=== PATIENT | female | born 1955 | race Caucasian/White ===

== ENCOUNTER → 2018-03-29 08:34 | Outpatient (CLI) | payer OTHER, SELFPAY ==
--- NOTE | 2018-03-29 08:40 | BI_ITS ---
MAMMOGRAPHY - BILATERAL SCREENING REASON FOR EXAM: Female, 62 years old. Routine annual screening examination. PERTINENT HISTORY: Non-contributory. TECHNIQUE: Digital bilateral breast hannah (3D mammographic acquisition) in the CC and MLO projections. 2-D mediolateral oblique (MLO) and craniocaudad (CC) views of both breasts were obtained. CAD: Full Field Digital Mammography with Computer Added Detection was performed. COMPARISON: Comparison is made with prior study dated March 21, 2017 and June 06, 2013. FINDINGS: Breast Composition: There are scattered areas of fibroglandular density. There are no dominant masses or suspicious calcifications. Stable appearance of the small calcified nodules in the upper outer quadrant of the right breast. No other significant abnormalities are identified. There has been no significant change since the prior study. BI/SCREENING MAMM (CAD), BILAT IMPRESSION: Stable bilateral screening mammogram. Yearly follow-up mammogram recommended. (A) ASSESSMENT CATEGORY: BIRADS Category 2: Benign. A letter regarding these results will be sent to the patient by the facility within 30 days. Approximately 10% of breast cancers are not detected by mammography. A normal mammogram should not delay biopsy of a clinically suspicious abnormality. [id number] Electronically Signed: Francesco Rodriguez MD at 15:16 EDT Tel [phone], Service support ,
== END ==
PROVIDERS: Visit Provider Family Medicine
DX: Z12.31 Encounter for screening mammogram for malignant neoplasm of breast (principal)
CPT/HCPCS: 77063; 77067

== ENCOUNTER 2018-03-30 02:42 | Emergency (ER) | payer BC, OTHER, SELFPAY ==
[2018-03-30 02:43] VITALS: BP 127/79; PULSE 80; RESP 18; TEMP 36.4; O2SAT 97; BMI 39.9
--- NOTE | 2018-03-30 03:05 | ED.DCSUM_ITS ---
- ER Visit Summary Date of Service: 03/30/18 Chief Complaint: [] Left bicep injury History of Present Illness: The patient is a 62 F [] patient stated she was doing yard work and overdid it and hurt her left bicep 2 days ago. She is having pain in the lateral aspect of the bicep. She is using ibuprofen heat worse with movement. Came in for further evaluation Physical Examination: [] Vital signs reviewed General: Well-nourished well-developed Head: Normocephalic atraumatic Eyes: Pupils equal round and reactive to light extraocular movements intact ENT: TMs clear no hemotympanum no trauma Neck: Nontender full range of motion Cardiovascular: Regular rate rhythm no murmurs normal S1-S2 Respiratory: No distress clear to auscultation bilaterally chest nontender Abdomen: Soft nontender nondistended normal bowel sounds no masses Back: Nontender no CVA tenderness Extremities: Tender left lateral bicep. No swelling or deformity. Tendons are intact. No tenderness of the shoulder tricep Skin: Normal color no trauma Neuro alert oriented cranial nerves II through XII intact normal strength sensation reflexes Test Results: [] Emergency Department Course and Treatment: [] At this time I feel the patient strained her bicep. She will rest and ice and was given David wrap. Was given a shot of Toradol we will continue ibuprofen and anti-inflammatories. Will follow -up as an outpatient. Treatment Plan: [] Disposition: [] Impression: [] Left bicep strain This note was generated with [employer] dictation software. It may contain incorrect words, spelling, and punctuation that were not noted in review of the chart prior to signing ED Disposition - Plan for ED Patient: Chief Complaint: Upper Extremity Injury Referrals: [facility] Doctor,Out of [Primary Care Provider] -
--- NOTE | 2018-03-30 03:05 | ED.DEP ---
ED Disposition - Plan for ED Patient: Chief Complaint: Upper Extremity Injury Instructions: ED Strain Muscle Ext Referrals: [facility] Doctor,Out of [Primary Care Provider] -
[2018-03-30] MEDS: Ketorolac 60 MG/2 ML Vial IM (03:13)
[2018-03-30 03:15] VITALS: PULSE 75; RESP 18
[2018-03-30 03:35] VITALS: BP 128/83; PULSE 71; RESP 18; O2SAT 97
== END 2018-03-30 03:35 | disposition home or self-care (01) ==
LOC: ED 03:12
PROVIDERS: Emergency Provider Emergency Medicine
DX: S46.212A Strain of muscle, fascia and tendon of other parts of biceps, left arm, initial encounter (principal); E66.9 Obesity, unspecified; I10 Essential (primary) hypertension; E78.00 Pure hypercholesterolemia, unspecified; Z79.899 Other long term (current) drug therapy; Z79.82 Long term (current) use of aspirin; X50.0XXA Overexertion from strenuous movement or load, initial encounter; Y93.H2 Activity, gardening and landscaping; Y92.007 Garden or yard of unspecified non-institutional (private) residence as the place of occurrence of the external cause; Y99.8 Other external cause status
CPT/HCPCS: 96372; 99282

== ENCOUNTER 2018-05-15 19:41 | Emergency (ER) | payer BC, OTHER, SELFPAY ==
[2018-05-15 19:41] VITALS: BP 109/66; PULSE 87; RESP 16; TEMP 36.6; O2SAT 99; BMI 39.6
--- NOTE | 2018-05-15 20:10 | RAD_ITS ---
STUDY: X-RAY - LEFT KNEE REASON FOR EXAM: Female, 62 years old. Left knee pain. TECHNIQUE: 3 view(s) of the knee. COMPARISON: None. FINDINGS: Normal visualized distal femur. Normal visualized proximal tibia and fibula. Normal proximal tibiofibular articulation. There is no demonstrated fracture. There is moderate degenerative arthrosis of the medial femorotibial compartment with moderate joint space narrowing. Normal lateral femorotibial compartment. Normal patellofemoral articulation. There is a soft tissue prominence in the suprapatellar region suggesting a small volume joint effusion. The soft tissue structures are unremarkable. RAD/Knee 3 Views IMPRESSION: Small effusion. Degenerative changes of the medial tibiofemoral compartment. Electronically Signed: Gokul Gallagher MD at 20:29 EDT , Service support ,
[2018-05-15] MEDS: HYDROcodone Bitartrate/Apap 5/325 Tablet PO (20:56)
[2018-05-15] MEDS: Triamcinolone Acetonide 40 MG/ML Vial IU (20:57)
--- NOTE | 2018-05-15 22:37 | ED.VISSUMM ---
- ER Visit Summary Date of Service: 05/15/18 Chief Complaint: Left knee pain History of Present Illness: The patient is a [address] Resendez. She reports that she stood from a chair this afternoon had the abrupt onset of left knee pain. She reports the sharp pain is 10 out of 10 at worst and 8 out of 10 currently. Is worsened by bending or near walking. She taken Tylenol without relief. She denies any other trauma. No fall, MVA, or change in activity. She denies any paresthesias or weakness. Review of systems: General: No fever, chills, cold sweats. Cardiovascular: No chest pain, palpitations. Respiratory: No cough, shortness of breath, dyspnea on exertion. Gastrointestinal: No abdominal pain, nausea, vomiting, diarrhea, melena, or hematochezia. Genitourinary: No dysuria, frequency, hematuria. Skin: No rash. Neuro: No headache, numbness, weakness. Physical Examination: Vitals: Stable. Afebrile. General: Well-nourished and well-developed. Head: Normocephalic atraumatic. Neck: Supple, no lymphadenopathy. No JVD. Nontender. Cardiovascular: Regular rate and rhythm. No murmurs. Respiratory: No respiratory distress. Clear to auscultation bilaterally. Abdominal: Soft, nontender, nondistended, normal bowel sounds. No guarding, rebound, or peritoneal signs. Back: Nontender. Extremities: Left knee has a small joint effusion. There is no overlying erythema or warmth to suggest a septic joint. She has pain with anterior drawer, medial, and lateral stress. There is no ligamentous instability. She has a 2+ dorsalis pedis pulse.. Skin: Normal color, no rash. Neurologic: Alert and oriented ?3. Cranial nerves II through XII are intact. Normal strength and sensation. Psych: Normal affect. Test Results: X-ray shows a small effusion and degenerative changes. Emergency Department Course and Treatment: Patient was treated with [place]. I had a prolonged discussion about the possibility of arthrocentesis. She did opt for this. She does understand that this increases the risk of a joint infection. She had 20 cc of synovial fluid removed and 9 cc of bupivacaine and 40 mg of Kenalog were instilled in the joint. She had great relief of her pain. Treatment Plan: Patient be discharged instructions follow Dr. Soria within a week if not improving. Return to the emergency department for any worsening symptoms. Disposition: To home in improved and stable condition. Impression: 1. Left knee pain, acute. 2. Therapeutic arthrocentesis left knee. Procedure note: Patient had her left knee prepped with Betadine. It was then draped in a sterile fashion. The medial side of her joint just beneath her patella was accessed with an 18-gauge needle. 20 cc of synovial fluid were removed. Bupivacaine and Kenalog were instilled. She tolerated this well. This note was generated with [employer] dictation software. It may contain incorrect words, spelling, and punctuation that were not noted in review of the chart prior to signing ED Disposition - Plan for ED Patient: Disposition: Home or Assisted Living Chief Complaint: Lower Extremity Injury Instructions: ED Knee Pain [facility]O Prescriptions: Hydrocodone/Acetaminophen [[place] 5-325 Tablet] 1 - 2 each PO 4X/DAY PRN PRN 5 Days #20 tablet PRN Reason: Pain Referrals: Javi Soria DO [STAFF PHYSICIAN] - 1 Week if not improving
[2018-05-15] MEDS: Bupivacaine Mpf 0.5% 30 ML VIAL INFILT (22:49)
[2018-05-15 22:50] VITALS: PULSE 98; RESP 14; O2SAT 98
== END 2018-05-15 23:02 | disposition home or self-care (01) ==
LOC: ED 20:48
PROVIDERS: Emergency Provider Emergency Medicine; Family Provider Family Medicine; PCP Family Medicine
DX: M25.562 Pain in left knee (principal); M25.462 Effusion, left knee; I10 Essential (primary) hypertension; E78.00 Pure hypercholesterolemia, unspecified; Z79.82 Long term (current) use of aspirin; Z79.899 Other long term (current) drug therapy
CPT/HCPCS: 20610; 73562; 99284

== ENCOUNTER 2018-06-05 01:03 | Emergency (ER) | payer SELFPAY ==
[2018-06-05 01:05] VITALS: BP 134/67; PULSE 64; RESP 18; TEMP 36.4; O2SAT 95; BMI 39.1
--- NOTE | 2018-06-05 01:58 | ED.VIS.GEN ---
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 - Past Medical History (1) Diabetes mellitus type 2, noninsulin dependent Status: Chronic Past Medical History - Allergies and Home Meds Allergies/Adverse Reactions: Allergies diflunisal [From Dolob[place]] Allergy (Verified 06/05/18 01:10) Rash Primary Care Physician: Laurent Resendez MD [Primary Care Provider] - Smoking Status: Never smoker Review of Systems All systems negative except as indicated General: Denies: Chills, Fever Musculoskeletal: Reports: Arthralgias - other joints but not all, Extremity Pain. Denies: Back pain Skin: Denies: Rash Physical Exam Vital Signs/Narrative: Vital Signs Temp Pulse Resp BP Pulse Ox 06/05/18 01:05 97.5 F L 64 18 134/67 H 95 Inital Vital Signs reviewed: Yes General: Well nourished, Well developed Head: Normocephalic, Atraumatic Extremities: Tenderness - right wrist at median nerve tunnel; Tinels causes pain but not tingling/numbness. Positive Phalen test, reproducing numbness in median nerve distribution., - - good ROM right wrist. no erythema or excessive warmth. Neurological: Alert, Oriented x3, Cranial nerves II-XII grossly intact, Normal Strength, Normal Sensation Psychological: Normal affect Diagnostic/Tx/Re-eval - Medical Decision Making Likely carpal tunnel syndrome. She states she already bought a brace. We discussed bending it into the right position, continuing anti-inflammatories, gave her a prescription for a few Ultram, and advised to follow-up with her orthopedic doctor who she saw a week ago. ED Disposition - Plan for ED Patient: Disposition: Home or Assisted Living Chief Complaint: Upper Extremity Injury Diagnosis: Carpal tunnel syndrome of right wrist Instructions: ED Carpal Tunnel Prescriptions: traMADol [Ultram] 50 mg PO Q4H PRN PRN 2 Days #10 tab PRN Reason: Pain Referrals: Srikanth Adams DO [STAFF PHYSICIAN] - 1 Week if not improving Additional Instructions: continue using NSAIDs daily as tolerated.
[2018-06-05 02:11] VITALS: BP 130/60; PULSE 75; RESP 16; O2SAT 97
[2018-06-05] MEDS: traMADol 50 MG Tablet PO (02:11)
== END 2018-06-05 02:13 | disposition home or self-care (01) ==
PROVIDERS: Emergency Provider Emergency Medicine; Family Provider Family Medicine; PCP Family Medicine
DX: G56.01 Carpal tunnel syndrome, right upper limb (principal); E11.9 Type 2 diabetes mellitus without complications; Z79.82 Long term (current) use of aspirin; Z79.899 Other long term (current) drug therapy
CPT/HCPCS: 99283

== ENCOUNTER → 2018-09-21 10:07 | Outpatient (CLI) | payer SELFPAY ==
--- NOTE | 2018-09-21 10:11 | RAD_ITS ---
STUDY: X-RAY - RIGHT HAND REASON FOR EXAM: Female, 62 years old. Rheumatoid arthritis, fibromyalgia TECHNIQUE: 3 view(s) of the hand. COMPARISON: None. FINDINGS: Normal radiocarpal articulation. Normal distal radioulnar joint. Normal visualized carpal bones. 2 mild degenerative changes of the greater multangular navicular joint. There is degenerative arthrosis of the carpometacarpal (CMC) articulation of the thumb. Normal second through fifth carpometacarpal joints. Normal metacarpi. There is degenerative arthrosis of the metacarpophalangeal (MCP) joints. There is degenerative arthrosis of the interphalangeal joint of the thumb with articular joint space narrowing. Normal proximal and distal phalanges of the thumb. Normal metacarpophalangeal joints of the second through fifth fingers. There are mild arthritic changes of the second through fifth MP joints. Normal phalanges of the second through fifth fingers. The soft tissue structures are unremarkable. RAD/Hand Min 3 Views IMPRESSION: Diffuse osteoarthritic changes as detailed above. No joint erosions or abnormal soft tissue calcifications are seen. Electronically Signed: Juan Subramanian MD at 18:16 EST , Service support ,
--- NOTE | 2018-09-21 10:11 | RAD_ITS ---
STUDY: X-RAY - LEFT HAND REASON FOR EXAM: Female, 62 years old. Rheumatoid arthritis, fibromyalgia TECHNIQUE: 3 view(s) of the hand. COMPARISON: None. FINDINGS: Normal radiocarpal articulation. Normal distal radioulnar joint. Normal visualized carpal bones. There mild degenerative changes of the greater multangular navicular joint. There is degenerative arthrosis of the carpometacarpal (CMC) articulation of the thumb. Normal second through fifth carpometacarpal joints. Normal metacarpi. There is degenerative arthrosis of the metacarpophalangeal (MCP) joints. There is degenerative arthrosis of the interphalangeal joint of the thumb with articular joint space narrowing. Normal proximal and distal phalanges of the thumb. Normal metacarpophalangeal joints of the second through fifth fingers. There are osteoarthritic changes of the second, third, and fourth DIP joints. Normal phalanges of the second through fifth fingers. The soft tissue structures are unremarkable. RAD/Hand Min 3 Views IMPRESSION: Diffuse osteoarthritic changes as detailed above. No osseous erosions or abnormal soft tissue calcifications are seen. Electronically Signed: Juan Subramanian MD at 18:15 EST , Service support ,
[2018-09-21 12:24] LABS: Absolute Lymphocyte Count 1.36 X10^3/ul (0.83-4.51); Absolute Neutrophil Count 6.9 X10^3/uL (2.0-7.7); Basophil# 0.04 X10^3/uL; Basophil% 0.4 % (0-1); Eosinophil# 0.46 X10^3/uL; Eosinophils% 4.9 % (0-5); Hematocrit 39.1 % (37-47); Hemoglobin 12.4 g/dl (12.0-15.0); Lymphocyte # 1.36 X10^3/ul (4.0); Lymphocyte % 14.3 % (19-41); Mean Corp Hgb Conc 31.7 g/gl (32-36); Mean Corpuscular Hgb 27.8 pg (27.0-32.0); Mean Corpuscular Volume 87.7 fL (81-99); Mean Platelet Vol. 9.4 fl (6.2-12.0); Monocyte# 0.69 X10^3/uL; Monocyte% 7.3 % (0-10); Neutrophil % 72.8 % (47-70); Platelet Count 314 K/mm3 (150-450); RBC Distribution Width CV 13.2 % (11.6-14.6); Red Blood Count 4.46 M/mm3 (4.2-5.4); White Blood Count 9.5 K/mm3 (4.4-11.0)
[2018-09-21 12:27] LABS: POSITIVE COUNT NO; POSITIVE DIFFERENTIAL NO; POSITIVE MORPHOLOGY NO
[2018-09-21 12:38] LABS: ALB/GLOB Ratio 0.8 RATIO (0.9-2.4); AST(SGOT) 13 U/L (15-37); Alanine Aminotransfer ALT/SGPT 22 U/L (13-56); Albumin, Serum 3.3 g/dL (3.2-5.0); Alkaline Phosphatase 65 U/L (45-117); Anion Gap 9 (5-15); BUN 22 mg/dL (7-18); BUN/Creat Ratio 30.2 RATIO (10-20); Calcium,Total 9.6 mg/dL (8.5-10.1); Chloride 106 mmol/L (98-107); Creatinine, Serum 0.73 mg/dL (0.55-1.02); EST Glomerular Filtration Rate 86 mL/min (>60); Est Glom Filt Rate - Afr Amer 104 mL/min (>60); Globulin 4.2 g/dL (2.2-4.2); Glucose 110 mg/dL (74-106); Potassium 3.9 mmol/L (3.5-5.1); Protein, Total 7.5 g/dL (6.4-8.2); Sodium Level 140 mmol/L (136-145)
[2018-09-25 10:11] LABS: CCP IgG Antibodies > 250 units (0-19); HEPATITIS B SURFACE AG Negative (Negative); Hep B Surface Antibodies Non Reactive (.); Hep C Antibodies <0.1 s/co ratio (0.0-0.9)
== END ==
PROVIDERS: Family Provider Family Medicine; PCP Family Medicine; Referring Provider Internal Medicine Rheumatology; Visit Provider Internal Medicine Rheumatology
DX: M05.79 Rheumatoid arthritis with rheumatoid factor of multiple sites without organ or systems involvement (principal); M79.7 Fibromyalgia; M15.9 Polyosteoarthritis, unspecified
CPT/HCPCS: 36415; 73130; 80053; 85025; 86200; 86706; 86803; 87340

== ENCOUNTER 2018-09-24 04:32 | Emergency (ER) | payer SELFPAY ==
[2018-09-24 04:33] VITALS: BP 136/71; PULSE 82; RESP 18; TEMP 36.4; O2SAT 98; BMI 38.2
--- NOTE | 2018-09-24 05:12 | RAD_ITS ---
HISTORY: C/O RT KNEE PAINNKIHX OF ARTHRITIS COMPARISON: None FINDINGS: XR right Knee Complete 4 Views or More: No fracture or acute disease. Joint spaces appear preserved. No significant arthritis. A small developmental defect (dorsal patellar defect) may be present. No significant joint effusion. IMPRESSION: No acute disease or suspicious findings. No significant arthritis. at 0572 Reported and signed by: Toan Rivera MD Electronically Signed: Toan Rivera, at 5:49 EST Tel , Service support , RAD/Knee 4 or More Views
--- NOTE | 2018-09-24 05:28 | ED.VISSUMM ---
- ER Visit Summary Date of Service: 09/24/18 Chief Complaint: Right knee pain History of Present Illness: The patient is a 62 F presenting with right knee pain. Patient states this has been ongoing for the past week. She denies injury or trauma. She was seen by her systems coordinator on Monday. She was started on prednisone which she started on Monday. She has been taking Tylenol arthritis as well. She complains of continued pain. Denies fever or other complaints. Physical Examination: Vitals are stable. Patient is afebrile. Alert no acute distress. HEENT exam is unremarkable. Lungs are clear and equal bilaterally. Heart is regular rate and rhythm. Extremities right lateral knee tenderness to palpation. Active full range of motion. No erythema, no warmth. Normal distal pulses. No calf tenderness. Skin is warm and dry. No focal neurologic deficit. Remainder of exam is unremarkable. Emergency Department Course and Treatment: Right knee x-ray shows no acute process. Patient was given [place] and a prescription for short course of [place]. She is advised to follow-up with her primary care physician and systems coordinator. She is advised to return to ED if worsening complaints. Disposition: Discharge home Impression: Right knee pain This note was generated with [employer] dictation software. It may contain incorrect words, spelling, and punctuation that were not noted in review of the chart prior to signing ED Disposition - Plan for ED Patient: Chief Complaint: Lower Extremity Injury Instructions: ED Knee Pain [facility] Prescriptions: Hydrocodone Bitart/Apap 5-325 [[place] 5MG-325MG] 1 tablet PO Q6H PRN PRN 3 Days #10 tablet PRN Reason: Pain Referrals: Laurent Resendez MD [Primary Care Provider] -
--- NOTE | 2018-09-24 06:06 | DCINST.ED_ITS ---
ED Disposition - Plan for ED Patient: Chief Complaint: Lower Extremity Injury Instructions: ED Knee Pain [facility]O Prescriptions: Hydrocodone Bitart/Apap 5-325 [[place] 5MG-325MG] 1 tablet PO Q6H PRN PRN 3 Days #10 tablet PRN Reason: Pain Referrals: Laurent Resendez MD [Primary Care Provider] -
[2018-09-24] MEDS: HYDROcodone Bitartrate/Apap 5/325 Tablet PO (06:16)
[2018-09-24 06:19] VITALS: BP 154/89; PULSE 85; RESP 18; O2SAT 95
== END 2018-09-24 06:39 | disposition home or self-care (01) ==
PROVIDERS: Emergency Provider Emergency Medicine; Family Provider Family Medicine; PCP Family Medicine
DX: M25.561 Pain in right knee (principal); M06.9 Rheumatoid arthritis, unspecified; Z79.52 Long term (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 of systemic steroids
CPT/HCPCS: 73564; 99284

== ENCOUNTER → 2018-09-24 12:31 | Outpatient (CLI) | payer BC, SELFPAY ==
[2018-09-24 04:33] VITALS: BMI 38.2
== END ==
PROVIDERS: Family Provider Family Medicine; PCP Family Medicine; Referring Provider Internal Medicine Rheumatology; Visit Provider Internal Medicine Rheumatology
DX: M05.79 Rheumatoid arthritis with rheumatoid factor of multiple sites without organ or systems involvement (principal)

== ENCOUNTER → 2018-12-21 08:06 | Outpatient (CLI) | payer SELFPAY ==
[2018-12-21 10:05] LABS: Absolute Lymphocyte Count 1.01 X10^3/ul (0.83-4.51); Absolute Neutrophil Count 7.1 X10^3/uL (2.0-7.7); Basophil# 0.03 X10^3/uL; Basophil% 0.4 % (0-1); Eosinophil# 0.03 X10^3/uL; Eosinophils% 0.4 % (0-5); Hematocrit 46.4 % (37-47); Hemoglobin 14.3 g/dl (12.0-15.0); Lymphocyte # 1.01 X10^3/ul (4.0); Lymphocyte % 11.9 % (19-41); Mean Corp Hgb Conc 30.8 g/gl (32-36); Mean Corpuscular Hgb 28.8 pg (27.0-32.0); Mean Corpuscular Volume 93.4 fL (81-99); Mean Platelet Vol. 10.2 fl (6.2-12.0); Monocyte# 0.21 X10^3/uL; Monocyte% 2.5 % (0-10); Neutrophil # 7.07 X10^3/uL (2.7-7.7); Platelet Count 250 K/mm3 (150-450); RBC Distribution Width CV 15.9 % (11.6-14.6); Red Blood Count 4.97 M/mm3 (4.2-5.4); White Blood Count 8.5 K/mm3 (4.4-11.0)
[2018-12-21 10:13] LABS: POSITIVE COUNT NO; POSITIVE DIFFERENTIAL NO; POSITIVE MORPHOLOGY NO
[2018-12-21 10:18] LABS: AST(SGOT) 11 U/L (15-37); Alanine Aminotransfer ALT/SGPT 28 U/L (13-56); Albumin, Serum 3.5 g/dL (3.2-5.0); Alkaline Phosphatase 54 U/L (45-117); Anion Gap 9 (5-15); BUN 22 mg/dL (7-18); BUN/Creat Ratio 23.4 RATIO (10-20); Calcium,Total 8.2 mg/dL (8.5-10.1); Chloride 106 mmol/L (98-107); Creatinine, Serum 0.94 mg/dL (0.55-1.02); EST Glomerular Filtration Rate 64 mL/min (>60); Est Glom Filt Rate - Afr Amer 78 mL/min (>60); Globulin 3.4 g/dL (2.2-4.2); Glucose 189 mg/dL (74-106); Protein, Total 6.9 g/dL (6.4-8.2); Sodium Level 137 mmol/L (136-145)
== END ==
PROVIDERS: Family Provider Family Medicine; PCP Family Medicine; Referring Provider Internal Medicine Rheumatology; Visit Provider Internal Medicine Rheumatology
DX: M06.89 Other specified rheumatoid arthritis, multiple sites (principal); M79.7 Fibromyalgia; M15.9 Polyosteoarthritis, unspecified; M21.40 Flat foot [pes planus] (acquired), unspecified foot; I10 Essential (primary) hypertension; E11.9 Type 2 diabetes mellitus without complications; E78.5 Hyperlipidemia, unspecified; L68.0 Hirsutism; F32.89 Other specified depressive episodes
CPT/HCPCS: 36415; 80053; 85025

== ENCOUNTER → 2019-02-15 | Outpatient (CLI) | payer OTHER, SELFPAY ==
[2019-02-15 10:26] LABS: Absolute Neutrophil Count 6.3 X10^3/uL (2.0-7.7); Basophil# 0.02 X10^3/uL; Basophil% 0.3 % (0-1); Eosinophil# 0.03 X10^3/uL; Eosinophils% 0.4 % (0-5); Hematocrit 42.6 % (37-47); Hemoglobin 13.8 g/dl (12.0-15.0); Mean Corp Hgb Conc 32.4 g/gl (32-36); Mean Corpuscular Hgb 30.5 pg (27.0-32.0); Mean Corpuscular Volume 94.2 fL (81-99); Mean Platelet Vol. 9.8 fl (6.2-12.0); Monocyte# 0.19 X10^3/uL; Monocyte% 2.5 % (0-10); Neutrophil # 6.25 X10^3/uL (2.7-7.7); Neutrophil % 83.6 % (47-70); Platelet Count 240 K/mm3 (150-450); RBC Distribution Width SD 50.7 fl (35.1-43.9); Red Blood Count 4.52 M/mm3 (4.2-5.4); White Blood Count 7.5 K/mm3 (4.4-11.0)
[2019-02-15 10:35] LABS: POSITIVE COUNT NO; POSITIVE DIFFERENTIAL NO; POSITIVE MORPHOLOGY NO
[2019-02-15 10:40] LABS: ALB/GLOB Ratio 1.1 RATIO (0.9-2.4); AST(SGOT) 17 U/L (15-37); Alanine Aminotransfer ALT/SGPT 29 U/L (13-56); Albumin, Serum 3.5 g/dL (3.2-5.0); Alkaline Phosphatase 53 U/L (45-117); Anion Gap 7 (5-15); BUN 20 mg/dL (7-18); Chloride 106 mmol/L (98-107); EST Glomerular Filtration Rate 60 mL/min (>60); Est Glom Filt Rate - Afr Amer 72 mL/min (>60); Globulin 3.3 g/dL (2.2-4.2); Glucose 160 mg/dL (74-106); Potassium 4.3 mmol/L (3.5-5.1); Protein, Total 6.8 g/dL (6.4-8.2); Sodium Level 139 mmol/L (136-145)
== END | disposition home or self-care (01) ==
LOC: MTLAB 08:15
PROVIDERS: Family Provider Family Medicine; PCP Family Medicine; Referring Provider Internal Medicine Rheumatology; Visit Provider Internal Medicine Rheumatology
DX: M05.79 Rheumatoid arthritis with rheumatoid factor of multiple sites without organ or systems involvement (principal); M79.7 Fibromyalgia; M15.9 Polyosteoarthritis, unspecified; M21.40 Flat foot [pes planus] (acquired), unspecified foot; I10 Essential (primary) hypertension; E11.9 Type 2 diabetes mellitus without complications; E78.5 Hyperlipidemia, unspecified; L68.0 Hirsutism; F32.89 Other specified depressive episodes; Z79.899 Other long term (current) drug therapy
CPT/HCPCS: 36415; 80053; 85025

== ENCOUNTER → 2019-05-27 08:20 | Outpatient (CLI) | payer OTHER, SELFPAY ==
[2019-05-27 09:59] LABS: Absolute Lymphocyte Count 1.63 X10^3/uL (0.83-4.51); Absolute Neutrophil Count 6.6 X10^3/uL (2.0-7.7); Basophil# 0.06 X10^3/uL; Basophil% 0.7 % (0-1); Eosinophil# 0.13 X10^3/uL; Eosinophils% 1.5 % (0-5); Hematocrit 41.8 % (37-47); Hemoglobin 13.5 g/dL (12.0-15.0); Lymphocyte # 1.63 X10^3/ul (4.0); Lymphocyte % 18.3 % (19-41); Mean Corp Hgb Conc 32.3 g/dL (32-36); Mean Corpuscular Hgb 30.8 pg (27.0-32.0); Mean Corpuscular Volume 95.4 fL (81-99); Mean Platelet Vol. 10.2 fl (6.2-12.0); Monocyte# 0.36 X10^3/uL; NRBC Flagged by Analyzer 0 % (0-5); Neutrophil # 6.63 X10^3/uL (2.7-7.7); Neutrophil % 74.4 % (47-70); Platelet Count 269 K/mm3 (150-450); RBC Distribution Width CV 12.8 % (11.6-14.6); RBC Distribution Width SD 44.4 fl (35.1-43.9); Red Blood Count 4.38 M/mm3 (4.2-5.4); White Blood Count 8.9 K/mm3 (4.4-11.0)
[2019-05-27 10:29] LABS: ALB/GLOB Ratio 1.1 RATIO (0.9-2.4); AST(SGOT) 20 U/L (15-37); Alanine Aminotransfer ALT/SGPT 40 U/L (13-56); Albumin, Serum 3.7 g/dL (3.2-5.0); Alkaline Phosphatase 66 U/L (45-117); Anion Gap 7 (5-15); BUN 21 mg/dL (7-18); Calcium,Total 9.1 mg/dL (8.5-10.1); Chloride 107 mmol/L (98-107); Creatinine, Serum 0.95 mg/dL (0.55-1.02); EST Glomerular Filtration Rate 63 mL/min (>60); Est Glom Filt Rate - Afr Amer 76 mL/min (>60); Globulin 3.3 g/dL (2.2-4.2); Glucose 176 mg/dL (74-106); Potassium 4.1 mmol/L (3.5-5.1); Sodium Level 139 mmol/L (136-145)
== END ==
PROVIDERS: Family Provider Family Medicine; PCP Family Medicine; Referring Provider Internal Medicine Rheumatology; Visit Provider Internal Medicine Rheumatology
DX: M05.79 Rheumatoid arthritis with rheumatoid factor of multiple sites without organ or systems involvement (principal); M79.7 Fibromyalgia; M15.9 Polyosteoarthritis, unspecified; M21.40 Flat foot [pes planus] (acquired), unspecified foot; I10 Essential (primary) hypertension; E11.9 Type 2 diabetes mellitus without complications; E78.5 Hyperlipidemia, unspecified; L68.0 Hirsutism; F32.89 Other specified depressive episodes; Z79.899 Other long term (current) drug therapy
CPT/HCPCS: 36415; 80053; 85025

== ENCOUNTER → 2019-08-23 | Outpatient (CLI) | payer OTHER, SELFPAY ==
[2019-08-23 10:10] LABS: Absolute Neutrophil Count 8.6 X10^3/uL (2.0-7.7); Basophil# 0.03 X10^3/uL; Basophil% 0.3 % (0-1); Eosinophil# 0.05 X10^3/uL; Eosinophils% 0.5 % (0-5); Hematocrit 45.7 % (37-47); Hemoglobin 14.8 g/dL (12.0-15.0); Lymphocyte % 9.8 % (19-41); Mean Corp Hgb Conc 32.4 g/dL (32-36); Mean Corpuscular Hgb 31.2 pg (27.0-32.0); Mean Corpuscular Volume 96.4 fL (81-99); Mean Platelet Vol. 9.5 fl (6.2-12.0); Monocyte# 0.32 X10^3/uL; Monocyte% 3.1 % (0-10); NRBC Flagged by Analyzer 0 % (0-5); Neutrophil # 8.63 X10^3/uL (2.7-7.7); Neutrophil % 84.5 % (47-70); POSITIVE MORPHOLOGY YES; Platelet Count 283 K/mm3 (150-450); RBC Distribution Width CV 13.1 % (11.6-14.6); Red Blood Count 4.74 M/mm3 (4.2-5.4); White Blood Count 10.2 K/mm3 (4.4-11.0)
[2019-08-23 10:21] LABS: Differential Indicated SCAN CRITERIA MET
[2019-08-23 11:04] LABS: AST(SGOT) 22 U/L (15-37); Alanine Aminotransfer ALT/SGPT 41 U/L (13-56); Albumin, Serum 3.7 g/dL (3.2-5.0); Alkaline Phosphatase 59 U/L (45-117); Anion Gap 11 (5-15); BUN 16 mg/dL (7-18); BUN/Creat Ratio 14.3 RATIO (10-20); Calcium,Total 9.3 mg/dL (8.5-10.1); Chloride 104 mmol/L (98-107); Creatinine, Serum 1.12 mg/dL (0.55-1.02); EST Glomerular Filtration Rate 52 mL/min (>60); Est Glom Filt Rate - Afr Amer 63 mL/min (>60); Globulin 3.6 g/dL (2.2-4.2); Glucose 187 mg/dL (74-106); Potassium 4.2 mmol/L (3.5-5.1); Protein, Total 7.3 g/dL (6.4-8.2); Sodium Level 139 mmol/L (136-145)
== END | disposition home or self-care (01) ==
LOC: MTLAB 08:12
PROVIDERS: Family Provider Family Medicine; PCP Family Medicine; Referring Provider Internal Medicine Rheumatology; Visit Provider Internal Medicine Rheumatology
DX: M05.79 Rheumatoid arthritis with rheumatoid factor of multiple sites without organ or systems involvement (principal); M79.7 Fibromyalgia; M15.9 Polyosteoarthritis, unspecified; Z79.899 Other long term (current) drug therapy
CPT/HCPCS: 36415; 80053; 85025

== ENCOUNTER → 2019-11-19 | Outpatient (CLI) | payer OTHER, SELFPAY ==
[2019-11-19 10:37] LABS: Absolute Lymphocyte Count 1.22 X10^3/uL (0.83-4.51); Basophil# 0.09 X10^3/uL; Eosinophil# 0.12 X10^3/uL; Eosinophils% 1.3 % (0-5); Hemoglobin 14.5 g/dL (12.0-15.0); Lymphocyte # 1.22 X10^3/ul (4.0); Lymphocyte % 13.4 % (19-41); Mean Corp Hgb Conc 31.5 g/dL (32-36); Mean Corpuscular Hgb 30.5 pg (27.0-32.0); Mean Corpuscular Volume 96.8 fL (81-99); Mean Platelet Vol. 10.1 fl (6.2-12.0); Monocyte# 0.49 X10^3/uL; Monocyte% 5.4 % (0-10); NRBC Flagged by Analyzer 0 % (0-5); Neutrophil % 76.7 % (47-70); Platelet Count 303 K/mm3 (150-450); RBC Distribution Width CV 12.9 % (11.6-14.6); RBC Distribution Width SD 45.8 fl (35.1-43.9); Red Blood Count 4.75 M/mm3 (4.2-5.4); White Blood Count 9.1 K/mm3 (4.4-11.0)
[2019-11-19 11:17] LABS: ALB/GLOB Ratio 1.2 RATIO (0.9-2.4); AST(SGOT) 21 U/L (15-37); Alanine Aminotransfer ALT/SGPT 39 U/L (13-56); Albumin, Serum 3.9 g/dL (3.2-5.0); Alkaline Phosphatase 55 U/L (45-117); Anion Gap 8 (5-15); BUN 16 mg/dL (7-18); BUN/Creat Ratio 16.4 RATIO (10-20); Calcium,Total 9.6 mg/dL (8.5-10.1); Chloride 104 mmol/L (98-107); Creatinine, Serum 0.98 mg/dL (0.55-1.02); EST Glomerular Filtration Rate 61 mL/min (>60); Est Glom Filt Rate - Afr Amer 74 mL/min (>60); Globulin 3.2 g/dL (2.2-4.2); Glucose 147 mg/dL (74-106); Potassium 4.1 mmol/L (3.5-5.1); Protein, Total 7.1 g/dL (6.4-8.2); Sodium Level 138 mmol/L (136-145)
== END | disposition home or self-care (01) ==
LOC: MTLAB 07:38
PROVIDERS: PCP Family Medicine; Referring Provider Internal Medicine Rheumatology; Visit Provider Internal Medicine Rheumatology
DX: M05.79 Rheumatoid arthritis with rheumatoid factor of multiple sites without organ or systems involvement (principal); M79.7 Fibromyalgia; M15.9 Polyosteoarthritis, unspecified; M21.40 Flat foot [pes planus] (acquired), unspecified foot; I10 Essential (primary) hypertension; E78.5 Hyperlipidemia, unspecified; L68.0 Hirsutism; F32.89 Other specified depressive episodes; E11.9 Type 2 diabetes mellitus without complications; Z79.899 Other long term (current) drug therapy
CPT/HCPCS: 36415; 80053; 85025

== ENCOUNTER → 2020-02-01 | Outpatient (CLI) | payer OTHER, SELFPAY ==
[2020-02-01 11:33] LABS: Absolute Lymphocyte Count 1.65 X10^3/uL (0.83-4.51); Absolute Neutrophil Count 5.8 X10^3/uL (2.0-7.7); Basophil# 0.08 X10^3/uL; Basophil% 0.9 % (0-1); Eosinophil# 0.08 X10^3/uL; Eosinophils% 0.9 % (0-5); Hematocrit 45.9 % (37-47); Hemoglobin 14.8 g/dL (12.0-15.0); Lymphocyte # 1.65 X10^3/ul (4.0); Lymphocyte % 19.5 % (19-41); Mean Corp Hgb Conc 32.2 g/dL (32-36); Mean Corpuscular Hgb 30.7 pg (27.0-32.0); Mean Corpuscular Volume 95.2 fL (81-99); Mean Platelet Vol. 9.7 fl (6.2-12.0); Monocyte# 0.77 X10^3/uL; Monocyte% 9.1 % (0-10); NRBC Flagged by Analyzer 0 % (0-5); Neutrophil % 68.4 % (47-70); Platelet Count 298 K/mm3 (150-450); RBC Distribution Width CV 13.6 % (11.6-14.6); RBC Distribution Width SD 47.8 fl (35.1-43.9); Red Blood Count 4.82 M/mm3 (4.2-5.4); White Blood Count 8.5 K/mm3 (4.4-11.0)
[2020-02-01 11:46] LABS: ALB/GLOB Ratio 1.1 RATIO (0.9-2.4); AST(SGOT) 30 U/L (15-37); Alanine Aminotransfer ALT/SGPT 49 U/L (13-56); Albumin, Serum 4.1 g/dL (3.2-5.0); Alkaline Phosphatase 58 U/L (45-117); Anion Gap 7 (5-15); BUN 21 mg/dL (7-18); BUN/Creat Ratio 18.4 RATIO (10-20); Calcium,Total 9.1 mg/dL (8.5-10.1); Chloride 103 mmol/L (98-107); Creatinine, Serum 1.14 mg/dL (0.55-1.02); EST Glomerular Filtration Rate 51 mL/min (>60); Est Glom Filt Rate - Afr Amer 62 mL/min (>60); Globulin 3.6 g/dL (2.2-4.2); Glucose 102 mg/dL (74-106); Potassium 4.6 mmol/L (3.5-5.1); Protein, Total 7.7 g/dL (6.4-8.2); Sodium Level 139 mmol/L (136-145)
== END | disposition home or self-care (01) ==
LOC: LAB 11:07
PROVIDERS: PCP Family Medicine; Referring Provider Internal Medicine Rheumatology; Visit Provider Internal Medicine Rheumatology
DX: M05.79 Rheumatoid arthritis with rheumatoid factor of multiple sites without organ or systems involvement (principal); M79.7 Fibromyalgia; M15.9 Polyosteoarthritis, unspecified; M21.40 Flat foot [pes planus] (acquired), unspecified foot; I10 Essential (primary) hypertension; E11.9 Type 2 diabetes mellitus without complications; E78.5 Hyperlipidemia, unspecified; L68.0 Hirsutism; F32.89 Other specified depressive episodes; Z79.899 Other long term (current) drug therapy
CPT/HCPCS: 36415; 80053; 85025

== ENCOUNTER → 2020-04-21 | Outpatient (CLI) | payer OTHER, SELFPAY ==
[2020-04-21 15:20] LABS: Absolute Lymphocyte Count 1.28 X10^3/uL (0.83-4.51); Absolute Neutrophil Count 8.4 X10^3/uL (2.0-7.7); Basophil# 0.05 X10^3/uL; Basophil% 0.5 % (0-1); Eosinophil# 0.02 X10^3/uL; Eosinophils% 0.2 % (0-5); Hematocrit 44.4 % (37-47); Hemoglobin 13.8 g/dL (12.0-15.0); Lymphocyte # 1.28 X10^3/ul (4.0); Lymphocyte % 12.3 % (19-41); Mean Corp Hgb Conc 31.1 g/dL (32-36); Mean Corpuscular Hgb 30.8 pg (27.0-32.0); Mean Corpuscular Volume 99.1 fL (81-99); Mean Platelet Vol. 10.3 fl (6.2-12.0); Monocyte# 0.48 X10^3/uL; Monocyte% 4.6 % (0-10); NRBC Flagged by Analyzer 0 % (0-5); Neutrophil # 8.39 X10^3/uL (2.7-7.7); Neutrophil % 80.7 % (47-70); Platelet Count 285 K/mm3 (150-450); RBC Distribution Width CV 13.3 % (11.6-14.6); RBC Distribution Width SD 47.7 fl (35.1-43.9); Red Blood Count 4.48 M/mm3 (4.2-5.4); White Blood Count 10.4 K/mm3 (4.4-11.0)
[2020-04-21 15:45] LABS: AST(SGOT) 18 U/L (15-37); Alanine Aminotransfer ALT/SGPT 37 U/L (13-56); Albumin, Serum 3.6 g/dL (3.2-5.0); Alkaline Phosphatase 56 U/L (45-117); Anion Gap 8 (5-15); BUN 17 mg/dL (7-18); BUN/Creat Ratio 19.9 RATIO (10-20); Chloride 105 mmol/L (98-107); Creatinine, Serum 0.86 mg/dL (0.55-1.02); EST Glomerular Filtration Rate 71 mL/min (>60); Est Glom Filt Rate - Afr Amer 86 mL/min (>60); Globulin 3.7 g/dL (2.2-4.2); Glucose 128 mg/dL (74-106); Potassium 3.8 mmol/L (3.5-5.1); Protein, Total 7.3 g/dL (6.4-8.2); Sodium Level 140 mmol/L (136-145)
== END | disposition home or self-care (01) ==
LOC: LAB.FUTURE 12:07
PROVIDERS: PCP Family Medicine; Referring Provider Internal Medicine Rheumatology; Visit Provider Internal Medicine Rheumatology
DX: M05.712 Rheumatoid arthritis with rheumatoid factor of left shoulder without organ or systems involvement (principal); M79.7 Fibromyalgia; M15.9 Polyosteoarthritis, unspecified; M21.40 Flat foot [pes planus] (acquired), unspecified foot; I10 Essential (primary) hypertension; Z79.899 Other long term (current) drug therapy
CPT/HCPCS: 36415; 80053; 85025

== ENCOUNTER → 2020-05-04 | Outpatient (CLI) | payer OTHER, SELFPAY ==
--- NOTE | 2020-05-04 12:24 | RAD_ITS ---
STUDY: X-RAY CHEST REASON FOR EXAM: Female, 64 years old. 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 COMPARISON: None. FINDINGS: The lungs are clear and expanded. There is no demonstrated pleural abnormality. Normal size heart. Normal mediastinum and luis. Normal visualized pulmonary arteries. Normal visualized aortic arch and descending thoracic aorta. Normal visualized thoracic spine. Normal visualized ribs, clavicles, and shoulders. There is no demonstrated abnormality of the visualized soft tissue structures of the upper abdomen. RAD/Chest PA and Lateral IMPRESSION: Normal x-ray examination of the chest. Electronically Signed: Antony Dumont MD at 12:51 EDT , Service support ,
[2020-05-06 16:09] LABS: QNTFERON TB Mitogen Value > 10.00 IU/mL (.); QNTFERON TB Nil Value 0.02 IU/mL (.); QNTFERON TB1+ Ag Value 0.02 IU/mL (.); QNTFERON TB2+ Ag Value 0.02 IU/mL (.)
[2020-05-06 19:58] LABS: QNTIFERON TB Positive Criteria Negative (Negative)
== END | disposition home or self-care (01) ==
PROVIDERS: PCP Family Medicine; Referring Provider Internal Medicine Rheumatology; Visit Provider Internal Medicine Rheumatology
DX: M05.712 Rheumatoid arthritis with rheumatoid factor of left shoulder without organ or systems involvement (principal); M79.7 Fibromyalgia; M15.9 Polyosteoarthritis, unspecified; M21.40 Flat foot [pes planus] (acquired), unspecified foot; I10 Essential (primary) hypertension; E11.9 Type 2 diabetes mellitus without complications; E78.5 Hyperlipidemia, unspecified; L68.0 Hirsutism; F32.89 Other specified depressive episodes; Z79.899 Other long term (current) drug therapy
CPT/HCPCS: 36415; 71046; 86480

== ENCOUNTER → 2020-08-05 | Outpatient (CLI) | payer OTHER, SELFPAY ==
[2020-08-05 18:44] LABS: Absolute Lymphocyte Count 2.62 X10^3/uL (0.83-4.51); Absolute Neutrophil Count 5.8 X10^3/uL (2.0-7.7); Basophil# 0.09 X10^3/uL; Basophil% 0.9 % (0-1); Eosinophil# 0.27 X10^3/uL; Eosinophils% 2.8 % (0-5); Hematocrit 44.1 % (37-47); Hemoglobin 13.7 g/dL (12.0-15.0); Lymphocyte # 2.62 X10^3/ul (4.0); Lymphocyte % 26.8 % (19-41); Mean Corp Hgb Conc 31.1 g/dL (32-36); Mean Corpuscular Hgb 30.8 pg (27.0-32.0); Mean Corpuscular Volume 99.1 fL (81-99); Mean Platelet Vol. 10.2 fl (6.2-12.0); Monocyte% 8.2 % (0-10); NRBC Flagged by Analyzer 0 % (0-5); Neutrophil # 5.82 X10^3/uL (2.7-7.7); Neutrophil % 59.7 % (47-70); Platelet Count 305 K/mm3 (150-450); RBC Distribution Width CV 13.6 % (11.6-14.6); Red Blood Count 4.45 M/mm3 (4.2-5.4); White Blood Count 9.8 K/mm3 (4.4-11.0)
[2020-08-05 18:56] LABS: ALB/GLOB Ratio 1.1 RATIO (0.9-2.4); AST(SGOT) 21 U/L (15-37); Alanine Aminotransfer ALT/SGPT 45 U/L (13-56); Albumin, Serum 3.8 g/dL (3.2-5.0); Alkaline Phosphatase 64 U/L (45-117); Anion Gap 9 (5-15); BUN 15 mg/dL (7-18); BUN/Creat Ratio 16.8 RATIO (10-20); Chloride 103 mmol/L (98-107); Creatinine, Serum 0.89 mg/dL (0.55-1.02); EST Glomerular Filtration Rate 68 mL/min (>60); Est Glom Filt Rate - Afr Amer 82 mL/min (>60); Globulin 3.5 g/dL (2.2-4.2); Glucose 86 mg/dL (74-106); Potassium 3.8 mmol/L (3.5-5.1); Protein, Total 7.3 g/dL (6.4-8.2); Sodium Level 140 mmol/L (136-145)
== END | disposition home or self-care (01) ==
LOC: MTLAB 15:25
PROVIDERS: PCP Family Medicine; Referring Provider Internal Medicine Rheumatology; Visit Provider Internal Medicine Rheumatology
DX: M05.79 Rheumatoid arthritis with rheumatoid factor of multiple sites without organ or systems involvement (principal); M79.7 Fibromyalgia; M15.9 Polyosteoarthritis, unspecified; M21.40 Flat foot [pes planus] (acquired), unspecified foot; I10 Essential (primary) hypertension; E11.9 Type 2 diabetes mellitus without complications; E78.5 Hyperlipidemia, unspecified; L68.0 Hirsutism; F32.89 Other specified depressive episodes; Z79.899 Other long term (current) drug therapy
CPT/HCPCS: 36415; 80053; 85025

== ENCOUNTER → 2020-10-26 15:29 | Outpatient (CLI) | payer OTHER, SELFPAY ==
[2020-10-26 16:47] LABS: Absolute Lymphocyte Count 2.56 X10^3/uL (0.83-4.51); Absolute Neutrophil Count 6.1 X10^3/uL (2.0-7.7); Basophil# 0.08 X10^3/uL; Basophil% 0.8 % (0-1); Eosinophil# 0.28 X10^3/uL; Eosinophils% 2.8 % (0-5); Hematocrit 44.1 % (37-47); Hemoglobin 14.1 g/dL (12.0-15.0); Lymphocyte # 2.56 X10^3/ul (4.0); Lymphocyte % 25.8 % (19-41); Mean Corpuscular Hgb 31.1 pg (27.0-32.0); Mean Corpuscular Volume 97.4 fL (81-99); Mean Platelet Vol. 10.5 fl (6.2-12.0); Monocyte# 0.84 X10^3/uL; Monocyte% 8.5 % (0-10); NRBC Flagged by Analyzer 0 % (0-5); Neutrophil # 6.06 X10^3/uL (2.7-7.7); Platelet Count 262 K/mm3 (150-450); RBC Distribution Width CV 13.3 % (11.6-14.6); RBC Distribution Width SD 47.3 fl (35.1-43.9); Red Blood Count 4.53 M/mm3 (4.2-5.4); White Blood Count 9.9 K/mm3 (4.4-11.0)
[2020-10-26 16:58] LABS: ALB/GLOB Ratio 1.1 RATIO (0.9-2.4); AST(SGOT) 24 U/L (15-37); Alanine Aminotransfer ALT/SGPT 47 U/L (13-56); Albumin, Serum 3.7 g/dL (3.2-5.0); Alkaline Phosphatase 68 U/L (45-117); Anion Gap 7 (5-15); BUN 19 mg/dL (7-18); BUN/Creat Ratio 21.3 RATIO (10-20); Calcium,Total 8.9 mg/dL (8.5-10.1); Chloride 105 mmol/L (98-107); Creatinine, Serum 0.89 mg/dL (0.55-1.02); EST Glomerular Filtration Rate 68 mL/min (>60); Est Glom Filt Rate - Afr Amer 82 mL/min (>60); Globulin 3.5 g/dL (2.2-4.2); Glucose 96 mg/dL (74-106); Protein, Total 7.2 g/dL (6.4-8.2); Sodium Level 140 mmol/L (136-145)
== END ==
PROVIDERS: PCP Family Medicine; Referring Provider Internal Medicine Rheumatology; Visit Provider Internal Medicine Rheumatology
DX: M05.79 Rheumatoid arthritis with rheumatoid factor of multiple sites without organ or systems involvement (principal); M79.7 Fibromyalgia; M15.9 Polyosteoarthritis, unspecified; M21.40 Flat foot [pes planus] (acquired), unspecified foot; I10 Essential (primary) hypertension; E11.9 Type 2 diabetes mellitus without complications; E78.5 Hyperlipidemia, unspecified; L68.0 Hirsutism; F32.89 Other specified depressive episodes; Z79.899 Other long term (current) drug therapy
CPT/HCPCS: 36415; 80053; 85025

== ENCOUNTER → 2021-01-04 16:06 | Outpatient (CLI) | payer OTHER, SELFPAY ==
[2021-01-04 17:02] LABS: Absolute Lymphocyte Count 2.71 X10^3/uL (0.83-4.51); Basophil# 0.08 X10^3/uL; Basophil% 0.9 % (0-1); Eosinophil# 0.18 X10^3/uL; Hematocrit 42.8 % (37-47); Hemoglobin 13.8 g/dL (12.0-15.0); Lymphocyte # 2.71 X10^3/ul (4.0); Lymphocyte % 30.4 % (19-41); Mean Corp Hgb Conc 32.2 g/dL (32-36); Mean Corpuscular Hgb 31.3 pg (27.0-32.0); Mean Corpuscular Volume 97.1 fL (81-99); Mean Platelet Vol. 9.9 fl (6.2-12.0); Monocyte# 0.86 X10^3/uL; Monocyte% 9.7 % (0-10); NRBC Flagged by Analyzer 0 % (0-5); Neutrophil # 5.02 X10^3/uL (2.7-7.7); Neutrophil % 56.4 % (47-70); Platelet Count 259 K/mm3 (150-450); RBC Distribution Width CV 13.3 % (11.6-14.6); RBC Distribution Width SD 47.3 fl (35.1-43.9); Red Blood Count 4.41 M/mm3 (4.2-5.4); White Blood Count 8.9 K/mm3 (4.4-11.0)
[2021-01-04 17:37] LABS: ALB/GLOB Ratio 1.1 RATIO (0.9-2.4); AST(SGOT) 37 U/L (15-37); Alanine Aminotransfer ALT/SGPT 67 U/L (13-56); Albumin, Serum 3.6 g/dL (3.2-5.0); Alkaline Phosphatase 68 U/L (45-117); Anion Gap 9 (5-15); BUN 18 mg/dL (7-18); BUN/Creat Ratio 17.6 RATIO (10-20); Calcium,Total 9.1 mg/dL (8.5-10.1); Chloride 106 mmol/L (98-107); Creatinine, Serum 1.02 mg/dL (0.55-1.02); EST Glomerular Filtration Rate 58 mL/min (>60); Est Glom Filt Rate - Afr Amer 70 mL/min (>60); Globulin 3.4 g/dL (2.2-4.2); Glucose 111 mg/dL (74-106); Sodium Level 141 mmol/L (136-145)
== END ==
PROVIDERS: PCP Family Medicine; Referring Provider Internal Medicine Rheumatology; Visit Provider Internal Medicine Rheumatology
DX: M05.79 Rheumatoid arthritis with rheumatoid factor of multiple sites without organ or systems involvement (principal); M79.7 Fibromyalgia; M15.9 Polyosteoarthritis, unspecified; M21.40 Flat foot [pes planus] (acquired), unspecified foot; I10 Essential (primary) hypertension; E11.9 Type 2 diabetes mellitus without complications; E78.5 Hyperlipidemia, unspecified; L68.0 Hirsutism; F32.89 Other specified depressive episodes; Z79.899 Other long term (current) drug therapy
CPT/HCPCS: 36415; 80053; 85025

== ENCOUNTER → 2021-01-11 08:56 | Outpatient (CLI) | payer OTHER, SELFPAY ==
--- NOTE | 2021-01-11 09:10 | US_ITS ---
STUDY: ABDOMINAL ULTRASOUND - RIGHT UPPER QUADRANT REASON FOR VISIT: Female, 65 years old ELEVATED ENZYMES TECHNIQUE: Ultrasound evaluation of the right upper quadrant was performed with real-time and static soto-scale imaging. TECHNICAL QUALITY: Adequate. COMPARISON: None. FINDINGS: Liver: The liver is slightly enlarged and measures 18.8 cm. There is increased echogenicity consistent with fatty infiltration. The bile ducts are within normal limits. There is hepatic color flow. The direction of portal flow is hepatopetal. There is no demonstrated mass lesion. Gallbladder: Normal distended gallbladder. The gallbladder wall measures 3 mm. There is a negative sonographic Grover''s sign. There is no pericholecystic fluid. There are no gallstones. Common Bile Duct (C.B.D.): The common bile duct measures 4 mm. Pancreas: There is nonvisualization of the pancreas due to overlying bowel gas. Right Kidney: Normal size of the right kidney. The right kidney measures 11 cm x 5.1 cm x 4.8 cm. Normal renal cortex. The right cortex measures 1.5 cm. There is no demonstrated renal mass or cyst. There is no right hydronephrosis. US/Liver IMPRESSION: Mild hepatomegaly and fatty infiltration of the liver. Electronically Signed: Francesco Rodriguez MD at 9:52 EDT , Service support ,
== END ==
PROVIDERS: PCP Family Medicine; Referring Provider Internal Medicine Rheumatology; Visit Provider Internal Medicine Rheumatology
DX: M05.79 Rheumatoid arthritis with rheumatoid factor of multiple sites without organ or systems involvement (principal); M79.7 Fibromyalgia; M15.9 Polyosteoarthritis, unspecified; M21.40 Flat foot [pes planus] (acquired), unspecified foot; I10 Essential (primary) hypertension; E11.9 Type 2 diabetes mellitus without complications; E78.5 Hyperlipidemia, unspecified; L68.0 Hirsutism; F32.89 Other specified depressive episodes; Z79.899 Other long term (current) drug therapy
CPT/HCPCS: 76705

== ENCOUNTER → 2021-02-08 13:01 | Outpatient (CLI) | payer OTHER, SELFPAY ==
[2021-02-08 15:42] LABS: AST(SGOT) 26 U/L (15-37); Alanine Aminotransfer ALT/SGPT 56 U/L (13-56); Albumin, Serum 3.7 g/dL (3.2-5.0); Alkaline Phosphatase 67 U/L (45-117); Anion Gap 6 (5-15); BUN 17 mg/dL (7-18); BUN/Creat Ratio 17.2 RATIO (10-20); Calcium,Total 9.3 mg/dL (8.5-10.1); Chloride 104 mmol/L (98-107); Creatinine, Serum 0.99 mg/dL (0.55-1.02); EST Glomerular Filtration Rate 60 mL/min (>60); Est Glom Filt Rate - Afr Amer 73 mL/min (>60); Globulin 3.6 g/dL (2.2-4.2); Glucose 100 mg/dL (74-106); Protein, Total 7.3 g/dL (6.4-8.2); Sodium Level 140 mmol/L (136-145)
== END ==
PROVIDERS: PCP Family Medicine; Visit Provider Internal Medicine Rheumatology
DX: M05.79 Rheumatoid arthritis with rheumatoid factor of multiple sites without organ or systems involvement (principal); M79.7 Fibromyalgia; M15.9 Polyosteoarthritis, unspecified; M21.40 Flat foot [pes planus] (acquired), unspecified foot; I10 Essential (primary) hypertension; E11.9 Type 2 diabetes mellitus without complications; E78.5 Hyperlipidemia, unspecified; L68.0 Hirsutism; F32.89 Other specified depressive episodes; Z79.899 Other long term (current) drug therapy
CPT/HCPCS: 36415; 80053

== ENCOUNTER → 2021-03-17 14:10 | Outpatient (CLI) | payer OTHER, SELFPAY ==
[2021-03-17 14:58] LABS: Absolute Lymphocyte Count 2.01 X10^3/uL (0.83-4.51); Absolute Neutrophil Count 4.8 X10^3/uL (2.0-7.7); Basophil# 0.06 X10^3/uL; Basophil% 0.8 % (0-1); Eosinophil# 0.24 X10^3/uL; Eosinophils% 3.1 % (0-5); Hematocrit 42.5 % (37-47); Hemoglobin 13.7 g/dL (12.0-15.0); Lymphocyte # 2.01 X10^3/ul (0.83-4.51); Lymphocyte % 26.1 % (19-41); Mean Corp Hgb Conc 32.2 g/dL (32-36); Mean Corpuscular Hgb 30.3 pg (27.0-32.0); Mean Platelet Vol. 9.8 fl (6.2-12.0); Monocyte% 6.5 % (0-10); NRBC Flagged by Analyzer 0 % (0-5); Neutrophil # 4.81 X10^3/uL (2.7-7.7); Neutrophil % 62.3 % (47-70); Platelet Count 281 K/mm3 (150-450); RBC Distribution Width CV 12.8 % (11.6-14.6); RBC Distribution Width SD 43.1 fl (35.1-43.9); Red Blood Count 4.52 M/mm3 (4.2-5.4); White Blood Count 7.7 K/mm3 (4.4-11.0)
[2021-03-17 15:31] LABS: AST(SGOT) 26 U/L (15-37); Alanine Aminotransfer ALT/SGPT 54 U/L (13-56); Albumin, Serum 3.4 g/dL (3.2-5.0); Alkaline Phosphatase 66 U/L (45-117); Anion Gap 7 (5-15); BUN 16 mg/dL (7-18); BUN/Creat Ratio 18.5 RATIO (10-20); Calcium,Total 8.7 mg/dL (8.5-10.1); Chloride 106 mmol/L (98-107); Creatinine, Serum 0.87 mg/dL (0.55-1.02); EST Glomerular Filtration Rate 70 mL/min (>60); Est Glom Filt Rate - Afr Amer 85 mL/min (>60); Globulin 3.4 g/dL (2.2-4.2); Glucose 114 mg/dL (74-106); Potassium 3.9 mmol/L (3.5-5.1); Protein, Total 6.8 g/dL (6.4-8.2); Sodium Level 141 mmol/L (136-145)
== END ==
PROVIDERS: PCP Family Medicine; Visit Provider Internal Medicine Rheumatology
DX: M05.79 Rheumatoid arthritis with rheumatoid factor of multiple sites without organ or systems involvement (principal); M79.7 Fibromyalgia; M15.9 Polyosteoarthritis, unspecified; K76.0 Fatty (change of) liver, not elsewhere classified; Z79.899 Other long term (current) drug therapy
CPT/HCPCS: 36415; 80053; 85025

== ENCOUNTER 2021-05-14 19:20 | Emergency (ER) | payer OTHER, SELFPAY ==
[2021-05-14 19:21] VITALS: BP 110/64; PULSE 75; RESP 15; TEMP 35.9; O2SAT 97; BMI 22.8
--- NOTE | 2021-05-14 22:00 | RAD_ITS ---
STUDY: X-RAY - FACIAL BONES REASON FOR STUDY: Female, 65 years old. injury TECHNIQUE: 3 view(s) of the facial bones. COMPARISON: None. FINDINGS: Normal bilateral frontozygomatic and zygomatic-temporal arches. Normal bilateral medial and inferior orbital marie. Normal bilateral orbits. Normal visualized nasal bones. Normal anterior nasal spine. The remaining visualized osseous structures are normal. There is no demonstrated fracture. Normal visualized paranasal sinuses. RAD/Facial Bones min 3 Views IMPRESSION: Normal x-ray examination of the facial bones. Electronically Signed: Bin Ramirez MD at 22:46 EDT , Service support ,
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
[2021-05-14 23:24] VITALS: RESP 18
== END 2021-05-14 23:25 | disposition home or self-care (01) ==
PROVIDERS: Emergency Provider Emergency Medicine; PCP Family Medicine
DX: S00.83XA Contusion of other part of head, initial encounter (principal); E11.9 Type 2 diabetes mellitus without complications; M79.7 Fibromyalgia; I10 Essential (primary) hypertension; M06.9 Rheumatoid arthritis, unspecified; Z79.899 Other long term (current) drug therapy; Y04.2XXA Assault by strike against or bumped into by another person, initial encounter; Y93.89 Activity, other specified; Y92.199 Unspecified place in other specified residential institution as the place of occurrence of the external cause; Y99.0 Civilian activity done for income or pay
CPT/HCPCS: 70150; 99282

== ENCOUNTER 2021-05-28 11:49 | Outpatient (RCR) | payer OTHER, SELFPAY ==
[2021-05-28 15:17] LABS: Absolute Lymphocyte Count 2.53 X10^3/uL (0.83-4.51); Absolute Neutrophil Count 5.1 X10^3/uL (2.0-7.7); Basophil# 0.08 X10^3/uL; Basophil% 0.9 % (0-1); Eosinophils% 2.3 % (0-5); Hematocrit 44.1 % (37-47); Hemoglobin 14.2 g/dL (12.0-15.0); Lymphocyte # 2.53 X10^3/ul (0.83-4.51); Lymphocyte % 28.5 % (19-41); Mean Corp Hgb Conc 32.2 g/dL (32-36); Mean Corpuscular Hgb 30.9 pg (27.0-32.0); Mean Corpuscular Volume 96.1 fL (81-99); Mean Platelet Vol. 10.3 fl (6.2-12.0); Monocyte# 0.86 X10^3/uL; Monocyte% 9.7 % (0-10); NRBC Flagged by Analyzer 0 % (0-5); Neutrophil # 5.13 X10^3/uL (2.7-7.7); Neutrophil % 57.8 % (47-70); Platelet Count 273 K/mm3 (150-450); RBC Distribution Width CV 13.2 % (11.6-14.6); RBC Distribution Width SD 46.4 fl (35.1-43.9); Red Blood Count 4.59 M/mm3 (4.2-5.4); White Blood Count 8.9 K/mm3 (4.4-11.0)
[2021-05-28 15:50] LABS: ALB/GLOB Ratio 1.1 RATIO (0.9-2.4); AST(SGOT) 25 U/L (15-37); Alanine Aminotransfer ALT/SGPT 52 U/L (13-56); Albumin, Serum 3.8 g/dL (3.2-5.0); Alkaline Phosphatase 66 U/L (45-117); Anion Gap 8 (5-15); BUN 20 mg/dL (7-18); BUN/Creat Ratio 23.1 RATIO (10-20); Calcium,Total 9.5 mg/dL (8.5-10.1); Chloride 105 mmol/L (98-107); Creatinine, Serum 0.87 mg/dL (0.55-1.02); EST Glomerular Filtration Rate 70 mL/min (>60); Est Glom Filt Rate - Afr Amer 85 mL/min (>60); Globulin 3.6 g/dL (2.2-4.2); Glucose 83 mg/dL (74-106); Potassium 4.1 mmol/L (3.5-5.1); Protein, Total 7.4 g/dL (6.4-8.2); Sodium Level 138 mmol/L (136-145)
== END 2021-06-15 23:59 ==
LOC: BIMLAB 11:49
PROVIDERS: PCP Family Medicine; Referring Provider Internal Medicine Rheumatology; Visit Provider Internal Medicine Rheumatology
DX: M05.79 Rheumatoid arthritis with rheumatoid factor of multiple sites without organ or systems involvement (principal); M79.7 Fibromyalgia; M15.9 Polyosteoarthritis, unspecified; K76.0 Fatty (change of) liver, not elsewhere classified; M21.40 Flat foot [pes planus] (acquired), unspecified foot; I10 Essential (primary) hypertension; E11.9 Type 2 diabetes mellitus without complications; E78.5 Hyperlipidemia, unspecified; L68.0 Hirsutism; F32.89 Other specified depressive episodes; Z79.899 Other long term (current) drug therapy
CPT/HCPCS: 36415; 80053; 85025

== ENCOUNTER 2021-08-24 08:40 | Outpatient (RCR) | payer OTHER, SELFPAY ==
[2021-06-16 00:16] VITALS: BMI 22.8
[2021-08-24 12:10] LABS: Absolute Lymphocyte Count 1.36 X10^3/uL (0.83-4.51); Absolute Neutrophil Count 3.4 X10^3/uL (2.0-7.7); Basophil# 0.05 X10^3/uL; Basophil% 0.9 % (0-1); Eosinophil# 0.15 X10^3/uL; Eosinophils% 2.7 % (0-5); Hematocrit 42.6 % (37-47); Hemoglobin 13.7 g/dL (12.0-15.0); Lymphocyte # 1.36 X10^3/ul (0.83-4.51); Lymphocyte % 24.7 % (19-41); Mean Corp Hgb Conc 32.2 g/dL (32-36); Mean Corpuscular Hgb 31.1 pg (27.0-32.0); Mean Corpuscular Volume 96.6 fL (81-99); Monocyte# 0.49 X10^3/uL; Monocyte% 8.9 % (0-10); NRBC Flagged by Analyzer 0 % (0-5); Neutrophil # 3.41 X10^3/uL (2.7-7.7); Neutrophil % 62.1 % (47-70); Platelet Count 271 K/mm3 (150-450); RBC Distribution Width CV 12.7 % (11.6-14.6); RBC Distribution Width SD 45.1 fl (35.1-43.9); Red Blood Count 4.41 M/mm3 (4.2-5.4); White Blood Count 5.5 K/mm3 (4.4-11.0)
[2021-08-24 12:36] LABS: ALB/GLOB Ratio 0.9 RATIO (0.9-2.4); AST(SGOT) 27 U/L (15-37); Alanine Aminotransfer ALT/SGPT 49 U/L (13-56); Albumin, Serum 3.3 g/dL (3.2-5.0); Alkaline Phosphatase 74 U/L (45-117); Anion Gap 7 (5-15); BUN 18 mg/dL (7-18); BUN/Creat Ratio 20.6 RATIO (10-20); Calcium,Total 8.9 mg/dL (8.5-10.1); Chloride 106 mmol/L (98-107); Creatinine, Serum 0.87 mg/dL (0.55-1.02); EST Glomerular Filtration Rate 69 mL/min (>60); Est Glom Filt Rate - Afr Amer 84 mL/min (>60); Globulin 3.8 g/dL (2.2-4.2); Glucose 95 mg/dL (74-106); Potassium 4.3 mmol/L (3.5-5.1); Protein, Total 7.1 g/dL (6.4-8.2); Sodium Level 139 mmol/L (136-145)
== END 2021-09-14 23:59 ==
LOC: BIMLAB 08:40
PROVIDERS: PCP Family Medicine; Referring Provider Internal Medicine Rheumatology; Visit Provider Internal Medicine Rheumatology
DX: M05.79 Rheumatoid arthritis with rheumatoid factor of multiple sites without organ or systems involvement (principal); Z79.899 Other long term (current) drug therapy; M79.7 Fibromyalgia; M15.9 Polyosteoarthritis, unspecified; K76.0 Fatty (change of) liver, not elsewhere classified; M21.40 Flat foot [pes planus] (acquired), unspecified foot; I10 Essential (primary) hypertension; E11.9 Type 2 diabetes mellitus without complications; E78.5 Hyperlipidemia, unspecified; L68.0 Hirsutism; F32.89 Other specified depressive episodes
CPT/HCPCS: 36415; 80053; 85025

== ENCOUNTER 2021-11-16 13:20 | Outpatient (RCR) | payer OTHER, SELFPAY ==
[2021-09-15 00:04] VITALS: BMI 22.8
[2021-11-16 15:30] LABS: Absolute Lymphocyte Count 2.51 X10^3/uL (0.83-4.51); Absolute Neutrophil Count 3.6 X10^3/uL (2.0-7.7); Basophil# 0.09 X10^3/uL; Basophil% 1.2 % (0-1); Eosinophil# 0.21 X10^3/uL; Eosinophils% 2.9 % (0-5); Hematocrit 43.4 % (37-47); Hemoglobin 14.2 g/dL (12.0-15.0); Lymphocyte # 2.51 X10^3/ul (0.83-4.51); Lymphocyte % 34.5 % (19-41); Mean Corp Hgb Conc 32.7 g/dL (32-36); Mean Corpuscular Hgb 31.5 pg (27.0-32.0); Mean Corpuscular Volume 96.2 fL (81-99); Mean Platelet Vol. 10.3 fl (6.2-12.0); Monocyte# 0.76 X10^3/uL; Monocyte% 10.5 % (0-10); NRBC Flagged by Analyzer 0 % (0-5); Neutrophil # 3.63 X10^3/uL (2.7-7.7); Neutrophil % 49.9 % (47-70); Platelet Count 261 K/mm3 (150-450); RBC Distribution Width SD 45.1 fl (35.1-43.9); Red Blood Count 4.51 M/mm3 (4.2-5.4); White Blood Count 7.3 K/mm3 (4.4-11.0)
[2021-11-16 15:49] LABS: AST(SGOT) 30 U/L (15-37); Alanine Aminotransfer ALT/SGPT 57 U/L (13-56); Albumin, Serum 3.7 g/dL (3.2-5.0); Alkaline Phosphatase 69 U/L (45-117); Anion Gap 4 (5-15); BUN 17 mg/dL (7-18); BUN/Creat Ratio 21.4 RATIO (10-20); Calcium,Total 9.2 mg/dL (8.5-10.1); Chloride 104 mmol/L (98-107); Creatinine, Serum 0.79 mg/dL (0.55-1.02); EST Glomerular Filtration Rate 77 mL/min (>60); Est Glom Filt Rate - Afr Amer 93 mL/min (>60); Globulin 3.7 g/dL (2.2-4.2); Glucose 91 mg/dL (74-106); Potassium 4.2 mmol/L (3.5-5.1); Protein, Total 7.4 g/dL (6.4-8.2); Sodium Level 137 mmol/L (136-145)
== END 2021-12-13 23:59 ==
LOC: BIMLAB 13:20
PROVIDERS: PCP Family Medicine; Referring Provider Internal Medicine Rheumatology; Visit Provider Internal Medicine Rheumatology
DX: M05.79 Rheumatoid arthritis with rheumatoid factor of multiple sites without organ or systems involvement (principal); E11.9 Type 2 diabetes mellitus without complications; M79.7 Fibromyalgia; M17.0 Bilateral primary osteoarthritis of knee; K76.0 Fatty (change of) liver, not elsewhere classified; M21.40 Flat foot [pes planus] (acquired), unspecified foot; I10 Essential (primary) hypertension; E78.5 Hyperlipidemia, unspecified; L68.0 Hirsutism; F32.89 Other specified depressive episodes; Z79.899 Other long term (current) drug therapy
CPT/HCPCS: 36415; 80053; 85025

== ENCOUNTER 2022-02-15 13:51 | Outpatient (RCR) | payer OTHER, SELFPAY ==
[2021-12-14 00:08] VITALS: BMI 22.8
[2022-02-15 15:06] LABS: Absolute Lymphocyte Count 2.15 X10^3/uL (0.83-4.51); Absolute Neutrophil Count 3.5 X10^3/uL (2.0-7.7); Basophil# 0.07 X10^3/uL; Eosinophil# 0.23 X10^3/uL; Eosinophils% 3.4 % (0-5); Hematocrit 43.8 % (37-47); Hemoglobin 14.2 g/dL (12.0-15.0); Lymphocyte # 2.15 X10^3/ul (0.83-4.51); Lymphocyte % 31.5 % (19-41); Mean Corp Hgb Conc 32.4 g/dL (32-36); Mean Corpuscular Hgb 31.3 pg (27.0-32.0); Mean Corpuscular Volume 96.7 fL (81-99); Monocyte% 11.7 % (0-10); NRBC Flagged by Analyzer 0 % (0-5); Neutrophil # 3.52 X10^3/uL (2.7-7.7); Neutrophil % 51.5 % (47-70); Platelet Count 247 K/mm3 (150-450); RBC Distribution Width CV 13.1 % (11.6-14.6); RBC Distribution Width SD 46.2 fl (35.1-43.9); Red Blood Count 4.53 M/mm3 (4.2-5.4); White Blood Count 6.8 K/mm3 (4.4-11.0)
[2022-02-15 15:19] LABS: ALB/GLOB Ratio 1.1 RATIO (0.9-2.4); AST(SGOT) 31 U/L (15-37); Alanine Aminotransfer ALT/SGPT 65 U/L (13-56); Albumin, Serum 3.7 g/dL (3.2-5.0); Alkaline Phosphatase 59 U/L (45-117); Anion Gap 8 (5-15); BUN 15 mg/dL (7-18); BUN/Creat Ratio 17.2 RATIO (10-20); Calcium,Total 9.1 mg/dL (8.5-10.1); Chloride 101 mmol/L (98-107); Creatinine, Serum 0.87 mg/dL (0.55-1.02); EST Glomerular Filtration Rate 69 mL/min (>60); Est Glom Filt Rate - Afr Amer 84 mL/min (>60); Globulin 3.4 g/dL (2.2-4.2); Glucose 104 mg/dL (74-106); Potassium 4.1 mmol/L (3.5-5.1); Protein, Total 7.1 g/dL (6.4-8.2); Sodium Level 137 mmol/L (136-145)
== END 2022-03-15 23:59 ==
LOC: BIMLAB 13:51
PROVIDERS: PCP Family Medicine; Referring Provider Internal Medicine Rheumatology; Visit Provider Internal Medicine Rheumatology
DX: M05.79 Rheumatoid arthritis with rheumatoid factor of multiple sites without organ or systems involvement (principal); M79.7 Fibromyalgia; K76.0 Fatty (change of) liver, not elsewhere classified; M21.40 Flat foot [pes planus] (acquired), unspecified foot; I10 Essential (primary) hypertension; E11.9 Type 2 diabetes mellitus without complications; E78.5 Hyperlipidemia, unspecified; L68.0 Hirsutism; F32.89 Other specified depressive episodes; Z79.899 Other long term (current) drug therapy; M17.0 Bilateral primary osteoarthritis of knee
CPT/HCPCS: 36415; 80053; 85025

== ENCOUNTER → 2022-03-17 | Outpatient (CLI) | payer OTHER, SELFPAY ==
[2022-03-17 12:52] LABS: AST(SGOT) 33 U/L (15-37); Alanine Aminotransfer ALT/SGPT 55 U/L (13-56); Albumin, Serum 3.6 g/dL (3.2-5.0); Alkaline Phosphatase 57 U/L (45-117); Anion Gap 3 (5-15); BUN 19 mg/dL (7-18); BUN/Creat Ratio 21.6 RATIO (10-20); Calcium,Total 9.3 mg/dL (8.5-10.1); Chloride 107 mmol/L (98-107); Creatinine, Serum 0.88 mg/dL (0.55-1.02); EST Glomerular Filtration Rate 69 mL/min (>60); Est Glom Filt Rate - Afr Amer 83 mL/min (>60); Globulin 3.5 g/dL (2.2-4.2); Glucose 109 mg/dL (74-106); Potassium 4.2 mmol/L (3.5-5.1); Protein, Total 7.1 g/dL (6.4-8.2); Sodium Level 139 mmol/L (136-145)
== END | disposition home or self-care (01) ==
LOC: BIMLAB 10:32
PROVIDERS: PCP Family Medicine; Referring Provider Internal Medicine Rheumatology; Visit Provider Internal Medicine Rheumatology
DX: M05.79 Rheumatoid arthritis with rheumatoid factor of multiple sites without organ or systems involvement (principal); E11.9 Type 2 diabetes mellitus without complications; M17.0 Bilateral primary osteoarthritis of knee; K76.0 Fatty (change of) liver, not elsewhere classified; E78.5 Hyperlipidemia, unspecified; Z79.899 Other long term (current) drug therapy
CPT/HCPCS: 36415; 80053

== ENCOUNTER → 2022-05-25 | Outpatient (CLI) | payer OTHER, SELFPAY ==
[2022-05-25 17:41] LABS: Absolute Lymphocyte Count 3.58 X10^3/uL (0.83-4.51); Absolute Neutrophil Count 6.6 X10^3/uL (2.0-7.7); Basophil% 0.8 % (0-1); Eosinophil# 0.19 X10^3/uL; Eosinophils% 1.6 % (0-5); Hematocrit 45.1 % (37-47); Hemoglobin 14.8 g/dL (12.0-15.0); Lymphocyte # 3.58 X10^3/ul (0.83-4.51); Lymphocyte % 30.4 % (19-41); Mean Corp Hgb Conc 32.8 g/dL (32-36); Mean Corpuscular Hgb 31.4 pg (27.0-32.0); Mean Corpuscular Volume 95.8 fL (81-99); Mean Platelet Vol. 10.2 fl (6.2-12.0); Monocyte# 1.14 X10^3/uL; Monocyte% 9.7 % (0-10); NRBC Flagged by Analyzer 0 % (0-5); Neutrophil # 6.63 X10^3/uL (2.7-7.7); Neutrophil % 56.4 % (47-70); Platelet Count 305 K/mm3 (150-450); RBC Distribution Width CV 13.1 % (11.6-14.6); RBC Distribution Width SD 45.5 fl (35.1-43.9); Red Blood Count 4.71 M/mm3 (4.2-5.4); White Blood Count 11.8 K/mm3 (4.4-11.0)
[2022-05-25 17:59] LABS: AST(SGOT) 26 U/L (15-37); Alanine Aminotransfer ALT/SGPT 58 U/L (13-56); Albumin, Serum 3.6 g/dL (3.2-5.0); Alkaline Phosphatase 61 U/L (45-117); Anion Gap 6 (5-15); BUN 26 mg/dL (7-18); BUN/Creat Ratio 26.9 RATIO (10-20); Calcium,Total 8.9 mg/dL (8.5-10.1); Chloride 103 mmol/L (98-107); Creatinine, Serum 0.97 mg/dL (0.55-1.02); EST Glomerular Filtration Rate 61 mL/min (>60); Est Glom Filt Rate - Afr Amer 74 mL/min (>60); Globulin 3.7 g/dL (2.2-4.2); Glucose 96 mg/dL (74-106); Protein, Total 7.3 g/dL (6.4-8.2); Sodium Level 138 mmol/L (136-145)
== END | disposition home or self-care (01) ==
LOC: MTLAB 16:24
PROVIDERS: PCP Family Medicine; Referring Provider Internal Medicine Rheumatology; Visit Provider Internal Medicine Rheumatology
DX: M05.70 Rheumatoid arthritis with rheumatoid factor of unspecified site without organ or systems involvement (principal); E11.9 Type 2 diabetes mellitus without complications; M79.7 Fibromyalgia; M15.9 Polyosteoarthritis, unspecified; K76.0 Fatty (change of) liver, not elsewhere classified; I10 Essential (primary) hypertension; E78.5 Hyperlipidemia, unspecified; Z79.899 Other long term (current) drug therapy
CPT/HCPCS: 36415; 80053; 85025

== ENCOUNTER → 2022-09-23 | Outpatient (CLI) | payer OTHER, SELFPAY ==
[2022-09-23 15:13] LABS: Basophil# 0.09 X10^3/uL; Basophil% 0.8 % (0-1); Eosinophil# 0.17 X10^3/uL; Eosinophils% 1.6 % (0-5); Hemoglobin 14.2 g/dL (12.0-15.0); Lymphocyte % 27.4 % (19-41); Mean Corp Hgb Conc 31.6 g/dL (32-36); Mean Corpuscular Hgb 30.9 pg (27.0-32.0); Mean Corpuscular Volume 97.8 fL (81-99); Mean Platelet Vol. 10.1 fl (6.2-12.0); Monocyte# 0.65 X10^3/uL; Monocyte% 5.9 % (0-10); NRBC Flagged by Analyzer 0 % (0-5); Neutrophil # 6.96 X10^3/uL (2.7-7.7); Neutrophil % 63.6 % (47-70); Platelet Count 280 K/mm3 (150-450); RBC Distribution Width CV 13.1 % (11.6-14.6); RBC Distribution Width SD 46.4 fl (35.1-43.9)
[2022-09-23 15:55] LABS: ALB/GLOB Ratio 1.2 RATIO (0.9-2.4); AST(SGOT) 19 U/L (15-37); Alanine Aminotransfer ALT/SGPT 45 U/L (13-56); Albumin, Serum 3.6 g/dL (3.2-5.0); Alkaline Phosphatase 64 U/L (45-117); Anion Gap 9 (5-15); BUN 21 mg/dL (7-18); BUN/Creat Ratio 22.4 RATIO (10-20); Calcium,Total 9.2 mg/dL (8.5-10.1); Chloride 104 mmol/L (98-107); Creatinine, Serum 0.94 mg/dL (0.55-1.02); EST Glomerular Filtration Rate 64 mL/min (>60); Est Glom Filt Rate - Afr Amer 77 mL/min (>60); Globulin 3.1 g/dL (2.2-4.2); Glucose 158 mg/dL (74-106); Potassium 3.9 mmol/L (3.5-5.1); Protein, Total 6.7 g/dL (6.4-8.2); Sodium Level 141 mmol/L (136-145)
== END | disposition home or self-care (01) ==
LOC: BIMLAB 13:40
PROVIDERS: PCP Family Medicine; Visit Provider Internal Medicine Rheumatology
DX: M05.70 Rheumatoid arthritis with rheumatoid factor of unspecified site without organ or systems involvement (principal); Z79.899 Other long term (current) drug therapy
CPT/HCPCS: 36415; 80053; 85025

== ENCOUNTER → 2022-11-07 | Outpatient (CLI) | payer OTHER, SELFPAY ==
[2022-11-07 12:17] LABS: Absolute Lymphocyte Count 1.96 X10^3/uL (0.83-4.51); Basophil# 0.06 X10^3/uL; Basophil% 0.6 % (0-1); Eosinophil# 0.07 X10^3/uL; Eosinophils% 0.7 % (0-5); Hematocrit 44.1 % (37-47); Hemoglobin 14.2 g/dL (12.0-15.0); Lymphocyte # 1.96 X10^3/ul (0.83-4.51); Lymphocyte % 19.8 % (19-41); Mean Corp Hgb Conc 32.2 g/dL (32-36); Mean Corpuscular Hgb 30.9 pg (27.0-32.0); Mean Corpuscular Volume 96.1 fL (81-99); Mean Platelet Vol. 10.4 fl (6.2-12.0); Monocyte# 0.67 X10^3/uL; Monocyte% 6.8 % (0-10); NRBC Flagged by Analyzer 0 % (0-5); Neutrophil # 7.04 X10^3/uL (2.7-7.7); Platelet Count 271 K/mm3 (150-450); RBC Distribution Width CV 13.1 % (11.6-14.6); RBC Distribution Width SD 45.3 fl (35.1-43.9); Red Blood Count 4.59 M/mm3 (4.2-5.4); White Blood Count 9.9 K/mm3 (4.4-11.0)
[2022-11-07 12:37] LABS: AST(SGOT) 22 U/L (15-37); Alanine Aminotransfer ALT/SGPT 44 U/L (13-56); Albumin, Serum 3.6 g/dL (3.2-5.0); Alkaline Phosphatase 58 U/L (45-117); Anion Gap 7 (5-15); BUN 19 mg/dL (7-18); BUN/Creat Ratio 21.2 RATIO (10-20); Calcium,Total 8.8 mg/dL (8.5-10.1); Chloride 110 mmol/L (98-107); EST Glomerular Filtration Rate 67 mL/min (>60); Est Glom Filt Rate - Afr Amer 81 mL/min (>60); Globulin 3.5 g/dL (2.2-4.2); Glucose 91 mg/dL (74-106); Potassium 4.1 mmol/L (3.5-5.1); Protein, Total 7.1 g/dL (6.4-8.2); Sodium Level 141 mmol/L (136-145)
== END | disposition home or self-care (01) ==
LOC: BIMLAB 09:19
PROVIDERS: PCP Family Medicine; Referring Provider Internal Medicine Rheumatology; Visit Provider Internal Medicine Rheumatology
DX: M05.70 Rheumatoid arthritis with rheumatoid factor of unspecified site without organ or systems involvement (principal); E11.9 Type 2 diabetes mellitus without complications; M79.7 Fibromyalgia; M17.0 Bilateral primary osteoarthritis of knee; K76.0 Fatty (change of) liver, not elsewhere classified; M21.40 Flat foot [pes planus] (acquired), unspecified foot; I10 Essential (primary) hypertension; E78.5 Hyperlipidemia, unspecified; L68.0 Hirsutism; F32.89 Other specified depressive episodes; Z79.899 Other long term (current) drug therapy
CPT/HCPCS: 36415; 80053; 85025

== ENCOUNTER → 2023-01-30 | Outpatient (CLI) | payer OTHER, SELFPAY ==
[2023-01-30 12:16] LABS: Absolute Lymphocyte Count 2.68 X10^3/uL (0.83-4.51); Absolute Neutrophil Count 8.3 X10^3/uL (2.0-7.7); Basophil# 0.07 X10^3/uL; Basophil% 0.6 % (0-1); Eosinophils% 0.8 % (0-5); Hematocrit 44.6 % (37-47); Hemoglobin 14.3 g/dL (12.0-15.0); Lymphocyte # 2.68 X10^3/ul (0.83-4.51); Lymphocyte % 21.8 % (19-41); Mean Corp Hgb Conc 32.1 g/dL (32-36); Mean Corpuscular Hgb 31.2 pg (27.0-32.0); Mean Corpuscular Volume 97.4 fL (81-99); Mean Platelet Vol. 10.1 fl (6.2-12.0); Monocyte% 8.1 % (0-10); NRBC Flagged by Analyzer 0 % (0-5); Neutrophil # 8.34 X10^3/uL (2.7-7.7); Platelet Count 246 K/mm3 (150-450); RBC Distribution Width SD 45.6 fl (35.1-43.9); Red Blood Count 4.58 M/mm3 (4.2-5.4); White Blood Count 12.3 K/mm3 (4.4-11.0)
[2023-01-30 12:53] LABS: AST(SGOT) 24 U/L (15-37); Alanine Aminotransfer ALT/SGPT 42 U/L (13-56); Albumin, Serum 3.5 g/dL (3.2-5.0); Alkaline Phosphatase 62 U/L (45-117); Anion Gap 5 (5-15); BUN 16 mg/dL (7-18); Calcium,Total 8.8 mg/dL (8.5-10.1); Chloride 106 mmol/L (98-107); Creatinine, Serum 0.84 mg/dL (0.55-1.02); EST Glomerular Filtration Rate 72 mL/min (>60); Est Glom Filt Rate - Afr Amer 87 mL/min (>60); Globulin 3.5 g/dL (2.2-4.2); Glucose 104 mg/dL (74-106); Potassium 3.8 mmol/L (3.5-5.1); Sodium Level 137 mmol/L (136-145)
== END | disposition home or self-care (01) ==
LOC: BIMLAB 09:15
PROVIDERS: PCP Family Medicine; Visit Provider Internal Medicine Rheumatology
DX: M05.70 Rheumatoid arthritis with rheumatoid factor of unspecified site without organ or systems involvement (principal); E11.9 Type 2 diabetes mellitus without complications; M79.7 Fibromyalgia; M17.0 Bilateral primary osteoarthritis of knee; K76.0 Fatty (change of) liver, not elsewhere classified; M21.40 Flat foot [pes planus] (acquired), unspecified foot; I10 Essential (primary) hypertension; E78.5 Hyperlipidemia, unspecified; L68.0 Hirsutism; F32.89 Other specified depressive episodes; Z79.899 Other long term (current) drug therapy
CPT/HCPCS: 36415; 80053; 85025

== ENCOUNTER → 2023-04-17 | Outpatient (CLI) | payer OTHER, SELFPAY ==
[2023-04-17 15:13] LABS: Absolute Lymphocyte Count 1.95 X10^3/uL (0.83-4.51); Absolute Neutrophil Count 5.7 X10^3/uL (2.0-7.7); Basophil# 0.08 X10^3/uL; Basophil% 0.9 % (0-1); Eosinophils% 5.4 % (0-5); Hematocrit 45.7 % (37-47); Hemoglobin 14.5 g/dL (12.0-15.0); Lymphocyte # 1.95 X10^3/ul (0.83-4.51); Lymphocyte % 21.2 % (19-41); Mean Corp Hgb Conc 31.7 g/dL (32-36); Mean Corpuscular Hgb 31.4 pg (27.0-32.0); Mean Corpuscular Volume 98.9 fL (81-99); Mean Platelet Vol. 10.3 fl (6.2-12.0); Monocyte# 0.91 X10^3/uL; Monocyte% 9.9 % (0-10); NRBC Flagged by Analyzer 0 % (0-5); Neutrophil % 61.8 % (47-70); Platelet Count 231 K/mm3 (150-450); RBC Distribution Width CV 13.2 % (11.6-14.6); RBC Distribution Width SD 47.1 fl (35.1-43.9); Red Blood Count 4.62 M/mm3 (4.2-5.4); White Blood Count 9.2 K/mm3 (4.4-11.0)
[2023-04-17 16:19] LABS: AST(SGOT) 26 U/L (15-37); Alanine Aminotransfer ALT/SGPT 49 U/L (13-56); Albumin, Serum 3.7 g/dL (3.2-5.0); Alkaline Phosphatase 64 U/L (45-117); Anion Gap 6 (5-15); BUN 19 mg/dL (7-18); BUN/Creat Ratio 19.5 RATIO (10-20); Calcium,Total 9.5 mg/dL (8.5-10.1); Chloride 106 mmol/L (98-107); Creatinine, Serum 0.98 mg/dL (0.55-1.02); EST Glomerular Filtration Rate 61 mL/min (>60); Est Glom Filt Rate - Afr Amer 73 mL/min (>60); Globulin 3.7 g/dL (2.2-4.2); Glucose 104 mg/dL (74-106); Potassium 4.3 mmol/L (3.5-5.1); Protein, Total 7.4 g/dL (6.4-8.2); Sodium Level 137 mmol/L (136-145)
== END | disposition home or self-care (01) ==
LOC: BIMLAB 13:13
PROVIDERS: PCP Family Medicine; Referring Provider Internal Medicine Rheumatology; Visit Provider Internal Medicine Rheumatology
DX: M05.70 Rheumatoid arthritis with rheumatoid factor of unspecified site without organ or systems involvement (principal); Z79.899 Other long term (current) drug therapy
CPT/HCPCS: 36415; 80053; 85025

== ENCOUNTER → 2023-07-17 | Outpatient (CLI) | payer OTHER, SELFPAY ==
[2023-07-17 17:39] LABS: Absolute Lymphocyte Count 2.42 X10^3/uL (0.83-4.51); Absolute Neutrophil Count 4.5 X10^3/uL (2.0-7.7); Basophil# 0.08 X10^3/uL; Eosinophil# 0.34 X10^3/uL; Eosinophils% 4.2 % (0-5); Hematocrit 41.9 % (37-47); Hemoglobin 13.5 g/dL (12.0-15.0); Lymphocyte # 2.42 X10^3/ul (0.83-4.51); Lymphocyte % 29.7 % (19-41); Mean Corp Hgb Conc 32.2 g/dL (32-36); Mean Corpuscular Hgb 31.2 pg (27.0-32.0); Mean Corpuscular Volume 96.8 fL (81-99); Mean Platelet Vol. 10.1 fl (6.2-12.0); Monocyte# 0.74 X10^3/uL; Monocyte% 9.1 % (0-10); NRBC Flagged by Analyzer 0 % (0-5); Neutrophil % 55.1 % (47-70); Platelet Count 230 K/mm3 (150-450); RBC Distribution Width CV 12.7 % (11.6-14.6); RBC Distribution Width SD 44.7 fl (35.1-43.9); Red Blood Count 4.33 M/mm3 (4.2-5.4); White Blood Count 8.2 K/mm3 (4.4-11.0)
[2023-07-17 18:25] LABS: ALB/GLOB Ratio 1.1 RATIO (0.9-2.4); AST(SGOT) 31 U/L (15-37); Alanine Aminotransfer ALT/SGPT 49 U/L (13-56); Albumin, Serum 3.6 g/dL (3.2-5.0); Alkaline Phosphatase 62 U/L (45-117); Anion Gap 8 (5-15); BUN 15 mg/dL (7-18); BUN/Creat Ratio 17.6 RATIO (10-20); Calcium,Total 8.7 mg/dL (8.5-10.1); Chloride 107 mmol/L (98-107); Creatinine, Serum 0.85 mg/dL (0.55-1.02); EST Glomerular Filtration Rate 71 mL/min (>60); Est Glom Filt Rate - Afr Amer 86 mL/min (>60); Globulin 3.2 g/dL (2.2-4.2); Glucose 100 mg/dL (74-106); Potassium 3.9 mmol/L (3.5-5.1); Protein, Total 6.8 g/dL (6.4-8.2); Sodium Level 139 mmol/L (136-145)
== END | disposition home or self-care (01) ==
LOC: MTLAB 16:14
PROVIDERS: PCP Family Medicine; Referring Provider Internal Medicine Rheumatology; Visit Provider Internal Medicine Rheumatology
DX: M05.70 Rheumatoid arthritis with rheumatoid factor of unspecified site without organ or systems involvement (principal); E11.9 Type 2 diabetes mellitus without complications; M79.7 Fibromyalgia; M17.0 Bilateral primary osteoarthritis of knee; M21.40 Flat foot [pes planus] (acquired), unspecified foot; K76.0 Fatty (change of) liver, not elsewhere classified; I10 Essential (primary) hypertension; E78.5 Hyperlipidemia, unspecified; Z79.899 Other long term (current) drug therapy
CPT/HCPCS: 36415; 80053; 85025

== ENCOUNTER 2023-07-31 16:48 | Emergency (ER) | payer OTHER, SELFPAY ==
[2023-07-31 16:49] VITALS: BP 141/94; PULSE 104; RESP 16; TEMP 36.2; O2SAT 98; BMI 41.7
--- NOTE | 2023-07-31 17:32 | CT_ITS ---
STUDY: CT ABDOMEN AND PELVIS WITH CONTRAST REASON FOR EXAM: Female, 67 years old. llq abdominal pain RADIATION DOSAGE (If Supplied By Facility): CTDIvol = ( 17.04 ) mGy, DLP = ( 1330.41 ) mGycm TECHNIQUE: Transaxial images were obtained from the dome of the diaphragm to the symphysis pubis without oral contrast. IV 100mL Isovue-300 was administered. Sagittal and coronal images were reconstructed. Individualized dose optimization techniques were used for this CT. COMPARISON: None. FINDINGS: The visualized lung bases are unremarkable. The visualized portions of the heart are within normal limits. 2 cm lesion with peripheral globular enhancement in the posterior segment right lobe of liver likely consistent with a hemangioma. Correlation with liver mass protocol CT or MRI is recommended. Normal gallbladder and extrahepatic biliary system. Normal spleen. Normal pancreas. Normal bilateral adrenal glands. Normal right kidney. 3 mm nonobstructing stone in the anterior cortex of the midsection left kidney. There is a small hiatal hernia. Normal small intestine. There is diverticulosis, with thickening of the colon wall, and pericolonic inflammation changes consistent with acute diverticulitis. No loculated fluid collection to suggest abscess. No pneumoperitoneum to suggest perforation. The appendix is visualized and appears normal. Normal abdominal aorta. Normal inferior vena cava. Normal retroperitoneum. Normal urinary bladder. Normal abdominal wall. There are diffuse degenerative changes of the visualized lumbar spine. CT/Abdomen/Pelvis W IV Cont ONLY IMPRESSION: Diverticulitis of the descending colon without abscess or perforation. Suspect hemangiomas the posterior segment right lobe of the liver and correlation with liver mass protocol CT or MRI is recommended. Small hiatal hernia. Electronically Signed: Henry Villagran MD at 19:23 EDT ,
[2023-07-31 17:45] LABS: Absolute Lymphocyte Count 2.38 X10^3/uL (0.83-4.51); Absolute Neutrophil Count 11.1 X10^3/uL (2.0-7.7); Basophil% 0.6 % (0-1); Eosinophil# 0.27 X10^3/uL; Eosinophils% 1.7 % (0-5); Hematocrit 43.4 % (37-47); Lymphocyte # 2.38 X10^3/ul (0.83-4.51); Lymphocyte % 15.3 % (19-41); Mean Corp Hgb Conc 32.3 g/dL (32-36); Mean Corpuscular Hgb 30.8 pg (27.0-32.0); Mean Corpuscular Volume 95.4 fL (81-99); Mean Platelet Vol. 10.1 fl (6.2-12.0); Monocyte# 1.49 X10^3/uL; Monocyte% 9.6 % (0-10); NRBC Flagged by Analyzer 0 % (0-5); Neutrophil # 11.09 X10^3/uL (2.7-7.7); Neutrophil % 71.6 % (47-70); Platelet Count 272 K/mm3 (150-450); RBC Distribution Width CV 13.2 % (11.6-14.6); RBC Distribution Width SD 45.7 fl (35.1-43.9); Red Blood Count 4.55 M/mm3 (4.2-5.4); White Blood Count 15.5 K/mm3 (4.4-11.0)
[2023-07-31 18:12] LABS: ALB/GLOB Ratio 0.9 RATIO (0.9-2.4); AST(SGOT) 25 U/L (15-37); Alanine Aminotransfer ALT/SGPT 35 U/L (13-56); Albumin, Serum 3.5 g/dL (3.2-5.0); Alkaline Phosphatase 64 U/L (45-117); Anion Gap 8 (5-15); BUN 14 mg/dL (7-18); BUN/Creat Ratio 15.2 RATIO (10-20); Calcium,Total 9.3 mg/dL (8.5-10.1); Chloride 101 mmol/L (98-107); Creatinine, Serum 0.92 mg/dL (0.55-1.02); EST Glomerular Filtration Rate 65 mL/min (>60); Est Glom Filt Rate - Afr Amer 78 mL/min (>60); Estimated Creatinine Clearance 47.57 ml/min; Globulin 3.8 g/dL (2.2-4.2); Glucose 102 mg/dL (74-106); Lipase 28 U/L (13-75); Potassium 4.5 mmol/L (3.5-5.1); Protein, Total 7.3 g/dL (6.4-8.2); Sodium Level 135 mmol/L (136-145)
[2023-07-31 19:02] LABS: Bacteria 0 SEEN /hpf (None Seen); Mucous, Urine 0 SEEN /hpf (<or=2+); Squamous Epithelial Cells - UA 0 SEEN /hpf (5-10)
[2023-07-31 19:09] LABS: Color, Urine Yellow (Yellow); Glucose, Dipstick Normal (Normal); Ketone-Dipstick Negative (Negative); Leukocyte Esterase-Dipstick 100 /ul (Negative); Nitrite-Dipstick Negative (Negative); Occult Blood-Urine 10 /ul (Negative); Protein-Dipstick 15 mg/dl (Negative); Specific Gravity, Urine 1.005 (1.002-1.030); Urine Bilirubin Dipstick Negative (Negative); Urine Clarity Clear (Clear); Urine Urobilinogen Normal (Normal)
[2023-07-31 19:17] LABS: Red Blood Cells-Urine 0-5 SEEN /hpf (0-5); White Blood Cells 0-5 SEEN /hpf (0-5)
--- NOTE | 2023-07-31 19:53 | ED.VIS.GI ---
HPI HPI - GI History of Present Illness Chief Complaint: Abd Pain Narrative Narrative: 67-year-old female presenting with abdominal pain. She states she initially thought it was suprapubic however when she went to the urgent care today they noted she had some tenderness in the left lower quadrant. Patient does state that she is a history of diverticulosis and diverticulitis. She had a previous colonoscopy which showed this. She denies fevers or chills. She states the pain is not severe and does not want anything for pain. She does not have any urinary or vaginal complaints. No constipation or diarrhea. PFSH PFS Medical History Diabetes mellitus, type II Fibromyalgia Hypertension Rheumatoid arthritis Home Medications aspirin 81 mg tablet,delayed release (Adult Low Dose Aspirin) 81 mg PO DAILY 03/30/18 [History Last Taken Unknown] atorvastatin 20 mg tablet 20 mg PO QHS 03/30/18 [History Last Taken Unknown] lisinopril 10 mg tablet 10 mg PO DAILY 03/30/18 [History Last Taken Unknown] spironolactone 25 mg tablet 25 mg PO DAILY 03/30/18 [History Last Taken Unknown] ascorbic acid (vitamin C) 1,000 mg tablet (Vitamin C) 1,000 mg PO DAILY 06/05/18 [History Last Taken Unknown] multivitamin with folic acid 400 mcg tablet (Thera) 1 tab PO DAILY 06/05/18 [History Last Taken Unknown] tramadol 50 mg tablet 50 mg PO Q4H PRN PRN Pain 2 days #10 tabs 06/05/18 [Rx Last Taken Unknown] Vitamin D3 05/14/21 [History Last Taken Unknown] hydroxychloroquine 200 mg tablet 200 mg PO DAILY 05/14/21 [History Last Taken Unknown] prednisone 2.5 mg tablet 2.5 mg PO DAILY 05/14/21 [History Last Taken Unknown] Allergy/AdvReac Type Severity Reaction Status Date / Time diflunisal [From [place]] Allergy Rash Verified 07/31/23 16:49 Social History household members: family Smoking Status: Never smoker ROS ROS ED Constitutional Constitutional ED: Denies chills, fever(s) or sweats Eyes Eyes: Denies blurry vision or change in vision ENT ENT ED: Denies ear pain or sore throat Cardiovascular Cardiovascular: Denies chest pain, palpitations or racing heartbeat Respiratory/Chest Respiratory/Chest: Denies cough, dyspnea or sputum Gastrointestinal Gastrointestinal: Reports abdominal pain; Denies constipation, diarrhea, nausea or vomiting Genitourinary Genitourinary ED: Denies dysuria, hematuria or urinary frequency Musculoskeletal Musculoskeletal: Denies arthralgias, myalgias or neck pain Integumentary Denies abscess, Abrasions or rash Neurologic Neurologic: Denies headache(s), paresthesias or weakness Psychiatric Psychiatric: Denies anxiety, depression, suicidal ideation or suicidal thoughts Endocrine Endocrinology: Denies polydipsia or polyuria EXAM Physical Exam Const Vital Signs: 07/31/23 16:49 Temperature 97.2 F L Temperature Source Temporal Pulse Rate 104 H Respiratory Rate 16 Blood Pressure 141/94 H Blood Pressure Mean 109 Pulse Ox 98 Oxygen Delivery Method Room Air Positive well nourished General Appearance ED: NAD HEENT Reports moist mucous membranes normocephalic and atraumatic Eyes PERRL Resp normal respiratory effort Cardio regular rate and regular rhythm GI Palpation: tender LLQ Back/Spine no CVA tenderness Neuro CN's II-XII intact bilaterally and moves all extremities Sensorium / Orientation: alert Motor Exam: strength 5/5 throughout Psych mental status grossly normal and thought process normal Skin no wounds General Skin Exam: Negative for jaundice MDM MDM MDM Narrative Medical decision making narrative: Patient presenting with left lower quadrant abdominal pain. Differential includes UTI, pyelonephritis, diverticulitis, colitis, constipation, kidney stone, pancreatitis. CBC was obtained to assess white blood cell count, hemoglobin, platelets. MP to assess liver function, renal function, electrolytes, glucose. Lipase to assess for pancreatitis. Urinalysis to assess for UTI. Analgesia. White blood cell count back at 15.5. Platelets normal at 272. Hemoglobin normal at 14. LFTs and renal function are all within normal limits. Urinalysis negative for infection. CT of the abdomen pelvis IV contrast shows acute sigmoid diverticulitis without abscess or perforation to suggest that it is complex. Patient be started on the first dose of Augmentin here. She is given Augmentin for home. She is given return precautions. Impression: 1. Leukocytosis 2. Acute uncomplicated sigmoid diverticulitis Lab Data Attestation: I reviewed the patient's lab results. Labs: Laboratory Results - last 24 hr 07/31/23 07/31/23 17:39 18:55 WBC 15.5 H RBC 4.55 Hgb 14.0 Hct 43.4 MCV 95.4 MCH 30.8 MCHC 32.3 RDW Std Deviation 45.7 H RDW Coeff of Ramo 13.2 Plt Count 272 MPV 10.1 Immature Gran % (Auto) 1.200 H Neut % (Auto) 71.6 H Lymph % (Auto) 15.3 L [place] % (Auto) 9.6 Eos % (Auto) 1.7 Baso % (Auto) 0.6 Absolute Neuts (auto) 11.1 H Absolute Lymphs (auto) 2.38 Nucleated RBC % 0 Sodium 135 L Potassium 4.5 Chloride 101 Carbon Dioxide 26.0 Anion Gap 8 BUN 14 Creatinine 0.92 Estim Creat Clear Calc 47.57 Est GFR (MDRD) Af Amer 78 Est GFR (MDRD) Non-Af 65 BUN/Creatinine Ratio 15.2 Glucose 102 Calcium 9.3 Total Bilirubin 1.00 AST 25 ALT 35 Alkaline Phosphatase 64 Total Protein 7.3 Albumin 3.5 Globulin 3.8 Albumin/Globulin Ratio 0.9 Lipase 28 Urine Color Yellow Urine Clarity Clear Urine pH 7.0 Ur Specific [place] 1.005 Urine Protein 15 H Urine Glucose (UA) Normal Urine Ketones Negative Urine Occult Blood 10 H Urine Nitrite Negative Urine Bilirubin Negative Urine Urobilinogen Normal Ur Leukocyte Esterase 100 H Urine RBC 0-5 SEEN Urine WBC 0-5 SEEN Ur Squamous Epith Cells 0 SEEN Urine Bacteria 0 SEEN Urine Mucus 0 SEEN Radiography Diagnostic Testing: Clinical Impression(s) from Imaging Studies Abdomen/Pelvis CT 07/31/23 17:32 IMPRESSION: Diverticulitis of the descending colon without abscess or perforation. Suspect hemangiomas the posterior segment right lobe of the liver and correlation with liver mass protocol CT or MRI is recommended. Small hiatal hernia. Electronically Signed: Henry Villagran MD at 19:23 EDT , Discharge Plan Triage Chief Complaint: Abd Pain ED Provider: John Jack Dx/Rx/DC Orders Instructions: ED Diverticulitis Prescriptions: No Action atorvastatin 20 MG tablet 20 mg PO QHS Patient Comments: TAKE 0.05 TABLET(S) EVERY DAY BY ORAL ROUTE. aspirin [Adult Low Dose Aspirin] 81 MG tablet,delayed release (DR/EC) 81 mg PO DAILY spironolactone 25 MG tablet 25 mg PO DAILY Patient Comments: TAKE 1/2 TABLET BY MOUTH ONCE DAILY lisinopril 10 MG tablet 10 mg PO DAILY Patient Comments: TAKE 1 TABLET BY MOUTH EVERY DAY ascorbic acid (vitamin C) [Vitamin C] 1,000 MG tablet 1,000 mg PO DAILY multivitamin with folic acid [Thera] 1 TABLET tablet 1 tab PO DAILY tramadol 50 MG tablet 50 mg PO Q4H PRN PRN (Reason: Pain) 2 Days Qty: 10 0RF prednisone 2.5 mg tablet 2.5 mg PO DAILY Patient Comments: TAKE 1 TABLET BY MOUTH EVERY DAY hydroxychloroquine 200 mg tablet 200 mg PO DAILY Patient Comments: Take one tablet two times a day. Vitamin D3 Primary Care Provider: Laurent Resendez Referrals: Laurent Resendez MD [Primary Care Provider] - Disposition Disposition: Home, Self Care
[2023-07-31] MEDS: Amox/Clavulanate 875 MG Tablet PO (20:05)
[2023-07-31 20:12] VITALS: RESP 16
== END 2023-07-31 20:13 | disposition home or self-care (01) ==
PROVIDERS: Emergency Provider Student in an Organized Health Care Education/Training Program; PCP Family Medicine; Visit Provider Student in an Organized Health Care Education/Training Program
DX: K57.32 Diverticulitis of large intestine without perforation or abscess without bleeding (principal); E11.9 Type 2 diabetes mellitus without complications; D72.829 Elevated white blood cell count, unspecified; I10 Essential (primary) hypertension
CPT/HCPCS: 74177; 80053; 81001; 83690; 85025; 99282; Q9967; A4216

== ENCOUNTER → 2023-10-17 | Outpatient (CLI) | payer OTHER, SELFPAY ==
[2023-10-17 12:22] LABS: Absolute Lymphocyte Count 2.03 X10^3/uL (0.83-4.51); Absolute Neutrophil Count 3.6 X10^3/uL (2.0-7.7); Basophil# 0.09 X10^3/uL; Basophil% 1.3 % (0-1); Eosinophil# 0.22 X10^3/uL; Eosinophils% 3.3 % (0-5); Hematocrit 45.6 % (37-47); Hemoglobin 14.4 g/dL (12.0-15.0); Lymphocyte # 2.03 X10^3/ul (0.83-4.51); Lymphocyte % 30.4 % (19-41); Mean Corp Hgb Conc 31.6 g/dL (32-36); Mean Corpuscular Hgb 30.6 pg (27.0-32.0); Mean Corpuscular Volume 96.8 fL (81-99); Mean Platelet Vol. 10.4 fl (6.2-12.0); Monocyte# 0.69 X10^3/uL; Monocyte% 10.3 % (0-10); NRBC Flagged by Analyzer 0 % (0-5); Neutrophil # 3.59 X10^3/uL (2.7-7.7); Platelet Count 242 K/mm3 (150-450); RBC Distribution Width CV 13.4 % (11.6-14.6); Red Blood Count 4.71 M/mm3 (4.2-5.4); White Blood Count 6.7 K/mm3 (4.4-11.0)
[2023-10-17 12:40] LABS: ALB/GLOB Ratio 1.1 RATIO (0.9-2.4); AST(SGOT) 28 U/L (15-37); Alanine Aminotransfer ALT/SGPT 52 U/L (13-56); Albumin, Serum 3.6 g/dL (3.2-5.0); Alkaline Phosphatase 63 U/L (45-117); Anion Gap 7 (5-15); BUN 19 mg/dL (7-18); BUN/Creat Ratio 20.8 RATIO (10-20); Calcium,Total 8.7 mg/dL (8.5-10.1); Chloride 106 mmol/L (98-107); Creatinine, Serum 0.91 mg/dL (0.55-1.02); EST Glomerular Filtration Rate 65 mL/min (>60); Est Glom Filt Rate - Afr Amer 79 mL/min (>60); Globulin 3.2 g/dL (2.2-4.2); Glucose 109 mg/dL (74-106); Potassium 4.3 mmol/L (3.5-5.1); Protein, Total 6.8 g/dL (6.4-8.2); Sodium Level 140 mmol/L (136-145)
== END | disposition home or self-care (01) ==
LOC: BIMLAB 09:19
PROVIDERS: PCP Family Medicine; Visit Provider Internal Medicine Rheumatology
DX: M05.70 Rheumatoid arthritis with rheumatoid factor of unspecified site without organ or systems involvement (principal); E11.9 Type 2 diabetes mellitus without complications; M79.7 Fibromyalgia; M17.0 Bilateral primary osteoarthritis of knee; M21.40 Flat foot [pes planus] (acquired), unspecified foot; K76.0 Fatty (change of) liver, not elsewhere classified; I10 Essential (primary) hypertension; E78.5 Hyperlipidemia, unspecified; Z79.899 Other long term (current) drug therapy
CPT/HCPCS: 36415; 80053; 85025

== ENCOUNTER → 2024-01-12 | Outpatient (CLI) | payer OTHER, SELFPAY ==
[2024-01-12 15:20] LABS: Absolute Lymphocyte Count 3.08 X10^3/uL (0.83-4.51); Basophil# 0.08 X10^3/uL; Basophil% 0.7 % (0-1); Eosinophil# 0.11 X10^3/uL; Hematocrit 44.5 % (37-47); Hemoglobin 14.3 g/dL (12.0-15.0); Lymphocyte # 3.08 X10^3/ul (0.83-4.51); Lymphocyte % 26.8 % (19-41); Mean Corp Hgb Conc 32.1 g/dL (32-36); Mean Corpuscular Hgb 30.8 pg (27.0-32.0); Mean Corpuscular Volume 95.9 fL (81-99); Mean Platelet Vol. 9.7 fl (6.2-12.0); Monocyte# 1.04 X10^3/uL; NRBC Flagged by Analyzer 0 % (0-5); Neutrophil # 7.01 X10^3/uL (2.7-7.7); Neutrophil % 60.8 % (47-70); Platelet Count 266 K/mm3 (150-450); RBC Distribution Width SD 45.3 fl (35.1-43.9); Red Blood Count 4.64 M/mm3 (4.2-5.4); White Blood Count 11.5 K/mm3 (4.4-11.0)
[2024-01-12 16:10] LABS: AST(SGOT) 25 U/L (15-37); Alanine Aminotransfer ALT/SGPT 46 U/L (13-56); Albumin, Serum 3.5 g/dL (3.2-5.0); Alkaline Phosphatase 61 U/L (45-117); Anion Gap 5 (5-15); BUN 26 mg/dL (7-18); BUN/Creat Ratio 29.5 RATIO (10-20); Chloride 108 mmol/L (98-107); Creatinine, Serum 0.88 mg/dL (0.55-1.02); EST Glomerular Filtration Rate 68 mL/min (>60); Est Glom Filt Rate - Afr Amer 82 mL/min (>60); Globulin 3.4 g/dL (2.2-4.2); Glucose 82 mg/dL (74-106); Potassium 3.9 mmol/L (3.5-5.1); Protein, Total 6.9 g/dL (6.4-8.2); Sodium Level 141 mmol/L (136-145)
== END | disposition home or self-care (01) ==
LOC: BIMLAB 14:00
PROVIDERS: PCP Family Medicine; Referring Provider Internal Medicine Rheumatology; Visit Provider Internal Medicine Rheumatology
DX: M05.70 Rheumatoid arthritis with rheumatoid factor of unspecified site without organ or systems involvement (principal); E11.9 Type 2 diabetes mellitus without complications; M79.7 Fibromyalgia; M17.0 Bilateral primary osteoarthritis of knee; K76.0 Fatty (change of) liver, not elsewhere classified; M21.40 Flat foot [pes planus] (acquired), unspecified foot; I10 Essential (primary) hypertension; E78.5 Hyperlipidemia, unspecified; L68.0 Hirsutism; F32.89 Other specified depressive episodes; Z79.899 Other long term (current) drug therapy
CPT/HCPCS: 36415; 80053; 85025

== ENCOUNTER → 2024-02-22 | Outpatient (CLI) | payer OTHER, SELFPAY ==
[2024-02-22 12:10] LABS: Absolute Lymphocyte Count 1.93 X10^3/uL (0.83-4.51); Absolute Neutrophil Count 3.6 X10^3/uL (2.0-7.7); Basophil# 0.07 X10^3/uL; Basophil% 1.1 % (0-1); Eosinophil# 0.24 X10^3/uL; Eosinophils% 3.6 % (0-5); Hematocrit 44.5 % (37-47); Hemoglobin 14.5 g/dL (12.0-15.0); Lymphocyte # 1.93 X10^3/ul (0.83-4.51); Lymphocyte % 29.3 % (19-41); Mean Corp Hgb Conc 32.6 g/dL (32-36); Mean Corpuscular Hgb 31.4 pg (27.0-32.0); Mean Corpuscular Volume 96.3 fL (81-99); Monocyte# 0.67 X10^3/uL; Monocyte% 10.2 % (0-10); NRBC Flagged by Analyzer 0 % (0-5); Neutrophil % 54.6 % (47-70); Platelet Count 239 K/mm3 (150-450); RBC Distribution Width SD 45.1 fl (35.1-43.9); Red Blood Count 4.62 M/mm3 (4.2-5.4); White Blood Count 6.6 K/mm3 (4.4-11.0)
[2024-02-22 12:19] LABS: ALB/GLOB Ratio 1.1 RATIO (0.9-2.4); AST(SGOT) 30 U/L (15-37); Alanine Aminotransfer ALT/SGPT 43 U/L (13-56); Albumin, Serum 3.6 g/dL (3.2-5.0); Alkaline Phosphatase 61 U/L (45-117); Anion Gap 6 (5-15); BUN 18 mg/dL (7-18); BUN/Creat Ratio 19.6 RATIO (10-20); Calcium,Total 9.1 mg/dL (8.5-10.1); Chloride 104 mmol/L (98-107); Creatinine, Serum 0.92 mg/dL (0.55-1.02); EST Glomerular Filtration Rate 65 mL/min (>60); Est Glom Filt Rate - Afr Amer 78 mL/min (>60); Globulin 3.4 g/dL (2.2-4.2); Glucose 117 mg/dL (74-106); Potassium 4.3 mmol/L (3.5-5.1); Sodium Level 138 mmol/L (136-145)
== END | disposition home or self-care (01) ==
LOC: BIMLAB 10:15
PROVIDERS: PCP Family Medicine; Visit Provider Internal Medicine Rheumatology
DX: M05.70 Rheumatoid arthritis with rheumatoid factor of unspecified site without organ or systems involvement (principal); M79.7 Fibromyalgia; Z79.899 Other long term (current) drug therapy
CPT/HCPCS: 36415; 80053; 85025

== ENCOUNTER → 2024-05-18 | Outpatient (CLI) | payer OTHER, SELFPAY ==
--- NOTE | 2024-05-18 09:51 | RAD_ITS ---
STUDY: X-RAY - RIGHT KNEE REASON FOR EXAM: Female, 68 years old. PAIN TECHNIQUE: 4 view(s) of the knee. COMPARISON: 09/24/2018 FINDINGS: Normal visualized distal femur. Normal visualized proximal tibia and fibula. Normal proximal tibiofibular articulation. There is no demonstrated fracture. Normal medial femorotibial compartment. Normal lateral femorotibial compartment. Normal patellofemoral articulation. There is no demonstrated joint effusion. The soft tissue structures are unremarkable. RAD/Knee 4 or More Views IMPRESSION: No significant change. No acute abnormality. Electronically Signed: Gokul Gallagher MD at 11:54 EDT ,
--- NOTE | 2024-05-18 09:52 | RAD_ITS ---
STUDY: X-RAY - LEFT KNEE REASON FOR EXAM: Female, 68 years old. PAIN TECHNIQUE: 5 view(s) of the knee. COMPARISON: None. FINDINGS: Normal visualized distal femur. Normal visualized proximal tibia and fibula. Normal proximal tibiofibular articulation. There is no demonstrated fracture. There is moderate degenerative arthrosis of the medial femorotibial compartment with moderate joint space narrowing. Normal lateral femorotibial compartment. There is mild degenerative arthrosis of the patellofemoral articulation. The soft tissue structures are unremarkable. RAD/Knee 4 or More Views IMPRESSION: No acute abnormality. No fracture or dislocation. Degenerative changes of the medial compartment. Electronically Signed: Gokul Gallagher MD at 11:52 EDT ,
== END | disposition home or self-care (01) ==
LOC: RAD 09:48
PROVIDERS: PCP Family Medicine; Referring Provider Internal Medicine Rheumatology; Visit Provider Internal Medicine Rheumatology
DX: M05.70 Rheumatoid arthritis with rheumatoid factor of unspecified site without organ or systems involvement (principal); Z79.899 Other long term (current) drug therapy; M79.7 Fibromyalgia; M17.0 Bilateral primary osteoarthritis of knee
CPT/HCPCS: 73564

== ENCOUNTER → 2024-05-21 | Outpatient (CLI) | payer OTHER, SELFPAY ==
[2024-05-21 17:42] LABS: Absolute Lymphocyte Count 2.78 X10^3/uL (0.83-4.51); Absolute Neutrophil Count 6.9 X10^3/uL (2.0-7.7); Basophil% 0.9 % (0-1); Eosinophil# 0.26 X10^3/uL; Eosinophils% 2.3 % (0-5); Hematocrit 42.5 % (37-47); Hemoglobin 13.6 g/dL (12.0-15.0); Lymphocyte # 2.78 X10^3/ul (0.83-4.51); Lymphocyte % 24.2 % (19-41); Mean Corpuscular Hgb 30.6 pg (27.0-32.0); Mean Corpuscular Volume 95.7 fL (81-99); Mean Platelet Vol. 9.5 fl (6.2-12.0); Monocyte# 1.24 X10^3/uL; Monocyte% 10.8 % (0-10); NRBC Flagged by Analyzer 0 % (0-5); Neutrophil # 6.93 X10^3/uL (2.7-7.7); Neutrophil % 60.1 % (47-70); Platelet Count 279 K/mm3 (150-450); RBC Distribution Width SD 44.4 fl (35.1-43.9); Red Blood Count 4.44 M/mm3 (4.2-5.4); White Blood Count 11.5 K/mm3 (4.4-11.0)
[2024-05-21 17:59] LABS: ALB/GLOB Ratio 0.7 RATIO (0.9-2.4); AST(SGOT) 22 U/L (15-37); Alanine Aminotransfer ALT/SGPT 38 U/L (13-56); Albumin, Serum 3.1 g/dL (3.2-5.0); Alkaline Phosphatase 69 U/L (45-117); Anion Gap 6 (5-15); BUN 17 mg/dL (7-18); BUN/Creat Ratio 17.5 RATIO (10-20); Calcium,Total 9.4 mg/dL (8.5-10.1); Chloride 109 mmol/L (98-107); Creatinine, Serum 0.97 mg/dL (0.55-1.02); EST Glomerular Filtration Rate 61 mL/min (>60); Est Glom Filt Rate - Afr Amer 74 mL/min (>60); Globulin 4.2 g/dL (2.2-4.2); Glucose 109 mg/dL (74-106); Potassium 3.7 mmol/L (3.5-5.1); Protein, Total 7.3 g/dL (6.4-8.2); Sodium Level 143 mmol/L (136-145)
== END | disposition home or self-care (01) ==
LOC: LAB.FUTURE 16:47 → MTLAB 16:48
PROVIDERS: PCP Family Medicine; Referring Provider Internal Medicine Rheumatology; Visit Provider Internal Medicine Rheumatology
DX: M05.70 Rheumatoid arthritis with rheumatoid factor of unspecified site without organ or systems involvement (principal); M79.7 Fibromyalgia; M15.9 Polyosteoarthritis, unspecified; Z79.899 Other long term (current) drug therapy
CPT/HCPCS: 36415; 80053; 85025

== ENCOUNTER → 2024-08-07 | Outpatient (CLI) | payer OTHER, SELFPAY ==
[2024-08-07 18:09] LABS: Absolute Lymphocyte Count 2.01 X10^3/uL (0.83-4.51); Absolute Neutrophil Count 4.8 X10^3/uL (2.0-7.7); Basophil# 0.06 X10^3/uL; Basophil% 0.7 % (0-1); Eosinophil# 0.22 X10^3/uL; Eosinophils% 2.7 % (0-5); Hematocrit 43.5 % (37-47); Lymphocyte # 2.01 X10^3/ul (0.83-4.51); Lymphocyte % 24.9 % (19-41); Mean Corp Hgb Conc 32.2 g/dL (32-36); Mean Corpuscular Hgb 30.8 pg (27.0-32.0); Mean Corpuscular Volume 95.6 fL (81-99); Mean Platelet Vol. 10.1 fl (6.2-12.0); Monocyte# 0.94 X10^3/uL; Monocyte% 11.6 % (0-10); NRBC Flagged by Analyzer 0 % (0-5); Neutrophil # 4.76 X10^3/uL (2.7-7.7); Neutrophil % 59.1 % (47-70); Platelet Count 249 K/mm3 (150-450); RBC Distribution Width CV 13.4 % (11.6-14.6); RBC Distribution Width SD 47.2 fl (35.1-43.9); Red Blood Count 4.55 M/mm3 (4.2-5.4); White Blood Count 8.1 K/mm3 (4.4-11.0)
[2024-08-07 18:23] LABS: ALB/GLOB Ratio 1.2 RATIO (0.9-2.4); AST(SGOT) 27 U/L (15-37); Alanine Aminotransfer ALT/SGPT 41 U/L (13-56); Albumin, Serum 3.9 g/dL (3.2-5.0); Alkaline Phosphatase 66 U/L (45-117); Anion Gap 6 (5-15); BUN 16 mg/dL (7-18); BUN/Creat Ratio 18.9 RATIO (10-20); Calcium,Total 9.4 mg/dL (8.5-10.1); Chloride 108 mmol/L (98-107); Creatinine, Serum 0.85 mg/dL (0.55-1.02); EST Glomerular Filtration Rate 71 mL/min (>60); Est Glom Filt Rate - Afr Amer 86 mL/min (>60); Globulin 3.2 g/dL (2.2-4.2); Glucose 71 mg/dL (74-106); Potassium 3.9 mmol/L (3.5-5.1); Protein, Total 7.1 g/dL (6.4-8.2); Sodium Level 140 mmol/L (136-145)
== END | disposition home or self-care (01) ==
LOC: MTLAB 15:12
PROVIDERS: PCP Family Medicine; Referring Provider Internal Medicine Rheumatology; Visit Provider Internal Medicine Rheumatology
DX: M17.0 Bilateral primary osteoarthritis of knee (principal); M05.70 Rheumatoid arthritis with rheumatoid factor of unspecified site without organ or systems involvement; M79.7 Fibromyalgia; Z79.899 Other long term (current) drug therapy
CPT/HCPCS: 36415; 80053; 85025

== ENCOUNTER → 2024-08-21 | Outpatient (CLI) | payer OTHER, SELFPAY ==
[2024-08-21 17:55] LABS: Pathologist Comment May follow
[2024-08-21 19:16] LABS: Synovial Fld Mononuclear WBC # 0.046 10^3/ul; Synovial Fld Mononuclear WBC % 83.6 %; Synovial Fld Polynuclear WBC # 0.009 10^3/uL; Synovial Fld Polynuclear WBC % 16.4 %
[2024-08-21 21:38] LABS: Lymph 15 %; Monocyte /Synovial Fluid 3 %; Other Cell /Synovial Fluid 82 %
[2024-08-21 21:39] LABS: AUTO B FLUID DILUENT BKGD CT WBC <0.1 RBC <0.01 (W<.1,R<.01); Appearance /Synovial Fluid Sl hazy (CLEAR); CRYSTALS, BODY FLUID NO CRYSTALS SEEN; Color / Synovial Fluid Yellow (Pale Yellow); Source / Synovial Fluid LEFT KNEE; Source- Body Fluid SYNOVIAL
[2024-08-21 21:40] LABS: Body Fluid QC Type(s) BF1Q,BF2Q; RBC /Synovial Fluid 105 /mm3 (0)
[2024-08-23 08:07] LABS: Pathologist Review Reviewed
== END | disposition home or self-care (01) ==
PROVIDERS: PCP Family Medicine; Referring Provider Internal Medicine Rheumatology; Visit Provider Internal Medicine Rheumatology
DX: M05.70 Rheumatoid arthritis with rheumatoid factor of unspecified site without organ or systems involvement (principal)
CPT/HCPCS: 87070; 87075; 87205; 89050; 89051; 89060

== ENCOUNTER → 2024-11-04 | Outpatient (CLI) | payer OTHER, SELFPAY ==
[2024-11-04 16:57] LABS: Absolute Lymphocyte Count 2.11 X10^3/uL (0.83-4.51); Absolute Neutrophil Count 4.4 X10^3/uL (2.0-7.7); Basophil# 0.08 X10^3/uL; Eosinophil# 0.26 X10^3/uL; Eosinophils% 3.3 % (0-5); Hematocrit 43.9 % (37-47); Hemoglobin 14.3 g/dL (12.0-15.0); Lymphocyte # 2.11 X10^3/ul (0.83-4.51); Lymphocyte % 27.1 % (19-41); Mean Corp Hgb Conc 32.6 g/dL (32-36); Mean Corpuscular Hgb 31.4 pg (27.0-32.0); Mean Corpuscular Volume 96.3 fL (81-99); Monocyte# 0.85 X10^3/uL; Monocyte% 10.9 % (0-10); NRBC Flagged by Analyzer 0 % (0-5); Neutrophil # 4.39 X10^3/uL (2.7-7.7); Neutrophil % 56.5 % (47-70); Platelet Count 218 K/mm3 (150-450); RBC Distribution Width SD 45.1 fl (35.1-43.9); Red Blood Count 4.56 M/mm3 (4.2-5.4); White Blood Count 7.8 K/mm3 (4.4-11.0)
[2024-11-04 17:16] LABS: ALB/GLOB Ratio 1.2 RATIO (0.9-2.4); AST(SGOT) 35 U/L (15-37); Alanine Aminotransfer ALT/SGPT 58 U/L (13-56); Albumin, Serum 3.8 g/dL (3.2-5.0); Alkaline Phosphatase 67 U/L (45-117); Anion Gap 7 (5-15); BUN 13 mg/dL (7-18); BUN/Creat Ratio 14.3 RATIO (10-20); Calcium,Total 9.9 mg/dL (8.5-10.1); Chloride 106 mmol/L (98-107); Creatinine, Serum 0.91 mg/dL (0.55-1.02); EST Glomerular Filtration Rate 66 mL/min (>60); Est Glom Filt Rate - Afr Amer 79 mL/min (>60); Globulin 3.1 g/dL (2.2-4.2); Glucose 97 mg/dL (74-106); Protein, Total 6.9 g/dL (6.4-8.2); Sodium Level 140 mmol/L (136-145)
== END | disposition home or self-care (01) ==
LOC: BIMLAB 15:57
PROVIDERS: PCP Family Medicine; Referring Provider Internal Medicine Rheumatology; Visit Provider Internal Medicine Rheumatology
DX: M05.70 Rheumatoid arthritis with rheumatoid factor of unspecified site without organ or systems involvement (principal); M79.7 Fibromyalgia; Z79.899 Other long term (current) drug therapy
CPT/HCPCS: 36415; 80053; 85025

== ENCOUNTER → 2024-12-24 | Outpatient (CLI) | payer MEDICARE, SELFPAY ==
[2024-12-24 16:00] LABS: Absolute Lymphocyte Count 3.18 X10^3/uL (0.83-4.51); Absolute Neutrophil Count 8.7 X10^3/uL (2.0-7.7); Basophil# 0.07 X10^3/uL; Basophil% 0.5 % (0-1); Eosinophil# 0.17 X10^3/uL; Eosinophils% 1.3 % (0-5); Hematocrit 45.4 % (37-47); Hemoglobin 14.7 g/dL (12.0-15.0); Lymphocyte # 3.18 X10^3/ul (0.83-4.51); Lymphocyte % 24.2 % (19-41); Mean Corp Hgb Conc 32.4 g/dL (32-36); Mean Corpuscular Hgb 30.9 pg (27.0-32.0); Mean Corpuscular Volume 95.6 fL (81-99); Mean Platelet Vol. 9.9 fl (6.2-12.0); Monocyte# 0.82 X10^3/uL; Monocyte% 6.2 % (0-10); NRBC Flagged by Analyzer 0 % (0-5); Neutrophil # 8.71 X10^3/uL (2.7-7.7); Neutrophil % 66.2 % (47-70); Platelet Count 291 K/mm3 (150-450); RBC Distribution Width CV 12.9 % (11.6-14.6); RBC Distribution Width SD 44.9 fl (35.1-43.9); Red Blood Count 4.75 M/mm3 (4.2-5.4); White Blood Count 13.2 K/mm3 (4.4-11.0)
[2024-12-24 18:54] LABS: ALB/GLOB Ratio 1.4 RATIO (0.9-2.4); AST(SGOT) 24 U/L (<=31); Alanine Aminotransfer ALT/SGPT 29 U/L (<=34); Albumin, Serum 4.2 g/dL (3.4-4.8); Alkaline Phosphatase 67 U/L (35-104); Anion Gap 13 (5-15); BUN 16 mg/dL (4-19); BUN/Creat Ratio 17.9 RATIO (10-20); Calcium,Total 9.4 mg/dL (7.6-11.0); Carbon Dioxide 24.3 mmol/L (21.0-32.0); Chloride 101 mmol/L (98-108); Creatinine, Serum 0.89 mg/dL (0.70-1.20); EST Glomerular Filtration Rate 71 (>60); Globulin 2.9 g/dL (2.2-4.2); Glucose 86 mg/dL (70-99); Potassium 4.2 mmol/L (3.3-5.1); Protein, Total 7.1 g/dL (5.9-8.4); Sodium Level 138 mmol/L (133-145); Total Bilirubin 0.42 mg/dL (0.00-1.30)
== END | disposition home or self-care (01) ==
PROVIDERS: PCP Family Medicine; Visit Provider Internal Medicine Rheumatology
DX: M05.70 Rheumatoid arthritis with rheumatoid factor of unspecified site without organ or systems involvement (principal); M79.7 Fibromyalgia; M15.9 Polyosteoarthritis, unspecified; Z79.899 Other long term (current) drug therapy
CPT/HCPCS: 36415; 80053; 85025

== ENCOUNTER → 2025-03-26 | Outpatient (CLI) | payer MEDICARE, SELFPAY ==
[2025-03-26 17:36] LABS: Absolute Lymphocyte Count 2.14 X10^3/uL (0.83-4.51); Absolute Neutrophil Count 6.1 X10^3/uL (2.0-7.7); Eosinophil# 0.25 X10^3/uL; Eosinophils% 2.6 % (0-5); Hematocrit 41.8 % (37-47); Lymphocyte # 2.14 X10^3/ul (0.83-4.51); Lymphocyte % 22.3 % (19-41); Mean Corp Hgb Conc 33.5 g/dL (32-36); Mean Corpuscular Hgb 30.6 pg (27.0-32.0); Mean Corpuscular Volume 91.5 fL (81-99); Monocyte% 9.4 % (0-10); NRBC Flagged by Analyzer 0 % (0-5); Neutrophil % 63.6 % (47-70); Platelet Count 256 K/mm3 (150-450); RBC Distribution Width CV 13.6 % (11.6-14.6); RBC Distribution Width SD 44.8 fl (35.1-43.9); Red Blood Count 4.57 M/mm3 (4.2-5.4); White Blood Count 9.6 K/mm3 (4.4-11.0)
[2025-03-26 18:33] LABS: ALB/GLOB Ratio 1.5 RATIO (0.9-2.4); AST(SGOT) 29 U/L (<=31); Alanine Aminotransfer ALT/SGPT 33 U/L (<=34); Albumin, Serum 4.2 g/dL (3.4-4.8); Alkaline Phosphatase 67 U/L (35-104); Anion Gap 14 (5-15); BUN 21 mg/dL (4-19); BUN/Creat Ratio 23.3 RATIO (10-20); Calcium,Total 9.5 mg/dL (7.6-11.0); Carbon Dioxide 21.5 mmol/L (21.0-32.0); Chloride 104 mmol/L (98-108); Creatinine, Serum 0.88 mg/dL (0.70-1.20); EST Glomerular Filtration Rate 72 (>60); Globulin 2.7 g/dL (2.2-4.2); Glucose 111 mg/dL (70-99); Potassium 3.9 mmol/L (3.3-5.1); Protein, Total 6.9 g/dL (5.9-8.4); Sodium Level 139 mmol/L (133-145); Total Bilirubin 0.37 mg/dL (0.00-1.30)
== END | disposition home or self-care (01) ==
PROVIDERS: PCP Family Medicine; Referring Provider Internal Medicine Rheumatology; Visit Provider Internal Medicine Rheumatology
DX: M05.70 Rheumatoid arthritis with rheumatoid factor of unspecified site without organ or systems involvement (principal); M79.7 Fibromyalgia; Z79.899 Other long term (current) drug therapy
CPT/HCPCS: 36415; 80053; 85025

== ENCOUNTER → 2025-06-23 | Outpatient (CLI) | payer OTHER, MEDICARE, SELFPAY ==
[2025-06-23 14:28] LABS: Hematocrit 42.3 % (37-47); Hemoglobin 13.9 g/dL (12.0-15.0); Immature Granulocytes Count 0.060 X10^3/uL (0.0-0.0); Mean Corp Hgb Conc 32.9 g/dL (32-36); Mean Corpuscular Volume 93.6 fL (81-99); Mean Platelet Vol. 9.5 fl (6.2-12.0); NRBC Flagged by Analyzer 0 % (0-5); Platelet Count 206 K/mm3 (150-450); RBC Distribution Width CV 13.2 % (11.6-14.6); RBC Distribution Width SD 44.8 fl (35.1-43.9); Red Blood Count 4.52 M/mm3 (4.2-5.4); White Blood Count 7.2 K/mm3 (4.4-11.0)
[2025-06-23 14:53] LABS: AST(SGOT) 37 U/L (<=31); Alanine Aminotransfer ALT/SGPT 48 U/L (<=34); Albumin, Serum 3.9 g/dL (3.4-4.8); Alkaline Phosphatase 62 U/L (35-104); Anion Gap 13 (5-15); BUN 11 mg/dL (4-19); BUN/Creat Ratio 13.7 RATIO (10-20); Calcium,Total 9.0 mg/dL (7.6-11.0); Carbon Dioxide 24.8 mmol/L (21.0-32.0); Chloride 103 mmol/L (98-108); Globulin 2.7 g/dL (2.2-4.2); Glucose 162 mg/dL (70-99); Potassium 3.8 mmol/L (3.3-5.1)
== END | disposition home or self-care (01) ==
PROVIDERS: PCP Family Medicine; Referring Provider Internal Medicine Rheumatology; Visit Provider Internal Medicine Rheumatology
DX: M05.70 Rheumatoid arthritis with rheumatoid factor of unspecified site without organ or systems involvement (principal); M79.7 Fibromyalgia; M17.0 Bilateral primary osteoarthritis of knee; Z79.899 Other long term (current) drug therapy
CPT/HCPCS: 36415; 80053; 85025

== ENCOUNTER → 2025-07-15 | Outpatient (CLI) | payer MEDICARE, OTHER, SELFPAY ==
[2025-07-15 10:10] LABS: AST(SGOT) 25 U/L (<=31); Alanine Aminotransfer ALT/SGPT 30 U/L (<=34); Albumin, Serum 4.0 g/dL (3.4-4.8); Alkaline Phosphatase 67 U/L (35-104); Anion Gap 14 (5-15); BUN 18 mg/dL (4-19); BUN/Creat Ratio 21.2 RATIO (10-20); Calcium,Total 9.6 mg/dL (7.6-11.0); Carbon Dioxide 22.0 mmol/L (21.0-32.0); Chloride 102 mmol/L (98-108); Globulin 2.8 g/dL (2.2-4.2); Glucose 126 mg/dL (70-99); Potassium 4.4 mmol/L (3.3-5.1)
== END | disposition home or self-care (01) ==
LOC: LAB 09:07
PROVIDERS: PCP Family Medicine; Referring Provider Internal Medicine Rheumatology; Visit Provider Internal Medicine Rheumatology
DX: M05.70 Rheumatoid arthritis with rheumatoid factor of unspecified site without organ or systems involvement (principal); Z79.899 Other long term (current) drug therapy
CPT/HCPCS: 36415; 80053

== ENCOUNTER 2025-08-19 17:30 | Outpatient (RCR) | payer OTHER, MEDICARE, SELFPAY ==
--- NOTE | 2025-06-12 18:53 | HP.PTEVAL ---
Patient's Visit Information Visit Information Visit Information: JOEL MULLINS is a 69 year old F referred to Physical Therapy by CHRISTEL Vargas with a diagnosis of OA L kne. Date of Evaluation: 06/12/25 Physical Therapist: Michael Breen, RAGHAVT, OCS, CSCS Visit Plan Frequency: 2x /Week Duration: 4-6 Weeks Plan: 2x/week for 4-6 weeks for aquatic therapy for B knee adn hip ROM, stretch quad, core adn hip adn knee strength to I pool /home program. IE LAQ if sitting long time and activity modification as ablee Subjective Subjective: OA L knee and painful. Has OA in both knees. L knee given voltarin and it helped. Will do that for21 days. it helped 75%. L knee pain this week to 7/10 at times if on it alot. yardwork is worse. Feels better sitting. Ice helps. Massage chair helps. Sleep is not a problem anymore. No regular exercises. 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 Not calling off work more than once. Basic ADLs: dresses and bathes and bathroom all I, pain may make her cautious. Hobbies: read, cats Pain L knee: Pain Intensity (Out of 10): 1 Pain Intensity Range: 0 and 7 Objective Objective: Walks I without AD with L knee varus obvious. Slight antalgia. transfer chair and bed I. L knee AROM -3 to 115, R knee 0-130, tightness present in quad L >R and HS B at -30 90/90 test. Hips are painful to move also and limited to 0 ext with + FABERE and FADDIR B slightly. ankles moving OK with some gastroc tightness B. + bounce home L and + scour L knee especially medially. tender to palpation L meedial knee joint line, patella moving well B. Balance/Special Test Scores Lower Extremity Functional Score: 46 Goals Goal 1:: I appropriate water/HEP to limit future problems with OA and pain Goal Time Frame: 4-6 Weeks Goal 2:: Pain in L knee 1/10 at worst adn 90% improved. Goal Time Frame: 4-6 Weeks Goal 3:: sleep without waking at night due to pain. Goal Time Frame: 4-6 Weeks Goal 4:: work consistently without increased pain Goal Time Frame: 4-6 Weeks Goal 5:: LEFS score 53 Goal Time Frame: 4-6 Weeks Rehabilitation Potential Physical Therapy Diagnosis: widspread degeneration notably in L knee with varus deformity effecting comfortable funciton. Rehabilitation Potential: Fair Anticipated Interventions Patient/Client Instruction: Educate patient on: Condition and Plan of Care For the Purpose of:: To decrease pain, To increase ROM, To improve nutrient delivery to tissue, To improve muscle performance and motor function and To increase tolerance to activity/condition/position Therapeutic Exercise to Include: Strength training, Flexibilty training, Gait and locomotor training, "In an aquatic setting", Passive ROM and Active ROM For the Purpose of:: To decrease pain, To increase ROM, To improve nutrient delivery to tissue, To improve muscle performance and motor function, To increase tolerance to activity/condition/position, To improve ability of physical actions for home/community/work/leisure and To improve gait and locomotor functions Text: Thank you for the opportunity to evaluate your patient. For Medicare and Medicare HMO plans, please review the plan of care and approve it. It will need to be FAXED BACK to us at [phone] for Medicare purposes. For Medicare only, by signing this I certify the plan of care. Please let me know if there are questions or concerns regarding this plan of care. Physician Signature: Date:
--- NOTE | 2025-07-17 10:22 | HP.PTREVAL ---
Re-Evaluation Intro: CHRISTEL Vargas, It has been my pleasure to treat JOEL MULLINS over the last 8 visits for OA L knee. Please see the progress note below for an update on the physical therapy plan of care! Subjective Subjective: Doing betteer. I can stand up without as much pain, easier to stand. More eenergy. Working is going OK. Gets up every hour or so to walk. Dr gonzalez this am and wants her to lose weight. Does not f/u with [facility] yet. Injections gel and surgery may be an option. Wants another round of pool therapy. Not sure she knows how to do this herself and does not really want more meds or surgery if she can avoid it. Signed [facility] Objective Objective/Function: LEFS slowly improving. Transfer out of chair without evidence of pain today. Walks without antalgia but feels 3/10 pain L knee. ROM WFL. heel and toe raises without a problem, marches with increase stiffness in knee. Current goals still appropriate for another 4 week POC with fair prognosis to gain I with management in pool. Plan Plan Plan: 2x/week for 4 more weeks until end Otober to progress LE strength, and general pool ex toward I for [facility] membership, work on knee ROM and funcitonal strength. Balance/Gait/Functional tests Balance/Special Test Scores Lower Extremity Functional Score: 47 Goals Goals Goal 1:: I appropriate water/HEP to limit future problems with OA and pain Goal Time Frame: 4-6 Weeks Goal Progress: Progressing Goal 2:: Pain in L knee 1/10 at worst adn 90% improved. Goal Time Frame: 4-6 Weeks Goal Progress: Progressing Goal 3:: sleep without waking at night due to pain. Goal Time Frame: 4-6 Weeks Goal Progress: not up with knees Goal 4:: work consistently without increased pain Goal Time Frame: 4-6 Weeks Goal Progress: Progressing Goal 5:: LEFS score 53 Goal Time Frame: 4-6 Weeks Goal Progress: Progressing Anticipated Interventions Anticipated Interventions Patient/Client Instruction: Educate patient on: Condition and Plan of Care For the Purpose of:: To decrease pain, To increase ROM, To improve nutrient delivery to tissue, To improve muscle performance and motor function and To increase tolerance to activity/condition/position Therapeutic Exercise to Include: Strength training, Flexibilty training, Gait and locomotor training, "In an aquatic setting", Passive ROM and Active ROM For the Purpose of:: To decrease pain, To increase ROM, To improve nutrient delivery to tissue, To improve muscle performance and motor function, To increase tolerance to activity/condition/position, To improve ability of physical actions for home/community/work/leisure and To improve gait and locomotor functions Re-Evaluation Ending Re-evaluation ending: Please do not hesitate to contact me at [phone] by phone or if you have questions or concerns regarding this new plan of care! Sincerely, Michael Breen, DPT, OCS, CSCS
--- NOTE | 2025-08-19 18:10 | HP.PTDCSUM ---
Discharge Summary D/C summary: It has been my pleasure to treat JOEL MULLINS referred by CHRISTEL Vargas, with the diagnosis of OA L knee for a total of 16 visit(s). Discharge Date: 08/19/25 Please see the following information for a summary of their discharge status. Subjective Subjective: L knee is a struggle. Some days are great. Monday after noon it started hurting. pain monday was 4.10 and hurt all after noon. no idea what is making jeff better or worse. Doing exercisees at home. Water is treating her well. It helps, rest of body feels really good. Back to [facility] and may need knee replacement or gel shots or injection. Takes prednisone as needed for knee, not much lately. Pain L knee: Pain Intensity (Out of 10): 7 Overall Improvement % Improvement: 50 Objective Objective/Function: -2 to 1010 AROM L knee adn 0-122 R knee. Walks without antalgia today but tightness with butt kicks. Goals Goal 1:: I appropriate water/HEP to limit future problems with OA and pain Goal Progress: Goal Met Goal 2:: Pain in L knee 1/10 at worst adn 90% improved. Goal Progress: 50% to 7/10 Goal 3:: sleep without waking at night due to pain. Goal Progress: Goal Met Goal 4:: work consistently without increased pain Goal Progress: Progressing, kne worse Goal 5:: LEFS score 53 Goal Progress: Goal Met Plan Plan: d/c to I pool program 3x/week, HEP on in between days. D/C Information d/c sentence: If there are questions or concerns regarding this patient's physical therapy, please feel free to call me at [phone]. Thank you for the referral of this patient. Sincerely, Michael Breen, DPT, OCS, CSCS Balance/Gait/Functional tests Balance/Special Test Scores Lower Extremity Functional Score: 55 Improvement % Improvement: 50
== END 2025-08-19 19:00 | disposition home or self-care (01) ==
LOC: PT 17:30
PROVIDERS: PCP Family Medicine; Referring Provider Physician Assistant; Visit Provider Physician Assistant
DX: M17.32 Unilateral post-traumatic osteoarthritis, left knee (principal); M21.162 Varus deformity, not elsewhere classified, left knee
CPT/HCPCS: 97113; 97161; 97164

== ENCOUNTER 2025-09-06 08:17 | Emergency (ER) | payer OTHER, MEDICARE, SELFPAY ==
[2025-09-06 08:18] VITALS: BP 149/72; PULSE 77; RESP 14; TEMP 36.1; O2SAT 98; BMI 42.7
--- NOTE | 2025-09-06 08:30 | CT_ITS ---
PROCEDURE: ABDOMEN/PELVIS W IV CONT ONLY 09/06/2025 REASON FOR EXAM: ABDOMINAL PAIN, DIARRHEA TECHNIQUE: Procedure Code: [id number] Modality: CT Procedure: ABDOMEN/PELVIS W IV CONT ONLY Coronal and Sagittal reconstruction series were provided. CONTRAST: Isovue 370 VOLUME: 95 mL One or more dose reduction techniques were used (e.g., Automated exposure control, adjustment of the mA and/or kV according to patient size, use of iterative reconstruction technique. RADIATION DOSE SUMMARY: CTDlvol: 24.06 mGy DLP: 1285.74 mGycm COMPARISON: None. FINDINGS: Lung bases: Clear. Liver: Liver steatosis. Gallbladder: Unremarkable. Spleen: Unremarkable. Pancreas: Unremarkable. Adrenals: Unremarkable. Kidneys: A 4 mm stone at the midpole of the left kidney. No hydronephrosis. Bladder: Unremarkable. Reproductive Organs: Unremarkable. Bowel: Colonic diverticulosis. Diffuse mural thickening of the transverse and descending colon with perinephric fat stranding concerning for acute colitis which can be infectious, inflammatory or ischemic. Appendix: Normal. Lymph nodes: No lymphadenopathy. Vasculature: No aneurysm of the aorta. Atherosclerotic calcifications. Peritoneum / Retroperitoneum: No free air or free fluid. Bones: Multilevel degenerate changes. No acute bony abnormalities. CT/Abdomen/Pelvis W IV Cont ONLY IMPRESSION: A 4 mm stone at the midpole of the left kidney. No hydronephrosis. Colonic diverticulosis. Diffuse mural thickening of the transverse and descendi ng colon with perinephric fat stranding concerning for acute colitis which can be infectious, inflammatory or ischemic. Reading Location: [id number]
--- NOTE | 2025-09-06 08:31 | ED.VIS.GI ---
HPI HPI - GI History of Present Illness Chief Complaint: Abd Pain Narrative Narrative: 69-year-old female past medical history of type 2 diabetes, previous diverticulitis about a year ago presents with nausea, vomiting, and lower abdominal pain that began at 1:00 this morning. This was approximately 7 hours ago. She states she got up in the middle the night and had to use the bathroom. She then started having multiple episodes of nausea and vomiting. It developed into diarrhea. She noticed bright red blood per rectum with some of her stool. No diandra hematemesis. She does not take blood thinners. She states this feels similar to when she had diverticulitis that improved with antibiotics, but states she has never had rectal bleeding associated with it. She is concerned because she states her father had to have emergency surgery because of diverticulitis. Her nausea and vomiting has improved, but she was able to drive herself to the emergency department because of the lower abdominal pain. [facility] Medical History Hypertension Diabetes mellitus, type II Fibromyalgia Rheumatoid arthritis Home Medications ?Medication ?Instructions ?Recorded ?Last Taken ?Type aspirin 81 mg tablet,delayed 81 mg PO DAILY 03/30/18 Unknown History release (Adult Low Dose Aspirin) atorvastatin 20 mg tablet 20 mg PO QHS 03/30/18 Unknown History lisinopril 10 mg tablet 10 mg PO DAILY 03/30/18 Unknown History spironolactone 25 mg tablet 25 mg PO DAILY 03/30/18 Unknown History ascorbic acid (vitamin C) 1,000 mg 1,000 mg PO DAILY 06/05/18 Unknown History tablet (Vitamin C) multivitamin with folic acid 400 1 tab PO DAILY 06/05/18 Unknown History mcg tablet (Thera) tramadol 50 mg tablet 50 mg PO Q4H PRN PRN Pain 2 days 06/05/18 Unknown Rx #10 tabs Vitamin D3 05/14/21 Unknown History hydroxychloroquine 200 mg tablet 200 mg PO DAILY 05/14/21 Unknown History prednisone 2.5 mg tablet 2.5 mg PO DAILY 05/14/21 Unknown History amoxicillin 875 mg-potassium 1 tab PO BID #20 tabs 07/31/23 Unknown Rx clavulanate 125 mg tablet ciprofloxacin HCl 500 mg tablet 500 mg PO BID #14 TABLETS 09/06/25 Unknown Rx metronidazole 500 mg tablet 500 mg PO TID 7 days #21 tabs 09/06/25 Unknown Rx Allergy/AdvReac Type Severity Reaction Status Date / Time diflunisal (From Dolobid) Allergy Rash Verified 09/06/25 08:17 Social History household members: family Smoking Status: Never smoker ROS ROS ED ROS Narrative Review of systems positive for nausea, vomiting, diarrhea. No fevers or chills. No prior abdominal surgeries. Positive lower abdominal pain. EXAM Physical Exam Narrative Exam Narrative: Afebrile. Vital signs noted. Nontoxic-appearing. Cardiovascular examination reveals regular rate and rhythm. Lungs are clear to auscultation bilaterally. Abdomen is soft with minimal tenderness to palpation of the bilateral lower quadrants left greater than right. No guarding or rebound. Positive bowel sounds. Neurological examination nonfocal, nonlateralizing. Const Vital Signs: 09/06/25 08:18 Temperature 97 F L Temperature Source Temporal Pulse Rate 77 Respiratory Rate 14 Blood Pressure 149/72 H Blood Pressure Mean 97 Pulse Ox 98 Oxygen Delivery Method Room Air MDM MDM MDM Narrative Medical decision making narrative: The differential diagnosis includes but not limited to diverticulitis with or without microperforation versus ureterolithiasis versus gastroenteritis versus pancreatitis. Comprehensive workup was pursued. I do feel that she needs CT imaging of her abdomen. I have low suspicion clinically for obstruction. I reviewed her laboratory work and she does have slight leukocytosis of 15,000 with hemoglobin of 14.6, hematocrit 44.3, platelet count 255. CMP is remarkable for glucose of 152 with a BUN of 17 and creatinine 0.90. ALT is slightly elevated at 43 which I think is nonspecific, lipase normal at 25 so I doubt pancreatitis. Urinalysis is negative for infection with 0-5 WBCs and 0-5 RBCs. I do not feel that antibiotics are indicated for a urinary tract infection. She also has negative nitrites. CT of the abdomen pelvis with IV contrast does show colonic diverticulosis. She has mural thickening of the transverse and descending colon as well. While this could be an infectious colitis versus inflammatory versus ischemic, I have low suspicion for ischemic colitis because her abdomen remains soft on reexamination, and she is not having pain out of proportion. I discussed the patient with Dr. Dunlap. It does not seem that this would be an inflammatory colitis as she is already on methotrexate. Patient did not have a bowel movement here in the emergency department. I do feel that she probably has more of an infectious colitis. She was given her first doses of ciprofloxacin and metronidazole here in the emergency department and prescriptions written for the next week. She should follow-up with her primary care provider and/or gastroenterology. I do feel that she merits outpatient trial and that she does not require observation or admission at this time as she is not febrile. She can take [id number] medications as needed for pain. She was told not to drink alcohol while taking metronidazole as well. Return instructions to the emergency department were reviewed. Patient is agreeable to the plan. Disposition is discharged home in stable condition. History & Record Review Discussion w/independent historian: Patient Additional record(s) reviewed:: Prior labs (Intermittent leukocytosis) Lab Data Attestation: I reviewed the patient's lab results. Labs: Laboratory Results - last 24 hr 09/06/25 09/06/25 08:28 08:40 WBC 15.0 H RBC 4.83 Hgb 14.6 Hct 44.3 MCV 91.7 MCH 30.2 MCHC 33.0 RDW Std Deviation 44.4 H RDW Coeff of Ramo 13.2 Plt Count 255 MPV 9.7 Immature Gran % (Auto) 0.700 Neut % (Auto) 87.9 H Lymph % (Auto) 6.0 L [place] % (Auto) 5.0 Eos % (Auto) 0.1 Baso % (Auto) 0.3 Absolute Neuts (auto) 13.2 H Absolute Lymphs (auto) 0.90 Nucleated RBC % 0 Sodium 140 Potassium 4.2 Chloride 102 Carbon Dioxide 23.8 Anion Gap 15 BUN 17 Creatinine 0.90 Estim Creat Clear Calc 65.88 Est GFR (MDRD) Non-Af 70 BUN/Creatinine Ratio 18.5 Glucose 152 H Calcium 9.9 Total Bilirubin 0.59 AST 32 ALT 43 H Alkaline Phosphatase 61 Total Protein 7.1 Albumin 4.3 Globulin 2.8 Albumin/Globulin Ratio 1.5 Lipase 25 Urine Color Yellow Urine Clarity Clear Urine pH 6.0 Ur Specific [place] 1.030 Urine Protein 30 H Urine Glucose (UA) Normal Urine Ketones 5 H Urine Occult Blood 150 H Urine Nitrite Negative Urine Bilirubin Negative Urine Urobilinogen Normal Ur Leukocyte Esterase 25 H Urine RBC 0-5 SEEN Urine WBC 0-5 SEEN Ur Squamous Epith Cells 0-5 SEEN Urine Bacteria 2+ Urine Mucus 0 SEEN Radiography Diagnostic Testing: Clinical Impression(s) from Imaging Studies Abdomen/Pelvis CT 09/06/25 08:30 IMPRESSION: A 4 mm stone at the midpole of the left kidney. No hydronephrosis. Colonic diverticulosis. Diffuse mural thickening of the transverse and descending colon with perinephric fat stranding concerning for acute colitis which can be infectious, inflammatory or ischemic. Reading Location: [facility] Management Discussion w/another healthcare provider: Hide Inspector (Dr. Dunlap, gastroenterology) Discharge Plan Triage Chief Complaint: Abd Pain ED Provider: Choco Rees Dx/Rx/DC Orders Clinical Impression: Colitis, Acute lower gastrointestinal bleeding Instructions: GI Bleeding Causes and Tests, ED Understanding Colitis, ED Lower GI Bleeding (Stable) Prescriptions: New ciprofloxacin HCl 500 mg tablet 500 mg PO BID Qty: 14 0RF metronidazole 500 mg tablet 500 mg PO TID 7 Days Qty: 21 0RF No Action atorvastatin 20 MG tablet 20 mg PO QHS Patient Comments: TAKE 0.05 TABLET(S) EVERY DAY BY ORAL ROUTE. aspirin [Adult Low Dose Aspirin] 81 MG tablet,delayed release (DR/EC) 81 mg PO DAILY spironolactone 25 MG tablet 25 mg PO DAILY Patient Comments: TAKE 1/2 TABLET BY MOUTH ONCE DAILY lisinopril 10 MG tablet 10 mg PO DAILY Patient Comments: TAKE 1 TABLET BY MOUTH EVERY DAY ascorbic acid (vitamin C) [Vitamin C] 1,000 MG tablet 1,000 mg PO DAILY multivitamin with folic acid [Thera] 1 TABLET tablet 1 tab PO DAILY tramadol 50 MG tablet 50 mg PO Q4H PRN PRN (Reason: Pain) 2 Days Qty: 10 0RF prednisone 2.5 mg tablet 2.5 mg PO DAILY Patient Comments: TAKE 1 TABLET BY MOUTH EVERY DAY hydroxychloroquine 200 mg tablet 200 mg PO DAILY Patient Comments: Take one tablet two times a day. Vitamin D3 amoxicillin-pot clavulanate 875-125 mg tablet 1 tab PO BID Qty: 20 0RF Primary Care Provider: Laurent Resendez Referrals: Laurent Resendez MD [Primary Care Provider, Family Practice] - 3-5 Days Doug Dunlap DO [Med Staff - Active Staff, Gastroenterology] - 3-5 Days Activity Restrictions/Additional Instructions: Antibiotics as directed. Do not drink alcohol while taking metronidazole. Return to the emergency department with increased rectal bleeding, fever, increased abdominal pain, new or worsening symptoms. Print Language: Malay Disposition Disposition: Home, Self Care
[2025-09-06] MEDS: 0.9% Normal Saline (1000mL) 1,000 ML 999 ML IV (08:38)
[2025-09-06 08:41] LABS: Hematocrit 44.3 % (37-47); Hemoglobin 14.6 g/dL (12.0-15.0); Immature Granulocytes Count 0.110 X10^3/uL (0.0-0.0); Mean Corp Hgb Conc 33.0 g/dL (32-36); Mean Corpuscular Volume 91.7 fL (81-99); Mean Platelet Vol. 9.7 fl (6.2-12.0); NRBC Flagged by Analyzer 0 % (0-5); Platelet Count 255 K/mm3 (150-450); RBC Distribution Width CV 13.2 % (11.6-14.6); RBC Distribution Width SD 44.4 fl (35.1-43.9); Red Blood Count 4.83 M/mm3 (4.2-5.4); White Blood Count 15.0 K/mm3 (4.4-11.0)
[2025-09-06 08:46] LABS: Mucous, Urine 0 SEEN /hpf (<or=2+)
[2025-09-06 08:50] LABS: Color, Urine Yellow (Yellow); Glucose, Dipstick Normal (Normal); Ketone-Dipstick 5 mg/dl (Negative); Leukocyte Esterase-Dipstick 25 /ul (Negative); Nitrite-Dipstick Negative (Negative); Occult Blood-Urine 150 /ul (Negative); Protein-Dipstick 30 mg/dl (Negative); Specific Gravity, Urine 1.030 (1.002-1.030); Urine Bilirubin Dipstick Negative (Negative)
[2025-09-06 09:01] LABS: Red Blood Cells-Urine 0-5 SEEN /hpf (0-5); Squamous Epithelial Cells - UA 0-5 SEEN /hpf (5-10)
--- OUTSIDE RECORDS SUMMARY | 2025-09-06 09:05 | XMS RPT_ITS | CCD ---
Author Organization [facility] CliniSyms Care Team Providers Care Air Conditioning Unit Assembler Name Role Phone Lobo Becerra Unavailable Unavailable Laurent Pagan Unavailable Unavailable Laurent Pagan Unavailable Unavailable Lobo Becerra Unavailable Unavailable Laurent Pagan Unavailable Unavailable Laurent Pagan Unavailable Unavailable Laurent Pagan MD Primary Care Provider Laurent Pagan MD Primary Care Provider Laurent Pagan MD Primary Care Provider Laurent Pagan MD Primary Care Provider Laurent Pagan MD Primary Care Provider Laurent Pagan MD Primary Care Provider Tara EDWARDS, Rossy Unavailable Vanessa Berg PA-C Unavailable Dr. Laurent Pagan MD Primary Care Provider Dr. Sabrina Moran MD Attending Provider Dr. Sabrina Moran MD Referring Provider Laurent Pagan MD Primary Care Provider Laurent Pagan MD Primary Care Provider Rossy Pacheco APRN.CNP Unavailable Vanessa Berg PA-C Unavailable Dr. Laurent Pagan MD Primary Care Provider Dr. Sabrina Moran MD Attending Provider Sabrina Moran MD Referring Provider Dr. Laurent Pagan MD Primary Care Provider Dean MADDEN, Dr. Bennett Attending Provider Desmond KEARNEY, Kary Attending Provider [phone] Desmond KEARNEY, Kary Referring Provider Dean MADDEN, Dr. Bennett Referring Provider Latasha MADDEN, Dr. Mancilla Primary Care Physician Dean MADDEN, Dr. Bennett Attending Physician Desmond KEARNEY, Kary Attending Physician Desmond KEARNEY, Kary Referring Provider Latasha Laurent Primary Care Unavailable Kary Logan Attending Unavailable Kary Logan Referring Unavailable [facility] Primary Care Unavailable Vellanki, Sabrina Attending Unavailable [facility] Primary Care Unavailable Vellanki, Sabrina Attending Unavailable Vellanki, Sabrina Referring Unavailable [facility] Primary Care Unavailable Vellanki, Sabrina Referring Unavailable Vellanki, Sabrina Attending Unavailable [facility] Primary Care Unavailable Vellanki, Sabrina Referring Unavailable Vellanki, Sabrina Attending Unavailable Vellanki, Sabrina Referring Unavailable Vellanki, Sabrina Attending Unavailable [facility] Primary Care Unavailable [facility] Primary Care Unavailable Vellanki, Sabrina Attending Unavailable Vellanki, Sabrina Referring Unavailable PETR BERGE Attending Unavailable LATASHA, LAURENT A Primary Care Unavailable BERG, VANESSA Referring Unavailable LATASHA, LAURENT A Primary Care Unavailable LATASHA, LAURENT A Primary Care Unavailable GREGORY NINO Attending Unavailable BERG, VANESSA Referring Unavailable LATASHA, LAURENT A Primary Care Unavailable BERG, VANESSA Referring Unavailable LATASHA, LAURENT A Primary Care Unavailable BERG, VANESSA Referring Unavailable LATASHA, LAURENT A Primary Care Unavailable BERG, VANESSA Attending Unavailable LATASHA, LAURENT A Primary Care Unavailable BERG, VANESSA Referring Unavailable LATASHA, LAURENT A Primary Care Unavailable LATASHA, LAURENT A Primary Care Unavailable GREGORY NINO Attending Unavailable LATASHA, LAURENT A Primary Care Unavailable MADHAV IGLESIAS Attending Unavailable LATASHA, LAURENT A Primary Care Unavailable GREGORY RINCON Attending Unavailable GREGORY NINO Referring Unavailable LAURENT PAGAN Primary Care Unavailable LAURENT PAGAN Referring Unavailable LAURENT PAGAN Primary Care Unavailable LAURENT PAGAN Referring Unavailable LAURENT PAGAN Primary Care Unavailable VANESSA BERG Attending Unavailable LAURENT PAGAN Primary Care Unavailable GREGORY RINCON Referring Unavailable LAURENT PAGAN Primary Care Unavailable VANESSA BERG Referring Unavailable LAURENT PAGAN Primary Care Unavailable LAURENT ROSE Attending Unavailable LAURENT ROSE Referring Unavailable LAURENT PAGAN Primary Care Unavailable Allergies Allergy Classification Reported Allergen(s) Allergy Type Date of Onset Reaction(s) Facility (20 sources) Diflunisal; Translations: [DIFLUNISAL] Drug Allergy 08-25-2005 [facility] Work Phone: (1 source) Diflunisal Drug Allergy 07-31-2023 [facility] Repository Medications Current Medications Medication Drug Class(es) Dates Sig (Normalized) Sig (Original) acetaminophen 500 mg oral tablet (20 sources) take 1 tablet by mouth once daily at bedtime acetaminophen (TYLENOL) 500 mg tablet Take 500 mg by mouth daily at bedtime. Active Comment on above: Take 500 mg by mouth daily at bedtime. [id number] 200 actuat albuterol 0.09 mg/actuat metered dose inhaler (20 sources) beta2-Adrenergic Agonist Start: 06-23-2025 take 2 puff(s) by inhalation every six hours as needed for wheezing albuterol HFA (PROVENTIL HFA, VENTOLIN HFA) 90 mcg/actuation inhaler Inhale 2 puffs as instructed every 6 hours as needed for wheezing/shortness of breath. 8 g 06/23/2025 Active Start: 05-07-2024 End: 06-26-2024 take 2 puff(s) by inhalation every six hours as needed for wheezing albuterol HFA (PROVENTIL HFA, VENTOLIN HFA) 90 mcg/actuation inhaler Indications: Acute cough Inhale 2 Puffs as instructed every 6 hours as needed for wheezing/shortness of breath. 1 Each 05/07/2024 06/26/2024 Discontinued (Course of therapy completed) Start: 04-21-2023 End: 09-11-2024 take 2 puff(s) by inhalation every six hours as needed for wheezing albuterol HFA (PROVENTIL HFA, VENTOLIN HFA) 90 mcg/actuation inhaler Inhale 2 Puffs as instructed every 6 hours as needed for wheezing/shortness of breath. 8.5 g 04/21/2023 06/26/2024 Discontinued (Course of therapy completed) Comment on above: Inhale 2 Puffs as in structed every 6 hours as needed for wheezing/shortness of breath. amoxicillin 875 mg / clavulanate 125 mg oral tablet (7 sources) Penicillin-class Antibacterial Start: 07-31-2023 Start: 07-31-2023 take 1 tablet by ajay th twice daily Amoxicillin-Pot Clavulanate Active 1 TABLET PO TWICE A DAY July 31, 2023 12:00am ascorbic acid 1000 mg oral tablet (20 sources) Vitamin C Start: 06-05-2018 take 1 tablet by ajay th once daily take 1 tablet by mouth once shayy y ascorbic acid, vitamin C, (VITAMIN C) 500 mg tablet Take 500 mg by mouth once daily. Active Comment on above: Take 500 mg by mouth once daily. aspirin 81 mg delayed release oral tablet (20 sources) Platelet Aggregation Inhibitor, Nonsteroidal Anti-inflammatory Drug Start: 03-30-20 Comment on above: Take 81 mg by mouth once daily. atorvastatin 10 mg oral tablet (20 sources) HMG-CoA Reductase Inhibitor Start: 06-26-20 End: 06-27-20 take 1 tablet by mouth once daily atorvastatin (LIPITOR) 10 mg tablet Indications: Mixed hyperlipidemia Take 1 tablet by mouth once daily. 90 tablet 1 06/27/2025 Active Start: 12-19-2023 End: 06-26-2024 take 0.5 tablet by mouth once daily atorvastatin (LIPITOR) 20 mg tablet Indications: Mixed hyperlipidemia Take 0.5 tablets by mouth once daily. 45 tablet 1 12/19/2023 06/26/2024 Discontinued Start: 05-16-2022 End: 06-26-2023 take 0.5 tablet by mouth once daily atorvastatin (LIPITOR) 20 mg tablet Indications: Mixed hyperlipidemia Take 0.5 tablets by mouth once daily. 45 tablet 1 06/26/2023 Active Start: 11-17-2021 take 0.5 tablet by m out once daily atorvastatin (LIPITOR) 20 mg tablet Indications: Mixed hyperlipidemia Take 0.5 tablets by mouth once daily. 45 tablet 1 11/17/2021 Active Start: 03-30-2018 take 1 tablet by ajay th at bedtime Comment on above: Take 0.5 tablets by mouth once daily. Biotin (20 sources) BIOTIN ORAL Take by mouth. Active BIOTIN ORAL Take by mouth. 0 Active Comment on above: Take by mouth. calcium citrate 1500 mg / cholecalciferol 200 unt oral tablet (20 sources) Vitamin D Start: 019 take 1 tablet by mouth twice daily at mealtime calcium citrate-vitamin D3 (CALCIUM CITRATE + D) 315-200 mg-unit tab Take 1 tablet by mouth twice daily with meals. 02/27/2019 Active Comment on above: Take 1 tablet by ajay th twice daily with meals. cefadroxil 500 mg oral capsule (3 sources) Cephalosporin Antibacterial Start: End: take 1 capsule by mouth twice daily cefADROxil (DURICEF) 500 mg capsule Take 1 capsule by mouth two times a day for 10 days. 20 capsule 0 05/15/2024 05/25/2024 Active DULoxetine 30 mg delayed release oral capsule (20 sources) Serotonin and Norepinephrine Reuptake Inhibitor take 1 capsule by mouth once daily DULoxetine (CYMBALTA) 30 mg capsule Take 30 mg by mouth once daily. Active Comment on above: Take 30 mg by mouth once daily. folic acid 1 mg oral tablet (20 sources) take 1 tablet by mouth once daily folic acid 1 mg tablet Take 1 mg by mouth once daily. Take 2 tablets daily Active Comment on above: Take 1 mg by mouth o nce daily. Take 1 mg by mouth o nce daily. Take 2 tablets daily hydroxychloroquine sulfate 200 mg oral tablet (20 sources) Antimalarial, Antirheumatic Agent Start: 021 take 1 tablet by mouth once daily Inhalational Spacing Device (3 sources) Start: 025 End: Inhalational Spacing Device 1 device one time only for 1 dose. 1 each 06/23/2025 06/23/2025 Active Start: 05-07-2024 End: 05-07-2024 Inhalational Spacing Device 1 Device one time only for 1 dose. 1 Each 0 05/07/2024 05/07/2024 Active iv contrast (will be provide d with radiology test) (4 sources) Start: 06-27-2025 End: 06-28-2025 iv contrast (will be provide d with radiology test) MRI PANC/OTONIEL Inject, intravenously, once for 1 dose. No IV access, insert saline lock prior to the beginning of sedation, infusion, injection of imaging exam. Discontinue saline lock post exam. If Pt. has a central line or IVAD, may access for administration according to line specific nursing protocol. Once exam is complete flush line and de-access according to line specific nursing protocol in the MR contrast administration guidelines link. 1 each 06/27/2025 06/28/2025 Active Start: 06-26-2024 End: 06-27-2024 iv contrast (will be provide d with radiology test) Indications: Pancreatic cyst MRI PANC/OTONIEL Inject, intravenously, once for 1 dose. No IV access, insert saline lock prior to the beginning of sedation, infusion, injection of imaging exam. Discontinue saline lock post exam. If Pt. has a central line or IVAD, may access for administration according to line specific nursing protocol. Once exam is complete flush line and de-access according to line specific nursing protocol in the MR contrast administration guidelines link. 1 Each 06/26/2024 06/27/2024 Active Start: 08-15-2023 End: 08-16-2023 iv contrast (will be provide d with radiology test) MRI Liver Inject, intravenously, once for 1 dose. No IV access, insert saline lock prior to the beginning of sedation, infusion, injection of imaging exam. Discontinue saline lock post exam. If Pt. has a central line or IVAD, may access for administration according to line specific nursing protocol. Once exam is complete flush line and de-access according to line specific nursing protocol in the MR contrast administration guidelines link. 1 Each 0 08/15/2023 08/16/2023 Comment on above: MRI Liver Inject, in travenously, once for 1 dose. No IV access, insert saline lock prior to the beginning of sedation, infusion, injection of imaging exam. Discontinue saline lock post exam. If Pt. has a central line or IVAD, may access for administration according to line specific nursing protocol. Once exam is complete flush line and de-access according to line specific nursing protocol in the MR contrast administration guidelines link. lisinopril 10 mg oral tablet (20 sources) Angiotensin Converting Enzyme Inhibitor Start: 8 End: take 1 tablet by mouth once daily Comment on above: Take 1 tablet by ajay th once daily. Magnesium (20 sources) MAGNESIUM ORAL Take by mouth as directed. Active MAGNESIUM ORAL T izabella by mouth as directed. 0 Active Comment on above: Take by mouth as dir ected. Methotrexate (20 sources) Folate Analog Metabolic Inhibitor take 1 tablet by mouth every week METHOTREXATE ORAL Take 5 mg by mouth. Take 1 tablet weekly Active take 1 tablet by mouth every wee k METHOTREXATE ORAL Take 5 mg by mouth. Take 1 tablet weekly 0 Active METHOTREXATE ORA L Take 2.5 mg by mouth. 0 Active Comment on above: Take 2.5 mg by mouth . Take 5 mg by mouth. Take 1 tablet weekly methylPREDNISolone (2 sources) Corticosteroid Start: 2023 End: 2023 methylPREDNISolone (MEDROL, MARCO,) 4 mg Dose-Pack Indications: Acute cough , URI, acute Follow dosing instructions, take with food. 21 tablet 0 05/07/2024 05/13/2024 Active mometasone furoate 0.05 mg/actuat metered dose nasal spray (20 sources) Corticosteroid Start: 2022 take 2 spray(s) by mouth once daily mometasone (NASONEX) 50 mcg/actuation nasal spray Indications: Seasonal allergic rhinitis, unspecified trigger Use 2 Sprays in the nose once daily. Rinse mouth after use. 17 g 04/21/2023 Active Start: 02-27-2014 take 2 spray(s) by m out once daily mometasone 50 mcg/actuation nasal spray Use 2 Sprays in the nose once daily. Rinse mouth after use. 1 Bottle 11 02/27/2014 Active Comment on above: Use 2 Sprays in the nose once daily. Rinse mouth after use. multivitamin tablet (20 sources) Start: 02-27-2014 take 1 tablet by mouth once daily multivitamin tablet Take 1 tablet by mouth once daily. 0 02/27/2014 Active Comment on above: Take 1 tablet by ajay th once daily. Multivitamin With Folic Acid (Thera) 1 TABLET tablet (13 sources) Start: 06-05-2018 take 1 tablet by mouth once daily Multivitamin With Folic Acid (Thera) 1 TABLET tablet Active 1 TABLET PO DAILY June 05, 2018 1:08am Start: 06-05-2018 take 1 tablet by ajay th once daily Start: 06-05-2018 take 1 tablet by ajay th once daily Multivitamin With Folic Acid (Thera) 1 TABLET tablet Active 1 {tbl} PO DAILY June 05, 2018 12:00am Start: 06-05-2018 take 1 tablet by ajay th once daily Multivitamin With Folic Acid (Thera) 1 TABLET tablet Active 1 TABLET PO DAILY June 04, 2018 11:00pm Start: 06-05-2018 take 1 tablet by ajay th once daily Multivitamin With Folic Acid (Thera) 1 TABLET tablet Active 1 TABLET PO DAILY June 05, 2018 12:00am predniSONE 10 mg oral tablet (20 sources) Start: 06-28-2025 take 1 tablet by mouth every six hours as needed for arthritis predniSONE (DELTASONE) 10 mg tablet Indications: Rheumatoid arthritis involving multiple sites, unspecified whether rheumatoid factor present (HCC) Take 1 tablet by mouth every 6 hours as needed (arthritis flare). 30 tablet 06/28/2025 Active Start: 05-28-2025 End: 06-02-2025 take 1 tablet by mouth once daily predniSONE (DELTASONE) 50 mg Take 1 tablet by mouth once daily for 5 days. 5 tablet 05/28/2025 06/02/2025 Active Start: 12-02-2020 End: 06-28-2025 take 1 tablet by mouth once daily Comment on above: Take 1 tablet by ajay th once daily. Take ten tabs by mouth on day one and reduce by one a day till done. spironolactone 25 mg oral tablet (20 sources) Aldosterone Antagonist Start: 05-16-20 End: 06-27-20 take 0.5 tablet by mouth once daily spironolactone (ALDACTONE) 25 mg tablet Indications: Essential hypertension Take 0.5 tablets by mouth once daily. 45 tablet 1 06/27/2025 06/27/2025 Discontinued (Adjust Sig - Block E-Cancel) Start: 11-17-2021 take 0.5 tablet by m outh once daily spironolactone (ALDACTONE) 25 mg tablet Indications: Essential hypertension Take 0.5 tablets by mouth once daily. 45 tablet 1 11/17/2021 Active Start: 03-30-2018 take 1 tablet by ajay th once daily Comment on above: Take 0.5 tablets by mouth once daily. traMADol hydrochloride 50 mg oral tablet (13 sources) Opioid Agonist Start: 06-05-2018 take 1 tablet by mouth every four hours as needed for pain Turmeric extract (6 sources) TURMERIC PO Take by mouth. Active Vitamin D3 (13 sources) Start: 05-14-2021 Vitamin D3 Active May 14, 2021 10:19pm Start: 05-14-2021 Start: 05-14-2021 Vitamin D3 Act kp May 13, 2021 11:00pm Start: 05-14-2021 Vitamin D3 Act kp May 14, 2021 12:00am Completed/Discontinued Medications Medication Drug Class(es) Dates Sig (Normalized) Sig (Original) acetaminophen 325 mg / HYDROcodone bitartrate 5 mg oral tablet (13 sources) Opioid Agonist Start: 09-24-2018 End: 09-27-2018 Hydrocodone-Acetami nophen 1 TABLET tablet Discontinued 1 {tbl} PO EVERY 6 HOURS NEEDED as needed for Pain 10 3 0 September 24, 2018 1:00am September 26, 2018 1:00am September 27, 2018 1:12am Right knee pain Pain in right knee Start: 09-24-2018 End: 09-27-2018 take 1 tablet by mouth every six hours as needed Hydrocodone-Acetaminophen Discontinued 1 TABLET PO EVERY 6 HOURS NEEDED 10 September 24, 2018 1:00am September 27, 2018 1:12am benzonatate 100 mg oral capsule (7 sources) Non-narcotic Antitussive Start: 06-23-2025 End: 06-30-2025 take 1 capsule by mouth every eight hours as needed benzonatate (TESSALON PERLE) 100 mg capsule Take 1 capsule by mouth three times a day as needed for cough for up to 7 days. 21 capsule 06/23/2025 06/30/2025 Start: 05-07-2024 End: 05-14-2024 take 1 capsule by mouth every eight hours as needed for cough and cough benzonatate (TESSALON PERLES) 100 mg capsule Indications: Acute cough Take 1 capsule by mouth three times a day as needed for up to 7 days. 21 capsule 0 05/07/2024 05/14/2024 Active etanercept 25 mg/ml injectable solution (20 sources) Tumor Necrosis Factor Nanci End: 12-25-2024 inject 0.4 mg by subcutaneous injection every week etanercept (ENBREL) 25 mg (1 mL) injection Inject 0.4 mg/kg/dose subcutaneously one time only. weekly 12/25/2024 Discontinued Comment on above: Inject 0.4 mg/kg/dose subcutaneously one time only. weekly Problems Active Problems Problem Classification Problem Date Documented Da te Episodic/Chronic Abdominal pain (1 source) Left lower quadrant pain; Translations: [Left lower quadrant pain] 07-31-2023 Episodic Administrative/social admission (20 sources) Advance directive discussed with patient; Translations: [Other specified counseling] Onset: 07-06-2022 Episodic Allergic reactions (2 sources) Allergy status to other drugs, medicaments and biological substances status; Translations: [Allergy status to oth drug/meds/biol subst status] Onset: 10-12-2018 Episodic Chronic obstructive pulmonary disease and bronchiectasis (1 source) Bronchitis; Translations: [Bronchitis, not specified as acute or chronic] 05-15-2024 Episodic Diabetes mellitus with complications (3 sources) Neuropathy due to type 2 diabetes mellitus; Translations: [Type 2 diabetes mellitus with diabetic neuropathy, unspecified] Onset: 06-27-2025 06-27-2025 Chronic Diabetes mellitus without complication (20 sources) Type 2 diabetes mellitus without complications; Translations: [Type 2 diabetes mellitus] Onset: 12-12-2017 12-12-2017 Chronic Disorders of lipid metabolism (20 sources) Mixed hyperlipidemia; Translations: [Mixed hyperlipidemia] Onset: 10-12-2018 10-11-2021 Chronic Diverticulosis and diverticulitis (1 source) Diverticulitis; Translations: [Diverticulitis of intestine, part unspecified, without perforation or abscess without bleeding] 08-14-2023 Chronic Essential hypertension (20 sources) Essential (primary) hypertension; Translations: [Essential hypertension] Onset: 12-12-2017 12-12-2017 Chronic Genitourinary symptoms and ill-defined conditions (4 sources) Proteinuria; Translations: [Proteinuria, unspecified] Onset: 06-27-2025 06-29-2023 Episodic Immunizations and screening for infectious disease (5 sources) Vaccination needed; Translations: [Encounter for immunization] Episodic Inflammation; infection of eye (except that caused by tuberculosis or sexually transmitteddisease) (1 source) Internal hordeolum of left upper eyelid; Translations: [Hordeolum internum left upper eyelid] Episodic Other aftercare (2 sources) 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; Translations: [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] Onset: 10-12-2018 Episodic Other aftercare (2 sources) 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 of systemic steroids; Translations: [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 of systemic steroids] Onset: 09-28-2018 Episodic Other aftercare (2 sources) 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; Translations: [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] Onset: 09-28-2018 Episodic Other connective tissue disease (20 sources) Plantar fasciitis; Translations: [Plantar fascial fibromatosis] 10-11-2021 Episodic Other connective tissue disease (1 source) Bursitis of right shoulder; Translations: [Bursitis of right shoulder] 02-03-2025 Episodic Other ear and sense organ disorders (1 source) Impacted cerumen in right ear; Translations: [Impacted cerumen, right ear] 02-16-2025 Episodic Other liver diseases (2 sources) Lesion of liver; Translations: [Liver disease, unspecified] 08-15-2023 Chronic Other lower respiratory disease (2 sources) Cough; Translations: [Acute cough] 05-07-2024 Episodic Other lower respiratory disease (2 sources) Cough; Translations: [Acute cough] 06-23-2025 Episodic Other nervous system disorders (2 sources) Carpal tunnel syndrome, left upper limb; Translations: [Carpal tunnel syndrome, left upper limb] Onset: 10-12-2018 Chronic Other nervous system disorders (2 sources) Carpal tunnel syndrome, right upper limb; Translations: [Carpal tunnel syndrome, right upper limb] Onset: 09-28-2018 Chronic Other nervous system disorders (8 sources) Carpal tunnel syndrome; Translations: [Carpal tunnel syndrome, right upper limb] 06-06-2018 Chronic Other nervous system disorders (5 sources) Carpal tunnel syndrome of right wrist; Translations: [Carpal tunnel syndrome, right upper limb] 06-06-2018 Chronic Other nervous system disorders (1 source) Other chronic pain; Translations: [Chronic pain of left knee] Onset: 05-28-2025 Chronic Other non-traumatic joint disorders (15 sources) Pain in right knee; Translations: [Pain in joint, lower leg] Onset: 09-26-2018 09-26-2018 Episodic Other non-traumatic joint disorders (2 sources) Pain in left shoulder; Translations: [Pain in joint, shoulder region] Onset: 06-28-2025 06-28-2025 Episodic Other non-traumatic joint disorders (1 source) Pain in left knee; Translations: [Chronic pain of left knee] Onset: 05-28-2025 Episodic Other nutritional; endocrine; and metabolic disorders (2 sources) Metabolic syndrome; Translations: [Metabolic syndrome] Onset: 10-12-2018 Chronic Other nutritional; endocrine; and metabolic disorders (2 sources) Obesity, unspecified; Translations: [Obesity, unspecified] Onset: 09-28-2018 Chronic Other nutritional; endocrine; and metabolic disorders (2 sources) Other obesity due to excess calories; Translations: [Other obesity due to excess calories] Onset: 10-12-2018 Chronic Other nutritional; endocrine; and metabolic disorders (2 sources) Body mass index (BMI) 38.0-38.9, adult; Translations: [Body mass index (BMI) 38.0-38.9, adult] Onset: 10-12-2018 Chronic Other nutritional; endocrine; and metabolic disorders (20 sources) Metabolic syndrome X; Translations: [Metabolic syndrome] 10-11-2021 Chronic Other nutritional; endocrine; and metabolic disorders (14 sources) Obesity; Translations: [Other obesity due to excess calories] Onset: 12-12-2017 12-12-2017 Chronic Other nutritional; endocrine; and metabolic disorders (2 sources) Obesity caused by energy imbalance; Translations: [Other obesity due to excess calories] Onset: 12-12-2017 12-12-2017 Chronic Other nutritional; endocrine; and metabolic disorders (20 sources) Body mass index 40+ - severely obese; Translations: [Morbid (severe) obesity due to excess calories] Onset: 12-12-2017 06-26-2023 Chronic Other skin disorders (2 sources) Hirsutism; Translations: [Hirsutism] Onset: 10-12-2018 Episodic Other skin disorders (20 sources) Hirsutism; Translations: [Hirsutism] 10-11-2021 Episodic Other upper respiratory infections (2 sources) Sore throat symptom; Translations: [Acute pharyngitis, unspecified] Episodic Rheumatoid arthritis and related disease (20 sources) Rheumatoid arthritis of multiple joints; Translations: [Rheumatoid arthritis, unspecified] Onset: 06-01-2021 06-01-2021 Chronic Superficial injury; contusion (13 sources) Contusion of face; Translations: [Contusion of other part of head, initial encounter] 05-14-2021 Episodic Unclassified (2 sources) Patient encounter status 12-25-2024 Unclassified (3 sources) Chronic pain of left knee 05-28-2025 Unclassified (1 source) Obesity, Class III, BMI 40-49.9 (morbid obesity) (HCC); Translations: [Obesity, Class III, BMI 40-49.9 (morbid obesity) (HCC)] Onset: 06-26-2023 Unclassified (1 source) Acute cough; Translations: [Acute cough] Onset: 06-23-2025 Viral infection (2 sources) Viral disease; Translations: [Viral infection, unspecified] Onset: 06-23-2025 06-23-2025 Episodic Past or Other Problems Problem Classification Problem Date Documented Da te Episodic/Chronic Acquired foot deformities (20 sources) Bunion; Translations: [Bunion of right foot] Onset: 06-26-2023 06-26-2023 Episodic Nonmalignant breast conditions (20 sources) Breast lump; Translations: [Unspecified lump in unspecified breast] Onset: 04-01-2014 10-11-2021 Episodic Other and unspecified benign neoplasm (20 sources) Hemangioma of liver; Translations: [Hemangioma of intra-abdominal structures] Onset: 09-18-2023 09-18-2023 Episodic Other and unspecified benign neoplasm (1 source) Hemangioma of intra-abdominal structures; Translations: [Hemangioma of liver] Onset: 09-18-2023 Episodic Other connective tissue disease (20 sources) Fibromyalgia; Translations: [Fibromyalgia] Onset: 06-01-2021 06-01-2021 Episodic Other connective tissue disease (1 source) Fibromyalgia; Translations: [Fibromyalgia] Onset: 06-26-2023 Episodic Other connective tissue disease (1 source) Bursitis of right shoulder; Translations: [Bursitis of right shoulder] Onset: 02-03-2025 Episodic Other ear and sense organ disorders (1 source) Impacted cerumen, right ear; Translations: [Impacted cerumen of right ear] Onset: 02-16-2025 Episodic Other non-traumatic joint disorders (20 sources) Multiple joint pain; Translations: [Pain in unspecified joint] Onset: 09-26-2018 09-26-2018 Episodic Other non-traumatic joint disorders (3 sources) Pain in right shoulder; Translations: [Pain in joint, shoulder region] Onset: 02-03-2025 02-03-2025 Episodic Other screening for suspected conditions (not mental disorders or infectious disease) (20 sources) Patient encounter status; Translations: [Encounter for screening mammogram for malignant neoplasm of breast] Onset: 03-17-2016 Resolved: 03-31-2016 Episodic Other skin disorders (20 sources) Apocrine gland cyst; Translations: [Other eccrine sweat disorders] Onset: 03-31-2016 12-12-2017 Episodic Pancreatic disorders (not diabetes) (20 sources) Cyst of pancreas; Translations: [Cyst of pancreas] Onset: 09-18-2023 09-18-2023 Episodic Unclassified (2 sources) Acute pain of right shoulder 02-03-2025 Results Test Name Value Interpretation Reference Range Facility PT D/C Summary (1)on 025 PT D/C Summary (1) [facility] Physical Therapy [address] [place] [address] / REHABILITATION SERVICES DISCHARGE SUMMARY MR#: [id number] Acct: [id number] Name: KATE TATUM Rep #: [id number] : 1955 69 From: Michael Breen DPT, OCS, CSCS Referring Dr.: CHRISTEL Vargas Status: REG R CR Insurance: [facility] Discharge Summary D/C summary: It has been my pleasure to treat KATE COFFEY referred by CHRISTEL Vargas, with the diagnosis of OA L knee for a total of 16 visit(s). Discharge Date: 08/19/25 Please see the following information for a summary of their discharge status. Subjective Subjective: L knee is a struggle. Some days are great. Monday after noon it started hurting. pain monday was 4.10 and hurt all after noon. no idea what is making jeff better or worse. Doing exercisees at home. Water is treating her well. It helps, rest of body feels really good. Back to [facility] and may need knee replacement or gel shots or injection. Takes prednisone as needed for knee, not much lately. Pain L knee: Pain Intensity (Out of 10): 7 Overall Improvement % Improvement: 50 Objective Objective/Function: -2 to 1010 AROM L knee adn 0-122 R knee. Walks without antalgia today but tightness with butt kicks. Goals Goal 1:: I appropriate water/HEP to limit future problems with OA and pain Goal Progress: Goal Met Goal 2:: Pain in L knee 1/10 at worst adn 90% improved. Goal Progress: 50% to 04/24 Goal 3:: sleep without waking at night due to pain. Goal Progress: Goal Met Goal 4:: work consistently without increased pain Goal Progress: Progressing, kne worse Goal 5:: LEFS score 53 Goal Progress: Goal Met Plan Plan: d/c to I pool program 3x/week, HEP on in between days. D/C Information d/c sentence: If there are questions or concerns regarding this patient's physical therapy, please feel free to call me at [phone]. Thank you for the referral of this patient. Sincerely, Michael Breen, DPT, OCS, CSCS Balance/Gait/Functional tests Balance/Special Test Scores Lower Extremity Functional Score: 55 Improvement % Improvement: 50 08/19/25 1810 CC: CHRISTEL Vargas; Dr. Laurent Pagan MD EBG Signed Normal [facility] Re-Evaluation - PT (1)on Re-Evaluation - PT (1) [facility] [address] [place] [address]. [address] [place] [address] / REEVALUATION / MEDICARE RECERTIFICATION PHYSICAL THERAPY MR#: [id number] Acct: [id number] Name: KATE TATUM Rep #: [id number] : 1955 69 From: Michael Breen DPT, OCS, CSCS Referring Dr.: CHRISTEL Vargas Status:REG RCR Insurance: [facility] Re-Evaluation Intro: CHRISTEL Vargas, It has been my pleasure to treat KATE COFFEY over the last 8 visits for OA L knee. Please see the progress note below for an update on the physical therapy plan of care! Subjective Subjective: Doing betteer. I can stand up without as much pain, easier to stand. More eenergy. Working is going OK. Gets up every hour or so to walk. Dr moran this am and wants her to lose weight. Does not f/u with [facility] yet. Injections gel and surgery may be an option. Wants another round of pool therapy. Not sure she knows how to do this herself and does not really want more meds or surgery if she can avoid it. Signed [facility] Objective Objective/Function: LEFS slowly improving. Transfer out of chair without evidence of pain today. Walks without antalgia but feels 3/10 pain L knee. ROM WFL. heel and toe raises without a problem, marches with increase stiffness in knee. Current goals still appropriate for another 4 week POC with fair prognosis to gain I with management in pool. Plan Plan Plan: 2x/week for 4 more weeks until end Otober to progress LE strength, and general pool ex toward I for [employer] membership, work on knee ROM and funcitonal strength. Balance/Gait/Functional tests Balance/Special Test Scores Lower Extremity Functional Score: 47 Goals Goals Goal 1:: I appropriate water/HEP to limit future problems with OA and pain Goal Time Frame: 4-6 Weeks Goal Progress: Progressing Goal 2:: Pain in L knee 1/10 at worst adn 90% improved. Goal Time Frame: 4-6 Weeks Goal Progress: Progressing Goal 3:: sleep without waking at night due to pain. Goal Time Frame: 4-6 Weeks Goal Progress: not up with knees Goal 4:: work consistently without increased pain Goal Time Frame: 4-6 Weeks Goal Progress: Progressing Goal 5:: LEFS score 53 Goal Time Frame: 4-6 Weeks Goal Progress: Progressing Anticipated Interventions Anticipated Interventions Patient/Client Instruction: Educate patient on: Condition and Plan of Care For the Purpose of:: To decrease pain, To increase ROM, To improve nutrient delivery to tissue, To improve muscle performance and motor function and To increase tolerance to activity/condition/positio n Therapeutic Exercise to Include: Strength training, Flexibilty training, Gait and locomotor training, In an aquatic setting, Passive ROM and Active ROM For the Purpose of:: To decrease pain, To increase ROM, To improve nutrient delivery to tissue, To improve muscle performance and motor function, To increase tolerance to activity/condition/positio n, To improve ability of physical actions for home/community/work/leisur e and To improve gait and locomotor functions Re-Evaluation Ending Re-evaluation ending: Please do not hesitate to contact me at [phone] by phone or if you have questions or concerns regarding this new plan of care! Sincerely, RAGHAV RemyT, OCS, CSCS 07/17/25 1022 CC: CHRISTEL Vargas; Dr. Laurent Pagan MD EBG Signed For Medicare only, by signing this I certify the plan of care. __ Physicians Signature Date Normal [facility] Anion gap in Serum or Plasma Ordered By: Sabrina Moran on 07-15-2025 Anion gap [Moles/Vol] 14 mmol/L 5-15 [facility] BUN/creatinine ratioOrdered By: Sabrina Moran on 07-15-2025 Urea nitrogen/Creatinine [Mass ratio] 21.2 mg/mg High 10-20 [facility] Bilirubin, totalOrdered By: Sabrina Moran on 07-15-2025 Bilirubin [Mass/Vol] 0.48 mg/dL 0.00-1.30 [facility] Carbon dioxide, total [Moles /volume] in Central venous bloodOrdered By: Sabrina Moran on 07-15-2025 CO2 [Moles/Vol] 22.0 mmol/L 21.0-32.0 [facility] Chloride assayOrdered By: Christel Moran on 07-15-2025 Chloride [Moles/Vol] 102 mmol/L 98-108 [facility] Comprehensive Metabolic Prof ilon 07-15-2025 Albumin [Mass/Vol] 4.0 g/dL Normal 3.4-4.8 [facility] Comment on above: Performed By: #### L [id number] #### [facility] [address] [place], [address] Albumin/Globulin [Mass ratio] 1.4 {ratio} Normal 0.9-2.4 [facility] Comment on above: Performed By: #### L [id number] #### [facility] [address] [place], [address] ALK PHOS 67 U/L Normal 35-104 [facility] Comment on above: Performed By: #### L [id number] #### [facility] [address] [place], [address] ALT [Catalytic activity/Vol] 30 U/L Normal <=34 [facility] Comment on above: Performed By: #### L [id number] #### [facility] [address] [place], [address] AST [Catalytic activity/Vol] 25 U/L Normal <=31 [facility] Comment on above: Performed By: #### L [id number] #### [facility] [address] [place], [address] Bilirubin [Mass/Vol] 0.48 mg/dL Normal 0.00-1.30 [facility] Comment on above: Performed By: #### L [id number] #### [facility] [address] [place], [address] BUN/CRE 21.2 RATIO High 10-20 [facility] Comment on above: Performed By: #### L [id number] #### [facility] [address] [place], [address] Calcium [Mass/Vol] 9.6 mg/dL Normal 7.6-11.0 [facility] Comment on above: Performed By: #### L [id number] #### [facility] [address] [place], [address] Chloride [Moles/Vol] 102 mmol/L Normal 98-108 [facility] Comment on above: Performed By: #### L [id number] #### [facility] [address] [place], [address] CO2 [Moles/Vol] 22.0 mmol/L Normal 21.0-32.0 [facility] Comment on above: Performed By: #### L [id number] #### [facility] [address] [place], [address] Creatinine [Mass/Vol] 0.86 mg/dL Normal 0.70-1.20 [facility] Comment on above: Performed By: #### L [id number] #### [facility] [address] [place], [address] GAP 14 Normal 5-15 [facility] Comment on above: Performed By: #### L [id number] #### [facility] [address] [place], [address] GFR/1.73 sq M.predicted among non-blacks MDRD (S/P/Bld) [Vol rate/Area] 74 mL/min/{1.73_m2} Normal >60 [facility] Comment on above: Result Comment: mL/m in/1.73m2 CKD-EPI Creatinine Equation (2020) Performed By: #### L [id number] #### [facility] [address] [place], [address] Globulin (S) [Mass/Vol] 2.8 g/dL Normal 2.2-4.2 [facility] Comment on above: Performed By: #### L [id number] #### [facility] [address] [place], [address] Glucose [Mass/Vol] 126 mg/dL High 70-99 [facility] Comment on above: Performed By: #### L [id number] #### [facility] [address] [place], [address] Potassium [Moles/Vol] 4.4 mmol/L Normal 3.3-5.1 [facility] Comment on above: Performed By: #### L [id number] #### [facility] [address] [place], [address] Sodium [Moles/Vol] 138 mmol/L Normal 133-145 [facility] Comment on above: Performed By: #### L [id number] #### [facility] [address] [place], [address] T PROT 6.8 g/dL Normal 5.9-8.4 [facility] Comment on above: Performed By: #### L [id number] #### [facility] [address] [place], [address] Urea nitrogen [Mass/Vol] 18 mg/dL Normal 4-19 [facility] Comment on above: Performed By: #### L [id number] #### [facility] [address] [place], [address] Glomerular filtration rate ( GFR) estimation/1.73 sq m using serum, plasma, or whole bOrdered By: Sabrina Moran on 07-15-2025 GFR/1.73 sq M.predicted among non-blacks MDRD (S/P/Bld) [Vol rate/Area] 74 mL/min/{1.73_m2} >60 [facility] Comment on above: mL/min/1.73m2 CKD-EP I Creatinine Equation (2020) Laboratory - Chemistry and C hemistry - challengeOrdered By: Sabrina Moran on 07-15-2025 AST [Catalytic activity/Vol] 25 U/L <32 [facility] Potassium measurement (mass/ volume)Ordered By: Sabrina Moran on 07-15-2025 Potassium (Unsp spec) [Mass/Vol] 4.4 mmol/L 3.3-5.1 [facility] Serum creatinine measurement (mass/volume)Ordered By: Sabrina Moran on 07-15-2025 Creatinine [Mass/Vol] 0.86 mg/dL 0.70-1.20 [facility] Serum globulin measurementOr dered By: Sabrina Moran on 07-15-2025 Globulin (S) [Mass/Vol] 2.8 g/dL 2.2-4.2 [facility] Serum glucose measurement (m ass/volume)Ordered By: Sabrina Moran on 07-15-2025 Glucose [Mass/Vol] 126 mg/dL High 70-99 [facility] Serum or plasma alanine callahan otransferase (ALT) measurementOrdered By: Sabrina Moran on 07-15-2025 ALT [Catalytic activity/Vol] 30 U/L <35 [facility] Serum or plasma albumin shadia urement (mass/volume)Ordered By: Sabrina Moran on 07-15-2025 Albumin [Mass/Vol] 4.0 g/dL 3.4-4.8 [facility] Serum or plasma albumin/glob ulin mass ratioOrdered By: Sabrina Moran on 07-15-2025 Albumin/Globulin [Mass ratio] 1.4 {ratio} 0.9-2.4 [facility] Serum or plasma alkaline corie sphatase measurementOrdered By: Sabrina Moran on 07-15-2025 ALP [Catalytic activity/Vol] 67 U/L 35-104 [facility] Serum or plasma calcium shadia urement (mass/volume)Ordered By: Sabrina Morna on 07-15-2025 Calcium [Mass/Vol] 9.6 mg/dL 7.6-11.0 [facility] Serum or plasma urea nitroge n measurement (mass/volume)Ordered By: Sabrina Moran on 07-15-2025 Urea nitrogen [Mass/Vol] 18 mg/dL 4-19 [facility] Sodium levelOrdered By: Katharine Moran on 07-15-2025 Sodium [Moles/Vol] 138 mmol/L 133-145 [facility] Total proteinOrdered By: Delisa Moran on 07-15-2025 Protein [Mass/Vol] 6.8 g/dL 5.9-8.4 [facility] CNOVon 07-11-2025 CNOV Office Visit (FAMWS ) -- KATE TATUM ([id number]) 1955 F Date Time Provider Department 07/11/25 12:20 PM VANESSA [facility]BR[facility] During your visit today, we recorded the following information about you: Temperature Pulse Respiration Blood pressure 98 degrees 84/minute 18/minute 110/70 Weight 103.4 kg Vanessa Berg PA-C 07/11/2025 1:53 PM Signed Chief Complaint Patient presents with: Follow Up: Left leg edema and neuropathy HPI Kate Coffey is a 69 year old female who presents here today for recheck. Edema: - Notable improvement in edema; able to visualize patellae bilaterally. - Recent increase in spironolactone dosage. - Kate is engaging in pool therapy. - Recent blood work reportedly normal. - Increased urinary frequency; Kate is maintaining hydration. - Kate is consuming bananas and potatoes to maintain potassium levels; prefers dietary intake over supplements. Neuropathy: - Previously unable to perceive vibrations; now Kate reports improved sensation. - Able to feel sharp objects when ambulating. - Kate has an upcoming podiatry appointment in July. Diabetes: - Recent elevated glucose level attributed to consuming a slushie at a class reunion; Kate typically does not consume alcohol. Past medical history, appointments, medications, allergies reviewed. 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 Essential hypertension Fibromyalgia 06/01/2021 Hemangioma of liver 09/18/2023 Right lob: MRI 09/2023 Hirsutism Migraine Mixed hyperlipidemia Obesity, Class III, BMI 40-49.9 (morbid obesity) ([facility]) 12/12/2017 Pancreatic cyst ([facility]) 09/18/2023 MRI: 09/2023 needs repeat imaging in 09/2024 Plantar fasciitis Polyarthralgia 09/26/[address] Montenegro Rheumatoid arthritis involving multiple sites ([facility]) 06/01/2021 Dr. Quigley Well adult exam 12/02/2020 Last done: 02/27/2019 Previous Surgical History PAST SURGICAL HISTORY Procedure Laterality Date CARPAL TUNNEL Right 09/28/2018 COLONOSCOPY 02/2016 repeat 5 years COLONOSCOPY FLX DX W/COLLJ SPEC WHEN PFRMD 05/09/2013 Colonoscopy COLONOSCOPY FLX DX W/COLLJ SPEC WHEN PFRMD 06/30/2021 PAST SURGICAL HISTORY OF heel spur PAST SURGICAL HISTORY OF wisdom teeth Family History FAMILY HISTORY Problem Relation Age of Onset other (meningitis) Mother encephalitis other (bladder cancer) Father Diabetes Sister Heart Sister AICD Detached Retina Brother Diabetes Brother Colon Polyps Brother COPD Brother Diabetes Maternal Grandmother Heart Maternal Grandmother Diabetes Paternal Grandmother Diabetes Paternal Grandfather Patient Allergies ALLERGIES Allergen Reactions Dolobid [Diflunisal] Rash Current Medications Current Outpatient Medications on File Prior to Visit Medication Sig lisinopril (PRINIVIL) 10 mg tablet Take 1 tablet by mouth once daily. predniSONE (DELTASONE) 10 mg tablet Take 1 tablet by mouth every 6 hours as needed (arthritis flare). atorvastatin (LIPITOR) 10 mg tablet Take 1 tablet by mouth once daily. spironolactone (ALDACTONE) 25 mg tablet Take 1 tablet by mouth once daily. albuterol HFA (PROVENTIL HFA, VENTOLIN HFA) 90 mcg/actuation inhaler Inhale 2 puffs as instructed every 6 hours as needed for wheezing/shortness of breath. hydrOXYchloroQUINE (PLAQUENIL) 200 mg tablet Take by mouth once daily. mometasone (NASONEX) 50 mcg/actuation nasal spray Use 2 Sprays in the nose once daily. Rinse mouth after use. MAGNESIUM ORAL Take by mouth as directed. BIOTIN ORAL Take by mouth. DULoxetine (CYMBALTA) 30 mg capsule Take 30 mg by mouth once daily. METHOTREXATE ORAL Take 5 mg by mouth. Take 1 tablet weekly calcium citrate-vitamin D3 (CALCIUM CITRATE + D) 315-200 mg-unit tab Take 1 tablet by mouth twice daily with meals. ascorbic acid, vitamin C, (VITAMIN C) 500 mg tablet Take 500 mg by mouth once daily. aspirin, enteric coated (ASPIRIN, ENTERIC COATED) 81 mg EC tablet Take 81 mg by mouth once daily. multivitamin tablet Take 1 tablet by mouth once daily. acetaminophen (TYLENOL) 500 mg tablet Take 500 mg by mouth daily at bedtime. TURMERIC PO Take by mouth. (Patient not taking: Reported on 06/27/2025) folic acid 1 mg tablet Take 1 mg by mouth once daily. Take 2 tablets daily (Patient not taking: Reported on 12/25/2024) No current (more content not included)... Normal [facility] Basic metabolic 2000 panelon 07-09-2025 Anion gap [Moles/Vol] 12 mmol/L Normal 8-15 [facility] Comment on above: Order Comment: Speci men Type: BLOOD SPECIMENOrdering Facility: [facility] Address: [address] [place] [address] Performed By: #### 2 4321-2 ####[facility] LABIA [id number] [address] [address] [place] Calcium [Mass/Vol] 9.2 mg/dL Normal 8.5-10.2 [facility] Comment on above: Order Comment: Speci men Type: BLOOD SPECIMENOrdering Facility: [facility] Address: [address] [place] [address] Performed By: #### 2 4321-2 ####[facility] LABCLIA [id number] [place] [id number] [place] Chloride [Moles/Vol] 100 mmol/L Normal 98-107 [facility] Comment on above: Order Comment: Speci men Type: BLOOD SPECIMENOrdering Facility: [facility] Address: [address] [place] [address] Performed By: #### 2 4321-2 ####[facility] LABCLIA [id number] [place] [id number] [place] CO2 [Moles/Vol] 26 mmol/L Normal 22-30 [facility] Comment on above: Order Comment: Speci men Type: BLOOD SPECIMENOrdering Facility: [facility] Address: [address] [place] [address] Performed By: #### 2 4321-2 ####[facility] LABIA [id number] [place] [address] [place] Creatinine [Mass/Vol] 0.74 mg/dL Normal 0.58-0.96 [facility] Comment on above: Order Comment: Speci men Type: BLOOD SPECIMENOrdering Facility: [facility] Address: [address] [place] [address] Performed By: #### 2 4321-2 ####[facility] LABCLIA [id number] [place] [id number] [place] eGFRcr SerPlBld CKD-EPI 2020 88 mL/min/1.73m??? Normal >=60 [facility] Comment on above: Order Comment: Speci men Type: BLOOD SPECIMENOrdering Facility: [facility] Address: [address] [place] [address] Result Comment: Marni mated Glomerular Filtration Rate (eGFR) is calculated using the 2020 CKD-EPI creatinine equation. This equation utilizes serum creatinine, sex, and age as parameters. The creatinine assay has traceable calibration to isotope dilution-mass spectrometry. Refer to KDIGO guidelines for clinical interpretation. In patients with unstable renal function, e.g. those with acute kidney injury, the eGFR may not accurately reflect actual GFR. Performed By: #### 2 4321-2 ####[facility] LABCLIA [id number] [place] [address] [place] Glucose [Mass/Vol] 121 mg/dL High 74-99 [facility] Comment on above: Order Comment: Speci men Type: BLOOD SPECIMENOrdering Facility: [facility] Address: [address] [place] [address] Result Comment: The [place] [employer] (ADA) provides guidance for cutoff values for fasting glucose and random glucose. The ADA defines fasting as no caloric intake for at least 8 hours. Fasting plasma glucose results between 100 to 125 mg/dL indicate increased risk for diabetes (prediabetes). Fasting plasma glucose results greater than or equal to 126 mg/dL meet the criteria for diagnosis of diabetes. In the absence of unequivocal hyperglycemia, results should be confirmed by repeat testing. In a patient with classic symptoms of hyperglycemia or hyperglycemic crisis, random plasma glucose results greater than or equal to 200 mg/dL meet the criteria for diagnosis of diabetes. Reference: Standards of Medical Care in Diabetes 2016, [place] [employer]. Diabetes Care. 2016.39(Suppl 1). Performed By: #### 2 4321-2 ####[facility] LABCLIA [id number] [place] [address] [place] Potassium [Moles/Vol] 4.1 mmol/L Normal 3.7-5.1 [facility] Comment on above: Order Comment: Speci men Type: BLOOD SPECIMENOrdering Facility: [facility] Address: [address] [place] [address] Performed By: #### 2 4321-2 ####[facility] LABIA [id number] [place] [address] [place] Sodium [Moles/Vol] 138 mmol/L Normal 136-144 [facility] Comment on above: Order Comment: Speci men Type: BLOOD SPECIMENOrdering Facility: [facility] Address: [address] [place] [address] Performed By: #### 2 4321-2 ####[facility] LABCLIA [id number] [address] [place] [address] [place] Urea nitrogen [Mass/Vol] 17 mg/dL Normal 7-21 [facility] Comment on above: Order Comment: Speci men Type: BLOOD SPECIMENOrdering Facility: [facility] Address: [address] [place] [address] Performed By: #### 2 4321-2 ####[facility] LABCLIA [id number] [address] [place] [address] [place] Basic metabolic 2000 panelon 07-05-2025 Anion gap [Moles/Vol] 15 mmol/L Normal 8-15 [facility] Comment on above: Order Comment: Speci men Type: BLOOD SPECIMENOrdering Facility: [facility] Address: [address] [place] [address] Performed By: #### 2 4321-2 ####[facility] LABCLIA [id number] [place] [id number] [place] Calcium [Mass/Vol] 9.6 mg/dL Normal 8.5-10.2 [facility] Comment on above: Order Comment: Speci men Type: BLOOD SPECIMENOrdering Facility: [facility] Address: [address] [place] [address] Performed By: #### 2 4321-2 ####[facility] LABCLIA [id number] [place] [id number] [place] Chloride [Moles/Vol] 101 mmol/L Normal 98-107 [facility] Comment on above: Order Comment: Speci men Type: BLOOD SPECIMENOrdering Facility: [facility] Address: [address] [place], [place] [address] Performed By: #### 2 4321-2 ####[facility] LABCLIA [id number] [address] [address] [place] CO2 [Moles/Vol] 22 mmol/L Normal 22-30 [facility] Comment on above: Order Comment: Speci men Type: BLOOD SPECIMENOrdering Facility: [facility] Address: [address] [place] [address] Performed By: #### 2 4321-2 ####[facility] LABIA [id number] [place] [id number] [place] Creatinine [Mass/Vol] 0.73 mg/dL Normal 0.58-0.96 [facility] Comment on above: Order Comment: Speci men Type: BLOOD SPECIMENOrdering Facility: [facility] Address: [address] [place] [address] Performed By: #### 2 4321-2 ####[facility] LABIA [id number] [place] [address] [place] eGFRcr SerPlBld CKD-EPI 2020 90 mL/min/1.73m??? Normal >=60 [facility] Comment on above: Order Comment: Speci men Type: BLOOD SPECIMENOrdering Facility: [facility] Address: [address] [place] [address] Result Comment: Marni mated Glomerular Filtration Rate (eGFR) is calculated using the 2020 CKD-EPI creatinine equation. This equation utilizes serum creatinine, sex, and age as parameters. The creatinine assay has traceable calibration to isotope dilution-mass spectrometry. Refer to KDIGO guidelines for clinical interpretation. In patients with unstable renal function, e.g. those with acute kidney injury, the eGFR may not accurately reflect actual GFR. Performed By: #### 2 4321-2 ####[facility] LABIA [id number] [place] [id number] [place] Glucose [Mass/Vol] 161 mg/dL High 74-99 [facility] Comment on above: Order Comment: Speci men Type: BLOOD SPECIMENOrdering Facility: [facility] Address: [address] [place] [address] Result Comment: The [place] [employer] (ADA) provides guidance for cutoff values for fasting glucose and random glucose. The ADA defines fasting as no caloric intake for at least 8 hours. Fasting plasma glucose results between 100 to 125 mg/dL indicate increased risk for diabetes (prediabetes). Fasting plasma glucose results greater than or equal to 126 mg/dL meet the criteria for diagnosis of diabetes. In the absence of unequivocal hyperglycemia, results should be confirmed by repeat testing. In a patient with classic symptoms of hyperglycemia or hyperglycemic crisis, random plasma glucose results greater than or equal to 200 mg/dL meet the criteria for diagnosis of diabetes. Reference: Standards of Medical Care in Diabetes 2016, [place] [employer]. Diabetes Care. 2016.39(Suppl 1). Performed By: #### 2 4321-2 ####[facility] LABIA [id number] [place] [address] [place] Potassium [Moles/Vol] 4.6 mmol/L Normal 3.7-5.1 [facility] Comment on above: Order Comment: Speci men Type: BLOOD SPECIMENOrdering Facility: [facility] Address: [address] [place] [address] Performed By: #### 2 4321-2 ####[facility] LABIA [id number] [place] [id number] [place] Sodium [Moles/Vol] 138 mmol/L Normal 136-144 [facility] Comment on above: Order Comment: Radhai men Type: BLOOD SPECIMENOrdering Facility: [facility] Address: [address] [place] [address] Performed By: #### 2 4321-2 ####[facility] LABIA [id number] [place] [id number] [place] Urea nitrogen [Mass/Vol] 19 mg/dL Normal 7-21 [facility] Comment on above: Order Comment: Speci men Type: BLOOD SPECIMENOrdering Facility: [facility] Address: [address] [place] [address] Performed By: #### 2 4321-2 ####[facility] LABIA [id number] [place] [id number] [place] CNOVon 06-28-2025 CNOV Office Visit ([facility]) -- KATE TATUM ([id number]) 1955 F Date Time Provider Department 06/28/25 3:00 PM GREGORY NINO WOCHANCE During your visit today, we recorded the following information about you: Temperature Pulse Respiration Blood pressure 98.3 degrees 94/minute 18/minute 136/82 Weight 103.7 kg Gregory Nino MD 06/28/2025 3:25 PM Signed [facility] Subjective Kate Coffey is a 69 year old female. Patient presents with: left shoulder pain: X 1 day Shoulder pain: Duration: started last night Location: Lateral left shoulder Character: sharp, tight Radiation: No. Aggravating: limited ability to move, not bothered by neck movement. May have been triggered having her shoulder squeezed in a chair during a pedicure Relieving: Pain relievers: Prednisone. Currently off Plaquenil for URI and elevated liver enzymes Associated: History of RA, had similar pain in the right shoulder in January Pertinent negatives: Denies numbness, weakness, known injury, fever Review of Systems Objective BP 136/82 Pulse 94 Temp 36.8 ?C (98.3 ?F) (Tympanic) Resp 18 Wt 103.7 kg (228 lb 9.9 oz) SpO2 99% BMI 43.73 kg/m? Physical Exam Constitutional: General: She is not in acute distress. Cardiovascular: Rate and Rhythm: Normal rate and regular rhythm. Pulmonary: Effort: Pulmonary effort is normal. Breath sounds: Normal breath sounds. Musculoskeletal: Left elbow: No swelling. Normal range of motion. No tenderness. Cervical back: Neck supple. No tenderness. Comments: SHOULDER: left compared to right. No deformity or swelling. Palpation of clavicle non-tender, AC joint tender, glenohumeral joint tender anterior joint. ROM: limited abduction or flexion due to pain. Lymphadenopathy: Cervical: No cervical adenopathy. Neurological: Mental Status: She is alert. {ASSESSMENT/PLAN: 1. Acute pain of left shoulder - ICD9: 719.41, ICD10: M25.512 (primary diagnosis) 2. Rheumatoid arthritis involving multiple sites, unspecified whether rheumatoid factor present (HCC) - ICD9: 714.0, ICD10: M06.9 She is here requesting refill of prednisone which she has on hand for as needed use but only has a few left for the weekend. She saw her cooler servicer earlier this week. - PREDNISONE 10 MG TABLET Follow-up with worsening symptoms or failure to improve. Gregory Nino MD Differential Diagnoses - Left shoulder bursitis/rheumatoid arthritis is more likely for the following reason(s): suggested by HANDP - Fracture or dislocation is less likely for the following reason(s): HANDP not suggestive Additional Tests or Interventions The following testing was considered but ultimately not selected after discussion with patient/family: X-ray deferred without injury but can be performed if symptoms or not improving. Procedures Allergies As of Date: 06/28/2025 Noted Allergy Reaction DOLOBID (DIFLUNISAL) 08/25/2005 2 - Rash Date Reviewed: 06/28/2025 Reviewed by: Catie Banda LPN - Fully Assessed Reason for Visit: left shoulder pain [Other] Cmt: X 1 day Primary Visit Diagnosis:Acute pain of left shoulder [M25.512] Other Visit Diagnosis:Rheumatoid arthritis involving multiple sites, unspecified whether rheumatoid factor present (HCC) [M06.9] Order(s):predniSONE (DELTASONE) 10 mg tabletTake 1 tablet by mouth every 6 hours as needed (arthritis flare).Disp: 30 tabletRfl: 0 Prescriptions as of 06/28/2025 - predniSONE (DELTASONE) 10 mg tablet Take 1 tablet by mouth every 6 hours as needed (arthritis flare). - atorvastatin (LIPITOR) 10 mg tablet Take 1 tablet by mouth once daily. - iv contrast (will be provided with radiology test) MRI PANC/OTONIEL Inject, intravenously, once for 1 dose. No IV access, insert saline lock prior to the beginning of sedation, infusion, injection of imaging exam. Discontinue saline lock post exam. If Pt. has a central line or IVAD, may access for administration according to line specific nursing protocol. Once exam is complete flush line and de-access according to line specific nursing protocol in the MR contrast administration guidelines link. - spironolactone (ALDACTONE) 25 mg tablet Take 1 tablet by mouth once daily. - TURMERIC PO Take by mouth. - albuterol HFA (PROVENTIL HFA, VENTOLIN HFA) 90 mcg/actuation inhaler Inhale 2 puffs as instructed every 6 hours as needed for wheezing/shortness of breath. - benzonatate (TESSALON PERLE) 100 mg capsule Take 1 capsule by mouth three times a day as needed for cough for up to 7 days. - hydrOXYchloroQUINE (PLAQUENIL) 200 mg tablet Take by mouth once daily. - lisinopril (PRINIVIL) 10 mg tablet Take 1 tablet by mouth once daily. - mometasone (NASONEX) 50 mcg/actuation nasal spray Use 2 Sprays in the nose once daily. Rinse mouth after use. - MAGNESIUM ORAL Take by mouth as directed. (more content not included)... Normal [facility] Bacteria Ur Culton Bacteria identified Cx Nom (U) ORGANISM ID: 1 10,000 -<50,000 CFU/ml Normal urogenital fanta Normal [facility] Comment on above: Performed By: #### 6 30-4 ####[facility] LABCLIA [id number] [place] [address] [place] Basic metabolic 2000 panelon 06-27-2025 Anion gap [Moles/Vol] 13 mmol/L Normal 8-15 [facility] Comment on above: Order Comment: Speci men Type: BLOOD SPECIMENOrdering Facility: [facility] Address: [address] [place] [address] Performed By: #### 2 4321-2 ####[facility] LABIA [id number] [place] [address] [place] Calcium [Mass/Vol] 9.6 mg/dL Normal 8.5-10.2 [facility] Comment on above: Order Comment: Speci men Type: BLOOD SPECIMENOrdering Facility: [facility] Address: [address] [place] [address] Performed By: #### 2 4321-2 ####[facility] LABCLIA [id number] [place] [id number] [place] Chloride [Moles/Vol] 103 mmol/L Normal 98-107 [facility] Comment on above: Order Comment: Speci men Type: BLOOD SPECIMENOrdering Facility: [facility] Address: [address] [place] [address] Performed By: #### 2 4321-2 ####[facility] LABCLIA [id number] [place] [id number] [place] CO2 [Moles/Vol] 25 mmol/L Normal 22-30 [facility] Comment on above: Order Comment: Speci men Type: BLOOD SPECIMENOrdering Facility: [facility] Address: [address] [place] [address] Performed By: #### 2 4321-2 ####[facility] LABCLIA [id number] [place] [address] [place] Creatinine [Mass/Vol] 0.75 mg/dL Normal 0.58-0.96 [facility] Comment on above: Order Comment: Speci men Type: BLOOD SPECIMENOrdering Facility: [facility] Address: [address] [place] [address] Performed By: #### 2 4321-2 ####[facility] LABIA [id number] [place] [address] [place] eGFRcr SerPlBld CKD-EPI 2020 87 mL/min/1.73m??? Normal >=60 [facility] Comment on above: Order Comment: Speci men Type: BLOOD SPECIMENOrdering Facility: [facility] Address: [address] [place] [address] Result Comment: Marni mated Glomerular Filtration Rate (eGFR) is calculated using the 2020 CKD-EPI creatinine equation. This equation utilizes serum creatinine, sex, and age as parameters. The creatinine assay has traceable calibration to isotope dilution-mass spectrometry. Refer to KDIGO guidelines for clinical interpretation. In patients with unstable renal function, e.g. those with acute kidney injury, the eGFR may not accurately reflect actual GFR. Performed By: #### 2 4321-2 ####[facility] [id number] [place] [address] [place] Glucose [Mass/Vol] 91 mg/dL Normal 74-99 [facility] Comment on above: Order Comment: Radhai men Type: BLOOD SPECIMENOrdering Facility: [facility] Address: [address] [place] [address] Result Comment: The [place] Diabetes [employer] (ADA) provides guidance for cutoff values for fasting glucose and random glucose. The ADA defines fasting as no caloric intake for at least 8 hours. Fasting plasma glucose results between 100 to 125 mg/dL indicate increased risk for diabetes (prediabetes). Fasting plasma glucose results greater than or equal to 126 mg/dL meet the criteria for diagnosis of diabetes. In the absence of unequivocal hyperglycemia, results should be confirmed by repeat testing. In a patient with classic symptoms of hyperglycemia or hyperglycemic crisis, random plasma glucose results greater than or equal to 200 mg/dL meet the criteria for diagnosis of diabetes. Reference: Standards of Medical Care in Diabetes 2016, [place] [employer]. Diabetes Care. 2016.39(Suppl 1). Performed By: #### 2 4321-2 ####[facility] LABIA [id number] [place] [address] [place] Potassium [Moles/Vol] 4.2 mmol/L Normal 3.7-5.1 [facility] Comment on above: Order Comment: Rolando men Type: BLOOD SPECIMENOrdering Facility: [facility] Address: [address] [place] [address] Performed By: #### 2 4321-2 ####[facility] [id number] [place] [address] [place] Sodium [Moles/Vol] 141 mmol/L Normal 136-144 [facility] Comment on above: Order Comment: Rolando men Type: BLOOD SPECIMENOrdering Facility: [facility] Address: [address] [place] [address] Performed By: #### 2 4321-2 ####[facility] LABCLIA [id number] [place] [id number] [place] Urea nitrogen [Mass/Vol] 14 mg/dL Normal 7-21 [facility] Comment on above: Order Comment: Speci men Type: BLOOD SPECIMENOrdering Facility: [facility] Address: [address] [place] [id number] Performed By: #### 2 4321-2 ####[facility] LABCLIA [id number] [place] [id number] [facility] CNOVon 06-27-2025 CNOV Office Visit (FAMPWS ) -- KATE TATUM ([id number]) 1955 F Date Time Provider Department 06/27/25 12:00 PM VANESSA BERG During your visit today, we recorded the following information about you: Temperature Pulse Respiration Blood pressure 97.3 degrees 75/minute 18/minute 110/76 Weight Height 103.9 kg 1.54 m Vanessa Berg PA-C 06/27/2025 1:42 PM Signed Kate Coffey is a 69 year old female here for a Medicare wellness visit. Medicare Health Risk Assessment General Health Good Exercise: Minutes/Day 10 min Exercise: Days/Week 6 days Alcohol: Daily Use Monthly or less Alcohol: Drinks/Day 1 or 2 Alcohol: 6 or more drinks Never Feel off balance sometimes Concerns: Teeth/Dentures no Concerns: Sexual function Low desire Troubled by feelings sometimes Frequency: Eating healthy diet yes ADLs requiring help no Safety precautions in home/vehicle no Smoke, vape, chews tobacco no Difficulty hearing no Difficulty seeing no Current Providers Specialists: I have reviewed specialist-related care of the patient in the medical record. Medical/Family history review Reviewed and updated problem list, medical/surgical/family/so cial history, medications, and allergies. Opioid use review Opioid Medications (last 90 days) No data to display Anxiety/Depression screening PHQ-9 Score: 5 (Mild Depression) GABRIELA-7 Score: 4 (Minimal Anxiety) Recommendation: continuing current treatment plan Cognitive screening Mini Cog Score: 5 Cognitive screening reviewed and No further action needed (score 3-5). Functional Observation Was the patient's Timed Up AND Go test unsteady or >= 12 seconds? No Advance Care Planning Patient did not wish or was not able to name a surrogate decision maker or provide an advance care plan Measurements BP 110/76 (BP Site: Left Arm, BP Position: Sitting, BP Cuff Size: Large Adult) Pulse 75 Temp 36.3 ?C (97.3 ?F) Resp 18 Ht 154 cm (5' 0.63) Wt 103.9 kg (229 lb) SpO2 95% BMI 43.80 kg/m? Vision Screening: Follows with optometry/ophthalmology Assessment/Plan Medicare annual wellness visit, subsequent (Z00.00) - Counseled on healthy diet and regular exercise - Fall avoidance information provided - Personalized prevention plan provided Chief Complaint Patient presents with: Yearly Exam HPI Kate Coffey is a 69 year old female who presents here today for extensive exam. Patient with history of DM2, HTN, HLP, RA and those as below. Lower Extremity Edema: - Kate noticed edema in the feet this week; describes feet as swollen. - Sensation of tightness in legs, similar to wearing compression socks, x2 months. - Kate has no previous episodes of edema. - Kate has no increase in dietary sodium intake. Earwax Impaction: - Recent earwax impaction in February, treated at urgent care with ear canal cleaning. - Kate reports hearing is currently okay. Pancreatic Cyst: - Kate is due for another MRI of the pancreatic cyst in September. Fibromyalgia: - Chronic condition; Kate experiences occasional cough attributed to fibromyalgia. Rheumatoid Arthritis: - Chronic condition; Kate was previously on methotrexate but discontinued due to elevated liver enzymes. Past medical history, appointments, medications, allergies reviewed. 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 Essential hypertension Fibromyalgia 06/01/2021 Hemangioma of liver 09/18/2023 Right lob: MRI 09/2023 Hirsutism Migraine Mixed hyperlipidemia Obesity, Class III, BMI 40-49.9 (morbid obesity) ([facility]) 12/12/2017 Pancreatic cyst ([facility]) 09/18/2023 MRI: 09/2023 needs repeat imaging in 09/2024 Plantar fasciitis Polyarthralgia 09/26/[address] Montenegro Rheumatoid arthritis involving multiple sites ([facility]) 06/01/2021 Dr. Quigley Well adult exam 12/02/2020 Last done: 02/27/2019 Previous Surgical History PAST SURGICAL HISTORY Procedure Laterality Date CARPAL TUNNEL Right 09/28/2018 COLONOSCOPY 02/2016 repeat 5 years COLONOSCOPY FLX DX W/COLLJ SPEC WHEN PFRMD 05/09/2013 Colonoscopy COLONOSCOPY FLX DX W/COLLJ SPEC WHEN PFRMD 06/30/2021 PAST SURGICAL HISTORY OF heel spur PAST SURGICAL HISTORY OF wisdom teeth Family History FAMILY HISTORY Problem Relation Age of Onset other (meningitis) Mother encep (more content not included)... Normal [facility] Urinalysis complete panel (U )on 06-27-2025 Bacteria LM.HPF (Urine sed) [#/Area] Negative Normal Negative [facility] Comment on above: Order Comment: Speci men Type: URINE SPECIMENOrdering Facility: [facility] Address: [address] [place] [address] Performed By: #### 2 4356-8 ####[facility] LABCLIA [id number] [place] [address] [place] Bilirubin Ql (U) Negative Normal Negative [facility] Comment on above: Order Comment: Speci men Type: URINE SPECIMENOrdering Facility: [facility] Address: [address] [place] [address] Performed By: #### 2 4356-8 ####[facility] LABCLIA [id number] [place] [address] [place] CALCIUM OXALATE CRYSTALS (UA) Many Abnormal None Seen [facility] Comment on above: Order Comment: Speci men Type: URINE SPECIMENOrdering Facility: [facility] Address: [address] [place] [address] Performed By: #### 2 4356-8 ####[facility] LABCLIA [id number] [address], [place] [address] [place] Clarity (Unsp spec) Clear Normal Clear [facility] Comment on above: Order Comment: Speci men Type: URINE SPECIMENOrdering Facility: [facility] Address: [address] [place] [address] Performed By: #### 2 4356-8 ####[facility] LABCLIA [id number] [place] [address] [place] Color (U) Yellow Normal Yellow [facility] Comment on above: Order Comment: Speci men Type: URINE SPECIMENOrdering Facility: [facility] Address: [address] [place] [address] Performed By: #### 2 4356-8 ####[facility] LABIA [id number] [place] [id number] [place] Epithelial cells LM.HPF (Urine sed) [#/Area] None Seen Normal [facility] Comment on above: Order Comment: Speci men Type: URINE SPECIMENOrdering Facility: [facility] Address: [address] [place], [place] [address] Performed By: #### 2 4356-8 ####[facility] LABCLIA [id number] [place] [id number] [place] Glucose Test strip (U) [Mass/Vol] Negative Normal Negative [facility] Comment on above: Order Comment: Speci men Type: URINE SPECIMENOrdering Facility: [facility] Address: [address] [place] [address] Performed By: #### 2 4356-8 ####[facility] LABCLIA [id number] [place] [address] [place] Hemoglobin Ql (U) Negative Normal Negative [facility] Comment on above: Order Comment: Speci men Type: URINE SPECIMENOrdering Facility: [facility] Address: [address] [place] [address] Performed By: #### 2 4356-8 ####[facility] LABCLIA [id number] [place] [address] [place] Hyaline casts (Urine sed) [#/Area] 0 /[LPF] Normal 0 /LPF [facility] Comment on above: Order Comment: Speci men Type: URINE SPECIMENOrdering Facility: [facility] Address: [address] [place] [address] Performed By: #### 2 4356-8 ####[facility] [facility] LABCLIA [id number] [place] [address] [place] Ketones Ql (U) Trace Abnormal Negative [facility] Comment on above: Order Comment: Speci men Type: URINE SPECIMENOrdering Facility: [facility] Address: [address] [place] [address] Performed By: #### 2 4356-8 ####[facility] LABCLIA [id number] [place] [address] [place] Leukocyte esterase Test strip Ql (U) Trace Abnormal Negative [facility] Comment on above: Order Comment: Speci men Type: URINE SPECIMENOrdering Facility: [facility] Address: [address] [place] [address] Performed By: #### 2 4356-8 ####[facility] LABCLIA [id number] [place] [address] [place] Nitrite Ql (U) Negative Normal Negative [facility] Comment on above: Order Comment: Speci men Type: URINE SPECIMENOrdering Facility: [facility] Address: [address] [place] [address] Performed By: #### 2 4356-8 ####[facility] LABCLIA [id number] [place] [address] [place] pH (U) 6.0 [pH] Normal 5.0-8.0 [facility] Comment on above: Order Comment: Speci men Type: URINE SPECIMENOrdering Facility: [facility] Address: [address] [place] [address] Performed By: #### 2 4356-8 ####[facility] LABIA [id number] [place] [address] [place] Protein (U) [Mass/Vol] Trace Abnormal Negative [facility] Comment on above: Order Comment: Speci men Type: URINE SPECIMENOrdering Facility: [facility] Address: [address] [place] [address] Performed By: #### 2 4356-8 ####[facility] LABIA [id number] [place] [address] [place] RBC LM.HPF (Urine sed) [#/Area] 0-2 /HPF Normal 0-2 /HPF [facility] Comment on above: Order Comment: Speci men Type: URINE SPECIMENOrdering Facility: [facility] Address: [address] [place] [address] Performed By: #### 2 4356-8 ####[facility] LABIA [id number] [place] [id number] [place] Specific gravity (U) [Rel density] 1.027 Normal 1.005-1.030 [facility] Comment on above: Order Comment: Speci men Type: URINE SPECIMENOrdering Facility: [facility] Address: [address] [place] [address] Performed By: #### 2 4356-8 ####[facility] LABCLIA [id number] [place] [address] [place] Urobilinogen Ql (U) 1.0 EU/dL Normal 0.2-1.0 EU/dL [facility] Comment on above: Order Comment: Speci men Type: URINE SPECIMENOrdering Facility: [facility] Address: [address] [place] [address] Performed By: #### 2 4356-8 ####[facility] LABCLIA [id number] [place] [address] [place] WBC LM.HPF (Urine sed) [#/Area] 0-5 /HPF Normal 0-5 /HPF [facility] Comment on above: Order Comment: Speci men Type: URINE SPECIMENOrdering Facility: [facility] Address: [address] [place] [address] Performed By: #### 2 4356-8 ####[facility] LABIA [id number] [place] [address] [place] ALBUMIN/CREATININE RATIO, UR INEon 06-23-2025 Albumin DL <= 20 mg/L (U) [Mass/Vol] 29.9 mg/L Normal [facility] Comment on above: Order Comment: Speci men Type: URINE SPECIMENOrdering Facility: [facility] Address: [address] [place] [address] Performed By: #### U ACR ####[facility] LABIA [id number] [place] [address] [place] Albumin/Creatinine (U) [Mass ratio] 15 mg/g Normal <30 [facility] Comment on above: Order Comment: Speci men Type: URINE SPECIMENOrdering Facility: [facility] Address: [address] [place] [address] Result Comment: Adul t Male and Female Nephrotic Criteria: <30 mg/g is considered normal to mildly increased 30-300 mg/g is considered moderately increased >300 mg/g is considered severely increased KDIGO. (2013). KDIGO 2012 Clinical Practice Guideline for the Evaluation and Management of Chronic Kidney Disease. Official Journal of the International Society of Nephrology, 3(1), 1-150. Performed By: #### U ACR ####[facility] LABCLIA [id number] [address] [place] Creatinine (U) [Mass/Vol] 204.7 mg/dL Normal 20.0-300.0 [facility] Comment on above: Order Comment: Speci men Type: URINE SPECIMENOrdering Facility: [facility] Address: [address] [place] [address] Performed By: #### U ACR ####[facility] LABCLIA [id number] [address] OF [facility] Absolute lymphocyte countOrd ered By: Sabrina Moran on 06-23-2025 Lymphocytes Auto (Unsp spec) [#/Vol] 0.98 10*3/uL 0.83-4.51 [facility] Absolute neutrophil countOrd ered By: Sabrina Moran on 06-23-2025 Neutrophils (Bld) [#/Vol] 4.6 10*3/uL 2.0-7.7 [facility] Anion gap in Serum or Plasma Ordered By: Sabrina Moran on 06-23-2025 Anion gap [Moles/Vol] 13 mmol/L 5-15 [facility] Automated lymphocyte count a s percentage of total leukocytesOrdered By: Sabrina Moran on 06-23-2025 Lymphocytes/100 WBC Auto (Unsp spec) 13.6 % Low 19-41 [facility] BUN/creatinine ratioOrdered By: Sabrinacruz Moran on 06-23-2025 Urea nitrogen/Creatinine [Mass ratio] 13.7 mg/mg 10-20 [facility] Basophil percentageOrdered B y: Sabrina Moran on 06-23-2025 Basophils/100 WBC (Bld) 0.7 % 0-1 [facility] Bilirubin, totalOrdered By: Sabrina Moran on 06-23-2025 Bilirubin [Mass/Vol] 0.49 mg/dL 0.00-1.30 [facility] CBC W/Diff, Automatedon 09-0 8-2024 Absolute Lymph 0.98 X10 3/uL Normal 0.83-4.51 [facility] Comment on above: Performed By: #### L 500.4050, L100.0100 #### [facility] [address] [place], [address] Absolute Neut 4.6 X10 3/uL Normal 2.0-7.7 [facility] Comment on above: Performed By: #### L 500.4050, L100.0100 #### [facility] [address] [place], [address] Basophils/100 WBC (Bld) 0.7 % Normal 0-1 [facility] Comment on above: Performed By: #### L 500.4050, L100.0100 #### [facility] [address] [place], [address] Eosinophils/100 WBC (Bld) 7.9 % High 0-5 [facility] Comment on above: Performed By: #### L 500.4050, L100.0100 #### [facility] [address] [place], [address] Erythrocyte distribution width (RBC) [Ratio] 13.2 % Normal 11.6-14.6 [facility] Comment on above: Performed By: #### L 500.4050, L100.0100 #### [facility] [address] [place], [address] Hematocrit (Bld) [Volume fraction] 42.3 % Normal 37-47 [facility] Comment on above: Performed By: #### L 500.4050, L100.0100 #### [facility] [address] [place], [address] Hemoglobin (Bld) [Mass/Vol] 13.9 g/dL Normal 12.0-15.0 [facility] Comment on above: Performed By: #### L 500.4050, L100.0100 #### [facility] [address] [place], [address] IG% 0.800 Normal 0.0-0.9 [facility] Comment on above: Result Comment: IG% - Immature Granulocytes (promyelocytes, myelocytes and metamyelocytes) > 1% indicates that a LEFT SHIFT is Present. Performed By: #### L 500.4050, L100.0100 #### [facility] [address] [place], [address] Lymphocytes/100 WBC (Bld) 13.6 % Low 19-41 [facility] Comment on above: Performed By: #### L 500.4050, L100.0100 #### [facility] [address] [place], [address] MCH (RBC) [Entitic mass] 30.8 pg Normal 27.0-32.0 [facility] Comment on above: Performed By: #### L 500.4050, L100.0100 #### [facility] [address] [place], [address] MCHC (RBC) [Mass/Vol] 32.9 g/dL Normal 32-36 [facility] Comment on above: Performed By: #### L 500.4050, L100.0100 #### [facility] [address] [place], [address] MCV (RBC) [Entitic vol] 93.6 fL Normal 81-99 [facility] Comment on above: Performed By: #### L 500.4050, L100.0100 #### [facility] [address] [place], [address] Monocytes/100 WBC (Bld) 12.4 % High 0-10 [facility] Comment on above: Performed By: #### L 500.4050, L100.0100 #### [facility] [address] [place], [address] Neutrophils/100 WBC (Bld) 64.6 % Normal 47-70 [facility] Comment on above: Performed By: #### L 500.4050, L100.0100 #### [facility] [address] [place], [address] Nucleated RBC (Bld) [#/Vol] 0 10*3/uL Normal 0-5 [facility] Comment on above: Performed By: #### L 500.4050, L100.0100 #### [facility] [address] [place], [address] Platelet mean volume (Bld) [Entitic vol] 9.5 fL Normal 6.2-12.0 [facility] Comment on above: Performed By: #### L 500.4050, L100.0100 #### [facility] [address] [place], [address] Platelets (Bld) [#/Vol] 206 10*3/uL Normal 150-450 [facility] Comment on above: Performed By: #### L 500.4050, L100.0100 #### [facility] [address] [place], [address] RBC (Bld) [#/Vol] 4.52 10*6/uL Normal 4.2-5.4 [facility] Comment on above: Performed By: #### L 500.4050, L100.0100 #### [facility] [address] [place], [address] RDW SD 44.8 fl High 35.1-43.9 [facility] Comment on above: Performed By: #### L 500.4050, L100.0100 #### [facility] [address] [place], [address] WBC (Bld) [#/Vol] 7.2 10*3/uL Normal 4.4-11.0 [facility] Comment on above: Performed By: #### L 500.4050, L100.0100 #### [facility] [address] 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 Patient presents with: Chest Congestion: cough, green phlegm x 4 days HPI Nontoxic-appearing 69-year-old female presents urgent care chief complaint cough and chest congestion fatigue. Initially did have body aches chills low-grade fever sore throat headache that has improved. Most bothersome symptom today is cough. History of bronchitis. This feels similar. No chest pain shortness of breath pleuritic pain hemoptysis. Past medical history prescription medications allergies reviewed Review of Systems Constitutional: Negative for chills, diaphoresis, fatigue and fever. HENT: Negative for congestion, drooling, ear discharge, ear pain, rhinorrhea, sinus pressure, sinus pain, sneezing, sore throat and trouble swallowing. Eyes: Negative for pain, discharge, redness, itching and visual disturbance. Respiratory: Positive for cough. Negative for chest tightness, shortness of breath and wheezing. Cardiovascular: Negative for chest pain. Gastrointestinal: Negative for abdominal distention, abdominal pain, blood in stool, constipation, diarrhea, nausea and vomiting. Genitourinary: Negative for difficulty urinating and dysuria. Musculoskeletal: Negative for arthralgias, joint swelling, neck pain and neck stiffness. Skin: Negative for rash. Neurological: Negative for dizziness, weakness, numbness and headaches. Objective BP 124/66 Pulse 86 Temp 37.1 ?C (98.7 ?F) Resp 18 Wt 103.9 kg (229 lb 0.9 oz) SpO2 94% BMI 42.58 kg/m? Physical Exam Constitutional: Appearance: Normal appearance. HENT: Head: Normocephalic. Jaw: No trismus, tenderness, swelling or pain on movement. Nose: Congestion present. Mouth/Throat: Mouth: Mucous membranes are moist. Pharynx: Oropharynx is clear. Uvula midline. No oropharyngeal exudate or posterior oropharyngeal erythema. Eyes: Conjunctiva/sclera: Conjunctivae normal. Cardiovascular: Rate and Rhythm: Normal rate. Pulmonary: Effort: Pulmonary effort is normal. Breath sounds: Wheezing present. No rhonchi or rales. Abdominal: Palpations: Abdomen is soft. Tenderness: There is no abdominal tenderness. There is no guarding or rebound. Musculoskeletal: General: Normal range of motion. Cervical back: Normal range of motion and neck supple. No edema, erythema or rigidity. No pain with movement. Normal range of motion. Lymphadenopathy: Cervical: No cervical adenopathy. Skin: General: Skin is warm. Findings: No rash. Neurological: General: No focal deficit present. Mental Status: She is alert and oriented to person, place, and time. Mental status is at baseline. {ASSESSMENT/PLAN: 1. Acute cough - ICD9: 786.2, ICD10: R05.1 (primary diagnosis) - XR CHEST 2V FRONTAL/LAT 2. Viral illness - ICD9: 079.99, ICD10: B34.9 - Discussed viral etiology and rationale for treatment. - Symptomatic treatment with prn analgesia - Supportive care with fluids and rest IMPRESSION: No acute radiographic abnormality. No acute findings noted on chest x-ray. Treat as viral etiology. Patient was educated on supportive therapies. Patient will follow up with primary care provider as needed. Patient was instructed to immediately proceed to emergency room for any new, worsening, or symptoms lasting longer than anticipated. The patient's clinical presentation is otherwise unremarkable at this time. Based on exam and clinical finding, the patient is stable for discharge. Plan of care was discussed with patient. Patient verbalizes understanding and agrees to plan of care. This note was generated using Book[employer] software. It may contain errors in wording, punctuation, or spelling. Laurent Rose APRN.CIRCULAR KNIFE CUTTER MACHINE History and Record Review Clinical information obtained from an independent historian. History obtained from or confirmed by: parent. External record(s) reviewed: prior outpatient record. Disposition The patient was discharged. OTC Medications were advised: Procedures Referring Provider: VANESSA BERG [[id number]] Allergies As of Date: 06/23/2025 Noted Allergy Reaction DOLOBID (DIFLUNISAL) 08/25/2005 2 - Rash Date Reviewed: 06/23/2025 Reviewed by: Laurent Rose APRN.CIRCULAR KNIFE CUTTER MACHINE - Fully Assessed Reason for Visit: Chest Congestion [236] Cmt: cough, green phlegm x 4 days Primary Visit Diagnosis:Acute cough [R05.1] Other Visit Diagnosis:Viral illness [B34.9] Order(s):XR CHEST 2V FRONTAL/LAT [[id number]] Order (more content not included)... Normal [facility] Carbon dioxide, total [Moles /volume] in Central venous bloodOrdered By: Sabrina Moran on 06-23-2025 CO2 [Moles/Vol] 24.8 mmol/L 21.0-32.0 [facility] Chloride assayOrdered By: Christel Moran on 06-23-2025 Chloride [Moles/Vol] 103 mmol/L 98-108 [facility] Comprehensive Metabolic Prof ilon 06-23-2025 Albumin [Mass/Vol] 3.9 g/dL Normal 3.4-4.8 [facility] Comment on above: Performed By: #### L 500.4050, L100.0100 #### [facility] [address] [place], [address] Albumin/Globulin [Mass ratio] 1.4 {ratio} Normal 0.9-2.4 [facility] Comment on above: Performed By: #### L 500.4050, L100.0100 #### [facility] [address] [place], [address] ALK PHOS 62 U/L Normal 35-104 [facility] Comment on above: Performed By: #### L 500.4050, L100.0100 #### [facility] [address] [place], [address] ALT [Catalytic activity/Vol] 48 U/L High <=34 [facility] Comment on above: Performed By: #### L 500.4050, L100.0100 #### [facility] [address] [place], [address] AST [Catalytic activity/Vol] 37 U/L High <=31 [facility] Comment on above: Performed By: #### L 500.4050, L100.0100 #### [facility] [address] [place], [address] Bilirubin [Mass/Vol] 0.49 mg/dL Normal 0.00-1.30 [facility] Comment on above: Performed By: #### L 500.4050, L100.0100 #### [facility] [address] [place], [address] BUN/CRE 13.7 RATIO Normal 10-20 [facility] Comment on above: Performed By: #### L 500.4050, L100.0100 #### [facility] [address] [place], [address] Calcium [Mass/Vol] 9.0 mg/dL Normal 7.6-11.0 [facility] Comment on above: Performed By: #### L 500.4050, L100.0100 #### [facility] [address] [place], [address] Chloride [Moles/Vol] 103 mmol/L Normal 98-108 [facility] Comment on above: Performed By: #### L 500.4050, L100.0100 #### [facility] [address] [place], [address] CO2 [Moles/Vol] 24.8 mmol/L Normal 21.0-32.0 [facility] Comment on above: Performed By: #### L 500.4050, L100.0100 #### [facility] [address] [place], [address] Creatinine [Mass/Vol] 0.83 mg/dL Normal 0.70-1.20 [facility] Comment on above: Performed By: #### L 500.4050, L100.0100 #### [facility] [address] [place], [address] GAP 13 Normal 5-15 [facility] Comment on above: Performed By: #### L 500.4050, L100.0100 #### [facility] [address] [place], [address] GFR/1.73 sq M.predicted among non-blacks MDRD (S/P/Bld) [Vol rate/Area] 77 mL/min/{1.73_m2} Normal >60 [facility] Comment on above: Result Comment: mL/m in/1.73m2 CKD-EPI Creatinine Equation (2020) Performed By: #### L 500.4050, L100.0100 #### [facility] [address] [place], [address] Globulin (S) [Mass/Vol] 2.7 g/dL Normal 2.2-4.2 [facility] Comment on above: Performed By: #### L 500.4050, L100.0100 #### [facility] [address] [place], [address] Glucose [Mass/Vol] 162 mg/dL High 70-99 [facility] Comment on above: Performed By: #### L 500.4050, L100.0100 #### [facility] [address] [place], [address] Potassium [Moles/Vol] 3.8 mmol/L Normal 3.3-5.1 [facility] Comment on above: Performed By: #### L 500.4050, L100.0100 #### [facility] [address] [place], [address] Sodium [Moles/Vol] 140 mmol/L Normal 133-145 [facility] Comment on above: Performed By: #### L 500.4050, L100.0100 #### [facility] [address] [place], [address] T PROT 6.7 g/dL Normal 5.9-8.4 [facility] Comment on above: Performed By: #### L 500.4050, L100.0100 #### [facility] [address] [place], [address] Urea nitrogen [Mass/Vol] 11 mg/dL Normal 4-19 [facility] Comment on above: Performed By: #### L 500.4050, L100.0100 #### [facility] [address] [place], [address] Comprehensive metabolic 2000 panelon 06-23-2025 Albumin [Mass/Vol] 4.0 g/dL Normal 3.9-4.9 [facility] Comment on above: Order Comment: Speci men Type: BLOOD SPECIMENOrdering Facility: [facility] Address: [address] [place] [address] Performed By: #### L CAM, 22167-8 ####[facility] LABCLIA [id number] [address] [address] [place] ALP [Catalytic activity/Vol] 63 U/L Normal 34-123 [facility] Comment on above: Order Comment: Speci men Type: BLOOD SPECIMENOrdering Facility: [facility] Address: [address] [place] [address] Performed By: #### L IPNF, 04795-8 ####[facility] LABCLIA [id number] [facility] [address] [address] [place] ALT [Catalytic activity/Vol] 47 U/L High 7-38 [facility] Comment on above: Order Comment: Speci men Type: BLOOD SPECIMENOrdering Facility: [facility] Address: [address] [place] [address] Performed By: #### L IPNF, ####[facility] LABCLIA [id number] [place] [id number] [place] Anion gap [Moles/Vol] 15 mmol/L Normal 8-15 [facility] Comment on above: Order Comment: Speci men Type: BLOOD SPECIMENOrdering Facility: [facility] Address: [address] [place] [address] Performed By: #### L IPNF, 99308-1 ####[facility] LABCLIA [id number] [place] [address] [place] AST [Catalytic activity/Vol] 32 U/L Normal 13-35 [facility] Comment on above: Order Comment: Speci men Type: BLOOD SPECIMENOrdering Facility: [facility] Address: [address] [place] [address] Performed By: #### L IPNF, 16642-9 ####[facility] LABCLIA [id number] [place] [address] [place] Bilirubin [Mass/Vol] 0.6 mg/dL Normal 0.2-1.3 [facility] Comment on above: Order Comment: Speci men Type: BLOOD SPECIMENOrdering Facility: [facility] Address: [address] [place] [address] Performed By: #### L IPNF, 32151-8 ####[facility] LABCLIA [id number] [place] [id number] [place] Calcium [Mass/Vol] 9.1 mg/dL Normal 8.5-10.2 [facility] Comment on above: Order Comment: Speci men Type: BLOOD SPECIMENOrdering Facility: [facility] Address: [address] [place] [address] Performed By: #### L IPNF, 04886-7 ####[facility] LABCLIA [id number] [facility] [place] [id number] [place] Chloride [Moles/Vol] 104 mmol/L Normal 98-107 [facility] Comment on above: Order Comment: Speci men Type: BLOOD SPECIMENOrdering Facility: [facility] Address: [address] [place] [address] Performed By: #### L IPNF, ####[facility] LABCLIA [id number] [place] [id number] [place] CO2 [Moles/Vol] 23 mmol/L Normal 22-30 [facility] Comment on above: Order Comment: Speci men Type: BLOOD SPECIMENOrdering Facility: [facility] Address: [address] [place], [place] [address] Performed By: #### L IPNF, 62112-6 ####[facility] LABCLIA [id number] [place] [id number] [place] Creatinine [Mass/Vol] 0.83 mg/dL Normal 0.58-0.96 [facility] Comment on above: Order Comment: Speci men Type: BLOOD SPECIMENOrdering Facility: [facility] Address: [address] [place], [place] [address] Performed By: #### L IPNF, 71796-5 ####[facility] LABCLIA [id number] [place] [id number] [place] eGFRcr SerPlBld CKD-EPI 2020 77 mL/min/1.73m??? Normal >=60 [facility] Comment on above: Order Comment: Speci men Type: BLOOD SPECIMENOrdering Facility: [facility] Address: [address] [place] [address] Result Comment: Marni mated Glomerular Filtration Rate (eGFR) is calculated using the 2020 CKD-EPI creatinine equation. This equation utilizes serum creatinine, sex, and age as parameters. The creatinine assay has traceable calibration to isotope dilution-mass spectrometry. Refer to KDIGO guidelines for clinical interpretation. In patients with unstable renal function, e.g. those with acute kidney injury, the eGFR may not accurately reflect actual GFR. Performed By: #### L CAM, 11732-6 ####[facility] [id number] [place] [address] [place] Glucose [Mass/Vol] 141 mg/dL High 74-99 [facility] Comment on above: Order Comment: Rolando bautista Type: BLOOD SPECIMENOrdering Facility: [facility] Address: [address] [place] [address] Result Comment: The [place] Diabetes Association (ADA) provides guidance for cutoff values for fasting glucose and random glucose. The ADA defines fasting as no caloric intake for at least 8 hours. Fasting plasma glucose results between 100 to 125 mg/dL indicate increased risk for diabetes (prediabetes). Fasting plasma glucose results greater than or equal to 126 mg/dL meet the criteria for diagnosis of diabetes. In the absence of unequivocal hyperglycemia, results should be confirmed by repeat testing. In a patient with classic symptoms of hyperglycemia or hyperglycemic crisis, random plasma glucose results greater than or equal to 200 mg/dL meet the criteria for diagnosis of diabetes. Reference: Standards of Medical Care in Diabetes 2016, [place] Diabetes Association. Diabetes Care. 2016.39(Suppl 1). Performed By: #### L CAM, 19075-9 ####[facility] [id number] [place] [id number] [place] Potassium [Moles/Vol] 4.0 mmol/L Normal 3.7-5.1 [facility] Comment on above: Order Comment: Rolando bautista Type: BLOOD SPECIMENOrdering Facility: [facility] Address: [address] [place] [address] Performed By: #### L CAM, 30963-9 ####[facility] LABCLIA [id number] [address] [address] [place] Protein [Mass/Vol] 6.9 g/dL Normal 6.3-8.0 [facility] Comment on above: Order Comment: Speci men Type: BLOOD SPECIMENOrdering Facility: [facility] Address: [address] [place] [address] Performed By: #### L IPNF, 58500-7 ####[facility] LABCLIA [id number] [place] [address] [place] Sodium [Moles/Vol] 142 mmol/L Normal 136-144 [facility] Comment on above: Order Comment: Speci men Type: BLOOD SPECIMENOrdering Facility: [facility] Address: [address] [place] [address] Performed By: #### L IPNF, 42412-9 ####[facility] LABCLIA [id number] [place] [address] [place] Urea nitrogen [Mass/Vol] 12 mg/dL Normal 7-21 [facility] Comment on above: Order Comment: Speci men Type: BLOOD SPECIMENOrdering Facility: [facility] Address: [address] [place] [address] Performed By: #### L IPNF, 24181-8 ####[facility] LABCLIA [id number] [place] [id number] [place] Eosinophil percentageOrdered By: Sabrina Moran on 06-23-2025 Eosinophils/100 WBC (Bld) 7.9 % High 0-5 [facility] Erythrocyte distribution wid th ratioOrdered By: Sabrina Moran on 06-23-2025 Erythrocyte distribution width (RBC) [Ratio] 13.2 % 11.6-14.6 [facility] Erythrocyte distribution wid th standard deviationOrdered By: Sabrina Moran on 06-23-2025 Erythrocyte distribution width (RBC) [Ratio] 44.8 fl High 35.1-43.9 [facility] Glomerular filtration rate ( GFR) estimation/1.73 sq m using serum, plasma, or whole bOrdered By: Sabrina Moran on 06-23-2025 GFR/1.73 sq M.predicted among non-blacks MDRD (S/P/Bld) [Vol rate/Area] 77 mL/min/{1.73_m2} >60 [facility] Comment on above: mL/min/1.73m2 CKD-EP I Creatinine Equation (2020) HbA1c (Bld)on 06-23-2025 Average glucose Estimated from glycated hemoglobin (Bld) [Mass/Vol] 117 mg/dL Normal [facility] Comment on above: Order Comment: Rolando bautista Type: BLOOD SPECIMENOrdering Facility: [facility] Address: [address] [place] [address] Result Comment: eAG: (Estimated average glucose) is a calculated value from HgbA1c and is employee's representative of the average blood glucose level in the last 2-3 month period. Performed By: #### 5 5454-3 ####[facility] LABIA [id number] [place] [address] [place] HbA1c (Bld) [Mass fraction] 5.7 % High 4.3-5.6 [facility] Comment on above: Order Comment: Rolando bautista Type: BLOOD SPECIMENOrdering Facility: [facility] Address: [address] [place] [address] Result Comment: [place] Diabetes Association guidelines indicate that patients with HgbA1c in the range 5.7-6.4% are at increased risk for development of diabetes, and intervention by lifestyle modification may be beneficial. HgbA1c greater or equal to 6.5% is considered diagnostic of diabetes. Performed By: #### 5 5454-3 ####[facility] LABIA [id number] [place] [id number] [place] Hematocrit Auto (Bld) [Volum e fraction]Ordered By: Sabrina Moran on 06-23-2025 Hematocrit (Bld) [Volume fraction] 42.3 % 37-47 [facility] Hemoglobin measurementOrdere d By: Sabrina Moran on 06-23-2025 Hemoglobin (Bld) [Mass/Vol] 13.9 g/dL 12.0-15.0 [facility] Immature granulocytes/100 WB C Auto (Bld)Ordered By: Sabrina Moran on 06-23-2025 Immature granulocytes/100 WBC (Bld) 0.800 % 0.0-0.9 [facility] Comment on above: IG% - Immature Granu locytes (promyelocytes, myelocytes and metamyelocytes) > 1% indicates that a LEFT SHIFT is Present. LIPID PANEL, NONFASTINGon Cholesterol [Mass/Vol] 108 mg/dL Normal <200 [facility] Comment on above: Order Comment: Rolando bautista Type: BLOOD SPECIMENOrdering Facility: [facility] Address: [address] [place] [address] Result Comment: <200 mg/dL, Desirable 200-239 mg/dL, Borderline high >239 mg/dL, High Performed By: #### L CAM, 00404-6 ####[facility] LABIA [id number] [place] [address] [place] HDL CHOLESTEROL, NF 44 mg/dL Normal >39 [facility] Comment on above: Order Comment: Rolando bautista Type: BLOOD SPECIMENOrdering Facility: [facility] Address: [address] [place] [address] Result Comment: 40-5 9 mg/dL, Acceptable >59 mg/dL, High: Negative risk factor for coronary heart disease <40 mg/dL, Low: Positive risk factor for coronary heart disease Performed By: #### L CAM, 32410-8 ####[facility] LABCLIA [id number] [place] [address] [place] LDL CHOLESTEROL CALCULATED, NF 47 mg/dL Normal <100 [facility] Comment on above: Order Comment: Rolando bautista Type: BLOOD SPECIMENOrdering Facility: [facility] Address: [address] [place] [address] Result Comment: <100 mg/dL, Optimal 100-129 mg/dL, Near optimal/above optimal 130-159 mg/dL, Borderline high 160-189 mg/dL, High >189 mg/dL, Very high Secondary prevention optimal LDL Cholesterol levels are recommended to be <70 mg/dL LDL cholesterol is calculated using the Ocampo-NIH equation. Performed By: #### L CAM, 10808-7 ####[facility] LABCLIA [id number] [address] [place] LDL/HDL RATIO, NF 1.07 mg/dL Normal <2.54 [facility] Comment on above: Order Comment: Speci men Type: BLOOD SPECIMENOrdering Facility: [facility] Address: [address] [place] [address] Result Comment: Murali terry: 1. National Cholesterol Education Program ATP III Guideline At-A-Glance Quick Desk Reference: National Heart, Lung, and Blood Lamar. National Institutes of Health. 2001: NIH Publication No. 01-3305. 2. An International Atherosclerosis Society position paper: global recommendations for the management of dyslipidemia: executive summary, Atherosclerosis. 2014: 232(2):410-413. Performed By: #### L CAM, ####[facility] LABIA [id number] [address] OF [facility] NON HDL CHOL, NF 64 mg/dL Normal <130 [facility] Comment on above: Order Comment: Radhai men Type: BLOOD SPECIMENOrdering Facility: [facility] Address: [address] [place] [address] Result Comment: <130 mg/dL, Optimal 130-159 mg/dL, Near optimal/above optimal 160-189 mg/dL, Borderline high 190-219 mg/dL, High >219 mg/dL, Very high Secondary prevention optimal non HDL Cholesterol levels are recommended to be <100 mg/dL Performed By: #### L CAM, 58439-5 ####[facility] LABIA [id number] [address] [address] [facility] T CHOL/HDL RATIO NF 2.45 mg/dL Normal <5.10 [facility] Comment on above: Order Comment: Speci men Type: BLOOD SPECIMENOrdering Facility: [facility] Address: [address] [place] [address] Performed By: #### L CAM, 82484-1 ####[facility] LABCLIA [id number] [place] [id number] [place] TRIGLYCERIDES, NF 85 mg/dL Normal <150 [facility] Comment on above: Order Comment: Speci men Type: BLOOD SPECIMENOrdering Facility: [facility] Address: [address] [place] [address] Result Comment: <150 mg/dL, Normal 150-199 mg/dL, Borderline high 200-499 mg/dL, High >499 mg/dL, Very high Performed By: #### L CAM, 38828-5 ####[facility] LABCLIA [id number] [place] [address] [place] VLDL CHOLESTEROL, NF 12 mg/dL Normal <30 [facility] Comment on above: Order Comment: Speci men Type: BLOOD SPECIMENOrdering Facility: [facility] Address: [address] [place] [address] Performed By: #### L CAM, 57296-8 ####[facility] LABCLIA [id number] [place] [address] [place] Laboratory - Chemistry and C hemistry - challengeOrdered By: Sabrina Moran on 06-23-2025 AST [Catalytic activity/Vol] 37 U/L High <32 [facility] MCV (mean corpuscular volume ) determinationOrdered By: Sabrina Moran on 06-23-2025 MCV (RBC) [Entitic vol] 93.6 fL 81-99 [facility] Mean corpuscular hemoglobin (MCH) determinationOrdered By: Sabrina Moran on 06-23-2025 MCH (RBC) [Entitic mass] 30.8 pg 27.0-32.0 [facility] Mean corpuscular hemoglobin concentration (MCHC) determinationOrdered By: Sabrina Moran on 06-23-2025 MCHC (RBC) [Mass/Vol] 32.9 g/dL 32-36 [facility] Mean platelet volume determi nationOrdered By: Sabrina Moran on 06-23-2025 Platelet mean volume (Bld) [Entitic vol] 9.5 fL 6.2-12.0 [facility] Monocyte percentageOrdered B y: Sabrina Moran on 06-23-2025 Monocytes/100 WBC (Bld) 12.4 % High 0-10 [facility] Neutrophil percentageOrdered By: Sabrina Moran on 06-23-2025 Neutrophils/100 WBC (Bld) 64.6 % 47-70 [facility] Nucleated red blood cell per centageOrdered By: Sabrina Moran on 06-23-2025 Nucleated RBC/100 WBC (Bld) [Ratio] 0 % 0-5 [facility] Platelet countOrdered By: Christel Moran on 06-23-2025 Platelets (Bld) [#/Vol] 206 10*3/uL 150-450 [facility] Potassium measurement (mass/ volume)Ordered By: Sabrina Moran on 06-23-2025 Potassium (Unsp spec) [Mass/Vol] 3.8 mmol/L 3.3-5.1 [facility] RBC Auto (Bld) [#/Vol]Ordere d By: Sabrina Moran on 06-23-2025 RBC (Bld) [#/Vol] 4.52 10*6/uL 4.2-5.4 [facility] Serum creatinine measurement (mass/volume)Ordered By: Sabrina Moran on 06-23-2025 Creatinine [Mass/Vol] 0.83 mg/dL 0.70-1.20 [facility] Serum globulin measurementOr dered By: Sabrina Moran on 06-23-2025 Globulin (S) [Mass/Vol] 2.7 g/dL 2.2-4.2 [facility] Serum glucose measurement (m ass/volume)Ordered By: Sabrina Moran on 06-23-2025 Glucose [Mass/Vol] 162 mg/dL High 70-99 [facility] Serum or plasma alanine callahan otransferase (ALT) measurementOrdered By: Sabrina Moran on 06-23-2025 ALT [Catalytic activity/Vol] 48 U/L High <35 [facility] Serum or plasma albumin shadia urement (mass/volume)Ordered By: Sabrina Moran on 06-23-2025 Albumin [Mass/Vol] 3.9 g/dL 3.4-4.8 [facility] Serum or plasma albumin/glob ulin mass ratioOrdered By: Sabrina Moran on 06-23-2025 Albumin/Globulin [Mass ratio] 1.4 {ratio} 0.9-2.4 [facility] Serum or plasma alkaline corie sphatase measurementOrdered By: Sabrina Moran on 06-23-2025 ALP [Catalytic activity/Vol] 62 U/L 35-104 [facility] Serum or plasma calcium shadia urement (mass/volume)Ordered By: Sabrina Moran on 06-23-2025 Calcium [Mass/Vol] 9.0 mg/dL 7.6-11.0 [facility] Serum or plasma urea nitroge n measurement (mass/volume)Ordered By: Sabrina Moran on 06-23-2025 Urea nitrogen [Mass/Vol] 11 mg/dL 4-19 [facility] Sodium levelOrdered By: Katharine Moran on 06-23-2025 Sodium [Moles/Vol] 140 mmol/L 133-145 [facility] Total proteinOrdered By: Delisa Moran on 06-23-2025 Protein [Mass/Vol] 6.7 g/dL 5.9-8.4 [facility] Urinalysis complete panel (U )on 06-23-2025 Bacteria LM.HPF (Urine sed) [#/Area] Negative Normal Negative [facility] Comment on above: Order Comment: Speci men Type: URINE SPECIMENOrdering Facility: [facility] Address: [address] [place] [address] Performed By: #### 2 4356-8 ####[facility] LABCLIA [id number] [place] [address] [place] Bilirubin Ql (U) Negative Normal Negative [facility] Comment on above: Order Comment: Speci men Type: URINE SPECIMENOrdering Facility: [facility] Address: [address] [place] [address] Performed By: #### 2 4356-8 ####[facility] LABCLIA [id number] [place] [address] [place] Clarity (Unsp spec) Clear Normal Clear [facility] Comment on above: Order Comment: Speci men Type: URINE SPECIMENOrdering Facility: [facility] Address: [address] [place] [address] Performed By: #### 2 4356-8 ####[facility] LABCLIA [id number] [place] [address] [place] Color (U) Dark Yellow Abnormal Yellow [facility] Comment on above: Order Comment: Speci men Type: URINE SPECIMENOrdering Facility: [facility] Address: [address] [place] [address] Performed By: #### 2 4356-8 ####[facility] LABCLIA [id number] [place] [address] [place] Epithelial cells LM.HPF (Urine sed) [#/Area] None Seen Normal [facility] Comment on above: Order Comment: Speci men Type: URINE SPECIMENOrdering Facility: [facility] Address: [address] [place] [address] Performed By: #### 2 4356-8 ####[facility] LABCLIA [id number] [place] [address] [place] Glucose Test strip (U) [Mass/Vol] Negative Normal Negative [facility] Comment on above: Order Comment: Speci men Type: URINE SPECIMENOrdering Facility: [facility] Address: [address] [place] [address] Performed By: #### 2 4356-8 ####[facility] LABCLIA [id number] [place] [address] [place] Hemoglobin Ql (U) Negative Normal Negative [facility] Comment on above: Order Comment: Speci men Type: URINE SPECIMENOrdering Facility: [facility] Address: [address] [place] [address] Performed By: #### 2 4356-8 ####[facility] LABCLIA [id number] [facility] [address] [place] [address] [place] Hyaline casts (Urine sed) [#/Area] 1-3 /LPF Abnormal 0 /LPF [facility] Comment on above: Order Comment: Speci men Type: URINE SPECIMENOrdering Facility: [facility] Address: [address] [place] [address] Performed By: #### 2 4356-8 ####[facility] LABCLIA [id number] [address], [facility] [place] Ketones Ql (U) Negative Normal Negative [facility] Comment on above: Order Comment: Speci men Type: URINE SPECIMENOrdering Facility: [facility] Address: [address] [place] [address] Performed By: #### 2 4356-8 ####[facility] LABCLIA [id number] [address], [id number] [place] Leukocyte esterase Test strip Ql (U) Negative Normal Negative [facility] Comment on above: Order Comment: Speci men Type: URINE SPECIMENOrdering Facility: [facility] Address: [address] [place] [address] Performed By: #### 2 4356-8 ####[facility] LABCLIA [id number] [address] [place] [address] [place] Nitrite Ql (U) Negative Normal Negative [facility] Comment on above: Order Comment: Speci men Type: URINE SPECIMENOrdering Facility: [facility] Address: [address] [place], [place] [address] Performed By: #### 2 4356-8 ####[facility] LABCLIA [id number] [address], [facility] [place] pH (U) 5.5 [pH] Normal 5.0-8.0 [facility] Comment on above: Order Comment: Speci men Type: URINE SPECIMENOrdering Facility: [facility] Address: [address] [place] [address] Performed By: #### 2 4356-8 ####[facility] LABIA [id number] [place] [address] [place] Protein (U) [Mass/Vol] 1+ Abnormal Negative Cl [facility] Comment on above: Order Comment: Speci men Type: URINE SPECIMENOrdering Facility: [facility] Address: [address] [place] [address] Performed By: #### 2 4356-8 ####[facility] LABIA [id number] [place] [address] [place] RBC LM.HPF (Urine sed) [#/Area] 6-10 /HPF Abnormal 0-2 /HPF [facility] Comment on above: Order Comment: Speci men Type: URINE SPECIMENOrdering Facility: [facility] Address: [address] [place] [address] Performed By: #### 2 4356-8 ####[facility] [id number] [place] [address] [place] Specific gravity (U) [Rel density] 1.033 High 1.005-1.030 [facility] Comment on above: Order Comment: Speci men Type: URINE SPECIMENOrdering Facility: [facility] Address: [address] [place] [address] Performed By: #### 2 4356-8 ####[facility] LABIA [id number] [place] [address] [place] Urobilinogen Ql (U) 0.2 EU/dL Normal 0.2-1.0 EU/dL [facility] Comment on above: Order Comment: Speci men Type: URINE SPECIMENOrdering Facility: [facility] Address: [address] [place] [address] Performed By: #### 2 4356-8 ####[facility] LABIA [id number] [place] [address] [place] WBC LM.HPF (Urine sed) [#/Area] 0-5 /HPF Normal 0-5 /HPF [facility] Comment on above: Order Comment: Speci men Type: URINE SPECIMENOrdering Facility: [facility] Address: [address] [place] [address] Performed By: #### 2 4356-8 ####[facility] LABIA [id number] [place] [id number] [place] White blood cell (WBC) count Ordered By: Sabrina Mroan on 06-23-2025 WBC (Bld) [#/Vol] 7.2 10*3/uL 4.4-11.0 [facility] XR CHEST 2V FRONTAL/LATon XR CHEST 2V FRONTAL/LAT * * *Final Report* * * DATE OF EXAM: Jun 23 2025 1:01PM WOX [id number] - XR CHEST 2V FRONTAL/LAT / PROCEDURE REASON: Acute cough * * * * Physician Interpretation * * * * EXAMINATION: CHEST RADIOGRAPH (2 VIEW FRONTAL and LATERAL) CLINICAL HISTORY: Acute cough MQ: XC2_6 EXAM DATE/TIME: 06/23/2025 1:01 PM COMPARISON: Chest x-ray dated 05/07/2024 RESULT: Lines, tubes, and devices: None. Lungs and pleura: No consolidation. No lung mass. No pleural effusion. No pneumothorax. Cardiomediastinal silhouette: Normal cardiomediastinal silhouette. Bones and soft tissues: Mild degenerative changes. IMPRESSION: No acute radiographic abnormality. [place]: PSCLaura Transcribe Date/Time: Jun 23 2025 1:07P Dictated by : MORGAN ASIF MD This examination was interpreted and the report reviewed and electronically signed by: MORGAN ASIF MD on Jun 23 2025 1:08PM EST [id number] Normal [facility] XR Chest PA and Lateralon IMPRESSION: No acute radiographic abnormality. [place]: DIMA Transcribe Date/Time: Jun 23 2025 1:07P Dictated by : MORGAN ASIF MD This examination was interpreted and the report reviewed and electronically signed by: MORGAN ASIF MD on Jun 23 2025 1:08PM [facility] DIVISION OF RADIOLOGY * * *Final Report* * * DATE OF EXAM: Jun 23 2025 1:01PM WOX 5291 - XR CHEST 2V FRONTAL/LAT / PROCEDURE REASON: Acute cough * * * * Physician Interpretation * * * * EXAMINATION: CHEST RADIOGRAPH (2 VIEW FRONTAL & LATERAL) CLINICAL HISTORY: Acute cough MQ: XC2_6 EXAM DATE/TIME: 06/23/2025 1:01 PM COMPARISON: Chest x-ray dated 05/07/2024 RESULT: Lines, tubes, and devices: None. Lungs and pleura: No consolidation. No lung mass. No pleural effusion. No pneumothorax. Cardiomediastinal silhouette: Normal cardiomediastinal silhouette. Bones and soft tissues: Mild degenerative changes. DIVISION OF RADIOLOGY Provider, [facility] - 06/23/2025 * * *Final Report* * * DATE OF EXAM: Jun 23 2025 1:01PM WOX 5291 - XR CHEST 2V FRONTAL/LAT / PROCEDURE REASON: Acute cough * * * * Physician Interpretation * * * * EXAMINATION: CHEST RADIOGRAPH (2 VIEW FRONTAL & LATERAL) CLINICAL HISTORY: Acute cough MQ: XC2_6 EXAM DATE/TIME: 06/23/2025 1:01 PM COMPARISON: Chest x-ray dated 05/07/2024 RESULT: Lines, tubes, and devices: None. Lungs and pleura: No consolidation. No lung mass. No pleural effusion. No pneumothorax. Cardiomediastinal silhouette: Normal cardiomediastinal silhouette. Bones and soft tissues: Mild degenerative changes. IMPRESSION IMPRESSION: No acute radiographic abnormality. [place]: DIMA Transcribe Date/Time: Jun 23 2025 1:07P Dictated by : MORGAN ASIF MD This examination was interpreted and the report reviewed and electronically signed by: MORGAN ASIF MD on Jun 23 2025 1:08PM EST [facility] Radiology Study observation (narrative) [facility] XR Chest PA and LateralOrder ed By: [facility] Provider on 06-23-2025 [facility] Inital Evaluation (1) - PTon 06-12-2025 Inital Evaluation (1) - PT [facility] Physical Therapy [facility] [address] [place] [address] / REHABILITATION SERVICES INITIAL EVALUATION MR#: [id number] Acct: [id number] Name: KATE TATUM Rep #: [id number] : [id number] 69 From: Michael Breen DPT, OCS, CSCS Referring Dr.: CHRISTEL Vargas Status: REG R CR Insurance: [employer] [facility] Patient's Visit Information Visit Information Visit Information: KATE COFFEY is a 69 year old F referred to Physical Therapy by CHRISTEL Vargas with a diagnosis of OA L kne. Date of Evaluation: 06/12/25 Physical Therapist: Michael Breen DPT, ADOLPH, CSCS Visit Plan Frequency: 2x /Week Duration: 4-6 Weeks Plan: 2x/week for 4-6 weeks for aquatic therapy for B knee adn hip ROM, stretch quad, core adn hip adn knee strength to I pool /home program. IE LAQ if sitting long time and activity modification as ablee Subjective Subjective: OA L knee and painful. Has OA in both knees. L knee given voltarin and it helped. Will do that for21 days. it helped 75%. L knee pain this week to 7/10 at times if on it alot. yardwork is worse. Feels better sitting. Ice helps. Massage chair helps. Sleep is not a problem anymore. No regular exercises. 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 Not calling off work more than once. Basic ADLs: dresses and bathes and bathroom all I, pain may make her cautious. Hobbies: read, cats Pain L knee: Pain Intensity (Out of 10): 1 Pain Intensity Range: 0 and 7 Objective Objective: Walks I without AD with L knee varus obvious. Slight antalgia. transfer chair and bed I. L knee AROM -3 to 115, R knee 0-130, tightness present in quad L >R and HS B at -30 90/90 test. Hips are painful to move also and limited to 0 ext with + FABERE and FADDIR B slightly. ankles moving OK with some gastroc tightness B. + bounce home L and + scour L knee especially medially. tender to palpation L meedial knee joint line, patella moving well B. Balance/Special Test Scores Lower Extremity Functional Score: 46 Goals Goal 1:: I appropriate water/HEP to limit future problems with OA and pain Goal Time Frame: 4-6 Weeks Goal 2:: Pain in L knee 1/10 at worst adn 90% improved. Goal Time Frame: 4-6 Weeks Goal 3:: sleep without waking at night due to pain. Goal Time Frame: 4-6 Weeks Goal 4:: work consistently without increased pain Goal Time Frame: 4-6 Weeks Goal 5:: LEFS score 53 Goal Time Frame: 4-6 Weeks Rehabilitation Potential Physical Therapy Diagnosis: widspread degeneration notably in L knee with varus deformity effecting comfortable funciton. Rehabilitation Potential: Fair Anticipated Interventions Patient/Client Instruction: Educate patient on: Condition and Plan of Care For the Purpose of:: To decrease pain, To increase ROM, To improve nutrient delivery to tissue, To improve muscle performance and motor function and To increase tolerance to activity/condition/positio n Therapeutic Exercise to Include: Strength training, Flexibilty training, Gait and locomotor training, In an aquatic setting, Passive ROM and Active ROM For the Purpose of:: To decrease pain, To increase ROM, To improve nutrient delivery to tissue, To improve muscle performance and motor function, To increase tolerance to activity/condition/positio n, To improve ability of physical actions for home/community/work/leisur e and To improve gait and locomotor functions Text: Thank you for the opportunity to evaluate your patient. For Medicare and Medicare HMO plans, please review the plan of care and approve it. It will need to be FAXED BACK to us at [phone] for Medicare purposes. For Medicare only, by signing this I certify the plan of care. Please let me know if there are questions or concerns regarding this plan of care. Physician Signature: Date: 06/12/251852 CC: CHRISTEL Vargas; Dr. Laurent Pagan MD HENRIQUE [facility] Office Visit ([facility]) -- KATE TATUM ([id number]) 1955 F Date Time Provider Department 05/28/25 5:00 PM GREGORY RINCON During your visit today, we recorded the following information about you: Temperature Pulse Respiration Blood pressure 98.5 degrees 110/minute 20/minute 168/88 Weight 105.6 kg Gregory Rincon PA-C 05/28/2025 6:14 PM Signed [facility] Subjective Kate Coffey is a 69 year old female. Patient presents with: Knee Pain: Left knee pain started this morning HPI Left Knee Pain: - Acute onset of severe left knee pain, localized to the inferior patella, began this morning. - Aggravated by bending, particularly when getting out of the car. - No known trauma or falls. - History of recurrent left knee issues, including a previous ED visit for inability to bear weight, during which fluid was aspirated. - Last cortisone injection was 6 years ago. - Orthopedic consultation 6 years ago advised against knee surgery. - Uses a knee sleeve and applies lidocaine for pain management. - Denies hip pain. - Family history of bilateral knee replacements in father. 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 - Denies cough or emesis. Fibromyalgia: - Diagnosed in multiple joints, except the left knee. Diabetes: - Denies current medication use. Review of Systems Respiratory: (-) cough Gastrointestinal: (-) vomiting Musculoskeletal: (+) left knee pain, (-) hip pain Objective BP 168/88 Pulse 110 Temp 36.9 ?C (98.5 ?F) Resp 20 Wt 105.6 kg (232 lb 12.9 oz) SpO2 95% BMI 43.28 kg/m? Physical Exam General: No acute distress. CV: Regular rate and rhythm. Resp: Lungs clear to auscultation bilaterally. Abd: Active bowel sounds. MSK/Ext: Pain with lateral Bernardo test on left knee. 1. Chronic pain of left knee (M25.562) - Acute exacerbation of chronic left knee pain; X-ray demonstrates severe cartilage loss at the medial aspect of the left knee joint with moderate osteoarthritis, no fracture. - Pain localized to the inferior patella, worsened by bending; positive pain response with lateral Bernardo testing. - Start prednisone 50 mg PO daily. - Discussed X-ray findings and rationale for treatment options, including corticosteroid injection and Synvisc injection; explained that these may provide temporary relief but are not curative. - Discussed potential need for knee replacement if conservative measures fail; encouraged patient to consider this option if pain persists. - Referral to orthopedics for further evaluation and management. - Your left knee X-ray showed severe cartilage loss at the medial joint space and moderate osteoarthritis; no fracture was seen. - Prednisone 50 mg once daily has been prescribed and sent to your [facility]. - A referral has been submitted for you to see an orthopedic/hiv prevention specialist in the [facility] system (you may choose another provider if preferred) to review your X-ray and discuss further treatment options, including cortisone injections, Synvisc (hyaluronic acid) injections, or knee replacement. - Please review the printed paperwork for your prescription and referral details. MDM Procedures Allergies As of Date: 05/28/2025 Noted Allergy Reaction DOLOBID (DIFLUNISAL) 08/25/2005 2 - Rash Date Reviewed: 05/28/2025 Reviewed by: Ursula Medina MA - Fully Assessed Reason for Visit: Knee Pain [132] Cmt: Left knee pain started this morning Primary Visit Diagnosis:Chronic pain of left knee [M25.562, G89.29] Order(s):XR KNEE GENERAL 4V AP BOTH/PA BOTH/LAT/MERC LEFT [3659628] Order #: [id number] FUTURE CONSULT PANEL TO ORTHOPAEDICS [790357] Order #: [id number]: 1 FUTURE predniSONE (DELTASONE) 50 mgTake 1 tablet by mouth once daily for 5 days.Disp: 5 tabletRfl: 0 Prescriptions as of 05/28/2025 - predniSONE (DELTASONE) 50 mg Take 1 tablet by mouth once daily for 5 days. - hydrOXYchloroQUINE (PLAQUENIL) 200 mg tablet Take by mouth once daily. - lisinopril (PRINIVIL) 10 mg tablet Take 1 tablet by mouth once daily. - atorvastatin (LIPITOR) 10 mg tablet Take 1 tablet by mouth once daily. - spironolactone (ALDACTONE) 25 mg tablet Take 0.5 tablets by mouth once daily. - mometasone (NASONEX) 50 mcg/actuation nasal spray Use 2 Sprays in the nose once daily. Rinse mouth after use. - MAGNESIUM ORAL Take by mouth as directed. - BIOTIN ORAL Take by mouth. - predniSONE (DELTASONE) 2.5 mg tablet Take 1 tablet by mouth once daily. Take ten tabs by mouth on day one and reduce by one a day till done. - folic acid 1 mg tablet Take 1 mg by mouth once daily. Take 2 tablets daily - DULoxetine (CYMBALTA) 30 mg capsule Take 30 mg by mouth once daily. - METHOTREXATE ORAL Take 5 mg by mouth. Take 1 tablet (more content not included)... Normal [facility] XR KNEE 4V AP/PA BOTH+LAT/ME R LTon 05-28-2025 XR KNEE 4V AP/PA BOTH+LAT/AWAIS LT * * *Final Report* * * DATE OF EXAM: May 28 2025 5:56PM WOX 5202 - XR KNEE 4V AP/PA BOTH+LAT/AWAIS LT / PROCEDURE REASON: multiple diagnoses * * * * Physician Interpretation * * * * EXAMINATION: XR KNEE 4V AP/PA BOTH+LAT/AWAIS LT CLINICAL HISTORY: Chronic left knee pain Comparison: None RESULT: Bones: No acute fracture, lytic or blastic lesion. No malalignment. Degenerative changes including tricompartmental osteophytosis and predominantly medial compartment joint space narrowing. Medial subluxation distal femur in relation to the tibia secondary to degenerative changes. Soft tissues: No acute finding. No radiopaque foreign body. IMPRESSION: Advanced degenerative changes of the left knee. [place]: [facility] Transcribe Date/Time: May 28 2025 6:47P Dictated by : DAVID CRAWFORD MD This examination was interpreted and the report reviewed and electronically signed by: DAVID CRAWFORD MD on May 28 2025 6:49PM EST [id number] Normal [facility] XR Knee - left 4 Viewson IMPRESSION: Advanced degenerative changes of the left knee. [place]: [facility] Transcribe Date/Time: May 28 2025 6:47P Dictated by : DAVID CRAWFORD MD This examination was interpreted and the report reviewed and electronically signed by: DAVID CRAWFORD MD on May 28 2025 6:49PM EST DIVISION OF RADIOLOGY * * *Final Report* * * DATE OF EXAM: May 28 2025 5:56PM WOX 5202 - XR KNEE 4V AP/PA BOTH+LAT/AWAIS LT / PROCEDURE REASON: multiple diagnoses * * * * Physician Interpretation * * * * EXAMINATION: XR KNEE 4V AP/PA BOTH+LAT/AWAIS LT CLINICAL HISTORY: Chronic left knee pain Comparison: None RESULT: Bones: No acute fracture, lytic or blastic lesion. No malalignment. Degenerative changes including tricompartmental osteophytosis and predominantly medial compartment joint space narrowing. Medial subluxation distal femur in relation to the tibia secondary to degenerative changes. Soft tissues: No acute finding. No radiopaque foreign body. DIVISION OF RADIOLOGY Provider, [facility] - 05/28/2025 * * *Final Report* * * DATE OF EXAM: May 28 2025 5:56PM WOX 5202 - XR KNEE 4V AP/PA BOTH+LAT/AWAIS LT / PROCEDURE REASON: multiple diagnoses * * * * Physician Interpretation * * * * EXAMINATION: XR KNEE 4V AP/PA BOTH+LAT/AWAIS LT CLINICAL HISTORY: Chronic left knee pain Comparison: None RESULT: Bones: No acute fracture, lytic or blastic lesion. No malalignment. Degenerative changes including tricompartmental osteophytosis and predominantly medial compartment joint space narrowing. Medial subluxation distal femur in relation to the tibia secondary to degenerative changes. Soft tissues: No acute finding. No radiopaque foreign body. IMPRESSION IMPRESSION: Advanced degenerative changes of the left knee. [place]: [facility] Transcribe Date/Time: May 28 2025 6:47P Dictated by : DAVID CRAWFORD MD This examination was interpreted and the report reviewed and electronically signed by: DAVID CRAWFORD MD on May 28 2025 6:49PM EST [facility] Radiology Study observation (narrative) [facility] XR Knee - left 4 ViewsOrdere d By: [facility] Provider on 05-28-2025 [facility] Absolute lymphocyte countOrd ered By: Sabrina Moran on 03-26-2025 Lymphocytes Auto (Unsp spec) [#/Vol] 2.14 10*3/uL 0.83-4.51 [facility] Absolute neutrophil countOrd ered By: Sabrina Moran on 03-26-2025 Neutrophils (Bld) [#/Vol] 6.1 10*3/uL 2.0-7.7 [facility] Anion gap in Serum or Plasma Ordered By: Sabrina Moran on 03-26-2025 Anion gap [Moles/Vol] 14 mmol/L 5-15 [facility] Automated lymphocyte count a s percentage of total leukocytesOrdered By: Sabrina Moran on 03-26-2025 Lymphocytes/100 WBC Auto (Unsp spec) 22.3 % 19-41 [facility] BUN/creatinine ratioOrdered By: [facility] Dean on 03-26-2025 Urea nitrogen/Creatinine [Mass ratio] 23.3 mg/mg High 10-20 [facility] Basophil percentageOrdered B y: Sabrina Moran on 03-26-2025 Basophils/100 WBC (Bld) 1.0 % 0-1 [facility] Bilirubin, totalOrdered By: Sabrinacruz Moran on 03-26-2025 Bilirubin [Mass/Vol] 0.37 mg/dL 0.00-1.30 [facility] CBC W/Diff, Automatedon 03-16 Absolute Lymph 2.14 X10 3/uL Normal 0.83-4.51 [facility] Comment on above: Performed By: #### L 500.4050, L100.0100 #### [facility] [address] [place], [address] Absolute Neut 6.1 X10 3/uL Normal 2.0-7.7 [facility] Comment on above: Performed By: #### L 500.4050, L100.0100 #### [facility] [address] [place], [address] Basophils/100 WBC (Bld) 1.0 % Normal 0-1 [facility] Comment on above: Performed By: #### L 500.4050, L100.0100 #### [facility] [address] [place], [address] Eosinophils/100 WBC (Bld) 2.6 % Normal 0-5 [facility] Comment on above: Performed By: #### L 500.4050, L100.0100 #### [facility] [address] [place], [address] Erythrocyte distribution width (RBC) [Ratio] 13.6 % Normal 11.6-14.6 [facility] Comment on above: Performed By: #### L 500.4050, L100.0100 #### [facility] [address] [place], [address] Hematocrit (Bld) [Volume fraction] 41.8 % Normal 37-47 [facility] Comment on above: Performed By: #### L 500.4050, L100.0100 #### [facility] [address] [place], [address] Hemoglobin (Bld) [Mass/Vol] 14.0 g/dL Normal 12.0-15.0 [facility] Comment on above: Performed By: #### L 500.4050, L100.0100 #### [facility] [address] [place], [address] IG% 1.100 High 0.0-0.9 [facility] Comment on above: Result Comment: IG% - Immature Granulocytes (promyelocytes, myelocytes and metamyelocytes) > 1% indicates that a LEFT SHIFT is Present. Performed By: #### L 500.4050, L100.0100 #### [facility] [address] [place], [address] Lymphocytes/100 WBC (Bld) 22.3 % Normal 19-41 [facility] Comment on above: Performed By: #### L 500.4050, L100.0100 #### [facility] [address] [place], [address] MCH (RBC) [Entitic mass] 30.6 pg Normal 27.0-32.0 [facility] Comment on above: Performed By: #### L 500.4050, L100.0100 #### [facility] [address] [place], [address] MCHC (RBC) [Mass/Vol] 33.5 g/dL Normal 32-36 [facility] Comment on above: Performed By: #### L 500.4050, L100.0100 #### [facility] [address] [place], [address] MCV (RBC) [Entitic vol] 91.5 fL Normal 81-99 [facility] Comment on above: Performed By: #### L 500.4050, L100.0100 #### [facility] [address] [place], [address] Monocytes/100 WBC (Bld) 9.4 % Normal 0-10 [facility] Comment on above: Performed By: #### L 500.4050, L100.0100 #### [facility] [address] [place], [address] Neutrophils/100 WBC (Bld) 63.6 % Normal 47-70 [facility] Comment on above: Performed By: #### L 500.4050, L100.0100 #### [facility] [address] [place], [address] Nucleated RBC (Bld) [#/Vol] 0 10*3/uL Normal 0-5 [facility] Comment on above: Performed By: #### L 500.4050, L100.0100 #### [facility] [address] [place], [address] Platelet mean volume (Bld) [Entitic vol] 10.0 fL Normal 6.2-12.0 [facility] Comment on above: Performed By: #### L 500.4050, L100.0100 #### [facility] [address] [place], [address] Platelets (Bld) [#/Vol] 256 10*3/uL Normal 150-450 [facility] Comment on above: Performed By: #### L 500.4050, L100.0100 #### [facility] [address] [place], [address] RBC (Bld) [#/Vol] 4.57 10*6/uL Normal 4.2-5.4 [facility] Comment on above: Performed By: #### L 500.4050, L100.0100 #### [facility] [address] [place], [address] RDW SD 44.8 fl High 35.1-43.9 [facility] Comment on above: Performed By: #### L 500.4050, L100.0100 #### [facility] [address] [place], [address] WBC (Bld) [#/Vol] 9.6 10*3/uL Normal 4.4-11.0 [facility] Comment on above: Performed By: #### L 500.4050, L100.0100 #### [facility] [address] [place], [address] Carbon dioxide, total [Moles /volume] in Central venous bloodOrdered By: Sabrina Moran on 03-26-2025 CO2 [Moles/Vol] 21.5 mmol/L 21.0-32.0 [facility] Chloride assayOrdered By: Christel Moran on 03-26-2025 Chloride [Moles/Vol] 104 mmol/L 98-108 [facility] Comprehensive Metabolic Prof ilon 03-26-2025 Albumin [Mass/Vol] 4.2 g/dL Normal 3.4-4.8 [facility] Comment on above: Performed By: #### L 500.4050, L100.0100 #### [facility] [address] [place], [address] Albumin/Globulin [Mass ratio] 1.5 {ratio} Normal 0.9-2.4 [facility] Comment on above: Performed By: #### L 500.4050, L100.0100 #### [facility] [address] [place], [address] ALK PHOS 67 U/L Normal 35-104 [facility] Comment on above: Performed By: #### L 500.4050, L100.0100 #### [facility] [address] [place], [address] ALT [Catalytic activity/Vol] 33 U/L Normal <=34 [facility] Comment on above: Performed By: #### L 500.4050, L100.0100 #### [facility] [address] [place], [address] AST [Catalytic activity/Vol] 29 U/L Normal <=31 [facility] Comment on above: Performed By: #### L 500.4050, L100.0100 #### [facility] [address] [place], [address] Bilirubin [Mass/Vol] 0.37 mg/dL Normal 0.00-1.30 [facility] Comment on above: Performed By: #### L 500.4050, L100.0100 #### [facility] [address] [place], [address] BUN/CRE 23.3 RATIO High 10-20 [facility] Comment on above: Performed By: #### L 500.4050, L100.0100 #### [facility] [address] [place], [address] Calcium [Mass/Vol] 9.5 mg/dL Normal 7.6-11.0 [facility] Comment on above: Performed By: #### L 500.4050, L100.0100 #### [facility] [address] [place], [address] Chloride [Moles/Vol] 104 mmol/L Normal 98-108 [facility] Comment on above: Performed By: #### L 500.4050, L100.0100 #### [facility] [address] [place], [address] CO2 [Moles/Vol] 21.5 mmol/L Normal 21.0-32.0 [facility] Comment on above: Performed By: #### L 500.4050, L100.0100 #### [facility] [address] [place], [address] Creatinine [Mass/Vol] 0.88 mg/dL Normal 0.70-1.20 [facility] Comment on above: Performed By: #### L 500.4050, L100.0100 #### [facility] [address] [place], [address] GAP 14 Normal 5-15 [facility] Comment on above: Performed By: #### L 500.4050, L100.0100 #### [facility] [address] [place], [address] GFR/1.73 sq M.predicted among non-blacks MDRD (S/P/Bld) [Vol rate/Area] 72 mL/min/{1.73_m2} Normal >60 [facility] Comment on above: Result Comment: mL/m in/1.73m2 CKD-EPI Creatinine Equation (2020) Performed By: #### L 500.4050, L100.0100 #### [facility] [address] [place], [address] Globulin (S) [Mass/Vol] 2.7 g/dL Normal 2.2-4.2 [facility] Comment on above: Performed By: #### L 500.4050, L100.0100 #### [facility] [address] [place], [address] Glucose [Mass/Vol] 111 mg/dL High 70-99 [facility] Comment on above: Performed By: #### L 500.4050, L100.0100 #### [facility] [address] [place], [address] Potassium [Moles/Vol] 3.9 mmol/L Normal 3.3-5.1 [facility] Comment on above: Performed By: #### L 500.4050, L100.0100 #### [facility] [address] [place], [address] Sodium [Moles/Vol] 139 mmol/L Normal 133-145 [facility] Comment on above: Performed By: #### L 500.4050, L100.0100 #### [facility] [address] [place], [address] T PROT 6.9 g/dL Normal 5.9-8.4 [facility] Comment on above: Performed By: #### L 500.4050, L100.0100 #### [facility] [address] [place], [address] Urea nitrogen [Mass/Vol] 21 mg/dL High 4-19 [facility] Comment on above: Performed By: #### L 500.4050, L100.0100 #### [facility] [address] [place], [address] Eosinophil percentageOrdered By: Sabrina Moran on 03-26-2025 Eosinophils/100 WBC (Bld) 2.6 % 0-5 [facility] Erythrocyte distribution wid th ratioOrdered By: Sabrina Moran on 03-26-2025 Erythrocyte distribution width (RBC) [Ratio] 13.6 % 11.6-14.6 [facility] Erythrocyte distribution wid th standard deviationOrdered By: Sabrina Moran on 03-26-2025 Erythrocyte distribution width (RBC) [Ratio] 44.8 fl High 35.1-43.9 [facility] Glomerular filtration rate ( GFR) estimation/1.73 sq m using serum, plasma, or whole bOrdered By: Sabrina Moran on 03-26-2025 GFR/1.73 sq M.predicted among non-blacks MDRD (S/P/Bld) [Vol rate/Area] 72 mL/min/{1.73_m2} >60 [facility] Comment on above: mL/min/1.73m2 CKD-EP I Creatinine Equation (2020) Hematocrit Auto (Bld) [Volum e fraction]Ordered By: Sabrina Moran on 03-26-2025 Hematocrit (Bld) [Volume fraction] 41.8 % 37-47 [facility] Hemoglobin measurementOrdere d By: Sabrina Moran on 03-26-2025 Hemoglobin (Bld) [Mass/Vol] 14.0 g/dL 12.0-15.0 [facility] Immature granulocytes/100 WB C Auto (Bld)Ordered By: Sabrina Moran on 03-26-2025 Immature granulocytes/100 WBC (Bld) 1.100 % High 0.0-0.9 [facility] Comment on above: IG% - Immature Granu locytes (promyelocytes, myelocytes and metamyelocytes) > 1% indicates that a LEFT SHIFT is Present. Laboratory - Chemistry and C hemistry - challengeOrdered By: Sabrina Moran on 03-26-2025 AST [Catalytic activity/Vol] 29 U/L <32 [facility] MCV (mean corpuscular volume ) determinationOrdered By: Sabrina Moran on 03-26-2025 MCV (RBC) [Entitic vol] 91.5 fL 81-99 [facility] Mean corpuscular hemoglobin (MCH) determinationOrdered By: Sabrina Moran on 03-26-2025 MCH (RBC) [Entitic mass] 30.6 pg 27.0-32.0 [facility] Mean corpuscular hemoglobin concentration (MCHC) determinationOrdered By: Sabrina Moran on 03-26-2025 MCHC (RBC) [Mass/Vol] 33.5 g/dL 32-36 [facility] Mean platelet volume determi nationOrdered By: Sabrina Moran on 03-26-2025 Platelet mean volume (Bld) [Entitic vol] 10.0 fL 6.2-12.0 [facility] Monocyte percentageOrdered B y: Sabrina Moran on 03-26-2025 Monocytes/100 WBC (Bld) 9.4 % 0-10 [facility] Neutrophil percentageOrdered By: Sabrina Moran on 03-26-2025 Neutrophils/100 WBC (Bld) 63.6 % 47-70 [facility] Nucleated red blood cell per centageOrdered By: Sabrina Moran on 03-26-2025 Nucleated RBC/100 WBC (Bld) [Ratio] 0 % 0-5 [facility] Platelet countOrdered By: Christel Moran on 03-26-2025 Platelets (Bld) [#/Vol] 256 10*3/uL 150-450 [facility] Potassium measurement (mass/ volume)Ordered By: Sabrina Moran on 03-26-2025 Potassium (Unsp spec) [Mass/Vol] 3.9 mmol/L 3.3-5.1 [facility] RBC Auto (Bld) [#/Vol]Ordere d By: Sabrina Moran on 03-26-2025 RBC (Bld) [#/Vol] 4.57 10*6/uL 4.2-5.4 [facility] Serum creatinine measurement (mass/volume)Ordered By: Sabrina Moran on 03-26-2025 Creatinine [Mass/Vol] 0.88 mg/dL 0.70-1.20 [facility] Serum globulin measurementOr dered By: Sabrina Moran on 03-26-2025 Globulin (S) [Mass/Vol] 2.7 g/dL 2.2-4.2 [facility] Serum glucose measurement (m ass/volume)Ordered By: Sabrina Moran on 03-26-2025 Glucose [Mass/Vol] 111 mg/dL High 70-99 [facility] Serum or plasma alanine callahan otransferase (ALT) measurementOrdered By: Sabrina Moran on 03-26-2025 ALT [Catalytic activity/Vol] 33 U/L <35 [facility] Serum or plasma albumin shadia urement (mass/volume)Ordered By: Sabrina Moran on 03-26-2025 Albumin [Mass/Vol] 4.2 g/dL 3.4-4.8 [facility] Serum or plasma albumin/glob ulin mass ratioOrdered By: Sabrina Moran on 03-26-2025 Albumin/Globulin [Mass ratio] 1.5 {ratio} 0.9-2.4 [facility] Serum or plasma alkaline corie sphatase measurementOrdered By: Sabrina Moran on 03-26-2025 ALP [Catalytic activity/Vol] 67 U/L 35-104 [facility] Serum or plasma calcium shadia urement (mass/volume)Ordered By: Sabrina Moran on 03-26-2025 Calcium [Mass/Vol] 9.5 mg/dL 7.6-11.0 [facility] Serum or plasma urea nitroge n measurement (mass/volume)Ordered By: Sabrina Moran on 03-26-2025 Urea nitrogen [Mass/Vol] 21 mg/dL High 4-19 [facility] Sodium levelOrdered By: Katharine Moran on 03-26-2025 Sodium [Moles/Vol] 139 mmol/L 133-145 [facility] Total proteinOrdered By: Delisa Moran on 03-26-2025 Protein [Mass/Vol] 6.9 g/dL 5.9-8.4 [facility] White blood cell (WBC) count Ordered By: Sabrina Moran on 03-26-2025 WBC (Bld) [#/Vol] 9.6 10*3/uL 4.4-11.0 [facility] 02-16-2025 CN Office Visit (UCWSTR ) -- KATE TATUM ([id number]) 1955 F Date Time Provider Department 02/16/25 9:45 AM MADHAV IGLESIAS [facility] During your visit today, we recorded the following information about you: Temperature Pulse Respiration Blood pressure 97 degrees 78/minute 18/minute 118/75 Weight 103 kg Madhav Iglesias APRN.CIRCULAR KNIFE CUTTER MACHINE 02/16/2025 10:00 AM Signed This note was created using [employer]. Subjective Kate Coffey is a 69 year old female. HPI Patient presents today complaining of 2 days of sensation of the right ear being clogged. She also notes some sinus congestion. She otherwise denies any fever cough or sore throat. Review of Systems As above Objective BP 118/75 Pulse 78 Temp 36.1 ?C (97 ?F) Resp 18 Wt 103 kg (227 lb 1.2 oz) SpO2 98% BMI 42.21 kg/m? Physical Exam Vitals and nursing note reviewed. Constitutional: General: She is not in acute distress. Appearance: Normal appearance. She is not ill-appearing. HENT: Head: Normocephalic. Left Ear: Tympanic membrane normal. Ears: Comments: Right TM is partially occluded by cerumen Pulmonary: Effort: Pulmonary effort is normal. Musculoskeletal: General: Normal range of motion. Cervical back: Normal range of motion. Skin: General: Skin is warm and dry. Neurological: General: No focal deficit present. Mental Status: She is alert. Psychiatric: Mood and Affect: Mood normal. Behavior: Behavior normal. Assessment and Plan ASSESSMENT/PLAN: 1. Impacted cerumen of right ear - ICD9: 380.4, ICD10: H61.21 Right ear was flushed by nursing staff with good results. Patient notes 100% improvement in her symptoms. She will follow-up with PCP as needed. Madhav Iglesias APRN.CIRCULAR KNIFE CUTTER MACHINE Marianela Walden LPN 02/16/2025 3:40 PM Signed R ear flushed with warm water/h2o2. Large amount of cerumen removed. Patient tolerated procedure well. Marianela Walden LPN Allergies As of Date: 02/16/2025 Noted Allergy Reaction DOLOBID (DIFLUNISAL) 08/25/2005 2 - Rash Date Reviewed: 02/16/2025 Reviewed by: Madhav Iglesias APRN.CIRCULAR KNIFE CUTTER MACHINE - Fully Assessed Reason for Visit: Ear Problem [38] Cmt: Clogged and ringing x 2 days Some sinus congestion on and off Primary Visit Diagnosis:Impacted cerumen of right ear [H61.21] Prescriptions as of 02/16/2025 - hydrOXYchloroQUINE (PLAQUENIL) 200 mg tablet Take by mouth once daily. - lisinopril (PRINIVIL) 10 mg tablet Take 1 tablet by mouth once daily. - atorvastatin (LIPITOR) 10 mg tablet Take 1 tablet by mouth once daily. - spironolactone (ALDACTONE) 25 mg tablet Take 0.5 tablets by mouth once daily. - mometasone (NASONEX) 50 mcg/actuation nasal spray Use 2 Sprays in the nose once daily. Rinse mouth after use. - MAGNESIUM ORAL Take by mouth as directed. - BIOTIN ORAL Take by mouth. - predniSONE (DELTASONE) 2.5 mg tablet Take 1 tablet by mouth once daily. Take ten tabs by mouth on day one and reduce by one a day till done. - folic acid 1 mg tablet Take 1 mg by mouth once daily. Take 2 tablets daily - DULoxetine (CYMBALTA) 30 mg capsule Take 30 mg by mouth once daily. - METHOTREXATE ORAL Take 5 mg by mouth. Take 1 tablet weekly - calcium citrate-vitamin D3 (CALCIUM CITRATE + D) 315-200 mg-unit tab Take 1 tablet by mouth twice daily with meals. - ascorbic acid, vitamin C, (VITAMIN C) 500 mg tablet Take 500 mg by mouth once daily. - aspirin, enteric coated (ASPIRIN, ENTERIC COATED) 81 mg EC tablet Take 81 mg by mouth once daily. - multivitamin tablet Take 1 tablet by mouth once daily. - acetaminophen (TYLENOL) 500 mg tablet Take 500 mg by mouth daily at bedtime. Problem List As Of Date 02/16/2025 Noted Resolved Hirsutism [L68.0] Dysmetabolic syndrome X [E88.810] Mixed hyperlipidemia [E78.2] Plantar fasciitis [M72.2] Breast mass in female [N63.0] 04/01/2014 Abnormal mammogram [R92.8] 03/17/2016 03/31/2016 Apocrine cyst [L74.8] 03/31/2016 Essential hypertension [I10] Controlled type 2 diabetes mellitus without com*12/12/2017 Obesity, Class III, BMI 40-49.9 (morbid obesity*12/12/2017 Diabetic eye exam (HCC) [Z01.00, E11.9] 06/08/2018 Polyarthralgia [M25.50] 09/26/2018 Well adult exam [Z00.00] 12/02/2020 Rheumatoid arthritis involving multiple sites (*06/01/2021 Fibromyalgia [M79.7] 06/01/2021 Advance directive discussed with patient [Z71.8*07/06/2022 Bunion, right [M21.611] 06/26/2023 Hemangioma of liver [D18.03] 09/18/2023 Pancreatic cyst [K86.2] 09/18/2023 Encounter Status:Closed by MADHAV IGLESIAS on 02/16/25 [facility] CNOVon 02-03-2025 CNOV Office Visit (UCTR ) -- KATE TATUM ([id number]) 1955 F Date Time Provider Department 02/03/25 12:00 PM GREGORY NINO [facility] During your visit today, we recorded the following information about you: Temperature Pulse Respiration Blood pressure 98.8 degrees 92/minute 18/minute 134/80 Weight 103.6 kg Gregory Nino MD 02/03/2025 1:00 PM Signed [facility] Subjective Kate Coffey is a 69 year old female. Patient presents with: Pain (Shoulder Pain): right x 1 day Shoulder pain: Duration: started last night Location: anterior right shoulder Character: sharp, tight Radiation: No. Aggravating: limited ability to move, not bothered by neck movement Relieving: standing Pain relievers: Prednisone, Plaquenil, acetaminophen, topical lidocaine Associated: History of RA, had similar pain in the left shoulder last week Pertinent negatives: Denies numbness, weakness, known injury, fever Pain (Shoulder Pain) Pertinent negatives include no chest pain or fever. Review of Systems Constitutional: Negative for fever. Respiratory: Negative for shortness of breath. Cardiovascular: Negative for chest pain and palpitations. Neurological: Negative for dizziness. Objective BP 134/80 Pulse 92 Temp 37.1 ?C (98.8 ?F) Resp 18 Wt 103.6 kg (228 lb 6.3 oz) SpO2 97% BMI 42.46 kg/m? Physical Exam Constitutional: General: She is not in acute distress. Eyes: Extraocular Movements: Extraocular movements intact. Pupils: Pupils are equal, round, and reactive to light. Neck: Comments: No shoulder pain induced with range of motion Cardiovascular: Rate and Rhythm: Normal rate and regular rhythm. Pulmonary: Effort: Pulmonary effort is normal. Breath sounds: Normal breath sounds. Musculoskeletal: Right wrist: Normal pulse. Left wrist: Normal pulse. Cervical back: Normal range of motion and neck supple. Comments: SHOULDER: right compared to left. No deformity or swelling. Palpation of clavicle non-tender, AC joint non-tender, glenohumeral joint tender anterior joint. ROM: limited abduction or flexion due to pain. Neurological: Mental Status: She is alert. Latest Ref Rng 06/19/2024 12/24/2024 Hemoglobin A1C 4.3 - 5.6 % 5.7 (H) 5.5 Latest Ref Rng 06/19/2024 eGFR >=60 mL/min/1.73m? 76 {ASSESSMENT/PLAN: 1. Acute pain of right shoulder - ICD9: 719.41, ICD10: M25.511 (primary diagnosis) 2. Bursitis of right shoulder - ICD9: 726.10, ICD10: M75.51 - XR SHOULDER [id number] AP/TRUE AP RIGHT -Mild acromioclavicular joint degenerative changes. Suspect bursitis/tendinitis due to limited range of motion without injury or abnormal findings on x-ray exam. Treat with anti-inflammatory, ice, heat. Anti-inflammatory options are limited to steroid (she cannot take NSAID with methotrexate). 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 Shoulder steroid injection can be considered through rheumatology or PCP. She is able to list short and long-term side effects of steroid from prior discussions. Gregory Nino MD History and Record Review External record(s) reviewed: prior outpatient record. Findings from review of outpatient records: Hemoglobin A1c 5.5 in December shows controlled diabetes mellitus. Differential Diagnoses - Left shoulder bursitis is more likely for the following reason(s): suggested by HANDP - Dislocation or fracture is less likely for the following reason(s): HANDP not suggestive - Joint infection is less likely for the following reason(s): No fever, swelling, or erythema - Atypical angina is less likely for the following reason(s): HANDP not suggestive Procedures Allergies As of Date: 02/03/2025 Noted Allergy Reaction DOLOBID (DIFLUNISAL) 08/25/2005 2 - Rash Date Reviewed: 02/03/2025 Reviewed by: Tonja Rincon MA - Fully Assessed Reason for Visit: Pain (Shoulder Pain) [1343] Cmt: right x 1 day Primary Visit Diagnosis:Acute pain of right shoulder [M25.511] Other Visit Diagnosis:Bursitis of right shoulder [M75.51] Order(s):XR SHOULDER [id number] AP/TRUE AP RIGHT [[id number]] Order #: [id number] FUTURE Prescriptions as of 02/03/2025 - hydrOXYchloroQUINE (PLAQUENIL) 200 mg tablet Take by mouth once daily. - lisinopril (PRINIVIL) 10 mg tablet Take 1 tablet by mouth once daily. - atorvastatin (LIPITOR) 10 mg tablet Take 1 tablet by mouth once daily. - spironolactone (ALDACTONE) 25 mg tablet Take 0.5 tablets by mouth once daily. - mometasone (NASONEX) 50 mcg/actuation nasal spray Use 2 Sprays in the nose once daily. Rinse mouth after use. - MAGNESIUM ORAL Take by mouth as directed. - BIOTIN ORAL Take by mouth. - predniSONE (DELTASONE) 2.5 mg tablet Take 1 tablet by mouth once daily. Take ten tabs by mouth on day one and reduce by one a day till done. - folic acid 1 mg table (more content not included)... Normal [facility] XR SHOULDER 2V AP/TRUE AP RT on 02-03-2025 XR SHOULDER 2V AP/TRUE AP RT * * *Final Report* * * DATE OF EXAM: Feb 03 2025 12:02PM WOX [id number] - XR SHOULDER 2V AP/TRUE AP RT / PROCEDURE REASON: Acute pain of right shoulder * * * * Physician Interpretation * * * * TITLE: XR SHOULDER 2V AP/TRUE AP RT CLINICAL INDICATION: Shoulder pain TECHNIQUE: 2 view radiographic study of the right shoulder COMPARISON: Radiograph dated 05/07/2028 FINDINGS: No acute fracture or dislocation identified. Mild acromioclavicular joint degenerative changes with mild hypertrophic spur formation. IMPRESSION: Mild acromioclavicular joint degenerative changes. [place] Transcribe Date/Time: Feb 03 2025 12:04P Dictated by : MORGAN ASIF MD This examination was interpreted and the report reviewed and electronically signed by: MORGAN ASIF MD on Feb 03 2025 12:10PM EST [id number] Normal [facility] XR Shoulder - right 2 Viewso n 02-03-2025 Radiology Study observation (narrative) [facility] IMPRESSION: Mild acromioclavicular joint degenerative changes. [place]: [employer] Transcribe Date/Time: Feb 03 2025 12:04P Dictated by : MORGAN ASIF MD This examination was interpreted and the report reviewed and electronically signed by: MORGAN ASIF MD on Feb 03 2025 12:10PM EST DIVISION OF RADIOLOGY * * *Final Report* * * DATE OF EXAM: Feb 03 2025 12:02PM [id number] - XR SHOULDER 2V AP/TRUE AP RT / PROCEDURE REASON: Acute pain of right shoulder * * * * Physician Interpretation * * * * TITLE: XR SHOULDER 2V AP/TRUE AP RT CLINICAL INDICATION: Shoulder pain TECHNIQUE: 2 view radiographic study of the right shoulder COMPARISON: Radiograph dated 05/07/2028 FINDINGS: No acute fracture or dislocation identified. Mild acromioclavicular joint degenerative changes with mild hypertrophic spur formation. DIVISION OF RADIOLOGY Provider, Quang ryan Lamar - 02/03/2025 * * *Final Report* * * DATE OF EXAM: Feb 03 2025 12:02PM [id number] - XR SHOULDER 2V AP/TRUE AP RT / PROCEDURE REASON: Acute pain of right shoulder * * * * Physician Interpretation * * * * TITLE: XR SHOULDER 2V AP/TRUE AP RT CLINICAL INDICATION: Shoulder pain TECHNIQUE: 2 view radiographic study of the right shoulder COMPARISON: Radiograph dated 05/07/2028 FINDINGS: No acute fracture or dislocation identified. Mild acromioclavicular joint degenerative changes with mild hypertrophic spur formation. IMPRESSION IMPRESSION: Mild acromioclavicular joint degenerative changes. [place]: [facility] Transcribe Date/Time: Feb 03 2025 12:04P Dictated by : MORGAN ASIF MD This examination was interpreted and the report reviewed and electronically signed by: MORGAN ASIF MD on Feb 03 2025 12:10PM EST [facility] XR Shoulder - right 2 ViewsO rdered By: Quang Provider on 02-03-2025 [facility] KATE [facility] ([id number]) 1955 F Date Time Provider Department 01/17/25 LOKESH ESPITIA During your visit today, we recorded the following information about you: Lokesh Espitia MA 01/17/2025 4:19 PM Signed Received in provider mail box. Physical form to provider to complete. Given to provider. LokeshCRUZ Rose Jeffrey A, MD 01/21/2025 8:30 PM Signed Form completed. Lokesh Espitia MA 01/22/2025 8:15 AM Signed Faxed. CRUZ Thomas Beth, LPN 01/23/2025 3:40 PM Signed Patient calling asking about form. Went over notes below and faxed 01/22 with understanding. Allergies As of Date: 01/17/2025 Noted Allergy Reaction DOLOBID (DIFLUNISAL) 08/25/2005 2 - Rash Date Reviewed: 12/25/2024 Reviewed by: Sue Urena MA - Fully Assessed Reason for Visit: Forms [913] Cmt: Employment physical form Prescriptions as of 01/23/2025 - lisinopril (PRINIVIL) 10 mg tablet Take 1 tablet by mouth once daily. - atorvastatin (LIPITOR) 10 mg tablet Take 1 tablet by mouth once daily. - spironolactone (ALDACTONE) 25 mg tablet Take 0.5 tablets by mouth once daily. - mometasone (NASONEX) 50 mcg/actuation nasal spray Use 2 Sprays in the nose once daily. Rinse mouth after use. - MAGNESIUM ORAL Take by mouth as directed. - BIOTIN ORAL Take by mouth. - predniSONE (DELTASONE) 2.5 mg tablet Take 1 tablet by mouth once daily. Take ten tabs by mouth on day one and reduce by one a day till done. - folic acid 1 mg tablet Take 1 mg by mouth once daily. Take 2 tablets daily - DULoxetine (CYMBALTA) 30 mg capsule Take 30 mg by mouth once daily. - METHOTREXATE ORAL Take 5 mg by mouth. Take 1 tablet weekly - calcium citrate-vitamin D3 (CALCIUM CITRATE + D) 315-200 mg-unit tab Take 1 tablet by mouth twice daily with meals. - ascorbic acid, vitamin C, (VITAMIN C) 500 mg tablet Take 500 mg by mouth once daily. - aspirin, enteric coated (ASPIRIN, ENTERIC COATED) 81 mg EC tablet Take 81 mg by mouth once daily. - multivitamin tablet Take 1 tablet by mouth once daily. - acetaminophen (TYLENOL) 500 mg tablet Take 500 mg by mouth daily at bedtime. Problem List As Of Date 01/17/2025 Noted Resolved Hirsutism [L68.0] Dysmetabolic syndrome X [E88.810] Mixed hyperlipidemia [E78.2] Plantar fasciitis [M72.2] Breast mass in female [N63.0] 04/01/2014 Abnormal mammogram [R92.8] 03/17/2016 03/31/2016 Apocrine cyst [L74.8] 03/31/2016 Essential hypertension [I10] Controlled type 2 diabetes mellitus without com*12/12/2017 Obesity, Class III, BMI 40-49.9 (morbid obesity*12/12/2017 Diabetic eye exam (HCC) [Z01.00, E11.9] 06/08/2018 Polyarthralgia [M25.50] 09/26/2018 Well adult exam [Z00.00] 12/02/2020 Rheumatoid arthritis involving multiple sites (*06/01/2021 Fibromyalgia [M79.7] 06/01/2021 Advance directive discussed with patient [Z71.8*07/06/2022 Bunion, right [M21.611] 06/26/2023 Hemangioma of liver [D18.03] 09/18/2023 Pancreatic cyst [K86.2] 09/18/2023 Encounter Status:Closed by LOKESH ESPITIA on 01/22/25 Normal [facility] BUDDY SCREENING W TOMOon 12-27 BUDDY SCREENING W CHASE * * *Final Report* * * DATE OF EXAM: Dec 27 2024 11:26AM WR [id number] - BUDDY SCREENING W CHASE / PROCEDURE REASON: Encounter for screening mammogram for breast cancer * * * * Physician Interpretation * * * * RESULT: [facility] [address] [place] [address] #[id number] - BUDDY SCREENING W CHASE HISTORY: 69 year-old patient seen for screening. Patient is asymptomatic in both breasts. Patient states no personal history of breast cancer. COMPARISON STUDIES: The present examination has been compared to prior imaging studies dated 04/15/2019 (mammogram), 10/21/2020 (mammogram), 10/22/2021 (mammogram), 01/23/2024 (mammogram) and 02/07/2024 (mammogram). MAMMOGRAM TECHNIQUE: The study was acquired using full field digital technology and interpreted from soft copy. Digital Breast Tomosynthesis (DBT) images were obtained and used to assist in the interpretation of this examination. MAMMOGRAM FINDINGS: The breasts are almost entirely fatty. No suspicious masses, calcifications or other abnormalities are seen in either breast. There are no significant interval changes. IMPRESSION: There is no mammographic evidence of malignancy in either breast. Routine screening mammogram is recommended. Annual mammogram will be due in 1 year. BI-RADS Category 1: Negative RISK: Based on the Tyrer-Cuzick (TC) risk assessment model, this patient has a 2.2% lifetime risk of developing breast cancer, meaning they are at average risk for developing breast cancer. However, this is only an estimate based on available history provided on the patient's questionnaire. We encourage all patients to talk with their providers about these results, further recommendations for managing breast health, and appropriate supplemental screening options if the patient has dense breast tissue. Interpreting Radiologist: Tiffanie Shen M.D. Electronically signed on: 12/28/2024 [place]: PHYLICIA Transcribe Date/Time: Dec 27 2024 11:14A Dictated by: TIFFANIE SHEN MD This examination was interpreted and the report reviewed and electronically signed by: TIFFANIE SHEN MD on Dec 28 2024 7:37PM EST [id number] Normal [facility] CNOVon 12-25-2024 CNOV Office Visit (FAMPWS ) -- KATE TATUM ([id number]) 1955 F Date Time Provider Department 12/25/24 12:40 PM [facility] During your visit today, we recorded the following information about you: Temperature Pulse Blood pressure Weight 98.6 degrees 93/minute 122/74 101.5 kg Vanessa Berg PA-C 12/25/2024 1:17 PM Signed Chief Complaint Patient presents with: F/U 6 Month HPI Kate Coffey is a 69 year old female who presents here today for Chronic Medical Conditions.. Patient with hx of HTN, hyperlipidemia, DM2, RA, fibro and those as below. Overall doing well. Denies specific concerns. Fibromyalgia: - Kate reports intermittent neuropathy, described as neurothrombia, associated with fibromyalgia. - Discontinued Enbrel in October due to insurance issues; reports no significant increase in pain since stopping the medication. Hyperlipidemia: - Taking atorvastatin 10 mg daily. - Recent dietary changes include increased intake of fruits and vegetables. - Consumed Girl Clinical Coordinator cookies recently, which is unusual for her diet. Hypertension: - Taking lisinopril. - No recent changes in medication. Weight Loss: - Lost approximately 8-10 lbs. - Attributes weight loss to increased consumption of fruits and vegetables. Depression: - Kate reports feeling down several days in the past two weeks due to job loss. - Denies feeling hopeless or depressed most days. Lifestyle: - Denies tobacco use. - Scheduled for an eye exam on Monday. - Last Pap smear in 2017; does not recall any abnormal results. Past medical history, appointments, medications, allergies reviewed. 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 Essential hypertension Fibromyalgia 06/01/2021 Hemangioma of liver 09/18/2023 Right lob: MRI 09/2023 Hirsutism Migraine Mixed hyperlipidemia Obesity, Class III, BMI 40-49.9 (morbid obesity) ([facility]) 12/12/2017 Pancreatic cyst 09/18/2023 MRI: 09/2023 needs repeat imaging in 09/2024 Plantar fasciitis Polyarthralgia 09/26/[address] Montenegro Rheumatoid arthritis involving multiple sites ([facility]) 06/01/2021 Dr. Quigley Well adult exam 12/02/2020 Last done: 02/27/2019 Previous Surgical History PAST SURGICAL HISTORY Procedure Laterality Date CARPAL TUNNEL Right 09/28/2018 COLONOSCOPY 02/2016 repeat 5 years COLONOSCOPY FLX DX W/COLLJ SPEC WHEN PFRMD 05/09/2013 Colonoscopy COLONOSCOPY FLX DX W/COLLJ SPEC WHEN PFRMD 06/30/2021 PAST SURGICAL HISTORY OF heel spur PAST SURGICAL HISTORY OF wisdom teeth Family History FAMILY HISTORY Problem Relation Age of Onset other (meningitis) Mother encephalitis other (bladder cancer) Father Diabetes Sister Heart Sister AICD Detached Retina Brother Diabetes Brother Colon Polyps Brother COPD Brother Diabetes Maternal Grandmother Heart Maternal Grandmother Diabetes Paternal Grandmother Diabetes Paternal Grandfather Patient Allergies ALLERGIES Allergen Reactions Dolobid [Diflunisal] Rash Current Medications Current Outpatient Medications on File Prior to Visit Medication Sig spironolactone (ALDACTONE) 25 mg tablet Take 0.5 tablets by mouth once daily. lisinopril (PRINIVIL) 10 mg tablet Take 1 tablet by mouth once daily. atorvastatin (LIPITOR) 10 mg tablet Take 1 tablet by mouth once daily. mometasone (NASONEX) 50 mcg/actuation nasal spray Use 2 Sprays in the nose once daily. Rinse mouth after use. MAGNESIUM ORAL Take by mouth as directed. BIOTIN ORAL Take by mouth. etanercept (ENBREL) 25 mg (1 mL) injection Inject 0.4 mg/kg/dose subcutaneously one time only. weekly predniSONE (DELTASONE) 2.5 mg tablet Take 1 tablet by mouth once daily. Take ten tabs by mouth on day one and reduce by one a day till done. DULoxetine (CYMBALTA) 30 mg capsule Take 30 mg by mouth once daily. METHOTREXATE ORAL Take 5 mg by mouth. Take 1 tablet weekly calcium citrate-vitamin D3 (CALCIUM CITRATE + D) 315-200 mg-unit tab Take 1 tablet by mouth twice daily with meals. ascorbic acid, vitamin C, (VITAMIN C) 500 mg tablet Take 500 mg by mouth once daily. aspirin, enteric coated (ASPIRIN, ENTERIC COATED) 81 mg EC tablet Take 81 mg by mouth once daily. multivitamin tablet Take 1 tablet by mouth once daily. acetaminophen (TYLENOL) 500 mg tablet Take 500 mg by mouth da (more content not included)... Normal [facility] Komal 12-25-2024 CNPN Telephone (FAMWS) -- LOLA COFFEYKATE ([id number]) 1955 F Date Time Provider Department 12/25/24 V[facility]ESSA BERG [facility] During your visit today, we recorded the following information about you: Vanessa Berg PA-C 12/25/2024 1:15 PM Signed Let patient know that her A1c became available at 1:11. Just minutes after she left. But it's 5.5 which is great!. Thanks. LINDSEY Ambrose Jazzmin, MA 12/25/2024 2:48 PM Signed Pt informed Sue Urena MA Allergies As of Date: 12/25/2024 Noted Allergy Reaction DOLOBID (DIFLUNISAL) 08/25/2005 2 - Rash Date Reviewed: 12/25/2024 Reviewed by: Sue Urena MA - Fully Assessed Reason for Visit: Results [95] Prescriptions as of 12/25/2024 - lisinopril (PRINIVIL) 10 mg tablet Take 1 tablet by mouth once daily. - atorvastatin (LIPITOR) 10 mg tablet Take 1 tablet by mouth once daily. - spironolactone (ALDACTONE) 25 mg tablet Take 0.5 tablets by mouth once daily. - mometasone (NASONEX) 50 mcg/actuation nasal spray Use 2 Sprays in the nose once daily. Rinse mouth after use. - MAGNESIUM ORAL Take by mouth as directed. - BIOTIN ORAL Take by mouth. - predniSONE (DELTASONE) 2.5 mg tablet Take 1 tablet by mouth once daily. Take ten tabs by mouth on day one and reduce by one a day till done. - folic acid 1 mg tablet Take 1 mg by mouth once daily. Take 2 tablets daily - DULoxetine (CYMBALTA) 30 mg capsule Take 30 mg by mouth once daily. - METHOTREXATE ORAL Take 5 mg by mouth. Take 1 tablet weekly - calcium citrate-vitamin D3 (CALCIUM CITRATE + D) 315-200 mg-unit tab Take 1 tablet by mouth twice daily with meals. - ascorbic acid, vitamin C, (VITAMIN C) 500 mg tablet Take 500 mg by mouth once daily. - aspirin, enteric coated (ASPIRIN, ENTERIC COATED) 81 mg EC tablet Take 81 mg by mouth once daily. - multivitamin tablet Take 1 tablet by mouth once daily. - acetaminophen (TYLENOL) 500 mg tablet Take 500 mg by mouth daily at bedtime. Problem List As Of Date 12/25/2024 Noted Resolved Hirsutism [L68.0] Dysmetabolic syndrome X [E88.810] Mixed hyperlipidemia [E78.2] Plantar fasciitis [M72.2] Breast mass in female [N63.0] 04/01/2014 Abnormal mammogram [R92.8] 03/17/2016 03/31/2016 Apocrine cyst [L74.8] 03/31/2016 Essential hypertension [I10] Controlled type 2 diabetes mellitus without com*12/12/2017 Obesity, Class III, BMI 40-49.9 (morbid obesity*12/12/2017 Diabetic eye exam (HCC) [Z01.00, E11.9] 06/08/2018 Polyarthralgia [M25.50] 09/26/2018 Well adult exam [Z00.00] 12/02/2020 Rheumatoid arthritis involving multiple sites (*06/01/2021 Fibromyalgia [M79.7] 06/01/2021 Advance directive discussed with patient [Z71.8*07/06/2022 Bunion, right [M21.611] 06/26/2023 Hemangioma of liver [D18.03] 09/18/2023 Pancreatic cyst [K86.2] 09/18/2023 Encounter Status:Closed by SUE URENA on 12/25/24 Normal [facility] Absolute lymphocyte countOrd ered By: Sabrina Moran on 12-24-2024 Lymphocytes Auto (Unsp spec) [#/Vol] 3.18 10*3/uL 0.83-4.51 [facility] Absolute neutrophil countOrd ered By: Sabrina Moran on 12-24-2024 Neutrophils (Bld) [#/Vol] 8.7 10*3/uL High 2.0-7.7 [facility] Anion gap in Serum or Plasma Ordered By: Sabrina Moran on 12-24-2024 Anion gap [Moles/Vol] 13 mmol/L 5-15 [facility] Automated blood erythrocyte countOrdered By: Sabrina Moran on 12-24-2024 RBC (Bld) [#/Vol] 4.75 10*6/uL Normal 4.2-5.4 [facility] Comment on above: Performed By: #### L 100.0100, L500.4050 #### [facility] [address] [place], [address] Automated blood hematocrit ( percentage)Ordered By: Sabrina Moran on 12-24-2024 Hematocrit (Bld) [Volume fraction] 45.4 % Normal 37-47 [facility] Comment on above: Performed By: #### L 100.0100, L500.4050 #### [facility] [address] [place], [address] Automated lymphocyte count a s percentage of total leukocytesOrdered By: Sabrina Moran on 12-24-2024 Lymphocytes/100 WBC (Bld) 24.2 % Normal - [facility] Comment on above: Performed By: #### L 100.0100, L500.4050 #### [facility] [address] [place], [address] Lymphocytes/100 WBC Auto (Unsp spec) 24.2 % - [facility] BUN/creatinine ratioOrdered By: Sabrina Moran on 12-24-2024 Urea nitrogen/Creatinine [Mass ratio] 17.9 mg/mg 10-20 [facility] Basophil percentageOrdered B y: Sabrina Moran on 12-24-2024 Basophils/100 WBC (Bld) 0.5 % Normal 0-1 [facility] Comment on above: Performed By: #### L 100.0100, L500.4050 #### [facility] [address] [place], [address] Bilirubin, totalOrdered By: Sabrina Moran on 12-24-2024 Bilirubin [Mass/Vol] 0.42 mg/dL 0.00-1.30 [facility] CBC W/Diff, Automatedon 12-14 Absolute Lymph 3.18 X10 3/uL Normal 0.83-4.51 [facility] Comment on above: Performed By: #### L 100.0100, L500.4050 #### [facility] [address] [place], [address] Absolute Neut 8.7 X10 3/uL High 2.0-7.7 [facility] Comment on above: Performed By: #### L 100.0100, L500.4050 #### [facility] [address] [place], [address] IG% 1.600 High 0.0-0.9 [facility] Comment on above: Result Comment: IG% - Immature Granulocytes (promyelocytes, myelocytes and metamyelocytes) > 1% indicates that a LEFT SHIFT is Present. Performed By: #### L 100.0100, L500.4050 #### [facility] [address] [place], [address] Nucleated RBC (Bld) [#/Vol] 0 10*3/uL Normal 0-5 [facility] Comment on above: Performed By: #### L 100.0100, L500.4050 #### [facility] [address] [place], [address] RDW SD 44.9 fl High 35.1-43.9 [facility] Comment on above: Performed By: #### L 100.0100, L500.4050 #### [facility] [address] [place], [address] Carbon dioxide, total [Moles /volume] in Central venous bloodOrdered By: Sabrina Moran on 12-24-2024 CO2 [Moles/Vol] 24.3 mmol/L 21.0-32.0 [facility] Chloride assayOrdered By: Christel Moran on 12-24-2024 Chloride [Moles/Vol] 101 mmol/L 98-108 [facility] Comprehensive Metabolic Prof ilon 12-24-2024 Albumin [Mass/Vol] 4.2 g/dL Normal 3.4-4.8 [facility] Comment on above: Performed By: #### L 100.0100, L500.4050 #### [facility] [address] [place], [address] Albumin/Globulin [Mass ratio] 1.4 {ratio} Normal 0.9-2.4 [facility] Comment on above: Performed By: #### L 100.0100, L500.4050 #### [facility] [address] [place], [address] ALK PHOS 67 U/L Normal 35-104 [facility] Comment on above: Performed By: #### L 100.0100, L500.4050 #### [facility] [address] [place], [address] ALT [Catalytic activity/Vol] 29 U/L Normal <=34 [facility] Comment on above: Performed By: #### L 100.0100, L500.4050 #### [facility] [address] [place], [address] AST [Catalytic activity/Vol] 24 U/L Normal <=31 [facility] Comment on above: Performed By: #### L 100.0100, L500.4050 #### [facility] [address] [place], [address] Bilirubin [Mass/Vol] 0.42 mg/dL Normal 0.00-1.30 [facility] Comment on above: Performed By: #### L 100.0100, L500.4050 #### [facility] [address] [place], [address] BUN/CRE 17.9 RATIO Normal 10-20 [facility] Comment on above: Performed By: #### L 100.0100, L500.4050 #### [facility] [address] [place], [address] Calcium [Mass/Vol] 9.4 mg/dL Normal 7.6-11.0 [facility] Comment on above: Performed By: #### L 100.0100, L500.4050 #### [facility] [address] [place], [address] Chloride [Moles/Vol] 101 mmol/L Normal 98-108 [facility] Comment on above: Performed By: #### L 100.0100, L500.4050 #### [facility] [address] [place], [address] CO2 [Moles/Vol] 24.3 mmol/L Normal 21.0-32.0 [facility] Comment on above: Performed By: #### L 100.0100, L500.4050 #### [facility] [address] [place], [address] Creatinine [Mass/Vol] 0.89 mg/dL Normal 0.70-1.20 [facility] Comment on above: Performed By: #### L 100.0100, L500.4050 #### [facility] [address] [place], [address] GAP 13 Normal 5-15 [facility] Comment on above: Performed By: #### L 100.0100, L500.4050 #### [facility] [address] [place], [address] GFR/1.73 sq M.predicted among non-blacks MDRD (S/P/Bld) [Vol rate/Area] 71 mL/min/{1.73_m2} Normal >60 [facility] Comment on above: Result Comment: mL/m in/1.73m2 CKD-EPI Creatinine Equation (2020) Performed By: #### L 100.0100, L500.4050 #### [facility] [address] [place], [address] Globulin (S) [Mass/Vol] 2.9 g/dL Normal 2.2-4.2 [facility] Comment on above: Performed By: #### L 100.0100, L500.4050 #### [facility] [address] [place], [address] Glucose [Mass/Vol] 86 mg/dL Normal 70-99 [facility] Comment on above: Performed By: #### L 100.0100, L500.4050 #### [facility] [address] [place], [address] Potassium [Moles/Vol] 4.2 mmol/L Normal 3.3-5.1 [facility] Comment on above: Performed By: #### L 100.0100, L500.4050 #### [facility] [address] [place], [address] Sodium [Moles/Vol] 138 mmol/L Normal 133-145 [facility] Comment on above: Performed By: #### L 100.0100, L500.4050 #### [facility] [address] [place], [address] T PROT 7.1 g/dL Normal 5.9-8.4 [facility] Comment on above: Performed By: #### L 100.0100, L500.4050 #### [facility] [address] [place], [address] Urea nitrogen [Mass/Vol] 16 mg/dL Normal 4-19 [facility] Comment on above: Performed By: #### L 100.0100, L500.4050 #### [facility] [address] [place], [address] Eosinophil percentageOrdered By: Sabrina Moran on 12-24-2024 Eosinophils/100 WBC (Bld) 1.3 % Normal 0-5 [facility] Comment on above: Performed By: #### L 100.0100, L500.4050 #### [facility] [address] [place], [address] Erythrocyte distribution wid th ratioOrdered By: Sabrina Moran on 12-24-2024 Erythrocyte distribution width (RBC) [Ratio] 12.9 % Normal 11.6-14.6 [facility] Comment on above: Performed By: #### L 100.0100, L500.4050 #### [facility] [address] [place], [address] Erythrocyte distribution wid th standard deviationOrdered By: Sabrina Moran on 12-24-2024 Erythrocyte distribution width (RBC) [Entitic vol] 44.9 fL High 35.1-43.9 [facility] Erythrocyte distribution width (RBC) [Ratio] 44.9 fl High 35.1-43.9 [facility] GFR/1.73 sq M.predicted ino g non-blacks MDRD (S/P/Bld) [Vol rate/Area]Ordered By: Sabrina Moran on 12-24-2024 Estimated GFR (MDRD) Non-Af Amer 71 >60 [facility] Comment on above: mL/min/1.73m2 CKD-EP I Creatinine Equation (2020) Glomerular filtration rate ( GFR) estimation/1.73 sq m using serum, plasma, or whole bOrdered By: Sabrina Moran on 12-24-2024 GFR/1.73 sq M.predicted among non-blacks MDRD (S/P/Bld) [Vol rate/Area] 71 mL/min/{1.73_m2} >60 [facility] Comment on above: mL/min/1.73m2 CKD-EP I Creatinine Equation (2020) HbA1c (Bld)on 12-24-2024 Average glucose Estimated from glycated hemoglobin (Bld) [Mass/Vol] 111 mg/dL Normal [facility] Comment on above: Order Comment: Rolando bautista Type: BLOOD SPECIMENOrdering Facility: [facility] Address: [address] [place] [address] Result Comment: eAG: (Estimated average glucose) is a calculated value from HgbA1c and is employee's representative of the average blood glucose level in the last 2-3 month period. Performed By: #### 5 5454-3 ####[facility] LABCLIA [id number] [place] [address] [place] HbA1c (Bld) [Mass fraction] 5.5 % Normal 4.3-5.6 [facility] Comment on above: Order Comment: Rolando bautista Type: BLOOD SPECIMENOrdering Facility: [facility] Address: [address] [place] [address] Result Comment: Amer ican Diabetes Association guidelines indicate that patients with HgbA1c in the range 5.7-6.4% are at increased risk for development of diabetes, and intervention by lifestyle modification may be beneficial. HgbA1c greater or equal to 6.5% is considered diagnostic of diabetes. Performed By: #### 5 5454-3 ####[facility] LABCLIA [id number] [address] [place] Hemoglobin measurementOrdere d By: Sabrina Moran on 12-24-2024 Hemoglobin (Bld) [Mass/Vol] 14.7 g/dL Normal 12.0-15.0 [facility] Comment on above: Performed By: #### L 100.0100, L500.4050 #### [facility] [address] [place], [place], [address] Immature granulocytes/100 WB C Auto (Bld)Ordered By: Sabrina Moran on 12-24-2024 Immature granulocytes/100 WBC (Bld) 1.600 % High 0.0-0.9 [facility] Comment on above: IG% - Immature Granu locytes (promyelocytes, myelocytes and metamyelocytes) > 1% indicates that a LEFT SHIFT is Present. LIPID PANEL, NONFASTINGon Cholesterol [Mass/Vol] 127 mg/dL Normal <200 [facility] Comment on above: Order Comment: Speci men Type: BLOOD SPECIMENOrdering Facility: [facility] Address: [address] [place] [address] Result Comment: <200 mg/dL, Desirable 200-239 mg/dL, Borderline high >239 mg/dL, High Performed By: #### L IPNF ####[facility] LABCLIA [id number] [place] [address] [place] HDL CHOLESTEROL, NF 56 mg/dL Normal >39 [facility] Comment on above: Order Comment: Radhai men Type: BLOOD SPECIMENOrdering Facility: [facility] Address: [address] [place] [address] Result Comment: 40-5 9 mg/dL, Acceptable >59 mg/dL, High: Negative risk factor for coronary heart disease <40 mg/dL, Low: Positive risk factor for coronary heart disease Performed By: #### L IPNF ####[facility] LABCLIA [id number] [address] [place] LDL CHOLESTEROL, NF 39 mg/dL Normal <100 [facility] Comment on above: Order Comment: Radhai men Type: BLOOD SPECIMENOrdering Facility: [facility] Address: [address] [place] [address] Result Comment: <100 mg/dL, Optimal 100-129 mg/dL, Near optimal/above optimal 130-159 mg/dL, Borderline high 160-189 mg/dL, High >189 mg/dL, Very high Secondary prevention optimal LDL Cholesterol levels are recommended to be < 70 mg/dL Performed By: #### L IPNF ####[facility] LABIA [id number] [address] [place] LDL/HDL RATIO, NF 0.70 mg/dL Normal <2.54 [facility] Comment on above: Order Comment: Speci men Type: BLOOD SPECIMENOrdering Facility: [facility] Address: [address] [place] [address] Result Comment: Murali terry: 1. National Cholesterol Education Program ATP III Guideline At-A-Glance Quick Desk Reference: National Heart, Lung, and Blood Lamar. National Institutes of Health. 2001: NIH Publication No. 01-3305. 2. An International Atherosclerosis Society position paper: global recommendations for the management of dyslipidemia: executive summary, Atherosclerosis. 2014: 232(2):410-413. Performed By: #### L IPNF ####[facility] LABIA [id number] [place] [address] [place] NON HDL CHOL, NF 71 mg/dL Normal <130 [facility] Comment on above: Order Comment: Rolando bautista Type: BLOOD SPECIMENOrdering Facility: [facility] Address: [address] [place] [address] Result Comment: <130 mg/dL, Optimal 130-159 mg/dL, Near optimal/above optimal 160-189 mg/dL, Borderline high 190-219 mg/dL, High >219 mg/dL, Very high Secondary prevention optimal non HDL Cholesterol levels are recommended to be <100 mg/dL Performed By: #### L IPNF ####[facility] LABIA [id number] [address] [place] [facility] T CHOL/HDL RATIO NF 2.27 mg/dL Normal <5.10 [facility] Comment on above: Order Comment: Rolando bautista Type: BLOOD SPECIMENOrdering Facility: [facility] Address: [address] [place] [address] Performed By: #### L IPNF ####[facility] LABIA [id number] [place] [address] [place] TRIGLYCERIDES, NF 158 mg/dL High <150 [facility] Comment on above: Order Comment: Rolando bautista Type: BLOOD SPECIMENOrdering Facility: [facility] Address: [address] [place] [address] Result Comment: <150 mg/dL, Normal 150-199 mg/dL, Borderline high 200-499 mg/dL, High >499 mg/dL, Very high Performed By: #### L IPNF ####[facility] LABCLIA [id number] [place] [address] [place] VLDL CHOLESTEROL, NF 32 mg/dL High <30 [facility] Comment on above: Order Comment: Speci men Type: BLOOD SPECIMENOrdering Facility: [facility] Address: [address] [place] [address] Performed By: #### L IPNF ####[facility] LABCLIA [id number] [address] [place] Laboratory - Chemistry and C hemistry - challengeOrdered By: Sabrina Moran on 12-24-2024 AST [Catalytic activity/Vol] 24 U/L <32 [facility] Lymphocytes Auto (Unsp spec) [#/Vol]Ordered By: Sabrina Moran on 12-24-2024 Lymphocytes (Bld) [#/Vol] 3.18 10*3/uL 0.83-4.51 [facility] MCV (mean corpuscular volume ) determinationOrdered By: Sabrina Moran on 12-24-2024 MCV (RBC) [Entitic vol] 95.6 fL Normal 81-99 [facility] Comment on above: Performed By: #### L 100.0100, L500.4050 #### [facility] [address] [place], [address] Mean corpuscular hemoglobin (MCH) determinationOrdered By: Sabrina Moran on 12-24-2024 MCH (RBC) [Entitic mass] 30.9 pg Normal 27.0-32.0 [facility] Comment on above: Performed By: #### L 100.0100, L500.4050 #### [facility] [address] [place], [address] Mean corpuscular hemoglobin concentration (MCHC) determinationOrdered By: Sabrina Moran on 12-24-2024 MCHC (RBC) [Mass/Vol] 32.4 g/dL Normal 32-36 [facility] Comment on above: Performed By: #### L 100.0100, L500.4050 #### [facility] [address] [place], [address] Mean platelet volume determi nationOrdered By: Sabrina Moran on 12-24-2024 Platelet mean volume (Bld) [Entitic vol] 9.9 fL Normal 6.2-12.0 [facility] Comment on above: Performed By: #### L 100.0100, L500.4050 #### [facility] [address] [place], [address] Monocyte percentageOrdered B y: Sabrina Moran on 12-24-2024 Monocytes/100 WBC (Bld) 6.2 % Normal 0-10 [facility] Comment on above: Performed By: #### L 100.0100, L500.4050 #### [facility] [address] [place], [address] Neutrophil percentageOrdered By: Sabrina Moran on 12-24-2024 Neutrophils/100 WBC (Bld) 66.2 % Normal 47-70 [facility] Comment on above: Performed By: #### L 100.0100, L500.4050 #### [facility] [address] [place], [address] Nucleated red blood cell per centageOrdered By: Sabrina Moran on 12-24-2024 Nucleated RBC/100 WBC (Bld) [Ratio] 0 % 0-5 [facility] Platelet countOrdered By: Christel Moran on 12-24-2024 Platelets (Bld) [#/Vol] 291 10*3/uL Normal 150-450 [facility] Comment on above: Performed By: #### L 100.0100, L500.4050 #### [facility] [address] [place], [address] Potassium (Unsp spec) [Mass/ Vol]Ordered By: Sabrina Moran on 12-24-2024 Potassium [Moles/Vol] 4.2 mmol/L 3.3-5.1 [facility] Potassium measurement (mass/ volume)Ordered By: Sabrina Moran on 12-24-2024 Potassium (Unsp spec) [Mass/Vol] 4.2 mmol/L 3.3-5.1 [facility] Serum creatinine measurement (mass/volume)Ordered By: Sabrina Moran on 12-24-2024 Creatinine [Mass/Vol] 0.89 mg/dL 0.70-1.20 [facility] Serum globulin measurementOr dered By: Sabrina Moran on 12-24-2024 Globulin (S) [Mass/Vol] 2.9 g/dL 2.2-4.2 [facility] Serum glucose measurement (m ass/volume)Ordered By: Sabrina Moran on 12-24-2024 Glucose [Mass/Vol] 86 mg/dL 70-99 [facility] Serum or plasma alanine callahan otransferase (ALT) measurementOrdered By: Sabrina Moran on 12-24-2024 ALT [Catalytic activity/Vol] 29 U/L <35 [facility] Serum or plasma albumin shadia urement (mass/volume)Ordered By: Sabrina Moran on 12-24-2024 Albumin [Mass/Vol] 4.2 g/dL 3.4-4.8 [facility] Serum or plasma albumin/glob ulin mass ratioOrdered By: Sabrina Moran on 12-24-2024 Albumin/Globulin [Mass ratio] 1.4 {ratio} 0.9-2.4 [facility] Serum or plasma alkaline corie sphatase measurementOrdered By: Sabrina Moran on 12-24-2024 ALP [Catalytic activity/Vol] 67 U/L 35-104 [facility] Serum or plasma calcium shadia urement (mass/volume)Ordered By: Sabrina Moran on 12-24-2024 Calcium [Mass/Vol] 9.4 mg/dL 7.6-11.0 [facility] Serum or plasma urea nitroge n measurement (mass/volume)Ordered By: Sabrina Moran on 12-24-2024 Urea nitrogen [Mass/Vol] 16 mg/dL 4-19 [facility] Sodium levelOrdered By: Katharine Moran on 12-24-2024 Sodium [Moles/Vol] 138 mmol/L 133-145 [facility] Total proteinOrdered By: Delisa Moran on 12-24-2024 Protein [Mass/Vol] 7.1 g/dL 5.9-8.4 [facility] White blood cell (WBC) count Ordered By: Sabrina Moran on 12-24-2024 WBC (Bld) [#/Vol] 13.2 10*3/uL High 4.4-11.0 [facility] Comment on above: Performed By: #### L 100.0100, L500.4050 #### [facility] [address] [place], [address] Absolute neutrophil countOrd ered By: Sabrina Moran on 11-04-2024 Neutrophils (Bld) [#/Vol] 4.4 10*3/uL 2.0-7.7 [facility] Albumin to globulin ratioOrd ered By: Sabrina Moran on 11-04-2024 Albumin/Globulin [Mass ratio] 1.2 {ratio} Normal 0.9-2.4 [facility] Comment on above: Performed By: #### L 100.0100, L500.4050 ####[facility] [address] [place], [address] Automated blood erythrocyte countOrdered By: Sabrina Moran on 11-04-2024 RBC (Bld) [#/Vol] 4.56 10*6/uL Normal 4.2-5.4 [facility] Comment on above: Performed By: #### L 100.0100, L500.4050 ####[facility] [address] [place], [address] Automated blood hematocrit ( percentage)Ordered By: Sabrina Moran on 11-04-2024 Hematocrit (Bld) [Volume fraction] 43.9 % Normal 37-47 [facility] Comment on above: Performed By: #### L 100.0100, L500.4050 ####[facility] [address] [place], [address] Automated lymphocyte count a s percentage of total leukocytesOrdered By: Sabrian Moran on 11-04-2024 Lymphocytes/100 WBC (Bld) 27.1 % Normal 19-41 [facility] Comment on above: Performed By: #### L 100.0100, L500.4050 ####[facility] [address] [place], [address] Basophil percentageOrdered B y: Sabrina Moran on 11-04-2024 Basophils/100 WBC (Bld) 1.0 % Normal 0-1 [facility] Comment on above: Performed By: #### L 100.0100, L500.4050 ####[facility] [address] [place], [address] Bilirubin, totalOrdered By: Sabrina Moran on 11-04-2024 Bilirubin [Mass/Vol] 0.60 mg/dL Normal 0.20-1.00 [facility] Comment on above: For patients on eltr ombopag therapy, use of Dimension [place] TBIL is not recommended. Result Comment: For patients on eltrombopag therapy, use of Dimension [place] TBIL is not recommended. Performed By: #### L 100.0100, L500.4050 ####[facility] [address] [place], [address] Blood urea nitrogen (BUN)/cr eatinine ratioOrdered By: Sabrina Moran on 11-04-2024 Urea nitrogen/Creatinine [Mass ratio] 14.3 mg/mg 08-04 [facility] CBC W/Diff, Automatedon 10-17 Absolute Lymph 2.11 X10 3/uL Normal 0.83-4.51 [facility] Comment on above: Performed By: #### L 100.0100, L500.4050 ####[facility] [address] [place], [address] Absolute Neut 4.4 X10 3/uL Normal 2.0-7.7 [facility] Comment on above: Performed By: #### L 100.0100, L500.4050 ####[facility] [address] [place], [address] IG% 1.200 High 0.0-0.9 [facility] Comment on above: Result Comment: IG% - Immature Granulocytes (promyelocytes, myelocytes and metamyelocytes) > 1% indicates that a LEFT SHIFT is Present. Performed By: #### L 100.0100, L500.4050 ####[facility] [address] [place], [address] Nucleated RBC (Bld) [#/Vol] 0 10*3/uL Normal 0-5 [facility] Comment on above: Performed By: #### L 100.0100, L500.4050 ####[facility] [address] [place], [address] RDW SD 45.1 fl High 35.1-43.9 [facility] Comment on above: Performed By: #### L 100.0100, L500.4050 ####[facility] [address] [place], [address] Carbon dioxide measurementOr dered By: Sabrina Moran on 11-04-2024 CO2 [Moles/Vol] 28.0 mmol/L Normal 21.0-32.0 [facility] Comment on above: Performed By: #### L 100.0100, L500.4050 ####[facility] [address] [place], [address] Chloride measurementOrdered By: Sabrina Moran on 11-04-2024 Chloride [Moles/Vol] 106 mmol/L Normal 98-107 [facility] Comment on above: Performed By: #### L 100.0100, L500.4050 ####[facility] [address] [place], [address] Comprehensive Metabolic Prof acacia 11-04-2024 ALK P 67 U/L Normal 45-117 [facility] Comment on above: Performed By: #### L 100.0100, L500.4050 ####[facility] [address] [place], [address] BUN/CRE 14.3 RATIO Normal 10-20 [facility] Comment on above: Performed By: #### L 100.0100, L500.4050 ####[facility] [address] [place], [address] CA,Total 9.9 mg/dL Normal 8.5-10.1 [facility] Comment on above: Performed By: #### L 100.0100, L500.4050 ####[facility] [address] [place], [address] EST GFR - AA 79 mL/min Normal >60 [facility] Comment on above: Result Comment: Afri can Guatemalan GFR Calc Performed By: #### L 100.0100, L500.4050 ####[facility] [address] [place], [address] GAP 7 Normal 5-15 [facility] Comment on above: Performed By: #### L 100.0100, L500.4050 ####[facility] [address] [place], [address] GFR/1.73 sq M.predicted among non-blacks MDRD (S/P/Bld) [Vol rate/Area] 66 mL/min/{1.73_m2} Normal >60 [facility] Comment on above: Result Comment: Non- GFR Calc Performed By: #### L 100.0100, L500.4050 ####[facility] [address] [place], [address] T PROT 6.9 g/dL Normal 6.4-8.2 [facility] Comment on above: Performed By: #### L 100.0100, L500.4050 ####[facility] [address] [place], [address] Comprehensive Metabolic Prof ilOrdered By: Sabrina Moran on 11-04-2024 AST [Catalytic activity/Vol] 35 U/L Normal 15-37 [facility] Comment on above: Performed By: #### L 100.0100, L500.4050 ####[facility] [address] [place], [address] Eosinophil percentageOrdered By: Sabrina Moran on 11-04-2024 Eosinophils/100 WBC (Bld) 3.3 % Normal 0-5 [facility] Comment on above: Performed By: #### L 100.0100, L500.4050 ####[facility] [address] [place], [address] Erythrocyte distribution wid th ratioOrdered By: Sabrina Moran on 11-04-2024 Erythrocyte distribution width (RBC) [Ratio] 13.0 % Normal 11.6-14.6 [facility] Comment on above: Performed By: #### L 100.0100, L500.4050 ####[facility] [address] [place], [address] Erythrocyte distribution wid th standard deviationOrdered By: Sabrina Moran on 11-04-2024 Erythrocyte distribution width (RBC) [Entitic vol] 45.1 fL High 35.1-43.9 [facility] Estimated glomerular filtrat ion rate (GFR) AmericanOrdered By: Sabrina Moran on 11-04-2024 Estimated GFR (MDRD) Amer 79 mL/min >60 [facility] Comment on above: GFR Calc Glomerular filtration rate ( GFR) estimationOrdered By: Sabrina Moran on 11-04-2024 Estimated GFR (MDRD) Non-Af Amer 66 mL/min >60 [facility] Comment on above: Non- GFR Calc Glucose measurementOrdered B y: Sabrina Moran on 11-04-2024 Glucose [Mass/Vol] 97 mg/dL Normal 74-106 [facility] Comment on above: Performed By: #### L 100.0100, L500.4050 ####[facility] [address] [place], [address] Hemoglobin measurementOrdere d By: Sabrina Moran on 11-04-2024 Hemoglobin (Bld) [Mass/Vol] 14.3 g/dL Normal 12.0-15.0 [facility] Comment on above: Performed By: #### L 100.0100, L500.4050 ####[facility] [address] [place], [address] Immature granulocytes/100 WB C Auto (Bld)Ordered By: Sabrina Moran on 11-04-2024 Immature granulocytes/100 WBC (Bld) 1.200 % High 0.0-0.9 [facility] Comment on above: IG% - Immature Granu locytes (promyelocytes, myelocytes and metamyelocytes) > 1% indicates that a LEFT SHIFT is Present. Lymphocytes Auto (Unsp spec) [#/Vol]Ordered By: Sabrina Moran on 11-04-2024 Lymphocytes (Bld) [#/Vol] 2.11 10*3/uL 0.83-4.51 [facility] MCV (mean corpuscular volume ) determinationOrdered By: Sabrina Moran on 11-04-2024 MCV (RBC) [Entitic vol] 96.3 fL Normal 81-99 [facility] Comment on above: Performed By: #### L 100.0100, L500.4050 ####[facility] [address] [place], [address] Mean corpuscular hemoglobin (MCH) determinationOrdered By: Sabrina Moran on 11-04-2024 MCH (RBC) [Entitic mass] 31.4 pg Normal 27.0-32.0 [facility] Comment on above: Performed By: #### L 100.0100, L500.4050 ####[facility] [address] [place], [address] Mean corpuscular hemoglobin concentration (MCHC) determinationOrdered By: Sabrina Moran on 11-04-2024 MCHC (RBC) [Mass/Vol] 32.6 g/dL Normal 32-36 [facility] Comment on above: Performed By: #### L 100.0100, L500.4050 ####[facility] [address] [place], [address] Mean platelet volume determi nationOrdered By: Sabrina Moran on 11-04-2024 Platelet mean volume (Bld) [Entitic vol] 10.0 fL Normal 6.2-12.0 [facility] Comment on above: Performed By: #### L 100.0100, L500.4050 ####[facility] [address] [place], [address] Monocyte percentageOrdered B y: Sabrina Moran on 11-04-2024 Monocytes/100 WBC (Bld) 10.9 % High 0-10 [facility] Comment on above: Performed By: #### L 100.0100, L500.4050 ####[facility] [address] [place], [address] Neutrophil percentageOrdered By: Sabrina Moran on 11-04-2024 Neutrophils/100 WBC (Bld) 56.5 % Normal 47-70 [facility] Comment on above: Performed By: #### L 100.0100, L500.4050 ####[facility] [address] [place], [address] Nucleated red blood cell per centageOrdered By: Sabrina Moran on 11-04-2024 Nucleated RBC/100 WBC (Bld) [Ratio] 0 % 0-5 [facility] Platelet countOrdered By: Christel Moran on 11-04-2024 Platelets (Bld) [#/Vol] 218 10*3/uL Normal 150-450 [facility] Comment on above: Performed By: #### L 100.0100, L500.4050 ####[facility] [address] [place], [address] Potassium measurementOrdered By: Sabrina Moran on 11-04-2024 Potassium [Moles/Vol] 4.0 mmol/L Normal 3.5-5.1 [facility] Comment on above: Performed By: #### L 100.0100, L500.4050 ####[facility] [address] [place], [address] Serum anion gap measurementO rdered By: Sabrina Moran on 11-04-2024 Anion gap [Moles/Vol] 7 mmol/L 5-15 [facility] Serum globulin measurementOr dered By: Sabrina Moran on 11-04-2024 Globulin (S) [Mass/Vol] 3.1 g/dL Normal 2.2-4.2 [facility] Comment on above: Performed By: #### L 100.0100, L500.4050 ####[facility] [address] [place], [address] Serum or plasma alanine callahan otransferase (ALT) measurementOrdered By: Sabrina Moran on 11-04-2024 ALT [Catalytic activity/Vol] 58 U/L High 13-56 [facility] Comment on above: Performed By: #### L 100.0100, L500.4050 ####[facility] [address] [place], [address] Serum or plasma albumin shadia urement (mass/volume)Ordered By: Sabrina Moran on 11-04-2024 Albumin [Mass/Vol] 3.8 g/dL Normal 3.2-5.0 [facility] Comment on above: Performed By: #### L 100.0100, L500.4050 ####[facility] [address] [place], [address] Serum or plasma alkaline corie sphatase measurementOrdered By: Sabrina Moran on 11-04-2024 ALP [Catalytic activity/Vol] 67 U/L 45-117 [facility] Serum or plasma calcium shadia urement (mass/volume)Ordered By: Sabrina Moran on 11-04-2024 Calcium [Mass/Vol] 9.9 mg/dL 8.5-10.1 [facility] Serum or plasma creatinine m easurement (mass/volume)Ordered By: Sabrina Moran on 11-04-2024 Creatinine [Mass/Vol] 0.91 mg/dL Normal 0.55-1.02 [facility] Comment on above: The validity of the calculated GFR & GFRAA in patients over 70 years has not been determined. Clinical correlation is essential. Result Comment: The validity of the calculated GFR GFRAA in patients over 70 years has not been determined. Clinical correlation is essential. Performed By: #### L 100.0100, L500.4050 ####[facility] [address] [place], [address] Serum or plasma urea nitroge n measurement (mass/volume)Ordered By: Sabrina Moran on 11-04-2024 Urea nitrogen [Mass/Vol] 13 mg/dL Normal 7-18 [facility] Comment on above: Performed By: #### L 100.0100, L500.4050 ####[facility] [address] [place], [address] Sodium levelOrdered By: Katharine Moran on 11-04-2024 Sodium [Moles/Vol] 140 mmol/L Normal 136-145 [facility] Comment on above: Performed By: #### L 100.0100, L500.4050 ####[facility] [address] [place], [address] Total proteinOrdered By: Delisa Moran on 11-04-2024 Protein [Mass/Vol] 6.9 g/dL 6.4-8.2 [facility] White blood cell (WBC) count Ordered By: Sabrina Moran on 11-04-2024 WBC (Bld) [#/Vol] 7.8 10*3/uL Normal 4.4-11.0 [facility] Comment on above: Performed By: #### L 100.0100, L500.4050 ####[facility] [address] [place], [address] [facility] 10-02-2024 [facility] Telephone ([facility]) -- KATE TATUM ([id number]) 1955 F Date Time Provider Department 10/02/24 LAURENT PAGAN [facility] During your visit today, we recorded the following information about you: Laurent Pagan MD 10/02/2024 2:40 PM Signed Let patient know the cyst in the pancrease is stable. Will repeat MRI again in a year. Lokesh Espitia MA 10/02/2024 3:03 PM Signed Left message for patient to contact office. CRUZ Thomas Laurie Lynn, LPN 10/02/2024 3:54 PM Signed Spoke with pt and information listed below given. Pt verbalizes understanding. Naveen Hope LPN Allergies As of Date: 10/02/2024 Noted Allergy Reaction DOLOBID (DIFLUNISAL) 08/25/2005 2 - Rash Date Reviewed: 06/26/2024 Reviewed by: Laurent Pagan MD - Fully Assessed Reason for Visit: Results [95] Primary Visit Diagnosis:Pancreatic cyst [K86.2] Prescriptions as of 10/02/2024 - spironolactone (ALDACTONE) 25 mg tablet Take 0.5 tablets by mouth once daily. - lisinopril (PRINIVIL) 10 mg tablet Take 1 tablet by mouth once daily. - atorvastatin (LIPITOR) 10 mg tablet Take 1 tablet by mouth once daily. - mometasone (NASONEX) 50 mcg/actuation nasal spray Use 2 Sprays in the nose once daily. Rinse mouth after use. - MAGNESIUM ORAL Take by mouth as directed. - BIOTIN ORAL Take by mouth. - etanercept (ENBREL) 25 mg (1 mL) injection Inject 0.4 mg/kg/dose subcutaneously one time only. weekly - predniSONE (DELTASONE) 2.5 mg tablet Take 1 tablet by mouth once daily. Take ten tabs by mouth on day one and reduce by one a day till done. - folic acid 1 mg tablet Take 1 mg by mouth once daily. Take 2 tablets daily - DULoxetine (CYMBALTA) 30 mg capsule Take 30 mg by mouth once daily. - METHOTREXATE ORAL Take 5 mg by mouth. Take 1 tablet weekly - calcium citrate-vitamin D3 (CALCIUM CITRATE + D) 315-200 mg-unit tab Take 1 tablet by mouth twice daily with meals. - ascorbic acid, vitamin C, (VITAMIN C) 500 mg tablet Take 500 mg by mouth once daily. - aspirin, enteric coated (ASPIRIN, ENTERIC COATED) 81 mg EC tablet Take 81 mg by mouth once daily. - multivitamin tablet Take 1 tablet by mouth once daily. - acetaminophen (TYLENOL) 500 mg tablet Take 500 mg by mouth daily at bedtime. Problem List As Of Date 10/02/2024 Noted Resolved Hirsutism [L68.0] Dysmetabolic syndrome X [E88.810] Mixed hyperlipidemia [E78.2] Plantar fasciitis [M72.2] Breast mass in female [N63.0] 04/01/2014 Abnormal mammogram [R92.8] 03/17/2016 03/31/2016 Apocrine cyst [L74.8] 03/31/2016 Essential hypertension [I10] Controlled type 2 diabetes mellitus without com*12/12/2017 Obesity, Class III, BMI 40-49.9 (morbid obesity*12/12/2017 Diabetic eye exam (HCC) [Z01.00, E11.9] 06/08/2018 Polyarthralgia [M25.50] 09/26/2018 Well adult exam [Z00.00] 12/02/2020 Rheumatoid arthritis involving multiple sites (*06/01/2021 Fibromyalgia [M79.7] 06/01/2021 Advance directive discussed with patient [Z71.8*07/06/2022 Bunion, right [M21.611] 06/26/2023 Hemangioma of liver [D18.03] 09/18/2023 Pancreatic cyst [K86.2] 09/18/2023 Encounter Status:Closed by NAVEEN HOPE on 10/02/24 Normal [facility] MRI 3D POST PROCESSINGon MRI 3D POST PROCESSING * * *Final Report * * * DATE OF EXAM: Sep 27 2024 1:50PM [facility] 0280 - MRI 3D POST PROCESSING / PROCEDURE REASON: Pancreatic cyst * * * * Physician Interpretation * * * * MRI ABDOMEN WITHOUT AND WITH IV CONTRAST , 3D REFORMATTED IMAGES CLINICAL HISTORY: Pancreatic cystic lesion TECHNIQUE: Magnet: 1.5T scanner. Multiplanar MRI of the abdomen with multiple sequences, including both pre- and post-contrast imaging. Additional MR cholangiopancreatography sequences were performed. Image post-processing {Maximum intensity Projection (MIP)} images were created at an off-line workstation by the interpreting physician or with concurrent physician supervision, with images created, reviewed and archived. Contrast: Intravenous: 10 ml of Elucirem COMPARISON: MRI 09/18/2023 RESULT: Liver: Normal morphology. Diffuse hepatic steatosis. A few scattered T2 hyperintense lesions with early peripheral and progressive enhancement, compatible with hemangiomas. They are unchanged from prior. The largest one in segment 7 measures 2.7 cm (4:19). No suspicious hepatic lesions. Biliary: No intrahepatic or extrahepatic bile duct dilation. No biliary filling defect. Gallbladder is normal. Spleen: No mass. No splenomegaly. Pancreas: No duct dilation. Again seen are few scattered subcentimeter cystic lesions in the pancreatic body and tail, the largest one in the body measuring 0.9 cm (9:7). They are unchanged from prior. No suspicious features. Adrenals: No mass. Kidneys: Benign cysts. No solid mass. No hydronephrosis. GI: No dilated bowel or wall thickening along imaged segments. Small hiatal hernia. Lymph nodes: No abdominal lymphadenopathy. Mesentery / Peritoneum / Retroperitoneum: No ascites or mass. Vasculature: The celiac axis and SMA are patent. The portal vein and branches, splenic vein, SMV, and hepatic veins are patent. No aortic or iliac artery aneurysm. Bones/Soft Tissues: No suspicious lesion. Lower chest: Unremarkable. IMPRESSION: 1. 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 No pancreatic ductal dilation. 2. Stable hepatic hemangiomas. No suspicious hepatic lesions. [place]: [facility] Transcribe Date/Time: Oct 02 2024 10:02A Dictated by : DUSTIN RASMUSSEN MD This examination was interpreted and the report reviewed and electronically signed by: DUSTIN RASMUSSEN MD on Oct 02 2024 10:15AM EST [id number] Normal [facility] MRI PANC/OTONIEL WO/W IVCONon MRI PANC/OTONIEL WO/W IVCON * * *Final Report* * * DATE OF EXAM: Sep 27 2024 1:50PM [facility] 0730 - MRI PANC/OTONIEL WO/W IVCON / PROCEDURE REASON: Pancreatic cyst * * * * Physician Interpretation * * * * MRI ABDOMEN WITHOUT AND WITH IV CONTRAST , 3D REFORMATTED IMAGES CLINICAL HISTORY: Pancreatic cystic lesion TECHNIQUE: Magnet: 1.5T scanner. Multiplanar MRI of the abdomen with multiple sequences, including both pre- and post-contrast imaging. Additional MR cholangiopancreatography sequences were performed. Image post-processing {Maximum intensity Projection (MIP)} images were created at an off-line workstation by the interpreting physician or with concurrent physician supervision, with images created, reviewed and archived. Contrast: Intravenous: 10 ml of Elucirem COMPARISON: MRI 09/18/2023 RESULT: Liver: Normal morphology. Diffuse hepatic steatosis. A few scattered T2 hyperintense lesions with early peripheral and progressive enhancement, compatible with hemangiomas. They are unchanged from prior. The largest one in segment 7 measures 2.7 cm (4:19). No suspicious hepatic lesions. Biliary: No intrahepatic or extrahepatic bile duct dilation. No biliary filling defect. Gallbladder is normal. Spleen: No mass. No splenomegaly. Pancreas: No duct dilation. Again seen are few scattered subcentimeter cystic lesions in the pancreatic body and tail, the largest one in the body measuring 0.9 cm (9:7). They are unchanged from prior. No suspicious features. Adrenals: No mass. Kidneys: Benign cysts. No solid mass. No hydronephrosis. GI: No dilated bowel or wall thickening along imaged segments. Small hiatal hernia. Lymph nodes: No abdominal lymphadenopathy. Mesentery / Peritoneum / Retroperitoneum: No ascites or mass. Vasculature: The celiac axis and SMA are patent. The portal vein and branches, splenic vein, SMV, and hepatic veins are patent. No aortic or iliac artery aneurysm. Bones/Soft Tissues: No suspicious lesion. Lower chest: Unremarkable. IMPRESSION: 1. 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 No pancreatic ductal dilation. 2. Stable hepatic hemangiomas. No suspicious hepatic lesions. [place]: [facility] Transcribe Date/Time: Oct 02 2024 10:02A Dictated by : DUSTIN RASMUSSEN MD This examination was interpreted and the report reviewed and electronically signed by: DUSTIN RASMUSSEN MD on Oct 02 2024 10:15AM EST [id number] Normal [facility] XR Chest PA and Lateralon IMPRESSION: No acute radiographic abnormality. [place]: [facility] Transcribe Date/Time: May 07 2024 10:21A Dictated by : MICHELL GHOTRA MD This examination was interpreted and the report reviewed and electronically signed by: MICHELL GHOTRA MD on May 07 2024 10:22AM EST DIVISION OF RADIOLOGY * * *Final Report* * * DATE OF EXAM: May 07 2024 10:13AM [facility]OX 5291 - XR CHEST 2V FRONTAL/LAT / PROCEDURE REASON: Acute cough * * * * Physician Interpretation * * * * EXAMINATION: CHEST RADIOGRAPH (2 VIEW FRONTAL & LATERAL) CLINICAL HISTORY: Acute cough MQ: XC2_6 EXAM DATE/TIME: 05/07/2024 10:13 AM COMPARISON: No relevant prior studies available. RESULT: Lines, tubes, and devices: None. Lungs and pleura: No consolidation. No lung mass. No pleural effusion. No pneumothorax. Cardiomediastinal silhouette: Normal cardiomediastinal silhouette. Bones and soft tissues: Unremarkable. DIVISION OF RADIOLOGY Provider, [facility] - 05/07/2024 * * *Final Report* * * DATE OF EXAM: May 07 2024 10:13AM WOX [id number] - XR CHEST 2V FRONTAL/LAT / PROCEDURE REASON: Acute cough * * * * Physician Interpretation * * * * EXAMINATION: CHEST RADIOGRAPH (2 VIEW FRONTAL & LATERAL) CLINICAL HISTORY: Acute cough MQ: XC2_6 EXAM DATE/TIME: 05/07/2024 10:13 AM COMPARISON: No relevant prior studies available. RESULT: Lines, tubes, and devices: None. Lungs and pleura: No consolidation. No lung mass. No pleural effusion. No pneumothorax. Cardiomediastinal silhouette: Normal cardiomediastinal silhouette. Bones and soft tissues: Unremarkable. IMPRESSION IMPRESSION: No acute radiographic abnormality. [place]: [facility] Transcribe Date/Time: May 07 2024 10:21A Dictated by : MICHELL GHOTRA MD This examination was interpreted and the report reviewed and electronically signed by: MICHELL GHOTRA MD on May 07 2024 10:22AM EST [facility] Radiology Study observation (narrative) [facility] XR Chest PA and LateralOrder ed By: [facility] Provider on 05-07-2024 [facility] DBT Breast - right diagnosti c for implanton 02-07-2024 IMPRESSION: BENIGN F INDING There is no mammographic evidence of malignancy. Return to annual mammogram screening schedule is recommended. Tobi quinn/ben:02/07/2024 13:41:25 Coating Operator(s): RT Landen(R)(M), [facility] Mammogram BI-RADS: 2 Benign finding Multiple national specialty organizations have released breast cancer screening guidelines for women at average risk for developing breast cancer - guidelines that are based on both evidence and opinion, yet differ on when to start and how often to screen for breast cancer. With representation from Breast Imaging, Internal Medicine, Women's Health, Family Medicine, and Medical/Surgical Oncology, the [facility] has carefully reviewed the data and reached the following consensus: 1) All women should engage in shared decision-making with their providers to decide when to start and how often to screen; 2) All women should have the opportunity to start screening mammography at age 40; 3) For women ages 45-55, we recommend annual screening mammograms; 4) For women ages 55 and over, we support both the transition from an annual to a biennial interval if this aligns more with patient's values and preferences, or continuation with annual screening; 5) All women should discuss with their providers when to stop screening mammograms. [place]: [facility] Transcribe Date/Time: Feb 07 2024 1:17P Dictated by: TOBI CARD MD This examination was interpreted and the report reviewed and electronically signed by: TOBI CARD MD on Feb 07 2024 1:41PM [facility] DIVISION OF RADIOLOGY * * *Final Report* * * DATE OF EXAM: Feb 07 2024 1:17PM [facility] 0629 - BUDDY DIAG W CHASE RT / PROCEDURE REASON: Abnormal mammogram * * * * Physician Interpretation * * * * RESULT: #[id number] - BUDDY DIAG W CHASE RT UNILATERAL RIGHT DIGITAL DIAGNOSTIC MAMMOGRAM TOMOSYNTHESIS WITH CAD: 02/07/2024 HISTORY: Abnormal Mammogram / Call back/abnormal mamm: Right /priors available for comparison. RESULT: TECHNIQUE: The study was acquired using full field digital technology and interpreted from soft copy. Digital Breast Tomosynthesis (DBT) images were obtained and used to assist in the interpretation of this examination. Current study was also evaluated with a Computer Aided Detection (CAD). Comparison is made to exams dated: 01/23/2024 mammogram, 10/22/2021 mammogram, and 10/21/2020 mammogram - [facility]. The right breast is almost entirely fatty. Prior asymmetry is no longer seen in the right breast. There is a stable benign oil cyst in the right breast. There also is a biopsy clip in the right breast. No significant masses, calcifications, or other findings are seen in the breast. DIVISION OF RADIOLOGY Provider, [facility] - 02/07/2024 * * *Final Report* * * DATE OF EXAM: Feb 07 2024 1:17PM [facility] 0629 - BUDDY DIAG W CHASE RT / PROCEDURE REASON: Abnormal mammogram * * * * Physician Interpretation * * * * RESULT: #[id number] - BUDDY DIAG W CHASE RT UNILATERAL RIGHT DIGITAL DIAGNOSTIC MAMMOGRAM TOMOSYNTHESIS WITH CAD: 02/07/2024 HISTORY: Abnormal Mammogram / Call back/abnormal mamm: Right /priors available for comparison. RESULT: TECHNIQUE: The study was acquired using full field digital technology and interpreted from soft copy. Digital Breast Tomosynthesis (DBT) images were obtained and used to assist in the interpretation of this examination. Current study was also evaluated with a Computer Aided Detection (CAD). Comparison is made to exams dated: 01/23/2024 mammogram, 10/22/2021 mammogram, and 10/21/2020 mammogram - [facility]. The right breast is almost entirely fatty. Prior asymmetry is no longer seen in the right breast. There is a stable benign oil cyst in the right breast. There also is a biopsy clip in the right breast. No significant masses, calcifications, or other findings are seen in the breast. IMPRESSION IMPRESSION: BENIGN FINDING There is no mammographic evidence of malignancy. Return to annual mammogram screening schedule is recommended. Tobi quinn/ben:02/07/2024 13:41:25 Coating Operator(s): RT Landen(R)(M), [facility] Mammogram BI-RADS: 2 Benign finding Multiple national specialty organizations have released breast cancer screening guidelines for women at average risk for developing breast cancer - guidelines that are based on both evidence and opinion, yet differ on when to start and how often to screen for breast cancer. With representation from Breast Imaging, Internal Medicine, Women's Health, Family Medicine, and Medical/Surgical Oncology, the [facility] has carefully reviewed the data and reached the following consensus: 1) All women should engage in shared decision-making with their providers to decide when to start and how often to screen; 2) All women should have the opportunity to start screening mammography at age 40; 3) For women ages 45-55, we recommend annual screening mammograms; 4) For women ages 55 and over, we support both the transition from an annual to a biennial interval if this aligns more with patient's values and preferences, or continuation with annual screening; 5) All women should discuss with their providers when to stop screening mammograms. [place]: Ben Transcribe Date/Time: Feb 07 2024 1:17P Dictated by: TOBI CARD MD This examination was interpreted and the report reviewed and electronically signed by: TOBI CARD MD on Feb 07 2024 1:41PM [facility] Radiology Study observation (narrative) [facility] DBT Breast - right diagnosti c for implantOrdered By: [facility] Provider on 02-07-2024 [facility] MG Breast Screeningon 2023 [facility] Absolute lymphocyte countOrd ered By: Sabrina Moran on 01-12-2024 Lymphocytes Auto (Unsp spec) [#/Vol] 3.08 10*3/uL 0.83-4.51 [facility] Automated lymphocyte count a s percentage of total leukocytesOrdered By: Sabrina Moran on 01-12-2024 Lymphocytes/100 WBC Auto (Unsp spec) 26.8 % 19-41 [facility] Basophil percentageOrdered B y: Sabrina Moran on 01-12-2024 Basophils/100 WBC (Bld) 0.7 % 0-1 [facility] Bilirubin [Mass/Vol] 0.40 mg/dL 0.20-1.00 [facility] Comment on above: For patients on eltr ombopag therapy, use of Dimension [place] TBIL is not recommended. Chloride [Moles/Vol] 108 mmol/L 98-107 [facility] Eosinophils/100 WBC (Bld) 1.0 % 0-5 [facility] Glucose [Mass/Vol] 82 mg/dL 74-106 [facility] Hemoglobin (Bld) [Mass/Vol] 14.3 g/dL 12.0-15.0 [facility] Monocytes/100 WBC (Bld) 9.0 % 0-10 [facility] Neutrophils (Bld) [#/Vol] 7.0 10*3/uL 2.0-7.7 [facility] Neutrophils/100 WBC (Bld) 60.8 % 47-70 [facility] Potassium [Moles/Vol] 3.9 mmol/L 3.5-5.1 [facility] Protein [Mass/Vol] 6.9 g/dL 6.4-8.2 [facility] Sodium [Moles/Vol] 141 mmol/L 136-145 [facility] WBC (Bld) [#/Vol] 11.5 10*3/uL 4.4-11.0 [facility] Determination of erythrocyte mean corpuscular volume (MCV)Ordered By: Sabrina Moran on 01-12-2024 MCV (RBC) [Entitic vol] 95.9 fL 81-99 [facility] Erythrocyte distribution wid th ratioOrdered By: [facility] on 01-12-2024 Erythrocyte distribution width (RBC) [Ratio] 13.0 % 11.6-14.6 [facility] Erythrocyte distribution wid th standard deviationOrdered By: [facility]24 Erythrocyte distribution width (RBC) [Entitic vol] 45.3 fL 35.1-43.9 [facility] Hematocrit Auto (Bld) [Volum e fraction]Ordered By: [facility] Dean on 01-12-2024 Hematocrit (Bld) [Volume fraction] 44.5 % 37-47 [facility] Immature granulocytes/100 WB C Auto (Bld)Or[facility] By: [facility] 01-12-2024 Immature granulocytes/100 WBC (Bld) 1.700 % 0.0-0.9 [facility] Comment on above: IG% - Immature Granu locytes (promyelocytes, myelocytes and metamyelocytes) > 1% indicates that a LEFT SHIFT is Present. Laboratory - Chemistry and C hemistry - challengeOrdered By: [facility] Dean on 01-12-2024 Albumin/Globulin [Mass ratio] 1.0 {ratio} 0.9-2.4 [facility] ALP [Catalytic activity/Vol] 61 U/L 45-117 [facility] ALT [Catalytic activity/Vol] 46 U/L 13-56 [facility] CO2 [Moles/Vol] 28.0 mmol/L 21.0-32.0 [facility] Globulin (S) [Mass/Vol] 3.4 g/dL 2.2-4.2 [facility] Urea nitrogen/Creatinine [Mass ratio] 29.5 mg/mg 10-20 [facility] Laboratory - Hematology and Cell countsOrdered By: Sabrinacruz Moran on 01-12-2024 MCH (RBC) [Entitic mass] 30.8 pg 27.0-32.0 [facility] MCHC (RBC) [Mass/Vol] 32.1 g/dL 32-36 [facility] Nucleated RBC/100 WBC (Bld) [Ratio] 0 % 0-5 [facility] Platelet mean volume (Bld) [Entitic vol] 9.7 fL 6.2-12.0 [facility] Platelets (Bld) [#/Vol] 266 10*3/uL 150-450 [facility] No Panel InformationOrdered By: Sabrina Moran on 01-12-2024 Estimated GFR (MDRD) Amer 82 mL/min >60 [facility] Comment on above: GFR Calc Estimated GFR (MDRD) Non-Af Amer 68 mL/min >60 [facility] Comment on above: Non- GFR Calc RBC Auto (Bld) [#/Vol]Ordere d By: Sabrina Moran on 01-12-2024 RBC (Bld) [#/Vol] 4.64 10*6/uL 4.2-5.4 [facility] Serum or plasma calcium shadia urement (mass/volume)Ordered By: Sabrina Moran on 01-12-2024 Calcium [Mass/Vol] 9.0 mg/dL 8.5-10.1 [facility] Serum or plasma creatinine m easurement (mass/volume)Ordered By: Sabrina Moran on 01-12-2024 Creatinine [Mass/Vol] 0.88 mg/dL 0.55-1.02 [facility] Comment on above: The validity of the calculated GFR & GFRAA in patients over 70 years has not been determined. Clinical correlation is essential. Serum or plasma urea nitroge n measurement (mass/volume)Ordered By: Sabrina Moran on 01-12-2024 Urea nitrogen [Mass/Vol] 26 mg/dL 7-18 [facility] Thin prep Papanicolaou smear with manual screeningOrdered By: Sabrina Moran on 01-12-2024 Thin prep Papanicolaou smear with manual screening 3.5 g/dL 3.2-5.0 [facility] Thin prep Papanicolaou smear with manual screening 25 U/L 15-37 [facility] Thin prep Papanicolaou smear with manual screening 5 5-15 [facility] HbA1c (Bld)on 12-27-2023 Average glucose Estimated from glycated hemoglobin (Bld) [Mass/Vol] 114 mg/dL [facility] HbA1c (Bld) [Mass fraction] 5.6 % 4.3 - 5.6 % [facility] Absolute lymphocyte countOrd ered By: Sabrina Moran on 10-17-2023 Lymphocytes Auto (Unsp spec) [#/Vol] 2.03 10*3/uL 0.83-4.51 [facility] Basophil percentageOrdered B y: Sabrina Moran on 10-17-2023 Basophils/100 WBC (Bld) 1.3 % 0-1 [facility] Bilirubin [Mass/Vol] 0.50 mg/dL 0.20-1.00 [facility] Comment on above: For patients on eltr ombopag therapy, use of Dimension [place] TBIL is not recommended. Chloride [Moles/Vol] 106 mmol/L 98-107 [facility] Eosinophils/100 WBC (Bld) 3.3 % 0-5 [facility] Glucose [Mass/Vol] 109 mg/dL 74-106 [facility] Comment on above: Fasting Glucose resu lt from 100 to 125 mg/dL suggests IMPAIRED HOMEOSTASIS per A.D.A. criteria. Neutrophils (Bld) [#/Vol] 3.6 10*3/uL 2.0-7.7 [facility] Neutrophils/100 WBC (Bld) 54.0 % 47-70 [facility] Potassium [Moles/Vol] 4.3 mmol/L 3.5-5.1 [facility] Protein [Mass/Vol] 6.8 g/dL 6.4-8.2 [facility] Sodium [Moles/Vol] 140 mmol/L 136-145 [facility] WBC (Bld) [#/Vol] 6.7 10*3/uL 4.4-11.0 [facility] Blood erythrocytes count (nu mber/volume)Ordered By: Sabrina Moran on 10-17-2023 RBC (Bld) [#/Vol] 4.71 10*6/uL 4.2-5.4 [facility] Blood hemoglobin measurement (mass/volume)Ordered By: Sabrina Moran on 10-17-2023 Hemoglobin (Bld) [Mass/Vol] 14.4 g/dL 12.0-15.0 [facility] Blood lymphocytes/100 leukoc ytesOrdered By: Sabrina Moran on 10-17-2023 Lymphocytes/100 WBC (Bld) 30.4 % 19-41 [facility] Blood monocytes/100 leukocyt esOrdered By: Sabrina Moran on 10-17-2023 Monocytes/100 WBC (Bld) 10.3 % 0-10 [facility] Blood platelet mean volumeOr dered By: Sabrina Moran on 10-17-2023 Platelet mean volume (Bld) [Entitic vol] 10.4 fL 6.2-12.0 [facility] Determination of erythrocyte mean corpuscular volume (MCV)Ordered By: Sabrinacruz Moran on 10-17-2023 MCV (RBC) [Entitic vol] 96.8 fL 81-99 [facility] Hematocrit Auto (Bld) [Volum e fraction]Ordered By: Sabrinacruz Moran on 10-17-2023 Hematocrit (Bld) [Volume fraction] 45.6 % 37-47 [facility] Laboratory - Chemistry and C hemistry - challengeOrdered By: Sabrina Moran on 10-17-2023 ALP [Catalytic activity/Vol] 63 U/L 45-117 [facility] ALT [Catalytic activity/Vol] 52 U/L 13-56 [facility] CO2 [Moles/Vol] 27.0 mmol/L 21.0-32.0 [facility] Globulin (S) [Mass/Vol] 3.2 g/dL 2.2-4.2 [facility] Urea nitrogen/Creatinine [Mass ratio] 20.8 mg/mg 10-20 [facility] Laboratory - Hematology and Cell countsOrdered By: Sabrinacruz Moran on 10-17-2023 Erythrocyte distribution width (RBC) [Entitic vol] 47.0 fL 35.1-43.9 [facility] Erythrocyte distribution width (RBC) [Ratio] 13.4 % 11.6-14.6 [facility] Immature granulocytes/100 WBC (Bld) 0.700 % 0.0-0.9 [facility] Comment on above: IG% - Immature Granu locytes (promyelocytes, myelocytes and metamyelocytes) > 1% indicates that a LEFT SHIFT is Present. MCH (RBC) [Entitic mass] 30.6 pg 27.0-32.0 [facility] Nucleated RBC/100 WBC (Bld) [Ratio] 0 % 0-5 [facility] MCHC Auto (RBC) [Mass/Vol]Or dered By: Sabrina Moran on 10-17-2023 MCHC (RBC) [Mass/Vol] 31.6 g/dL 32-36 [facility] No Panel InformationOrdered By: Sabrina Moran on 10-17-2023 Estimated GFR (MDRD) Amer 79 mL/min >60 [facility] Comment on above: GFR Calc Estimated GFR (MDRD) Non-Af Amer 65 mL/min >60 [facility] Comment on above: Non- GFR Calc Platelets bldOrdered By: Delisa Moran on 10-17-2023 Platelets (Bld) [#/Vol] 242 10*3/uL 150-450 [facility] Serum or plasma albumin shadia urement (mass/volume)Ordered By: Sabrina Moran on 10-17-2023 Albumin [Mass/Vol] 3.6 g/dL 3.2-5.0 [facility] Serum or plasma albumin/glob ulin mass ratioOrdered By: Sabrina Moran on 10-17-2023 Albumin/Globulin [Mass ratio] 1.1 {ratio} 0.9-2.4 [facility] Serum or plasma calcium shadia urement (mass/volume)Ordered By: Sabrina Moran on 10-17-2023 Calcium [Mass/Vol] 8.7 mg/dL 8.5-10.1 [facility] Serum or plasma creatinine m easurement (mass/volume)Ordered By: Sabrina Moran on 10-17-2023 Creatinine [Mass/Vol] 0.91 mg/dL 0.55-1.02 [facility] Comment on above: The validity of the calculated GFR & GFRAA in patients over 70 years has not been determined. Clinical correlation is essential. Serum or plasma urea nitroge n measurement (mass/volume)Ordered By: Sabrina Moran on 10-17-2023 Urea nitrogen [Mass/Vol] 19 mg/dL 7-18 [facility] Thin prep Papanicolaou smear with manual screeningOrdered By: Sabrina Moran on 10-17-2023 Thin prep Papanicolaou smear with manual screening 28 U/L 15-37 [facility] Thin prep Papanicolaou smear with manual screening 7 5-15 [facility] MRI LIVER WO/W IVCONon 09-18 [facility] Absolute lymphocyte countOrd ered By: John Jack on 07-31-2023 Lymphocytes Auto (Unsp spec) [#/Vol] 2.38 10*3/uL 0.83-4.51 [facility] Basophil percentageOrdered B y: John Jack on 07-31-2023 Basophil percentage 0-5 SEEN /hpf 0-5 [facility] Basophils/100 WBC (Bld) 0.6 % 0-1 [facility] Bilirubin [Mass/Vol] 1.00 mg/dL 0.20-1.00 [facility] Comment on above: For patients on eltr ombopag therapy, use of Dimension [place] TBIL is not recommended. Chloride [Moles/Vol] 101 mmol/L 98-107 [facility] Eosinophils/100 WBC (Bld) 1.7 % 0-5 [facility] Glucose [Mass/Vol] 102 mg/dL 74-106 [facility] Comment on above: Fasting Glucose resu lt from 100 to 125 mg/dL suggests IMPAIRED HOMEOSTASIS per A.D.A. criteria. Neutrophils (Bld) [#/Vol] 11.1 10*3/uL 2.0-7.7 [facility] Neutrophils/100 WBC (Bld) 71.6 % 47-70 [facility] Potassium [Moles/Vol] 4.5 mmol/L 3.5-5.1 [facility] Comment on above: Moderate Hemolysis, Result may be falsely increased. Protein [Mass/Vol] 7.3 g/dL 6.4-8.2 [facility] Sodium [Moles/Vol] 135 mmol/L 136-145 [facility] WBC (Bld) [#/Vol] 15.5 10*3/uL 4.4-11.0 [facility] Bilirubin Test strip Ql (U)O rdered By: John Jack on 07-31-2023 Bilirubin Ql (U) Negative Negative [facility] Blood erythrocytes count (nu mber/volume)Ordered By: John Jack on 07-31-2023 RBC (Bld) [#/Vol] 4.55 10*6/uL 4.2-5.4 [facility] Blood hemoglobin measurement (mass/volume)Ordered By: John Jack on 07-31-2023 Hemoglobin (Bld) [Mass/Vol] 14.0 g/dL 12.0-15.0 [facility] Blood lymphocytes/100 leukoc ytesOrdered By: John Jack on 07-31-2023 Lymphocytes/100 WBC (Bld) 15.3 % 19-41 [facility] Blood monocytes/100 leukocyt esOrdered By: John Jack on 07-31-2023 Monocytes/100 WBC (Bld) 9.6 % 0-10 [facility] Blood platelet mean volumeOr dered By: John Jack on 07-31-2023 Platelet mean volume (Bld) [Entitic vol] 10.1 fL 6.2-12.0 [facility] Determination of erythrocyte mean corpuscular volume (MCV)Ordered By: John Jack on 07-31-2023 MCV (RBC) [Entitic vol] 95.4 fL 81-99 [facility] Hematocrit Auto (Bld) [Volum e fraction]Ordered By: John Jack on 07-31-2023 Hematocrit (Bld) [Volume fraction] 43.4 % 37-47 [facility] Ketones Test strip Ql (U)Ord ered By: John Jack on 07-31-2023 Ketones Ql (U) Negative Negative [facility] Laboratory - Chemistry and C hemistry - challengeOrdered By: John Jack on 07-31-2023 ALP [Catalytic activity/Vol] 64 U/L 45-117 [facility] ALT [Catalytic activity/Vol] 35 U/L 13-56 [facility] CO2 [Moles/Vol] 26.0 mmol/L 21.0-32.0 [facility] Globulin (S) [Mass/Vol] 3.8 g/dL 2.2-4.2 [facility] Lipase [Catalytic activity/Vol] 28 U/L 13-75 [facility] Comment on above: Please note:LIPASE r evised reference range effective 23. New Lipase methodology. Expected to produce lower values than the previous assay method. NEW Reference Range: 13 - 75 U/L Urea nitrogen/Creatinine [Mass ratio] 15.2 mg/mg 10-20 [facility] Laboratory - Hematology and Cell countsOrdered By: John Jack on 07-31-2023 Erythrocyte distribution width (RBC) [Entitic vol] 45.7 fL 35.1-43.9 [facility] Erythrocyte distribution width (RBC) [Ratio] 13.2 % 11.6-14.6 [facility] Immature granulocytes/100 WBC (Bld) 1.200 % 0.0-0.9 [facility] Comment on above: IG% - Immature Granu locytes (promyelocytes, myelocytes and metamyelocytes) > 1% indicates that a LEFT SHIFT is Present. MCH (RBC) [Entitic mass] 30.8 pg 27.0-32.0 [facility] Nucleated RBC/100 WBC (Bld) [Ratio] 0 % 0-5 [facility] MCHC Auto (RBC) [Mass/Vol]Or dered By: John Jack on 07-31-2023 MCHC (RBC) [Mass/Vol] 32.3 g/dL 32-36 [facility] Mucus LM Ql (Urine sed)Order ed By: John Jack on 07-31-2023 Mucus Ql (Urine sed) 0 SEEN /hpf [facility] Nitrite Test strip Ql (U)Ord ered By: John Jack on 07-31-2023 Nitrite Ql (U) Negative Negative [facility] No Panel InformationOrdered By: John Jack on 07-31-2023 Estimated Creatinine Clearance Calc 47.57 ml/min [facility] Estimated GFR (MDRD) Amer 78 mL/min >60 [facility] Comment on above: GFR Calc Estimated GFR (MDRD) Non-Af Amer 65 mL/min >60 [facility] Comment on above: Non- GFR Calc Platelets bldOrdered By: Sidney Jack on 07-31-2023 Platelets (Bld) [#/Vol] 272 10*3/uL 150-450 [facility] Protein Test strip Ql (U)Ord ered By: John Jack on 07-31-2023 Protein Ql (U) 15 mg/dl Negative [facility] Serum or plasma albumin shadia urement (mass/volume)Ordered By: John Jack on 07-31-2023 Albumin [Mass/Vol] 3.5 g/dL 3.2-5.0 [facility] Serum or plasma albumin/glob ulin mass ratioOrdered By: John Jack on 07-31-2023 Albumin/Globulin [Mass ratio] 0.9 {ratio} 0.9-2.4 [facility] Serum or plasma calcium shadia urement (mass/volume)Ordered By: John Jack on 07-31-2023 Calcium [Mass/Vol] 9.3 mg/dL 8.5-10.1 [facility] Serum or plasma creatinine m easurement (mass/volume)Ordered By: John Jack on 07-31-2023 Creatinine [Mass/Vol] 0.92 mg/dL 0.55-1.02 [facility] Comment on above: The validity of the calculated GFR & GFRAA in patients over 70 years has not been determined. Clinical correlation is essential. Serum or plasma urea nitroge n measurement (mass/volume)Ordered By: John Jack on 07-31-2023 Urea nitrogen [Mass/Vol] 14 mg/dL -18 [facility] Squamous epithelial cells de tection in urine sediment by light microscopyOrdered By: John Jack on 07-31-2023 Epithelial cells.squamous LM Ql (Urine sed) 0 SEEN /hpf 5-10 [facility] Thin prep Papanicolaou smear with manual screeningOrdered By: John Jack on 07-31-2023 Thin prep Papanicolaou smear with manual screening 25 U/L 15-37 [facility] Comment on above: Moderate Hemolysis, Result may be falsely increased. Thin prep Papanicolaou smear with manual screening 8 5-15 [facility] UA DIP, URINE (POC)on 2022 BILIRUBIN UA (POCT) Negative Negative [facility] CLARITY UA (POCT) Slightly Cloudy Cl [facility] COLOR UA (POCT) Yellow [facility] GLUCOSE UA (POCT) Negative Negative mg/dL [facility] Hemoglobin Ql (U) Negative [facility] KETONE [facility]A (POCT) Negative Negative mg/dL [facility] LEUKOCYTES UA (POCT) Negative [facility] NITRITE UA (POCT) Negative [facility] PH UA (POCT) 7.0 4.5 - 8.0 [facility] Protein Ql (U) Trace Abnormal Negative mg/dL [facility] SPECIFIC GRAVITY UA (POCT) 1.025 1.005 - 1.030 [facility] UROBILINOGEN UA (POCT) 0.2 E.U./dL Cassy l E.U./dL [facility] Urine blood detectionOrdered By: John Jack on 07-31-2023 RBC Ql (U) 10 /ul Negative [facility] RBC Ql (U) 0-5 SEEN /hpf 0-5 [facility] Urine clarityOrdered By: Sidney Jack on 07-31-2023 Clarity (U) Clear Clear [facility] Urine color determinationOrd ered By: John Jack on 07-31-2023 Color (U) Yellow Yellow [facility] Urine glucose detectionOrder ed By: John Jack on 07-31-2023 Glucose Ql (U) Normal mg/dl Normal [facility] Urine leukocyte esterase det ection by dipstickOrdered By: John Jack on 07-31-2023 Leukocyte esterase Test strip Ql (U) 100 /ul Negative [facility] Urine pHOrdered By: John soto on 07-31-2023 pH (U) 7.0 [pH] 5.0 - 8.0 [facility] Urine sediment bacteria coun t by microscopy (number/high power field)Ordered By: John Jack on 07-31-2023 Bacteria LM.HPF (Urine sed) [#/Area] 0 /[HPF] None Seen [facility] Urine specific gravity measu rementOrdered By: John Jack on 07-31-2023 Specific gravity (U) [Rel density] 1.005 1.002-1.030 [facility] Urobilinogen Auto test strip Ql (U)Ordered By: John Jack on 07-31-2023 Urobilinogen Ql (U) Normal mg/dl Normal [facility] Absolute lymphocyte countOrd ered By: Sabrina Moran on 07-17-2023 Lymphocytes Auto (Unsp spec) [#/Vol] 2.42 10*3/uL 0.83-4.51 [facility] Basophil percentageOrdered B y: Sabrina Moran on 07-17-2023 Basophils/100 WBC (Bld) 1.0 % 0-1 [facility] Bilirubin [Mass/Vol] 0.50 mg/dL 0.20-1.00 [facility] Comment on above: For patients on eltr ombopag therapy, use of Dimension [place] TBIL is not recommended. Chloride [Moles/Vol] 107 mmol/L 98-107 [facility] Eosinophils/100 WBC (Bld) 4.2 % 0-5 [facility] Glucose [Mass/Vol] 100 mg/dL 74-106 [facility] Comment on above: Fasting Glucose resu lt from 100 to 125 mg/dL suggests IMPAIRED HOMEOSTASIS per A.D.A. criteria. Neutrophils (Bld) [#/Vol] 4.5 10*3/uL 2.0-7.7 [facility] Neutrophils/100 WBC (Bld) 55.1 % 47-70 [facility] Potassium [Moles/Vol] 3.9 mmol/L 3.5-5.1 [facility] Protein [Mass/Vol] 6.8 g/dL 6.4-8.2 [facility] Sodium [Moles/Vol] 139 mmol/L 136-145 [facility] WBC (Bld) [#/Vol] 8.2 10*3/uL 4.4-11.0 [facility] Blood erythrocytes count (nu mber/volume)Ordered By: Sabrina Moran on 07-17-2023 RBC (Bld) [#/Vol] 4.33 10*6/uL 4.2-5.4 [facility] Blood hemoglobin measurement (mass/volume)Ordered By: Sabrina Moran on 07-17-2023 Hemoglobin (Bld) [Mass/Vol] 13.5 g/dL 12.0-15.0 [facility] Blood lymphocytes/100 leukoc ytesOrdered By: Sabrina Moran on 07-17-2023 Lymphocytes/100 WBC (Bld) 29.7 % 19-41 [facility] Blood monocytes/100 leukocyt esOrdered By: Sabrina Moran on 07-17-2023 Monocytes/100 WBC (Bld) 9.1 % 0-10 [facility] Blood platelet mean volumeOr dered By: Sabrina Moran on 07-17-2023 Platelet mean volume (Bld) [Entitic vol] 10.1 fL 6.2-12.0 [facility] Determination of erythrocyte mean corpuscular volume (MCV)Ordered By: Sabrina Moran on 07-17-2023 MCV (RBC) [Entitic vol] 96.8 fL 81-99 [facility] Hematocrit Auto (Bld) [Volum e fraction]Ordered By: Sabrina Moran on 07-17-2023 Hematocrit (Bld) [Volume fraction] 41.9 % 37-47 [facility] Laboratory - Chemistry and C hemistry - challengeOrdered By: Sabrinacruz Moran on 07-17-2023 ALP [Catalytic activity/Vol] 62 U/L 45-117 [facility] ALT [Catalytic activity/Vol] 49 U/L 13-56 [facility] CO2 [Moles/Vol] 24.0 mmol/L 21.0-32.0 [facility] Globulin (S) [Mass/Vol] 3.2 g/dL 2.2-4.2 [facility] Urea nitrogen/Creatinine [Mass ratio] 17.6 mg/mg 10-20 [facility] Laboratory - Hematology and Cell countsOrdered By: Sabrina Moran on 07-17-2023 Erythrocyte distribution width (RBC) [Entitic vol] 44.7 fL 35.1-43.9 [facility] Erythrocyte distribution width (RBC) [Ratio] 12.7 % 11.6-14.6 [facility] Immature granulocytes/100 WBC (Bld) 0.900 % 0.0-0.9 [facility] Comment on above: IG% - Immature Granu locytes (promyelocytes, myelocytes and metamyelocytes) > 1% indicates that a LEFT SHIFT is Present. MCH (RBC) [Entitic mass] 31.2 pg 27.0-32.0 [facility] Nucleated RBC/100 WBC (Bld) [Ratio] 0 % 0-5 [facility] MCHC Auto (RBC) [Mass/Vol]Or dered By: Sabrina Moran on 07-17-2023 MCHC (RBC) [Mass/Vol] 32.2 g/dL 32-36 [facility] No Panel InformationOrdered By: Sabrina Moran on 07-17-2023 Estimated GFR (MDRD) Amer 86 mL/min >60 [facility] Comment on above: GFR Calc Estimated GFR (MDRD) Non-Af Amer 71 mL/min >60 [facility] Comment on above: Non- GFR Calc Platelets bldOrdered By: Delisa Moran on 07-17-2023 Platelets (Bld) [#/Vol] 230 10*3/uL 150-450 [facility] Serum or plasma albumin shadia urement (mass/volume)Ordered By: Sabrina Moran on 07-17-2023 Albumin [Mass/Vol] 3.6 g/dL 3.2-5.0 [facility] Serum or plasma albumin/glob ulin mass ratioOrdered By: Sarbina Moran on 07-17-2023 Albumin/Globulin [Mass ratio] 1.1 {ratio} 0.9-2.4 [facility] Serum or plasma calcium shadia urement (mass/volume)Ordered By: Sabrina Moran on 07-17-2023 Calcium [Mass/Vol] 8.7 mg/dL 8.5-10.1 [facility] Serum or plasma creatinine m easurement (mass/volume)Ordered By: Sabrina Moran on 07-17-2023 Creatinine [Mass/Vol] 0.85 mg/dL 0.55-1.02 [facility] Comment on above: The validity of the calculated GFR & GFRAA in patients over 70 years has not been determined. Clinical correlation is essential. Serum or plasma urea nitroge n measurement (mass/volume)Ordered By: Sabrina Moran on 07-17-2023 Urea nitrogen [Mass/Vol] 15 mg/dL 7-18 [facility] Thin prep Papanicolaou smear with manual screeningOrdered By: Sabrina Moran on 07-17-2023 Thin prep Papanicolaou smear with manual screening 31 U/L 15-37 [facility] Thin prep Papanicolaou smear with manual screening 8 5-15 [facility] CBC W Auto Differential pane l (Bld)on 06-27-2023 Basophils (Bld) [#/Vol] 0.07 10*3/uL <0.11 k/uL [facility] Basophils/100 WBC (Bld) 0.7 % [facility] Differential cell count method Nom (Bld) Auto [facility] Eosinophils (Bld) [#/Vol] 0.27 10*3/uL <0.46 k/uL [facility] Eosinophils/100 WBC (Bld) 2.7 % [facility] Erythrocyte distribution width (RBC) [Ratio] 12.8 % 11.5 - 15.0 % [facility] Hematocrit (Bld) [Volume fraction] 45.6 % 36.0 - 46.0 % [facility] Hemoglobin (Bld) [Mass/Vol] 14.7 g/dL 11.5 - 15.5 g/dL [facility] Immature granulocytes (Bld) [#/Vol] 0.08 10*3/uL <0.10 k/uL [facility] Immature granulocytes/100 WBC (Bld) 0.8 % [facility] Lymphocytes (Bld) [#/Vol] 2.69 10*3/uL 1.00 - 4.00 k/uL [facility] Lymphocytes/100 WBC (Bld) 26.8 % [facility] MCH (RBC) [Entitic mass] 31.1 pg 26.0 - 34.0 pg [facility] MCHC (RBC) [Mass/Vol] 32.2 g/dL 30.5 - 36.0 g/dL [facility] MCV (RBC) [Entitic vol] 96.4 fL 80.0 - 100.0 fL [facility] Monocytes (Bld) [#/Vol] 0.91 10*3/uL High <0.87 k/uL [facility] Monocytes/100 WBC (Bld) 9.1 % [facility] Neutrophils (Bld) [#/Vol] 6.02 10*3/uL 1.45 - 7.50 k/uL [facility] Neutrophils/100 WBC (Bld) 59.9 % [facility] Nucleated RBC (Bld) [#/Vol] <0.01 k/uL [facility] Nucleated RBC/100 WBC (Bld) [Ratio] 0.0 /100 WBC [facility] Platelet mean volume (Bld) [Entitic vol] 10.1 fL 9.0 - 12.7 fL [facility] Platelets (Bld) [#/Vol] 311 10*3/uL 150 - 400 k/uL [facility] RBC (Bld) [#/Vol] 4.73 10*6/uL 3.90 - 5.2 0 m/uL [facility] WBC (Bld) [#/Vol] 10.04 10*3/uL 3.70 - 11.00 k/uL [facility] HbA1c (Bld)on 06-27-2023 Average glucose Estimated from glycated hemoglobin (Bld) [Mass/Vol] 114 mg/dL [facility] HbA1c (Bld) [Mass fraction] 5.6 % 4.3 - 5.6 % [facility] Urinalysis complete panel (U )on 06-27-2023 Bilirubin Ql (U) Negative Negative [facility] Clarity (Unsp spec) Clear Clear [facility] Color (U) Yellow Yellow [facility] Epithelial cells LM.HPF (Urine sed) [#/Area] Few [facility] Glucose Test strip (U) [Mass/Vol] Negative Trace, Negative [facility] Hemoglobin Ql (U) Negative Negative, Trace [facility] Ketones Ql (U) Negative Trace, Negative [facility] Leukocyte esterase Test strip Ql (U) Negative Negative, 25 Flaquito/uL [facility] Nitrite Ql (U) Negative Negative [facility] pH (U) 7.0 [pH] 5.0 - 8.0 [facility] Protein (U) [Mass/Vol] 2+ Abnormal Trace , Negative [facility] RBC LM.HPF (Urine sed) [#/Area] 0-3 /HPF 0-3 /HPF [facility] Specific gravity (U) [Rel density] 1.027 1.005 - 1.030 [facility] Urobilinogen Ql (U) Negative Negative [facility] WBC LM.HPF (Urine sed) [#/Area] 0-5 /HPF 0-5 /HPF [facility] ALBUMIN/CREAT RATIO RND URon 06-26-2023 Albumin DL <= 20 mg/L (U) [Mass/Vol] 27.4 mg/L [facility] Albumin/Creatinine (U) [Mass ratio] 16 mg/g <30 mg/g [facility] Creatinine (U) [Mass/Vol] 174.5 mg/dL 20.0 - 300.0 mg/dL [facility] Absolute lymphocyte countOrd ered By: Sabrina Moran on 04-17-2023 Lymphocytes Auto (Unsp spec) [#/Vol] 1.95 10*3/uL 0.83-4.51 [facility] Basophil percentageOrdered B y: Sabrina Moran on 04-17-2023 Basophils/100 WBC (Bld) 0.9 % 0-1 [facility] Bilirubin [Mass/Vol] 0.60 mg/dL 0.20-1.00 [facility] Comment on above: For patients on eltr ombopag therapy, use of Dimension [place] TBIL is not recommended. Chloride [Moles/Vol] 106 mmol/L 98-107 [facility] Eosinophils/100 WBC (Bld) 5.4 % 0-5 [facility] Glucose [Mass/Vol] 104 mg/dL 74-106 [facility] Comment on above: Fasting Glucose resu lt from 100 to 125 mg/dL suggests IMPAIRED HOMEOSTASIS per A.D.A. criteria. Neutrophils (Bld) [#/Vol] 5.7 10*3/uL 2.0-7.7 [facility] Neutrophils/100 WBC (Bld) 61.8 % 47-70 [facility] Potassium [Moles/Vol] 4.3 mmol/L 3.5-5.1 [facility] Protein [Mass/Vol] 7.4 g/dL 6.4-8.2 [facility] Sodium [Moles/Vol] 137 mmol/L 136-145 [facility] WBC (Bld) [#/Vol] 9.2 10*3/uL 4.4-11.0 [facility] Blood erythrocytes count (nu mber/volume)Ordered By: Sabrina Moran on 04-17-2023 RBC (Bld) [#/Vol] 4.62 10*6/uL 4.2-5.4 [facility] Blood hemoglobin measurement (mass/volume)Ordered By: Sabrina Moran on 04-17-2023 Hemoglobin (Bld) [Mass/Vol] 14.5 g/dL 12.0-15.0 [facility] Blood lymphocytes/100 leukoc ytesOrdered By: Sabrina Moran on 04-17-2023 Lymphocytes/100 WBC (Bld) 21.2 % 19-41 [facility] Blood monocytes/100 leukocyt esOrdered By: Sabrina Moran on 04-17-2023 Monocytes/100 WBC (Bld) 9.9 % 0-10 [facility] Blood platelet mean volumeOr dered By: Sabrina Moran on 04-17-2023 Platelet mean volume (Bld) [Entitic vol] 10.3 fL 6.2-12.0 [facility] Determination of erythrocyte mean corpuscular volume (MCV)Ordered By: Sabrina Moran on 04-17-2023 MCV (RBC) [Entitic vol] 98.9 fL 81-99 [facility] Hematocrit Auto (Bld) [Volum e fraction]Ordered By: Sabrina Moran on 04-17-2023 Hematocrit (Bld) [Volume fraction] 45.7 % 37-47 [facility] Laboratory - Chemistry and C hemistry - challengeOrdered By: Sabrina Moran on 04-17-2023 ALP [Catalytic activity/Vol] 64 U/L 45-117 [facility] ALT [Catalytic activity/Vol] 49 U/L 13-56 [facility] CO2 [Moles/Vol] 25.0 mmol/L 21.0-32.0 [facility] Globulin (S) [Mass/Vol] 3.7 g/dL 2.2-4.2 [facility] Urea nitrogen/Creatinine [Mass ratio] 19.5 mg/mg 10-20 [facility] Laboratory - Hematology and Cell countsOrdered By: Sabrina Moran on 04-17-2023 Erythrocyte distribution width (RBC) [Entitic vol] 47.1 fL 35.1-43.9 [facility] Erythrocyte distribution width (RBC) [Ratio] 13.2 % 11.6-14.6 [facility] Immature granulocytes/100 WBC (Bld) 0.800 % 0.0-0.9 [facility] Comment on above: IG% - Immature Granu locytes (promyelocytes, myelocytes and metamyelocytes) > 1% indicates that a LEFT SHIFT is Present. MCH (RBC) [Entitic mass] 31.4 pg 27.0-32.0 [facility] Nucleated RBC/100 WBC (Bld) [Ratio] 0 % 0-5 [facility] MCHC Auto (RBC) [Mass/Vol]Or dered By: Sabrina Moran on 04-17-2023 MCHC (RBC) [Mass/Vol] 31.7 g/dL 32-36 [facility] No Panel InformationOrdered By: Sabrina Moran on 04-17-2023 Estimated GFR (MDRD) Amer 73 mL/min >60 [facility] Comment on above: GFR Calc Estimated GFR (MDRD) Non-Af Amer 61 mL/min >60 [facility] Comment on above: Non- GFR Calc Platelets bldOrdered By: Delisa Moran on 04-17-2023 Platelets (Bld) [#/Vol] 231 10*3/uL 150-450 [facility] Serum or plasma albumin shadia urement (mass/volume)Ordered By: Sabrina Moran on 04-17-2023 Albumin [Mass/Vol] 3.7 g/dL 3.2-5.0 [facility] Serum or plasma albumin/glob ulin mass ratioOrdered By: Sabrina Moran on 04-17-2023 Albumin/Globulin [Mass ratio] 1.0 {ratio} 0.9-2.4 [facility] Serum or plasma calcium shadia urement (mass/volume)Ordered By: Sabrina Moran on 04-17-2023 Calcium [Mass/Vol] 9.5 mg/dL 8.5-10.1 [facility] Serum or plasma creatinine m easurement (mass/volume)Ordered By: Sabrina Moran on 04-17-2023 Creatinine [Mass/Vol] 0.98 mg/dL 0.55-1.02 [facility] Comment on above: The validity of the calculated GFR & GFRAA in patients over 70 years has not been determined. Clinical correlation is essential. Serum or plasma urea nitroge n measurement (mass/volume)Ordered By: Sabrina Moran on 04-17-2023 Urea nitrogen [Mass/Vol] 19 mg/dL 7-18 [facility] Thin prep Papanicolaou smear with manual screeningOrdered By: Sabrina Moran on 04-17-2023 Thin prep Papanicolaou smear with manual screening 26 U/L 15-37 [facility] Thin prep Papanicolaou smear with manual screening 6 5-15 [facility] Absolute lymphocyte countOrd ered By: Sabirna Moran on 01-30-2023 Lymphocytes Auto (Unsp spec) [#/Vol] 2.68 10*3/uL 0.83-4.51 [facility] Basophil percentageOrdered B y: Sabrina Moran on 01-30-2023 Basophils/100 WBC (Bld) 0.6 % 0-1 [facility] Bilirubin [Mass/Vol] 0.70 mg/dL 0.20-1.00 [facility] Comment on above: For patients on eltr ombopag therapy, use of Dim[employer] [place] TBIL is not recommended. Chloride [Moles/Vol] 106 mmol/L 98-107 [facility] Eosinophils/100 WBC (Bld) 0.8 % 0-5 [facility] Glucose [Mass/Vol] 104 mg/dL 74-106 [facility] Comment on above: Fasting Glucose resu lt from 100 to 125 mg/dL suggests IMPAIRED HOMEOSTASIS per A.D.A. criteria. Neutrophils (Bld) [#/Vol] 8.3 10*3/uL 2.0-7.7 [facility] Neutrophils/100 WBC (Bld) 68.0 % 47-70 [facility] Potassium [Moles/Vol] 3.8 mmol/L 3.5-5.1 [facility] Protein [Mass/Vol] 7.0 g/dL 6.4-8.2 [facility] Sodium [Moles/Vol] 137 mmol/L 136-145 [facility] WBC (Bld) [#/Vol] 12.3 10*3/uL 4.4-11.0 [facility] Blood erythrocytes count (nu mber/volume)Ordered By: Sabrina Moran on 01-30-2023 RBC (Bld) [#/Vol] 4.58 10*6/uL 4.2-5.4 [facility] Blood hemoglobin measurement (mass/volume)Ordered By: Sabrina Moran on 01-30-2023 Hemoglobin (Bld) [Mass/Vol] 14.3 g/dL 12.0-15.0 [facility] Blood lymphocytes/100 leukoc ytesOrdered By: Sabrina Moran on 01-30-2023 Lymphocytes/100 WBC (Bld) 21.8 % 19-41 [facility] Blood monocytes/100 leukocyt esOrdered By: Sabrina Moran on 01-30-2023 Monocytes/100 WBC (Bld) 8.1 % 0-10 [facility] Blood platelet mean volumeOr dered By: Sabrina Moran on 01-30-2023 Platelet mean volume (Bld) [Entitic vol] 10.1 fL 6.2-12.0 [facility] Determination of erythrocyte mean corpuscular volume (MCV)Ordered By: Sabrina Moran on 01-30-2023 MCV (RBC) [Entitic vol] 97.4 fL 81-99 [facility] Hematocrit Auto (Bld) [Volum e fraction]Ordered By: [facility] Dean on 01-30-2023 Hematocrit (Bld) [Volume fraction] 44.6 % 37-47 [facility] Laboratory - Chemistry and C hemistry - challengeOrdered By: [facility] Dean on 01-30-2023 ALP [Catalytic activity/Vol] 62 U/L 45-117 [facility] ALT [Catalytic activity/Vol] 42 U/L 13-56 [facility] CO2 [Moles/Vol] 26.0 mmol/L 21.0-32.0 [facility] Globulin (S) [Mass/Vol] 3.5 g/dL 2.2-4.2 [facility] Urea nitrogen/Creatinine [Mass ratio] 19.0 mg/mg 10-20 [facility] Laboratory - Hematology and Cell countsOrdered By: [facility] on 01-30-2023 Erythrocyte distribution width (RBC) [Entitic vol] 45.6 fL 35.1-43.9 [facility] Erythrocyte distribution width (RBC) [Ratio] 13.0 % 11.6-14.6 [facility] Immature granulocytes/100 WBC (Bld) 0.700 % 0.0-0.9 [facility] Comment on above: IG% - Immature Granu locytes (promyelocytes, myelocytes and metamyelocytes) > 1% indicates that a LEFT SHIFT is Present. MCH (RBC) [Entitic mass] 31.2 pg 27.0-32.0 [facility] Nucleated RBC/100 WBC (Bld) [Ratio] 0 % 0-5 [facility] MCHC Auto (RBC) [Mass/Vol]Or dered By: Sabrina Moran on 01-30-2023 MCHC (RBC) [Mass/Vol] 32.1 g/dL 32-36 [facility] No Panel InformationOrdered By: Sabrina Moran on 01-30-2023 Estimated GFR (MDRD) Amer 87 mL/min >60 [facility] Comment on above: GFR Calc Estimated GFR (MDRD) Non-Af Amer 72 mL/min >60 [facility] Comment on above: Non- GFR Calc Platelets bldOrdered By: Delisa Moran on 01-30-2023 Platelets (Bld) [#/Vol] 246 10*3/uL 150-450 [facility] Serum or plasma albumin shadia urement (mass/volume)Ordered By: Sabrina Moran on 01-30-2023 Albumin [Mass/Vol] 3.5 g/dL 3.2-5.0 [facility] Serum or plasma albumin/glob ulin mass ratioOrdered By: Sabrina Moran on 01-30-2023 Albumin/Globulin [Mass ratio] 1.0 {ratio} 0.9-2.4 [facility] Serum or plasma calcium shadia urement (mass/volume)Ordered By: Sabrina Moran on 01-30-2023 Calcium [Mass/Vol] 8.8 mg/dL 8.5-10.1 [facility] Serum or plasma creatinine m easurement (mass/volume)Ordered By: Sabrina Moran on 01-30-2023 Creatinine [Mass/Vol] 0.84 mg/dL 0.55-1.02 [facility] Comment on above: The validity of the calculated GFR & GFRAA in patients over 70 years has not been determined. Clinical correlation is essential. Serum or plasma urea nitroge n measurement (mass/volume)Ordered By: Sabrina Moran on 01-30-2023 Urea nitrogen [Mass/Vol] 16 mg/dL 7-18 [facility] Thin prep Papanicolaou smear with manual screeningOrdered By: Sabrina Moran on 01-30-2023 Thin prep Papanicolaou smear with manual screening 24 U/L 15-37 [facility] Thin prep Papanicolaou smear with manual screening 5 5-15 [facility] STREP A MOLECULAR (POC)on Procedural Control Valid [facility] Strep A (POCT) Negative Negative [facility] Absolute lymphocyte countOrd ered By: Dr. Moran on 11-07-2022 Lymphocytes Auto (Unsp spec) [#/Vol] 1.96 10*3/uL 0.83-4.51 [facility] Basophil percentageOrdered B y: Dr. Moran on 11-07-2022 Basophils/100 WBC (Bld) 0.6 % 0-1 [facility] Bilirubin [Mass/Vol] 0.50 mg/dL 0.20-1.00 [facility] Comment on above: For patients on eltr ombopag therapy, use of [employer] [place] TBIL is not recommended. Chloride [Moles/Vol] 110 mmol/L 98-107 [facility] Eosinophils/100 WBC (Bld) 0.7 % 0-5 [facility] Glucose [Mass/Vol] 91 mg/dL 74-106 [facility] Neutrophils (Bld) [#/Vol] 7.0 10*3/uL 2.0-7.7 [facility] Neutrophils/100 WBC (Bld) 71.0 % 47-70 [facility] Potassium [Moles/Vol] 4.1 mmol/L 3.5-5.1 [facility] Protein [Mass/Vol] 7.1 g/dL 6.4-8.2 [facility] Sodium [Moles/Vol] 141 mmol/L 136-145 [facility] WBC (Bld) [#/Vol] 9.9 10*3/uL 4.4-11.0 [facility] Blood erythrocytes count (nu mber/volume)Ordered By: Dr. Moran on 11-07-2022 RBC (Bld) [#/Vol] 4.59 10*6/uL 4.2-5.4 [facility] Blood hemoglobin measurement (mass/volume)Ordered By: Dr. Moran on 11-07-2022 Hemoglobin (Bld) [Mass/Vol] 14.2 g/dL 12.0-15.0 [facility] Blood lymphocytes/100 leukoc ytesOrdered By: Dr. Moran on 11-07-2022 Lymphocytes/100 WBC (Bld) 19.8 % 19-41 [facility] Blood monocytes/100 leukocyt esOrdered By: Dr. Moran on 11-07-2022 Monocytes/100 WBC (Bld) 6.8 % 0-10 [facility] Blood platelet mean volumeOr dered By: Dr. Moran on 11-07-2022 Platelet mean volume (Bld) [Entitic vol] 10.4 fL 6.2-12.0 [facility] Determination of erythrocyte mean corpuscular volume (MCV)Ordered By: Dr. Moran on 11-07-2022 MCV (RBC) [Entitic vol] 96.1 fL 81-99 [facility] Hematocrit Auto (Bld) [Volum e fraction]Ordered By: Dr. Moran on 11-07-2022 Hematocrit (Bld) [Volume fraction] 44.1 % 37-47 [facility] Laboratory - Chemistry and C hemistry - challengeOrdered By: Dr. Moran on 11-07-2022 ALP [Catalytic activity/Vol] 58 U/L 45-117 [facility] ALT [Catalytic activity/Vol] 44 U/L 13-56 [facility] CO2 [Moles/Vol] 24.0 mmol/L 21.0-32.0 [facility] Globulin (S) [Mass/Vol] 3.5 g/dL 2.2-4.2 [facility] Urea nitrogen/Creatinine [Mass ratio] 21.2 mg/mg 10-20 [facility] Laboratory - Hematology and Cell countsOrdered By: Dr. Moran on 11-07-2022 Erythrocyte distribution width (RBC) [Entitic vol] 45.3 fL 35.1-43.9 [facility] Erythrocyte distribution width (RBC) [Ratio] 13.1 % 11.6-14.6 [facility] Immature granulocytes/100 WBC (Bld) 1.100 % 0.0-0.9 [facility] Comment on above: IG% - Immature Granu locytes (promyelocytes, myelocytes and metamyelocytes) > 1% indicates that a LEFT SHIFT is Present. MCH (RBC) [Entitic mass] 30.9 pg 27.0-32.0 [facility] Nucleated RBC/100 [facility] (Bld) [[facility]] 0 [facility] [[facility]/Vol]Or dered By: Dr. Moran on 11-07-2022 MCHC (RBC) [Mass/Vol] 32.2 g/dL 32-36 [facility] No Panel InformationOrdered By: Dr. Moran on 11-07-2022 Estimated GFR (MDRD) Amer 81 mL/min >60 [facility] Comment on above: GFR Calc Estimated GFR (MDRD) Non-Af Amer 67 mL/min >60 [facility] Comment on above: Non- GFR Calc Platelets bldOrdered By: Dr. Moran on 11-07-2022 Platelets (Bld) [#/Vol] 271 10*3/uL 150-450 [facility] Serum or plasma albumin shadia urement (mass/volume)Ordered By: Dr. Moran on 11-07-2022 Albumin [Mass/Vol] 3.6 g/dL 3.2-5.0 [facility] Serum or plasma albumin/glob ulin mass ratioOrdered By: Dr. Moran on 11-07-2022 Albumin/Globulin [Mass ratio] 1.0 {ratio} 0.9-2.4 [facility] Serum or plasma calcium shadia urement (mass/volume)Ordered By: Dr. Moran on 11-07-2022 Calcium [Mass/Vol] 8.8 mg/dL 8.5-10.1 [facility] Serum or plasma creatinine m easurement (mass/volume)Ordered By: Dr. Moran on 11-07-2022 Creatinine [Mass/Vol] 0.90 mg/dL 0.55-1.02 [facility] Comment on above: The validity of the calculated GFR & GFRAA in patients over 70 years has not been determined. Clinical correlation is essential. Serum or plasma urea nitroge n measurement (mass/volume)Ordered By: Dr. Moran on 11-07-2022 Urea nitrogen [Mass/Vol] 19 mg/dL 7-18 [facility] Thin prep Papanicolaou smear with manual screeningOrdered By: Dr. Moran on 11-07-2022 Thin prep Papanicolaou smear with manual screening 22 U/L 15-37 [facility] Thin prep Papanicolaou smear with manual screening 7 5-15 [facility] Absolute lymphocyte countOrd ered By: Dr. Moran on 09-23-2022 Lymphocytes Auto (Unsp spec) [#/Vol] 3.00 10*3/uL 0.83-4.51 [facility] Basophil percentageOrdered B y: Dr. Moran on 09-23-2022 Basophils/100 WBC (Bld) 0.8 % 0-1 [facility] Bilirubin [Mass/Vol] 0.50 mg/dL 0.20-1.00 [facility] Comment on above: For patients on eltr ombopag therapy, use of [employer] [place] TBIL is not recommended. Chloride [Moles/Vol] 104 mmol/L 98-107 [facility] Eosinophils/100 WBC (Bld) 1.6 % 0-5 [facility] Glucose [Mass/Vol] 158 mg/dL 74-106 [facility] Comment on above: Fasting Glucose resu lt greater than or equal to 126 mg/dL suggests DIABETES MELLITUS per A.D.A. criteria. Neutrophils (Bld) [#/Vol] 7.0 10*3/uL 2.0-7.7 [facility] Neutrophils/100 WBC (Bld) 63.6 % 47-70 [facility] Potassium [Moles/Vol] 3.9 mmol/L 3.5-5.1 [facility] Protein [Mass/Vol] 6.7 g/dL 6.4-8.2 [facility] Sodium [Moles/Vol] 141 mmol/L 136-145 [facility] WBC (Bld) [#/Vol] 11.0 10*3/uL 4.4-11.0 [facility] Blood erythrocytes count (nu mber/volume)Ordered By: Dr. Moran on 09-23-2022 RBC (Bld) [#/Vol] 4.60 10*6/uL 4.2-5.4 [facility] Blood hemoglobin measurement (mass/volume)Ordered By: Dr. Moran on 09-23-2022 Hemoglobin (Bld) [Mass/Vol] 14.2 g/dL 12.0-15.0 [facility] Blood lymphocytes/100 leukoc ytesOrdered By: Dr. Moran on 09-23-2022 Lymphocytes/100 WBC (Bld) 27.4 % 19-41 [facility] Blood monocytes/100 leukocyt esOrdered By: Dr. Moran on 09-23-2022 Monocytes/100 WBC (Bld) 5.9 % 0-10 [facility] Blood platelet mean volumeOr dered By: Dr. Moran on 09-23-2022 Platelet mean volume (Bld) [Entitic vol] 10.1 fL 6.2-12.0 [facility] Determination of erythrocyte mean corpuscular volume (MCV)Ordered By: Dr. Moran on 09-23-2022 MCV (RBC) [Entitic vol] 97.8 fL 81-99 [facility] Hematocrit Auto (Bld) [Volum e fraction]Ordered By: Dr. Moran on 09-23-2022 Hematocrit (Bld) [Volume fraction] 45.0 % 37-47 [facility] Laboratory - Chemistry and C hemistry - challengeOrdered By: Dr. Moran on 09-23-2022 ALP [Catalytic activity/Vol] 64 U/L 45-117 [facility] ALT [Catalytic activity/Vol] 45 U/L 13-56 [facility] CO2 [Moles/Vol] 28.0 mmol/L 21.0-32.0 [facility] Globulin (S) [Mass/Vol] 3.1 g/dL 2.2-4.2 [facility] Urea nitrogen/Creatinine [Mass ratio] 22.4 mg/mg 10-20 [facility] Laboratory - Hematology and Cell countsOrdered By: Dr. Moran on 09-23-2022 Erythrocyte distribution width (RBC) [Entitic vol] 46.4 fL 35.1-43.9 [facility] Erythrocyte distribution width (RBC) [Ratio] 13.1 % 11.6-14.6 [facility] Immature granulocytes/100 WBC (Bld) 0.700 % 0.0-0.9 [facility] Comment on above: IG% - Immature Granu locytes (promyelocytes, myelocytes and metamyelocytes) > 1% indicates that a LEFT SHIFT is Present. MCH (RBC) [Entitic mass] 30.9 pg 27.0-32.0 [facility] Nucleated RBC/100 WBC (Bld) [Ratio] 0 % 0-5 [facility] MCHC Auto (RBC) [Mass/Vol]Or dered By: Dr. Moran on 09-23-2022 MCHC (RBC) [Mass/Vol] 31.6 g/dL 32-36 [facility] No Panel InformationOrdered By: Dr. Moran on 09-23-2022 Estimated GFR (MDRD) Amer 77 mL/min >60 [facility] Comment on above: GFR Calc Estimated GFR (MDRD) Non-Af Amer 64 mL/min >60 [facility] Comment on above: Non- GFR Calc Platelets bldOrdered By: Dr. Moran on 09-23-2022 Platelets (Bld) [#/Vol] 280 10*3/uL 150-450 [facility] Serum or plasma albumin shadia urement (mass/volume)Ordered By: Dr. Moran on 09-23-2022 Albumin [Mass/Vol] 3.6 g/dL 3.2-5.0 [facility] Serum or plasma albumin/glob ulin mass ratioOrdered By: Dr. Moran on 09-23-2022 Albumin/Globulin [Mass ratio] 1.2 {ratio} 0.9-2.4 [facility] Serum or plasma calcium shadia urement (mass/volume)Ordered By: Dr. Moran on 09-23-2022 Calcium [Mass/Vol] 9.2 mg/dL 8.5-10.1 [facility] Serum or plasma creatinine m easurement (mass/volume)Ordered By: Dr. Moran on 09-23-2022 Creatinine [Mass/Vol] 0.94 mg/dL 0.55-1.02 [facility] Comment on above: The validity of the calculated GFR & GFRAA in patients over 70 years has not been determined. Clinical correlation is essential. Serum or plasma urea nitroge n measurement (mass/volume)Ordered By: Dr. Moran on 09-23-2022 Urea nitrogen [Mass/Vol] 21 mg/dL 7-18 [facility] Thin prep Papanicolaou smear with manual screeningOrdered By: Dr. Moran on 09-23-2022 Thin prep Papanicolaou smear with manual screening 19 U/L 15-37 [facility] Thin prep Papanicolaou smear with manual screening 9 5-15 [facility] Absolute lymphocyte counton 05-25-2022 Lymphocytes Auto (Unsp spec) [#/Vol] 3.58 10*3/uL 0.83-4.51 [facility] Work Phone: Basophil percentageon 2021 Basophils/100 WBC (Bld) 0.8 % 0-1 [facility] Work Phone: Bilirubin [Mass/Vol] 0.40 mg/dL 0.20-1.00 [facility] Work Phone: Comment on above: For patients on eltr ombopag therapy, use of Dimension [place] TBIL is not recommended. Chloride [Moles/Vol] 103 mmol/L 98-107 [facility] Work Phone: Eosinophils/100 WBC (Bld) 1.6 % 0-5 [facility] Work Phone: Glucose [Mass/Vol] 96 mg/dL 74-106 [facility] Work Phone: Neutrophils (Bld) [#/Vol] 6.6 10*3/uL 2.0-7.7 [facility] Work Phone: Neutrophils/100 WBC (Bld) 56.4 % 47-70 [facility] Work Phone: Potassium [Moles/Vol] 4.0 mmol/L 3.5-5.1 [facility] Work Phone: Protein [Mass/Vol] 7.3 g/dL 6.4-8.2 [facility] Work Phone: Sodium [Moles/Vol] 138 mmol/L 136-145 [facility] Work Phone: WBC (Bld) [#/Vol] 11.8 10*3/uL 4.4-11.0 [facility] Work Phone: Blood erythrocytes count (nu mber/volume)on 05-25-2022 RBC (Bld) [#/Vol] 4.71 10*6/uL 4.2-5.4 [facility] Work Phone: Blood hemoglobin measurement (mass/volume)on 05-25-2022 Hemoglobin (Bld) [Mass/Vol] 14.8 g/dL 12.0-15.0 [facility] Work Phone: [phone] Blood lymphocytes/100 leukoc yteson 05-25-2022 Lymphocytes/100 WBC (Bld) 30.4 % 19-41 [facility] Work Phone: [phone] Blood monocytes/100 leukocyt eson 05-25-2022 Monocytes/100 WBC (Bld) 9.7 % 0-10 [facility] Work Phone: Blood platelet mean volumeon 05-25-2022 Platelet mean volume (Bld) [Entitic vol] 10.2 fL 6.2-12.0 [facility] Work Phone: Determination of erythrocyte mean corpuscular volume (MCV)on 05-25-2022 MCV (RBC) [Entitic vol] 95.8 fL 81-99 [facility] Work Phone: Hematocrit Auto (Bld) [Volum e fraction]on 05-25-2022 Hematocrit (Bld) [Volume fraction] 45.1 % 37-47 [facility] Work Phone: Laboratory - Chemistry and C hemistry - challengeon 05-25-2022 ALP [Catalytic activity/Vol] 61 U/L 45-117 [facility] Work Phone: ALT [Catalytic activity/Vol] 58 U/L 13-56 [facility] Work Phone: CO2 [Moles/Vol] 29.0 mmol/L 21.0-32.0 [facility] Work Phone: Globulin (S) [Mass/Vol] 3.7 g/dL 2.2-4.2 [facility] Work Phone: Urea nitrogen/Creatinine [Mass ratio] 26.9 mg/mg 10-20 [facility] Work Phone: Laboratory - Hematology and Cell countson 05-25-2022 Erythrocyte distribution width (RBC) [Entitic vol] 45.5 fL 35.1-43.9 [facility] Work Phone: Erythrocyte distribution width (RBC) [Ratio] 13.1 % 11.6-14.6 [facility] Work Phone: Immature granulocytes/100 WBC (Bld) 1.100 % 0.0-0.9 [facility] Work Phone: Comment on above: IG% - Immature Granu locytes (promyelocytes, myelocytes and metamyelocytes) > 1% indicates that a LEFT SHIFT is Present. MCH (RBC) [Entitic mass] 31.4 pg 27.0-32.0 [facility] Work Phone: Nucleated RBC/100 WBC (Bld) [Ratio] 0 % 0-5 [facility] Work Phone: MCHC Auto (RBC) [Mass/Vol]on 05-25-2022 MCHC (RBC) [Mass/Vol] 32.8 g/dL 32-36 [facility] Work Phone: No Panel Informationon 05-25 Estimated GFR (MDRD) Amer 74 mL/min >60 [facility] Work Phone: Comment on above: GFR Calc Estimated GFR (MDRD) Non-Af Amer 61 mL/min >60 [facility] Work Phone: Comment on above: Non- GFR Calc Platelets bldon 05-25-2022 Platelets (Bld) [#/Vol] 305 10*3/uL 150-450 [facility] Work Phone: Serum or plasma albumin shadia urement (mass/volume)on 05-25-2022 Albumin [Mass/Vol] 3.6 g/dL 3.2-5.0 [facility] Work Phone: Serum or plasma albumin/glob ulin mass ratioon 05-25-2022 Albumin/Globulin [Mass ratio] 1.0 {ratio} 0.9-2.4 [facility] Work Phone: Serum or plasma calcium shadia urement (mass/volume)on 05-25-2022 Calcium [Mass/Vol] 8.9 mg/dL 8.5-10.1 [facility] Work Phone: Serum or plasma creatinine m easurement (mass/volume)on 05-25-2022 Creatinine [Mass/Vol] 0.97 mg/dL 0.55-1.02 [facility] Work Phone: Comment on above: The validity of the calculated GFR & GFRAA in patients over 70 years has not been determined. Clinical correlation is essential. Serum or plasma urea nitroge n measurement (mass/volume)on 05-25-2022 Urea nitrogen [Mass/Vol] 26 mg/dL 7-18 [facility] Work Phone: Thin prep Papanicolaou smear with manual screeningon 05-25-2022 Thin prep Papanicolaou smear with manual screening 26 U/L 15-37 [facility] Work Phone: Thin prep Papanicolaou smear with manual screening 6 5-15 [facility] Work Phone: Basophil percentageon 2021 Bilirubin [Mass/Vol] 0.50 mg/dL 0.20-1.00 [facility] Work Phone: Comment on above: For patients on eltr ombopag therapy, use of Dimension [place] TBIL is not recommended. Chloride [Moles/Vol] 107 mmol/L 98-107 [facility] Work Phone: Glucose [Mass/Vol] 109 mg/dL 74-106 [facility] Work Phone: Comment on above: Fasting Glucose resu lt from 100 to 125 mg/dL suggests IMPAIRED HOMEOSTASIS per A.D.A. criteria. Potassium [Moles/Vol] 4.2 mmol/L 3.5-5.1 [facility] Work Phone: Protein [Mass/Vol] 7.1 g/dL 6.4-8.2 [facility] Work Phone: Sodium [Moles/Vol] 139 mmol/L 136-145 [facility] Work Phone: Laboratory - Chemistry and C hemistry - challengeon 03-17-2022 ALP [Catalytic activity/Vol] 57 U/L 45-117 [facility] Work Phone: ALT [Catalytic activity/Vol] 55 U/L 13-56 [facility] Work Phone: CO2 [Moles/Vol] 29.0 mmol/L 21.0-32.0 [facility] Work Phone: Globulin (S) [Mass/Vol] 3.5 g/dL 2.2-4.2 [facility] Work Phone: Urea nitrogen/Creatinine [Mass ratio] 21.6 mg/mg 10-20 [facility] Work Phone: No Panel Informationon 03-17 Estimated GFR (MDRD) Amer 83 mL/min >60 [facility] Work Phone: Comment on above: GFR Calc Estimated GFR (MDRD) Non-Af Amer 69 mL/min >60 [facility] Work Phone: Comment on above: Non- GFR Calc Serum or plasma albumin shadia urement (mass/volume)on 03-17-2022 Albumin [Mass/Vol] 3.6 g/dL 3.2-5.0 [facility] Work Phone: Serum or plasma albumin/glob ulin mass ratioon 03-17-2022 Albumin/Globulin [Mass ratio] 1.0 {ratio} 0.9-2.4 [facility] Work Phone: Serum or plasma calcium shadia urement (mass/volume)on 03-17-2022 Calcium [Mass/Vol] 9.3 mg/dL 8.5-10.1 [facility] Work Phone: Serum or plasma creatinine m easurement (mass/volume)on 03-17-2022 Creatinine [Mass/Vol] 0.88 mg/dL 0.55-1.02 [facility] Work Phone: Comment on above: The validity of the calculated GFR & GFRAA in patients over 70 years has not been determined. Clinical correlation is essential. Serum or plasma urea nitroge n measurement (mass/volume)on 03-17-2022 Urea nitrogen [Mass/Vol] 19 mg/dL 7-18 [facility] Work Phone: Thin prep Papanicolaou smear with manual screeningon 03-17-2022 Thin prep Papanicolaou smear with manual screening 33 U/L 15-37 [facility] Work Phone: Thin prep Papanicolaou smear with manual screening 3 5-15 [facility] Work Phone: Absolute lymphocyte counton 02-15-2022 Lymphocytes Auto (Unsp spec) [#/Vol] 2.15 10*3/uL 0.83-4.51 [facility] Work Phone: Basophil percentageon 2021 Basophils/100 WBC (Bld) 1.0 % 0-1 [facility] Work Phone: Bilirubin [Mass/Vol] 0.50 mg/dL 0.20-1.00 [facility] Work Phone: Comment on above: For patients on eltr ombopag therapy, use of Dimension [place] TBIL is not recommended. Chloride [Moles/Vol] 101 mmol/L 98-107 [facility] Work Phone: Eosinophils/100 WBC (Bld) 3.4 % 0-5 [facility] Work Phone: Glucose [Mass/Vol] 104 mg/dL 74-106 [facility] Work Phone: Comment on above: Fasting Glucose resu lt from 100 to 125 mg/dL suggests IMPAIRED HOMEOSTASIS per A.D.A. criteria. Neutrophils (Bld) [#/Vol] 3.5 10*3/uL 2.0-7.7 [facility] Work Phone: Neutrophils/100 WBC (Bld) 51.5 % 47-70 [facility] Work Phone: Potassium [Moles/Vol] 4.1 mmol/L 3.5-5.1 [facility] Work Phone: Protein [Mass/Vol] 7.1 g/dL 6.4-8.2 [facility] Work Phone: [phone] Sodium [Moles/Vol] 137 mmol/L 136-145 [facility] Work Phone: WBC (Bld) [#/Vol] 6.8 10*3/uL 4.4-11.0 [facility] Work Phone: Blood erythrocytes count (nu mber/volume)on 02-15-2022 RBC (Bld) [#/Vol] 4.53 10*6/uL 4.2-5.4 [facility] Work Phone: Blood hemoglobin measurement (mass/volume)on 02-15-2022 Hemoglobin (Bld) [Mass/Vol] 14.2 g/dL 12.0-15.0 [facility] Work Phone: Blood lymphocytes/100 leukoc yteson 02-15-2022 Lymphocytes/100 WBC (Bld) 31.5 % 19-41 [facility] Work Phone: [phone] Blood monocytes/100 leukocyt eson 02-15-2022 Monocytes/100 WBC (Bld) 11.7 % 0-10 [facility] Work Phone: Blood platelet mean volumeon 02-15-2022 Platelet mean volume (Bld) [Entitic vol] 10.0 fL 6.2-12.0 [facility] Work Phone: Determination of erythrocyte mean corpuscular volume (MCV)on 02-15-2022 MCV (RBC) [Entitic vol] 96.7 fL 81-99 [facility] Work Phone: Hematocrit Auto (Bld) [Volum e fraction]on 02-15-2022 Hematocrit (Bld) [Volume fraction] 43.8 % 37-47 [facility] Work Phone: Laboratory - Chemistry and C hemistry - challengeon 02-15-2022 ALP [Catalytic activity/Vol] 59 U/L 45-117 [facility] Work Phone: ALT [Catalytic activity/Vol] 65 U/L 13-56 [facility] Work Phone: CO2 [Moles/Vol] 28.0 mmol/L 21.0-32.0 [facility] Work Phone: Globulin (S) [Mass/Vol] 3.4 g/dL 2.2-4.2 [facility] Work Phone: Urea nitrogen/Creatinine [Mass ratio] 17.2 mg/mg 10-20 [facility] Work Phone: Laboratory - Hematology and Cell countson 02-15-2022 Erythrocyte distribution width (RBC) [Entitic vol] 46.2 fL 35.1-43.9 [facility] Work Phone: Erythrocyte distribution width (RBC) [Ratio] 13.1 % 11.6-14.6 [facility] Work Phone: Immature granulocytes/100 WBC (Bld) 0.900 % 0.0-0.9 [facility] Work Phone: Comment on above: IG% - Immature Granu locytes (promyelocytes, myelocytes and metamyelocytes) > 1% indicates that a LEFT SHIFT is Present. MCH (RBC) [Entitic mass] 31.3 pg 27.0-32.0 [facility] Work Phone: Nucleated RBC/100 WBC (Bld) [Ratio] 0 % 0-5 [facility] Work Phone: MCHC Auto (RBC) [Mass/Vol]on 02-15-2022 MCHC (RBC) [Mass/Vol] 32.4 g/dL 32-36 [facility] Work Phone: No Panel Informationon 02-15 Estimated GFR (MDRD) Amer 84 mL/min >60 [facility] Work Phone: Comment on above: GFR Calc Estimated GFR (MDRD) Non-Af Amer 69 mL/min >60 [facility] Work Phone: Comment on above: Non- GFR Calc Platelets bldon 02-15-2022 Platelets (Bld) [#/Vol] 247 10*3/uL 150-450 [facility] Work Phone: Serum or plasma albumin shadia urement (mass/volume)on 02-15-2022 Albumin [Mass/Vol] 3.7 g/dL 3.2-5.0 [facility] Work Phone: Serum or plasma albumin/glob ulin mass ratioon 02-15-2022 Albumin/Globulin [Mass ratio] 1.1 {ratio} 0.9-2.4 [facility] Work Phone: Serum or plasma calcium shadia urement (mass/volume)on 02-15-2022 Calcium [Mass/Vol] 9.1 mg/dL 8.5-10.1 [facility] Work Phone: Serum or plasma creatinine m easurement (mass/volume)on 02-15-2022 Creatinine [Mass/Vol] 0.87 mg/dL 0.55-1.02 [facility] Work Phone: Comment on above: The validity of the calculated GFR & GFRAA in patients over 70 years has not been determined. Clinical correlation is essential. Serum or plasma urea nitroge n measurement (mass/volume)on 02-15-2022 Urea nitrogen [Mass/Vol] 15 mg/dL 7-18 [facility] Work Phone: Thin prep Papanicolaou smear with manual screeningon 02-15-2022 Thin prep Papanicolaou smear with manual screening 31 U/L 15-37 [facility] Work Phone: Thin prep Papanicolaou smear with manual screening 8 5-15 [facility] Work Phone: Absolute lymphocyte counton 11-16-2021 Lymphocytes Auto (Unsp spec) [#/Vol] 2.51 10*3/uL 0.83-4.51 [facility] Work Phone: Basophil percentageon 2021 Basophils/100 WBC (Bld) 1.2 % 0-1 [facility] Work Phone: Bilirubin [Mass/Vol] 0.30 mg/dL 0.20-1.00 [facility] Work Phone: Comment on above: For patients on eltr ombopag therapy, use of Dimension [place] TBIL is not recommended. Chloride [Moles/Vol] 104 mmol/L 98-107 [facility] Work Phone: Eosinophils/100 WBC (Bld) 2.9 % 0-5 [facility] Work Phone: Glucose [Mass/Vol] 91 mg/dL 74-106 [facility] Work Phone: Neutrophils (Bld) [#/Vol] 3.6 10*3/uL 2.0-7.7 [facility] Work Phone: Neutrophils/100 WBC (Bld) 49.9 % 47-70 [facility] Work Phone: Potassium [Moles/Vol] 4.2 mmol/L 3.5-5.1 [facility] Work Phone: Protein [Mass/Vol] 7.4 g/dL 6.4-8.2 [facility] Work Phone: Sodium [Moles/Vol] 137 mmol/L 136-145 [facility] Work Phone: WBC (Bld) [#/Vol] 7.3 10*3/uL 4.4-11.0 [facility] Work Phone: Blood erythrocytes count (nu mber/volume)on 11-16-2021 RBC (Bld) [#/Vol] 4.51 10*6/uL 4.2-5.4 [facility] Work Phone: Blood hemoglobin measurement (mass/volume)on 11-16-2021 Hemoglobin (Bld) [Mass/Vol] 14.2 g/dL 12.0-15.0 [facility] Work Phone: Blood lymphocytes/100 leukoc yteson 11-16-2021 Lymphocytes/100 WBC (Bld) 34.5 % 19-41 [facility] Work Phone: Blood monocytes/100 leukocyt eson 11-16-2021 Monocytes/100 WBC (Bld) 10.5 % 0-10 [facility] Work Phone: Blood platelet mean volumeon 11-16-2021 Platelet mean volume (Bld) [Entitic vol] 10.3 fL 6.2-12.0 [facility] Work Phone: Determination of erythrocyte mean corpuscular volume (MCV)on 11-16-2021 MCV (RBC) [Entitic vol] 96.2 fL 81-99 [facility] Work Phone: Hematocrit Auto (Bld) [Volum e fraction]on 11-16-2021 Hematocrit (Bld) [Volume fraction] 43.4 % 37-47 [facility] Work Phone: Laboratory - Chemistry and C hemistry - challengeon 11-16-2021 ALP [Catalytic activity/Vol] 69 U/L 45-117 [facility] Work Phone: ALT [Catalytic activity/Vol] 57 U/L 13-56 [facility] Work Phone: CO2 [Moles/Vol] 29.0 mmol/L 21.0-32.0 [facility] Work Phone: Globulin (S) [Mass/Vol] 3.7 g/dL 2.2-4.2 [facility] Work Phone: Urea nitrogen/Creatinine [Mass ratio] 21.4 mg/mg 10-20 [facility] Work Phone: Laboratory - Hematology and Cell countson 11-16-2021 Erythrocyte distribution width (RBC) [Entitic vol] 45.1 fL 35.1-43.9 [facility] Work Phone: Erythrocyte distribution width (RBC) [Ratio] 13.0 % 11.6-14.6 [facility] Work Phone: Immature granulocytes/100 WBC (Bld) 1.000 % 0.0-0.9 [facility] Work Phone: Comment on above: IG% - Immature Granu locytes (promyelocytes, myelocytes and metamyelocytes) > 1% indicates that a LEFT SHIFT is Present. MCH (RBC) [Entitic mass] 31.5 pg 27.0-32.0 [facility] Work Phone: Nucleated RBC/100 WBC (Bld) [Ratio] 0 % 0-5 [facility] Work Phone: MCHC Auto (RBC) [Mass/Vol]on 11-16-2021 MCHC (RBC) [Mass/Vol] 32.7 g/dL 32-36 [facility] Work Phone: No Panel Informationon 11-16 Estimated GFR (MDRD) Amer 93 mL/min >60 [facility] Work Phone: Comment on above: GFR Calc Estimated GFR (MDRD) Non-Af Amer 77 mL/min >60 [facility] Work Phone: Comment on above: Non- GFR Calc Platelets bldon 11-16-2021 Platelets (Bld) [#/Vol] 261 10*3/uL 150-450 [facility] Work Phone: Serum or plasma albumin shadia urement (mass/volume)on 11-16-2021 Albumin [Mass/Vol] 3.7 g/dL 3.2-5.0 [facility] Work Phone: Serum or plasma albumin/glob ulin mass ratioon 11-16-2021 Albumin/Globulin [Mass ratio] 1.0 {ratio} 0.9-2.4 [facility] Work Phone: Serum or plasma calcium shadia urement (mass/volume)on 11-16-2021 Calcium [Mass/Vol] 9.2 mg/dL 8.5-10.1 [facility] Work Phone: Serum or plasma creatinine m easurement (mass/volume)on 11-16-2021 Creatinine [Mass/Vol] 0.79 mg/dL 0.55-1.02 [facility] Work Phone: Comment on above: The validity of the calculated GFR & GFRAA in patients over 70 years has not been determined. Clinical correlation is essential. Serum or plasma urea nitroge n measurement (mass/volume)on 11-16-2021 Urea nitrogen [Mass/Vol] 17 mg/dL 7-18 [facility] Work Phone: Thin prep Papanicolaou smear with manual screeningon 11-16-2021 Thin prep Papanicolaou smear with manual screening 30 U/L 15-37 [facility] Work Phone: Thin prep Papanicolaou smear with manual screening 4 5-15 [facility] Work Phone: Glucose,Bedsideon 10-12-2018 Glucose mass conc 130 mg/dL High 70-100 [facility] Comment on above: Result Comment: Test performed by glucose meter. Results may be 10%-15% lowerthan serum/plasma values. (CLIA ID [id number]) Performed By: #### B GLU ####[id number] [place] [address] Glucose,Bedsideon 09-28-2018 Glucose mass conc 125 mg/dL High 70-100 [facility] Comment on above: Result Comment: Test performed by glucose meter. Results may be 10%-15% lowerthan serum/plasma values. (CLIA ID [id number]) Performed By: #### B GLU ####[email or web address] [place] [address] Vital Signs Date Time Vital Sign Value Performing Clinician Facility 06-28-2025 15:07-0400 Body mass index (BMI) [Ratio] 43.73 kg/m2 Gregory Nino MD Work Phone: [facility] 06-28-2025 15:07-0400 Body temperature 98.29 [degF] Gregory Nino MD Work Phone: [facility] 06-28-2025 15:07-0400 Body weight 103.7 kg Gregory Nino MD Work Phone: [facility] 06-28-2025 15:07-0400 Diastolic blood pressure 82 mm[Hg] Gregory Nino MD Work Phone: [facility] 06-28-2025 15:07-0400 Heart rate 94 /min Gregory Nino MD Work Phone: [facility] 06-28-2025 15:07-0400 Respiratory rate 18 /min Gregory Nino MD Work Phone: [facility] 06-28-2025 15:07-0400 SaO2% (BldA) [Mass fraction] 99 % Gregory Nino MD Work Phone: [facility] 06-28-2025 15:07-0400 Systolic blood pressure 136 mm[Hg] Gregory Nino MD Work Phone: [facility] 06-27-2025 12:10-0400 Body height 154 cm Vanessa KEARNEY-C Work Phone: [facility] 06-27-2025 12:10-0400 Body mass index (BMI) [Ratio] 43.8 kg/m2 Vanessa Berg PA-C Work Phone: [facility] 06-27-2025 12:10-0400 Body temperature 97.3 [degF] Vanessa Berg PA-C Work Phone: [facility] 06-27-2025 12:10-0400 Body weight 103.87 kg Vanessa Berg PA-C Work Phone: [facility] 06-27-2025 12:10-0400 Diastolic blood pressure 76 mm[Hg] Vanessa Berg PA-C Work Phone: [facility] 06-27-2025 12:10-0400 Heart rate 75 /min Vanessa Berg PA-C Work Phone: [facility] 06-27-2025 12:10-0400 Respiratory rate 18 /min Vanessa Berg PA-C Work Phone: [facility] 06-27-2025 12:10-0400 SaO2% (BldA) [Mass fraction] 95 % Vanessa Berg PA-C Work Phone: [facility] 06-27-2025 12:10-0400 Systolic blood pressure 110 mm[Hg] Vanessa Berg PA-C Work Phone: [facility] 06-23-2025 12:22-0400 Body mass index (BMI) [Ratio] 42.58 kg/m2 Laurent Rose MOTORCYCLE ENGINE ASSEMBLER.CIRCULAR KNIFE CUTTER MACHINE Work Phone: [facility] 06-23-2025 12:22-0400 Body temperature 98.71 [degF] Laurent Pierrelegeal MOTORCYCLE ENGINE ASSEMBLER.CIRCULAR KNIFE CUTTER MACHINE Work Phone: [facility] 06-23-2025 12:22-0400 Body weight 103.9 kg Laurent Rose MOTORCYCLE ENGINE ASSEMBLER.CIRCULAR KNIFE CUTTER MACHINE Work Phone: [facility] 06-23-2025 12:22-0400 Diastolic blood pressure 66 mm[Hg] Laurent Rose MOTORCYCLE ENGINE ASSEMBLER.CIRCULAR KNIFE CUTTER MACHINE Work Phone: [facility] 06-23-2025 12:22-0400 Heart rate 86 /min Laurent Pendlegael MOTORCYCLE ENGINE ASSEMBLER.CIRCULAR KNIFE CUTTER MACHINE Work Phone: [facility] 06-23-2025 12:22-0400 Respiratory rate 18 /min Laurent Rose MOTORCYCLE ENGINE ASSEMBLER.CIRCULAR KNIFE CUTTER MACHINE Work Phone: [facility] 06-23-2025 12:22-0400 SaO2% (BldA) [Mass fraction] 94 % Laurent Rose MOTORCYCLE ENGINE ASSEMBLER.CIRCULAR KNIFE CUTTER MACHINE Work Phone: [facility] 06-23-2025 12:22-0400 Systolic blood pressure 124 mm[Hg] Laurent Pendlegael MOTORCYCLE ENGINE ASSEMBLER.CIRCULAR KNIFE CUTTER MACHINE Work Phone: [facility] 05-28-2025 17:10-0400 Body mass index (BMI) [Ratio] 43.28 kg/m2 Gregory Rincon PA-C Work Phone: [facility] 05-28-2025 17:10-0400 Body temperature 98.49 [degF] Gregory Dcley PA-C Work Phone: [facility] 05-28-2025 17:10-0400 Body weight 105.6 kg Gregory Rincon PA-C Work Phone: [facility] 05-28-2025 17:10-0400 Diastolic blood pressure 88 mm[Hg] Gregory Dcley PA-C Work Phone: [facility] 05-28-2025 17:10-0400 Heart rate 110 /min Gregory Dcley PA-C Work Phone: [facility] 05-28-2025 17:10-0400 Respiratory rate 20 /min Gregory Dcley PA-C Work Phone: [facility] 05-28-2025 17:10-0400 SaO2% (BldA) [Mass fraction] 95 % Gregory Dcley PA-C Work Phone: [facility] 05-28-2025 17:10-0400 Systolic blood pressure 168 mm[Hg] Gregory Rincon PA-C Work Phone: [facility] 02-16-2025 09:39-0400 Body mass index (BMI) [Ratio] 42.21 kg/m2 Madhav Moomaw MOTORCYCLE ENGINE ASSEMBLER.CIRCULAR KNIFE CUTTER MACHINE Work Phone: [facility] 02-16-2025 09:39-0400 Body temperature 97 [degF] Madhav Moomaw MOTORCYCLE ENGINE ASSEMBLER.CIRCULAR KNIFE CUTTER MACHINE Work Phone: [facility] 02-16-2025 09:39-0400 Body weight 103 kg Madhav Moomaw MOTORCYCLE ENGINE ASSEMBLER.CIRCULAR KNIFE CUTTER MACHINE Work Phone: [facility] 02-16-2025 09:39-0400 Diastolic blood pressure 75 mm[Hg] Madhav Moomaw MOTORCYCLE ENGINE ASSEMBLER.CIRCULAR KNIFE CUTTER MACHINE Work Phone: [facility] 02-16-2025 09:39-0400 Heart rate 78 /min Madhav Moomaw MOTORCYCLE ENGINE ASSEMBLER.CIRCULAR KNIFE CUTTER MACHINE Work Phone: [facility] 02-16-2025 09:39-0400 Respiratory rate 18 /min Madhav Moomaw MOTORCYCLE ENGINE ASSEMBLER.CIRCULAR KNIFE CUTTER MACHINE Work Phone: [facility] 02-16-2025 09:39-0400 SaO2% (BldA) [Mass fraction] 98 % Madhav Moomaw MOTORCYCLE ENGINE ASSEMBLER.CIRCULAR KNIFE CUTTER MACHINE Work Phone: [facility] 02-16-2025 09:39-0400 Systolic blood pressure 118 mm[Hg] Madhav Moomaw MOTORCYCLE ENGINE ASSEMBLER.CIRCULAR KNIFE CUTTER MACHINE Work Phone: [facility] 02-03-2025 11:22-0400 Body mass index (BMI) [Ratio] 42.46 kg/m2 Gregory Nino MD Work Phone: [facility] 02-03-2025 11:22-0400 Body temperature 98.8 [degF] Gregory Nino MD Work Phone: [facility] 02-03-2025 11:22-0400 Body weight 103.6 kg Gregory Nino MD Work Phone: [facility] 02-03-2025 11:22-0400 Diastolic blood pressure 80 mm[Hg] Gregory Nino MD Work Phone: [facility] 02-03-2025 11:22-0400 Heart rate 92 /min Gregory Nino MD Work Phone: [facility] 02-03-2025 11:22-0400 Respiratory rate 18 /min Gregory Nino MD Work Phone: [facility] 02-03-2025 11:22-0400 SaO2% (BldA) [Mass fraction] 97 % Gregory Nino MD Work Phone: [facility] 02-03-2025 11:22-0400 Systolic blood pressure 134 mm[Hg] Gregory Nino MD Work Phone: [facility] 12-25-2024 12:30-0400 Body mass index (BMI) [Ratio] 41.6 kg/m2 Vanessa KEARNEY-C Work Phone: [facility] 12-25-2024 12:30-0400 Body temperature 98.6 [degF] Vanessa KEARNEY-C Work Phone: [facility] 12-25-2024 12:30-0400 Body weight 101.52 kg Vanessa KEARNEY-C Work Phone: [facility] 12-25-2024 12:30-0400 Diastolic blood pressure 74 mm[Hg] Vanessa KEARNEY-C Work Phone: [facility] 12-25-2024 12:30-0400 Heart rate 93 /min Vanessa KEARNEY-C Work Phone: [facility] 12-25-2024 12:30-0400 SaO2% (BldA) [Mass fraction] 96 % Vanessa KEARNEY-C Work Phone: [facility] 12-25-2024 12:30-0400 Systolic blood pressure 122 mm[Hg] Vanessa KEARNEY-C Work Phone: [facility] 06-26-2024 12:56-0400 Body height 156.2 cm Laurent Pagan MD Work Phone: [facility] 06-26-2024 12:56-0400 Body mass index (BMI) [Ratio] 42.75 kg/m2 Laurent Pagan MD Work Phone: [facility] 06-26-2024 12:56-0400 Body weight 104.33 kg Laurent Pagan MD Work Phone: [facility] 06-26-2024 12:56-0400 Diastolic blood pressure 70 mm[Hg] Laurent Pagan MD Work Phone: [facility] 06-26-2024 12:56-0400 Heart rate 84 /min Laurent Pagan MD Work Phone: [facility] 06-26-2024 12:56-0400 Systolic blood pressure 116 mm[Hg] Laurent Pagan MD Work Phone: [facility] 05-15-2024 13:31-0400 Body mass index (BMI) [Ratio] 44.37 kg/m2 Vanessa Berg PA-C Work Phone: [facility] 05-15-2024 13:31-0400 Body temperature 98.49 [degF] Vanessa Berg PA-C Work Phone: [facility] 05-15-2024 13:31-0400 Body weight 104.78 kg Vanessa Berg PA-C Work Phone: [facility] 05-15-2024 13:31-0400 Diastolic blood pressure 70 mm[Hg] Vanessa Berg PA-C Work Phone: [facility] 05-15-2024 13:31-0400 Heart rate 90 /min Vanessa Berg PA-C Work Phone: [facility] 05-15-2024 13:31-0400 Respiratory rate 18 /min Vanessa Berg PA-C Work Phone: [facility] 05-15-2024 13:31-0400 SaO2% (BldA) [Mass fraction] 95 % Vanessa Berg PA-C Work Phone: [facility] 05-15-2024 13:31-0400 Systolic blood pressure 110 mm[Hg] Vanessa Berg PA-C Work Phone: [facility] 05-07-2024 09:44-0400 Body mass index (BMI) [Ratio] 45.31 kg/m2 Cass Espitia APRN.CIRCULAR KNIFE CUTTER MACHINE Work Phone: [facility] 05-07-2024 09:44-0400 Body temperature 98.1 [degF] Cass Espitia APRN.CIRCULAR KNIFE CUTTER MACHINE Work Phone: [facility] 05-07-2024 09:44-0400 Body weight 107 kg Cass Espitia APRN.CIRCULAR KNIFE CUTTER MACHINE Work Phone: [facility] 05-07-2024 09:44-0400 Diastolic blood pressure 79 mm[Hg] Cass Espitia APRN.CIRCULAR KNIFE CUTTER MACHINE Work Phone: [facility] 05-07-2024 09:44-0400 Heart rate 91 /min Cass Espitia APRN.CIRCULAR KNIFE CUTTER MACHINE Work Phone: [facility] 05-07-2024 09:44-0400 Respiratory rate 20 /min Cass Espitia APRN.CIRCULAR KNIFE CUTTER MACHINE Work Phone: [facility] 05-07-2024 09:44-0400 SaO2% (BldA) [Mass fraction] 96 % Cass Espitia APRN.CIRCULAR KNIFE CUTTER MACHINE Work Phone: [facility] 05-07-2024 09:44-0400 Systolic blood pressure 119 mm[Hg] Cass Espitia APRN.CIRCULAR KNIFE CUTTER MACHINE Work Phone: [facility] 12-27-2023 10:43-0400 Body temperature 98.1 [degF] Vanessa Berg PA-C Work Phone: [facility] 12-27-2023 10:43-0400 Body weight 105.87 kg Vanessa Berg PA-C Work Phone: [facility] 12-27-2023 10:43-0400 Diastolic blood pressure 66 mm[Hg] Vanessa Berg PA-C Work Phone: [facility] 12-27-2023 10:43-0400 Heart rate 80 /min Vanessa Berg PA-C Work Phone: [facility] 12-27-2023 10:43-0400 Respiratory rate 18 /min Vanessa Berg PA-C Work Phone: [facility] 12-27-2023 10:43-0400 Systolic blood pressure 124 mm[Hg] Vanessa Berg PA-C Work Phone: [facility] 08-14-2023 15:22-0400 Body weight 103.42 kg Rossy Pacheco APRN.CIRCULAR KNIFE CUTTER MACHINE Work Phone: [facility] 08-14-2023 15:22-0400 Diastolic blood pressure 70 mm[Hg] Rossy Pacheco APRN.CIRCULAR KNIFE CUTTER MACHINE Work Phone: [facility] 08-14-2023 15:22-0400 Heart rate 80 /min Rossy Pacheco MOTORCYCLE ENGINE ASSEMBLER.CIRCULAR KNIFE CUTTER MACHINE Work Phone: [facility] 08-14-2023 15:22-0400 Respiratory rate 16 /min Rossy Pacheco MOTORCYCLE ENGINE ASSEMBLER.CIRCULAR KNIFE CUTTER MACHINE Work Phone: [facility] 08-14-2023 15:22-0400 Systolic blood pressure 112 mm[Hg] Rossy Pacheco MOTORCYCLE ENGINE ASSEMBLER.CIRCULAR KNIFE CUTTER MACHINE Work Phone: [facility] 07-31-2023 20:12-0400 Respiratory rate 16 /min [facility] 07-31-2023 16:49-0400 Body height 157.48 cm [facility] 07-31-2023 16:49-0400 Body mass index (BMI) [Ratio] 41.7 kg/m2 [facility] 07-31-2023 16:49-0400 Body temperature 97.2 [degF] [facility] 07-31-2023 16:49-0400 Body weight 103.41 kg [facility] 07-31-2023 16:49-0400 Diastolic blood pressure 94 mm[Hg] [facility] 07-31-2023 16:49-0400 Heart rate 104 /min [facility] 07-31-2023 16:49-0400 SaO2% (BldA) [Mass fraction] 98 % [facility] 07-31-2023 16:49-0400 Systolic blood pressure 141 mm[Hg] [facility] 07-31-2023 11:50-0400 Body temperature 97.59 [degF] Laurent Rose APRN.CIRCULAR KNIFE CUTTER MACHINE Work Phone: [facility] 07-31-2023 11:50-0400 Body weight 103.51 kg Laurent Rose APRN.CIRCULAR KNIFE CUTTER MACHINE Work Phone: [facility] 07-31-2023 11:50-0400 Diastolic blood pressure 74 mm[Hg] Laurent Rose APRN.CIRCULAR KNIFE CUTTER MACHINE Work Phone: [facility] 07-31-2023 11:50-0400 Heart rate 89 /min Laurent Rose MOTORCYCLE ENGINE ASSEMBLER.CIRCULAR KNIFE CUTTER MACHINE Work Phone: [facility] 07-31-2023 11:50-0400 Respiratory rate 18 /min Laurent Rose MOTORCYCLE ENGINE ASSEMBLER.CIRCULAR KNIFE CUTTER MACHINE Work Phone: [facility] 07-31-2023 11:50-0400 SaO2% (BldA) [Mass fraction] 96 % Laurent Rose MOTORCYCLE ENGINE ASSEMBLER.CIRCULAR KNIFE CUTTER MACHINE Work Phone: [facility] 07-31-2023 11:50-0400 Systolic blood pressure 113 mm[Hg] Laurent Rose MOTORCYCLE ENGINE ASSEMBLER.CIRCULAR KNIFE CUTTER MACHINE Work Phone: [facility] 06-26-2023 14:17-0400 Body height 153.7 cm Laurent Pagan MD Work Phone: [facility] 06-26-2023 14:17-0400 Body weight 102.97 kg Laurent Pagan MD Work Phone: [facility] 06-26-2023 14:17-0400 Diastolic blood pressure 74 mm[Hg] Laurent Pagan MD Work Phone: [facility] 06-26-2023 14:17-0400 Heart rate 82 /min Laurent Pagan MD Work Phone: [facility] 06-26-2023 14:17-0400 Respiratory rate 16 /min Laurent Pagan MD Work Phone: [facility] 06-26-2023 14:17-0400 Systolic blood pressure 124 mm[Hg] Laurent Pagan MD Work Phone: [facility] 01-04-2023 08:58-0400 Body temperature 97.7 [degF] Adelita Fox MOTORCYCLE ENGINE ASSEMBLER.CIRCULAR KNIFE CUTTER MACHINE Work Phone: [facility] 01-04-2023 08:58-0400 Body weight 103.69 kg Adelita Fox MOTORCYCLE ENGINE ASSEMBLER.CIRCULAR KNIFE CUTTER MACHINE Work Phone: [facility] 01-04-2023 08:58-0400 Diastolic blood pressure 80 mm[Hg] Adelita Fox MOTORCYCLE ENGINE ASSEMBLER.CIRCULAR KNIFE CUTTER MACHINE Work Phone: [facility] 01-04-2023 08:58-0400 Heart rate 80 /min Adelita Callow MOTORCYCLE ENGINE ASSEMBLER.CIRCULAR KNIFE CUTTER MACHINE Work Phone: [facility] 01-04-2023 08:58-0400 Respiratory rate 18 /min Adelita Callow MOTORCYCLE ENGINE ASSEMBLER.CIRCULAR KNIFE CUTTER MACHINE Work Phone: [facility] 01-04-2023 08:58-0400 SaO2% (BldA) [Mass fraction] 97 % Adelita Callow MOTORCYCLE ENGINE ASSEMBLER.CIRCULAR KNIFE CUTTER MACHINE Work Phone: [facility] 01-04-2023 08:58-0400 Systolic blood pressure 122 mm[Hg] Adelita Callow MOTORCYCLE ENGINE ASSEMBLER.CIRCULAR KNIFE CUTTER MACHINE Work Phone: [facility] 01-03-2023 08:12-0400 Body weight 103.87 kg Vanessa Berg PA-C Work Phone: [facility] 01-03-2023 08:12-0400 Diastolic blood pressure 78 mm[Hg] Vanessa Berg PA-C Work Phone: [facility] 01-03-2023 08:12-0400 Heart rate 85 /min Vanessa Berg PA-C Work Phone: [facility] 01-03-2023 08:12-0400 Respiratory rate 18 /min Vanessa Berg PA-C Work Phone: [facility] 01-03-2023 08:12-0400 SaO2% (BldA) [Mass fraction] 95 % Vanessa Berg PA-C Work Phone: [facility] 01-03-2023 08:12-0400 Systolic blood pressure 124 mm[Hg] Vanessa Berg PA-C Work Phone: [facility] 07-06-2022 08:24-0400 Body height 156.2 cm Laurent Pagan MD Work Phone: [facility] 07-06-2022 08:24-0400 Body weight 101.61 kg Laurent Pagan MD Work Phone: [facility] 07-06-2022 08:24-0400 Diastolic blood pressure 80 mm[Hg] Laurent Pagan MD Work Phone: [facility] 07-06-2022 08:24-0400 Heart rate 72 /min Laurent Pagan MD Work Phone: [facility] 07-06-2022 08:24-0400 Respiratory rate 16 /min Laurent Pagan MD Work Phone: [facility] 07-06-2022 08:24-0400 Systolic blood pressure 120 mm[Hg] Laurent Pagan MD Work Phone: [facility] 05-04-2022 17:56-0400 Body temperature 97.2 [degF] Gregory Nino MD Work Phone: [facility] 05-04-2022 17:56-0400 Body weight 104.15 kg Gregory Nino MD Work Phone: [facility] 05-04-2022 17:56-0400 Diastolic blood pressure 78 mm[Hg] Gregory Nino MD Work Phone: [facility] 05-04-2022 17:56-0400 Heart rate 82 /min Gregory Nino MD Work Phone: [facility] 05-04-2022 17:56-0400 Respiratory rate 21 /min Gregory Nino MD Work Phone: [facility] 05-04-2022 17:56-0400 SaO2% (BldA) [Mass fraction] 98 % Gregory Nino MD Work Phone: [facility] 05-04-2022 17:56-0400 Systolic blood pressure 120 mm[Hg] Gregory Nino MD Work Phone: [facility] 12-14-2021 00:08-0500 Body mass index (BMI) [Ratio] 22.8 kg/m2 [facility] Work Phone: 12-13-2021 23:08-0500 Body mass index (BMI) [Ratio] 22.8 kg/m2 [facility] Work Phone: 09-14-2021 23:04-0500 Body mass index (BMI) [Ratio] 22.8 kg/m2 [facility] Work Phone: Encounters Encounter Date Encounter Type Care Provider Facility Start: 08-19-2025 ambulatory Laurent Pagan Facility :[facility] Start: 07-15-2025 End: 07-15-[address] Laurent Pagan MD Work Phone: -Laboratory Start: 07-15-2025 End: 07-15-[address] Sabrina Moran MD -Laboratory Work Phone: Start: 07-15-2025 End: 07-15-2025 ambulatory Sabrina Moran Facility:[facility] Start: 07-11-2025 End: 07-11-2025 ambulatory VANESSA BERG Facility:[facility] Start: 07-09-2025 End: 07-09-2025 ambulatory VANESSA BERG Facility:[facility] Start: 07-05-2025 End: 07-05-2025 ambulatory VANESSA BERG Facility:[facility] Start: 06-30-2025 End: 06-30-2025 Follow-up encounter Vanessa Berg PA-C Work Phone: [facility] Start: 06-28-2025 End: 06-28-2025 Office outpatient visit 25 minutes Gregory Nino MD Work Phone: [facility] [place] Comment on above: Acute pain of left s houlder (Primary Dx); Rheumatoid arthritis involving multiple sites, unspecified whether rheumatoid factor present (HCC) Start: 06-28-2025 End: 06-28-2025 ambulatory LAURENT PAGAN Facility:[facility] Start: 06-27-2025 End: 06-27-2025 ambulatory VANESSA BERG Facility:[facility] Start: 06-27-2025 End: 06-27-2025 ambulatory VANESSA BERG Facility:[facility] Start: 06-27-2025 End: 06-27-2025 Patient encounter procedure Vanessa Berg PA-C Work Phone: [facility] [place] Comment on above: Medicare annual well ness visit, initial (Primary Dx); Advance directive discussed with patient; Essential hypertension; Mixed hyperlipidemia; Controlled type 2 diabetes mellitus without complication, without long-term current use of insulin (HCC); Fibromyalgia; Pancreatic cyst (HCC); Rheumatoid arthritis involving multiple sites, unspecified whether rheumatoid factor present (HCC); Encounter for Medicare annual wellness exam; Obesity, Class III, BMI 40-49.9 (morbid obesity) (HCC); Hemangioma of liver; Well woman exam; Microscopic hematuria; Type 2 diabetes mellitus with diabetic neuropathy, without long-term current use of insulin (HCC) Start: 06-23-2025 End: 06-23-[address] Laurent Pagan MD Work Phone: -Laboratory Start: 06-23-2025 End: 06-23-[address] Sabrina Moran MD -Laboratory Work Phone: Start: 06-23-2025 End: 06-23-2025 Chart abstracting Sara Arriaga MA [facility] [place] Comment on above: ext document (labs) Start: 06-23-2025 End: 06-23-2025 Subsequent hospital visit by physician Xr [facility] [place] Work Phone: Radiology Comment on above: Acute cough [R05.1] Start: 06-23-2025 End: 06-23-2025 Office outpatient visit 25 minutes Laurent Rose APRN.CNP Work Phone: [facility] [place] Comment on above: Acute cough (Primary Dx); Viral illness Start: 06-23-2025 End: 06-23-2025 ambulatory VANESSA BERG Facility:[facility] Start: 06-23-2025 End: 06-23-2025 ambulatory VANESSA BERG Facility:[facility] Start: 06-23-2025 End: 06-23-2025 ambulatory Laurent Pagan Facility:[facility] Start: 06-12-2025 Registered Recurring Kary KEARNEY -Physical Therapy Work Phone: Start: 06-10-2025 End: 06-10-2025 ambulatory Laurent Pagan MD Work Phone: [facility] Start: 06-10-2025 End: 06-10-2025 Patient encounter procedure Laurent Pagan MD Work Phone: [facility] Comment on above: Population Health Na vigation Outreach ([employer] [place]/) Start: 05-28-2025 End: 05-28-2025 Subsequent hospital visit by physician Xr [facility] Work Phone: Radiology Comment on above: Chronic pain of left knee [M25.562, G89.29] Start: 05-28-2025 End: 05-28-2025 Office outpatient visit 25 minutes Gregory Rincon PA-C Work Phone: [facility] [place] Comment on above: Chronic pain of left knee (Primary Dx) Start: 05-28-2025 End: 05-28-2025 ambulatory LAURENT PAGAN Facility:[facility] Start: 03-27-2025 End: 03-27-2025 Chart abstracting Laurent Pagan MD Work Phone: [facility] Comment on above: Outside Upwl-Lmu-JWB Ordered Start: 03-26-2025 End: 03-26-[address] Laurent Pagan MD Work Phone: [facility] Work Phone: Start: 03-26-2025 End: 03-26-[address] Sabrina Moran MD -Laboratory Work Phone: Start: 03-26-2025 End: 03-26-2025 ambulatory Laurent Pagan Facility:[facility] Start: 02-16-2025 End: 02-16-2025 Patient encounter procedure Madhav Iglesias APRN.CIRCULAR KNIFE CUTTER MACHINE Work Phone: [facility] Comment on above: Impacted cerumen of right ear (Primary Dx) Start: 02-16-2025 End: 02-16-2025 ambulatory LAURENT PAGAN Facility:[facility] Start: 02-03-2025 End: 02-03-2025 Office outpatient visit 25 minutes Gregory Nino MD Work Phone: [facility] Comment on above: Acute pain of right shoulder (Primary Dx); Bursitis of right shoulder Start: 02-03-2025 End: 02-03-2025 Subsequent hospital visit by physician Xr [facility] [place] Work Phone: Radiology Comment on above: Acute pain of right shoulder [M25.511] Start: 02-03-2025 End: 02-03-2025 ambulatory LAURENT PAGAN Facility:[facility] Start: 01-17-2025 End: 01-22-2025 Telephone encounter Lokesh Espitia MA [facility] [place] Comment on above: Forms (Employment ph ysical form ) Start: 01-10-2025 End: 01-10-2025 ambulatory Laurent Pagan MD Work Phone: [facility] [place] Comment on above: Physical Start: 01-01-2025 End: 01-01-2025 Chart abstracting Lokesh Espitia MA [facility] [place] Comment on above: Consult (Outside Oph thalmology /) Start: 12-30-2024 End: 12-30-2024 Follow-up encounter Vanessa Berg PA-C Work Phone: [facility] [place] Comment on above: Results Start: 12-27-2024 End: 12-27-2024 ambulatory VANESSA BERG Facility:[facility] Start: 12-27-2024 End: 12-27-2024 Subsequent hospital visit by physician Screen Mammo [facility] Comment on above: Encounter for screen ing mammogram for breast cancer [Z12.31] Start: 12-25-2024 End: 12-25-2024 Telephone encounter Vanessa Berg PA-C Work Phone: [facility] [place] Comment on above: Results Start: 12-25-2024 End: 12-25-2024 ambulatory VANESSA BERG Facility:[facility] Start: 12-25-2024 End: 12-25-2024 Office outpatient visit 25 minutes Vanessa Berg PA-C Work Phone: [facility] [place] Comment on above: Controlled type 2 di abetes mellitus without complication, without long-term current use of insulin (HCC) (Primary Dx); Essential hypertension; Mixed hyperlipidemia; Encounter for screening mammogram for breast cancer; Screening for depression; Fibromyalgia; Obesity, Class III, BMI 40-49.9 (morbid obesity) (HCC); Diabetic eye exam (HCC); Rheumatoid arthritis involving multiple sites, unspecified whether rheumatoid factor present (HCC) Start: 12-25-2024 End: 12-25-2024 Ophthalmic examination and evaluation Vanessa Berg PA-C Work Phone: [facility] Start: 12-24-2024 End: 12-24-[address] Laurent Pagan MD Work Phone: [facility] Work Phone: Start: 12-24-2024 End: 12-24-[address] Sabrina Moran MD -Laboratory, [place] Start: 12-24-2024 End: 12-24-2024 ambulatory Laurent Pagan Facility:[facility] Start: 12-21-2024 End: 12-23-2024 ambulatory Vanessa Berg PA-C Work Phone: [facility] Comment on above: Lab work Start: 11-05-2024 End: 11-05-2024 Chart abstracting Laurent Pagan MD Work Phone: [facility] Comment on above: Outside Qkdi-Zgr-DZQ Ordered Start: 11-04-2024 End: 11-04-[address] Sabrina Moran MD -Laboratory, [place] Start: 11-04-2024 End: 11-04-2024 ambulatory Laurent Pagan Facility:[facility] Start: 10-02-2024 End: 10-02-2024 Telephone encounter Laurent Pagan MD Work Phone: [facility] Comment on above: Results Start: 09-27-2024 End: 09-27-2024 ambulatory LAURENT PAGAN Facility:[facility] Start: 09-27-2024 End: 09-27-2024 Subsequent hospital visit by physician Mri Radio [facility] (I-Stat/1.5t) Work Phone: Radiology Comment on above: Pancreatic cyst [K86 .2] Start: 09-18-2024 End: 09-18-2024 Refill Laurent Pagan MD Work Phone: [facility] Comment on above: Refill Request Start: 08-27-2024 End: 08-27-2024 Chart abstracting Laurent Pagan MD Work Phone: [facility] Comment on above: Outside Vhne-Qbx-BOQ Ordered Start: 08-26-2024 End: 08-26-2024 Chart abstracting Laurent Pagan MD Work Phone: [facility] Comment on above: Outside Cvos-Ujt-SAH Ordered Start: 08-23-2024 End: 08-23-2024 Chart abstracting Laurent Pagan MD Work Phone: [facility] Comment on above: Outside Xxvo-Ehf-ITO Ordered Start: 08-22-2024 End: 08-22-2024 Chart abstracting Laurent Pagan MD Work Phone: [facility] Start: 08-21-2024 End: 08-21-2024 ambulatory Laurent Pagan Facility:[facility] Start: 08-08-2024 End: 08-08-2024 Chart abstracting Laurent Pagan MD Work Phone: [facility] Comment on above: Outside Owhi-Llu-FIJ Ordered Start: 06-26-2024 End: 06-26-2024 Ophthalmic examination and evaluation Laurent Pagan MD Work Phone: [facility] Start: 06-26-2024 End: 06-26-2024 Patient encounter procedure Laurent Pagan MD Work Phone: [facility] Comment on above: Well adult exam (Padmini cameron Dx); Controlled type 2 diabetes mellitus without complication, without long-term current use of insulin (HCC); Diabetic eye exam (HCC); Essential hypertension; Mixed hyperlipidemia; Polyarthralgia; Rheumatoid arthritis involving multiple sites, unspecified whether rheumatoid factor present (HCC); Fibromyalgia; Hirsutism; Obesity, Class III, BMI 40-49.9 (morbid obesity) (HCC); Pancreatic cyst; Advance directive discussed with patient Start: 06-26-2024 End: 06-26-2024 Patient encounter status Laurent Pagan MD Work Phone: [facility] Work Phone: Start: 05-22-2024 Chart abstracting Lokesh Espitia MA [facility] [place] Comment on above: Results (Labs /) Start: 05-20-2024 Chart abstracting Laurent malone MD Work Phone: [facility] [place] Comment on above: Outside Imaging Start: 05-15-2024 Telephone encounter Laurent Pagan MD Work Phone: [facility] [place] Comment on above: Appointment Start: 05-15-2024 End: 05-15-2024 Patient encounter procedure Vanessa Berg PA-C Work Phone: [facility] [place] Comment on above: Bronchitis (Primary Dx) Start: 05-07-2024 Telephone encounter Viktoriya KEARNEY Work Phone: [facility] Comment on above: Results Start: 05-07-2024 End: 05-07-2024 Subsequent hospital visit by physician Xr [facility] [place] Work Phone: Radiology Comment on above: Acute cough [R05.1] Start: 05-07-2024 End: 05-07-2024 Patient encounter procedure Cass Espitia APRN.CIRCULAR KNIFE CUTTER MACHINE Work Phone: [facility] Comment on above: Acute cough (Primary Dx); URI, acute Start: 02-29-2024 ambulatory Laurent martinez MD Work Phone: [facility] [place] Comment on above: Current Medication L Ist Refill Request Start: 02-29-2024 E-mail encounter fro m caregiver Laurent Pagan MD Work Phone: [facility] [place] Start: 02-23-2024 Chart abstracting Laurent malone MD Work Phone: [facility] [place] Comment on above: Ext / Labs Start: 02-07-2024 Telephone encounter Vanessa hill PA-C Work Phone: [facility] Comment on above: Results Start: 02-07-2024 End: 02-07-2024 Subsequent hospital visit by physician Diagnostic Mammo [facility] Start: 01-23-2024 Documentation procedure Mammog abelino Coordinator [facility] Start: 01-23-2024 Letter encounter Mammography Coordinator [facility] Department Start: 01-23-2024 Telephone encounter Vanessa hill PA-C Work Phone: [facility] Comment on above: Results Start: 01-23-2024 End: 01-23-2024 Subsequent hospital visit by physician Screen Mammo [facility] Comment on above: Encounter for screen ing mammogram for breast cancer [Z12.31] Start: 01-15-2024 Chart abstracting Lokesh [facility] [place] Start: 01-12-2024 End: 01-12-2024 ambulatory [facility] Work Phone: Start: 01-12-2024 End: 01-12-2024 Patient encounter procedure [facility], [place] Start: 12-28-2023 Telephone encounter Vanessa hill PA-C Work Phone: [facility] Comment on above: Results Start: 12-27-2023 End: 12-27-2023 Patient encounter procedure Vanessa Berg PA-C Work Phone: [facility] Comment on above: Essential hypertensi on (Primary Dx); Mixed hyperlipidemia; Controlled type 2 diabetes mellitus without complication, without long-term current use of insulin (HCC); Obesity, Class III, BMI 40-49.9 (morbid obesity) (HCC); Class 2 obesity due to excess calories without serious comorbidity with body mass index (BMI) of 39.0 to 39.9 in adult; Rheumatoid arthritis involving multiple sites, unspecified whether rheumatoid factor present ([facility]) Start: 12-26-2023 Chart abstracting Laurent malone MD Work Phone: [facility] Start: 11-22-2023 ambulatory Laurent martinez MD Work Phone: Internal Medicine [facility] Start: 10-17-2023 End: 10-17-2023 ambulatory [facility] Work Phone: Start: 10-17-2023 End: 10-17-2023 Patient encounter procedure [facility]-Laboratory, [place] Start: 09-18-2023 Telephone encounter Laurent Pagan MD Work Phone: [facility] Comment on above: Results Start: 09-18-2023 End: 09-18-2023 Subsequent hospital visit by physician Mri Radio [facility] (I-Stat/1.5t) Work Phone: Radiology Comment on above: Liver lesion, right lobe [K76.9] Start: 08-15-2023 Telephone encounter Lokesh Espitia MA [facility] Comment on above: Patient Update Start: 08-14-2023 End: 08-14-2023 Patient encounter procedure Rossy Pacheco APRN.CIRCULAR KNIFE CUTTER MACHINE Work Phone: [facility] Comment on above: Diverticulitis (Prim marie Dx) Start: 07-31-2023 End: 07-31-2023 Emergency department patient visit [facility]Emergency Department Work Phone: Start: 07-31-2023 End: 07-31-2023 Patient encounter procedure Laurent Rose APRN.CIRCULAR KNIFE CUTTER MACHINE Work Phone: [facility] Comment on above: Urinary frequency (P rimary Dx); Left lower quadrant abdominal pain Start: 07-28-2023 End: 07-28-2023 ambulatory [facility] Nurse [place] Work Phone: [facility] Start: 07-17-2023 End: 07-17-2023 Patient encounter procedure [facility] [place] Work Phone: Start: 06-29-2023 Telephone encounter Laurent Pagan MD Work Phone: [facility] Comment on above: Results Start: 06-26-2023 End: 06-26-2023 Ophthalmic examination and evaluation Laurent Pagan MD Work Phone: [facility] Work Phone: Start: 06-26-2023 End: 06-26-2023 Patient encounter procedure [facility] Comment on above: Well adult exam ([facility] cameron Dx); Essential hypertension; Mixed hyperlipidemia; Controlled type 2 diabetes mellitus without complication, without long-term current use of insulin (HCC); Diabetic eye exam (HCC); Polyarthralgia; Rheumatoid arthritis involving multiple sites, unspecified whether rheumatoid factor present (HCC); Obesity, Class III, BMI 40-49.9 (morbid obesity) ([facility]); Hirsutism; Fibromyalgia; Advance directive discussed with patient; right Jess Start: 06-26-2023 End: 06-26-2023 Patient encounter status Laurent Pagan MD Work Phone: [facility] Work Phone: Start: 05-02-2023 Refill Rossy cuevas APRN.CIRCULAR KNIFE CUTTER MACHINE Work Phone: [facility] Comment on above: Refill Request Start: 04-17-2023 End: 04-17-2023 ambulatory [facility] Work Phone: Start: 04-17-2023 End: 04-17-2023 Patient encounter procedure [facility], [place] Start: 01-30-2023 End: 01-30-2023 Patient encounter procedure [facility] [place] Start: 01-05-2023 Telephone encounter Viktoriya KEARNEY Work Phone: [facility] Comment on above: Results Start: 01-04-2023 Telephone encounter Vanessa hill PA-C Work Phone: [facility] Comment on above: Results Start: 01-04-2023 End: 01-04-2023 Patient encounter procedure Adelita Fox APRN.CIRCULAR KNIFE CUTTER MACHINE Work Phone: [facility] Comment on above: Sore throat (Primary Dx) Start: 01-03-2023 End: 01-03-2023 Patient encounter procedure Vanessa Berg PA-C [facility] Phone[facility] Comment on above: Controlled type 2 di abetes mellitus without complication, without long-term current use of insulin (HCC) (Primary Dx); Mixed hyperlipidemia; Essential hypertension; Rheumatoid arthritis involving multiple sites, unspecified whether rheumatoid factor present (HCC); Class 2 obesity due to excess calories without serious comorbidity with body mass index (BMI) of 39.0 to 39.9 in adult; Encounter for immunization Start: 12-22-2022 Chart abstracting Laurent malone MD Work Phone: [facility] Comment on above: Diabetic Eye Exam Start: 12-07-2022 ambulatory Laurent martinez MD Work Phone: [facility] Start: 11-14-2022 Refill Laurent martinez MD Work Phone: [facility] Comment on above: Refill Request Start: 11-07-2022 End: 11-07-2022 ambulatory [facility] Work Phone: Start: 11-07-2022 End: 11-07-2022 Patient encounter procedure [facility] [place] Start: 10-06-2022 End: 10-06-2022 Nursing evaluation of patient and report Mi Nurse Work Phone: [facility] Comment on above: Need for influenza v accination (Primary Dx); Need for vaccination Start: 09-23-2022 End: 09-23-2022 ambulatory [facility] Work Phone: Start: 09-23-2022 End: 09-23-2022 Patient encounter procedure [facility] [place] Start: 09-19-2022 Telephone encounter Laurent Pagan MD Work Phone: [facility] Comment on above: Orders Start: 07-06-2022 End: 07-06-2022 Ophthalmic examination and evaluation Laurent Pagan MD Work Phone: [facility] Start: 07-06-2022 End: 07-06-2022 Patient encounter procedure Laurent Pagan MD Work Phone: [facility] Comment on above: Well adult exam ([facility] cameron Dx); Controlled type 2 diabetes mellitus without complication, without long-term current use of insulin (HCC); Diabetic eye exam (HCC); Mixed hyperlipidemia; Essential hypertension; Polyarthralgia; Class 2 obesity due to excess calories without serious comorbidity with body mass index (BMI) of 39.0 to 39.9 in adult; Rheumatoid arthritis involving multiple sites, unspecified whether rheumatoid factor present (HCC); Advance directive discussed with patient; Need for vaccination Start: 07-06-2022 End: 07-06-2022 Patient encounter status Laurent Pagan MD Work Phone: [facility] Start: 06-29-2022 Telephone encounter Laurent Pagan MD Work Phone: [facility] Comment on above: Orders (Labs) Start: 05-25-2022 End: 05-25-2022 Patient encounter procedure [facility] Start: 05-04-2022 End: 05-04-2022 Patient encounter procedure Gregory Nino MD Work Phone: [facility] Comment on above: Hordeolum internum l eft upper eyelid (Primary Dx) Start: 03-17-2022 End: 03-17-2022 Patient encounter procedure [facility] [place] Start: 02-15-2022 End: 03-15-2022 Discharged Recurring [facility] [place] Start: 01-03-2022 Ophthalmic examinati on and evaluation Gregory Nino MD Work Phone: [facility] Start: 11-16-2021 End: 12-13-2021 Discharged Recurring [facility] [place] Start: 06-01-2021 Patient encounter status Gregory Nino MD Work Phone: [facility] Work Phone: Start: 10-12-2018 Patient encounter procedure [facility] Start: 09-28-2018 [facility] Procedures Date Procedure Procedure Detail Performing Clinician Start: 07-11-2025 Follow-up visit Follow Up VANESSA BERG Start: 06-23-2025 Radiologic exam ches t 2 views Laurent Rose APRN.ELVA Work Phone: Start: 05-28-2025 Radiologic exam knee complete 4/more views Gregory Rincon PA-C Work Phone: Start: 02-03-2025 Radex shoulder compl ete minimum 2 views Gregory Nino MD Work Phone: Start: 12-25-2024 Adult depression scr eening assessment Vanessa Berg PA-C Work Phone: Start: 05-07-2024 Radiologic exam ches t 2 views Cass Espitia APRN.CIRCULAR KNIFE CUTTER MACHINE Work Phone: Start: 02-07-2024 Digital breast tomosynthesis unilateral Vanessa Berg PA-C Work Phone: Start: 01-23-2024 Screening mammograph y bi 2-view breast inc cad Bulk Order Provider Start: 09-18-2023 Mri abdomen w/o & w/contrast material Laurent Pagan MD Work Phone: Start: 07-31-2023 Computed tomography of abdomen and pelvis with intravenous contrast Start: 07-31-2023 Urnls dip stick/tabl et rgnt auto w/o microscopy Pippa Beck PA-C Work Phone: Start: 07-28-2023 INFLUENZA VACCINE, P RSV FREE, AGE 65+ YR, HIGH DOSE, QUADRIVALENT (FLUZONE HIGH-DOSE) Laurent Pagan MD Work Phone: Start: 07-28-2023 PFIZER-BIONTECH COVI D-19 VACCINE ( SEASON) AGE 12+ YR Laurent Pagan MD Work Phone: Start: 01-04-2023 STREP A MOLECULAR (POC) Brody Mcgarry MOTORCYCLE ENGINE ASSEMBLER.CIRCULAR KNIFE CUTTER MACHINE Work Phone: Start: 10-06-2022 INFLUENZA SEASONAL QUADRIVALENT HIGH DOSE AGE 65+ Cheo Kahn MD Work Phone: Start: 07-06-2022 PFIZER-BIONTECH COVI D-19 BIVALENT BOOSTER VACCINE, AGE 12+ YR Laurent Pagan MD Work Phone: Start: 09-21-2022 Adult depression scr eening assessment Laurent Pagan MD Work Phone: Start: 10-22-2021 Mammography Gregory justice MD Work Phone: Start: 06-30-2021 Colonoscopy Gregory justice MD Work Phone: Start: 11-29-2020 Adult depression scr eening assessment Gregory Nino MD Work Phone: Plan of Treatment Date Care Activity Detail Author Start: 06-01-2031 Urine microalbumin profile [facility] Start: 06-30-2026 Colonoscopy COLONOSCOPY [facility] Start: 06-30-2026 COLORECTAL CANCER SCREENING COLORECTAL CANCER SCREENING [facility] Start: 06-30-2026 Screening for malign ant neoplasm of colon [facility] Start: 06-27-2026 Annual PCP Team Field Operations Coordinator sincere Disease Visit Annual PCP Team Chronic Disease Visit [facility] Start: 06-27-2026 Diabetic foot examination Diabetic Foot Exam [facility] Start: 06-23-2026 Hepatitis B screening Urine Al bumin:Creatinine Ratio [facility] Start: 06-23-2026 Hepatitis B surface antibody level LDL Cholesterol [facility] Start: 02-16-2026 BP Controlled (<130/80) BP Controlle d (<130/80) [facility] Start: 12-30-2025 Glaucoma screening Dilated Retinal E xam [facility] Start: 12-27-2025 Screening for malign ant neoplasm of breast Mammogram Screening [facility] Start: 12-25-2025 Annual PCP Team Field Operations Coordinator sincere Disease Visit Annual PCP Team Chronic Disease Visit [facility] Start: 12-25-2025 Anxiety Screening Anxiety Screening [facility] Start: 12-25-2025 BP Controlled (<130/80) BP Controlle d (<130/80) [facility] Start: 12-25-2025 Depression Screening Depression Scre ening [facility] Start: 12-24-2025 Hepatitis B surface antibody level LDL Cholesterol [facility] Start: 12-21-2025 Hemoglobin A1c measurement HbA1C [facility] Start: 09-12-2025 End: 09-12-2025 Patient encounter procedure 09/12/2025 9:00 AM EST Appointment Radiology [address] [place] [address] Dx: Pancreatic cyst (HCC) [K86.2]; Hemangioma of liver [D18.03] Radiology Comment on above: Dx: Pancreatic cyst (HCC) [K86.2]; Hemangioma of liver [D18.03] Start: 08-26-2025 End: 08-26-2025 Patient encounter procedure 08/26/2025 3:10 PM EST Office Visit OB/Gynecology [address] [place] [address] Joslyn Espitia MD [address] [place] [address] Dx: Well woman exam [Z01.419] OB/Gynecology Comment on above: Dx: Well woman exam [Z01.419] Start: 08-11-2025 Registered Recurring Registered Recu rring -Physical Therapy Work Phone: Start: 07-11-2025 End: 07-11-2025 Patient encounter procedure 07/11/2025 12:20 PM EDT Office Visit [facility] [place] [address] [facility] [place] [address] Vanessa Berg PA-C [address] [facility] [place] [id number] 2 week f/u leg edema and neuropathy [facility] Comment on above: 2 week f/u leg edema and neuropathy Start: 07-04-2025 End: 10-03-2025 Basic metabolic 2000 panel - Serum or Plasma [facility] Comment on above: Expected: 07/04/2025 , Expires: 10/03/2025 Start: 06-30-2025 End: 06-30-2025 Patient encounter procedure 06/30/2025 12:20 PM EDT [facility] [place] [address] [facility] [place] [address] Vanessa Berg PA-C [address] [place] [address] 6 month follow up - Wellness [facility] Comment on above: 6 month follow up - Wellness Start: 06-27-2025 End: 09-26-2025 Bacteria identified in Urine by Culture [facility] Comment on above: Expected: 06/27/2025 , Expires: 09/26/2025 Start: 06-27-2025 End: 09-26-2025 Comprehensive metabolic 2000 panel - Serum or Plasma COMPREHENSIVE METABOLIC PANEL Lab Routine Essential hypertension Controlled type 2 diabetes mellitus without complication, without long-term current use of insulin (HCC) Expected: 06/27/2025, Expires: 09/26/2025 [facility] Comment on above: Expected: 06/27/2025 , Expires: 09/26/2025 Start: 06-27-2025 End: 09-26-2025 Hemoglobin A1c in Blood HEMOGLOBIN A1C Lab Routine Controlled type 2 diabetes mellitus without complication, without long-term current use of insulin (HCC) Expected: 06/27/2025, Expires: 09/26/2025 [facility] Comment on above: Expected: 06/27/2025 , Expires: 09/26/2025 Start: 06-27-2025 End: 09-26-2025 LIPID PANEL, NONFASTING LIPID PANEL, NONFASTING Lab Routine Mixed hyperlipidemia Expected: 06/27/2025, Expires: 09/26/2025 [facility] Comment on above: Expected: 06/27/2025 , Expires: 09/26/2025 Start: 06-27-2025 End: 09-26-2025 Microalbumin/Creatinine [Mass Ratio] in Urine ALBUMIN/CREATININE RATIO, URINE Lab Routine Controlled type 2 diabetes mellitus without complication, without long-term current use of insulin (HCC) Expected: 06/27/2025, Expires: 09/26/2025 [facility] Comment on above: Expected: 06/27/2025 , Expires: 09/26/2025 Start: 06-27-2025 End: 09-26-2025 Urinalysis complete panel - Urine [facility] Comment on above: Expected: 06/27/2025 , Expires: 09/26/2025 Start: 06-27-2025 End: 06-27-2025 Patient encounter procedure [facility] [place] Comment on above: 6 month follow up - Wellness 6 month follow up - Wellness Care Gap Closure Start: 06-26-2025 Annual PCP Team Field Operations Coordinator sincere Disease Visit Annual PCP Team Chronic Disease Visit [facility] Start: 06-26-2025 Anxiety Screening Anxiety Screening [facility] Comment on above: Postponed from 10/18 (Declined at this time) Start: 06-26-2025 BP Controlled (<130/80) BP Controlle d (<130/80) [facility] Start: 06-26-2025 Covid-19 Vaccine () Covid-19 Vaccine () [facility] Comment on above: Postponed from 06/16 (Not Currently Available) Start: 06-26-2025 Covid-19 Vaccine () Covid-19 Vaccine () [facility] Comment on above: Postponed from 06/16 (Not Currently Available) Start: 06-26-2025 Diabetic foot examination Diabetic Foot Exam [facility] Start: 06-26-2025 Hemoglobin A1c measurement HbA1C [facility] Start: 06-26-2025 RSV Vaccine (1 - 1-d ose 60+ series) RSV Vaccine (1 - 1-dose 60+ series) [facility] Comment on above: Postponed from 10/18 (Insurance Coverage) Start: 06-26-2025 RSV Vaccine (1 - Ris k 60-74 years 1-dose series) RSV Vaccine (1 - Risk 60-74 years 1-dose series) [facility] Comment on above: Postponed from 10/18 (Insurance Coverage) Start: 06-19-2025 Hepatitis B screening Urine Al bumin:Creatinine Ratio [facility] Start: 06-19-2025 Hepatitis B surface antibody level LDL Cholesterol [facility] Start: 06-16-2025 Influenza vaccination Influenza Vacc ine (#1) [facility] Start: 05-15-2025 Annual PCP Team Field Operations Coordinator sincere Disease Visit Annual PCP Team Chronic Disease Visit [facility] Start: 05-15-2025 BP Controlled (<130/80) BP Controlle d (<130/80) [facility] Start: 05-07-2025 BP Controlled (<130/80) BP Controlle d (<130/80) [facility] Start: 04-14-2025 Influenza vaccination Influenza Vacc ine (#1) [facility] Comment on above: Postponed from 09/01 /2024 (Currently Scheduled) Start: 04-02-2025 Covid-19 Vaccine (7 - Moderna risk season) Covid-19 Vaccine (7 - Moderna risk ) [facility] Start: 01-22-2025 Screening for malign ant neoplasm of breast Mammogram Screening [facility] Start: 12-27-2024 End: 12-27-2024 Patient encounter procedure 12/27/2024 11:10 AM EDT Appointment Mammogram [address] [place] [address] Encounter for screening mammogram for breast cancer [Z12.31] Mammogram Comment on above: Encounter for screen ing mammogram for breast cancer [Z12.31] Start: 12-26-2024 Annual PCP Team Field Operations Coordinator sincere Disease Visit Annual PCP Team Chronic Disease Visit [facility] Start: 12-26-2024 BP Controlled (<130/80) BP Controlle d (<130/80) [facility] Start: 12-26-2024 Hepatitis B surface antibody level LDL Cholesterol [facility] Start: 12-25-2024 Glaucoma screening Dilated Retinal E xam [facility] Start: 12-25-2024 End: 12-25-2024 Patient encounter procedure [facility] Comment on above: 6 month follow up Start: 12-17-2024 Hemoglobin A1c measurement HbA1C [facility] Start: 12-13-2024 End: 03-14-2025 Hemoglobin A1c in Blood HEMOGLOBIN A1C Lab Routine Controlled type 2 diabetes mellitus without complication, without long-term current use of insulin (HCC) Expected: 12/13/2024, Expires: 03/14/2025 [facility] Comment on above: Expected: 12/13/2024 , Expires: 03/14/2025 Start: 12-13-2024 End: 03-14-2025 LIPID PANEL, NONFASTING LIPID PANEL, NONFASTING Lab Routine Controlled type 2 diabetes mellitus without complication, without long-term current use of insulin (HCC) Essential hypertension Mixed hyperlipidemia Expected: 12/13/2024, Expires: 03/14/2025 [facility] Comment on above: Expected: 12/13/2024 , Expires: 03/14/2025 Start: 11-27-2024 Covid-19 Vaccine () Covid-19 Vaccine ( season) [facility] Start: 10-16-2024 Advance Directive Discussion Advance Directive Discussion [facility] Start: 10-16-2024 Medicare Advantage Annual Wellness Visit Medicare Advantage Annual Wellness Visit [facility] Start: 10-10-2024 End: 10-10-2024 Patient encounter procedure 10/10/2024 3:00 PM EST Appointment Radiology [address] [place] [address] MRI PANC/OTONIEL WWO IVCON for Pancreatic cyst [K86.2] Radiology Comment on above: MRI PANC/OTONIEL WWO IVC ON for Pancreatic cyst [K86.2] Start: 09-23-2024 End: 07-26-2025 MR Biliary ducts and Pancreatic duct WO and W contrast IV MRI PANC/OTONIEL WO/W IVCON Radiology Routine Pancreatic cyst Expected: 09/23/2024, Expires: 07/26/2025 [place] Work Phone: Comment on above: Expected: 09/23/2024 , Expires: 07/26/2025 Start: 09-23-2024 End: 07-26-2025 MR Unspecified body region 3D post processing MRI 3D POST PROCESSING Radiology Routine Pancreatic cyst Expected: 09/23/2024, Expires: 07/26/2025 [facility] Comment on above: Expected: 09/23/2024 , Expires: 07/26/2025 Start: 08-14-2024 Annual PCP Team Field Operations Coordinator sincere Disease Visit Annual PCP Team Chronic Disease Visit [facility] Start: 08-14-2024 BP Controlled (<130/80) BP Controlle d (<130/80) [facility] Start: 06-28-2024 Hemoglobin A1c measurement HbA1C [facility] Start: 06-26-2024 3 comp foot exam completed DIABETIC FOOT EXAM [facility] Start: 06-26-2024 ANNUAL PCP TEAM HIGH VALUE ASSOCIATE SINCERE DISEASE VISIT ANNUAL PCP TEAM CHRONIC DISEASE VISIT [facility] Start: 06-26-2024 BP CONTROLLED (<130/80) BP CONTROLLE D (<130/80) [facility] Start: 06-26-2024 COVID-19 VACCINE (5 - Moderna risk series) COVID-19 VACCINE (5 - Moderna risk series) [facility] Comment on above: Postponed from 08/31 (Not Currently Available) Start: 06-26-2024 Depression Screening Depression Scre ening [facility] Comment on above: Postponed from 10/18 (Declined at this time) Start: 06-26-2024 Diabetic foot examination Diabetic Foot Exam [facility] Start: 06-26-2024 Hepatitis B screening URINE AL BUMIN:CREATININE RATIO [facility] Start: 06-26-2024 Hepatitis B surface antibody level LDL Cholesterol [facility] Start: 06-26-2024 End: 06-26-2024 Patient encounter procedure 06/26/2024 1:00 PM EDT Office Visit [facility] [place] [address] [place] [address] Laurent Pagan MD [address] [place] [address] physical [facility] [place] Comment on above: physical Start: 06-17-2024 End: 09-16-2024 ALBUMIN/CREAT RATIO RND UR ALBUMIN/CREAT RATIO RND UR Lab Routine Controlled type 2 diabetes mellitus without complication, without long-term current use of insulin (HCC) Expected: 06/17/2024, Expires: 09/16/2024 [place] Work Phone: Comment on above: Expected: 06/17/2024 , Expires: 09/16/2024 Start: 06-17-2024 End: 09-16-2024 CBC W Auto Differential panel - Blood CBC + DIFF Lab Routine Essential hypertension Controlled type 2 diabetes mellitus without complication, without long-term current use of insulin (HCC) Expected: 06/17/2024, Expires: 09/16/2024 [place] Work Phone: Comment on above: Expected: 06/17/2024 , Expires: 09/16/2024 Start: 06-17-2024 End: 09-16-2024 Comprehensive metabolic 2000 panel - Serum or Plasma COMP METABOLIC PANEL Lab Routine Controlled type 2 diabetes mellitus without complication, without long-term current use of insulin (HCC) Expected: 06/17/2024, Expires: 09/16/2024 [place] Work Phone: Comment on above: Expected: 06/17/2024 , Expires: 09/16/2024 Start: 06-17-2024 End: 09-16-2024 Hemoglobin A1c in Blood HGB A1C Lab Routine Controlled type 2 diabetes mellitus without complication, without long-term current use of insulin (HCC) Expected: 06/17/2024, Expires: 09/16/2024 [place] Work Phone: Comment on above: Expected: 06/17/2024 , Expires: 09/16/2024 Start: 06-17-2024 End: 09-16-2024 LIPID PANEL, NONFASTING LIPID PANEL, NONFASTING Lab Routine Mixed hyperlipidemia Controlled type 2 diabetes mellitus without complication, without long-term current use of insulin (HCC) Expected: 06/17/2024, Expires: 09/16/2024 [place] Work Phone: Comment on above: Expected: 06/17/2024 , Expires: 09/16/2024 Start: 06-17-2024 End: 09-16-2024 Urinalysis complete panel - Urine URINALYSIS, WITH MICROSCOPIC Lab Routine Controlled type 2 diabetes mellitus without complication, without long-term current use of insulin (HCC) Expected: 06/17/2024, Expires: 09/16/2024 [place] Work Phone: Comment on above: Expected: 06/17/2024 , Expires: 09/16/2024 Start: 06-16-2024 Covid-19 Vaccine ( season) Covid-19 Vaccine ( season) [facility] Start: 06-16-2024 Influenza vaccination Influenza Vacc ine (#1) [facility] Start: 05-07-2024 End: 05-21-2024 COVID & INFLUENZA A/B & RSV NAAT, ROUTINE [place] Work Phone: Comment on above: Expected: 05/07/2024 , Expires: 05/21/2024 Start: 04-14-2024 Influenza vaccination [facility] Comment on above: Postponed from 06/16 (Declined at this time) Start: 01-04-2024 ANNUAL PCP TEAM HIGH VALUE ASSOCIATE SINCERE DISEASE VISIT ANNUAL PCP TEAM CHRONIC DISEASE VISIT [facility] Start: 01-04-2024 BP CONTROLLED (<130/80) BP CONTROLLE D (<130/80) [facility] Start: 01-04-2024 Hepatitis B surface antibody level LDL CHOLESTEROL [facility] Start: 12-27-2023 End: 03-27-2024 Hepatic function 2000 panel - Serum or Plasma [place] Work Phone: Comment on above: Expected: 12/27/2023 , Expires: 03/27/2024 Start: 12-27-2023 End: 03-27-2024 LIPID PANEL, NONFASTING [place] Work Phone: Comment on above: Expected: 12/27/2023 , Expires: 03/27/2024 Start: 12-25-2023 Hemoglobin A1c measurement HbA1C [facility] Start: 12-25-2023 Hemoglobin A1c/Hemoglobin.total in Blood HBA1C [facility] Start: 12-21-2023 Glaucoma screening Dilated Retinal E xam [facility] Start: 12-21-2023 Hepatitis C antibody , confirmatory test DILATED RETINAL EXAM [facility] Start: 10-16-2023 Advance Directive Discussion Advance Directive Discussion [facility] Start: 10-16-2023 Behavioral Health Screening Behavioral Health Screening [facility] Start: 10-16-2023 Depression Assessment Depression Ass essment [facility] Start: 09-22-2023 Covid-19 Vaccine () Covid-19 Vaccine () [facility] Start: 07-31-2023 [facility] Start: 07-29-2023 End: 09-28-2023 Urinalysis complete panel - Urine URINALYSIS, WITH MICROSCOPIC Lab Routine Proteinuria, unspecified type Expected: 07/29/2023, Expires: 09/28/2023 [place] Work Phone: Comment on above: Expected: 07/29/2023 , Expires: 09/28/2023 Start: 07-06-2023 3 comp foot exam completed DIABETIC FOOT EXAM [facility] Start: 07-06-2023 Adult depression screening assessment DEPRESSION SCREENING [facility] Start: 07-06-2023 ANNUAL PCP TEAM HIGH VALUE ASSOCIATE SINCERE DISEASE VISIT ANNUAL PCP TEAM CHRONIC DISEASE VISIT [facility] Start: 07-06-2023 Hemoglobin A1c/Hemoglobin.total in Blood HBA1C [facility] Start: 07-04-2023 Hepatitis B screening URINE AL BUMIN:CREATININE RATIO [facility] Start: 07-04-2023 Hepatitis B surface antibody level LDL CHOLESTEROL [facility] Start: 06-26-2023 End: 08-26-2023 Comprehensive metabolic 2000 panel - Serum or Plasma [place] Work Phone: Comment on above: Expected: 06/26/2023 , Expires: 08/26/2023 Start: 06-26-2023 End: 08-26-2023 LIPID PANEL, NONFASTING [place] Work Phone: Comment on above: Expected: 06/26/2023 , Expires: 08/26/2023 Start: 06-16-2023 Influenza vaccination INFLUENZA (#1) [facility] Start: 05-04-2023 BP CONTROLLED (<130/80) BP CONTROLLE D (<130/80) [facility] Start: 01-03-2023 Hepatitis C antibody , confirmatory test DILATED RETINAL EXAM [facility] Start: 01-01-2023 Hemoglobin A1c/Hemoglobin.total in Blood HBA1C [facility] Start: 12-23-2022 End: 02-22-2023 Hemoglobin A1c in Blood HGB A1C Lab Routine Controlled type 2 diabetes mellitus without complication, without long-term current use of insulin (HCC) Expected: 12/23/2022, Expires: 02/22/2023 [place] Work Phone: Comment on above: Expected: 12/23/2022 , Expires: 02/22/2023 Start: 12-23-2022 End: 02-22-2023 Hepatic function 2000 panel - Serum or Plasma HEPATIC FUNCTION PNL Lab Routine Controlled type 2 diabetes mellitus without complication, without long-term current use of insulin (HCC) Mixed hyperlipidemia Essential hypertension Expected: 12/23/2022, Expires: 02/22/2023 [place] Work Phone: Comment on above: Expected: 12/23/2022 , Expires: 02/22/2023 Start: 12-23-2022 End: 02-22-2023 LIPID PANEL, NONFASTING LIPID PANEL, NONFASTING Lab Routine Mixed hyperlipidemia Essential hypertension Expected: 12/23/2022, Expires: 02/22/2023 [place] Work Phone: Comment on above: Expected: 12/23/2022 , Expires: 02/22/2023 Start: 12-22-2022 3 comp foot exam completed DIABETIC FOOT EXAM [facility] Start: 12-22-2022 ANNUAL PCP TEAM HIGH VALUE ASSOCIATE SINCERE DISEASE VISIT ANNUAL PCP TEAM CHRONIC DISEASE VISIT [facility] Start: 12-22-2022 Hepatitis B surface antibody level LDL CHOLESTEROL [facility] Start: 12-22-2022 PNEUMOCOCCAL: 65+ (3 - PPSV23 if available, else PCV20) PNEUMOCOCCAL: 65+ (3 - PPSV23 if available, else PCV20) [facility] Start: 12-22-2022 PNEUMOCOCCAL: 65+ (3 - PPSV23 or PCV20) PNEUMOCOCCAL: 65+ (3 - PPSV23 or PCV20) [facility] Start: 10-22-2022 Mammography [facility] Start: 10-22-2022 Screening for malign ant neoplasm of breast Mammogram Screening [facility] Start: 10-16-2022 ADVANCE DIRECTIVE DISCUSSION ADVANCE DIRECTIVE DISCUSSION [facility] Start: 10-16-2022 DEPRESSION ASSESSMENT DEPRESSION ASS ESSMENT [facility] Start: 09-28-2022 COVID-19 VACCINE (4 - Booster for Moderna series) COVID-19 VACCINE (4 - Booster for Moderna series) [facility] Start: 08-31-2022 SHINGRIX VACCINE (2 of 2) SHINGRIX VACCINE (2 of 2) [facility] Start: 06-29-2022 End: 08-29-2022 ALBUMIN/CREAT RATIO RND UR ALBUMIN/CREAT RATIO RND UR Lab Routine Controlled type 2 diabetes mellitus without complication, without long-term current use of insulin (HCC) Expected: 06/29/2022, Expires: 08/29/2022 [place] Work Phone: Comment on above: Expected: 06/29/2022 , Expires: 08/29/2022 Start: 06-29-2022 End: 08-29-2022 CBC W Auto Differential panel - Blood CBC + DIFF Lab Routine Controlled type 2 diabetes mellitus without complication, without long-term current use of insulin (HCC) Expected: 06/29/2022, Expires: 08/29/2022 [place] Work Phone: Comment on above: Expected: 06/29/2022 , Expires: 08/29/2022 Start: 06-29-2022 End: 08-29-2022 Comprehensive metabolic 2000 panel - Serum or Plasma COMP METABOLIC PANEL Lab Routine Controlled type 2 diabetes mellitus without complication, without long-term current use of insulin (HCC) Essential hypertension Mixed hyperlipidemia Expected: 06/29/2022, Expires: 08/29/2022 [place] Work Phone: Comment on above: Expected: 06/29/2022 , Expires: 08/29/2022 Start: 06-29-2022 End: 08-29-2022 Hemoglobin A1c in Blood HGB A1C Lab Routine Controlled type 2 diabetes mellitus without complication, without long-term current use of insulin ([facility]) Expected: 06/29/2022, Expires: 08/29/2022 [place] Work Phone: Comment on above: Expected: 06/29/2022 , Expires: 08/29/2022 Start: 06-29-2022 End: 08-29-2022 LIPID PANEL, NONFASTING LIPID PANEL, NONFASTING Lab Routine Controlled type 2 diabetes mellitus without complication, without long-term current use of insulin (HCC) Essential hypertension Mixed hyperlipidemia Expected: 06/29/2022, Expires: 08/29/2022 [place] Work Phone: Comment on above: Expected: 06/29/2022 , Expires: 08/29/2022 Start: 06-29-2022 End: 08-29-2022 Urinalysis complete panel - Urine URINALYSIS, WITH MICROSCOPIC Lab Routine Controlled type 2 diabetes mellitus without complication, without long-term current use of insulin ([facility]) Essential hypertension Mixed hyperlipidemia Expected: 06/29/2022, Expires: 08/29/2022 [place] Work Phone: Comment on above: Expected: 06/29/2022 , Expires: 08/29/2022 Start: 06-24-2022 Hemoglobin A1c/Hemoglobin.total in Blood HBA1C [facility] Start: 06-16-2022 Influenza vaccination INFLUENZA (#1) [facility] Start: 06-01-2022 Hepatitis B screening URINE AL BUMIN:CREATININE RATIO [facility] Start: 11-29-2021 Adult depression screening assessment DEPRESSION SCREENING [facility] Start: 2021 ADVANCE DIRECTIVE DISCUSSION ADVANCE DIRECTIVE DISCUSSION [facility] Start: 10-16-2021 DEPRESSION ASSESSMENT DEPRESSION ASS ESSMENT [facility] Start: 09-30-2021 COVID-19 VACCINE (4 - Booster for Moderna series) COVID-19 VACCINE (4 - Booster for Moderna series) [facility] Start: 09-23-2021 COVID-19 VACCINE (4 - Booster for Moderna series) COVID-19 VACCINE (4 - Booster for Moderna series) [facility] Start: 03-16-2019 Screening for malign ant neoplasm of cervix Cervical Cancer Screening [facility] Start: 2016 Hepatitis B Vaccine (1 of 3 - Risk 3-dose series) Hepatitis B Vaccine (1 of 3 - Risk 3-dose series) [facility] Start: 2016 RSV Vaccine (1 - 1-d ose 60+ series) RSV Vaccine (1 - 1-dose 60+ series) [facility] Start: 2016 RSV Vaccine (1 - Ris k 60-74 years 1-dose series) RSV Vaccine (1 - Risk 60-74 years 1-dose series) [facility] Start: 2001 COLOGUARD (FIT-DNA) COLOGUARD (FIT-D NA) [facility] Start: [address] COLONOGRAPHY [facility] Start: 2001 FECAL OCCULT BLOOD FECAL OCCULT BLOO D [facility] Start: 2001 Screening for malign ant neoplasm of colon [facility] Start: 2001 SIGMOIDOSCOPY SIGMOIDOSCOPY [facility] Start: 1975 SHINGRIX VACCINE (1 of 2) SHINGRIX VACCINE (1 of 2) [facility] Start: 1974 Anxiety Screening Anxiety Screening [facility] Start: 1974 BP CONTROLLED (<130/80) BP CONTROLLE D (<130/80) [facility] Start: 1974 Depression Screening Depression Scre ening [facility] Basic metabolic 2000 panel - Serum or Plasma BASIC METABOLIC PANEL Lab Routine Controlled type 2 diabetes mellitus without complication, without long-term current use of insulin (HCC) 06/27/2025 1:24 PM EDT [facility] End: 01-24-2026 DBT Breast - bilateral screening BUDDY SCREENING [facility] Routine Encounter for screening mammogram for breast cancer 1 Occurrences starting 12/25/2024 until 01/24/2026 [place] Work Phone: Comment on above: 1 Occurrences starti ng 12/25/2024 until 01/24/2026 DBT Breast - bilater al screening BUDDY SCREENING [facility] Routine Encounter for screening mammogram for breast cancer 12/27/2024 11:26 AM EDT [place] Work Phone: Hzv zoster vacc recombinant adjuvanted im njx ZOSTER VACC RECOMBINANT,IM Immunization/Injection Routine Encounter for immunization Ordered: 09/19/2022 [place] Work Phone: Comment on above: Ordered: 09/19/2022 Influenza virus A an d B RNA and SARS-CoV-2 (COVID-19) N gene panel - Respiratory specimen by JOELLE with probe detection COVID WITH FLUA+B, ROUTINE Microbiology Routine Sore throat Ordered: 01/04/2023 [place] Work Phone: Comment on above: Ordered: 01/04/2023 End: 01-06-2024 BUDDY SCREENING B[facility]DY SCREENING Radiology Routine Encounter for screening mammogram for breast cancer 1 Occurrences starting 12/07/2022 until 01/06/2024 [place] Work Phone: Comment on above: 1 Occurrences starti ng 12/07/2022 until 01/06/2024 End: 02-21-2025 MG Breast - right Diagnostic for implant BUDDY DIAGNOSTIC RIGHT Radiology Routine Abnormal mammogram 1 Occurrences starting 01/23/2024 until 02/21/2025 [place] Work Phone: Comment on above: 1 Occurrences starti ng 01/23/2024 until 02/21/2025 End: 12-21-2024 MG Breast Screening BUDDY SCREENING Radiology Routine Encounter for screening mammogram for breast cancer 1 Occurrences starting 11/22/2023 until 12/21/2024 [place] Work Phone: Comment on above: 1 Occurrences starti ng 11/22/2023 until 12/21/2024 MR Biliary ducts and Pancreatic duct WO and W contrast IV MRI PANC/OTONIEL WO/W IVCON Radiology Routine Pancreatic cyst 09/27/2024 1:50 PM [facility] Work Phone: End: 07-27-2026 MR Biliary ducts and Pancreatic duct WO and W contrast IV MRI PANC/OTONIEL WO/W IVCON Radiology Routine Pancreatic cyst (HCC) Hemangioma of liver 1 Occurrences starting 06/27/2025 until 07/27/2026 [place] Work Phone: Comment on above: 1 Occurrences starti ng 06/27/2025 until 07/27/2026 MR Unspecified body region 3D post processing MRI 3D POST PROCESSING Radiology Routine Pancreatic cyst 09/27/2024 1:50 PM [facility] End: 07-27-2026 MR Unspecified body region 3D post processing MRI 3D POST PROCESSING Radiology Routine Pancreatic cyst (HCC) Hemangioma of liver 1 Occurrences starting 06/27/2025 until 07/27/2026 [facility] Comment on above: 1 Occurrences starti ng 06/27/2025 until 07/27/2026 End: 09-13-2024 Mri abdomen w/o & w/contrast material MRI LIVER WO/W IVCON Radiology Routine Liver lesion, right lobe 1 Occurrences starting 08/15/2023 until 09/13/2024 [place] Work Phone: Comment on above: 1 Occurrences starti ng 08/15/2023 until 09/13/2024 Patient Education ED Diverticulitis [facility] Work Phone: [facility]: End: 02-21-2025 US Breast - right limited US BREAST LTD RIGHT Radiology Routine Abnormal mammogram 1 Occurrences starting 01/23/2024 until 02/21/2025 [place] Work Phone: Comment on above: 1 Occurrences starti ng 01/23/2024 until 02/21/2025 [facility] Immunizations Immunization Date Immunization Notes Care Provider Fa sharron 10-02-2024 influenza, high dose seasonal, preservative-free Laurent Pagan MD Work Phone: [facility] 10-02-2024 influenza virus vaccine, unspecified formulation Gregory Rincon PA-C Work Phone: [facility] 07-28-2023 COVID-19 vaccine, ag e 12+ yr, season (PFIZER-BIONTECH) Immunization Rafael Work Phone: [facility] Work Phone: 07-28-2023 influenza (HD-IIV4) vaccine, age 65+ yr, high dose, quadrivalent, PF (FLUZONE HIGH-DOSE) Immunization Rafael Work Phone: [facility] Work Phone: 07-28-2023 influenza virus vaccine, unspecified formulation Cass Espitia APRN.CIRCULAR KNIFE CUTTER MACHINE Work Phone: [facility] 01-03-2023 pneumococcal polysaccharide vaccine, 23 valent Vanessa Berg PA-C Work Phone: [facility] 10-06-2022 influenza, high-dose , quadrivalent vaccine (FLUZONE HIGH DOSE QUADRIVALENT) Sd Nurse Work Phone: [facility] Work Phone: 10-06-2022 zoster vaccine recombinant Mi Nurse Work Phone: [facility] Work Phone: 10-06-2022 influenza virus vaccine, unspecified formulation Laurent Pagan MD Work Phone: [facility] 07-06-2022 COVID-19 booster vaccine, age 12+ yr, bivalent (PFIZER-BIONTECH) Laurent Pagan MD Work Phone: [facility] 07-06-2022 zoster vaccine recombinant Laurent Pagan MD Work Phone: [facility] 12-22-2021 pneumococcal conjuga te vaccine, 13 valent Gregory Nino MD Work Phone: [facility] 06-01-2021 tetanus toxoid, redu jey diphtheria toxoid, and acellular pertussis vaccine, adsorbed Gregory Nino MD Work Phone: [facility] 11-25-2020 COVID-19 vaccine, fu ll dose (MODERNA) Gregory Nino MD Work Phone: [facility] 10-29-2020 COVID-19 vaccine, fu ll dose (MODERNA) Gregory Nino MD Work Phone: [facility] 07-16-2020 influenza, seasonal, injectable Gregory Nino MD Work Phone: [facility] 08-22-2018 influenza, injectabl e, quadrivalent, contains preservative Gregory Nino MD Work Phone: [facility] 12-12-2017 pneumococcal conjuga te vaccine, 13 valent Gregory Nino MD Work Phone: [facility] 10-11-2017 influenza, seasonal, injectable Gregory Nino MD Work Phone: [facility] 07-10-2014 pneumococcal polysaccharide vaccine, 23 valent Gregory Nino MD Work Phone: [facility] Work Phone: 01-14-2011 tetanus toxoid, redu jey diphtheria toxoid, and acellular pertussis vaccine, adsorbed Gregory Nino MD Work Phone: [facility] Payers Date Payer Category Payer Medicare (Managed Care) AETKAVEH CRANDALL [id number] 2024 Private Health Insurance [id number] 2024 Private Health Insurance [id number] 2024 Self-pay [id number] 2019 Private Health Insurance [id number] 2019 Unknown 2019 Unknown MMO MMO [employer] [id number] 2019-Present [phone] [address] [place] [address] PPO [id number] 2019 Unknown [id number] 1955 Unknown [id number] 1955 Unknown [id number] Self-pay [id number] Unknown [id number] Unknown [id number] Unknown [id number] Unknown [id number] Unknown [id number] Unknown [id number] Unknown [id number] Unknown [id number] Unknown [id number] Social History Date Type Detail Facility Start: 05-14-2021 End: 07-31-2023 Tobacco smoking status OKIS Unknown if ever smoked [facility] Start: 1955 Sex Assigned At Female [facility] Start: 12-12-2017 End: 07-31-2023 Tobacco smoking status OKIS Never smoked tobacco [facility] Start: 05-04-2022 End: 07-06-2022 Alcohol intake Current drinker of alcohol (finding) [facility] Start: 12-21-2021 History SDOH Alcohol Frequency 1 [facility] Start: 12-21-2021 History SDOH Alcohol Std Drinks 98 [facility] Start: 06-01-2021 History SDOH Alcohol Comment rarely [facility] Start: 12-21-2021 History SDOH Social Connections Phone 4 [facility] Start: 12-21-2021 History SDOH Social Connections Yazidism 2 [facility] Start: 12-21-2021 History SDOH Social Connections Living 8 [facility] Start: 12-21-2021 History SDOH Physical Activity DPW 0 [facility] Start: 12-21-2021 History SDOH Stress 3 [facility] Start: 11-29-2020 Education 18 [facility] Start: 04-24-2022 End: 07-06-2022 Exposure to SARS-CoV-2 (event) Not sure [facility] Start: 12-12-2017 End: 07-06-2022 Tobacco use and exposure Smokeless tobacco non-user [facility] Start: 01-03-2023 End: 06-28-2025 Alcohol intake Ex-drinker (finding) [facility] Start: 04-21-2023 End: 06-26-2023 History of Social function [facility] Work Phone: Start: 04-21-2023 End: 06-26-2023 Tobacco use panel [facility] Work Phone: Start: 09-16-2012 Adult Depression Screening Assessment 0 [facility] Work Phone: Start: 05-25-2021 Sexual orientation Heterosexual (finding) [facility] Do you belong to any clubs or organizations such as taoist groups, unions, fraternal or athletic groups, or school groups? Yes [facility] Are you now , , , , never or living with a partner? Living with partner [facility] How often to you hav e a drink containing alcohol? Never [facility] How hard is it for y ou to pay for the very basics like food, housing, medical care, and heating Somewhat hard [facility] Do you feel stress - tense, restless, nervous, or anxious, or unable to sleep at night because your mind is troubled all the time - these days [OSQ] To some extent [facility] (I/We) worried andreas er (my/our) food would run out before (I/we) got money to buy more. Never true [facility] In the past 12 month s, was there a time when you were not able to pay the mortgage or rent on time? No [facility] How hard is it for y ou to pay for the very basics like food, housing, medical care, and heating Not very hard [facility] Do you feel stress - tense, restless, nervous, or anxious, or unable to sleep at night because your mind is troubled all the time - these days [OSQ] Only a little [facility] Start: 01-03-2025 Sex Female (finding) [facility] How often to you hav e a drink containing alcohol? Monthly or less [facility] How many standard dr inks containing alcohol do you have on a typical day? 1 or 2 [facility] Functional Status Date Assessment Result Facility 05-20-2015 Are you deaf, or do you have serious difficulty hearing No 05/20/2015 4:13 PM EDT Katherine Mendez Ma No [facility] 05-20-2015 Are you blind, or do you have serious difficulty seeing, even when wearing glasses No 05/20/2015 4:13 PM EDT Katherine Mendez Ma No [facility] 05-20-2015 Do you have serious difficulty walking or climbing stairs No 05/20/2015 4:13 PM EDT Katherine Mendez Ma No [facility] 05-20-2015 Do you have difficul ty dressing or bathing No 05/20/2015 4:13 PM EDT Katherine Mendez Ma No [facility] 05-20-2015 Because of a physica l, mental, or emotional condition, do you have difficulty doing errands alone such as visiting a physician's office or shopping No 05/20/2015 4:13 PM EDT Katherine Mendez Ma No [facility] Mental Status Date Assessment Result Facility 05-20-2015 Because of a physica l, mental, or emotional condition, do you have serious difficulty concentrating, remembering, or making decisions No 05/20/2015 4:13 PM EDT Katherine Mendez Ma No [facility] Clinical Notes 03-17-2016 to 08-20-2025 Telephone Encounter - Hermilo Mohamud LPN - 06/30/2025 1:17 PM EDTTelephone Encounter - Hermilo Mohamud LPN - 06/30/2025 1:17 PM EDTMGregory Milan MD - 06/28/2025 3:19 PM EDT Note Date & Type Note Facility 08-20-2025 Note HNO ID: [id number] Author: HERMILO MOHAMUD LPN Service: ? Author Type: Licensed Nurse Type: Progress Notes Filed: 08/20/2025 08:17 Note Text: Scan on 08/19/2025 6:14 PM by Irma Romero PA-C: Consultation - PT/OT/Speech [facility] 07-17-2025 Note HNO ID: [id number] Author: DOLLY CARDOZA MA Service: ? Author Type: Sourcing Analyst Type: Progress Notes Filed: 07/17/2025 14:21 Note Text: Scan on 07/17/2025 10:27 AM by Irma Romero PADilipC: [employer] [facility] 07-15-2025 Note HNO ID: [id number] Author: DOLLY CARDOZA MA Service: ? Author Type: Sourcing Analyst Type: Progress Notes Filed: 07/15/2025 15:28 Note Text: Scan on 07/15/2025 10:36 AM by Provider, LINDSEY Solis: JAYMIE [facility] 07-11-2025 Note HNO ID: [id number] Author: VANESSA BERG PA-C Service: ? Author Type: Physician Recreational Leader Type: Progress Notes Filed: 07/11/2025 13:53 Note Text: Chief Complaint Patient presents with: Follow Up: Left leg edema and neuropathy HPI Kate Coffey is a 69 year old female who presents here today for recheck. Edema: - Notable improvement in edema; able to visualize patellae bilaterally. - Recent increase in spironolactone dosage. - Kate is engaging in pool therapy. - Recent blood work reportedly normal. - Increased urinary frequency; Kate is maintaining hydration. - Kate is consuming bananas and potatoes to maintain potassium levels; prefers dietary intake over supplements. Neuropathy: - Previously unable to perceive vibrations; now Kate reports improved sensation. - Able to feel sharp objects when ambulating. - Kate has an upcoming podiatry appointment in July. Diabetes: - Recent elevated glucose level attributed to consuming a slushie at a class reunion; Kate typically does not consume alcohol. Past medical history, appointments, medications, allergies reviewed. 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 Essential hypertension Fibromyalgia 06/01/2021 Hemangioma of liver 09/18/2023 Right lob: MRI 09/2023 Hirsutism Migraine Mixed hyperlipidemia Obesity, Class III, BMI 40-49.9 (morbid obesity) ([facility]) 12/12/2017 Pancreatic cyst ([facility]) 09/18/2023 MRI: 09/2023 needs repeat imaging in 09/2024 Plantar fasciitis Polyarthralgia 09/26/[address] Montenegro Rheumatoid arthritis involving multiple sites (HCC) 06/01/2021 Dr. Quigley Well adult exam 12/02/2020 Last done: 02/27/2019 Previous Surgical History PAST SURGICAL HISTORY Procedure Laterality Date CARPAL TUNNEL Right 09/28/2018 COLONOSCOPY 02/2016 repeat 5 years COLONOSCOPY FLX DX W/COLLJ SPEC WHEN PFRMD 05/09/2013 Colonoscopy COLONOSCOPY FLX DX W/COLLJ SPEC WHEN PFRMD 06/30/2021 PAST SURGICAL HISTORY OF heel spur PAST SURGICAL HISTORY OF wisdom teeth Family History FAMILY HISTORY Problem Relation Age of Onset other (meningitis) Mother encephalitis other (bladder cancer) Father Diabetes Sister Heart Sister AICD Detached Retina Brother Diabetes Brother Colon Polyps Brother COPD Brother Diabetes Maternal Grandmother Heart Maternal Grandmother Diabetes Paternal Grandmother Diabetes Paternal Grandfather Patient Allergies ALLERGIES Allergen Reactions Dolobid [Diflunisal] Rash Current Medications Current Outpatient Medications on File Prior to Visit Medication Sig lisinopril (PRINIVIL) 10 mg tablet Take 1 tablet by mouth once daily. predniSONE (DELTASONE) 10 mg tablet Take 1 tablet by mouth every 6 hours as needed (arthritis flare). atorvastatin (LIPITOR) 10 mg tablet Take 1 tablet by mouth once daily. spironolactone (ALDACTONE) 25 mg tablet Take 1 tablet by mouth once daily. albuterol HFA (PROVENTIL HFA, VENTOLIN HFA) 90 mcg/actuation inhaler Inhale 2 puffs as instructed every 6 hours as needed for wheezing/shortness of breath. hydrOXYchloroQUINE (PLAQUENIL) 200 mg tablet Take by mouth once daily. mometasone (NASONEX) 50 mcg/actuation nasal spray Use 2 Sprays in the nose once daily. Rinse mouth after use. MAGNESIUM ORAL Take by mouth as directed. BIOTIN ORAL Take by mouth. DULoxetine (CYMBALTA) 30 mg capsule Take 30 mg by mouth once daily. METHOTREXATE ORAL Take 5 mg by mouth. Take 1 tablet weekly calcium citrate-vitamin D3 (CALCIUM CITRATE + D) 315-200 mg-unit tab Take 1 tablet by mouth twice daily with meals. ascorbic acid, vitamin C, (VITAMIN C) 500 mg tablet Take 500 mg by mouth once daily. aspirin, enteric coated (ASPIRIN, ENTERIC COATED) 81 mg EC tablet Take 81 mg by mouth once daily. multivitamin tablet Take 1 tablet by mouth once daily. acetaminophen (TYLENOL) 500 mg tablet Take 500 mg by mouth daily at bedtime. TURMERIC PO Take by mouth. (Patient not taking: Reported on 06/27/2025) folic acid 1 mg tablet Take 1 mg by mouth once daily. Take 2 tablets daily (Patient not taking: Reported on 12/25/2024) No current facility-administered medications on file prior to visit. Social History SOCIAL HISTORY[1] Review of Symptoms REVIEW OF SYSTEMS Genitourinary: (+) increased urinary frequency Musculoskeletal: (+) lower extremity swelling SEE HPI EXAM: BP 110/70 (BP Site: Left Arm, BP Positio (more content not included)... [facility] 06-30-2025 Telephone encounter Note Patient notified of results and provider's instructions. Patient verbalizes understanding. Pt will come to the lab at the end of this week. Hermilo Mohamud LPN [facility] 06-30-2025 Miscellaneous Notes Patient notified of results and provider's instructions. Patient verbalizes understanding. Pt will come to the lab at the end of this week. Hermilo Mohamud LPN Urine no longer shows blood and no infection. They did her bloodwork too early. I still would like that end of this week with being on the new dose of spironolactone. New order placed. Thanks. documented in this encounter [facility] 06-30-2025 Telephone encounter Note Urine no longer shows blood and no infection. They did her bloodwork too early. I still would like that end of this week with being on the new dose of spironolactone. New order placed. Thanks. [facility] 06-28-2025 Note HNO ID: [id number] Author: GREGORY NINO MD Service: ? Author Type: Physician Type: Progress Notes Filed: 06/28/2025 15:25 Note Text: [facility] Subjective Kate Coffey is a 69 year old female. Patient presents with: left shoulder pain: X 1 day Shoulder pain: Duration: started last night Location: Lateral left shoulder Character: sharp, tight Radiation: No. Aggravating: limited ability to move, not bothered by neck movement. May have been triggered having her shoulder squeezed in a chair during a pedicure Relieving: Pain relievers: Prednisone. Currently off Plaquenil for URI and elevated liver enzymes Associated: History of RA, had similar pain in the right shoulder in January Pertinent negatives: Denies numbness, weakness, known injury, fever Review of Systems Objective BP 136/82 Pulse 94 Temp 36.8 ?C (98.3 ?F) (Tympanic) Resp 18 Wt 103.7 kg (228 lb 9.9 oz) SpO2 99% BMI 43.73 kg/m? Physical Exam Constitutional: General: She is not in acute distress. Cardiovascular: Rate and Rhythm: Normal rate and regular rhythm. Pulmonary: Effort: Pulmonary effort is normal. Breath sounds: Normal breath sounds. Musculoskeletal: Left elbow: No swelling. Normal range of motion. No tenderness. Cervical back: Neck supple. No tenderness. Comments: SHOULDER: left compared to right. No deformity or swelling. Palpation of clavicle non-tender, AC joint tender, glenohumeral joint tender anterior joint. ROM: limited abduction or flexion due to pain. Lymphadenopathy: Cervical: No cervical adenopathy. Neurological: Mental Status: She is alert. {ASSESSMENT/PLAN: 1. Acute pain of left shoulder - ICD9: 719.41, ICD10: M25.512 (primary diagnosis) 2. Rheumatoid arthritis involving multiple sites, unspecified whether rheumatoid factor present (HCC) - ICD9: 714.0, ICD10: M06.9 She is here requesting refill of prednisone which she has on hand for as needed use but only has a few left for the weekend. She saw her cooler servicer earlier this week. - PREDNISONE 10 MG TABLET Follow-up with worsening symptoms or failure to improve. Gregory Nino MD Differential Diagnoses - Left shoulder bursitis/rheumatoid arthritis is more likely for the following reason(s): suggested by HANDP - Fracture or dislocation is less likely for the following reason(s): HANDP not suggestive Additional Tests or Interventions The following testing was considered but ultimately not selected after discussion with patient/family: X-ray deferred without injury but can be performed if symptoms or not improving. Procedures [facility] 06-28-2025 History of Present illness Narrative [facility] Subjective Kate Coffey is a 69 year old female. Patient presents with: left shoulder pain: X 1 day Shoulder pain: Duration: started last night Location: Lateral left shoulder Character: sharp, tight Radiation: No. Aggravating: limited ability to move, not bothered by neck movement. May have been triggered having her shoulder squeezed in a chair during a pedicure Relieving: Pain relievers: Prednisone. Currently off Plaquenil for URI and elevated liver enzymes Associated: History of RA, had similar pain in the right shoulder in January Pertinent negatives: Denies numbness, weakness, known injury, fever Review of Systems Objective BP 136/82 Pulse 94 Temp 36.8 C (98.3 F) (Tympanic) Resp 18 Wt 103.7 kg (228 lb 9.9 oz) SpO2 99% BMI 43.73 kg/m Physical Exam Constitutional: General: She is not in acute distress. Cardiovascular: Rate and Rhythm: Normal rate and regular rhythm. Pulmonary: Effort: Pulmonary effort is normal. Breath sounds: Normal breath sounds. Musculoskeletal: Left elbow: No swelling. Normal range of motion. No tenderness. Cervical back: Neck supple. No tenderness. Comments: SHOULDER: left compared to right. No deformity or swelling. Palpation of clavicle non-tender, AC joint tender, glenohumeral joint tender anterior joint. ROM: limited abduction or flexion due to pain. Lymphadenopathy: Cervical: No cervical adenopathy. Neurological: Mental Status: She is alert. {ASSESSMENT/PLAN: 1. Acute pain of left shoulder - ICD9: 719.41, ICD10: M25.512 (primary diagnosis) 2. Rheumatoid arthritis involving multiple sites, unspecified whether rheumatoid factor present (HCC) - ICD9: 714.0, ICD10: M06.9 She is here requesting refill of prednisone which she has on hand for as needed use but only has a few left for the weekend. She saw her cooler servicer earlier this week. - PREDNISONE 10 MG TABLET Follow-up with worsening symptoms or failure to improve. Gregory Nino MD Differential Diagnoses - Left shoulder bursitis/rheumatoid arthritis is more likely for the following reason(s): suggested by H&P - Fracture or dislocation is less likely for the following reason(s): H&P not suggestive Additional Tests or Interventions The following testing was considered but ultimately not selected after discussion with patient/family: X-ray deferred without injury but can be performed if symptoms or not improving. Procedures documented in this encounter [facility] 06-27-2025 History of Present illness Narrative Images from the original note were not included. Kate Coffey is a 69 year old female here for a Medicare wellness visit. Medicare Health Risk Assessment General Health Good Exercise: Minutes/Day 10 min Exercise: Days/Week 6 days Alcohol: Daily Use Monthly or less Alcohol: Drinks/Day 1 or 2 Alcohol: 6 or more drinks Never Feel off balance sometimes Concerns: Teeth/Dentures no Concerns: Sexual function Low desire Troubled by feelings sometimes Frequency: Eating healthy diet yes ADLs requiring help no Safety precautions in home/vehicle no Smoke, vape, chews tobacco no Difficulty hearing no Difficulty seeing no Current Providers Specialists: I have reviewed specialist-related care of the patient in the medical record. Medical/Family history review Reviewed and updated problem list, medical/surgical/family/social history, medications, and allergies. Opioid use review Opioid Medications (last 90 days) No data to display Anxiety/Depression screening PHQ-9 Score: 5 (Mild Depression) GABRIELA-7 Score: 4 (Minimal Anxiety) Recommendation: continuing current treatment plan Cognitive screening Mini Cog Score: 5 Cognitive screening reviewed and No further action needed (score 3-5). Functional Observation Was the patient's Timed Up & Go test unsteady or >= 12 seconds? No Advance Care Planning Patient did not wish or was not able to name a surrogate decision maker or provide an advance care plan Measurements BP 110/76 (BP Site: Left Arm, BP Position: Sitting, BP Cuff Size: Large Adult) Pulse 75 Temp 36.3 C (97.3 F) Resp 18 Ht 154 cm (5' 0.63) Wt 103.9 kg (229 lb) SpO2 95% BMI 43.80 kg/m Vision Screening: Follows with optometry/ophthalmology Assessment/Plan Medicare annual wellness visit, subsequent (Z00.00) - Counseled on healthy diet and regular exercise - Fall avoidance information provided - Personalized prevention plan provided Chief Complaint Patient presents with: Yearly Exam HPI Kate Coffey is a 69 year old female who presents here today for extensive exam. Patient with history of DM2, HTN, HLP, RA and those as below. Lower Extremity Edema: - Kate noticed edema in the feet this week; describes feet as swollen. - Sensation of tightness in legs, similar to wearing compression socks, x2 months. - Kate has no previous episodes of edema. - Kate has no increase in dietary sodium intake. Earwax Impaction: - Recent earwax impaction in February, treated at urgent care with ear canal cleaning. - Kate reports hearing is currently okay. Pancreatic Cyst: - Kate is due for another MRI of the pancreatic cyst in September. Fibromyalgia: - Chronic condition; Kate experiences occasional cough attributed to fibromyalgia. Rheumatoid Arthritis: - Chronic condition; Kate was previously on methotrexate but discontinued due to elevated liver enzymes. Past medical history, appointments, medications, allergies reviewed. 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 Essential hypertension Fibromyalgia 06/01/2021 Hemangioma of liver 09/18/2023 Right lob: MRI 09/2023 Hirsutism Migraine Mixed hyperlipidemia Obesity, Class III, BMI 40-49.9 (morbid obesity) ([facility]) 12/12/2017 Pancreatic cyst (HCC) 09/18/2023 MRI: 09/2023 needs repeat imaging in 09/2024 Plantar fasciitis Polyarthralgia 09/26/[address] Montenegro Rheumatoid arthritis involving multiple sites (HCC) 06/01/2021 Dr. Quigley Well adult exam 12/02/2020 Last done: 02/27/2019 Previous Surgical History PAST SURGICAL HISTORY Procedure Laterality Date CARPAL TUNNEL Right 09/28/2018 COLONOSCOPY 02/2016 repeat 5 years COLONOSCOPY FLX DX W/COLLJ SPEC WHEN PFRMD 05/09/2013 Colonoscopy COLONOSCOPY FLX DX W/COLLJ SPEC WHEN PFRMD 06/30/2021 PAST SURGICAL HISTORY OF heel spur PAST SURGICAL HISTORY OF wisdom teeth Family History FAMILY HISTORY Problem Relation Age of Onset other (meningitis) Mother encephalitis other (bladder cancer) Father Diabetes Sister Heart Sister AICD Detached Retina Brother Diabetes Brother Colon Polyps Brother COPD Brother Diabetes Maternal Grandmother Heart Maternal Grandmother Diabetes Paternal Grandmother Diabetes Paternal Grandfather Patient Allergies ALLERGIES Allergen Reactions Dolobid [Diflunisal] Rash Current Medications Current Outpatient Medications on File Prior to Visit Medication Sig albuterol HFA (PROVENTIL HFA, VENTOLIN HFA) 90 mcg/actuation inhaler Inhale 2 puffs as instructed every 6 hours as needed for wheezing/shortness of breath. benzonatate (TESSALON PERLE) 100 mg capsule Take 1 capsule by mouth three times a day as needed for cough for up to 7 days. hydrOXYchloroQUINE (PLAQUENIL) 200 mg tablet Take by mouth once daily. lisinopril (PRINIVIL) 10 mg tablet Take 1 tablet by mouth once daily. atorvastatin (LIPITOR) 10 mg tablet Take 1 tablet by mouth once daily. spironolactone (ALDACTONE) 25 mg tablet Take 0.5 tablets by mouth once daily. mometasone (NASONEX) 50 mcg/actuation nasal spray Use 2 Sprays in the nose once daily. Rinse mouth after use. (Patient taking differently: Use 2 sprays in the nose once daily. Rinse mouth after use. Taking saline otc) MAGNESIUM ORAL Take by mouth as directed. BIOTIN ORAL Take by mouth. predniSONE (DELTASONE) 2.5 mg tablet Take 1 tablet by mouth once daily. Take ten tabs by mouth on day one and reduce by one a day till done. DULoxetine (CYMBALTA) 30 mg capsule Take 30 mg by mouth once daily. METHOTREXATE ORAL Take 5 mg by mouth. Take 1 tablet weekly (Patient taking differently: Take 5 mg by mouth. Take 1 tablet weekly.. pt is holding) calcium citrate-vitamin D3 (CALCIUM CITRATE + D) 315-200 mg-unit tab Take 1 tablet by mouth twice daily with meals. ascorbic acid, vitamin C, (VITAMIN C) 500 mg tablet Take 500 mg by mouth once daily. aspirin, enteric coated (ASPIRIN, ENTERIC COATED) 81 mg EC tablet Take 81 mg by mouth once daily. multivitamin tablet Take 1 tablet by mouth once daily. acetaminophen (TYLENOL) 500 mg tablet Take 500 mg by mouth daily at bedtime. TURMERIC PO Take by mouth. (Patient not taking: Reported on 06/27/2025) folic acid 1 mg tablet Take 1 mg by mouth once daily. Take 2 tablets daily (Patient not taking: Reported on 12/25/2024) No current facility-administered medications on file prior to visit. Social History SOCIAL HISTORY[1] Review of Symptoms REVIEW OF SYSTEMS GENERAL: No weight loss, malaise or fevers HEENT: No changes in hearing or vision, no nose bleeds or other nasal problems NECK: Negative for lumps, goiter, pain and significant neck swelling RESPIRATORY: Negative for cough, hemoptysis, wheezing, COPD, dyspnea or shortness of breath CARDIOVASCULAR: +leg edema. Negative for chest pain, leg swelling, CHF or palpitations GI: Negative for abdominal discomfort, blood in stools or black stools, change in bowel habit, heart burn, nausea, vomiting : No history of dysuria, frequency or incontinence MUSCULOSKELETAL: stable SKIN: Negative for lesions, rash, and itching PSYCH: Negative for sleep disturbance, mood disorder and recent psychosocial stressors HEMATOLOGY/LYMPHOLOGY: Negative for prolonged bleeding, bruising easily or swollen nodes ENDOCRINE: Negative for cold or heat intolerance, polyuria, polydipsia and goiter NEURO: No history of headaches, syncope, paralysis, seizures or tremors SEE HPI EXAM: BP 110/76 (BP Site: Left Arm, BP Position: Sitting, BP Cuff Size: Large Adult) Pulse 75 Temp 36.3 C (97.3 F) Resp 18 Ht 154 cm (5' 0.63) Wt 103.9 kg (229 lb) SpO2 95% BMI 43.80 kg/m General Appearance: Well appearing, alert, in no acute distress, well-hydrated, well nourished. Obese. Skin: Skin color, texture, turgor normal, no suspicious rashes or lesions. Head: Normocephalic, no masses, lesions, tenderness or abnormalities. Eyes: Anicteric sclera. Pupils are equally round and reactive to light. Extraocular movements are intact. . Ears: External ears normal, canals clear, TMs pearly bills. Nose/Sinuses: Nares normal, septum midline, mucosa normal, no drainage or sinus tenderness. Oropharynx: Lips, mucosa, and tongue normal, teeth and gums normal, oropharynx normal. Neck: Supple, no adenopathy; thyroid symmetric, normal size, no bruits. Lungs: Lungs clear to auscultation. No wheezing, rhonchi, rales.. Heart: RRR without murmur, gallop, or rubs. No ectopy. Abdomen: Normal abdominal exam, Abdomen soft, non-tender. Bowel sounds normal. No masses, organomegaly. Extremities: 1+ edema bilateral. . Peripheral Pulses: Normal. Neurologic: Gait normal. Reflexes normal and symmetric. Feet:Shoes and socks removed, No deformities, ulcers, calluses, normal distal pulses, sensitive to 10 gm monofilament, and vibratory perception absent bilaterally. Health Maintenance List RSV Vaccine(1 - Risk 60-74 years 1-dose series) Never done Cervical Cancer Screening due on 03/16/2019 Influenza Vaccine(1) due on 06/16/2025 Diabetic Foot Exam due on 06/26/2025 HbA1C due on 12/21/2025 Depression Screening due on 12/25/2025 Anxiety Screening due on 12/25/2025 Mammogram Screening due on 12/27/2025 Dilated Retinal Exam due on 12/30/2025 Urine Albumin:Creatinine Ratio due on 06/23/2026 LDL Cholesterol due on 06/23/2026 Annual PCP Team Chronic Disease Visit due on 06/27/2026 Colorectal Cancer Screening due on 06/30/2026 DTaP,Tdap,Td Vaccine(4 - Td or Tdap) due on 06/01/2031 Bone Density Screening Completed Advance Directive Discussion Completed Hepatitis C Screening Completed Shingrix Vaccine Completed Pneumococcal Vaccine: 50+ Completed Data reviewed Latest Ref Rng 06/23/2025 Color Yellow Dark Yellow ! Clarity Clear Clear Glucose, Urine Negative Negative Bilirubin, Urine Negative Negative Ketones, Urine Negative Negative Specific [place], Ur 1.005 - 1.030 1.033 (H) Hemoglobin/Blood,Ur Negative Negative pH, Urine 5.0 - 8.0 5.5 Protein, Urine Negative 1+ ! Urobilinogen 0.2-1.0 EU/dL 0.2 EU/dL Nitrites Negative Negative Leukest Negative Negative WBC, Urine 0-5 /HPF 0-5 /HPF RBC, Urine 0-2 /HPF 6-10 /HPF ! Bacteria Negative /HPF Negative Epithelial Cells /HPF None Seen Hyaline Cast 0 /LPF 1-3 /LPF ! Protein, Total 6.3 - 8.0 g/dL 6.9 Albumin 3.9 - 4.9 g/dL 4.0 Calcium 8.5 - 10.2 mg/dL 9.1 Bilirubin, Total 0.2 - 1.3 mg/dL 0.6 Alkaline Phosphatase 34 - 123 U/L 63 AST 13 - 35 U/L 32 ALT 7 - 38 U/L 47 (H) Glucose 74 - 99 mg/dL 141 (H) BUN 7 - 21 mg/dL 12 Creatinine 0.58 - 0.96 mg/dL 0.83 Sodium 136 - 144 mmol/L 142 Potassium 3.7 - 5.1 mmol/L 4.0 Chloride 98 - 107 mmol/L 104 CO2 22 - 30 mmol/L 23 Anion Gap 8 - 15 mmol/L 15 eGFR >=60 mL/min/1.73m 77 Total Cholesterol, Nonfasting <200 mg/dL 108 Triglycerides, Nonfasting <150 mg/dL 85 HDL Cholesterol, Nonfasting >39 mg/dL 44 LDL Cholesterol Calculated, Nonfasting <100 mg/dL 47 Non HDL Cholesterol, Nonfasting <130 mg/dL 64 VLDL Cholesterol, Nonfasting <30 mg/dL 12 Total Chol/HDL Ratio, Nonfasting <5.10 mg/dL 2.45 LDL/HDL Ratio, Nonfasting <2.54 mg/dL 1.07 Creatinine, Ur Random (UCRR) 20.0 - 300.0 mg/dL 204.7 Albumin, Urine Random mg/L 29.9 Albumin/Creat Ratio <30 mg/g 15 Hemoglobin A1C 4.3 - 5.6 % 5.7 (H) Estimated Average Glucose mg/dL 117 Legend: ! Abnormal (H) High Assessment and Plan 1. Medicare annual wellness visit, initial (Z00.00) 2. Encounter for Medicare annual wellness exam (Z00.00) - Completed initial Medicare annual wellness visit. - Discussed home safety precautions, including use of seatbelts, smoke detectors, and installation of hand bars in the bathroom. - Advised removal of loose rugs to prevent falls. - Discussed importance of flu and RSV vaccines; patient to consider vaccination after recovery from current illness. 3. Advance directive discussed with patient (Z71.89) - Discussed advance directive; patient has packets but has not completed them yet. 4. Essential hypertension (I10) - Blood pressure well controlled. - Continue current management. 5. Mixed hyperlipidemia (E78.2) - Cholesterol levels reviewed: LDL 47 mg/dL, HDL 44 mg/dL, triglycerides 85 mg/dL, total cholesterol 108 mg/dL; all within optimal range. 6. Controlled type 2 diabetes mellitus without complication, without long-term current use of insulin ([facility]) (E11.9) 7. Type 2 diabetes mellitus with diabetic neuropathy, without long-term current use of insulin ([facility]) (E11.40) - HbA1c slightly elevated at 5.7%. - Early signs of neuropathy noted on foot exam. - Educated patient on balancing fruit intake with healthy fats and proteins to manage blood glucose levels. - Referred to podiatry for further evaluation of neuropathy and foot swelling. 8. Fibromyalgia (M79.7) - Chronic condition; no changes in management at this time. 9. Pancreatic cyst ([facility]) (K86.2) - MRI due in September; order placed for scheduling. 10. Rheumatoid arthritis involving multiple sites, unspecified whether rheumatoid factor present ([facility]) (M06.9) - Under management by Dr. Moran; methotrexate discontinued due to elevated liver enzymes. - Follow-up with Dr. Moran in 4 weeks. 11. Obesity, Class III, BMI 40-49.9 (morbid obesity) ([facility]) (E66.813) - BMI in the range of 40-49.9. - Encouraged continuation of healthy diet and weight management. 12. Hemangioma of liver (D18.03) - MRI in september 13. Well woman exam (Z01.419) - Last cervical cancer screening in 2018; recommended one final screening. - Consult placed to gynecology for cervical cancer screening. 14. Microscopic hematuria (R31.29) - Blood noted in urine; no symptoms of UTI reported. - Repeat urinalysis and urine culture ordered to rule out asymptomatic UTI. follow up in 2 weeks for recheck. Vanessa Berg PA-C I spent a total of 50 minutes on the date of the service which included preparing to see the patient, [id number] patient care, completing clinical documentation, obtaining and/or reviewing separately obtained history, performing a medically appropriate examination, counseling and educating the patient/family/caregiver, ordering medications, tests, or procedures, communicating with other HCPs (not separately reported), and communicating results to the patient/family/caregiver. Recording using [employer] software for draft documentation of the visit was discussed with the patient/authorized employee's representative; all questions welcomed and answered. Patient/authorized employee's representative agreed to proceed [1] Social History Tobacco Use Smoking status: Never Smokeless tobacco: Never Vaping Use Vaping status: Never Used Substance Use Topics Alcohol use: Not Currently Comment: rarely Drug use: No documented in this encounter [facility] 06-27-2025 Note HNO ID: [id number] Author: VANESSA BERG PA-C Service: ? Author Type: Physician Recreational Leader Type: Progress Notes Filed: 06/27/2025 13:42 Note Text: Kate Coffey is a 69 year old female here for a Medicare wellness visit. Medicare Health Risk Assessment General Health Good Exercise: Minutes/Day 10 min Exercise: Days/Week 6 days Alcohol: Daily Use Monthly or less Alcohol: Drinks/Day 1 or 2 Alcohol: 6 or more drinks Never Feel off balance sometimes Concerns: Teeth/Dentures no Concerns: Sexual function Low desire Troubled by feelings sometimes Frequency: Eating healthy diet yes ADLs requiring help no Safety precautions in home/vehicle no Smoke, vape, chews tobacco no Difficulty hearing no Difficulty seeing no Current Providers Specialists: I have reviewed specialist-related care of the patient in the medical record. Medical/Family history review Reviewed and updated problem list, medical/surgical/family/social history, medications, and allergies. Opioid use review Opioid Medications (last 90 days) No data to display Anxiety/Depression screening PHQ-9 Score: 5 (Mild Depression) GABRIELA-7 Score: 4 (Minimal Anxiety) Recommendation: continuing current treatment plan Cognitive screening Mini Cog Score: 5 Cognitive screening reviewed and No further action needed (score 3-5). Functional Observation Was the patient's Timed Up AND Go test unsteady or >= 12 seconds? No Advance Care Planning Patient did not wish or was not able to name a surrogate decision maker or provide an advance care plan Measurements BP 110/76 (BP Site: Left Arm, BP Position: Sitting, BP Cuff Size: Large Adult) Pulse 75 Temp 36.3 ?C (97.3 ?F) Resp 18 Ht 154 cm (5' 0.63) Wt 103.9 kg (229 lb) SpO2 95% BMI 43.80 kg/m? Vision Screening: Follows with optometry/ophthalmology Assessment/Plan Medicare annual wellness visit, subsequent (Z00.00) - Counseled on healthy diet and regular exercise - Fall avoidance information provided - Personalized prevention plan provided Chief Complaint Patient presents with: Yearly Exam HPI Kate Coffey is a 69 year old female who presents here today for extensive exam. Patient with history of DM2, HTN, HLP, RA and those as below. Lower Extremity Edema: - Kate noticed edema in the feet this week; describes feet as swollen. - Sensation of tightness in legs, similar to wearing compression socks, x2 months. - Kate has no previous episodes of edema. - Kate has no increase in dietary sodium intake. Earwax Impaction: - Recent earwax impaction in February, treated at urgent care with ear canal cleaning. - Kate reports hearing is currently okay. Pancreatic Cyst: - Kate is due for another MRI of the pancreatic cyst in September. Fibromyalgia: - Chronic condition; Kate experiences occasional cough attributed to fibromyalgia. Rheumatoid Arthritis: - Chronic condition; Kate was previously on methotrexate but discontinued due to elevated liver enzymes. Past medical history, appointments, medications, allergies reviewed. 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 Essential hypertension Fibromyalgia 06/01/2021 Hemangioma of liver 09/18/2023 Right lob: MRI 09/2023 Hirsutism Migraine Mixed hyperlipidemia Obesity, Class III, BMI 40-49.9 (morbid obesity) (HCC) 12/12/2017 Pancreatic cyst (HCC) 09/18/2023 MRI: 09/2023 needs repeat imaging in 09/2024 Plantar fasciitis Polyarthralgia 09/26/[address] Montenegro Rheumatoid arthritis involving multiple sites ([facility]) 06/01/2021 Dr. Quigley Well adult exam 12/02/2020 Last done: 02/27/2019 Previous Surgical History PAST SURGICAL HISTORY Procedure Laterality Date CARPAL TUNNEL Right 09/28/2018 COLONOSCOPY 02/2016 repeat 5 years COLONOSCOPY FLX DX W/COLLJ SPEC WHEN PFRMD 05/09/2013 Colonoscopy COLONOSCOPY FLX DX W/COLLJ SPEC WHEN PFRMD 06/30/2021 PAST SURGICAL HISTORY OF heel spur PAST SURGICAL HISTORY OF wisdom teeth Family History FAMILY HISTORY Problem Relation Age of Onset other (meningitis) Mother encephalitis other (bladder cancer) Father Diabetes Sister Heart Sister AICD Detached Retina Brother Diabetes Brother Colon Polyps Brother COPD Brother Diabetes Maternal Grandmother Heart Maternal Grandmother Diabetes Paternal Grandmother Diabetes Paternal Grandfather Patient Allergies (more content not included)... [facility] 06-23-2025 Note HNO ID: [id number] Author: DOLLY CARDOZA MA Service: ? Author Type: Sourcing Analyst Type: Progress Notes Filed: 06/23/2025 15:54 Note Text: Scan on 06/23/2025 2:38 PM by ProviderIrma PA-C: [facility] - CMP [ID [id number]] [facility] 06-23-2025 History of Present illness Narrative Scan on 06/23/2025 2:38 PM by Irma Romero PA-C: [facility] - CMP [ID [id number]] documented in this encounter [facility] 06-23-2025 History of Present illness Narrative Radiology Service Progress Note PATIENT NAME: Kate Coffey DATE OF SERVICE: June 23, 2025 TIME: 12:51 PM PATIENT IDENTITY VERIFICATION COMPLETED USING TWO (2) IDENTIFIERS: Name and Date of confirmed by patient verbally. FALL SCREENING: Has the patient had 2 falls in the last year or 1 fall with injury or currently using an Ambulatory Assistive Device (Walker, Cane, Wheelchair, Crutches, etc.)? No PATIENT GENDER DATA: Assigned female at . status: : No status: NO. PATIENT RELEVANT IMPLANT DATA REVIEWED: Yes PATIENT PRESENTS WITH AN IMPLANTABLE OR ATTACHED FIRESETTER: No RADIOLOGY DEPARTMENT: General X-ray: Exam(s) Completed: Chest X-Ray PERIPHERAL IV DATA: Not applicable SIGNED BY: RT Sheyla(Graham) June 23, 2025 12:51 PM documented in this encounter [facility] 06-23-2025 Note HNO ID: [id number] Author: DEIDRA ARCOS RT(R) Service: ? Author Type: Activity Assistant Type: Progress Notes Filed: 06/23/2025 13:00 Note Text: Radiology Service Progress Note PATIENT NAME: Kate Coffey DATE OF SERVICE: June 23, 2025 TIME: 12:51 PM PATIENT IDENTITY VERIFICATION COMPLETED USING TWO (2) IDENTIFIERS: Name and Date of confirmed by patient verbally. FALL SCREENING: Has the patient had 2 falls in the last year or 1 fall with injury or currently using an Ambulatory Assistive Device (Walker, Cane, Wheelchair, Crutches, etc.)? No PATIENT GENDER DATA: Assigned female at . status: : No status: NO. PATIENT RELEVANT IMPLANT DATA REVIEWED: Yes PATIENT PRESENTS WITH AN IMPLANTABLE OR ATTACHED FIRESETTER: No RADIOLOGY DEPARTMENT: General X-ray: Exam(s) Completed: Chest X-Ray PERIPHERAL IV DATA: Not applicable SIGNED BY: RT Sheyla(Graham) June 23, 2025 12:51 PM [facility] 06-23-2025 Note HNO ID: [id number] Author: LAURENT ROSE APRN.CIRCULAR KNIFE CUTTER MACHINE Service: ? Author Type: Nurse Practitioner Type: Progress Notes Filed: 06/23/2025 13:13 Note Text: URGENT CARE RAFAEL Coffey is a 69 year old female. Patient presents with: Chest Congestion: cough, green phlegm x 4 days HPI Nontoxic-appearing 69-year-old female presents urgent care chief complaint cough and chest congestion fatigue. Initially did have body aches chills low-grade fever sore throat headache that has improved. Most bothersome symptom today is cough. History of bronchitis. This feels similar. No chest pain shortness of breath pleuritic pain hemoptysis. Past medical history prescription medications allergies reviewed Review of Systems Constitutional: Negative for chills, diaphoresis, fatigue and fever. HENT: Negative for congestion, drooling, ear discharge, ear pain, rhinorrhea, sinus pressure, sinus pain, sneezing, sore throat and trouble swallowing. Eyes: Negative for pain, discharge, redness, itching and visual disturbance. Respiratory: Positive for cough. Negative for chest tightness, shortness of breath and wheezing. Cardiovascular: Negative for chest pain. Gastrointestinal: Negative for abdominal distention, abdominal pain, blood in stool, constipation, diarrhea, nausea and vomiting. Genitourinary: Negative for difficulty urinating and dysuria. Musculoskeletal: Negative for arthralgias, joint swelling, neck pain and neck stiffness. Skin: Negative for rash. Neurological: Negative for dizziness, weakness, numbness and headaches. Objective BP 124/66 Pulse 86 Temp 37.1 ?C (98.7 ?F) Resp 18 Wt 103.9 kg (229 lb 0.9 oz) SpO2 94% BMI 42.58 kg/m? Physical Exam Constitutional: Appearance: Normal appearance. HENT: Head: Normocephalic. Jaw: No trismus, tenderness, swelling or pain on movement. Nose: Congestion present. Mouth/Throat: Mouth: Mucous membranes are moist. Pharynx: Oropharynx is clear. Uvula midline. No oropharyngeal exudate or posterior oropharyngeal erythema. Eyes: Conjunctiva/sclera: Conjunctivae normal. Cardiovascular: Rate and Rhythm: Normal rate. Pulmonary: Effort: Pulmonary effort is normal. Breath sounds: Wheezing present. No rhonchi or rales. Abdominal: Palpations: Abdomen is soft. Tenderness: There is no abdominal tenderness. There is no guarding or rebound. Musculoskeletal: General: Normal range of motion. Cervical back: Normal range of motion and neck supple. No edema, erythema or rigidity. No pain with movement. Normal range of motion. Lymphadenopathy: Cervical: No cervical adenopathy. Skin: General: Skin is warm. Findings: No rash. Neurological: General: No focal deficit present. Mental Status: She is alert and oriented to person, place, and time. Mental status is at baseline. {ASSESSMENT/PLAN: 1. Acute cough - ICD9: 786.2, ICD10: R05.1 (primary diagnosis) - XR CHEST 2V FRONTAL/LAT 2. Viral illness - ICD9: 079.99, ICD10: B34.9 - Discussed viral etiology and rationale for treatment. - Symptomatic treatment with prn analgesia - Supportive care with fluids and rest IMPRESSION: No acute radiographic abnormality. No acute findings noted on chest x-ray. Treat as viral etiology. Patient was educated on supportive therapies. Patient will follow up with primary care provider as needed. Patient was instructed to immediately proceed to emergency room for any new, worsening, or symptoms lasting longer than anticipated. The patient's clinical presentation is otherwise unremarkable at this time. Based on exam and clinical finding, the patient is stable for discharge. Plan of care was discussed with patient. Patient verbalizes understanding and agrees to plan of care. This note was generated using BookBag software. It may contain errors in wording, punctuation, or spelling. Laurent Rose APRN.[facility] History and Record Review Clinical information obtained from an independent historian. History obtained from or confirmed by: parent. External record(s) reviewed: prior outpatient record. Disposition The patient was discharged. OTC Medications were advised: Procedures [facility] 06-23-2025 History of Present illness Narrative URGENT CARE RAFAEL Ashby Kate Coffey is a 69 year old female. Patient presents with: Chest Congestion: cough, green phlegm x 4 days HPI Nontoxic-appearing 69-year-old female presents urgent care chief complaint cough and chest congestion fatigue. Initially did have body aches chills low-grade fever sore throat headache that has improved. Most bothersome symptom today is cough. History of bronchitis. This feels similar. No chest pain shortness of breath pleuritic pain hemoptysis. Past medical history prescription medications allergies reviewed Review of Systems Constitutional: Negative for chills, diaphoresis, fatigue and fever. HENT: Negative for congestion, drooling, ear discharge, ear pain, rhinorrhea, sinus pressure, sinus pain, sneezing, sore throat and trouble swallowing. Eyes: Negative for pain, discharge, redness, itching and visual disturbance. Respiratory: Positive for cough. Negative for chest tightness, shortness of breath and wheezing. Cardiovascular: Negative for chest pain. Gastrointestinal: Negative for abdominal distention, abdominal pain, blood in stool, constipation, diarrhea, nausea and vomiting. Genitourinary: Negative for difficulty urinating and dysuria. Musculoskeletal: Negative for arthralgias, joint swelling, neck pain and neck stiffness. Skin: Negative for rash. Neurological: Negative for dizziness, weakness, numbness and headaches. Objective BP 124/66 Pulse 86 Temp 37.1 C (98.7 F) Resp 18 Wt 103.9 kg (229 lb 0.9 oz) SpO2 94% BMI 42.58 kg/m Physical Exam Constitutional: Appearance: Normal appearance. HENT: Head: Normocephalic. Jaw: No trismus, tenderness, swelling or pain on movement. Nose: Congestion present. Mouth/Throat: Mouth: Mucous membranes are moist. Pharynx: Oropharynx is clear. Uvula midline. No oropharyngeal exudate or posterior oropharyngeal erythema. Eyes: Conjunctiva/sclera: Conjunctivae normal. Cardiovascular: Rate and Rhythm: Normal rate. Pulmonary: Effort: Pulmonary effort is normal. Breath sounds: Wheezing present. No rhonchi or rales. Abdominal: Palpations: Abdomen is soft. Tenderness: There is no abdominal tenderness. There is no guarding or rebound. Musculoskeletal: General: Normal range of motion. Cervical back: Normal range of motion and neck supple. No edema, erythema or rigidity. No pain with movement. Normal range of motion. Lymphadenopathy: Cervical: No cervical adenopathy. Skin: General: Skin is warm. Findings: No rash. Neurological: General: No focal deficit present. Mental Status: She is alert and oriented to person, place, and time. Mental status is at baseline. {ASSESSMENT/PLAN: 1. Acute cough - ICD9: 786.2, ICD10: R05.1 (primary diagnosis) - XR CHEST 2V FRONTAL/LAT 2. Viral illness - ICD9: 079.99, ICD10: B34.9 - Discussed viral etiology and rationale for treatment. - Symptomatic treatment with prn analgesia - Supportive care with fluids and rest IMPRESSION: No acute radiographic abnormality. No acute findings noted on chest x-ray. Treat as viral etiology. Patient was educated on supportive therapies. Patient will follow up with primary care provider as needed. Patient was instructed to immediately proceed to emergency room for any new, worsening, or symptoms lasting longer than anticipated. The patient's clinical presentation is otherwise unremarkable at this time. Based on exam and clinical finding, the patient is stable for discharge. Plan of care was discussed with patient. Patient verbalizes understanding and agrees to plan of care. This note was generated using BookBag software. It may contain errors in wording, punctuation, or spelling. Laurent Rose APRN.[facility] History and Record Review Clinical information obtained from an independent historian. History obtained from or confirmed by: parent. External record(s) reviewed: prior outpatient record. Disposition The patient was discharged. OTC Medications were advised: Procedures documented in this encounter [facility] 06-11-2025 Note HNO ID: [id number] Author: ?, ?, ? Service: ? Author Type: ? Type: Progress Notes Filed: 06/11/2025 08:51 Note Text: POPULATION HEALTH NAVIGATION OUTREACH Action/FYI Returned Call: voicemail left for caregiver. Left voicemail for patient to call back Reason for Outreach Returned Call/MyChart Patient Contacted: Unable or unnecessary to reach patient: Left message Navigation Signature: Abad Virkhyacinth June 11, 2025 8:49 AM [facility] 06-10-2025 Note HNO ID: [id number] Author: ?, ?, ? Service: ? Author Type: ? Type: Progress Notes Filed: 06/10/2025 14:25 Note Text: POPULATION HEALTH NAVIGATION OUTREACH Action/FYI - 0 HCC BP: Hypertension Reg KED (UACR AND EGFR) : Due soon on 06/19/2025 Called Patient: Left Voicemail AND Sent Mychart Reason for Outreach Care Gap/HCC or Scheduling Wellness Visits Care Gaps due: Controlling Blood Pressure KED Patient Contacted: Unable or unnecessary to reach patient: Left message MyChart message sent Navigation Signature: Abad Skinner June 10, 2025 2:17 PM [facility] 06-10-2025 History of Present illness Narrative POPULATION HEALTH NAVIGATION OUTREACH Action/ - 0 [facility] BP: Hypertension Reg KED (UACR & EGFR) : Due soon on 06/19/2025 Called Patient: Left Voicemail & Sent Mychart Reason for Outreach Care Gap/HCC or Scheduling Wellness Visits Care Gaps due: Controlling Blood Pressure KED Patient Contacted: Unable or unnecessary to reach patient: Left message [employer] message sent Navigation Signature: Abad Skinner June 10, 2025 2:17 PM documented in this encounter [facility] 06-10-2025 Note Patient Outreach (NE TNAV) KATE TATUM ([id number]) 1955 F Date Time Provider Department 06/10/25 LAURENT PAGAN During your visit today, we recorded the following information about you: Abad Skinner 06/10/2025 2:25 PM Signed POPULATION HEALTH NAVIGATION OUTREACH Action/ - 0 [facility] BP: Hypertension Reg KED (UACR AND EGFR) : Due soon on 06/19/2025 Called Patient: Left Voicemail AND Sent Mychart Reason for Outreach Care Gap/HCC or Scheduling Wellness Visits Care Gaps due: Controlling Blood Pressure KED Patient Contacted: Unable or unnecessary to reach patient: Left message MyChart message sent Navigation Signature: Abad Skinner June 10, 2025 2:17 PM Abad Skinner 06/11/2025 8:51 AM Signed POPULATION HEALTH NAVIGATION OUTREACH Action/FYI Returned Call: voicemail left for caregiver. Left voicemail for patient to call back Reason for Outreach Returned Call/Waldo Patient Contacted: Unable or unnecessary to reach patient: Left message Navigation Signature: Abad Skinner June 11, 2025 8:49 AM Allergies As of Date: 06/10/2025 Noted Allergy Reaction DOLOBID (DIFLUNISAL) 08/25/2005 2 - Rash Date Reviewed: 05/28/2025 Reviewed by: Ursula Medina MA - Fully Assessed Reason for Visit: Population Health Navigation Outreach [3910] Cmt: John Hall Prescriptions as of 06/11/2025 - hydrOXYchloroQUINE (PLAQUENIL) 200 mg tablet Take by mouth once daily. - lisinopril (PRINIVIL) 10 mg tablet Take 1 tablet by mouth once daily. - atorvastatin (LIPITOR) 10 mg tablet Take 1 tablet by mouth once daily. - spironolactone (ALDACTONE) 25 mg tablet Take 0.5 tablets by mouth once daily. - mometasone (NASONEX) 50 mcg/actuation nasal spray Use 2 Sprays in the nose once daily. Rinse mouth after use. - MAGNESIUM ORAL Take by mouth as directed. - BIOTIN ORAL Take by mouth. - predniSONE (DELTASONE) 2.5 mg tablet Take 1 tablet by mouth once daily. Take ten tabs by mouth on day one and reduce by one a day till done. - folic acid 1 mg tablet Take 1 mg by mouth once daily. Take 2 tablets daily - DULoxetine (CYMBALTA) 30 mg capsule Take 30 mg by mouth once daily. - METHOTREXATE ORAL Take 5 mg by mouth. Take 1 tablet weekly - calcium citrate-vitamin D3 (CALCIUM CITRATE + D) 315-200 mg-unit tab Take 1 tablet by mouth twice daily with meals. - ascorbic acid, vitamin C, (VITAMIN C) 500 mg tablet Take 500 mg by mouth once daily. - aspirin, enteric coated (ASPIRIN, ENTERIC COATED) 81 mg EC tablet Take 81 mg by mouth once daily. - multivitamin tablet Take 1 tablet by mouth once daily. - acetaminophen (TYLENOL) 500 mg tablet Take 500 mg by mouth daily at bedtime. Problem List As Of Date 06/10/2025 Noted Resolved Hirsutism [L68.0] Dysmetabolic syndrome X [E88.810] Mixed hyperlipidemia [E78.2] Plantar fasciitis [M72.2] Breast mass in female [N63.0] 04/01/2014 Abnormal mammogram [R92.8] 03/17/2016 03/31/2016 Apocrine cyst [L74.8] 03/31/2016 Essential hypertension [I10] Controlled type 2 diabetes mellitus without com*12/12/2017 Obesity, Class III, BMI 40-49.9 (morbid obesity*12/12/2017 Diabetic eye exam (HCC) [Z01.00, E11.9] 06/08/2018 Polyarthralgia [M25.50] 09/26/2018 Well adult exam [Z00.00] 12/02/2020 Rheumatoid arthritis involving multiple sites (*06/01/2021 Fibromyalgia [M79.7] 06/01/2021 Advance directive discussed with patient [Z71.8*07/06/2022 Bunion, right [M21.611] 06/26/2023 Hemangioma of liver [D18.03] 09/18/2023 Pancreatic cyst [K86.2] 09/18/2023 Encounter Status:Closed by ABAD SKINNER on 06/10/25 [facility] 05-28-2025 Note HNO ID: [id number] Author: GREGORY RINCON PA-C Service: ? Author Type: Physician Recreational Leader Type: Progress Notes Filed: 05/28/2025 18:14 Note Text: URGENT CARE RAFAEL Subjective Kate Coffey is a 69 year old female. Patient presents with: Knee Pain: Left knee pain started this morning HPI Left Knee Pain: - Acute onset of severe left knee pain, localized to the inferior patella, began this morning. - Aggravated by bending, particularly when getting out of the car. - No known trauma or falls. - History of recurrent left knee issues, including a previous ED visit for inability to bear weight, during which fluid was aspirated. - Last cortisone injection was 6 years ago. - Orthopedic consultation 6 years ago advised against knee surgery. - Uses a knee sleeve and applies lidocaine for pain management. - Denies hip pain. - Family history of bilateral knee replacements in father. 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 - Denies cough or emesis. Fibromyalgia: - Diagnosed in multiple joints, except the left knee. Diabetes: - Denies current medication use. Review of Systems Respiratory: (-) cough Gastrointestinal: (-) vomiting Musculoskeletal: (+) left knee pain, (-) hip pain Objective BP 168/88 Pulse 110 Temp 36.9 ?C (98.5 ?F) Resp 20 Wt 105.6 kg (232 lb 12.9 oz) SpO2 95% BMI 43.28 kg/m? Physical Exam General: No acute distress. CV: Regular rate and rhythm. Resp: Lungs clear to auscultation bilaterally. Abd: Active bowel sounds. MSK/Ext: Pain with lateral Bernardo test on left knee. 1. Chronic pain of left knee (M25.562) - Acute exacerbation of chronic left knee pain; X-ray demonstrates severe cartilage loss at the medial aspect of the left knee joint with moderate osteoarthritis, no fracture. - Pain localized to the inferior patella, worsened by bending; positive pain response with lateral Bernardo testing. - Start prednisone 50 mg PO daily. - Discussed X-ray findings and rationale for treatment options, including corticosteroid injection and Synvisc injection; explained that these may provide temporary relief but are not curative. - Discussed potential need for knee replacement if conservative measures fail; encouraged patient to consider this option if pain persists. - Referral to orthopedics for further evaluation and management. - Your left knee X-ray showed severe cartilage loss at the medial joint space and moderate osteoarthritis; no fracture was seen. - Prednisone 50 mg once daily has been prescribed and sent to your [facility]. - A referral has been submitted for you to see an orthopedic/hiv prevention specialist in the [facility] system (you may choose another provider if preferred) to review your X-ray and discuss further treatment options, including cortisone injections, Synvisc (hyaluronic acid) injections, or knee replacement. - Please review the printed paperwork for your prescription and referral details. MDM Procedures [facility] 05-28-2025 History of Present illness Narrative URGENT CARE RAFAEL Subjective Kate Davila Alexx is a 69 year old female. Patient presents with: Knee Pain: Left knee pain started this morning HPI Left Knee Pain: - Acute onset of severe left knee pain, localized to the inferior patella, began this morning. - Aggravated by bending, particularly when getting out of the car. - No known trauma or falls. - History of recurrent left knee issues, including a previous ED visit for inability to bear weight, during which fluid was aspirated. - Last cortisone injection was 6 years ago. - Orthopedic consultation 6 years ago advised against knee surgery. - Uses a knee sleeve and applies lidocaine for pain management. - Denies hip pain. - Family history of bilateral knee replacements in father. 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 - Denies cough or emesis. Fibromyalgia: - Diagnosed in multiple joints, except the left knee. Diabetes: - Denies current medication use. Review of Systems Respiratory: (-) cough Gastrointestinal: (-) vomiting Musculoskeletal: (+) left knee pain, (-) hip pain Objective BP 168/88 Pulse 110 Temp 36.9 C (98.5 F) Resp 20 Wt 105.6 kg (232 lb 12.9 oz) SpO2 95% BMI 43.28 kg/m Physical Exam General: No acute distress. CV: Regular rate and rhythm. Resp: Lungs clear to auscultation bilaterally. Abd: Active bowel sounds. MSK/Ext: Pain with lateral Bernardo test on left knee. 1. Chronic pain of left knee (M25.562) - Acute exacerbation of chronic left knee pain; X-ray demonstrates severe cartilage loss at the medial aspect of the left knee joint with moderate osteoarthritis, no fracture. - Pain localized to the inferior patella, worsened by bending; positive pain response with lateral Bernardo testing. - Start prednisone 50 mg PO daily. - Discussed X-ray findings and rationale for treatment options, including corticosteroid injection and Synvisc injection; explained that these may provide temporary relief but are not curative. - Discussed potential need for knee replacement if conservative measures fail; encouraged patient to consider this option if pain persists. - Referral to orthopedics for further evaluation and management. - Your left knee X-ray showed severe cartilage loss at the medial joint space and moderate osteoarthritis; no fracture was seen. - Prednisone 50 mg once daily has been prescribed and sent to your [facility]. - A referral has been submitted for you to see an orthopedic/hiv prevention specialist in the [facility] system (you may choose another provider if preferred) to review your X-ray and discuss further treatment options, including cortisone injections, Synvisc (hyaluronic acid) injections, or knee replacement. - Please review the printed paperwork for your prescription and referral details. MDM Procedures documented in this encounter [facility] 05-28-2025 History of Present illness Narrative Radiology Service Progress Note PATIENT NAME: Kate Coffey DATE OF SERVICE: May 28, 2025 TIME: 5:31 PM PATIENT IDENTITY VERIFICATION COMPLETED USING TWO (2) IDENTIFIERS: Name and Date of confirmed by patient verbally. FALL SCREENING: Has the patient had 2 falls in the last year or 1 fall with injury or currently using an Ambulatory Assistive Device (Walker, Cane, Wheelchair, Crutches, etc.)? No PATIENT GENDER DATA: Assigned female at . status: : No status: NO. PATIENT RELEVANT IMPLANT DATA REVIEWED: Yes PATIENT PRESENTS WITH AN IMPLANTABLE OR ATTACHED FIRESETTER: No RADIOLOGY DEPARTMENT: General X-ray: Exam(s) Completed: Lower Extremity X-Ray(s): Knee, AP / Lat / Tunne / Merchant Left PERIPHERAL IV DATA: Not applicable SIGNED BY: RT Georgiana(Graham) May 28, 2025 5:31 PM documented in this encounter [facility] 05-28-2025 Note HNO ID: [id number] Author: BLAIRE MEYER RT(Graham) Service: ? Author Type: Technologist Type: Progress Notes Filed: 05/28/2025 17:55 Note Text: Radiology Service Progress Note PATIENT NAME: Kate Coffey DATE OF SERVICE: May 28, 2025 TIME: 5:31 PM PATIENT IDENTITY VERIFICATION COMPLETED USING TWO (2) IDENTIFIERS: Name and Date of confirmed by patient verbally. FALL SCREENING: Has the patient had 2 falls in the last year or 1 fall with injury or currently using an Ambulatory Assistive Device (Walker, Cane, Wheelchair, Crutches, etc.)? No PATIENT GENDER DATA: Assigned female at . status: : No status: NO. PATIENT RELEVANT IMPLANT DATA REVIEWED: Yes PATIENT PRESENTS WITH AN IMPLANTABLE OR ATTACHED FIRESETTER: No RADIOLOGY DEPARTMENT: General X-ray: Exam(s) Completed: Lower Extremity X-Ray(s): Knee, AP / Lat / Tunne / Merchant Left PERIPHERAL IV DATA: Not applicable SIGNED BY: RT Georgiana(R) May 28, 2025 5:31 PM [facility] 03-27-2025 Note HNO ID: [id number] Author: HERMILO MOHAMUD LPN Service: ? Author Type: LICENSED NURSE Type: Progress Notes Filed: 03/27/2025 07:32 Note Text: Scan on 03/26/2025 6:14 PM by ProviderIrma PA-C: Hematology Scan on 03/26/2025 7:09 PM by Provider External PA-C: Chemistry [facility] 03-27-2025 History of Present illness Narrative Scan on 03/26/2025 6:14 PM by ProviderIrma PA-C: Hematology Scan on 03/26/2025 7:09 PM by ProviderIrma PA-C: Chemistry documented in this encounter [facility] 02-16-2025 Note HNO ID: [id number] Author: MARIANELA WALDEN LPN Service: ? Author Type: LICENSED NURSE Type: Progress Notes Filed: 02/16/2025 15:40 Note Text: R ear flushed with warm water/h2o2. Large amount of cerumen removed. Patient tolerated procedure well. Marianela Walden LPN [facility] 02-16-2025 Note HNO ID: [id number] Author: MADHAV IGLESIAS APRN.CIRCULAR KNIFE CUTTER MACHINE Service: ? Author Type: Nurse Practitioner Type: Progress Notes Filed: 02/16/2025 10:00 Note Text: This note was created using NoteWriter. Subjective Kate Coffey is a 69 year old female. HPI Patient presents today complaining of 2 days of sensation of the right ear being clogged. She also notes some sinus congestion. She otherwise denies any fever cough or sore throat. Review of Systems As above Objective BP 118/75 Pulse 78 Temp 36.1 ?C (97 ?F) Resp 18 Wt 103 kg (227 lb 1.2 oz) SpO2 98% BMI 42.21 kg/m? Physical Exam Vitals and nursing note reviewed. Constitutional: General: She is not in acute distress. Appearance: Normal appearance. She is not ill-appearing. HENT: Head: Normocephalic. Left Ear: Tympanic membrane normal. Ears: Comments: Right TM is partially occluded by cerumen Pulmonary: Effort: Pulmonary effort is normal. Musculoskeletal: General: Normal range of motion. Cervical back: Normal range of motion. Skin: General: Skin is warm and dry. Neurological: General: No focal deficit present. Mental Status: She is alert. Psychiatric: Mood and Affect: Mood normal. Behavior: Behavior normal. Assessment and Plan ASSESSMENT/PLAN: 1. Impacted cerumen of right ear - ICD9: 380.4, ICD10: H61.21 Right ear was flushed by nursing staff with good results. Patient notes 100% improvement in her symptoms. She will follow-up with PCP as needed. Madhav Iglesias APRN.[facility] 02-16-2025 History of Present illness Narrative This note was created using [employer]. Subjective Kate Coffey is a 69 year old female. HPI Patient presents today complaining of 2 days of sensation of the right ear being clogged. She also notes some sinus congestion. She otherwise denies any fever cough or sore throat. Review of Systems As above Objective BP 118/75 Pulse 78 Temp 36.1 C (97 F) Resp 18 Wt 103 kg (227 lb 1.2 oz) SpO2 98% BMI 42.21 kg/m Physical Exam Vitals and nursing note reviewed. Constitutional: General: She is not in acute distress. Appearance: Normal appearance. She is not ill-appearing. HENT: Head: Normocephalic. Left Ear: Tympanic membrane normal. Ears: Comments: Right TM is partially occluded by cerumen Pulmonary: Effort: Pulmonary effort is normal. Musculoskeletal: General: Normal range of motion. Cervical back: Normal range of motion. Skin: General: Skin is warm and dry. Neurological: General: No focal deficit present. Mental Status: She is alert. Psychiatric: Mood and Affect: Mood normal. Behavior: Behavior normal. Assessment and Plan ASSESSMENT/PLAN: 1. Impacted cerumen of right ear - ICD9: 380.4, ICD10: H61.21 Right ear was flushed by nursing staff with good results. Patient notes 100% improvement in her symptoms. She will follow-up with PCP as needed. Madhav Iglesias APRN.CNP documented in this encounter [facility] 02-03-2025 History of Present illness Narrative Radiology Service Progress Note PATIENT NAME: Kate Coffey DATE OF SERVICE: February 03, 2025 TIME: 11:56 AM PATIENT IDENTITY VERIFICATION COMPLETED USING TWO (2) IDENTIFIERS: Name and Date of confirmed by patient verbally. FALL SCREENING: Has the patient had 2 falls in the last year or 1 fall with injury or currently using an Ambulatory Assistive Device (Walker, Cane, Wheelchair, Crutches, etc.)? No PATIENT GENDER DATA: Assigned female at . status: : No status: NO. PATIENT RELEVANT IMPLANT DATA REVIEWED: Not Applicable PATIENT PRESENTS WITH AN IMPLANTABLE OR ATTACHED FIRESETTER: No RADIOLOGY DEPARTMENT: General X-ray: Exam(s) Completed: Upper Extremity X-Ray(s): Shoulder, AP / TRUE AP right PERIPHERAL IV DATA: Not applicable SIGNED BY: RT Ousmane(Graham) February 03, 2025 11:56 AM documented in this encounter [facility] 02-03-2025 Note HNO ID: [id number] Author: ROCIO BRIGHT RT(R) Service: Radiology Author Type: Technologist Type: Progress Notes Filed: 02/03/2025 12:03 Note Text: Radiology Service Progress Note PATIENT NAME: Kate Coffey DATE OF SERVICE: February 03, 2025 TIME: 11:56 AM PATIENT IDENTITY VERIFICATION COMPLETED USING TWO (2) IDENTIFIERS: Name and Date of confirmed by patient verbally. FALL SCREENING: Has the patient had 2 falls in the last year or 1 fall with injury or currently using an Ambulatory Assistive Device (Walker, Cane, Wheelchair, Crutches, etc.)? No PATIENT GENDER DATA: Assigned female at . status: : No status: NO. PATIENT RELEVANT IMPLANT DATA REVIEWED: Not Applicable PATIENT PRESENTS WITH AN IMPLANTABLE OR ATTACHED FIRESETTER: No RADIOLOGY DEPARTMENT: General X-ray: Exam(s) Completed: Upper Extremity X-Ray(s): Shoulder, AP / TRUE AP right PERIPHERAL IV DATA: Not applicable SIGNED BY: RT Ousmane(R) February 03, 2025 11:56 AM [facility] 02-03-2025 Note HNO ID: [id number] Author: GREGORY NINO MD Service: ? Author Type: Physician Type: Progress Notes Filed: 02/03/2025 13:00 Note Text: [facility] Subjective Kate Coffey is a 69 year old female. Patient presents with: Pain (Shoulder Pain): right x 1 day Shoulder pain: Duration: started last night Location: anterior right shoulder Character: sharp, tight Radiation: No. Aggravating: limited ability to move, not bothered by neck movement Relieving: standing Pain relievers: Prednisone, Plaquenil, acetaminophen, topical lidocaine Associated: History of RA, had similar pain in the left shoulder last week Pertinent negatives: Denies numbness, weakness, known injury, fever Pain (Shoulder Pain) Pertinent negatives include no chest pain or fever. Review of Systems Constitutional: Negative for fever. Respiratory: Negative for shortness of breath. Cardiovascular: Negative for chest pain and palpitations. Neurological: Negative for dizziness. Objective BP 134/80 Pulse 92 Temp 37.1 ?C (98.8 ?F) Resp 18 Wt 103.6 kg (228 lb 6.3 oz) SpO2 97% BMI 42.46 kg/m? Physical Exam Constitutional: General: She is not in acute distress. Eyes: Extraocular Movements: Extraocular movements intact. Pupils: Pupils are equal, round, and reactive to light. Neck: Comments: No shoulder pain induced with range of motion Cardiovascular: Rate and Rhythm: Normal rate and regular rhythm. Pulmonary: Effort: Pulmonary effort is normal. Breath sounds: Normal breath sounds. Musculoskeletal: Right wrist: Normal pulse. Left wrist: Normal pulse. Cervical back: Normal range of motion and neck supple. Comments: SHOULDER: right compared to left. No deformity or swelling. Palpation of clavicle non-tender, AC joint non-tender, glenohumeral joint tender anterior joint. ROM: limited abduction or flexion due to pain. Neurological: Mental Status: She is alert. Latest Ref Rng 06/19/2024 12/24/2024 Hemoglobin A1C 4.3 - 5.6 % 5.7 (H) 5.5 Latest Ref Rng 06/19/2024 eGFR >=60 mL/min/1.73m? 76 {ASSESSMENT/PLAN: 1. Acute pain of right shoulder - ICD9: 719.41, ICD10: M25.511 (primary diagnosis) 2. Bursitis of right shoulder - ICD9: 726.10, ICD10: M75.51 - XR SHOULDER [id number] AP/TRUE AP RIGHT -Mild acromioclavicular joint degenerative changes. Suspect bursitis/tendinitis due to limited range of motion without injury or abnormal findings on x-ray exam. Treat with anti-inflammatory, ice, heat. Anti-inflammatory options are limited to steroid (she cannot take NSAID with methotrexate). 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 Shoulder steroid injection can be considered through rheumatology or PCP. She is able to list short and long-term side effects of steroid from prior discussions. Gregory Nino MD History and Record Review External record(s) reviewed: prior outpatient record. Findings from review of outpatient records: Hemoglobin A1c 5.5 in December shows controlled diabetes mellitus. Differential Diagnoses - Left shoulder bursitis is more likely for the following reason(s): suggested by HANDP - Dislocation or fracture is less likely for the following reason(s): HANDP not suggestive - Joint infection is less likely for the following reason(s): No fever, swelling, or erythema - Atypical angina is less likely for the following reason(s): HANDP not suggestive Procedures [facility] 02-03-2025 History of Present illness Narrative [facility] Subjective Kate Coffey is a 69 year old female. Patient presents with: Pain (Shoulder Pain): right x 1 day Shoulder pain: Duration: started last night Location: anterior right shoulder Character: sharp, tight Radiation: No. Aggravating: limited ability to move, not bothered by neck movement Relieving: standing Pain relievers: Prednisone, Plaquenil, acetaminophen, topical lidocaine Associated: History of RA, had similar pain in the left shoulder last week Pertinent negatives: Denies numbness, weakness, known injury, fever Pain (Shoulder Pain) Pertinent negatives include no chest pain or fever. Review of Systems Constitutional: Negative for fever. Respiratory: Negative for shortness of breath. Cardiovascular: Negative for chest pain and palpitations. Neurological: Negative for dizziness. Objective BP 134/80 Pulse 92 Temp 37.1 C (98.8 F) Resp 18 Wt 103.6 kg (228 lb 6.3 oz) SpO2 97% BMI 42.46 kg/m Physical Exam Constitutional: General: She is not in acute distress. Eyes: Extraocular Movements: Extraocular movements intact. Pupils: Pupils are equal, round, and reactive to light. Neck: Comments: No shoulder pain induced with range of motion Cardiovascular: Rate and Rhythm: Normal rate and regular rhythm. Pulmonary: Effort: Pulmonary effort is normal. Breath sounds: Normal breath sounds. Musculoskeletal: Right wrist: Normal pulse. Left wrist: Normal pulse. Cervical back: Normal range of motion and neck supple. Comments: SHOULDER: right compared to left. No deformity or swelling. Palpation of clavicle non-tender, AC joint non-tender, glenohumeral joint tender anterior joint. ROM: limited abduction or flexion due to pain. Neurological: Mental Status: She is alert. Latest Ref Rng 06/19/2024 12/24/2024 Hemoglobin A1C 4.3 - 5.6 % 5.7 (H) 5.5 Latest Ref Rng 06/19/2024 eGFR >=60 mL/min/1.73m 76 {ASSESSMENT/PLAN: 1. Acute pain of right shoulder - ICD9: 719.41, ICD10: M25.511 (primary diagnosis) 2. Bursitis of right shoulder - ICD9: 726.10, ICD10: M75.51 - XR SHOULDER [id number] AP/TRUE AP RIGHT -Mild acromioclavicular joint degenerative changes. Suspect bursitis/tendinitis due to limited range of motion without injury or abnormal findings on x-ray exam. Treat with anti-inflammatory, ice, heat. Anti-inflammatory options are limited to steroid (she cannot take NSAID with methotrexate). 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 Shoulder steroid injection can be considered through rheumatology or PCP. She is able to list short and long-term side effects of steroid from prior discussions. Gregory Nino MD History and Record Review External record(s) reviewed: prior outpatient record. Findings from review of outpatient records: Hemoglobin A1c 5.5 in December shows controlled diabetes mellitus. Differential Diagnoses - Left shoulder bursitis is more likely for the following reason(s): suggested by H&P - Dislocation or fracture is less likely for the following reason(s): H&P not suggestive - Joint infection is less likely for the following reason(s): No fever, swelling, or erythema - Atypical angina is less likely for the following reason(s): H&P not suggestive Procedures documented in this encounter [facility] 01-22-2025 Telephone encounter Note Faxed. Lokesh Espitia MA [facility] 01-22-2025 Miscellaneous Notes Faxed. Lokesh Espitia MA Form completed. Received in provider mail box. Physical form to provider to complete. Given to provider. Lokesh Espitia MA documented in this encounter [facility] 01-21-2025 Telephone encounter Note Form completed. [facility] 01-17-2025 Telephone encounter Note Received in provider mail box. Physical form to provider to complete. Given to provider. Lokesh Espitia MA [facility] 01-10-2025 Telephone encounter Note See message to pt. Updated upcoming visit in June to 40 min, with update in note as Wellness. Dolly Cardoza MA [facility] 01-10-2025 Miscellaneous Notes See message to pt. Updated upcoming visit in June to 40 min, with update in note as Wellness. Dolly Cardoza MA documented in this encounter [facility] 01-01-2025 Note HNO ID: [id number] Author: LOKESH ESPITIA MA Service: ? Author Type: Sourcing Analyst Type: Progress Notes Filed: 01/01/2025 18:54 Note Text: Scan on 12/30/2024 4:22 PM by ProviderIrma, PA-C: Consultation - Ophthalmology HM updated. Lokesh Espitia MA [facility] 01-01-2025 History of Present illness Narrative Scan on 12/30/2024 4:22 PM by ProviderIrma, PA-C: Consultation - Ophthalmology HM updated. Lokesh Espitia MA documented in this encounter [facility] 12-30-2024 Telephone encounter Note Pt notified of results via [employer]. Sara Arriaga Ma [facility] 12-30-2024 Miscellaneous Notes Pt notified of results via Access Information Management. Sara Arriaga Ma ----- Message from Vanessa Berg PA-C sent at 12/30/2024 10:32 AM EDT ----- Normal mammogram. Repeat in 1 year. documented in this encounter [facility] 12-30-2024 Telephone encounter Note ----- Message from Vanessa Berg PA-C sent at 12/30/2024 10:32 AM EDT ----- Normal mammogram. Repeat in 1 year. [facility] 12-27-2024 History of Present illness Narrative Radiology Service Progress Note PATIENT NAME: Kate Coffey DATE OF SERVICE: December 27, 2024 TIME: 11:31 AM PATIENT IDENTITY VERIFICATION COMPLETED USING TWO (2) IDENTIFIERS: Name and Date of confirmed by patient verbally. FALL SCREENING: Has the patient had 2 falls in the last year or 1 fall with injury or currently using an Ambulatory Assistive Device (Walker, Cane, Wheelchair, Crutches, etc.)? No PATIENT GENDER DATA: Assigned female at . status: : No status: NO. PATIENT RELEVANT IMPLANT DATA REVIEWED: Not Applicable PATIENT PRESENTS WITH AN IMPLANTABLE OR ATTACHED FIRESETTER: No RADIOLOGY DEPARTMENT: Mammography PERIPHERAL IV DATA: Not applicable SIGNED BY: RT Amaya(Graham) December 27, 2024 11:31 AM documented in this encounter [facility] 12-27-2024 Note HNO ID: [id number] Author: MILLI VILLALTA RT(R) Service: ? Author Type: Technologist Type: Progress Notes Filed: 12/27/2024 11:31 Note Text: Radiology Service Progress Note PATIENT NAME: Kate Coffey DATE OF SERVICE: December 27, 2024 TIME: 11:31 AM PATIENT IDENTITY VERIFICATION COMPLETED USING TWO (2) IDENTIFIERS: Name and Date of confirmed by patient verbally. FALL SCREENING: Has the patient had 2 falls in the last year or 1 fall with injury or currently using an Ambulatory Assistive Device (Walker, Cane, Wheelchair, Crutches, etc.)? No PATIENT GENDER DATA: Assigned female at . status: : No status: NO. PATIENT RELEVANT IMPLANT DATA REVIEWED: Not Applicable PATIENT PRESENTS WITH AN IMPLANTABLE OR ATTACHED FIRESETTER: No RADIOLOGY DEPARTMENT: Mammography PERIPHERAL IV DATA: Not applicable SIGNED BY: RT Amaya(R) December 27, 2024 11:31 AM [facility] 12-25-2024 Telephone encounter Note Pt informed Sue Urena MA [facility] 12-25-2024 Miscellaneous Notes Pt informed Sue Urena MA Let patient know that her A1c became available at 1:11. Just minutes after she left. But it's 5.5 which is great!. Thanks. Vanessa Berg PA-C documented in this encounter [facility] 12-25-2024 Telephone encounter Note Let patient know that her A1c became available at 1:11. Just minutes after she left. But it's 5.5 which is great!. Thanks. Vanessa Berg PA-C [facility] 12-25-2024 Instructions Vanessa Berg PA-C - 12/25/2024 12:51 PM EDT - Schedule your mammogram at the lead front desk agent before leaving; it is due in January. - Complete your eye exam as scheduled on Monday. - Consider scheduling a Pap smear if desired; last one was in 2018. - We will call you with your A1c results once they are available. - Next follow-up appointment in 6 months; labs will be ordered at that time. documented in this encounter [facility] 12-25-2024 Note HNO ID: [id number] Author: VANESSA BERG PA-C Service: ? Author Type: Physician Recreational Leader Type: Progress Notes Filed: 12/25/2024 13:17 Note Text: Chief Complaint Patient presents with: F/U 6 Month HPI Kate Coffey is a 69 year old female who presents here today for Chronic Medical Conditions.. Patient with hx of HTN, hyperlipidemia, DM2, RA, fibro and those as below. Overall doing well. Denies specific concerns. Fibromyalgia: - Kate reports intermittent neuropathy, described as neurothrombia, associated with fibromyalgia. - Discontinued Enbrel in October due to insurance issues; reports no significant increase in pain since stopping the medication. Hyperlipidemia: - Taking atorvastatin 10 mg daily. - Recent dietary changes include increased intake of fruits and vegetables. - Consumed Girl Clinical Coordinator cookies recently, which is unusual for her diet. Hypertension: - Taking lisinopril. - No recent changes in medication. Weight Loss: - Lost approximately 8-10 lbs. - Attributes weight loss to increased consumption of fruits and vegetables. Depression: - Kate reports feeling down several days in the past two weeks due to job loss. - Denies feeling hopeless or depressed most days. Lifestyle: - Denies tobacco use. - Scheduled for an eye exam on Monday. - Last Pap smear in 2018; does not recall any abnormal results. Past medical history, appointments, medications, allergies reviewed. 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 Essential hypertension Fibromyalgia 06/01/2021 Hemangioma of liver 09/18/2023 Right lob: MRI 09/2023 Hirsutism Migraine Mixed hyperlipidemia Obesity, Class III, BMI 40-49.9 (morbid obesity) ([facility]) 12/12/2017 Pancreatic cyst 09/18/2023 MRI: 09/2023 needs repeat imaging in 09/2024 Plantar fasciitis Polyarthralgia 09/26/[address] Montenegro Rheumatoid arthritis involving multiple sites ([facility]) 06/01/2021 Dr. Quigley Well adult exam 12/02/2020 Last done: 02/27/2019 Previous Surgical History PAST SURGICAL HISTORY Procedure Laterality Date CARPAL TUNNEL Right 09/28/2018 COLONOSCOPY 02/2016 repeat 5 years COLONOSCOPY FLX DX W/COLLJ SPEC WHEN PFRMD 05/09/2013 Colonoscopy COLONOSCOPY FLX DX W/COLLJ SPEC WHEN PFRMD 06/30/2021 PAST SURGICAL HISTORY OF heel spur PAST SURGICAL HISTORY OF wisdom teeth Family History FAMILY HISTORY Problem Relation Age of Onset other (meningitis) Mother encephalitis other (bladder cancer) Father Diabetes Sister Heart Sister AICD Detached Retina Brother Diabetes Brother Colon Polyps Brother COPD Brother Diabetes Maternal Grandmother Heart Maternal Grandmother Diabetes Paternal Grandmother Diabetes Paternal Grandfather Patient Allergies ALLERGIES Allergen Reactions Dolobid [Diflunisal] Rash Current Medications Current Outpatient Medications on File Prior to Visit Medication Sig spironolactone (ALDACTONE) 25 mg tablet Take 0.5 tablets by mouth once daily. lisinopril (PRINIVIL) 10 mg tablet Take 1 tablet by mouth once daily. atorvastatin (LIPITOR) 10 mg tablet Take 1 tablet by mouth once daily. mometasone (NASONEX) 50 mcg/actuation nasal spray Use 2 Sprays in the nose once daily. Rinse mouth after use. MAGNESIUM ORAL Take by mouth as directed. BIOTIN ORAL Take by mouth. etanercept (ENBREL) 25 mg (1 mL) injection Inject 0.4 mg/kg/dose subcutaneously one time only. weekly predniSONE (DELTASONE) 2.5 mg tablet Take 1 tablet by mouth once daily. Take ten tabs by mouth on day one and reduce by one a day till done. DULoxetine (CYMBALTA) 30 mg capsule Take 30 mg by mouth once daily. METHOTREXATE ORAL Take 5 mg by mouth. Take 1 tablet weekly calcium citrate-vitamin D3 (CALCIUM CITRATE + D) 315-200 mg-unit tab Take 1 tablet by mouth twice daily with meals. ascorbic acid, vitamin C, (VITAMIN C) 500 mg tablet Take 500 mg by mouth once daily. aspirin, enteric coated (ASPIRIN, ENTERIC COATED) 81 mg EC tablet Take 81 mg by mouth once daily. multivitamin tablet Take 1 tablet by mouth once daily. acetaminophen (TYLENOL) 500 mg tablet Take 500 mg by mouth daily at bedtime. folic acid 1 mg tablet Take 1 mg by mouth once daily. Take 2 tablets daily (Patient not taking: Reported on 12/25/2024) No current facility-administered medications on file prior to visit. Social History Social History Tobacco Use Smoking st (more content not included)... [facility] 12-25-2024 History of Present illness Narrative Chief Complaint Patient presents with: F/U 6 Month HPI Kate Coffey is a 69 year old female who presents here today for Chronic Medical Conditions.. Patient with hx of HTN, hyperlipidemia, DM2, RA, fibro and those as below. Overall doing well. Denies specific concerns. Fibromyalgia: - Kate reports intermittent neuropathy, described as neurothrombia, associated with fibromyalgia. - Discontinued Enbrel in October due to insurance issues; reports no significant increase in pain since stopping the medication. Hyperlipidemia: - Taking atorvastatin 10 mg daily. - Recent dietary changes include increased intake of fruits and vegetables. - Consumed Girl Clinical Coordinator cookies recently, which is unusual for her diet. Hypertension: - Taking lisinopril. - No recent changes in medication. Weight Loss: - Lost approximately 8-10 lbs. - Attributes weight loss to increased consumption of fruits and vegetables. Depression: - Kate reports feeling down several days in the past two weeks due to job loss. - Denies feeling hopeless or depressed most days. Lifestyle: - Denies tobacco use. - Scheduled for an eye exam on Monday. - Last Pap smear in 2018; does not recall any abnormal results. Past medical history, appointments, medications, allergies reviewed. 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 Essential hypertension Fibromyalgia 06/01/2021 Hemangioma of liver 09/18/2023 Right lob: MRI 09/2023 Hirsutism Migraine Mixed hyperlipidemia Obesity, Class III, BMI 40-49.9 (morbid obesity) ([facility]) 12/12/2017 Pancreatic cyst 09/18/2023 MRI: 09/2023 needs repeat imaging in 09/2024 Plantar fasciitis Polyarthralgia 09/26/[address] Montenegro Rheumatoid arthritis involving multiple sites ([facility]) 06/01/2021 Dr. Quigley Well adult exam 12/02/2020 Last done: 02/27/2019 Previous Surgical History PAST SURGICAL HISTORY Procedure Laterality Date CARPAL TUNNEL Right 09/28/2018 COLONOSCOPY 02/2016 repeat 5 years COLONOSCOPY FLX DX W/COLLJ SPEC WHEN PFRMD 05/09/2013 Colonoscopy COLONOSCOPY FLX DX W/COLLJ SPEC WHEN PFRMD 06/30/2021 PAST SURGICAL HISTORY OF heel spur PAST SURGICAL HISTORY OF wisdom teeth Family History FAMILY HISTORY Problem Relation Age of Onset other (meningitis) Mother encephalitis other (bladder cancer) Father Diabetes Sister Heart Sister AICD Detached Retina Brother Diabetes Brother Colon Polyps Brother COPD Brother Diabetes Maternal Grandmother Heart Maternal Grandmother Diabetes Paternal Grandmother Diabetes Paternal Grandfather Patient Allergies ALLERGIES Allergen Reactions Dolobid [Diflunisal] Rash Current Medications Current Outpatient Medications on File Prior to Visit Medication Sig spironolactone (ALDACTONE) 25 mg tablet Take 0.5 tablets by mouth once daily. lisinopril (PRINIVIL) 10 mg tablet Take 1 tablet by mouth once daily. atorvastatin (LIPITOR) 10 mg tablet Take 1 tablet by mouth once daily. mometasone (NASONEX) 50 mcg/actuation nasal spray Use 2 Sprays in the nose once daily. Rinse mouth after use. MAGNESIUM ORAL Take by mouth as directed. BIOTIN ORAL Take by mouth. etanercept (ENBREL) 25 mg (1 mL) injection Inject 0.4 mg/kg/dose subcutaneously one time only. weekly predniSONE (DELTASONE) 2.5 mg tablet Take 1 tablet by mouth once daily. Take ten tabs by mouth on day one and reduce by one a day till done. DULoxetine (CYMBALTA) 30 mg capsule Take 30 mg by mouth once daily. METHOTREXATE ORAL Take 5 mg by mouth. Take 1 tablet weekly calcium citrate-vitamin D3 (CALCIUM CITRATE + D) 315-200 mg-unit tab Take 1 tablet by mouth twice daily with meals. ascorbic acid, vitamin C, (VITAMIN C) 500 mg tablet Take 500 mg by mouth once daily. aspirin, enteric coated (ASPIRIN, ENTERIC COATED) 81 mg EC tablet Take 81 mg by mouth once daily. multivitamin tablet Take 1 tablet by mouth once daily. acetaminophen (TYLENOL) 500 mg tablet Take 500 mg by mouth daily at bedtime. folic acid 1 mg tablet Take 1 mg by mouth once daily. Take 2 tablets daily (Patient not taking: Reported on 12/25/2024) No current facility-administered medications on file prior to visit. Social History Social History Tobacco Use Smoking status: Never Smokeless tobacco: Never Vaping Use Vaping status: Never Used Substance Use Topics Alcohol use: Not Currently Comment: rarely Drug use: No Review of Symptoms REVIEW OF SYSTEMS GENERAL: No weight loss, malaise or fevers NECK: Negative for lumps, goiter, pain and significant neck swelling RESPIRATORY: Negative for cough, hemoptysis, wheezing, COPD, dyspnea or shortness of breath CARDIOVASCULAR: Negative for chest pain, leg swelling, hypertension, CHF or palpitations NEURO: No history of headaches, syncope, paralysis, seizures or tremors EXAM: BP 122/74 (BP Site: Left Arm, BP Position: Sitting, BP Cuff Size: Large Adult) Pulse 93 Temp 37 C (98.6 F) (Left Tympanic) Wt 101.5 kg (223 lb 12.8 oz) SpO2 96% BMI 41.60 kg/m Last 3 Encounter Wt Readings: Date: Wt: 12/25/2024 101.5 kg (223 lb 12.8 oz) 06/26/2024 104.3 kg (230 lb) 05/15/2024 104.8 kg (231 lb) General Appearance: Well appearing, alert, in no acute distress, well-hydrated, well nourished.. Neck: Supple, no adenopathy; thyroid symmetric, normal size, no bruits. Lungs: Lungs clear to auscultation. No wheezing, rhonchi, rales.. Heart: RRR without murmur, gallop, or rubs. No ectopy. Extremities: No deformities, edema, skin discoloration, clubbing or cyanosis. Good capillary refill. . Peripheral Pulses: Normal. Health Maintenance List Cervical Cancer Screening due on 03/16/2019 Advance Directive Discussion due on 10/16/2024 Dilated Retinal Exam due on 12/25/2024 Mammogram Screening due on 01/22/2025 RSV Vaccine(1 - Risk 60-74 years 1-dose series) due on 06/26/2025 Anxiety Screening due on 06/26/2025 Covid-19 Vaccine(7 - Moderna risk 2023- season) due on 04/02/2025 Urine Albumin:Creatinine Ratio due on 06/19/2025 Diabetic Foot Exam due on 06/26/2025 HbA1C due on 06/26/2025 LDL Cholesterol due on 12/24/2025 Annual PCP Team Chronic Disease Visit due on 12/25/2025 Depression Screening due on 12/25/2025 BP Controlled (<130/80) due on 12/25/2025 Colorectal Cancer Screening due on 06/30/2026 DTaP,Tdap,Td Vaccine(4 - Td or Tdap) due on 06/01/2031 Bone Density Screening Completed Influenza Vaccine Completed Hepatitis C Screening Completed Shingrix Vaccine Completed Pneumococcal Vaccine: 50+ Completed Data reviewed Latest Ref Rng 12/24/2024 Total Cholesterol, Nonfasting <200 mg/dL 127 Triglycerides, Nonfasting <150 mg/dL 158 (H) HDL Cholesterol, Nonfasting >39 mg/dL 56 LDL Cholesterol, Nonfasting <100 mg/dL 39 Non HDL Cholesterol, Nonfasting <130 mg/dL 71 VLDL Cholesterol, Nonfasting <30 mg/dL 32 (H) Total Chol/HDL Ratio, Nonfasting <5.10 mg/dL 2.27 LDL/HDL Ratio, Nonfasting <2.54 mg/dL 0.70 Hemoglobin A1C 4.3 - 5.6 % 5.5 Estimated Average Glucose mg/dL 111 Legend: (H) High Assessment and Plan 1. Controlled type 2 diabetes mellitus without complication, without long-term current use of insulin ([facility]) (E11.9) - Awaiting A1c results; will notify patient via MyChart or phone call once available. - Scheduled follow-up labs in 6 months. 2. Essential hypertension (I10) - Blood pressure readings are stable. - Continue current medication regimen. - Refilled lisinopril prescription. 3. Mixed hyperlipidemia (E78.2) - Recent labs show total cholesterol at 127 mg/dL, triglycerides at 150 mg/dL, HDL and LDL levels are optimal with LDL significantly improved from 109 mg/dL to 39 mg/dL since June. - Continue atorvastatin 10 mg daily; refilled prescription. - Patient's dietary modifications contributing to improved lipid profile. 4. Encounter for screening mammogram for breast cancer (Z12.31) - Due for mammogram in January; order placed. - Patient to schedule appointment at the lead front desk agent. 5. Screening for depression (Z13.31) - PHQ-2 screening performed; patient reports several days of little interest or pleasure in doing things and occasional feelings of being down, attributed to recent job loss. - No further intervention required at this time. 6. Fibromyalgia (M79.7) - No significant changes in symptoms; neuropathic pain remains stable. - Continue current management. 7. Obesity, Class III, BMI 40-49.9 (morbid obesity) ([facility]) (E66.01) - Patient has lost approximately 8-10 pounds since last visit. - Encouraged continuation of current dietary habits, including increased intake of fruits and vegetables. 8. Diabetic eye exam ([facility]) (Z01.00) - Scheduled for Monday. 9. Rheumatoid arthritis involving multiple sites, unspecified whether rheumatoid factor present ([facility]) (M06.9) - Patient discontinued Enbrel in October due to insurance issues and has not experienced significant increase in pain. - Removed Enbrel from medication list. Vanessa Berg PA-C The patient consented to the use of [employer] software for draft documentation of the visit consistent with [facility] s Notice of Privacy Practices. documented in this encounter [facility] 12-23-2024 Telephone encounter Note Just those. [facility] 12-23-2024 Miscellaneous Notes Just those. Please see pt's message. Pt has A1C and Lipid that were expected by 12/13/24 does pt need any other labs prior to her appointment 12/25/24? Hermilo Mohamud LPN documented in this encounter [facility] 12-23-2024 Telephone encounter Note Please see pt's message. Pt has A1C and Lipid that were expected by 12/13/24 does pt need any other labs prior to her appointment 12/25/24? Hermilo Mohamud LPN [facility] 11-05-2024 Note HNO ID: [id number] Author: HERMILO MOHAMUD LPN Service: ? Author Type: LICENSED NURSE Type: Progress Notes Filed: 11/05/2024 07:10 Note Text: Scan on 11/04/2024 5:07 PM by Irma Romero PA-C: Hematology Scan on 11/04/2024 5:41 PM by Irma Romero PA-C: Chemistry [facility] 11-05-2024 History of Present illness Narrative Scan on 11/04/2024 5:07 PM by Irma Romero PA-C: Hematology Scan on 11/04/2024 5:41 PM by Irma Romero PA-C: Chemistry documented in this encounter [facility] 10-02-2024 Telephone encounter Note Spoke with pt and information listed below given. Pt verbalizes understanding. Naveen Hope LPN [facility] 10-02-2024 Miscellaneous Notes Spoke with pt and information listed below given. Pt verbalizes understanding. Naveen Hope LPN Left message for patient to contact office. Lokesh Espitia MA Let patient know the cyst in the pancrease is stable. Will repeat MRI again in a year. documented in this encounter [facility] 10-02-2024 Telephone encounter Note Left message for patient to contact office. Lokesh Espitia MA [facility] 10-02-2024 Telephone encounter Note Let patient know the cyst in the pancrease is stable. Will repeat MRI again in a year. [facility] 09-27-2024 History of Present illness Narrative Radiology Service Progress Note DATE OF SERVICE: September 27, 2024 TIME: 1:09 PM PATIENT IDENTITY VERIFICATION COMPLETED USING TWO (2) STANDARD IDENTIFIERS: Name and Date of confirmed by patient verbally. FALL SCREENING: Has the patient had 2 falls in the last year or 1 fall with injury or currently using an Ambulatory Assistive Device (Walker, Cane, Wheelchair, Crutches, etc.)? No PATIENT GENDER DATA: Female. status: : No status: NO. PATIENT RELEVANT IMPLANT DATA REVIEWED: Yes PATIENT PRESENTS WITH AN IMPLANTABLE OR ATTACHED FIRESETTER: No ALLERGIES: Reviewed and unchanged CONTRAST ALLERGY: NO. EXAM: MRI - CONTRAST TYPE: GROUP II PERIPHERAL IV DATA: Ambulatory: A peripheral IV was started in the Left antecubital site with a Angio cath: 22 gauge. RADIOLOGY DEPARTMENT: MR; Exam(s) Completed: Body: Pancreas/Biliary SIGNATURE: RT Meg(Graham) PATIENT NAME: Kate Coffey DATE: September 27, 2024 TIME: 1:09 PM documented in this encounter [facility] 09-27-2024 Note HNO ID: [id number] Author: JAJA DUONG RT (R) Service: ? Author Type: Technologist Type: Progress Notes Filed: 09/27/2024 13:10 Note Text: Radiology Service Progress Note DATE OF SERVICE: September 27, 2024 TIME: 1:09 PM PATIENT IDENTITY VERIFICATION COMPLETED USING TWO (2) STANDARD IDENTIFIERS: Name and Date of confirmed by patient verbally. FALL SCREENING: Has the patient had 2 falls in the last year or 1 fall with injury or currently using an Ambulatory Assistive Device (Walker, Cane, Wheelchair, Crutches, etc.)? No PATIENT GENDER DATA: Female. status: : No status: NO. PATIENT RELEVANT IMPLANT DATA REVIEWED: Yes PATIENT PRESENTS WITH AN IMPLANTABLE OR ATTACHED FIRESETTER: No ALLERGIES: Reviewed and unchanged CONTRAST ALLERGY: NO. EXAM: MRI - CONTRAST TYPE: GROUP II PERIPHERAL IV DATA: Ambulatory: A peripheral IV was started in the Left antecubital site with a Angio cath: 22 gauge. RADIOLOGY DEPARTMENT: MR; Exam(s) Completed: Body: Pancreas/Biliary SIGNATURE: RT Meg(Graham) PATIENT NAME: Kate Coffey DATE: September 27, 2024 TIME: 1:09 PM [facility] 09-18-2024 Telephone encounter Note The following approved medication requests have been transmitted electronically. Requested Prescriptions Signed Prescriptions Disp Refills spironolactone (ALDACTONE) 25 mg tablet 45 tablet 1 Sig: Take 0.5 tablets by mouth once daily. Authorizing Provider: LAURENT PAGAN MD [facility] 09-18-2024 Miscellaneous Notes The following approved medication requests have been transmitted electronically. Requested Prescriptions Signed Prescriptions Disp Refills spironolactone (ALDACTONE) 25 mg tablet 45 tablet 1 Sig: Take 0.5 tablets by mouth once daily. Authorizing Provider: LAURENT PAGAN MD Patient has been identified by name and date of : Yes, Patient phones for refill(s): Requested Prescriptions Pending Prescriptions Disp Refills spironolactone (ALDACTONE) 25 mg tablet 45 tablet 1 Sig: Take 0.5 tablets by mouth once daily. Date of last office visit in primary care: 06/26/2024 Date of next office visit in primary care: 12/25/2024 [facility] Please advise. Thank you. Adelita Lucero. documented in this encounter [facility] 09-18-2024 Telephone encounter Note Patient has been identified by name and date of : Yes, Patient phones for refill(s): Requested Prescriptions Pending Prescriptions Disp Refills spironolactone (ALDACTONE) 25 mg tablet 45 tablet 1 Sig: Take 0.5 tablets by mouth once daily. Date of last office visit in primary care: 06/26/2024 Date of next office visit in primary care: 12/25/2024 [facility] Please advise. Thank you. Adelita Lucero. [facility] 08-27-2024 Note HNO ID: [id number] Author: HERMILO MOHAMUD LPN Service: ? Author Type: LICENSED NURSE Type: Progress Notes Filed: 08/27/2024 08:07 Note Text: Scan on 08/27/2024 7:08 AM by Irma Romero PA-C: Microbiology [facility] 08-27-2024 History of Present illness Narrative Scan on 08/27/2024 7:08 AM by Irma Romero PA-C: Microbiology documented in this encounter [facility] 08-26-2024 Note HNO ID: [id number] Author: HERMILO MOHAMUD LPN Service: ? Author Type: LICENSED NURSE Type: Progress Notes Filed: 08/26/2024 13:59 Note Text: Scan on 08/26/2024 8:26 AM by Irma Romero PA-C: Microbiology [facility] 08-26-2024 History of Present illness Narrative Scan on 08/26/2024 8:26 AM by Irma Romero PA-C: Microbiology documented in this encounter [facility] 08-23-2024 Note HNO ID: [id number] Author: HERMILO MOHAMUD LPN Service: ? Author Type: LICENSED NURSE Type: Progress Notes Filed: 08/23/2024 09:00 Note Text: Scan on 08/23/2024 8:32 AM by Irma Romero PA-C: Miscellaneous Lab [facility] 08-23-2024 History of Present illness Narrative Scan on 08/23/2024 8:32 AM by Irma Romero PA-C: Miscellaneous Lab documented in this encounter [facility] 08-22-2024 Note HNO ID: [id number] Author: LYNETTE GARRETT MA Service: ? Author Type: Sourcing Analyst Type: Progress Notes Filed: 08/22/2024 14:57 Note Text: Scan on 08/21/2024 10:06 PM by Irma Romero PA-C: Miscellaneous Lab [facility] 08-22-2024 History of Present illness Narrative Scan on 08/21/2024 10:06 PM by Irma Romero PA-C: Miscellaneous Lab documented in this encounter [facility] 08-22-2024 Note HNO ID: [id number] Author: LYNETTE GARRETT MA Service: ? Author Type: Sourcing Analyst Type: Progress Notes Filed: 08/22/2024 13:38 Note Text: Scan on 08/22/2024 11:37 AM by Irma Romero PA-C: gram stain [facility] 08-22-2024 History of Present illness Narrative Scan on 08/22/2024 11:37 AM by Irma Romero PA-C: gram stain documented in this encounter [facility] 08-08-2024 History of Present illness Narrative Scan on 08/08/2024 6:52 AM by Irma Romero PA-C: Hematology Scan on 08/07/2024 6:38 PM by Irma Romero PA-C: Chemistry documented in this encounter [facility] 06-26-2024 Instructions Laurent Pagan MD - 06/26/2024 1:08 PM EDT If considering the RSV vaccine check to make sure it is covered by insurance first. Please get labs done on or after 12/13/2024 prior to your next visit. documented in this encounter [facility] 06-26-2024 History of Present illness Narrative Images from the original note were not included. Chief Complaint Patient presents with: Physical HPI Kate Coffey is a 68 year old female who presents here today for Physical. Patient with hx of hyperlipidemia, HTN, DM2, RA, and those as below. Component Ref Range & Units 7 d ago (06/19/24) 6 mo ago (12/27/23) 1 yr ago (06/26/23) 1 yr ago (01/03/23) 1 yr ago (07/04/22) 2 yr ago (12/22/21) 3 yr ago (06/01/21) Hemoglobin A1C 4.3 - 5.6 % 5.7 High 5.6 CM 5.6 CM 5.7 High CM 5.5 CM 5.7 High CM 5.[address] Moran last visit 07/2023 Patient sees Ophthalmology last visit 12/2023 Has been doing well. No new issues or concerns. Past medical history, appointments, medications, allergies reviewed. Previous Medical History PAST MEDICAL HISTORY 07/06/2022: Advance directive discussed with patient Comment: Discussed 06/2022 No date: Arthritis 12/12/2017: Class 2 obesity due to excess calories without serious comorbidity with body mass index (BMI) of 39.0 to 39.9 in adult 12/12/2017: Controlled type 2 diabetes mellitus without complication, without long-term current use of insulin ([facility]) No date: Depression 06/08/2018: Diabetic eye exam ([facility]) Comment: Last done: 01/03/22: No Retinopathy [facility] 07/2023: Diverticulitis No date: Dysmetabolic syndrome X Comment: She has this syndrome since 1994. No date: Essential hypertension 06/01/2021: Fibromyalgia 09/18/2023: Hemangioma of liver Comment: Right lob: MRI 09/2023 No date: Hirsutism No date: Migraine No date: Mixed hyperlipidemia 12/12/2017: Obesity, Class III, BMI 40-49.9 (morbid obesity) ([facility]) 09/18/2023: Pancreatic cyst Comment: MRI: 09/2023 needs repeat imaging in 09/2024 No date: Plantar fasciitis 09/26/2018: Polyarthralgia Comment: Seeing Dr. Montenegro 06/01/2021: Rheumatoid arthritis involving multiple sites ([facility]) Comment: Dr. Quigley 12/02/2020: Well adult exam Comment: Last done: 02/27/2019 Previous Surgical History PAST SURGICAL HISTORY No date: CARPAL TUNNEL; Right Comment: 09/28/201802/2016: COLONOSCOPY Comment: repeat 5 years 05/09/2013: COLONOSCOPY FLX DX W/COLLJ SPEC WHEN PFRMD Comment: Colonoscopy 06/30/2021: COLONOSCOPY FLX DX W/COLLJ SPEC WHEN PFRMD No date: PAST SURGICAL HISTORY OF Comment: heel spur No date: PAST SURGICAL HISTORY OF Comment: wisdom teeth Family History FAMILY HISTORY Problem Relation Age of Onset other (meningitis) Mother encephalitis other (bladder cancer) Father Diabetes Sister Heart Sister AICD Detached Retina Brother Diabetes Brother Colon Polyps Brother COPD Brother Diabetes Maternal Grandmother Heart Maternal Grandmother Diabetes Paternal Grandmother Diabetes Paternal Grandfather Patient Allergies ALLERGIES Allergen Reactions Dolobid [Diflunisal] Rash Current Medications Current Outpatient Medications on File Prior to Visit Medication Sig albuterol HFA (PROVENTIL HFA, VENTOLIN HFA) 90 mcg/actuation inhaler Inhale 2 Puffs as instructed every 6 hours as needed for wheezing/shortness of breath. spironolactone (ALDACTONE) 25 mg tablet Take 0.5 tablets by mouth once daily. lisinopril (PRINIVIL) 10 mg tablet Take 1 tablet by mouth once daily. atorvastatin (LIPITOR) 20 mg tablet Take 0.5 tablets by mouth once daily. mometasone (NASONEX) 50 mcg/actuation nasal spray Use 2 Sprays in the nose once daily. Rinse mouth after use. albuterol HFA (PROVENTIL HFA, VENTOLIN HFA) 90 mcg/actuation inhaler Inhale 2 Puffs as instructed every 6 hours as needed for wheezing/shortness of breath. MAGNESIUM ORAL Take by mouth as directed. BIOTIN ORAL Take by mouth. etanercept (ENBREL) 25 mg (1 mL) injection Inject 0.4 mg/kg/dose subcutaneously one time only. weekly predniSONE (DELTASONE) 2.5 mg tablet Take 1 tablet by mouth once daily. Take ten tabs by mouth on day one and reduce by one a day till done. folic acid 1 mg tablet Take 1 mg by mouth once daily. Take 2 tablets daily DULoxetine (CYMBALTA) 30 mg capsule Take 30 mg by mouth once daily. METHOTREXATE ORAL Take 5 mg by mouth. Take 1 tablet weekly calcium citrate-vitamin D3 (CALCIUM CITRATE + D) 315-200 mg-unit tab Take 1 tablet by mouth twice daily with meals. ascorbic acid, vitamin C, (VITAMIN C) 500 mg tablet Take 500 mg by mouth once daily. aspirin, enteric coated (ASPIRIN, ENTERIC COATED) 81 mg EC tablet Take 81 mg by mouth once daily. multivitamin tablet Take 1 tablet by mouth once daily. acetaminophen (TYLENOL) 500 mg tablet Take 500 mg by mouth daily at bedtime. No current facility-administered medications on file prior to visit. Social History Social History Tobacco Use Smoking status: Never Smokeless tobacco: Never Vaping Use Vaping status: Never Used Substance Use Topics Alcohol use: Not Currently Comment: rarely Drug use: No Review of Symptoms REVIEW OF SYSTEMS GENERAL: No unintentional weight loss, malaise or fevers HEENT: Negative for frequent or significant headaches, No changes in hearing or vision, no nose bleeds or other nasal problems NECK: Negative for lumps, goiter, pain and significant neck swelling RESPIRATORY: Negative for cough, hemoptysis, . On a rare occasional may have a slight wheeze. CARDIOVASCULAR: Negative for chest pain, increase leg swelling, hypertension, CHF or palpitations GI: No nausea, vomiting, or diarrhea, No heartburn or reflux symptoms, and no blood : No history of dysuria, frequency or blood MUSCULOSKELETAL: Negative for new or changes in her typical joint pain or swelling, back pain or muscle pain SKIN: Negative for lesions, rash, and itching PSYCH: Negative for sleep disturbance, mood disorder and recent psychosocial stressors HEMATOLOGY/LYMPHOLOGY: Negative for prolonged bleeding, bruising easily or swollen nodes ENDOCRINE: Negative for cold or heat intolerance, on occasion gets symptoms of low BS's NEURO: No history of headaches, syncope, paralysis, seizures or tremors EXAM: BP 116/70 (BP Site: Left Arm, BP Position: Sitting, BP Cuff Size: Large Adult) Pulse 84 Ht 156.2 cm (5' 1.5) Wt 104.3 kg (230 lb) BMI 42.75 kg/m Last 5 Encounter Wt Readings: Date: Wt: 06/26/2024 104.3 kg (230 lb) 05/15/2024 104.8 kg (231 lb) 05/07/2024 107 kg (235 lb 14.3 oz) 12/27/2023 105.9 kg (233 lb 6.4 oz) 08/14/2023 103.4 kg (228 lb) General Appearance: Well appearing, alert, in no acute distress, well-hydrated, well nourished. and Morbidly obese. Skin: Skin color, texture, turgor normal, no suspicious rashes or lesions. Head: Normocephalic, no masses, lesions, tenderness or abnormalities. Eyes: Anicteric sclera. Pupils are equally round and reactive to light. Extraocular movements are intact. . Ears: External ears, TM's normal, canals clear. Nose/Sinuses: Nares normal, septum midline, mucosa normal, no drainage or sinus tenderness. Oropharynx: Lips, mucosa, and tongue normal, teeth and gums normal, oropharynx normal. Neck: Supple, no adenopathy; thyroid symmetric, normal size, no bruits. Lungs: Lungs clear to auscultation. No wheezing, rhonchi, rales.. Heart: RRR without murmur, gallop, or rubs. No ectopy. Abdomen: Normal abdominal exam, Abdomen soft, non-tender. Bowel sounds normal. No masses, organomegaly. Extremities: No deformities, edema, skin discoloration, clubbing or cyanosis. Good capillary refill. . Musculoskeletal: Muscular strength intact, No joint swelling, deformity, or tenderness. Peripheral Pulses: Normal. Neurologic: Gait normal. Reflexes normal and symmetric. Sensation to light touch and crainal nerves 2-12 intact.. Diabetic Foot Exam: Feet: Shoes and socks removed, no deformities, ulcers, calluses, normal distal pulses, sensitive to 10 gm microfilament, and vibratory exam absent bilaterally Skin: warm, dry, no callouses or ulcer, and normal hair growth Vascular Pulses: Normal [facility]OF[facility] TESTING Left Foot Right Foot Dorsal Surface Intact Dorsal Surface Intact Plantar Surface Intact Plantar Surface Intact Health Maintenance List Depression Screening Never done Anxiety Screening Never done RSV Vaccine(1 - 1-dose 60+ series) Never done Cervical Cancer Screening due on 03/16/2019 Advance Directive Discussion due on 10/16/2023 Covid-19 Vaccine(2022- season) due on 06/16/2024 Influenza Vaccine(1) due on 06/16/2024 Diabetic Foot Exam due on 06/26/2024 HbA1C due on 12/17/2024 Dilated Retinal Exam due on 12/25/2024 Mammogram Screening due on 01/22/2025 Annual PCP Team Chronic Disease Visit due on 05/15/2025 BP Controlled (<130/80) due on 05/15/2025 Urine Albumin:Creatinine Ratio due on 06/19/2025 LDL Cholesterol due on 06/19/2025 Colorectal Cancer Screening due on 06/30/2026 DTaP,Tdap,Td Vaccine(4 - Td or Tdap) due on 06/01/2031 Bone Density Screening Completed Hepatitis C Screening Completed Shingrix Vaccine Completed Pneumococcal Vaccine: 65+ Completed Data reviewed Latest Ref Rng 06/26/2023 12/27/2023 06/19/2024 WBC 3.70 - 11.00 k/uL 10.04 5.89 RBC 3.90 - 5.20 m/uL 4.73 4.48 Hemoglobin 11.5 - 15.5 g/dL 14.7 13.9 Hematocrit 36.0 - 46.0 % 45.6 43.6 MCV 80.0 - 100.0 fL 96.4 97.3 MCH 26.0 - 34.0 pg 31.1 31.0 MCHC 30.5 - 36.0 g/dL 32.2 31.9 RDW-CV 11.5 - 15.0 % 12.8 13.3 Platelet Count 150 - 400 k/uL 311 207 MPV 9.0 - 12.7 fL 10.1 10.3 Neut% % 59.9 44.0 Abs Neut (ANC) 1.45 - 7.50 k/uL 6.02 2.59 Lymph% % 26.8 33.4 Abs Lymph 1.00 - 4.00 k/uL 2.69 1.97 [place]% % 9.1 13.1 Abs [place] <0.87 k/uL 0.91 (H) 0.77 Eosin% % 2.7 7.3 Abs Eosin <0.46 k/uL 0.27 0.43 Baso% % 0.7 1.4 Abs Baso <0.11 k/uL 0.07 0.08 Immature Gran % % 0.8 0.8 IMMATURE GRANS (ABS) <0.10 k/uL 0.08 0.05 NRBC /100 WBC 0.0 0.0 Absolute nRBC <0.01 k/uL <0.01 <0.01 DTYPE Auto Auto Color Yellow Yellow Yellow Clarity Clear Clear Clear Glucose, Urine Negative Negative Negative Bilirubin, Urine Negative Negative Negative Ketones, Urine Negative Negative Negative Specific [place], Ur 1.005 - 1.030 1.027 1.028 Hemoglobin/Blood,Ur Negative Negative Negative pH, Urine <8.5 7.0 6.0 Protein, Urine Negative 2+ ! Trace ! Urobilinogen 0.2-1.0 EU/dL Negative 0.2 EU/dL Nitrites Negative Negative Negative Leukest Negative Negative Negative WBC, Urine 0-5 /HPF 0-5 /HPF 0-5 /HPF RBC, Urine 0-2 /HPF 0-3 /HPF 0-2 /HPF Bacteria Negative /HPF Negative Epithelial Cells /HPF Few None Seen Hyaline Cast 0 /LPF 0 /LPF Protein, Total 6.3 - 8.0 g/dL 7.0 6.7 6.7 Albumin 3.9 - 4.9 g/dL 4.4 4.1 4.0 Calcium 8.5 - 10.2 mg/dL 9.6 9.3 Bilirubin, Total 0.2 - 1.3 mg/dL 0.4 0.3 0.5 Alkaline Phosphatase 34 - 123 U/L 62 63 62 AST 13 - 35 U/L 27 24 32 ALT 7 - 38 U/L 39 (H) 34 32 Glucose 74 - 99 mg/dL 84 130 (H) BUN 7 - 21 mg/dL 16 21 Creatinine 0.58 - 0.96 mg/dL 0.83 0.84 Sodium 136 - 144 mmol/L 140 140 Potassium 3.7 - 5.1 mmol/L 4.6 4.7 Chloride 98 - 107 mmol/L 104 104 CO2 22 - 30 mmol/L 23 24 Anion Gap 8 - 15 mmol/L 13 12 eGFR >=60 mL/min/1.73m 78 76 Total Cholesterol, Nonfasting <200 mg/dL 117 145 181 Triglycerides, Nonfasting <150 mg/dL 114 128 134 HDL Cholesterol, Nonfasting >39 mg/dL 47 55 45 LDL Cholesterol, Nonfasting <100 mg/dL 47 64 109 (H) Non HDL Cholesterol, Nonfasting <130 mg/dL 70 90 136 (H) VLDL Cholesterol, Nonfasting <30 mg/dL 23 26 27 Total Chol/HDL Ratio, Nonfasting <5.10 mg/dL 2.49 2.64 4.02 LDL/HDL Ratio, Nonfasting <2.54 mg/dL 1.00 1.16 2.42 Bilirubin, Direct <0.2 mg/dL <0.2 Creatinine, Ur Random (UCRR) 20.0 - 300.0 mg/dL 174.5 140.3 Albumin, Urine Random mg/L 27.4 17.5 Albumin/Creat Ratio <30 mg/g 16 12 Hemoglobin A1C 4.3 - 5.6 % 5.6 5.6 5.7 (H) Estimated Average Glucose mg/dL 114 114 117 A/P ASSESSMENT/PLAN: 1. Well adult exam - ICD9: V70.0, ICD10: Z00.00 (primary diagnosis) - Counseled on healthy diet and regular exercise - Discussed need and benefit for weight loss. BMI 42.75 kg/(m^2) - Follow up for annual exam in one year - advised on Flu, COVID and RSV. 2. Controlled type 2 diabetes mellitus without complication, without long-term current use of insulin (HCC) - ICD9: 250.00, ICD10: E11.9 - Controlled - Counseled on healthy diet and regular exercise - Discussed need for and benefit of weight loss. BMI 42.75 kg/(m^2) 3. Diabetic eye exam (HCC) - ICD9: V72.0, 250.00, ICD10: Z01.00, E11.9 - up to date 4. Essential hypertension - ICD9: 401.9, ICD10: I10 - Controlled - Continue current medications - Recommend home blood pressure monitoring, to bring results to next visit - Encouraged sodium restriction, DASH or Mediterranean diet - Recommend regular aerobic exercise - Discussed need for and benefit of weight loss. BMI 42.75 kg/(m^2) - LISINOPRIL 10 MG TABLET 5. Mixed hyperlipidemia - ICD9: 272.2, ICD10: E78.2 - Controlled - Worsening control - Continue current medications. Will change lipitor to a 10 mg tab to improve compliance. - Counseled on healthy diet and regular exercise 6. Polyarthralgia - ICD9: 719.49, ICD10: M25.50 - on meds and managed per Rheum 7. Rheumatoid arthritis involving multiple sites, unspecified whether rheumatoid factor present (HCC) - ICD9: 714.0, ICD10: M06.9 - as per #6 8. Fibromyalgia - ICD9: 729.1, ICD10: M79.7 - as per #6 9. Hirsutism - ICD9: 704.1, ICD10: L68.0 - cont Aldactone. 10. Obesity, Class III, BMI 40-49.9 (morbid obesity) (HCC) - ICD9: 278.01, ICD10: E66.01 Weight decreasing - Behavioral intervention 11. Pancreatic cyst - ICD9: 577.2, ICD10: K86.2 Check - MRI PANC/OTONIEL WO/W IVCON - MRI 3D POST PROCESSING - IV CONTRAST (RADIOLOGY PROCEDURE) 12. Advance directive discussed with patient - ICD9: V65.49, ICD10: Z71.89 - packets provided. Requested Prescriptions Pending Prescriptions Disp Refills lisinopril (PRINIVIL) 10 mg tablet 90 tablet 1 Sig: Take 1 tablet by mouth once daily. iv contrast (will be provided with radiology test) 1 Each 0 Sig: MRI PANC/OTONIEL Inject, intravenously, once for 1 dose. No IV access, insert saline lock prior to the beginning of sedation, infusion, injection of imaging exam. Discontinue saline lock post exam. If Pt. has a central line or IVAD, may access for administration according to line specific nursing protocol. Once exam is complete flush line and de-access according to line specific nursing protocol in the MR contrast administration guidelines link. atorvastatin (LIPITOR) 10 mg tablet 90 tablet 1 Sig: Take 1 tablet by mouth once daily. F/u 6 months routine check Lipid and A1c prior Laurent Pagan MD documented in this encounter [facility] 05-22-2024 History of Present illness Narrative Scan on 05/21/2024 6:15 PM by Irma Romero PA-C: Marly Espitia MA documented in this encounter [facility] 05-20-2024 History of Present illness Narrative Scan on 05/18/2024 11:56 AM by Irma Romero PA-C: X-ray Scan on 05/18/2024 11:58 AM by Irma Romero PA-C: X-ray documented in this encounter [facility] 05-15-2024 History of Present illness Narrative Chief Complaint Patient presents with: Recheck: cough HPI Kate Coffey is a 68 year old female who presents here today for Above Complaints.. Patient was seen on 05/07 at due to 1 week of sinus and chest congestion. She was given steroid and albuterol as well as cough suppressant. Covid/flu negative and CXR was normal. No fevers. Patient continues to have cough. Productive with thick phlegm. Yesterday she noted some green in her phlegm. A little shortness of breath No chest pain. No n/v. Did have 1 episode of post-tussive emesis yesterday. Past medical history, appointments, medications, allergies reviewed. Previous Medical History PAST MEDICAL HISTORY 07/06/2022: Advance directive discussed with patient Comment: Discussed 06/2022 No date: Arthritis 12/12/2017: Class 2 obesity due to excess calories without serious comorbidity with body mass index (BMI) of 39.0 to 39.9 in adult 12/12/2017: Controlled type 2 diabetes mellitus without complication, without long-term current use of insulin ([facility]) No date: Depression 06/08/2018: Diabetic eye exam ([facility]) Comment: Last done: 01/03/22: No Retinopathy [facility] 07/2023: Diverticulitis No date: Dysmetabolic syndrome X Comment: She has this syndrome since 1994. No date: Essential hypertension 06/01/2021: Fibromyalgia 09/18/2023: Hemangioma of liver Comment: Right lob: MRI 09/2023 No date: Hirsutism No date: Migraine No date: Mixed hyperlipidemia 12/12/2017: Obesity, Class III, BMI 40-49.9 (morbid obesity) ([facility]) 09/18/2023: Pancreatic cyst Comment: MRI: 09/2023 needs repeat imaging in 09/2024 No date: Plantar fasciitis 09/26/2018: Polyarthralgia Comment: Seeing Dr. Montenegro 06/01/2021: Rheumatoid arthritis involving multiple sites ([facility]) Comment: Dr. Quigley 12/02/2020: Well adult exam Comment: Last done: 02/27/2019 Previous Surgical History PAST SURGICAL HISTORY No date: CARPAL TUNNEL; Right Comment: 09/28/201802/2016: COLONOSCOPY Comment: repeat 5 years 05/09/2013: COLONOSCOPY FLX DX W/COLLJ SPEC WHEN PFRMD Comment: Colonoscopy 06/30/2021: COLONOSCOPY FLX DX W/COLLJ SPEC WHEN PFRMD No date: PAST SURGICAL HISTORY OF Comment: heel spur No date: PAST SURGICAL HISTORY OF Comment: wisdom teeth Family History FAMILY HISTORY Problem Relation Age of Onset other (meningitis) Mother encephalitis other (bladder cancer) Father Diabetes Sister Heart Sister AICD Detached Retina Brother Diabetes Brother Colon Polyps Brother COPD Brother Diabetes Maternal Grandmother Heart Maternal Grandmother Diabetes Paternal Grandmother Diabetes Paternal Grandfather Patient Allergies ALLERGIES Allergen Reactions Dolobid [Diflunisal] Rash Current Medications Current Outpatient Medications on File Prior to Visit Medication Sig albuterol HFA (PROVENTIL HFA, VENTOLIN HFA) 90 mcg/actuation inhaler Inhale 2 Puffs as instructed every 6 hours as needed for wheezing/shortness of breath. spironolactone (ALDACTONE) 25 mg tablet Take 0.5 tablets by mouth once daily. lisinopril (PRINIVIL) 10 mg tablet Take 1 tablet by mouth once daily. atorvastatin (LIPITOR) 20 mg tablet Take 0.5 tablets by mouth once daily. mometasone (NASONEX) 50 mcg/actuation nasal spray Use 2 Sprays in the nose once daily. Rinse mouth after use. MAGNESIUM ORAL Take by mouth as directed. BIOTIN ORAL Take by mouth. etanercept (ENBREL) 25 mg (1 mL) injection Inject 0.4 mg/kg/dose subcutaneously one time only. weekly predniSONE (DELTASONE) 2.5 mg tablet Take 1 tablet by mouth once daily. Take ten tabs by mouth on day one and reduce by one a day till done. folic acid 1 mg tablet Take 1 mg by mouth once daily. Take 2 tablets daily DULoxetine (CYMBALTA) 30 mg capsule Take 30 mg by mouth once daily. METHOTREXATE ORAL Take 5 mg by mouth. Take 1 tablet weekly calcium citrate-vitamin D3 (CALCIUM CITRATE + D) 315-200 mg-unit tab Take 1 tablet by mouth twice daily with meals. ascorbic acid, vitamin C, (VITAMIN C) 500 mg tablet Take 500 mg by mouth once daily. aspirin, enteric coated (ASPIRIN, ENTERIC COATED) 81 mg EC tablet Take 81 mg by mouth once daily. multivitamin tablet Take 1 tablet by mouth once daily. acetaminophen (TYLENOL) 500 mg tablet Take 500 mg by mouth daily at bedtime. albuterol HFA (PROVENTIL HFA, VENTOLIN HFA) 90 mcg/actuation inhaler Inhale 2 Puffs as instructed every 6 hours as needed for wheezing/shortness of breath. No current facility-administered medications on file prior to visit. Social History Social History Tobacco Use Smoking status: Never Smokeless tobacco: Never Vaping Use Vaping Use: Never used Substance Use Topics Alcohol use: Not Currently Comment: rarely Drug use: No Review of Symptoms REVIEW OF SYSTEMS See hpi EXAM: BP 110/70 (BP Site: Left Arm, BP Position: Sitting, BP Cuff Size: Large Adult) Pulse 90 Temp 36.9 C (98.5 F) Resp 18 Wt 104.8 kg (231 lb) SpO2 95% BMI 44.37 kg/m General Appearance: Well appearing, alert, in no acute distress, well-hydrated, well nourished.. Ears: External ears normal, canals clear. Nose/Sinuses: Nares normal, septum midline, mucosa normal, no drainage or sinus tenderness. Oropharynx: Lips, mucosa, and tongue normal, teeth and gums normal, oropharynx normal. Neck: Supple, no adenopathy; thyroid symmetric, normal size, no bruits. Lungs: Lungs clear to auscultation. No wheezing, rhonchi, rales.. Heart: RRR without murmur, gallop, or rubs. No ectopy. Health Maintenance List Depression Screening Never done Anxiety Screening Never done RSV Vaccine(1 - 1-dose 60+ series) Never done Cervical Cancer Screening due on 03/16/2019 Covid-19 Vaccine(2022- season) due on 09/22/2023 Advance Directive Discussion due on 10/16/2023 Influenza Vaccine(1) due on 06/16/2024 Urine Albumin:Creatinine Ratio due on 06/26/2024 Diabetic Foot Exam due on 06/26/2024 HbA1C due on 06/28/2024 Dilated Retinal Exam due on 12/25/2024 LDL Cholesterol due on 12/26/2024 Annual PCP Team Chronic Disease Visit due on 12/26/2024 Mammogram Screening due on 01/22/2025 BP Controlled (<130/80) due on 05/07/2025 Colorectal Cancer Screening due on 06/30/2026 DTaP,Tdap,Td Vaccine(4 - Td or Tdap) due on 06/01/2031 Bone Density Screening Completed Hepatitis C Screening Completed Shingrix Vaccine Completed Pneumococcal Vaccine: 65+ Completed Data reviewed ASSESSMENT/PLAN: 1. Bronchitis - ICD9: 490, ICD10: J40 Start atb Continue cough medication Follow up prn. Vanessa Berg PA-C documented in this encounter [facility] 05-15-2024 Telephone encounter Note Patient was seen in on 05/07/24 for URI. She is calling today due to her symptoms have not worsened but are not improving. She is taking multiple OTC medications. Same day appointment scheduled with Vanessa KEARNEY. Beatrice Mahoney RN [facility] 05-15-2024 Miscellaneous Notes Patient was seen in on 05/07/24 for URI. She is calling today due to her symptoms have not worsened but are not improving. She is taking multiple OTC medications. Same day appointment scheduled with Vanessa KEARNEY. Beatrice Mahoney RN documented in this encounter [facility] 05-08-2024 Telephone encounter Note Viewed results via el?. Anita Salmon MA [facility] 05-08-2024 Miscellaneous Notes Viewed results via [facility] [employer]. Anita Salmon MA Left message for patient to return call. Tonja Rincon MA Please let patient know she was negative for COVID flu RSV documented in this encounter [facility] 05-07-2024 Telephone encounter Note Left message for patient to return call. Tonja Rincon MA [facility] 05-07-2024 Telephone encounter Note Please let patient know she was negative for COVID flu RSV [facility] Work Phone: 05-07-2024 History of Present illness Narrative Radiology Service Progress Note PATIENT NAME: Kate Coffey DATE OF SERVICE: May 07, 2024 TIME: 10:06 AM PATIENT IDENTITY VERIFICATION COMPLETED USING TWO (2) IDENTIFIERS: Name and Date of confirmed by patient verbally. FALL SCREENING: Has the patient had 2 falls in the last year or 1 fall with injury or currently using an Ambulatory Assistive Device (Walker, Cane, Wheelchair, Crutches, etc.)? No PATIENT GENDER DATA: Female. status: : No status: NO. PATIENT RELEVANT IMPLANT DATA REVIEWED: Not Applicable PATIENT PRESENTS WITH AN IMPLANTABLE OR ATTACHED FIRESETTER: No RADIOLOGY DEPARTMENT: General X-ray: Exam(s) Completed: Chest X-Ray PERIPHERAL IV DATA: Not applicable SIGNED BY: RT Ousmane(R) May 07, 2024 10:06 AM documented in this encounter [facility] 05-07-2024 History of Present illness Narrative CC: Patient presents with: Cough: Productive cough, headache, fatigue, nasal congestion, chest congestion x 2 days HPI: Kate Coffey is a 68 year old female who presents to the office with complaint of chest congestion, head congestion, and cough, productive for a few days. Symptoms are staying the same. Associated symptoms includes fatigue. Denies nausea, vomiting , and diarrhea. Treatments tried include nothing so far. with no relief of symptoms. Sick contacts: unknown. History of asthma, frequent episodes of bronchitis, chronic bronchitis, bronchiectasis or COPD: No Smoker: No Seasonal/environmental allergies: No The ROS is otherwise negative. The patient's pmh, medications, allergies, and past visits are reviewed. PHYSICAL EXAM: BP 119/79 Pulse 91 Temp 36.7 C (98.1 F) Resp 20 Wt 107 kg (235 lb 14.3 oz) SpO2 96% BMI 45.31 kg/m General appearance: alert, cooperative, pleasant, in no acute distress Head: Normocephalic Eyes: EOM's intact, conjunctiva pink and moist, no icterus, sclera white, non-injected Ears: Right ear: External ear/canal- Normal, TM - clear with good landmarks. Left ear: External ear/canal- Normal, TM - clear with good landmarks Oropharynx:moist without lesions, No erythema, exudates or tonsillar hypertrophy. Heart: Negative. RRR without obvious murmur, gallop, or rubs. No ectopy. Lungs: clear to auscultation, without rales or wheeze, good air exchange PAST MEDICAL HISTORY Diagnosis Date Advance directive discussed with patient 07/06/2022 Discussed 06/2022 Arthritis Class 2 obesity due to excess calories without serious comorbidity with body mass index (BMI) of 39.0 to 39.9 in adult 12/12/2017 Controlled type 2 diabetes mellitus without complication, without long-term current use of insulin (HCC) 12/12/2017 Depression Diabetic eye exam (HCC) 06/08/2018 Last done: 01/03/22: No Retinopathy [facility] Diverticulitis 07/2023 Dysmetabolic syndrome 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 Essential hypertension Fibromyalgia 06/01/2021 Hemangioma of liver 09/18/2023 Right lob: MRI 09/2023 Hirsutism Migraine Mixed hyperlipidemia Obesity, Class III, BMI 40-49.9 (morbid obesity) ([facility]) 12/12/2017 Pancreatic cyst 09/18/2023 MRI: 09/2023 needs repeat imaging in 09/2024 Plantar fasciitis Polyarthralgia 09/26/[address] Montenegro Rheumatoid arthritis involving multiple sites ([facility]) 06/01/2021 Dr. Quigley Well adult exam 12/02/2020 Last done: 02/27/2019 PAST SURGICAL HISTORY Procedure Laterality Date CARPAL TUNNEL Right 09/28/2018 COLONOSCOPY 02/2016 repeat 5 years COLONOSCOPY FLX DX W/COLLJ SPEC WHEN PFRMD 05/09/2013 Colonoscopy COLONOSCOPY FLX DX W/COLLJ SPEC WHEN PFRMD 06/30/2021 PAST SURGICAL HISTORY OF heel spur PAST SURGICAL HISTORY OF wisdom teeth ALLERGIES Dolobid [Diflunisal] MEDICATIONS spironolactone (ALDACTONE) 25 mg tablet Take 0.5 tablets by mouth once daily. lisinopril (PRINIVIL) 10 mg tablet Take 1 tablet by mouth once daily. atorvastatin (LIPITOR) 20 mg tablet Take 0.5 tablets by mouth once daily. albuterol HFA (PROVENTIL HFA, VENTOLIN HFA) 90 mcg/actuation inhaler Inhale 2 Puffs as instructed every 6 hours as needed for wheezing/shortness of breath. MAGNESIUM ORAL Take by mouth as directed. BIOTIN ORAL Take by mouth. etanercept (ENBREL) 25 mg (1 mL) injection Inject 0.4 mg/kg/dose subcutaneously one time only. weekly folic acid 1 mg tablet Take 1 mg by mouth once daily. Take 2 tablets daily DULoxetine (CYMBALTA) 30 mg capsule Take 30 mg by mouth once daily. METHOTREXATE ORAL Take 5 mg by mouth. Take 1 tablet weekly calcium citrate-vitamin D3 (CALCIUM CITRATE + D) 315-200 mg-unit tab Take 1 tablet by mouth twice daily with meals. ascorbic acid, vitamin C, (VITAMIN C) 500 mg tablet Take 500 mg by mouth once daily. aspirin, enteric coated (ASPIRIN, ENTERIC COATED) 81 mg EC tablet Take 81 mg by mouth once daily. multivitamin tablet Take 1 tablet by mouth once daily. acetaminophen (TYLENOL) 500 mg tablet Take 500 mg by mouth daily at bedtime. mometasone (NASONEX) 50 mcg/actuation nasal spray Use 2 Sprays in the nose once daily. Rinse mouth after use. predniSONE (DELTASONE) 2.5 mg tablet Take 1 tablet by mouth once daily. Take ten tabs by mouth on day one and reduce by one a day till done. FAMILY HISTORY Problem Relation Age of Onset other (meningitis) Mother encephalitis other (bladder cancer) Father Diabetes Sister Heart Sister AICD Detached Retina Brother Diabetes Brother Colon Polyps Brother COPD Brother Diabetes Maternal Grandmother Heart Maternal Grandmother Diabetes Paternal Grandmother Diabetes Paternal Grandfather Social History Tobacco Use Smoking status: Never Smokeless tobacco: Never Vaping Use Vaping Use: Never used Substance Use Topics Alcohol use: Not Currently Comment: rarely Drug use: No ASSESSMENT/PLAN: 1. Acute cough - ICD9: 786.2, ICD10: R05.1 - XR CHEST 2V FRONTAL/LAT * * * * Physician Interpretation * * * * EXAMINATION: CHEST RADIOGRAPH (2 VIEW FRONTAL & LATERAL) CLINICAL HISTORY: Acute cough MQ: [id number] EXAM DATE/TIME: 05/07/2024 10:13 AM COMPARISON: No relevant prior studies available. RESULT: Lines, tubes, and devices: None. Lungs and pleura: No consolidation. No lung mass. No pleural effusion. No pneumothorax. Cardiomediastinal silhouette: Normal cardiomediastinal silhouette. Bones and soft tissues: Unremarkable. IMPRESSION IMPRESSION: No acute radiographic abnormality. [place]: DIMA Transcribe Date/Time: May 07 2024 10:21A Dictated by : MICHELL GHOTRA MD - METHYLPREDNISOLONE 4 MG TABLETS IN A DOSE PACK - ALBUTEROL SULFATE HFA 90 MCG/ACTUATION AEROSOL INHALER - BENZONATATE 100 MG CAPSULE 2. URI, acute - ICD9: 465.9, ICD10: J06.9 - COVID & INFLUENZA A/B & RSV NAAT, ROUTINE - METHYLPREDNISOLONE 4 MG TABLETS IN A DOSE PACK Was educated to monitor her blood sugars while on Medrol Dosepak Prescription instructions reviewed with patient as applicable. Potential red flag symptoms discussed with the patient. Reviewed appropriate action plan to take if red flag symptoms occur. Patient agreeable to treatment plan. Cass Espitia APRN.ELVA documented in this encounter [facility] 02-29-2024 Telephone encounter Note Patient phones for refill(s): Requested Prescriptions Pending Prescriptions Disp Refills spironolactone (ALDACTONE) 25 mg tablet 45 tablet 1 Sig: Take 0.5 tablets by mouth once daily. Date of last office visit in primary care: 12/27/2023 Date of next office visit in primary care: 06/26/2024 Hallie Page RN. [facility] 02-29-2024 Miscellaneous Notes Patient phones for refill(s): Requested Prescriptions Pending Prescriptions Disp Refills spironolactone (ALDACTONE) 25 mg tablet 45 tablet 1 Sig: Take 0.5 tablets by mouth once daily. Date of last office visit in primary care: 12/27/2023 Date of next office visit in primary care: 06/26/2024 Hallie Page RN. documented in this encounter [facility] 02-23-2024 History of Present illness Narrative Scan on 02/22/2024 12:42 PM by Provider, LINDSEY Solis: Marly Bee LPN documented in this encounter [facility] 02-07-2024 Telephone encounter Note Patient notified Mora Donovan MA [facility] 02-07-2024 Miscellaneous Notes Patient notified Mora Donovan MA Repeat mammogram is normal. Return to annual screening. The previous asymmetry is no longer seen documented in this encounter [facility] 02-07-2024 Telephone encounter Note Repeat mammogram is normal. Return to annual screening. The previous asymmetry is no longer seen [facility] 02-07-2024 History of Present illness Narrative Radiology Service Progress Note PATIENT NAME: Kate Coffey DATE OF SERVICE: February 07, 2024 TIME: 1:29 PM PATIENT IDENTITY VERIFICATION COMPLETED USING TWO (2) IDENTIFIERS: Name and Date of confirmed by patient verbally. FALL SCREENING: Has the patient had 2 falls in the last year or 1 fall with injury or currently using an Ambulatory Assistive Device (Walker, Cane, Wheelchair, Crutches, etc.)? No PATIENT GENDER DATA: Female. status: : No status: NO. PATIENT RELEVANT IMPLANT DATA REVIEWED: Not Applicable PATIENT PRESENTS WITH AN IMPLANTABLE OR ATTACHED FIRESETTER: No RADIOLOGY DEPARTMENT: Mammography PERIPHERAL IV DATA: Not applicable SIGNED BY: Red Jimenez [facility] [place] February 07, 2024 1:29 PM documented in this encounter [facility] 01-23-2024 Miscellaneous Notes Call placed to patient and results reviewed. Patient verbalized understanding. Patient transferred to schedule. Danna Meza RN Mammogram shows asymmetry in R breast. Need additional imagining. Orders placed. Vanessa Berg PA-C documented in this encounter [facility] 01-23-2024 Miscellaneous Notes January 23, 2024 PID: [id number] [address] [id number] [place] [address] Dear Ms. Lola Coffey, Your recent breast imaging exam on 01/23/2024 showed a possible finding that requires additional imaging studies for a complete evaluation. Most such findings are probably benign (not cancer). If you have a healthcare provider who ordered/prescribed your screening mammogram: Please call [phone] or [phone]: [phone] to schedule an appointment for your additional imaging (if you have not already done so). If you DO NOT have a healthcare provider (ie you did not have an order/prescription for your screening mammogram): Please call to schedule an appointment for your additional imaging (if you have not already done so). You must have an order/prescription from your physician when calling to schedule your appointment. If your order/prescription is not electronic, you must bring the hard copy with you on the day of your exam to avoid delays. Your imaging studies and reports are kept on file at [facility] as part of your permanent medical record, and are available for your continuing care. Thank you for allowing us to help in meeting your health care needs. Sincerely, Dr. Ernandez Interpreting Radiologist [facility] (Additional imaging) documented in this encounter [facility] 01-23-2024 History of Present illness Narrative Radiology Service Progress Note PATIENT NAME: Kate Coffey DATE OF SERVICE: January 23, 2024 TIME: 9:08 AM PATIENT IDENTITY VERIFICATION COMPLETED USING TWO (2) IDENTIFIERS: Name and Date of confirmed by patient verbally. FALL SCREENING: Has the patient had 2 falls in the last year or 1 fall with injury or currently using an Ambulatory Assistive Device (Walker, Cane, Wheelchair, Crutches, etc.)? No PATIENT GENDER DATA: Female. status: : No status: NO. PATIENT RELEVANT IMPLANT DATA REVIEWED: Not Applicable PATIENT PRESENTS WITH AN IMPLANTABLE OR ATTACHED FIRESETTER: No RADIOLOGY DEPARTMENT: Mammography PERIPHERAL IV DATA: Not applicable SIGNED BY: Paige Schuster January 23, 2024 9:08 AM documented in this encounter [facility] 01-15-2024 History of Present illness Narrative Scan on 01/12/2024 4:36 PM by ProviderIrma PA-C: Chemistry Scan on 01/12/2024 3:35 PM by Provider, LINDSEY Solis: Hematology /Lokesh Espitia MA documented in this encounter [facility] 12-28-2023 Miscellaneous Notes Pt notified of same. Hermilo Mohamud LPN Labs are all normal. documented in this encounter [facility] 12-27-2023 History of Present illness Narrative Chief Complaint Patient presents with: Follow Up: 6 month FU HPI Kate Coffey is a 68 year old female who presents here today for Chronic Medical Conditions.. Patient with hx of hyperlipidemia, HTN, DM2, RA, and those as below. No concerns today Past medical history, appointments, medications, allergies reviewed. 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 Essential hypertension Fibromyalgia 06/01/2021 Hemangioma of liver 09/18/2023 Right lob: MRI 09/2023 Hirsutism Migraine Mixed hyperlipidemia Obesity, Class III, BMI 40-49.9 (morbid obesity) ([facility]) 12/12/2017 Pancreatic cyst 09/18/2023 MRI: 09/2023 needs repeat imaging in 09/2024 Plantar fasciitis Polyarthralgia 09/26/[address] Montenegro Rheumatoid arthritis involving multiple sites ([facility]) 06/01/2021 Dr. Quigley Well adult exam 12/02/2020 Last done: 02/27/2019 Previous Surgical History PAST SURGICAL HISTORY Procedure Laterality Date CARPAL TUNNEL Right 09/28/2018 COLONOSCOPY 02/2016 repeat 5 years COLONOSCOPY FLX DX W/COLLJ SPEC WHEN PFRMD 05/09/2013 Colonoscopy COLONOSCOPY FLX DX W/COLLJ SPEC WHEN PFRMD 06/30/2021 PAST SURGICAL HISTORY OF heel spur PAST SURGICAL HISTORY OF wisdom teeth Family History FAMILY HISTORY Problem Relation Age of Onset other (meningitis) Mother encephalitis other (bladder cancer) Father Diabetes Sister Heart Sister AICD Detached Retina Brother Diabetes Brother Colon Polyps Brother COPD Brother Diabetes Maternal Grandmother Heart Maternal Grandmother Diabetes Paternal Grandmother Diabetes Paternal Grandfather Patient Allergies ALLERGIES Allergen Reactions Dolobid [Diflunisal] Rash Current Medications Current Outpatient Medications on File Prior to Visit Medication Sig lisinopril (PRINIVIL) 10 mg tablet Take 1 tablet by mouth once daily. atorvastatin (LIPITOR) 20 mg tablet Take 0.5 tablets by mouth once daily. mometasone (NASONEX) 50 mcg/actuation nasal spray Use 2 Sprays in the nose once daily. Rinse mouth after use. albuterol HFA (PROVENTIL HFA, VENTOLIN HFA) 90 mcg/actuation inhaler Inhale 2 Puffs as instructed every 6 hours as needed for wheezing/shortness of breath. spironolactone (ALDACTONE) 25 mg tablet Take 0.5 tablets by mouth once daily. MAGNESIUM ORAL Take by mouth as directed. BIOTIN ORAL Take by mouth. etanercept (ENBREL) 25 mg (1 mL) injection Inject 0.4 mg/kg/dose subcutaneously one time only. weekly predniSONE (DELTASONE) 2.5 mg tablet Take 1 tablet by mouth once daily. Take ten tabs by mouth on day one and reduce by one a day till done. folic acid 1 mg tablet Take 1 mg by mouth once daily. Take 2 tablets daily DULoxetine (CYMBALTA) 30 mg capsule Take 30 mg by mouth once daily. METHOTREXATE ORAL Take 5 mg by mouth. Take 1 tablet weekly calcium citrate-vitamin D3 (CALCIUM CITRATE + D) 315-200 mg-unit tab Take 1 tablet by mouth twice daily with meals. ascorbic acid, vitamin C, (VITAMIN C) 500 mg tablet Take 500 mg by mouth once daily. aspirin, enteric coated (ASPIRIN, ENTERIC COATED) 81 mg EC tablet Take 81 mg by mouth once daily. multivitamin tablet Take 1 tablet by mouth once daily. acetaminophen (TYLENOL) 500 mg tablet Take 500 mg by mouth daily at bedtime. No current facility-administered medications on file prior to visit. Social History Social History Tobacco Use Smoking status: Never Smokeless tobacco: Never Vaping Use Vaping Use: Never used Substance Use Topics Alcohol use: Not Currently Comment: rarely Drug use: No Review of Symptoms REVIEW OF SYSTEMS GENERAL: No weight loss, malaise or fevers NECK: Negative for lumps, goiter, pain and significant neck swelling RESPIRATORY: Negative for cough, hemoptysis, wheezing, COPD, dyspnea or shortness of breath CARDIOVASCULAR: Negative for chest pain, leg swelling, CHF or palpitations NEURO: No history of headaches, syncope, paralysis, seizures or tremors EXAM: BP 124/66 (BP Site: Right Arm, BP Position: Sitting, BP Cuff Size: Large Adult) Pulse 80 Temp 36.7 C (98.1 F) Resp 18 Wt 105.9 kg (233 lb 6.4 oz) BMI 44.83 kg/m General Appearance: Well appearing, alert, in no acute distress, well-hydrated, well nourished.. Neck: Supple, no adenopathy; thyroid symmetric, normal size, no bruits. Lungs: Lungs clear to auscultation. No wheezing, rhonchi, rales.. Heart: RRR without murmur, gallop, or rubs. No ectopy. Extremities: No deformities, edema, skin discoloration, clubbing or cyanosis. Good capillary refill. . Peripheral Pulses: Normal. Health Maintenance List RSV Vaccine(1 - 1-dose 60+ series) Never done Mammogram Screening due on 10/22/2022 Covid-19 Vaccine(2022- season) due on 09/22/2023 Advance Directive Discussion due on 10/16/2023 Depression Assessment due on 10/16/2023 HbA1C due on 12/25/2023 Urine Albumin:Creatinine Ratio due on 06/26/2024 LDL Cholesterol due on 06/26/2024 Diabetic Foot Exam due on 06/26/2024 Annual PCP Team Chronic Disease Visit due on 08/14/2024 BP Controlled (<130/80) due on 08/14/2024 Dilated Retinal Exam due on 12/25/2024 Colorectal Cancer Screening due on 06/30/2026 DTaP,Tdap,Td Vaccine(4 - Td or Tdap) due on 06/01/2031 Bone Density Screening Completed Influenza Vaccine Completed Hepatitis C Screening Completed Shingrix Vaccine Completed Pneumococcal Vaccine: 65+ Completed Pap Testing Discontinued Data reviewed ASSESSMENT/PLAN: 1. Essential hypertension - ICD9: 401.9, ICD10: I10 (primary diagnosis) - Controlled - Continue current medications - Recommend home blood pressure monitoring, to bring results to next visit - Encouraged sodium restriction, DASH or Mediterranean diet - Recommend regular aerobic exercise - CBC + DIFF 2. Mixed hyperlipidemia - ICD9: 272.2, ICD10: E78.2 - Control undetermined, due for labs - HEPATIC FUNCTION PNL - LIPID PANEL, NONFASTING - LIPID PANEL, NONFASTING 3. Controlled type 2 diabetes mellitus without complication, without long-term current use of insulin (HCC) - ICD9: 250.00, ICD10: E11.9 - Control undetermined, due for labs - Continue current medications - HGB A1C - HEPATIC FUNCTION PNL - HGB A1C - COMP METABOLIC PANEL - URINALYSIS, WITH MICROSCOPIC - LIPID PANEL, NONFASTING - ALBUMIN/CREAT RATIO RND UR - CBC + DIFF 4. Obesity, Class III, BMI 40-49.9 (morbid obesity) (HCC) - ICD9: 278.01, ICD10: E66.01 Stable - Behavioral intervention 5. Class 2 obesity due to excess calories without serious comorbidity with body mass index (BMI) of 39.0 to 39.9 in adult - ICD9: 278.00, V85.39, ICD10: E66.09, Z68.39 stable 6. Rheumatoid arthritis involving multiple sites, unspecified whether rheumatoid factor present (HCC) - ICD9: 714.0, ICD10: M06.9 Cont with rheum Follow up in 6 months for physical Labs prior. Vanessa Berg PA-C documented in this encounter [facility] 12-26-2023 History of Present illness Narrative Scan on 12/26/2023 10:48 AM by Provider, LINDSEY Solis: Consultation - Ophthalmology documented in this encounter [facility] 09-19-2023 Miscellaneous Notes Pt called and is notified of providers results and instructions. Pt voices understanding. Bettie Martinez, HOWARD Let patient know we do not know what cause the enlarged vein but they are not indicative of anything problematic and nothing needs done. Spoke with pt and information listed below given. Pt verbalizes understanding. Pt asking what may cause the enlarged vein and is there anything she needs to do. Please advise pt. Naveen Hope LPN Left message for pt to contact office. Hermilo Mohamud LPN Let patient know the [place] of her liver shows a benign enlarged vein. It also showed a cyst in the pancrease that needs repeat imaging in a year. documented in this encounter [facility] 09-18-2023 History of Present illness Narrative Radiology Service Progress Note DATE OF SERVICE: September 18, 2023 TIME: 10:27 AM PATIENT IDENTITY VERIFICATION COMPLETED USING TWO (2) STANDARD IDENTIFIERS: Name and Date of confirmed by patient verbally. FALL SCREENING: Has the patient had 2 falls in the last year or 1 fall with injury or currently using an Ambulatory Assistive Device (Walker, Cane, Wheelchair, Crutches, etc.)? No PATIENT GENDER DATA: Female. status: : No status: NO. PATIENT RELEVANT IMPLANT DATA REVIEWED: Yes ALLERGIES: Reviewed and unchanged CONTRAST ALLERGY: NO. EXAM: MRI - CONTRAST TYPE: GROUP II PERIPHERAL IV DATA: Ambulatory: A peripheral IV was started in the Left antecubital site with a Angio cath: 22 gauge. RADIOLOGY DEPARTMENT: MR; Exam(s) Completed: Body: Liver (routine) SIGNATURE: RT Meg(R) PATIENT NAME: Kate Coffey DATE: September 18, 2023 TIME: 10:27 AM documented in this encounter [facility] 08-18-2023 Miscellaneous Notes Patient returned call and went over results, notes from Dr Pagan with understanding. Assisted with transfer to systems designer to get MRI appt set up. Left a message for pt to call the office and ask to speak to a nurse. Naveen Hope LPN Left vm for patient to return call to nurse for provider's message. Let patient know recent CT at [facility] showed a lesion in the right lobe of the liver that maybe a benign dilated vein but needs further imaging. MRI order placed. Received fax from [facility] regarding CT that completed in the ER. Needs further testing and evaluation. Patient was seen for ER hospital follow up 08/14/2023. No additional orders pended. Given to PCP for review. Lokesh Espitia MA documented in this encounter [facility] 08-14-2023 Instructions Rossy Pacheco APRN.C[employer] KNIFE CUTTER MACHINE - 08/14/2023 3:48 PM EDT What are diverticulosis and diverticulitis? Many people have small pouches in their colons that bulge outward through weak spots, like an inner tube that pokes through weak places in a tire. Each pouch is called a diverticulum. Pouches (plural) are called diverticula. The condition of having diverticula is called diverticulosis. About 10 percent of Americans over the age of 40 have diverticulosis. The condition becomes more common as people age. About half of all people over the age of 60 have diverticulosis. When the pouches become infected or inflamed, the condition is called diverticulitis. This happens in 10 to 25 percent of people with diverticulosis. Diverticulosis and diverticulitis are also called diverticular disease. What are the symptoms? Diverticulosis Most people with diverticulosis do not have any discomfort or symptoms. However, symptoms may include mild cramps, bloating, and constipation. Other diseases such as irritable bowel syndrome (IBS) and stomach ulcers cause similar problems, so these symptoms do not always mean a person has diverticulosis. You should visit your doctor if you have these troubling symptoms. Diverticulitis The most common symptom of diverticulitis is abdominal pain. The most common sign is tenderness around the left side of the lower abdomen. If infection is the cause, fever, nausea, vomiting, chills, cramping, and constipation may occur as well. The severity of symptoms depends on the extent of the infection and complications. What are the complications? Diverticulitis can lead to bleeding, infections, perforations or tears, or blockages. These complications always require treatment to prevent them from progressing and causing serious illness. Bleeding Bleeding from diverticula is a rare complication. When diverticula bleed, blood may appear in the toilet or in your stool. Bleeding can be severe, but it may stop by itself and not require treatment. Doctors believe bleeding diverticula are caused by a small blood vessel in a diverticulum that weakens and finally bursts. If you have bleeding from the rectum, you should see your doctor. If the bleeding does not stop, surgery may be necessary. Abscess, Perforation, and Peritonitis The infection causing diverticulitis often clears up after a few days of treatment with antibiotics. If the condition gets worse, an abscess may form in the colon. An abscess is an infected area with pus that may cause swelling and destroy tissue. Sometimes the infected diverticula may develop small holes, called perforations. These perforations allow pus to leak out of the colon into the abdominal area. If the abscess is small and remains in the colon, it may clear up after treatment with antibiotics. If the abscess does not clear up with antibiotics, the doctor may need to drain it. To drain the abscess, the doctor uses a needle and a small tube called a catheter. The doctor inserts the needle through the skin and drains the fluid through the catheter. This procedure is called percutaneous catheter drainage. Sometimes surgery is needed to clean the abscess and, if necessary, remove part of the colon. A large abscess can become a serious problem if the infection leaks out and contaminates areas outside the colon. Infection that spreads into the abdominal cavity is called peritonitis. Peritonitis requires immediate surgery to clean the abdominal cavity and remove the damaged part of the colon. Without surgery, peritonitis can be fatal. Fistula A fistula is an abnormal connection of tissue between two organs or between an organ and the skin. When damaged tissues come into contact with each other during infection, they sometimes stick together. If they heal that way, a fistula forms. When diverticulitis-related infection spreads outside the colon, the colon's tissue may stick to nearby tissues. The organs usually involved are the bladder, small intestine, and skin. The most common type of fistula occurs between the bladder and the colon. It affects men more than women. This type of fistula can result in a severe, long-lasting infection of the urinary tract. The problem can be corrected with surgery to remove the fistula and the affected part of the colon. Intestinal Obstruction The scarring caused by infection may cause partial or total blockage of the large intestine. When this happens, the colon is unable to move bowel contents normally. When the obstruction totally blocks the intestine, emergency surgery is necessary. Partial blockage is not an emergency, so the surgery to correct it can be planned. What causes diverticular disease? Although not proven, the dominant theory is that a low-fiber diet is the main cause of diverticular disease. The disease was first noticed in the [place] in the early 1900s. At about the same time, processed foods were introduced into the [place] diet. Many processed foods contain refined, low-fiber flour. Unlike whole-wheat flour, refined flour has no wheat bran. Diverticular disease is common in developed or industrialized countries--particularly the [place], [place], and [place]--where low-fiber diets are common. The disease is rare in countries of [place], where people eat high-fiber vegetable diets. Fiber is the part of fruits, vegetables, and grains that the body cannot digest. Some fiber dissolves easily in water (soluble fiber). It takes on a soft, jelly-like texture in the intestines. Some fiber passes almost unchanged through the intestines (insoluble fiber). Both kinds of fiber help make stools soft and easy to pass. Fiber also prevents constipation. Constipation makes the muscles strain to move stool that is too hard. It is the main cause of increased pressure in the colon. This excess pressure might cause the weak spots in the colon to bulge out and become diverticula. Diverticulitis occurs when diverticula become infected or inflamed. Doctors are not certain what causes the infection. It may begin when stool or bacteria are caught in the diverticula. An attack of diverticulitis can develop suddenly and without warning. How does the doctor diagnose diverticular disease? To diagnose diverticular disease, the doctor asks about medical history, does a physical exam, and may perform one or more diagnostic tests. Because most people do not have symptoms, diverticulosis is often found through tests ordered for another ailment. When taking a medical history, the doctor may ask about bowel habits, symptoms, pain, diet, and medications. The physical exam usually involves a digital rectal exam. To perform this test, the doctor inserts a gloved, lubricated finger into the rectum to detect tenderness, blockage, or blood. The doctor may check stool for signs of bleeding and test blood for signs of infection. The doctor may also order x rays or other tests. What is the treatment for diverticular disease? A high-fiber diet and, occasionally, mild pain medications will help relieve symptoms in most cases. Sometimes an attack of diverticulitis is serious enough to require a hospital stay and possibly surgery. Diverticulosis Increasing the amount of fiber in the diet may reduce symptoms of diverticulosis and prevent complications such as diverticulitis. Fiber keeps stool soft and lowers pressure inside the colon so that bowel contents can move through easily. The [place] [employer] recommends 20 to 35 grams of fiber each day. The table below shows the amount of fiber in some foods that you can easily add to your diet. Amount of Fiber in Some Foods Fruits Apple, raw, with skin 1 medium = 3.3 grams Gem, raw 1 medium = 1.5 grams Pear, raw 1 medium = 5.1 grams [place], raw 1 medium = 1.9 grams Vegetables Asparagus, fresh, cooked 4 danielson = 1.2 grams Broccoli, fresh, cooked 1/2 cup = 2.6 grams [place] sprouts, fresh, cooked 1/2 cup = 2 grams Cabbage, fresh, cooked 1/2 cup = 1.5 grams Carrot, fresh, cooked 1/2 cup = 2.3 grams Cauliflower, fresh, cooked 1/2 cup = 1.7 grams Hu lettuce 1 cup = 1.2 grams Spinach, fresh, cooked 1/2 cup = 2.2 grams Summer squash, cooked 1 cup = 2.5 grams Tomato, raw 1 = 1 gram Winter squash, cooked 1 cup = 5.7 grams Starchy Vegetables Baked beans, canned, plain 1/2 cup = 6.3 grams Kidney beans, fresh, cooked 1/2 cup = 5.7 grams Rojas beans, fresh, cooked 1/2 cup = 6.6 grams Potato, fresh, cooked 1 = 2.3 grams Grains Bread, whole-wheat 1 slice = 1.9 grams Brown rice, cooked 1 cup = 3.5 grams Cereal, bran flake 3/4 cup = 5.3 grams Oatmeal, plain, cooked 3/4 cup = 3 grams White rice, cooked 1 cup = 0.6 grams Source: [place] Department of Agriculture (USDA). USDA Nutrient Database for Standard Reference Release 15. Available at www.nal.usda.gov/fnic/cgi-bin/nut _search.pl. Accessed January 19, 2004. The doctor may also recommend taking a fiber product such as Citrucel or Metamucil once a day. These products are mixed with water and provide about 2 to 3.5 grams of fiber per tablespoon, mixed with 8 ounces of water. Avoidance of nuts, popcorn, and sunflower, pumpkin, preston, and sesame seeds has been recommended by physicians out of fear that food particles could enter, block, or irritate the diverticula. However, no scientific data support this treatment measure. Eating a high-fiber diet is the only requirement highly emphasized across the literature and eliminating specific foods is not necessary. The seeds in tomatoes, zucchini, cucumbers, strawberries, and raspberries, as well as poppy seeds, are generally considered harmless. People differ in the amounts and types of foods they can eat. Decisions about diet should be made based on what works best for each person. Keeping a food diary may help identify individual items in one's diet. If cramps, bloating, and constipation are problems, the doctor may prescribe a short course of pain medication. However, many medications affect emptying of the colon, an undesirable side effect for people with diverticulosis. Diverticulitis Treatment for diverticulitis focuses on clearing up the infection and inflammation, resting the colon, and preventing or minimizing complications. An attack of diverticulitis without complications may respond to antibiotics within a few days if treated early. To help the colon rest, the doctor may recommend bed rest and a liquid diet, along with a pain reliever. An acute attack with severe pain or severe infection may require a hospital stay. Most acute cases of diverticulitis are treated with antibiotics and a liquid diet. The antibiotics are given by injection into a vein. In some cases, however, surgery may be necessary. When is surgery necessary? If attacks are severe or frequent, the doctor may advise surgery. The surgeon removes the affected part of the colon and joins the remaining sections. This type of surgery, called colon resection, aims to keep attacks from coming back and to prevent complications. The doctor may also recommend surgery for complications of a fistula or intestinal obstruction. If antibiotics do not correct an attack, emergency surgery may be required. Other reasons for emergency surgery include a large abscess, perforation, peritonitis, or continued bleeding. Emergency surgery usually involves two operations. The first surgery will clear the infected abdominal cavity and remove part of the colon. Because of infection and sometimes obstruction, it is not safe to rejoin the colon during the first operation. Instead, the surgeon creates a temporary hole, or stoma, in the abdomen. The end of the colon is connected to the hole, a procedure called a colostomy, to allow normal eating and bowel movements. The stool goes into a bag attached to the opening in the abdomen. In the second operation, the surgeon rejoins the ends of the colon. Points to Remember Diverticulosis occurs when small pouches, called diverticula, bulge outward through weak spots in the colon (large intestine). The pouches form when pressure inside the colon builds, usually because of constipation. Most people with diverticulosis never have any discomfort or symptoms. The most likely cause of diverticulosis is a low-fiber diet because it increases constipation and pressure inside the colon. For most people with diverticulosis, eating a high-fiber diet is the only treatment needed. You can increase your fiber intake by eating these foods: whole grain breads and cereals; fruit like apples and peaches; vegetables like broccoli, cabbage, spinach, carrots, asparagus, and squash; and starchy vegetables like kidney beans and rojas beans. Diverticulitis occurs when the pouches become infected or inflamed and cause pain and tenderness around the left side of the lower abdomen. Additional Readings Diverticular disease. In: Pipe ML, Martha SI, Laina DESMOND. Handbook of Colon and Rectal Surgery. [place]: [employer]; 2002: 637-653. Diverticular disease. In: King WEN ed. [facility] on Digestive Health. [place], [place]: [facility]; 2000: 125-132. Shlomo JONES. Understanding diverticular disease. Ostomy Quarterly. 2002;39(2):56-57. For More Information [employer] [address] [place] [address] Phone: or [phone] Email: Internet: www.iffgd.org The U.S. Government does not endorse or favor any specific commercial product or company. Trade, proprietary, or company names appearing in this document are used only because they are considered necessary in the context of the information provided. If a product is not mentioned, the omission does not mean or imply that the product is unsatisfactory. National Digestive [employer] Information [facility] [address] [place] [address] Phone: Email: Internet: www.digestive.niddk.nih.gov The National Digestive Diseases Information Clearinghouse (NDDIC) is a service of the National [place] of Diabetes and Digestive and Kidney Diseases (NIDDK). The NIDDK is part of the National Institutes of Health of the U.S. Department of Health and Human Services. Established in 1979, the Clearinghouse provides information about digestive diseases to people with digestive disorders and to their families, health animal care supervisor, and the public. The NDDIC answers inquiries, develops and distributes publications, and works closely with professional and patient organizations and Government agencies to coordinate resources about digestive diseases. Publications produced by the Clearinghouse are carefully reviewed by both NIDDK scientists and outside experts. This publication is not copyrighted. The Clearinghouse encourages users of this publication to duplicate and distribute as many copies as desired. [facility] Publication No. [id number] July 2006 documented in this encounter [facility] 08-14-2023 History of Present illness Narrative Chief Complaint Patient presents with: ER F/U: Diverticulitis HPI Kate Coffey is a 67 year old female who presents here today for Above Complaints.. Patient presents for ER follow up. Patient was diagnosed with diverticulitis. Patient reports she was seen on 08/01 at [facility] ER and was treated with augmentin. Patient reports her symptoms have improved but she continues to have cramping intermittently. Past medical history, appointments, medications, allergies reviewed. 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 Essential hypertension Fibromyalgia 06/01/2021 Hirsutism Migraine Mixed hyperlipidemia Obesity, Class III, BMI 40-49.9 (morbid obesity) ([facility]) 12/12/2017 Plantar fasciitis Polyarthralgia 09/26/[address] Montenegro Rheumatoid arthritis involving multiple sites ([facility]) 06/01/2021 Dr. Quigley Well adult exam 12/02/2020 Last done: 02/27/2019 Previous Surgical History PAST SURGICAL HISTORY Procedure Laterality Date CARPAL TUNNEL Right 09/28/2018 COLONOSCOPY 02/2016 repeat 5 years COLONOSCOPY FLX DX W/COLLJ SPEC WHEN PFRMD 05/09/2013 Colonoscopy COLONOSCOPY FLX DX W/COLLJ SPEC WHEN PFRMD 06/30/2021 PAST SURGICAL HISTORY OF heel spur PAST SURGICAL HISTORY OF wisdom teeth Family History FAMILY HISTORY Problem Relation Age of Onset other (meningitis) Mother encephalitis other (bladder cancer) Father Diabetes Sister Heart Sister AICD Detached Retina Brother Diabetes Brother Colon Polyps Brother COPD Brother Diabetes Maternal Grandmother Heart Maternal Grandmother Diabetes Paternal Grandmother Diabetes Paternal Grandfather Patient Allergies ALLERGIES Allergen Reactions Dolobid [Diflunisal] Rash Current Medications Current Outpatient Medications on File Prior to Visit Medication Sig lisinopril (PRINIVIL) 10 mg tablet Take 1 tablet by mouth once daily. atorvastatin (LIPITOR) 20 mg tablet Take 0.5 tablets by mouth once daily. mometasone (NASONEX) 50 mcg/actuation nasal spray Use 2 Sprays in the nose once daily. Rinse mouth after use. albuterol HFA (PROVENTIL HFA, VENTOLIN HFA) 90 mcg/actuation inhaler Inhale 2 Puffs as instructed every 6 hours as needed for wheezing/shortness of breath. spironolactone (ALDACTONE) 25 mg tablet Take 0.5 tablets by mouth once daily. MAGNESIUM ORAL Take by mouth as directed. BIOTIN ORAL Take by mouth. etanercept (ENBREL) 25 mg (1 mL) injection Inject 0.4 mg/kg/dose subcutaneously one time only. weekly predniSONE (DELTASONE) 2.5 mg tablet Take 1 tablet by mouth once daily. Take ten tabs by mouth on day one and reduce by one a day till done. folic acid 1 mg tablet Take 1 mg by mouth once daily. Take 2 tablets daily DULoxetine (CYMBALTA) 30 mg capsule Take 30 mg by mouth once daily. METHOTREXATE ORAL Take 5 mg by mouth. Take 1 tablet weekly calcium citrate-vitamin D3 (CALCIUM CITRATE + D) 315-200 mg-unit tab Take 1 tablet by mouth twice daily with meals. ascorbic acid, vitamin C, (VITAMIN C) 500 mg tablet Take 500 mg by mouth once daily. aspirin, enteric coated (ASPIRIN, ENTERIC COATED) 81 mg EC tablet Take 81 mg by mouth once daily. multivitamin tablet Take 1 tablet by mouth once daily. acetaminophen (TYLENOL) 500 mg tablet Take 500 mg by mouth daily at bedtime. No current facility-administered medications on file prior to visit. Social History Social History Tobacco Use Smoking status: Never Smokeless tobacco: Never Vaping Use Vaping Use: Never used Substance Use Topics Alcohol use: Not Currently Comment: rarely Drug use: No Review of Symptoms REVIEW OF SYSTEMS SEE HPI EXAM: BP 112/70 Pulse 80 Resp 16 Wt 103.4 kg (228 lb) BMI 43.80 kg/m General Appearance: Well appearing, alert, in no acute distress, well-hydrated, well nourished.. Abdomen: Normal abdominal exam, Abdomen soft, non-tender. Bowel sounds normal. No masses, organomegaly. Health Maintenance List Hepatitis B Vaccine(1 of 3 - Risk 3-dose series) Never done RSV Vaccine(1 - 1-dose 60+ series) Never done Mammogram Screening due on 10/22/2022 Covid-19 Vaccine(2022- season) due on 09/22/2023 Dilated Retinal Exam due on 12/21/2023 HbA1C due on 12/25/2023 Urine Albumin:Creatinine Ratio due on 06/26/2024 LDL Cholesterol due on 06/26/2024 Diabetic Foot Exam due on 06/26/2024 Annual PCP Team Chronic Disease Visit due on 06/26/2024 BP Controlled (<130/80) due on 07/31/2024 Colorectal Cancer Screening due on 06/30/2026 DTaP,Tdap,Td Vaccine(4 - Td or Tdap) due on 06/01/2031 Bone Density Screening Completed Influenza Vaccine Completed Advance Directive Discussion Completed Depression Assessment Completed Hepatitis C Screening Completed Shingrix Vaccine Completed Pneumococcal Vaccine: 65+ Completed Pap Testing Discontinued ASSESSMENT/PLAN: 1. Diverticulitis - ICD9: 562.11, ICD10: K57.92 -Completed course of augmentin. -Discussed triggers including patients reports of nuts making pain worse. Rossy Pacheco APRN.CIRCULAR KNIFE CUTTER MACHINE documented in this encounter [facility] 07-31-2023 Discharge summary Note Date/Time July 31, 2023 7:57pm [facility] Medical Records Department [address] [place] [address] Emergency Department Summary 07/31/23 MR#: [id number] Acct: [id number] Name: KATE TATUM Rep #:[id number] 67 From: John Jack DO PCP: Dr. Laurent Pagan MD Status:REG ER Location: ED HPI HPI - GI History of Present Illness Chief Complaint: Abd Pain Narrative Narrative: 67-year-old female presenting with abdominal pain. She states she initially thought it was suprapubic however when she went to the urgent care today they noted she had some tenderness in the left lower quadrant. Patient does state that she is a history of diverticulosis and diverticulitis. She had a previous colonoscopy which showed this. She denies fevers or chills. She states the pain is not severe and does not want anything for pain. She does not have any urinary or vaginal complaints. No constipation or diarrhea. [facility] Medical History Diabetes mellitus, type II Fibromyalgia Hypertension Rheumatoid arthritis Home Medications aspirin 81 mg tablet,delayed release (Adult Low Dose Aspirin) 81 mg PO DAILY 03/30/18 [History Last Taken Unknown] atorvastatin 20 mg tablet 20 mg PO QHS 03/30/18 [History Last Taken Unknown] lisinopril 10 mg tablet 10 mg PO DAILY 03/30/18 [History Last Taken Unknown] spironolactone 25 mg tablet 25 mg PO DAILY 03/30/18 [History Last Taken Unknown] ascorbic acid (vitamin C) 1,000 mg tablet (Vitamin C) 1,000 mg PO DAILY 06/05/18[History Last Taken Unknown] multivitamin with folic acid 400 mcg tablet (Thera) 1 tab PO DAILY 06/05/18 [History Last Taken Unknown] tramadol 50 mg tablet 50 mg PO Q4H PRN PRN Pain 2 days #10 tabs 06/05/18 [Rx Last Taken Unknown] Vitamin D3 05/14/21 [History Last Taken Unknown] hydroxychloroquine 200 mg tablet 200 mg PO DAILY 05/14/21 [History Last Taken Unknown] prednisone 2.5 mg tablet 2.5 mg PO DAILY 05/14/21 [History Last Taken Unknown] Allergy/AdvReac Type Severity Reaction Status Date / Time diflunisal [From Dolobid] Allergy Rash Verified 07/31/23 16:49 Social History household members: family Smoking Status: Never smoker ROS ROS ED Constitutional Constitutional ED: Denies chills, fever(s) or sweats Eyes Eyes: Denies blurry vision or change in vision ENT ENT ED: Denies ear pain or sore throat Cardiovascular Cardiovascular: Denies chest pain, palpitations or racing heartbeat Respiratory/Chest Respiratory/Chest: Denies cough, dyspnea or sputum Gastrointestinal Gastrointestinal: Reports abdominal pain; Denies constipation, diarrhea, nausea or vomiting Genitourinary Genitourinary ED: Denies dysuria, hematuria or urinary frequency Musculoskeletal Musculoskeletal: Denies arthralgias, myalgias or neck pain Integumentary Denies abscess, Abrasions or rash Neurologic Neurologic: Denies headache(s), paresthesias or weakness Psychiatric Psychiatric: Denies anxiety, depression, suicidal ideation or suicidal thoughts Endocrine Endocrinology: Denies polydipsia or polyuria EXAM Physical Exam Const Vital Signs: 07/31/23 16:49 Temperature 97.2 F L Temperature Source Temporal Pulse Rate 104 H Respiratory Rate 16 Blood Pressure 141/94 H Blood Pressure Mean 109 Pulse Ox 98 Oxygen Delivery Method Room Air Positive well nourished General Appearance ED: NAD HEENT Reports moist mucous membranes normocephalic and atraumatic Eyes PERRL Resp normal respiratory effort Cardio regular rate and regular rhythm GI Palpation: tender LLQ Back/Spine no CVA tenderness Neuro CN's II-XII intact bilaterally and moves all extremities Sensorium / Orientation: alert Motor Exam: strength 5/5 throughout Psych mental status grossly normal and thought process normal Skin no wounds General Skin Exam: Negative for jaundice MDM MDM MDM Narrative Medical decision making narrative: Patient presenting with left lower quadrant abdominal pain. Differential includes UTI, pyelonephritis, diverticulitis, colitis, constipation, kidney stone, pancreatitis. CBC was obtained to assess white blood cell count, hemoglobin, platelets. MP to assess liver function, renal function, electrolytes, glucose. Lipase to assess for pancreatitis. Urinalysis to assessfor UTI. Analgesia. White blood cell count back at 15.5. Platelets normal at 272. Hemoglobin normal at 14. LFTs and renal function are all within normal limits. Urinalysis negative for infection. CT of the abdomen pelvis IV contrast shows acute sigmoid diverticulitis without abscess or perforation to suggest that it is complex. Patient be started on the first dose of Augmentin here. She is given Augmentin for home. She is given return precautions. Impression: 1. Leukocytosis 2. Acute uncomplicated sigmoid diverticulitis Lab Data Attestation: I reviewed the patient's lab results. Labs: Laboratory Results - last 24 hr 07/31/23 07/31/23 17:39 18:55 WBC 15.5 H RBC 4.55 Hgb 14.0 Hct 43.4 MCV 95.4 MCH 30.8 MCHC 32.3 RDW Std Deviation 45.7 H RDW Coeff of Ramo 13.2 Plt Count 272 MPV 10.1 Immature Gran % (Auto) 1.200 H Neut % (Auto) 71.6 H Lymph % (Auto) 15.3 L [place] % (Auto) 9.6 Eos % (Auto) 1.7 Baso % (Auto) 0.6 Absolute Neuts (auto) 11.1 H Absolute Lymphs (auto) 2.38 Nucleated RBC % 0 Sodium 135 L Potassium 4.5 Chloride 101 Carbon Dioxide 26.0 Anion Gap 8 BUN 14 Creatinine 0.92 Estim Creat Clear Calc 47.57 Est GFR (MDRD) Af Amer 78 Est GFR (MDRD) Non-Af 65 BUN/Creatinine Ratio 15.2 Glucose 102 Calcium 9.3 Total Bilirubin 1.00 AST 25 ALT 35 Alkaline Phosphatase 64 Total Protein 7.3 Albumin 3.5 Globulin 3.8 Albumin/Globulin Ratio 0.9 Lipase 28 Urine Color Yellow Urine Clarity Clear Urine pH 7.0 Ur Specific [place] 1.005 Urine Protein 15 H Urine Glucose (UA) Normal Urine Ketones Negative Urine Occult Blood 10 H Urine Nitrite Negative Urine Bilirubin Negative Urine Urobilinogen Normal Ur Leukocyte Esterase 100 H Urine RBC 0-5 SEEN Urine WBC 0-5 SEEN Ur Squamous Epith Cells 0 SEEN Urine Bacteria 0 SEEN Urine Mucus 0 SEEN Radiography Diagnostic Testing: Clinical Impression(s) from Imaging Studies Abdomen/Pelvis CT 07/31/23 17:32 IMPRESSION: Diverticulitis of the descending colon without abscess or perforation. Suspect hemangiomas the posterior segment right lobe of the liver and correlation with liver mass protocol CT or MRI is recommended. Small hiatal hernia. Electronically Signed: Henry Villagran MD at 19:23 EDT , Discharge Plan Triage Chief Complaint: Abd Pain ED Provider: John Jack Dx/Rx/DC Orders Instructions: ED Diverticulitis Prescriptions: No Action atorvastatin 20 MG tablet 20 mg PO QHS Patient Comments: TAKE 0.05 TABLET(S) EVERY DAY BY ORAL ROUTE. aspirin [Adult Low Dose Aspirin] 81 MG tablet,delayed release (DR/EC) 81 mg PO DAILY spironolactone 25 MG tablet 25 mg PO DAILY Patient Comments: TAKE 1/2 TABLET BY MOUTH ONCE DAILY lisinopril 10 MG tablet 10 mg PO DAILY Patient Comments: TAKE 1 TABLET BY MOUTH EVERY DAY ascorbic acid (vitamin C) [Vitamin C] 1,000 MG tablet 1,000 mg PO DAILY multivitamin with folic acid [Thera] 1 TABLET tablet 1 tab PO DAILY tramadol 50 MG tablet 50 mg PO Q4H PRN PRN (Reason: Pain) 2 Days Qty: 10 0RF prednisone 2.5 mg tablet 2.5 mg PO DAILY Patient Comments: TAKE 1 TABLET BY MOUTH EVERY DAY hydroxychloroquine 200 mg tablet 200 mg PO DAILY Patient Comments: Take one tablet two times a day. Vitamin D3 Primary Care Provider: Laurent Pagan Referrals: Laurent Pagan MD [Primary Care Provider] - Disposition Disposition: Home, Self Care What to do if you have Problems For any increased pain, shortness of breath, bleeding, nausea or vomiting, chestpain, or any unexpected problems, contact your Primary Care Provider. Call [facility] ([phone]) or report to the closest Emergency Room. Call 911 if necessary. 07/31/231955 <Electronically signed by John Jack DO> Cosigner Signature (if applicable): CC: Dr. Laurent Pagan MD ~ Signed [facility] Work Phone: [phone] 222-592510-16-2023 History of Present illness Narrative* Laurent Rose, RUBY.CIRCULAR KNIFE CUTTER MACHINE - 07/31/2023 11:58 AM EDT Subjective HPI Nontoxic-appearing female presents urgent care chief plaint lower abdominal pain. Duration of symptoms 3 days. Associated symptoms worsening left lower abdominal pain. Presents today for evaluation. States does have some mild dysuria. Concerned about possible UTI. Has not used any OTC medications today. Denies any fevers productive cough chest pain shortness of breath or rashes. Past medical history prescription medications allergies reviewed. .Patient presents with: Urinary Frequency: With lower abd pain, burning x3 days PAST MEDICAL HISTORY Diagnosis Date Advance directive discussed with patient 07/06/2022 Discussed 06/2022 Arthritis Class 2 obesity due to excess calories without serious comorbidity with body mass index (BMI) of 39.0 to 39.9 in adult 12/12/2017 Controlled type 2 diabetes mellitus without complication, without long-term current use of insulin ([facility]) 12/12/2017 Depression Diabetic eye exam ([facility]) 06/08/2018 Last done: 01/03/22: No Retinopathy [facility] Dysmetabolic syndrome 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 Essential hypertension Fibromyalgia 06/01/2021 Hirsutism Migraine Mixed hyperlipidemia Obesity, Class III, BMI 40-49.9 (morbid obesity) ([facility]) 12/12/2017 Plantar fasciitis Polyarthralgia 09/26/[address] Montenegro Rheumatoid arthritis involving multiple sites ([facility]) 06/01/2021 Dr. Quigley Well adult exam 12/02/2020 Last done: 02/27/2019 PAST SURGICAL HISTORY Procedure Laterality Date CARPAL TUNNEL Right 09/28/2018 COLONOSCOPY 02/2016 repeat 5 years COLONOSCOPY FLX DX W/COLLJ SPEC WHEN PFRMD 05/09/2013 Colonoscopy COLONOSCOPY FLX DX W/COLLJ SPEC WHEN PFRMD 06/30/2021 PAST SURGICAL HISTORY OF heel spur PAST SURGICAL HISTORY OF wisdom teeth ALLERGIES Dolobid [Diflunisal] MEDICATIONS acetaminophen (TYLENOL) 500 mg tablet Take 500 mg by mouth daily at bedtime. albuterol HFA (PROVENTIL HFA, VENTOLIN HFA) 90 mcg/actuation inhaler Inhale 2 Puffs as instructed every 6 hours as needed for wheezing/shortness of breath. ascorbic acid, vitamin C, (VITAMIN C) 500 mg tablet Take 500 mg by mouth once daily. aspirin, enteric coated (ASPIRIN, ENTERIC COATED) 81 mg EC tablet Take 81 mg by mouth once daily. atorvastatin (LIPITOR) 20 mg tablet Take 0.5 tablets by mouth once daily. BIOTIN ORAL Take by mouth. calcium citrate-vitamin D3 (CALCIUM CITRATE + D) 315-200 mg-unit tab Take 1 tablet by mouth twice daily with meals. DULoxetine (CYMBALTA) 30 mg capsule Take 30 mg by mouth once daily. etanercept (ENBREL) 25 mg (1 mL) injection Inject 0.4 mg/kg/dose subcutaneously one time only. weekly folic acid 1 mg tablet Take 1 mg by mouth once daily. Take 2 tablets daily lisinopril (PRINIVIL) 10 mg tablet Take 1 tablet by mouth once daily. MAGNESIUM ORAL Take by mouth as directed. METHOTREXATE ORAL Take 5 mg by mouth. Take 1 tablet weekly mometasone (NASONEX) 50 mcg/actuation nasal spray Use 2 Sprays in the nose once daily. Rinse mouth after use. multivitamin tablet Take 1 tablet by mouth once daily. predniSONE (DELTASONE) 2.5 mg tablet Take 1 tablet by mouth once daily. Take ten tabs by mouth on day one and reduce by one a day till done. spironolactone (ALDACTONE) 25 mg tablet Take 0.5 tablets by mouth once daily. FAMILY HISTORY Problem Relation Age of Onset other (meningitis) Mother encephalitis other (bladder cancer) Father Diabetes Sister Heart Sister AICD Detached Retina Brother Diabetes Brother Colon Polyps Brother COPD Brother Diabetes Maternal Grandmother Heart Maternal Grandmother Diabetes Paternal Grandmother Diabetes Paternal Grandfather Social History Tobacco Use Smoking status: Never Smokeless tobacco: Never Vaping Use Vaping Use: Never used Substance Use Topics Alcohol use: Not Currently Comment: rarely Drug use: No BP 113/74 Pulse 89 Temp 36.4 C (97.6 F) Resp 18 Wt 103.5 kg (228 lb 3.2 oz) SpO2 96% BMI 43.83 kg/m Review of Systems Constitutional: Negative for chills, fever and malaise/fatigue. HENT: Negative for congestion, ear discharge, ear pain, sinus pain and sore throat. Eyes: Negative for blurred vision, pain, discharge and redness. Respiratory: Negative for cough, hemoptysis, sputum production, shortness of breath, wheezing and stridor. Cardiovascular: Negative for chest pain. Gastrointestinal: Positive for abdominal pain. Negative for diarrhea, nausea and vomiting. Genitourinary: Positive for dysuria. Negative for flank pain, frequency, hematuria and urgency. Musculoskeletal: Negative for myalgias. Skin: Negative for itching and rash. Neurological: Negative for dizziness and headaches. Objective Physical Exam Constitutional: General: She is not in acute distress. Appearance: She is not toxic-appearing. HENT: Head: Normocephalic. Nose: Nose normal. Eyes: Pupils: Pupils are equal, round, and reactive to light. Cardiovascular: Rate and Rhythm: Normal rate. Pulmonary: Effort: Pulmonary effort is normal. No respiratory distress. Abdominal: Tenderness: There is abdominal tenderness. There is guarding. There is no right CVA tenderness, left CVA tenderness or rebound. Musculoskeletal: Cervical back: Normal range of motion. Skin: General: Skin is warm and dry. Neurological: General: No focal deficit present. Mental Status: She is alert. ASSESSMENT/PLAN: 1. Urinary frequency - ICD9: 788.41, ICD10: R35.0 (primary diagnosis) - UA DIP, URINE (POC) 2. Left lower quadrant abdominal pain - ICD9: 789.04, ICD10: R10.32 Patient had significant left lower quadrant pain with palpation. Unable to obtain a stat CT day today. Concerned about diverticulitis. Patient referred to ED. Verbalized understand agrees plan of care. Laurent Rose APRN.ELVA [facility] Miscellaneous Notes* Telephone Encounter - Bettie Martinez RN - 07/04/2023 10:30 AM EDT Pt called and is notified of providers results and instructions. Pt voices understanding. Bettie Martinez RN * Telephone Encounter - Laurent Pagan MD - 06/29/2023 11:13 PM EDT Let patient know lipid panel, electrolytes, liver functions, kidney functions, blood count and A1c were all good. Her UA shows an increase in protein spilling and want to repeat in a month. Order placed. [facility] History of Present illness Narrative* Laurent Pagan MD - 06/26/2023 2:20 PM EDT Images from the original note were not included. Chief Complaint Patient presents with: Physical HPI Kate Coffey is a 67 year old female who presents here today for Chronic Medical Conditions. and Annual Visit. Patient with hx of HTN, hyperlipidemia, DM2, RA, obesity and those as below. Controlled type 2 diabetes mellitus without complication. Last A1C was 5.7. Foot Exam due.Last eye exam 12/2022 with Gamal Negro. Counseled on healthy diet and regular exercise Mixed hyperlipidemia -- under good control with Atorvastatin 20 mg half tablet daily Essential hypertension - ICD9: 401.9, ICD10: I10 good control control with Lisinopril 10 mg daily with Spironolactone 25 mg half tablet daily. Rheumatoid arthritis involving multiple sites Patient see Dr. Moran. Last O/V 01/30/2023. TakingEnbrel injection once week. No specific concerns today. Past medical history, appointments, medications, allergies reviewed. 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 Essential hypertension Fibromyalgia 06/01/2021 Hirsutism Migraine Mixed hyperlipidemia Plantar fasciitis Polyarthralgia 09/26/[address] Montenegro Rheumatoid arthritis involving multiple sites (HCC) 06/01/2021 Dr. Quigley Well adult exam 12/02/2020 Last done: 02/27/2019 Previous Surgical History PAST SURGICAL HISTORY Procedure Laterality Date CARPAL TUNNEL Right 09/28/2018 COLONOSCOPY 02/2016 repeat 5 years COLONOSCOPY FLX DX W/COLLJ SPEC WHEN PFRMD 05/09/2013 Colonoscopy COLONOSCOPY FLX DX W/COLLJ SPEC WHEN PFRMD 06/30/2021 PAST SURGICAL HISTORY OF heel spur PAST SURGICAL HISTORY OF wisdom teeth Family History FAMILY HISTORY Problem Relation Age of Onset other (meningitis) Mother encephalitis other (bladder cancer) Father Diabetes Sister Heart Sister AICD Detached Retina Brother Diabetes Brother Colon Polyps Brother COPD Brother Diabetes Maternal Grandmother Heart Maternal Grandmother Diabetes Paternal Grandmother Diabetes Paternal Grandfather Patient Allergies ALLERGIES Allergen Reactions Dolobid [Diflunisal] Rash Current Medications Current Outpatient Medications on File Prior to Visit Medication Sig mometasone (NASONEX) 50 mcg/actuation nasal spray Use 2 Sprays in the nose once daily. Rinse mouth after use. albuterol HFA (PROVENTIL HFA, VENTOLIN HFA) 90 mcg/actuation inhaler Inhale 2 Puffs as instructed every 6 hours as needed for wheezing/shortness of breath. spironolactone (ALDACTONE) 25 mg tablet Take 0.5 tablets by mouth once daily. lisinopril (PRINIVIL) 10 mg tablet Take 1 tablet by mouth once daily. atorvastatin (LIPITOR) 20 mg tablet Take 0.5 tablets by mouth once daily. MAGNESIUM ORAL Take by mouth as directed. BIOTIN ORAL Take by mouth. etanercept (ENBREL) 25 mg (1 mL) injection Inject 0.4 mg/kg/dose subcutaneously one time only. weekly predniSONE (DELTASONE) 2.5 mg tablet Take 1 tablet by mouth once daily. Take ten tabs by mouth on day one and reduce by one a day till done. folic acid 1 mg tablet Take 1 mg by mouth once daily. Take 2 tablets daily DULoxetine (CYMBALTA) 30 mg capsule Take 30 mg by mouth once daily. METHOTREXATE ORAL Take 5 mg by mouth. Take 1 tablet weekly calcium citrate-vitamin D3 (CALCIUM CITRATE + D) 315-200 mg-unit tab Take 1 tablet by mouth twice daily with meals. ascorbic acid, vitamin C, (VITAMIN C) 500 mg tablet Take 500 mg by mouth once daily. aspirin, enteric coated (ASPIRIN, ENTERIC COATED) 81 mg EC tablet Take 81 mg by mouth once daily. multivitamin tablet Take 1 tablet by mouth once daily. acetaminophen (TYLENOL) 500 mg tablet Take 500 mg by mouth daily at bedtime. No current facility-administered medications on file prior to visit. Social History Social History Tobacco Use Smoking status: Never Smokeless tobacco: Never Vaping Use Vaping Use: Never used Substance Use Topics Alcohol use: Not Currently Comment: rarely Drug use: No Review of Symptoms REVIEW OF SYSTEMS GENERAL: No weight loss, malaise or fevers HEENT: Negative for frequent or significant headaches, No changes in hearing or vision, no nose bleeds or other nasal problems NECK: Negative for lumps, goiter, pain and significant neck swelling RESPIRATORY: Negative for cough, hemoptysis, wheezing, COPD, dyspnea or shortness of breath CARDIOVASCULAR: Negative for chest pain, increased leg swelling, hypertension, CHF or palpitations GI: No nausea, vomiting, or increased occasional diarrhea, No heartburn or reflux symptoms, and no blood : No history of dysuria, frequency or blood. Some urgency. MUSCULOSKELETAL: Negative for new or changes in her typical joint pain or swelling, back pain or muscle pain SKIN: Negative for lesions, rash, and itching PSYCH: Negative for sleep disturbance, mood disorder and recent psychosocial stressors HEMATOLOGY/LYMPHOLOGY: Negative for prolonged bleeding, bruising easily or swollen nodes ENDOCRINE: Negative for cold or heat intolerance, symptoms of low BS's NEURO: No history of headaches, syncope, paralysis, seizures. Some tremors when taking pictures. EXAM: BP 124/74 (BP Site: Left Arm, BP Position: Sitting, BP Cuff Size: Large Adult) Pulse 82 Resp 16 Ht 153.7 cm (5' 0.5) Wt 103 kg (227 lb) BMI 43.60 kg/m Last 5 Encounter Wt Readings: Date: Wt: 06/26/2023 103 kg (227 lb) 04/21/2023 104.4 kg (230 lb 3.2 oz) 01/04/2023 103.7 kg (228 lb 9.6 oz) 01/03/2023 103.9 kg (229 lb) 07/06/2022 101.6 kg (224 lb) General Appearance: Well appearing, alert, in no acute distress, well-hydrated, well nourished. andMorbidly obese. Skin: Skin color, texture, turgor normal, no suspicious rashes or lesions. Head: Normocephalic, no masses, lesions, tenderness or abnormalities. Eyes: Anicteric sclera. Pupils are equally round and reactive to light. Extraocular movements are intact. . Ears: External ears normal, canals clear. Nose/Sinuses: Nares normal, septum midline, mucosa normal, no drainage or sinus tenderness. Oropharynx: Lips, mucosa, and tongue normal, teeth and gums normal, oropharynx normal. Neck: Supple, no adenopathy; thyroid symmetric, normal size, no bruits. Lungs: Lungs clear to auscultation. No wheezing, rhonchi, rales.. Heart: RRR without murmur, gallop, or rubs. No ectopy. Abdomen: Normal abdominal exam, Abdomen soft, non-tender. Bowel sounds normal. No masses, organomegaly. Extremities: No deformities, edema, skin discoloration, clubbing or cyanosis. Good capillary refill. . Musculoskeletal: Muscular strength intact, No joint swelling, deformity, or tenderness. Peripheral Pulses: Normal. Neurologic: Gait normal. Reflexes normal and symmetric. Sensation to light touch and crainal nerves2-12 intact.. Diabetic Foot Exam: Feet: Shoes and socks removed, normal distal pulses, sensitive to 10 gm microfilament, vibratory exam within normal limits, and calluses noted right Skin: warm, dry, and normal hair growth Vascular Pulses: Normal SEMMES-ARNOL MONOFILAMENT TESTING Left Foot Right Foot Dorsal Surface Intact Dorsal Surface Intact Plantar Surface Intact Plantar Surface Intact Health Maintenance List BP CONTROLLED (<130/80) Never done COVID-19 VACCINE(5 - Moderna risk series) due on 08/31/2022 ADVANCE DIRECTIVE DISCUSSION due on 10/16/2022 MAMMOGRAM due on 10/22/2022 INFLUENZA(1) due on 06/16/2023 URINE ALBUMIN:CREATININE RATIO due on 07/04/2023 DIABETIC FOOT EXAM due on 07/06/2023 HBA1C due on 07/06/2023 DILATED RETINAL EXAM due on 12/21/2023 LDL CHOLESTEROL due on 01/04/2024 ANNUAL PCP TEAM CHRONIC DISEASE VISIT due on 01/04/2024 COLORECTAL CANCER SCREENING due on 06/30/2026 DTAP,TDAP,TD(4 - Td or Tdap) due on 06/01/2031 BONE DENSITY Completed DEPRESSION ASSESSMENT Completed HEPATITIS C SCREENING Completed SHINGRIX VACCINE Completed PNEUMOCOCCAL: 65+ Completed PAP TESTING Discontinued Data reviewed Component Latest Ref Rng & Units 01/03/2023 Total Cholesterol, Nonfasting <200 mg/dL 131 Triglycerides, Nonfasting <150 mg/dL 116 HDL Cholesterol, Nonfasting >39 mg/dL 50 LDL Cholesterol, Nonfasting <100 mg/dL 58 Non HDL Cholesterol, Nonfasting <130 mg/dL 81 VLDL Cholesterol, Nonfasting <30 mg/dL 23 Total Chol/HDL Ratio, Nonfasting <5.10 mg/dL 2.62 LDL/HDL Ratio, Nonfasting <2.54 mg/dL 1.16 Albumin 3.9 - 4.9 g/dL 4.2 Bilirubin, Total 0.2 - 1.3 mg/dL 0.5 Bilirubin, Conjug <0.2 mg/dL <0.2 Alkaline Phosphatase 34 - 123 U/L 58 AST 13 - 35 U/L 31 ALT 7 - 38 U/L 40 (H) Protein, Total 6.3 - 8.0 g/dL 6.6 Hemoglobin A1C 4.3 - 5.6 % 5.7 (H) Estimated Average Glucose mg/dL 117 A/P ASSESSMENT/PLAN: 1. Well adult exam - ICD9: V70.0, ICD10: Z00.00 (primary diagnosis) - Counseled on healthy diet and regular exercise - Calcium intake with supplements or by diet of 1000 mg/day for under 50, 1200- 1500 mg/day for 50+ - Discussed need and benefit for weight loss. BMI 43.60 kg/(m^2) - Follow up for annual exam in one year - discussed getting the flu, COVID and RSV vaccines. 2. Essential hypertension - ICD9: 401.9, ICD10: I10 - Controlled - Recommend home blood pressure monitoring, to bring results to next visit - Encouraged sodium restriction, DASH or Mediterranean diet - Recommend regular aerobic exercise - LISINOPRIL 10 MG TABLET Check - COMP METABOLIC PANEL - URINALYSIS, WITH MICROSCOPIC - LIPID PANEL, NONFASTING 3. Mixed hyperlipidemia - ICD9: 272.2, ICD10: E78.2 - await labs - Continue current medications - Counseled on healthy diet and regular exercise - ATORVASTATIN 20 MG TABLET Check - COMP METABOLIC PANEL - URINALYSIS, WITH MICROSCOPIC - LIPID PANEL, NONFASTING 4. Controlled type 2 diabetes mellitus without complication, without long-term current use of insulin ([facility]) - ICD9: 250.00, ICD10: E11.9 - await labs - Counseled on healthy diet and regular exercise - Discussed need for and benefit of weight loss. BMI 43.60 kg/(m^2) Check - ALBUMIN/CREAT RATIO RND UR - COMP METABOLIC PANEL - HGB A1C - URINALYSIS, WITH MICROSCOPIC - LIPID PANEL, NONFASTING - CBC + DIFF 5. Diabetic eye exam ([facility]) - ICD9: V72.0, 250.00, ICD10: Z01.00, E11.9 - up to date 6. Polyarthralgia - ICD9: 719.49, ICD10: M25.50 - management per Rheum 7. Rheumatoid arthritis involving multiple sites, unspecified whether rheumatoid factor present ([facility]) - ICD9: 714.0, ICD10: M06.9 - management per Rheum 8. Obesity, Class III, BMI 40-49.9 (morbid obesity) ([facility]) - ICD9: 278.01, ICD10: E66.01 Weight decreasing - Behavioral intervention 9. Hirsutism - ICD9: 704.1, ICD10: L68.0 - cont aldactone. 10. Fibromyalgia - ICD9: 729.1, ICD10: M79.7 - no changes in Tx. 11. Advance directive discussed with patient - ICD9: V65.49, ICD10: Z71.89 - patient has packets. 12. Bunion, right - ICD9: 727.1, ICD10: M21.611 - will monitor. Requested Prescriptions Signed Prescriptions Disp Refills lisinopril (PRINIVIL) 10 mg tablet 90 tablet 1 Sig: Take 1 tablet by mouth once daily. atorvastatin (LIPITOR) 20 mg tablet 45 tablet 1 Sig: Take 0.5 tablets by mouth once daily. F/u 6 months routine I spent a total of 40 minutes on the date of the service which included preparing to see the patient, [id number] patient care, completing clinical documentation, performing a medically appropriate examination, counseling and educating the patient/family/caregiver and ordering medications, tests, or procedures. Laurent Pagan MD documented [facility] Miscellaneous Notes* Telephone Encounter - Cleo Lockhart RN - 01/05/2023 10:58 AM EDT Patient notified of results. Patient verbalizes understanding. Cleo Lockhart RN * Telephone Encounter - Jenn Bee LPN - 01/05/2023 9:52 AM EDT Left message to call office. 01/05/2023 9:52 AM. Jenn Bee LPN * Telephone Encounter - CHRISTEL Beckwith - 01/05/2023 7:18 AM EDT Negative for covid and flu documented in this encounterSal[facility]03-22-[facility]23 Miscellaneous Notes* Telephone Encounter - Beatrice Mahoney RN - 01/04/2023 5:02 PM EDT Spoke with patient. Given message from provider's office. Patient verbalizes understanding. Beatrice Mahoney RN * Telephone Encounter - Hermilo Mohamud LPN - 01/04/2023 1:48 PM EDT Left message for pt to contact office. Hermilo Mohamud LPN * Telephone Encounter - Vanessa Berg PA-C - 01/04/2023 1:23 PM EDT Let patient know that her a1c is 5.7 which is overall stable. Liver function is okay.. Her cholesterol is normal. Thanks. Vanessa Berg PA-C documented in this encounterSal[facility]03-22-[facility]23 History of Present illness Narrative* Adelita Fox APRN.C[employer]CULAR KNIFE CUTTER MACHINE - 01/04/2023 9:08 AM EDT Subjective HPI David presents today for complaint of one day sore throat, and cough, however she states her cough ischronic. She has not had a fever, she is eating and drinking well. She states she woke up this morning with the sore throat so has not taken any medication. She has had exposure to strep. She also denies n/v/d. PAST MEDICAL HISTORY Diagnosis Date Advance directive discussed with patient 07/06/2022 Discussed 06/2022 Arthritis Class 2 obesity due to excess calories without serious comorbidity with body mass index (BMI) of 39.0 to 39.9 in adult 12/12/2017 Controlled type 2 diabetes mellitus without complication, without long-term current use of insulin ([facility]) 12/12/2017 Depression Diabetic eye exam ([facility]) 06/08/2018 Last done: 01/03/22: No Retinopathy [facility] Dysmetabolic syndrome 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 Essential hypertension Fibromyalgia 06/01/2021 Hirsutism Migraine Mixed hyperlipidemia Plantar fasciitis Polyarthralgia 09/26/[address] Montenegro Rheumatoid arthritis involving multiple sites ([facility]) 06/01/2021 Dr. Quigley Well adult exam 12/02/2020 Last done: 02/27/2019 PAST SURGICAL HISTORY Procedure Laterality Date CARPAL TUNNEL Right 09/28/2018 COLONOSCOPY 02/2016 repeat 5 years COLONOSCOPY FLX DX W/COLLJ SPEC WHEN PFRMD 05/09/2013 Colonoscopy COLONOSCOPY FLX DX W/COLLJ SPEC WHEN PFRMD 06/30/2021 PAST SURGICAL HISTORY OF heel spur PAST SURGICAL HISTORY OF wisdom teeth ALLERGIES Dolobid [Diflunisal] MEDICATIONS spironolactone (ALDACTONE) 25 mg tablet Take 0.5 tablets by mouth once daily. lisinopril (PRINIVIL) 10 mg tablet Take 1 tablet by mouth once daily. atorvastatin (LIPITOR) 20 mg tablet Take 0.5 tablets by mouth once daily. MAGNESIUM ORAL Take by mouth as directed. BIOTIN ORAL Take by mouth. etanercept (ENBREL) 25 mg (1 mL) injection Inject 0.4 mg/kg/dose subcutaneously one time only. weekly predniSONE (DELTASONE) 2.5 mg tablet Take 1 tablet by mouth once daily. Take ten tabs by mouth on day one and reduce by one a day till done. folic acid 1 mg tablet Take 1 mg by mouth once daily. Take 2 tablets daily DULoxetine (CYMBALTA) 30 mg capsule Take 30 mg by mouth once daily. METHOTREXATE ORAL Take 5 mg by mouth. Take 1 tablet weekly calcium citrate-vitamin D3 (CALCIUM CITRATE + D) 315-200 mg-unit tab Take 1 tablet by mouth twice daily with meals. ascorbic acid, vitamin C, (VITAMIN C) 500 mg tablet Take 500 mg by mouth once daily. aspirin, enteric coated (ASPIRIN, ENTERIC COATED) 81 mg EC tablet Take 81 mg by mouth once daily. mometasone 50 mcg/actuation nasal spray Use 2 Sprays in the nose once daily. Rinse mouth after use.(Patient taking differently: Use 2 Sprays in the nose as needed. Rinse mouth after use.) multivitamin tablet Take 1 tablet by mouth once daily. acetaminophen (TYLENOL) 500 mg tablet Take 500 mg by mouth daily at bedtime. FAMILY HISTORY Problem Relation Age of Onset other (meningitis) Mother encephalitis other (bladder cancer) Father Diabetes Sister Heart Sister AICD Detached Retina Brother Diabetes Brother Colon Polyps Brother COPD Brother Diabetes Maternal Grandmother Heart Maternal Grandmother Diabetes Paternal Grandmother Diabetes Paternal Grandfather Social History Tobacco Use Smoking status: Never Smokeless tobacco: Never Vaping Use Vaping Use: Never used Substance Use Topics Alcohol use: Not Currently Comment: rarely Drug use: No Review of Systems HENT: Positive for sore throat. All other systems reviewed and are negative. Objective Physical Exam Constitutional: Appearance: Normal appearance. HENT: Head: Normocephalic and atraumatic. Right Ear: Tympanic membrane normal. Left Ear: Tympanic membrane normal. Nose: Nose normal. Mouth/Throat: Mouth: Mucous membranes are moist. Pharynx: Posterior oropharyngeal erythema present. No oropharyngeal exudate. Eyes: Extraocular Movements: Extraocular movements intact. Pupils: Pupils are equal, round, and reactive to light. Cardiovascular: Rate and Rhythm: Normal rate and regular rhythm. Pulses: Normal pulses. Heart sounds: Normal heart sounds. Pulmonary: Effort: Pulmonary effort is normal. Abdominal: General: Abdomen is flat. Musculoskeletal: General: Normal range of motion. Skin: General: Skin is warm and dry. Capillary Refill: Capillary refill takes less than 2 seconds. Neurological: General: No focal deficit present. Mental Status: She is alert and oriented to person, place, and time. ASSESSMENT/PLAN: 1. 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 Patient with hx of HTN, hyperlipidemia, DM2, RA, obesity and those as below. No specific concerns today. Past medical history, appointments, medications, allergies reviewed. Previous Medical History PAST MEDICAL HISTORY Diagnosis Date Advance directive discussed with patient 07/06/2022 Discussed 06/2022 Arthritis Class 2 obesity due to excess calories without serious comorbidity with body mass index (BMI) of 39.0 to 39.9 in adult 12/12/2017 Controlled type 2 diabetes mellitus without complication, without long-term current use of insulin ([facility]) 12/12/2017 Depression Diabetic eye exam ([facility]) 06/08/2018 Last done: 01/03/22: No Retinopathy [facility] Dysmetabolic syndrome 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 Essential hypertension Fibromyalgia 06/01/2021 Hirsutism Migraine Mixed hyperlipidemia Plantar fasciitis Polyarthralgia 09/26/[address] Montenegro Rheumatoid arthritis involving multiple sites ([facility]) 06/01/2021 Dr. Quigley Well adult exam 12/02/2020 Last done: 02/27/2019 Previous Surgical History PAST SURGICAL HISTORY Procedure Laterality Date CARPAL TUNNEL Right 09/28/2018 COLONOSCOPY 02/2016 repeat 5 years COLONOSCOPY FLX DX W/COLLJ SPEC WHEN PFRMD 05/09/2013 Colonoscopy COLONOSCOPY FLX DX W/COLLJ SPEC WHEN PFRMD 06/30/2021 PAST SURGICAL HISTORY OF heel spur PAST SURGICAL HISTORY OF wisdom teeth Family History FAMILY HISTORY Problem Relation Age of Onset other (meningitis) Mother encephalitis other (bladder cancer) Father Diabetes Sister Heart Sister AICD Detached Retina Brother Diabetes Brother Colon Polyps Brother COPD Brother Diabetes Maternal Grandmother Heart Maternal Grandmother Diabetes Paternal Grandmother Diabetes Paternal Grandfather Patient Allergies ALLERGIES Allergen Reactions Dolobid [Diflunisal] Rash Current Medications Current Outpatient Medications on File Prior to Visit Medication Sig spironolactone (ALDACTONE) 25 mg tablet Take 0.5 tablets by mouth once daily. lisinopril (PRINIVIL) 10 mg tablet Take 1 tablet by mouth once daily. atorvastatin (LIPITOR) 20 mg tablet Take 0.5 tablets by mouth once daily. MAGNESIUM ORAL Take by mouth as directed. BIOTIN ORAL Take by mouth. etanercept (ENBREL) 25 mg (1 mL) injection Inject 0.4 mg/kg/dose subcutaneously one time only. weekly predniSONE (DELTASONE) 2.5 mg tablet Take 1 tablet by mouth once daily. Take ten tabs by mouth on day one and reduce by one a day till done. folic acid 1 mg tablet Take 1 mg by mouth once daily. Take 2 tablets daily DULoxetine (CYMBALTA) 30 mg capsule Take 30 mg by mouth once daily. METHOTREXATE ORAL Take 5 mg by mouth. Take 1 tablet weekly calcium citrate-vitamin D3 (CALCIUM CITRATE + D) 315-200 mg-unit tab Take 1 tablet by mouth twice daily with meals. ascorbic acid, vitamin C, (VITAMIN C) 500 mg tablet Take 500 mg by mouth once daily. aspirin, enteric coated (ASPIRIN, ENTERIC COATED) 81 mg EC tablet Take 81 mg by mouth once daily. mometasone 50 mcg/actuation nasal spray Use 2 Sprays in the nose once daily. Rinse mouth after use.(Patient taking differently: Use 2 Sprays in the nose as needed. Rinse mouth after use.) multivitamin tablet Take 1 tablet by mouth once daily. acetaminophen (TYLENOL) 500 mg tablet Take 500 mg by mouth daily at bedtime. No current facility-administered medications on file prior to visit. Social History Social History Tobacco Use Smoking status: Never Smokeless tobacco: Never Vaping Use Vaping Use: Never used Substance Use Topics Alcohol use: Not Currently Comment: rarely Drug use: No Review of Symptoms REVIEW OF SYSTEMS GENERAL: No weight loss, malaise or fevers NECK: Negative for lumps, goiter, pain and significant neck swelling RESPIRATORY: Negative for cough, hemoptysis, wheezing, COPD, dyspnea or shortness of breath CARDIOVASCULAR: Negative for chest pain, leg swelling, hypertension, CHF or palpitations NEURO: No history of headaches, syncope, paralysis, seizures or tremors EXAM: BP 124/78 Pulse 85 Resp 18 Wt 103.9 kg (229 lb) SpO2 95% BMI 42.57 kg/m General Appearance: Well appearing, alert, in no acute distress, well-hydrated, well nourished. andMorbidly obese. Neck: Supple, no adenopathy; thyroid symmetric, normal size, no bruits. Lungs: Lungs clear to auscultation. No wheezing, rhonchi, rales.. Heart: RRR without murmur, gallop, or rubs. No ectopy. Extremities: No deformities, edema, skin discoloration, clubbing or cyanosis. Good capillary refill. . Peripheral Pulses: Normal. Health Maintenance List BP CONTROLLED (<130/80) Never done ADVANCE DIRECTIVE DISCUSSION due on 10/16/2022 DEPRESSION ASSESSMENT Never done MAMMOGRAM due on 10/22/2022 HBA1C due on 01/01/2023 PNEUMOCOCCAL: 65+(3 - PPSV23 if available, else PCV20) due on 12/22/2022 URINE ALBUMIN:CREATININE RATIO due on 07/04/2023 LDL CHOLESTEROL due on 07/04/2023 DIABETIC FOOT EXAM due on 07/06/2023 ANNUAL PCP TEAM CHRONIC DISEASE VISIT due on 07/06/2023 DILATED RETINAL EXAM due on 12/21/2023 COLORECTAL CANCER SCREENING due on 06/30/2026 DTAP,TDAP,TD(4 - Td or Tdap) due on 06/01/2031 BONE DENSITY Completed INFLUENZA Completed HEPATITIS C SCREENING Completed SHINGRIX VACCINE Completed COVID-19 VACCINE Completed Data reviewed N/a ASSESSMENT/PLAN: 1. Controlled type 2 diabetes mellitus without complication, without long-term current use of insulin (HCC) - ICD9: 250.00, ICD10: E11.9 (primary diagnosis) Await labs - Continue current medications - Counseled on healthy diet and regular exercise - Discussed need for and benefit of weight loss. BMI 42.57 kg/(m^2) 2. Mixed hyperlipidemia - ICD9: 272.2, ICD10: E78.2 - to be determined upon return of lab results - Encouraged following a low carbohydrate, healthy oil intake diet. - Continue current therapy. 3. Essential hypertension - ICD9: 401.9, ICD10: I10 - good control - Continue current medication(s) - Recommended regular aerobic exercise. - Recommend home blood pressure monitoring, to bring results in on next visit - Goal of BP <130/80 4. Rheumatoid arthritis involving multiple sites, unspecified whether rheumatoid factor present (HCC) - ICD9: 714.0, ICD10: M06.9 Continue with rheum 5. Class 2 obesity due to excess calories without serious comorbidity with body mass index (BMI) of39.0 to 39.9 in adult - ICD9: 278.00, V85.39, ICD10: E66.09, Z68.39 Stable - Behavioral intervention 6. Encounter for immunization - ICD9: V03.89, ICD10: Z23 - PNEUMOCOCCAL VACCINE (PNEUMOVAX 23) Vanessa Berg PA-C documented in this encounterSal[facility]03-09-[facility]23 History of Present illness Narrative* Lokesh Espitia MA - 12/22/2022 3:03 PM EST Scan on 12/20/2022 2:11 PM by External Provider: Consultation - Ophthalmology HM updated. Lokesh Espitia MA documented in this encounterSalem [facility]01-30-2023 Miscellaneous Notes* Telephone Encounter - Danna Meza RN - 11/14/2022 9:39 AM EST Patient has been identified by name and date of : Yes, Danna Meza RN Date 11/14/2022 Time 9:38 am Pharmacy phones for refill(s): Requested Prescriptions Pending Prescriptions Disp Refills spironolactone (ALDACTONE) 25 mg tablet 45 tablet 1 Sig: Take 0.5 tablets by mouth once daily. lisinopril (PRINIVIL) 10 mg tablet 90 tablet 1 Sig: Take 1 tablet by mouth once daily. atorvastatin (LIPITOR) 20 mg tablet 45 tablet 1 Sig: Take 0.5 tablets by mouth once daily. Date of last office visit with pcp: 07/06/2022 Future Appt: 01/03/2023 Last 2 Encounter Wt Readings: Date: Wt: 07/06/2022 101.6 kg (224 lb) 05/04/2022 104.1 kg (229 lb 9.6 oz) Previous labs/tests for medication: Cholesterol: Triglycerides (mg/dL) Date Value 12/21/2018 73 HDL Cholesterol (mg/dL) Date Value 05/26/2020 52 HDL Cholesterol, Nonfasting (mg/dL) Date Value 07/04/2022 52 06/01/2021 51 LDL Cholesterol (mg/dL) Date Value 05/26/2020 67 LDL Cholesterol, Nonfasting (mg/dL) Date Value 07/04/2022 63 06/01/2021 62 ALT (U/L) Date Value 07/04/2022 37 06/21/2018 22 ALT (SGPT) (U/L) Date Value 08/24/2021 49 Non HDL Cholesterol, Nonfasting (mg/dL) Date Value 07/04/2022 82 06/01/2021 81 Blood Pressure: BUN Date Value 07/04/2022 21 mg/dL 08/24/2021 18 MG/DL 06/21/2018 16 mg/dL Sodium (mmol/L) Date Value 07/04/2022 140 06/21/2018 140 NA (mmol/L) Date Value 08/24/2021 139 Last 1 Encounter BP Readings: Date: BP: 07/06/2022 120/80 Liver Function: ALT (U/L) Date Value 07/04/2022 37 06/21/2018 22 ALT (SGPT) (U/L) Date Value 08/24/2021 49 AST (U/L) Date Value 07/04/2022 32 06/21/2018 22 AST (SGOT) (U/L) Date Value 08/24/2021 27 Please advise. Thank you. Danna Meza, RN documented in this encounterSalem City [facility]12-22-2022 History of Present illness Narrative* Alma Tatum LPN - 10/06/2022 9:24 AM EST Patient presents for Shingrix and flu vaccines. Denies any problems at this time. Tolerated injections well. Alma Tatum LPN documented in this encounterSalem [facility]12-05-2022 Miscellaneous Notes* Telephone Encounter - Vanessa Berg PA-C - 09/19/2022 2:13 PM EST signed * Telephone Encounter - Alma Tatum LPN - 09/19/2022 1:51 PM EST Patient scheduled for nurse visit 10/06/22 to receive Shingrix vaccine. Please place order at this time. Alma Tatum LPN documented in this [facility]09-21-2022 Instructions* Patient Instructions* Laurent Pagan MD - 07/06/2022 9:00 AM EDT Please get labs and urine test done on or after 12/23/2022 prior to your next visit. documented in this [facility]09-21-2022 History of Present illness Narrative* Laurent Pagan MD - 07/06/2022 8:00 AM EDT Images from the original note were not included. Chief Complaint Patient presents with: Physical HPI Kate Coffey is a 66 year old female who presents here today for Physical. Patient with hx of DM, HLP, HTN, fibro, RA, obeseity, polyarthralgia, and those as below. Patient has been doing well. Continues to see Rheum Past medical history, appointments, medications, allergies reviewed. Previous Medical History PAST MEDICAL HISTORY Diagnosis Date Arthritis Depression Diabetes type 2, controlled ([facility]) 07/10/2014 Not sure it is diabetes from the numbers but she had symptoms that were thought it is June 2014 Hba1c is 5.8 Dysmetabolic syndrome 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 Fibromyalgia 06/01/2021 Hirsutism Hypertension Migraine Mixed hyperlipidemia Obesity 02/27/2014 Plantar fasciitis Polyarthralgia 09/26/[address] Mont[place]ro Rheumatoid arthritis involving multiple sites ([facility]) 06/01/2021 Dr. Quigley Type II or unspecified type diabetes mellitus without mention of complication, not stated as uncontrolled Well adult exam 12/02/2020 Last done: 02/27/2019 Previous Surgical History PAST SURGICAL HISTORY Procedure Laterality Date CARPAL TUNNEL Right 09/28/2018 COLONOSCOPY 02/2016 repeat 5 years COLONOSCOPY FLX DX W/COLLJ SPEC WHEN PFRMD 05/09/2013 Colonoscopy COLONOSCOPY FLX DX W/COLLJ SPEC WHEN PFRMD 06/30/2021 PAST SURGICAL HISTORY OF heel spur PAST SURGICAL HISTORY OF wisdom teeth Family History FAMILY HISTORY Problem Relation Age of Onset other (meningitis) Mother encephalitis other (bladder cancer) Father Diabetes Sister Detached Retina Brother Diabetes Brother Colon Polyps Brother COPD Brother Diabetes Maternal Grandmother Heart Maternal Grandmother Diabetes Paternal Grandmother Diabetes Paternal Grandfather Patient Allergies ALLERGIES Allergen Reactions Dolobid [Diflunisal] Rash Current Medications Current Outpatient Medications on File Prior to Visit Medication Sig atorvastatin (LIPITOR) 20 mg tablet Take 0.5 tablets by mouth once daily. lisinopril (PRINIVIL) 10 mg tablet Take 1 tablet by mouth once daily. spironolactone (ALDACTONE) 25 mg tablet Take 0.5 tablets by mouth once daily. MAGNESIUM ORAL Take by mouth as directed. BIOTIN ORAL Take by mouth. etanercept (ENBREL) 25 mg (1 mL) injection Inject 0.4 mg/kg/dose subcutaneously one time only. weekly predniSONE (DELTASONE) 2.5 mg tablet Take 1 tablet by mouth once daily. Take ten tabs by mouth on day one and reduce by one a day till done. folic acid 1 mg tablet Take 1 mg by mouth once daily. DULoxetine (CYMBALTA) 30 mg capsule Take 30 mg by mouth once daily. METHOTREXATE ORAL Take 2.5 mg by mouth. calcium citrate-vitamin D3 (CALCIUM CITRATE + D) 315-200 mg-unit tab Take 1 tablet by mouth twice daily with meals. ascorbic acid, vitamin C, (VITAMIN C) 500 mg tablet Take 500 mg by mouth once daily. aspirin, enteric coated (ASPIRIN, ENTERIC COATED) 81 mg EC tablet Take 81 mg by mouth once daily. mometasone 50 mcg/actuation nasal spray Use 2 Sprays in the nose once daily. Rinse mouth after use.(Patient taking differently: Use 2 Sprays in the nose as needed. Rinse mouth after use. ) multivitamin tablet Take 1 tablet by mouth once daily. acetaminophen (TYLENOL EXTRA STRENGTH) 500 mg tablet Take 500 mg by mouth daily at bedtime. No current facility-administered medications on file prior to visit. Social History Social History Tobacco Use Smoking status: Never Smokeless tobacco: Never Vaping Use Vaping Use: Never used Substance Use Topics Alcohol use: Yes Comment: rarely Drug use: No Review of Symptoms REVIEW OF SYSTEMS GENERAL: No significant weight loss, malaise or fevers HEENT: Negative for frequent or significant headaches, No changes in hearing or vision, no nose bleeds or other nasal problems NECK: Negative for lumps, goiter, pain and significant neck swelling RESPIRATORY: Negative for cough, hemoptysis, wheezing, COPD, dyspnea or shortness of breath CARDIOVASCULAR: Negative for chest pain, increased leg swelling, hypertension, CHF or palpitations GI: No nausea, vomiting, or diarrhea, No heartburn or reflux symptoms, and no blood : No history of dysuria, blood MUSCULOSKELETAL: Negative for new or changes in her typical joint pain or swelling, back pain or muscle pain SKIN: Negative for lesions, rash, and itching PSYCH: Negative for sleep disturbance, mood disorder and recent psychosocial stressors HEMATOLOGY/LYMPHOLOGY: Negative for prolonged bleeding, bruising easily or swollen nodes ENDOCRINE: Negative for cold or heat intolerance. No frequent symptoms of low BS's NEURO: No history of headaches, syncope, paralysis, seizures or tremors EXAM: BP 120/80 (BP Site: Right Arm, BP Position: Sitting, BP Cuff Size: Large Adult) Pulse 72 Resp 16 Ht 156.2 cm (5' 1.5) Wt 101.6 kg (224 lb) BMI 41.64 kg/m Last 4 Encounter Wt Readings: Date: Wt: 07/06/2022 101.6 kg (224 lb) 05/04/2022 104.1 kg (229 lb 9.6 oz) 12/22/2021 102.1 kg (225 lb) 08/02/2021 101.6 kg (224 lb) General Appearance: Well appearing, alert, in no acute distress, well-hydrated, well nourished. andMorbidly obese. Skin: Skin color, texture, turgor normal, no suspicious rashes or lesions. Head: Normocephalic, no masses, lesions, tenderness or abnormalities. Eyes: Anicteric sclera. Pupils are equally round and reactive to light. Extraocular movements are intact. . Ears: External ears, TM's normal, canals clear. Neck: Supple, no adenopathy; thyroid symmetric, normal size, no bruits. Lungs: Lungs clear to auscultation. No wheezing, rhonchi, rales.. Heart: RRR without murmur, gallop, or rubs. No ectopy. Abdomen: Normal abdominal exam, Abdomen soft, non-tender. Bowel sounds normal. No masses, organomegaly. Extremities: No deformities, edema, skin discoloration, clubbing or cyanosis. Good capillary refill. . Musculoskeletal: Muscular strength intact, No joint swelling, deformity, or tenderness. Peripheral Pulses: Normal. Neurologic: Gait normal. Reflexes normal and symmetric. Sensation to light touch and crainal nerves2-12 intact.. Diabetic Foot Exam: Feet: Shoes and socks removed, no deformities, ulcers, calluses, normal distal pulses, sensitive to10 gm microfilament, and vibratory exam within normal limits Skin: warm, dry, no callouses or ulcer, and normal hair growth Vascular Pulses: Normal SEMMES-ARNOL MONOFILAMENT TESTING Left Foot Right Foot Dorsal Surface Intact Dorsal Surface Intact Plantar Surface Intact Plantar Surface Intact Health Maintenance List SHINGRIX VACCINE(1 of 2) Never done COVID-19 VACCINE(4 - Booster for Moderna series) due on 09/23/2021 ADVANCE DIRECTIVE DISCUSSION Never done DEPRESSION SCREENING due on 11/29/2021 INFLUENZA(1) due on 06/16/2022 MAMMOGRAM due on 10/22/2022 DIABETIC FOOT EXAM due on 12/22/2022 ANNUAL PCP TEAM CHRONIC DISEASE VISIT due on 12/22/2022 PNEUMOCOCCAL: 66+(3 - PPSV23 or PCV20) due on 12/22/2022 HBA1C due on 01/01/2023 DILATED RETINAL EXAM due on 01/03/2023 BP CONTROLLED (<130/80) due on 05/04/2023 URINE ALBUMIN:CREATININE RATIO due on 07/04/2023 LDL CHOLESTEROL due on 07/04/2023 COLORECTAL CANCER SCREENING due on 06/30/2026 DTAP,TDAP,TD(4 - Td or Tdap) due on 06/01/2031 BONE DENSITY Completed HEPATITIS C SCREENING Completed HIV SCREENING Discontinued Data reviewed Component Latest Ref Rng & Units 06/01/2021 12/22/2021 07/04/2022 WBC 3.70 - 11.00 k/uL 10.18 RBC 3.90 - 5.20 m/uL 4.73 Hemoglobin 11.5 - 15.5 g/dL 14.8 Hematocrit 36.0 - 46.0 % 46.1 (H) MCV 80.0 - 100.0 fL 97.5 MCH 26.0 - 34.0 pg 31.3 MCHC 30.5 - 36.0 g/dL 32.1 RDW-CV 11.5 - 15.0 % 13.5 Platelet Count 150 - 400 k/uL 262 MPV 9.0 - 12.7 fL 10.2 Neut% % 60.2 Abs Neut (ANC) 1.45 - 7.50 k/uL 6.13 Lymph% % 27.2 Abs Lymph 1.00 - 4.00 k/uL 2.77 [place]% % 7.6 Abs [place] <0.87 k/uL 0.77 Eosin% % 2.8 Abs Eosin <0.46 k/uL 0.29 Baso% % 0.8 Abs Baso <0.11 k/uL 0.08 Immature Gran % % 1.4 IMMATURE GRANS (ABS) <0.10 k/uL 0.14 (H) NRBC /100 WBC 0.0 Absolute nRBC <0.01 k/uL <0.01 DTYPE Auto Protein, Total 6.3 - 8.0 g/dL 6.8 7.2 Albumin 3.9 - 4.9 g/dL 4.2 4.3 Calcium 8.5 - 10.2 mg/dL 10.0 Bilirubin, Total 0.2 - 1.3 mg/dL 0.4 0.6 Alkaline Phosphatase 34 - 123 U/L 60 66 AST 13 - 35 U/L 41 (H) 32 ALT 7 - 38 U/L 49 (H) 37 Glucose 74 - 99 mg/dL 94 BUN 7 - 21 mg/dL 21 Creatinine 0.58 - 0.96 mg/dL 0.83 Sodium 136 - 144 mmol/L 140 Potassium 3.7 - 5.1 mmol/L 4.2 Chloride 97 - 105 mmol/L 105 CO2 22 - 30 mmol/L 24 Anion Gap 9 - 18 mmol/L 11 eGFR >=60 mL/min/1.73m 78 Color Yellow Yellow Yellow Clarity Clear Clear Clear Glucose, Urine Negative Negative Negative Bilirubin, Urine Negative Negative Negative Ketones, Urine Negative Negative Negative Specific [place], Ur 1.005 - 1.030 1.024 1.026 Hemoglobin/Blood,Ur Negative Negative Negative pH, Urine 5.0 - 8.0 7.0 6.0 Protein, Urine Negative Negative 1+ (A) Urobilinogen Negative Negative Negative Nitrites Negative Negative Negative Leukest Negative Trace (A) Negative WBC, Urine 0-5 /HPF 0-5 /HPF 0-5 /HPF RBC, Urine 0-3 /HPF 0-3 /HPF 0-3 /HPF Epithelial Cells /HPF Few Few Total Cholesterol, Nonfasting <200 mg/dL 132 149 134 Triglycerides, Nonfasting <150 mg/dL 93 173 (H) 96 HDL Cholesterol, Nonfasting >39 mg/dL 51 46 52 LDL Cholesterol, Nonfasting <100 mg/dL 62 68 63 Non HDL Cholesterol, Nonfasting <130 mg/dL 81 103 82 VLDL Cholesterol, Nonfasting <30 mg/dL 19 35 (H) 19 Total Chol/HDL Ratio, Nonfasting <5.10 mg/dL 2.59 3.24 2.58 LDL/HDL Ratio, Nonfasting <2.54 mg/dL 1.22 1.48 1.21 Bilirubin, Conjug <0.2 mg/dL <0.2 Creatinine, Ur Random (UCRR) 20.0 - 300.0 mg/dL 129.9 123.1 Albumin, Urine Random mg/L 14.6 18.6 Albumin/Creat Ratio <30 mg/g 11 15 Hemoglobin A1C 4.3 - 5.6 % 5.6 5.7 (H) 5.5 Estimated Average Glucose mg/dL 114 117 111 A/P ASSESSMENT/PLAN: 1. Well adult exam - ICD9: V70.0, ICD10: Z00.00 (primary diagnosis) - Counseled on healthy diet and regular exercise - Calcium intake with supplements or by diet of 1000 mg/day for under 50, 1200- 1500 mg/day for 50+ - Patient was counseled [id number] by myself (the billing provider) for the following immunizations and vaccine components, including side effects: COVID-19 and Shingrix. Patient consents for immunization and understands risks and benefits. A VIS sheet on each immunization was given to the patient. - Follow up for annual exam in one year 2. Controlled type 2 diabetes mellitus without complication, without long-term current use of insulin (HCC) - ICD9: 250.00, ICD10: E11.9 Controlled. - Encouraged regular aerobic exercise and weight loss - BP goal of <130/80 - LDL goal of <100 - cont management via life style changes. 3. Diabetic eye exam (HCC) - ICD9: V72.0, 250.00, ICD10: Z01.00, E11.9 - up to date. 4. Mixed hyperlipidemia - ICD9: 272.2, ICD10: E78.2 - good control - Encouraged following a low fat, low cholesterol diet. - Discussed the benefits of regular aerobic exercise and weight loss. - Encouraged following a low carbohydrate, healthy oil intake diet. - Continue current therapy. 5. Essential hypertension - ICD9: 401.9, ICD10: I10 - good control - Continue current medication(s) - Recommended regular aerobic exercise. - Recommend home blood pressure monitoring, to bring results in on next visit - Goal of BP <130/80 6. Polyarthralgia - ICD9: 719.49, ICD10: M25.50 - management per Rheum 7. Class 2 obesity due to excess calories without serious comorbidity with body mass index (BMI) of39.0 to 39.9 in adult - ICD9: 278.00, V85.39, ICD10: E66.09, Z68.39 Weight decreasing - Behavioral intervention 8. Rheumatoid arthritis involving multiple sites, unspecified whether rheumatoid factor present (HCC) - ICD9: 714.0, ICD10: M06.9 - as per #6 9. Advance directive discussed with patient - ICD9: V65.49, ICD10: Z71.89 - packets provided. 10. Need for vaccination - ICD9: V05.9, ICD10: Z23 - ZOSTER VACC RECOMBINANT,IM: #1 given - [employer] COVID-19 BIVALENT BOOSTER VACCINE, AGE 12+ YR: given [place] in 3 months for shingrix #2. F/u 6 months routine check A1c, LFT's and Lipid Laurent Pagan MD [facility] Miscellaneous Notes* Telephone Encounter - Cleo Lockhart RN - 07/01/2022 4:12 PM EDT Patient calls and notified that orders were placed as well as information about booster. Cleo Lockhart RN * Telephone Encounter - Lokesh Espitia MA - 06/30/2022 9:07 AM EDT Left message for patient to contact office. Lokesh Espitia MA * Telephone Encounter - Laurent Pagan MD - 06/29/2022 8:37 PM EDT Let patient know labs placed. If able to give her the COVID booster we will otherwise we may need to schedule a nurse appt. * Telephone Encounter - Jenn Bee LPN - 06/29/2022 4:55 PM EDT Pt has appt 07/06/22 with pcp. Pt asking if she needs any labs prior to appt? Also pt asking if she can get a covid booster at appt if it is avail in the office? Jenn Bee LPN [facility] History of Present illness Narrative* Gregory Nino MD - 05/04/2022 6:15 PM EDT Patient presents with: Acute Visit: left eyelid swollen since yesterday HPI: Skin Lesion: Location: Left upper eyelid Duration: Noticed since yesterday Pruritis/Pain: A little irritated, no pruritis Change: NO Drainage/blister/pustule/ulceration: Swelling, redness, slight drainage and eyeball irritation. No vision change. Treatment: OTC eye drops, warm compress MEDICATIONS: MAGNESIUM ORAL Take by mouth as directed. atorvastatin (LIPITOR) 20 mg tablet Take 0.5 tablets by mouth once daily. lisinopril (PRINIVIL) 10 mg tablet Take 1 tablet by mouth once daily. spironolactone (ALDACTONE) 25 mg tablet Take 0.5 tablets by mouth once daily. BIOTIN ORAL Take by mouth. etanercept (ENBREL) 25 mg (1 mL) injection Inject 0.4 mg/kg/dose subcutaneously one time only. weekly predniSONE (DELTASONE) 2.5 mg tablet Take 1 tablet by mouth once daily. Take ten tabs by mouth on day one and reduce by one a day till done. folic acid 1 mg tablet Take 1 mg by mouth once daily. DULoxetine (CYMBALTA) 30 mg capsule Take 30 mg by mouth once daily. METHOTREXATE ORAL Take 2.5 mg by mouth. calcium citrate-vitamin D3 (CALCIUM CITRATE + D) 315-200 mg-unit tab Take 1 tablet by mouth twice daily with meals. ascorbic acid, vitamin C, (VITAMIN C) 500 mg tablet Take 500 mg by mouth once daily. aspirin, enteric coated (ASPIRIN, ENTERIC COATED) 81 mg EC tablet Take 81 mg by mouth once daily. multivitamin tablet Take 1 tablet by mouth once daily. acetaminophen (TYLENOL EXTRA STRENGTH) 500 mg tablet Take 500 mg by mouth daily at bedtime. mometasone 50 mcg/actuation nasal spray Use 2 Sprays in the nose once daily. Rinse mouth after use. ALLERGIES: ALLERGIES Allergen Reactions Dolobid [Diflunisal] Rash VITALS: BP 120/78 Pulse 82 Temp 36.2 C (97.2 F) Resp 21 Wt 104.1 kg (229 lb 9.6 oz) SpO2 98% BMI 41.99 kg/m PE: Pleasant, in no acute distress. EYE: Left. upper eyelid has trace edema and slight erythema. 3mm papule palpable nasal side of the mid lid. No visible pustule - difficult exam. sclera clear. ASSESSMENT/PLAN: 1. Hordeolum internum left upper eyelid - ICD9: 373.12, ICD10: H00.024 Treat with warm compress multiple times per day. Follow up with ophthalmology if symptoms worsen or are not improving after 1 week. Gregory Nino MD documented in this [facility]06[facility] History of Past illness Narrative* Problem Noted Date Resolved Date Abnormal mammogram 03/17/2016 03/31/2016 Last Assessment & Plan: Ms. Lola Coffey is a 60 year old female with a right mammographic breast mass. I have recommended an ultrasound guided biopsy which is scheduled to be done on 03/25/2016. I will see her back on 03/31/2016 to review her results. documented as of this encounter (statuses as of 05/04/2022) [facility] of Past illness Narrative* Problem Noted Date Resolved Date Abnormal mammogram 03/17/2016 03/31/2016 Last Assessment & Plan: Ms. Lola Coffey is a 60 year old female with a right mammographic breast mass. I have recommended an ultrasound guided biopsy which is scheduled to be done on 03/25/2016. I will see her back on 03/31/2016 to review her results. documented as of this encounter (statuses as of 07/01/2022) [facility] of Past illness Narrative* Problem Noted Date Resolved Date Abnormal mammogram 03/17/2016 03/31/2016 Last Assessment & Plan: Ms. Lola Coffey is a 60 year old female with a right mammographic breast mass. I have recommended an ultrasound guided biopsy which is scheduled to be done on 03/25/2016. I will see her back on 03/31/2016 to review her results. documented as of this encounter (statuses as of 07/06/2022) [facility] of Past illness Narrative* Problem Noted Date Resolved Date Abnormal mammogram 03/17/2016 03/31/2016 Last Assessment & Plan: Ms. Lola Coffey is a 60 year old female with a right mammographic breast mass. I have recommended an ultrasound guided biopsy which is scheduled to be done on 03/25/2016. I will see her back on 03/31/2016 to review her results. documented as of this encounter (statuses as of 09/19/2022) [facility] of [facility] illness Narrative* Problem Noted Date Resolved Date Abnormal mammogram 03/17/2016 03/31/2016 Last Assessment & Plan: Ms. Lola Coffey is a 60 year old female with a right mammographic breast mass. I have recommended an ultrasound guided biopsy which is scheduled to be done on 03/25/2016. I will see her back on 03/31/2016 to review her results. documented as of this encounter (statuses as of 10/07/2022) [facility] illness Narrative* Problem Noted Date Resolved Date Abnormal mammogram 03/17/2016 03/31/2016 Last Assessment & Plan: Ms. Lola Coffey is a 60 year old female with a right mammographic breast mass. I have recommended an ultrasound guided biopsy which is scheduled to be done on 03/25/2016. I will see her back on 03/31/2016 to review her results. documented as of this encounter (statuses as of 11/14/2022) [facility] Narrative* Problem Noted Date Resolved Date Abnormal mammogram 03/17/2016 03/31/2016 Last Assessment & Plan: Ms. Lola Coffey is a 60 year old female with a right mammographic breast mass. I have recommended an ultrasound guided biopsy which is scheduled to be done on 03/25/2016. I will see her back on 03/31/2016 to review her results. documented as of this encounter (statuses as of 12/12/2022) [facility] Narrative* Problem Noted Date Resolved Date Abnormal mammogram 03/17/2016 03/31/2016 Last Assessment & Plan: Ms. Lola Coffey is a 60 year old female with a right mammographic breast mass. I have recommended an ultrasound guided biopsy which is scheduled to be done on 03/25/2016. I will see her back on 03/31/2016 to review her results. documented as of this encounter (statuses as of 12/22/2022) [facility] Narrative* Problem Noted Date Resolved Date Abnormal mammogram 03/17/2016 03/31/2016 Last Assessment & Plan: Ms. Lola Coffey is a 60 year old female with a right mammographic breast mass. I have recommended an ultrasound guided biopsy which is scheduled to be done on 03/25/2016. I will see her back on 03/31/2016 to review her results. documented as of this encounter (statuses as of 01/03/2023) [facility] Narrative* Problem Noted Date Resolved Date Abnormal mammogram 03/17/2016 03/31/2016 Last Assessment & Plan: Ms. Lola Coffey is a 60 year old female with a right mammographic breast mass. I have recommended an ultrasound guided biopsy which is scheduled to be done on 03/25/2016. I will see her back on 03/31/2016 to review her results. documented as of this encounter (statuses as of 01/04/2023) [facility] Narrative* Problem Noted Date Resolved Date Abnormal mammogram 03/17/2016 03/31/2016 Last Assessment & Plan: Ms. Lola Cofefy is a 60 year old female with a right mammographic breast mass. I have recommended an ultrasound guided biopsy which is scheduled to be done on 03/25/2016. I will see her back on 03/31/2016 to review her results. documented as of this encounter (statuses as of 01/05/2023) [facility] Narrative* Problem Noted Date Diagnosed Date Resolved Date Abnormal mammogram 03/17/2016 Last Assessment & Plan: Ms. Lola Coffey is a 60 year old female with a right mammographic breast mass. I have recommended an ultrasound guided biopsy which is scheduled to be done on 03/25/2016. I will see her back on 03/31/2016 to review her results. documented as of this encounter (statuses as of 05/03/2023) [facility] Narrative* Problem Noted Date Diagnosed Date Resolved Date Abnormal mammogram 03/17/2016 6 Last Assessment & Plan: Ms. Lola Coffey is a 60 year old female with a right mammographic breast mass. I have recommended an ultrasound guided biopsy which is scheduled to be done on 03/25/2016. I will see her back on 03/31/2016 to review her results. documented as of this encounter (statuses as of 06/27/2023) [facility] Narrative* Problem Noted Date Diagnosed Date Resolved Date Abnormal mammogram 03/17/2016 6 Last Assessment & Plan: Ms. Lola Coffey is a 60 year old female with a right mammographic breast mass. I have recommended an ultrasound guided biopsy which is scheduled to be done on 03/25/2016. I will see her back on 03/31/2016 to review her results. documented as of this encounter (statuses as of 07/04/2023) [facility] Narrative* Problem Noted Date Diagnosed Date Resolved Date Abnormal mammogram 03/17/2016 6 Last Assessment & Plan: Ms. Lola Coffey is a 60 year old female with a right mammographic breast mass. I have recommended an ultrasound guided biopsy which is scheduled to be done on 03/25/2016. I will see her back on 03/31/2016 to review her results. documented as of this encounter (statuses as of 07/28/2023) [facility] Narrative* Problem Noted Date Diagnosed Date Resolved Date Abnormal mammogram 03/17/2016 6 Last Assessment & Plan: Ms. Lola Coffey is a 60 year old female with a right mammographic breast mass. I have recommended an ultrasound guided biopsy which is scheduled to be done on 03/25/2016. I will see her back on 03/31/2016 to review her results. documented as of this encounter (statuses as of 07/31/2023) [facility] Narrative* Problem Noted Date Diagnosed Date Resolved Date Abnormal mammogram 03/17/2016 6 Last Assessment & Plan: Ms. Lola Coffey is a 60 year old female with a right mammographic breast mass. I have recommended an ultrasound guided biopsy which is scheduled to be done on 03/25/2016. I will see her back on 03/31/2016 to review her results. documented as of this encounter (statuses as of 08/15/2023) [facility] Narrative* Problem Noted Date Diagnosed Date Resolved Date Abnormal mammogram 03/17/2016 6 Last Assessment & Plan: Ms. Lola Coffey is a 60 year old female with a right mammographic breast mass. I have recommended an ultrasound guided biopsy which is scheduled to be done on 03/25/2016. I will see her back on 03/31/2016 to review her results. documented as of this encounter (statuses as of 08/19/2023) [facility] Narrative* Problem Noted Date Diagnosed Date Resolved Date Abnormal mammogram 03/17/2016 6 Last Assessment & Plan: Ms. Lola Coffey is a 60 year old female with a right mammographic breast mass. I have recommended an ultrasound guided biopsy which is scheduled to be done on 03/25/2016. I will see her back on 03/31/2016 to review her results. documented as of this encounter (statuses as of 09/19/2023) [facility] Narrative* Problem Noted Date Diagnosed Date Resolved Date Abnormal mammogram 03/17/2016 6 Last Assessment & Plan: Ms. Lola Coffey is a 60 year old female with a right mammographic breast mass. I have recommended an ultrasound guided biopsy which is scheduled to be done on 03/25/2016. I will see her back on 03/31/2016 to review her results. documented as of this encounter (statuses as of 09/20/2023) [facility] History of Past illness Narrative* Problem Noted Date Diagnosed Date Resolved Date Abnormal mammogram 03/17/2016 6 Last Assessment & Plan: Ms. Lola Coffey is a 60 year old female with a right mammographic breast mass. I have recommended an ultrasound guided biopsy which is scheduled to be done on 03/25/2016. I will see her back on 03/31/2016 to review her results. documented as of this encounter (statuses as of 11/27/2023) [facility]-02[facility]2016 History of Past illness Narrative* Problem Noted Date Diagnosed Date Resolved Date Abnormal mammogram 03/17/2016 6 Last Assessment & Plan: Ms. Lola Coffey is a 60 year old female with a right mammographic breast mass. I have recommended an ultrasound guided biopsy which is scheduled to be done on 03/25/2016. I will see her back on 03/31/2016 to review her results. documented as of this encounter (statuses as of 12/27/2023) [facility]-02-2016 History of Past illness Narrative* Problem Noted Date Diagnosed Date Resolved Date Abnormal mammogram 03/17/2016 6 Last Assessment & Plan: Ms. Lola Coffey is a 60 year old female with a right mammographic breast mass. I have recommended an ultrasound guided biopsy which is scheduled to be done on 03/25/2016. I will see her back on 03/31/2016 to review her results. documented as of this encounter (statuses as of 12/27/2023) [facility] History of Past illness Narrative* Problem Noted Date Diagnosed Date Resolved Date Abnormal mammogram 03/17/2016 6 Last Assessment & Plan: Ms. Lola Coffey is a 60 year old female with a right mammographic breast mass. I have recommended an ultrasound guided biopsy which is scheduled to be done on 03/25/2016. I will see her back on 03/31/2016 to review her results. documented as of this encounter (statuses as of 12/28/2023) [facility] History of Past illness Narrative* Problem Noted Date Diagnosed Date Resolved Date Abnormal mammogram 03/17/2016 6 Last Assessment & Plan: Ms. Lola Coffey is a 60 year old female with a right mammographic breast mass. I have recommended an ultrasound guided biopsy which is scheduled to be done on 03/25/2016. I will see her back on 03/31/2016 to review her results. documented as of this encounter (statuses as of 01/15/2024) [facility] History of Past illness Narrative* Problem Noted Date Diagnosed Date Resolved Date Abnormal mammogram 03/17/2016 6 Last Assessment & Plan: Ms. Lola Coffey is a 60 year old female with a right mammographic breast mass. I have recommended an ultrasound guided biopsy which is scheduled to be done on 03/25/2016. I will see her back on 03/31/2016 to review her results. documented as of this encounter (statuses as of 01/24/2024) [facility] History of Past illness Narrative* Problem Noted Date Diagnosed Date Resolved Date Abnormal mammogram 03/17/2016 6 Last Assessment & Plan: Ms. Lola Coffey is a 60 year old female with a right mammographic breast mass. I have recommended an ultrasound guided biopsy which is scheduled to be done on 03/25/2016. I will see her back on 03/31/2016 to review her results. documented as of this encounter (statuses as of 01/24/2024) [facility] History of Past illness Narrative* Problem Noted Date Diagnosed Date Resolved Date Abnormal mammogram 03/17/2016 6 Last Assessment & Plan: Ms. Lola Coffey is a 60 year old female with a right mammographic breast mass. I have recommended an ultrasound guided biopsy which is scheduled to be done on 03/25/2016. I will see her back on 03/31/2016 to review her results. documented as of this encounter (statuses as of 01/25/2024) [facility] noteNo assessment information availableWSamaritan [facility] Work Phone: Evaluation note* Diagnosis Hordeolum internum left upper eyelid- [facility] Diagnosis Controlled type 2 diabetes mellitus without complication, without long-term current use of insulin (HCC)- Primary Essential hypertension Unspecified essential hypertension Mixed hyperlipidemia [facility]* Diagnosis Well adult exam- Primary Routine general medical examination at a health care facility Controlled type 2 diabetes mellitus without complication, without long-term current use of insulin (HCC) Diabetic eye exam ([facility]) Type II or unspecified type diabetes mellitus without mention of complication, not stated as uncontrolled Mixed hyperlipidemia Essential hypertension Unspecified essential hypertension Polyarthralgia Pain in joint, multiple sites Class 2 obesity due to excess calories without serious comorbidity with body mass index (BMI) of 39.0 to 39.9 in adult Rheumatoid arthritis involving multiple sites, unspecified whether rheumatoid factor present ([facility]) Advance directive discussed with patient Other specified counseling Need for vaccination Need for prophylactic vaccination and inoculation against unspecified single disease [facility] Diagnosis Encounter for immunization- Primary Need for other specified prophylactic vaccination against single bacterial disease documented in this encounter [facility] note* Diagnosis Need for influenza vaccination- Primary Need for prophylactic vaccination and inoculation against influenza Need for vaccination Need for prophylactic vaccination and inoculation against unspecified single disease [facility] Diagnosis Essential hypertension Unspecified essential hypertension Mixed hyperlipidemia [facility] Diagnosis Encounter for screening mammogram for breast cancer [facility] Diagnosis Controlled type 2 diabetes mellitus without complication, without long-term current use of insulin (HCC)- Primary Mixed hyperlipidemia Essential hypertension Unspecified essential hypertension Rheumatoid arthritis involving multiple sites, unspecified whether rheumatoid factor present (HCC) Class 2 obesity due to excess calories without serious comorbidity with body mass index (BMI) of 39.0 to 39.9 in adult Encounter for immunization Need for other specified prophylactic vaccination against single bacterial disease [facility] Diagnosis Sore throat- Primary Acute pharyngitis [facility] Diagnosis Mixed hyperlipidemia Essential hypertension Unspecified essential hypertension [facility] Diagnosis Well adult exam- Primary Routine general medical examination at a health care facility Essential hypertension Unspecified essential hypertension Mixed hyperlipidemia Controlled type 2 diabetes mellitus without complication, without long-term current use of insulin (HCC) Diabetic eye exam (HCC) Type II or unspecified type diabetes mellitus without mention of complication, not stated as uncontrolled Polyarthralgia Pain in joint, multiple sites Rheumatoid arthritis involving multiple sites, unspecified whether rheumatoid factor present (HCC) Obesity, Class III, BMI 40-49.9 (morbid obesity) (HCC) Morbid obesity Hirsutism Fibromyalgia Mylagia and myositis, unspecified Advance directive discussed with patient Other specified counseling Bunion, right Bunion [facility] Diagnosis Proteinuria, unspecified type- Primary [facility] Diagnosis Urinary frequency- Primary Left lower quadrant abdominal pain [facility] Diagnosis Diverticulitis- Primary Diverticulitis of colon (without mention of hemorrhage) [facility] Diagnosis Liver lesion, right lobe- Primary Other specified disorders of liver [facility] Diagnosis Liver lesion, right lobe Other specified disorders of liver [facility] Diagnosis Hemangioma of liver Hemangioma of intra-abdominal structures Pancreatic cyst Cyst and pseudocyst of pancreas [facility]* Diagnosis Encounter for screening mammogram for breast cancer [facility] Diagnosis Essential hypertension- Primary Unspecified essential hypertension Mixed hyperlipidemia Controlled type 2 diabetes mellitus without complication, without long-term current use of insulin (HCC) Obesity, Class III, BMI 40-49.9 (morbid obesity) (HCC) Morbid obesity Class 2 obesity due to excess calories without serious comorbidity with body mass index (BMI) of 39.0 to 39.9 in adult Rheumatoid arthritis involving multiple sites, unspecified whether rheumatoid factor present (HCC) [facility]* Diagnosis Abnormal mammogram- Primary Abnormal mammogram, unspecified documented in this encounter [facility] note* Diagnosis Encounter for screening mammogram for breast cancer documented in this encounter [facility] note* Diagnosis Abnormal mammogram Abnormal mammogram, unspecified documented in this encounter [facility] note* Diagnosis Abnormal mammogram Abnormal mammogram, unspecified documented in this encounter [facility] note* Diagnosis Essential hypertension Unspecified essential hypertension documented in this encounter [facility] note* Diagnosis Acute cough- Primary URI, acute Acute upper respiratory infections of unspecified site Acute cough documented in this encounter [facility] note* Diagnosis Bronchitis- Primary Bronchitis, not specified as acute or chronic documented in this encounter [facility] note* Diagnosis Encounter to establish care- Primary Other reasons for seeking consultation Mixed hyperlipidemia Type II or unspecified type diabetes mellitus without mention of complication, not stated as uncontrolled Hirsutism Plantar fasciitis Plantar fascial fibromatosis Dysmetabolic syndrome X Dysmetabolic Syndrome X Obesity Obesity, unspecified Mixed hyperlipidemia- Primary Type II or unspecified type diabetes mellitus without mention of complication, not stated as uncontrolled Obesity Obesity, unspecified Routine health maintenance Routine general medical examination at a health care facility Breast mass in female Lump or mass in breast Pre-diabetes- Primary Other abnormal glucose Diabetes type 2, controlled (HCC) Type II or unspecified type diabetes mellitus without mention of complication, not stated as uncontrolled Hirsutism Mixed hyperlipidemia Obesity Obesity, unspecified Need for prophylactic vaccination against Streptococcus pneumoniae (pneumococcus) Need for prophylactic vaccination against streptococcus pneumoniae (pneumococcus) Apocrine cyst- Primary Other specified disorder of sweat glands Breast screening Breast screening, unspecified Acute cough documented in this encounter [facility] note* Diagnosis Encounter to establish care- Primary Other reasons for seeking consultation Mixed hyperlipidemia Type II or unspecified type diabetes mellitus without mention of complication, not stated as uncontrolled Hirsutism Plantar fasciitis Plantar fascial fibromatosis Dysmetabolic syndrome X Dysmetabolic Syndrome X Obesity Obesity, unspecified Mixed hyperlipidemia- Primary Type II or unspecified type diabetes mellitus without mention of complication, not stated as uncontrolled Obesity Obesity, unspecified Routine health maintenance Routine general medical examination at a health care facility Breast mass in female Lump or mass in breast Pre-diabetes- Primary Other abnormal glucose Diabetes type 2, controlled (HCC) Type II or unspecified type diabetes mellitus without mention of complication, not stated as uncontrolled Hirsutism Mixed hyperlipidemia Obesity Obesity, unspecified Need for prophylactic vaccination against Streptococcus pneumoniae (pneumococcus) Need for prophylactic vaccination against streptococcus pneumoniae (pneumococcus) Apocrine cyst- Primary Other specified disorder of sweat glands Breast screening Breast screening, unspecified Well adult exam- Primary Routine general medical examination at a health care facility Controlled type 2 diabetes mellitus without complication, without long-term current use of insulin ([facility]) Diabetic eye exam ([facility]) Type II or unspecified type diabetes mellitus without mention of complication, not stated as uncontrolled Essential hypertension Unspecified essential hypertension Mixed hyperlipidemia Polyarthralgia Pain in joint, multiple sites Rheumatoid arthritis involving multiple sites, unspecified whether rheumatoid factor present ([facility]) Fibromyalgia Mylagia and myositis, unspecified Hirsutism Obesity, Class III, BMI 40-49.9 (morbid obesity) ([facility]) Morbid obesity Pancreatic cyst Cyst and pseudocyst of pancreas Advance directive discussed with patient Other specified counseling [facility] Diagnosis Encounter to establish care- Primary Other reasons for seeking consultation Mixed hyperlipidemia Type II or unspecified type diabetes mellitus without mention of complication, not stated as uncontrolled Hirsutism Plantar fasciitis Plantar fascial fibromatosis Dysmetabolic syndrome X Dysmetabolic Syndrome X Obesity Obesity, unspecified Mixed hyperlipidemia- Primary Type II or unspecified type diabetes mellitus without mention of complication, not stated as uncontrolled Obesity Obesity, unspecified Routine health maintenance Routine general medical examination at a health care facility Breast mass in female Lump or mass in breast Pre-diabetes- Primary Other abnormal glucose Diabetes type 2, controlled (HCC) Type II or unspecified type diabetes mellitus without mention of complication, not stated as uncontrolled Hirsutism Mixed hyperlipidemia Obesity Obesity, unspecified Need for prophylactic vaccination against Streptococcus pneumoniae (pneumococcus) Need for prophylactic vaccination against streptococcus pneumoniae (pneumococcus) Apocrine cyst- Primary Other specified disorder of sweat glands Breast screening Breast screening, unspecified Essential hypertension Unspecified essential hypertension [facility] Diagnosis Encounter to establish care- Primary Other reasons for seeking consultation Mixed hyperlipidemia Type II or unspecified type diabetes mellitus without mention of complication, not stated as uncontrolled Hirsutism Plantar fasciitis Plantar fascial fibromatosis Dysmetabolic syndrome X Dysmetabolic Syndrome X Obesity Obesity, unspecified Mixed hyperlipidemia- Primary Type II or unspecified type diabetes mellitus without mention of complication, not stated as uncontrolled Obesity Obesity, unspecified Routine health maintenance Routine general medical examination at a health care facility Breast mass in female Lump or mass in breast Pre-diabetes- Primary Other abnormal glucose Diabetes type 2, controlled (HCC) Type II or unspecified type diabetes mellitus without mention of complication, not stated as uncontrolled Hirsutism Mixed hyperlipidemia Obesity Obesity, unspecified Need for prophylactic vaccination against Streptococcus pneumoniae (pneumococcus) Need for prophylactic vaccination against streptococcus pneumoniae (pneumococcus) Apocrine cyst- Primary Other specified disorder of sweat glands Breast screening Breast screening, unspecified Pancreatic cyst Cyst and pseudocyst of pancreas documented in this encounter [facility] note* Diagnosis Encounter to establish care- Primary Other reasons for seeking consultation Mixed hyperlipidemia Type II or unspecified type diabetes mellitus without mention of complication, not stated as uncontrolled Hirsutism Plantar fasciitis Plantar fascial fibromatosis Dysmetabolic syndrome X Dysmetabolic Syndrome X Obesity Obesity, unspecified Mixed hyperlipidemia- Primary Type II or unspecified type diabetes mellitus without mention of complication, not stated as uncontrolled Obesity Obesity, unspecified Routine health maintenance Routine general medical examination at a health care facility Breast mass in female Lump or mass in breast Pre-diabetes- Primary Other abnormal glucose Diabetes type 2, controlled (HCC) Type II or unspecified type diabetes mellitus without mention of complication, not stated as uncontrolled Hirsutism Mixed hyperlipidemia Obesity Obesity, unspecified Need for prophylactic vaccination against Streptococcus pneumoniae (pneumococcus) Need for prophylactic vaccination against streptococcus pneumoniae (pneumococcus) Apocrine cyst- Primary Other specified disorder of sweat glands Breast screening Breast screening, unspecified Pancreatic cyst- Primary Cyst and pseudocyst of pancreas documented in this encounter [facility] note* Diagnosis Encounter to establish care- Primary Other reasons for seeking consultation Mixed hyperlipidemia Type II or unspecified type diabetes mellitus without mention of complication, not stated as uncontrolled Hirsutism Plantar fasciitis Plantar fascial fibromatosis Dysmetabolic syndrome X Dysmetabolic Syndrome X Obesity Obesity, unspecified Mixed hyperlipidemia- Primary Type II or unspecified type diabetes mellitus without mention of complication, not stated as uncontrolled Obesity Obesity, unspecified Routine health maintenance Routine general medical examination at a health care facility Breast mass in female Lump or mass in breast Pre-diabetes- Primary Other abnormal glucose Diabetes type 2, controlled (HCC) Type II or unspecified type diabetes mellitus without mention of complication, not stated as uncontrolled Hirsutism Mixed hyperlipidemia Obesity Obesity, unspecified Need for prophylactic vaccination against Streptococcus pneumoniae (pneumococcus) Need for prophylactic vaccination against streptococcus pneumoniae (pneumococcus) Apocrine cyst- Primary Other specified disorder of sweat glands Breast screening Breast screening, unspecified Controlled type 2 diabetes mellitus without complication, without long-term current use of insulin (HCC)- Primary Essential hypertension Unspecified essential hypertension Mixed hyperlipidemia Encounter for screening mammogram for breast cancer Screening for depression Fibromyalgia Mylagia and myositis, unspecified Obesity, Class III, BMI 40-49.9 (morbid obesity) (HCC) Morbid obesity Diabetic eye exam (HCC) Type II or unspecified type diabetes mellitus without mention of complication, not stated as uncontrolled Rheumatoid arthritis involving multiple sites, unspecified whether rheumatoid factor present ([facility]) documented in this encounter [facility] note* Diagnosis Encounter to establish care- Primary Other reasons for seeking consultation Mixed hyperlipidemia Type II or unspecified type diabetes mellitus without mention of complication, not stated as uncontrolled Hirsutism Plantar fasciitis Plantar fascial fibromatosis Dysmetabolic syndrome X Dysmetabolic Syndrome X Obesity Obesity, unspecified Mixed hyperlipidemia- Primary Type II or unspecified type diabetes mellitus without mention of complication, not stated as uncontrolled Obesity Obesity, unspecified Routine health maintenance Routine general medical examination at a health care facility Breast mass in female Lump or mass in breast Pre-diabetes- Primary Other abnormal glucose Diabetes type 2, controlled (HCC) Type II or unspecified type diabetes mellitus without mention of complication, not stated as uncontrolled Hirsutism Mixed hyperlipidemia Obesity Obesity, unspecified Need for prophylactic vaccination against Streptococcus pneumoniae (pneumococcus) Need for prophylactic vaccination against streptococcus pneumoniae (pneumococcus) Apocrine cyst- Primary Other specified disorder of sweat glands Breast screening Breast screening, unspecified Encounter for screening mammogram for breast cancer documented in this encounter [facility] note* Diagnosis Encounter to establish care- Primary Other reasons for seeking consultation Mixed hyperlipidemia Type II or unspecified type diabetes mellitus without mention of complication, not stated as uncontrolled Hirsutism Plantar fasciitis Plantar fascial fibromatosis Dysmetabolic syndrome X Dysmetabolic Syndrome X Obesity Obesity, unspecified Mixed hyperlipidemia- Primary Type II or unspecified type diabetes mellitus without mention of complication, not stated as uncontrolled Obesity Obesity, unspecified Routine health maintenance Routine general medical examination at a health care facility Breast mass in female Lump or mass in breast Pre-diabetes- Primary Other abnormal glucose Diabetes type 2, controlled (HCC) Type II or unspecified type diabetes mellitus without mention of complication, not stated as uncontrolled Hirsutism Mixed hyperlipidemia Obesity Obesity, unspecified Need for prophylactic vaccination against Streptococcus pneumoniae (pneumococcus) Need for prophylactic vaccination against streptococcus pneumoniae (pneumococcus) Apocrine cyst- Primary Other specified disorder of sweat glands Breast screening Breast screening, unspecified Acute pain of right shoulder- Primary Bursitis of right shoulder Disorders of bursae and tendons in shoulder region, unspecified Acute pain of right shoulder documented in this encounter [facility] note* Diagnosis Encounter to establish care- Primary Other reasons for seeking consultation Mixed hyperlipidemia Type II or unspecified type diabetes mellitus without mention of complication, not stated as uncontrolled Hirsutism Plantar fasciitis Plantar fascial fibromatosis Dysmetabolic syndrome X Dysmetabolic Syndrome X Obesity Obesity, unspecified Mixed hyperlipidemia- Primary Type II or unspecified type diabetes mellitus without mention of complication, not stated as uncontrolled Obesity Obesity, unspecified Routine health maintenance Routine general medical examination at a health care facility Breast mass in female Lump or mass in breast Pre-diabetes- Primary Other abnormal glucose Diabetes type 2, controlled (HCC) Type II or unspecified type diabetes mellitus without mention of complication, not stated as uncontrolled Hirsutism Mixed hyperlipidemia Obesity Obesity, unspecified Need for prophylactic vaccination against Streptococcus pneumoniae (pneumococcus) Need for prophylactic vaccination against streptococcus pneumoniae (pneumococcus) Apocrine cyst- Primary Other specified disorder of sweat glands Breast screening Breast screening, unspecified Acute pain of right shoulder documented in this encounter [facility] note* Diagnosis Encounter to establish care- Primary Other reasons for seeking consultation Mixed hyperlipidemia Type II or unspecified type diabetes mellitus without mention of complication, not stated as uncontrolled Hirsutism Plantar fasciitis Plantar fascial fibromatosis Dysmetabolic syndrome X Dysmetabolic Syndrome X Obesity Obesity, unspecified Mixed hyperlipidemia- Primary Type II or unspecified type diabetes mellitus without mention of complication, not stated as uncontrolled Obesity Obesity, unspecified Routine health maintenance Routine general medical examination at a health care facility Breast mass in female Lump or mass in breast Pre-diabetes- Primary Other abnormal glucose Diabetes type 2, controlled (HCC) Type II or unspecified type diabetes mellitus without mention of complication, not stated as uncontrolled Hirsutism Mixed hyperlipidemia Obesity Obesity, unspecified Need for prophylactic vaccination against Streptococcus pneumoniae (pneumococcus) Need for prophylactic vaccination against streptococcus pneumoniae (pneumococcus) Apocrine cyst- Primary Other specified disorder of sweat glands Breast screening Breast screening, unspecified Impacted cerumen of right ear- Primary Impacted cerumen documented in this encounter [facility] note* Diagnosis Encounter to establish care- Primary Other reasons for seeking consultation Mixed hyperlipidemia Type II or unspecified type diabetes mellitus without mention of complication, not stated as uncontrolled Hirsutism Plantar fasciitis Plantar fascial fibromatosis Dysmetabolic syndrome X Dysmetabolic Syndrome X Obesity Obesity, unspecified Mixed hyperlipidemia- Primary Type II or unspecified type diabetes mellitus without mention of complication, not stated as uncontrolled Obesity Obesity, unspecified Routine health maintenance Routine general medical examination at a health care facility Breast mass in female Lump or mass in breast Pre-diabetes- Primary Other abnormal glucose Diabetes type 2, controlled (HCC) Type II or unspecified type diabetes mellitus without mention of complication, not stated as uncontrolled Hirsutism Mixed hyperlipidemia Obesity Obesity, unspecified Need for prophylactic vaccination against Streptococcus pneumoniae (pneumococcus) Need for prophylactic vaccination against streptococcus pneumoniae (pneumococcus) Apocrine cyst- Primary Other specified disorder of sweat glands Breast screening Breast screening, unspecified Chronic pain of left knee- Primary Pain in joint, lower leg Chronic pain of left knee Pain in joint, lower leg documented in this encounter [facility] note* Diagnosis Encounter to establish care- Primary Other reasons for seeking consultation Mixed hyperlipidemia Type II or unspecified type diabetes mellitus without mention of complication, not stated as uncontrolled Hirsutism Plantar fasciitis Plantar fascial fibromatosis Dysmetabolic syndrome X Dysmetabolic Syndrome X Obesity Obesity, unspecified Mixed hyperlipidemia- Primary Type II or unspecified type diabetes mellitus without mention of complication, not stated as uncontrolled Obesity Obesity, unspecified Routine health maintenance Routine general medical examination at a health care facility Breast mass in female Lump or mass in breast Pre-diabetes- Primary Other abnormal glucose Diabetes type 2, controlled (HCC) Type II or unspecified type diabetes mellitus without mention of complication, not stated as uncontrolled Hirsutism Mixed hyperlipidemia Obesity Obesity, unspecified Need for prophylactic vaccination against Streptococcus pneumoniae (pneumococcus) Need for prophylactic vaccination against streptococcus pneumoniae (pneumococcus) Apocrine cyst- Primary Other specified disorder of sweat glands Breast screening Breast screening, unspecified Chronic pain of left knee Pain in joint, lower leg documented in this encounter [facility] note* Diagnosis Encounter to establish care- Primary Other reasons for seeking consultation Mixed hyperlipidemia Type II or unspecified type diabetes mellitus without mention of complication, not stated as uncontrolled Hirsutism Plantar fasciitis Plantar fascial fibromatosis Dysmetabolic syndrome X Dysmetabolic Syndrome X Obesity Obesity, unspecified Mixed hyperlipidemia- Primary Type II or unspecified type diabetes mellitus without mention of complication, not stated as uncontrolled Obesity Obesity, unspecified Routine health maintenance Routine general medical examination at a health care facility Breast mass in female Lump or mass in breast Pre-diabetes- Primary Other abnormal glucose Diabetes type 2, controlled (HCC) Type II or unspecified type diabetes mellitus without mention of complication, not stated as uncontrolled Hirsutism Mixed hyperlipidemia Obesity Obesity, unspecified Need for prophylactic vaccination against Streptococcus pneumoniae (pneumococcus) Need for prophylactic vaccination against streptococcus pneumoniae (pneumococcus) Apocrine cyst- Primary Other specified disorder of sweat glands Breast screening Breast screening, unspecified Acute cough- Primary Viral illness Unspecified viral infection, in conditions classified elsewhere and of unspecified site Acute cough documented in this encounter [facility] note* Diagnosis Encounter to establish care- Primary Other reasons for seeking consultation Mixed hyperlipidemia Type II or unspecified type diabetes mellitus without mention of complication, not stated as uncontrolled Hirsutism Plantar fasciitis Plantar fascial fibromatosis Dysmetabolic syndrome X Dysmetabolic Syndrome X Obesity Obesity, unspecified Mixed hyperlipidemia- Primary Type II or unspecified type diabetes mellitus without mention of complication, not stated as uncontrolled Obesity Obesity, unspecified Routine health maintenance Routine general medical examination at a health care facility Breast mass in female Lump or mass in breast Pre-diabetes- Primary Other abnormal glucose Diabetes type 2, controlled (HCC) Type II or unspecified type diabetes mellitus without mention of complication, not stated as uncontrolled Hirsutism Mixed hyperlipidemia Obesity Obesity, unspecified Need for prophylactic vaccination against Streptococcus pneumoniae (pneumococcus) Need for prophylactic vaccination against streptococcus pneumoniae (pneumococcus) Apocrine cyst- Primary Other specified disorder of sweat glands Breast screening Breast screening, unspecified [facility] Diagnosis Encounter to establish care- Primary Other reasons for seeking consultation Mixed hyperlipidemia Type II or unspecified type diabetes mellitus without mention of complication, not stated as uncontrolled Hirsutism Plantar fasciitis Plantar fascial fibromatosis Dysmetabolic syndrome X Dysmetabolic Syndrome X Obesity Obesity, unspecified Mixed hyperlipidemia- Primary Type II or unspecified type diabetes mellitus without mention of complication, not stated as uncontrolled Obesity Obesity, unspecified Routine health maintenance Routine general medical examination at a health care facility Breast mass in female Lump or mass in breast Pre-diabetes- Primary Other abnormal glucose Diabetes type 2, controlled (HCC) Type II or unspecified type diabetes mellitus without mention of complication, not stated as uncontrolled Hirsutism Mixed hyperlipidemia Obesity Obesity, unspecified Need for prophylactic vaccination against Streptococcus pneumoniae (pneumococcus) Need for prophylactic vaccination against streptococcus pneumoniae (pneumococcus) Apocrine cyst- Primary Other specified disorder of sweat glands Breast screening Breast screening, unspecified Medicare annual wellness visit, initial- Primary Routine general medical examination at a [facility] Advance directive discussed with patient Other specified counseling Essential hypertension Unspecified essential hypertension Mixed hyperlipidemia Controlled type 2 diabetes mellitus without complication, without long-term current use of insulin (HCC) Fibromyalgia Mylagia and myositis, unspecified Pancreatic cyst (HCC) Cyst and pseudocyst of pancreas Rheumatoid arthritis involving multiple sites, unspecified whether rheumatoid factor present (HCC) Encounter for Medicare annual wellness exam Routine general medical examination at a [facility] Obesity, Class III, BMI 40-49.9 (morbid obesity) (HCC) Morbid obesity Hemangioma of liver Hemangioma of intra-abdominal structures Well woman exam Routine general medical examination at a [facility] Microscopic hematuria Type 2 diabetes mellitus with diabetic neuropathy, without long-term current use of insulin (HCC) [facility] Diagnosis Encounter to establish care- Primary Other reasons for seeking consultation Mixed hyperlipidemia Type II or unspecified type diabetes mellitus without mention of complication, not stated as uncontrolled Hirsutism Plantar fasciitis Plantar fascial fibromatosis Dysmetabolic syndrome X Dysmetabolic Syndrome X Obesity Obesity, unspecified Mixed hyperlipidemia- Primary Type II or unspecified type diabetes mellitus without mention of complication, not stated as uncontrolled Obesity Obesity, unspecified Routine health maintenance Routine general medical examination at a [facility] Breast mass in female Lump or mass in breast Pre-diabetes- Primary Other abnormal glucose Diabetes type 2, controlled (HCC) Type II or unspecified type diabetes mellitus without mention of complication, not stated as uncontrolled Hirsutism Mixed hyperlipidemia Obesity Obesity, unspecified Need for prophylactic vaccination against Streptococcus pneumoniae (pneumococcus) Need for prophylactic vaccination against streptococcus pneumoniae (pneumococcus) Apocrine cyst- Primary Other specified disorder of sweat glands Breast screening Breast screening, unspecified Acute pain of left shoulder- Primary Rheumatoid arthritis involving multiple sites, unspecified whether rheumatoid factor present (HCC) [facility] Diagnosis Encounter to establish care- Primary Other reasons for seeking consultation Mixed hyperlipidemia Type II or unspecified type diabetes mellitus without mention of complication, not stated as uncontrolled Hirsutism Plantar fasciitis Plantar fascial fibromatosis Dysmetabolic syndrome X Dysmetabolic Syndrome X Obesity Obesity, unspecified Mixed hyperlipidemia- Primary Type II or unspecified type diabetes mellitus without mention of complication, not stated as uncontrolled Obesity Obesity, unspecified Routine health maintenance Routine general medical examination at a health care facility Breast mass in female Lump or mass in breast Pre-diabetes- Primary Other abnormal glucose Diabetes type 2, controlled (HCC) Type II or unspecified type diabetes mellitus without mention of complication, not stated as uncontrolled Hirsutism Mixed hyperlipidemia Obesity Obesity, unspecified Need for prophylactic vaccination against Streptococcus pneumoniae (pneumococcus) Need for prophylactic vaccination against streptococcus pneumoniae (pneumococcus) Apocrine cyst- Primary Other specified disorder of sweat glands Breast screening Breast screening, unspecified Essential hypertension- Primary Unspecified essential hypertension documented in this encounter [facility] for referral (narrative)* Diagnostic Procedure Only (Routine) - Pending Review Specialty Diagnoses / Procedures Referred By Yonathan chaves Referred To Contact [facility] Diagnoses Encounter for screening mammogram for breast cancer Procedures BUDDY SCREENING SCREENING MAMMOGRAPHY BI 2-VIEW BREAST INC CAD Laurent Pagan MD [address] [place] [address] [facility] [employer] [place] [address] Referral ID Status Reason Start Date Expiration Date Visits Requested Visits Authorized [id number] Pending Review Auto-Generat ed Referral 12/07/2022 01/06/2024 1 1 [facility] for referral (narrative)* Diagnostic Procedure Only (Routine) - Pending Review Specialty Diagnoses / Procedures Referred By Yonathan chaves Referred To Contact [facility] Diagnoses Encounter for screening mammogram for breast cancer Procedures BUDDY SCREENING SCREENING MAMMOGRAPHY BI 2-VIEW BREAST INC CAD Laurent Pagan MD [address] [place] [address] [facility] [address] [address] Referral ID Status Reason Start Date Expiration Date Visits Requested Visits Authorized [id number] Pending Review Auto-Generat ed Referral 11/22/2023 12/21/2024 1 1 [facility] for referral (narrative)* Diagnostic Procedure Only (Routine) - Pending Review Specialty Diagnoses / Procedures Referred By Contac t Referred To Contact [facility] Diagnoses Abnormal mammogram Procedures US BREAST LTD RIGHT US BREAST UNI REAL TIME WITH IMAGE LIMITED Vanessa Berg PA-C [address] [place] [address] [facility] [address] [place] [address] Referral ID Status Reason Start Date Expiration Date Visits Requested Visits Authorized [id number] Pending Review Auto-Generat ed Referral 01/23/2024 02/21/2025 1 1 * Diagnostic Procedure Only (Routine) - Authorized Specialty Diagnoses / Procedures Referred By Contac t Referred To Contact [facility] Diagnoses Abnormal mammogram Procedures BUDDY DIAGNOSTIC RIGHT DIAGNOSTIC MAMMOGRAPHY COMPUTER-AIDED DETCJ UNI Vanessa Berg PA-C [address] [place] [address] [facility] [address] [place] [address] Referral ID Status Reason Start Date Expiration Date Visits Requested Visits Authorized [id number] Authorized Auto-Generat ed Referral 01/23/2024 02/21/2025 1 1 [facility] for referral (narrative)* Diagnostic Procedure Only (Routine) - Closed Specialty Diagnoses / Procedures Referred By Contac t Referred To Contact [facility] Diagnoses Encounter for screening mammogram for breast cancer Procedures BUDDY SCREENING SCREENING MAMMOGRAPHY BI 2-VIEW BREAST INC CAD Laurent Pagan MD [address] [place] [address] [facility] [address] [place] [address] Referral ID Status Reason Start Date Expiration Date V isits Requested Visits Authorized [id number] Closed Auto-Generate d Referral 11/22/2023 12/21/2024 1 1 [facility] for referral (narrative)No reason for referral information availableWSamaritan [facility] Work Phone: Reason for visit Narrative* Diagnostic Procedure Only (Routine) - Closed Specialty Diagnoses / Procedures Referred By Contac t Referred To Contact [facility] Diagnoses Encounter for screening mammogram for breast cancer Procedures BUDDY SCREENING SCREENING MAMMOGRAPHY BI 2-VIEW BREAST INC CAD Laurent Pagan MD [address] [place] [address] [facility] [address] [place] [address] Referral ID Status Reason Start Date Expiration Date V isits Requested Visits Authorized [id number] Closed Auto-Generate d Referral 11/22/2023 12/21/2024 1 1 [facility] for visit Narrative* Diagnostic Procedure Only (Routine) - Closed Specialty Diagnoses / Procedures Referred By Contac t Referred To Contact [facility] Diagnoses Abnormal mammogram Procedures BUDDY DIAGNOSTIC RIGHT DIAGNOSTIC MAMMOGRAPHY COMPUTER-AIDED DETCJ UNI Vanessa Berg PA-C [address] [place] [address] [facility] [address] [place] [address] Referral ID Status Reason Start Date Expiration Date V isits Requested Visits Authorized [id number] Closed Auto-Generate d Referral 01/23/2024 02/21/2025 1 1 [facility] for visit Narrative* Diagnostic Procedure Only (Routine) - Authorized Specialty Diagnoses / Procedures Referred By Contac t Referred To Contact [facility] Diagnoses Abnormal mammogram Procedures US BREAST LTD RIGHT US BREAST UNI REAL TIME WITH IMAGE LIMITED Vanessa Berg PA-C [address] [place] [address] [facility] [address] [place] [address] Referral ID Status Reason Start Date Expiration Date Visits Requested Visits Authorized [id number] Authorized Auto-Generat ed Referral 01/23/2024 02/21/2025 1 1 [facility] for visit Narrative* Diagnostic Procedure Only (Routine) - Closed Specialty Diagnoses / Procedures Referred By Contac t Referred To Contact [facility] Diagnoses Encounter for screening mammogram for breast cancer Procedures BUDDY SCREENING W HCASE SCREENING DIGITAL BREAST TOMOSYNTHESIS BI SCREENING MAMMOGRAPHY BI 2-VIEW BREAST INC CAD Vanessa Berg PA-C [address] [place] [address] Phone: tel: fax: [facility] [address] [place] [address] Referral ID Status Reason Start Date Expiration Date V isits Requested Visits Authorized [id number] Closed Auto-Generate d Referral 12/25/2024 01/24/2026 1 1 [facility] for visit Narrative* Diagnostic Procedure Only (Urgent) - Closed Specialty Diagnoses / Procedures Referred By Contac t Referred To Contact X[facility] IMAGING Diagnoses Acute pain of right shoulder Procedures XR SHOULDER [id number] AP/TRUE AP RIGHT RADEX SHOULDER COMPLETE MINIMUM 2 VIEWS Gregory Nino MD [address] [place] [address] Phone: tel: fax: [place] [address] Referral ID Status Reason Start Date Expiration Date V isits Requested Visits Authorized [id number] Closed Auto-Generate d Referral 02/03/2025 03/05/2026 1 1 [facility] for visit Narrative* Diagnostic Procedure Only (Urgent) - Closed Specialty Diagnoses / Procedures Referred By Contac t Referred To Contact XR IMAGING Diagnoses Chronic pain of left knee Procedures XR KNEE GENERAL 4V AP BOTH/PA BOTH/LAT/MERC LEFT RADIOLOGIC EXAM KNEE COMPLETE 4/MORE VIEWS Gregory Rincon PA-C [address] [place] [address] Phone: tel: fax: [place] [address] Referral ID Status Reason Start Date Expiration Date V isits Requested Visits Authorized [id number] Closed Auto-Generate d Referral 05/28/2025 06/27/2026 1 1 [facility] Summary Purpose Family History No Family History Records FoundNo Family History Records FoundNo Family History Records Found Advance Directives No Advanced Directives Records Found Advance Directive Response Recorded Date/ Time Living Will No May 14, 2021 10:17pm Power of Histotechnician No May 14 10:17pm Documents on File Type Date Recorded Patient City Planner Expl anation Advance Directive(s) 06/30/2021 8:05 AM Advance Directive Response Recorded Date/ Time Living Will No May 14, 2021 9:17pm Power of Histotechnician No May 14 9:17pm Advance Directive Response Recorded Date/ Time Living Will No July 31 5:43pm Power of Histotechnician No July 31, 2023 5:43pm Advance Directive Response Recorded Date/ Time Living Will No July 31 4:43pm Power of Histotechnician No July 31, 2023 4:43pm Chief Complaint and Reason for Visit Chief Complaint ABD PAIN Chief Complaint Admit Date KNEE RX HERE June 12, 2025 6: 09pm Chief Complaint Admit Date KNEE RX HERE August 11, 2025 5 :00pm Reason for Referral Specialty Diagnoses / Procedures Referred By Dayoac t Referred To Contact MR IMAGING Diagnoses Liver lesion, right lobe Procedures MRI LIVER WO/W IVCON MRI ABDOMEN W/O & W/CONTRAST MATERIAL Laurent Pagan MD [address] [place] [address] [id number] Referral ID Status Reason Start Date Expiration Date Visits Requested Visits Authorized [id number] Authorized Auto-Generat ed Referral 09/13/2024 1 1 Referral ID Status Reason Start Date Expiration Date V isits Requested Visits Authorized [id number] Closed Auto-Generate d Referral 08/15/2023 09/13/2024 1 1 Specialty Diagnoses / Procedures Referred By Dayoac t Referred To Contact [facility] IMAGING Diagnoses Pancreatic cyst Procedures MRI 3D POST PROCESSING 3D RENDERING W/INTERP&POSTPROC DIFF WORK STATION Laurent Pagan MD [address] [place] [address] [id number] Referral ID Status Reason Start Date Expiration Date Visits Requested Visits Authorized [id number] New Request Auto-Generat ed Referral 09/23/2024 07/26/2025 1 1 Specialty Diagnoses / Procedures [facility] Contact [facility] Diagnoses Pancreatic cyst Procedures MRI PANC/OTONIEL WO/W IVCON MRI ABDOMEN W/O & W/CONTRAST MATERIAL Laurent Pagan MD [address] [place] [address] [place] [address] Referral ID Status Reason Start Date Expiration Date Visits Requested Visits Authorized [id number] New Request Auto-Generat ed Referral 09/23/2024 07/26/2025 1 1 Additional Source Comments INFORMATION SOURCE (unrecogn ized section and content) DATE CREATED AUTHOR 10/19/2018 [employer] [facility] DATE CREATED AUTHOR AUTHOR'S ORGANIZ ATION 08/21/2025 [facility] DATE CREATED AUTHOR AUTHOR'S ORGANIZ ATION 08/21/2025 [facility] Goals (unrecognized section and content) Goals may be documented in a n alternate sectionGoals may be documented in an alternate sectionGoals may be documented in an alternate sectionGoals may be documented in an alternate sectionGoals may be documented in an alternate sectionGoals may be documented in an alternate sectionGoals may be documented in an alternate sectionGoals may be documented in an alternate sectionGoals may be documented in an alternate sectionGoals may be documented in an alternate sectionGoals may be documented in an alternate sectionGoals may be documented in an alternate sectionGoals may be documented in an alternate section Source Comments (unrecognize d section and content) In the event this informatio n is protected by the Federal Confidentiality of Alcohol and Drug Abuse Patient Records regulations: The Federal rules restrict any use of the information to criminally investigate or prosecute any alcohol or drug abuse patient.[facility] the event this information is protected by the Federal Confidentiality of Alcohol and Drug Abuse Patient Records regulations: The Federal rules restrict any use of the information to criminally investigate or prosecute any alcohol or drug abuse patient.[facility] the event this information is protected by the Federal Confidentiality of Alcohol and Drug Abuse Patient Records regulations: The Federal rules restrict any use of the information to criminally investigate or prosecute any alcohol or drug abuse patient.[facility] the event this information is protected by the Federal Confidentiality of Alcohol and Drug Abuse Patient Records regulations: The Federal rules restrict any use of the information to criminally investigate or prosecute any alcohol or drug abuse patient.[facility] the event this information is protected by the Federal Confidentiality of Alcohol and Drug Abuse Patient Records regulations: The Federal rules restrict any use of the information to criminally investigate or prosecute any alcohol or drug abuse patient.[facility] the event this information is protected by the Federal Confidentiality of Alcohol and Drug Abuse Patient Records regulations: The Federal rules restrict any use of the information to criminally investigate or prosecute any alcohol or drug abuse patient.[facility] the event this information is protected by the Federal Confidentiality of Alcohol and Drug Abuse Patient Records regulations: The Federal rules restrict any use of the information to criminally investigate or prosecute any alcohol or drug abuse patient.[facility] the event this information is protected by the Federal Confidentiality of Alcohol and Drug Abuse Patient Records regulations: The Federal rules restrict any use of the information to criminally investigate or prosecute any alcohol or drug abuse patient.[facility] the event this information is protected by the Federal Confidentiality of Alcohol and Drug Abuse Patient Records regulations: The Federal rules restrict any use of the information to criminally investigate or prosecute any alcohol or drug abuse patient.[facility] the event this information is protected by the Federal Confidentiality of Alcohol and Drug Abuse Patient Records regulations: The Federal rules restrict any use of the information to criminally investigate or prosecute any alcohol or drug abuse patient.[facility] [facility] HospitalIn the event this information is protected by the Federal Confidentiality of Alcohol and Drug Abuse Patient Records regulations: The Federal rules restrict any use of the information to criminally investigate or prosecute any alcohol or drug abuse patient.[facility] HospitalIn the event this information is protected by the Federal Confidentiality of Alcohol and Drug Abuse Patient Records regulations: The Federal rules restrict any use of the information to criminally investigate or prosecute any alcohol or drug abuse patient.[facility] HospitalIn the event this information is protected by the Federal Confidentiality of Alcohol and Drug Abuse Patient Records regulations: The Federal rules restrict any use of the information to criminally investigate or prosecute any alcohol or drug abuse patient.[facility] HospitalIn the event this information is protected by the Federal Confidentiality of Alcohol and Drug Abuse Patient Records regulations: The Federal rules restrict any use of the information to criminally investigate or prosecute any alcohol or drug abuse patient.[facility] HospitalIn the event this information is protected by the Federal Confidentiality of Alcohol and Drug Abuse Patient Records regulations: The Federal rules restrict any use of the information to criminally investigate or prosecute any alcohol or drug abuse patient.[facility] HospitalIn the event this information is protected by the Federal Confidentiality of Alcohol and Drug Abuse Patient Records regulations: The Federal rules restrict any use of the information to criminally investigate or prosecute any alcohol or drug abuse patient.[facility] HospitalIn the event this information is protected by the Federal Confidentiality of Alcohol and Drug Abuse Patient Records regulations: The Federal rules restrict any use of the information to criminally investigate or prosecute any alcohol or drug abuse patient.[facility] HospitalIn the event this information is protected by the Federal Confidentiality of Alcohol and Drug Abuse Patient Records regulations: The Federal rules restrict any use of the information to criminally investigate or prosecute any alcohol or drug abuse patient.[facility] HospitalIn the event this information is protected by the Federal Confidentiality of Alcohol and Drug Abuse Patient Records regulations: The Federal rules restrict any use of the information to criminally investigate or prosecute any alcohol or drug abuse patient.[facility] HospitalIn the event this information is protected by the Federal Confidentiality of Alcohol and Drug Abuse Patient Records regulations: The Federal rules restrict any use of the information to criminally investigate or prosecute any alcohol or drug abuse patient.[facility] HospitalIn the event this information is protected by the Federal Confidentiality of Alcohol and Drug Abuse Patient Records regulations: The Federal rules restrict any use of the information to criminally investigate or prosecute any alcohol or drug abuse patient.[facility] HospitalIn the event this information is protected by the Federal Confidentiality of Alcohol and Drug Abuse Patient Records regulations: The Federal rules restrict any use of the information to criminally investigate or prosecute any alcohol or drug abuse patient.[facility] HospitalIn the event this information is protected by the Federal Confidentiality of Alcohol and Drug Abuse Patient Records regulations: The Federal rules restrict any use of the information to criminally investigate or prosecute any alcohol or drug abuse patient.[facility] HospitalIn the event this information is protected by the Federal Confidentiality of Alcohol and Drug Abuse Patient Records regulations: The Federal rules restrict any use of the information to criminally investigate or prosecute any alcohol or drug abuse patient.[facility] HospitalIn the event this information is protected by the Federal Confidentiality of Alcohol and Drug Abuse Patient Records regulations: The Federal rules restrict any use of the information to criminally investigate or prosecute any alcohol or drug abuse patient.[facility] HospitalIn the event this information is protected by the Federal Confidentiality of Alcohol and Drug Abuse Patient Records regulations: The Federal rules restrict any use of the information to criminally investigate or prosecute any alcohol or drug abuse patient.[facility] HospitalIn the event this information is protected by the Federal Confidentiality of Alcohol and Drug Abuse Patient Records regulations: The Federal rules restrict any use of the information to criminally investigate or prosecute any alcohol or drug abuse patient.[facility] HospitalIn the event this information is protected by the Federal Confidentiality of Alcohol and Drug Abuse Patient Records regulations: The Federal rules restrict any use of the information to criminally investigate or prosecute any alcohol or drug abuse patient.[facility] HospitalIn the event this information is protected by the Federal Confidentiality of Alcohol and Drug Abuse Patient Records regulations: The Federal rules restrict any use of the information to criminally investigate or prosecute any alcohol or drug abuse patient.[facility] HospitalIn the event this information is protected by the Federal Confidentiality of Alcohol and Drug Abuse Patient Records regulations: The Federal rules restrict any use of the information to criminally investigate or prosecute any alcohol or drug abuse patient.[facility] HospitalIn the event this information is protected by the Federal Confidentiality of Alcohol and Drug Abuse Patient Records regulations: The Federal rules restrict any use of the information to criminally investigate or prosecute any alcohol or drug abuse patient.[facility] HospitalIn the event this information is protected by the Federal Confidentiality of Alcohol and Drug Abuse Patient Records regulations: The Federal rules restrict any use of the information to criminally investigate or prosecute any alcohol or drug abuse patient.[facility] HospitalIn the event this information is protected by the Federal Confidentiality of Alcohol and Drug Abuse Patient Records regulations: The Federal rules restrict any use of the information to criminally investigate or prosecute any alcohol or drug abuse patient.[facility] HospitalIn the event this information is protected by the Federal Confidentiality of Alcohol and Drug Abuse Patient Records regulations: The Federal rules restrict any use of the information to criminally investigate or prosecute any alcohol or drug abuse patient.[facility] HospitalIn the event this information is protected by the Federal Confidentiality of Alcohol and Drug Abuse Patient Records regulations: The Federal rules restrict any use of the information to criminally investigate or prosecute any alcohol or drug abuse patient.[facility] HospitalIn the event this information is protected by the Federal Confidentiality of Alcohol and Drug Abuse Patient Records regulations: The Federal rules restrict any use of the information to criminally investigate or prosecute any alcohol or drug abuse patient.[facility] HospitalIn the event this information is protected by the Federal Confidentiality of Alcohol and Drug Abuse Patient Records regulations: The Federal rules restrict any use of the information to criminally investigate or prosecute any alcohol or drug abuse patient.[facility] HospitalIn the event this information is protected by the Federal Confidentiality of Alcohol and Drug Abuse Patient Records regulations: The Federal rules restrict any use of the information to criminally investigate or prosecute any alcohol or drug abuse patient.[facility] HospitalIn the event this information is protected by the Federal Confidentiality of Alcohol and Drug Abuse Patient Records regulations: The Federal rules restrict any use of the information to criminally investigate or prosecute any alcohol or drug abuse patient.[facility] HospitalIn the event this information is protected by the Federal Confidentiality of Alcohol and Drug Abuse Patient Records regulations: The Federal rules restrict any use of the information to criminally investigate or prosecute any alcohol or drug abuse patient.[facility] HospitalIn the event this information is protected by the Federal Confidentiality of Alcohol and Drug Abuse Patient Records regulations: The Federal rules restrict any use of the information to criminally investigate or prosecute any alcohol or drug abuse patient.[facility] HospitalIn the event this information is protected by the Federal Confidentiality of Alcohol and Drug Abuse Patient Records regulations: The Federal rules restrict any use of the information to criminally investigate or prosecute any alcohol or drug abuse patient.[facility] HospitalIn the event this information is protected by the Federal Confidentiality of Alcohol and Drug Abuse Patient Records regulations: The Federal rules restrict any use of the information to criminally investigate or prosecute any alcohol or drug abuse patient.[facility] HospitalIn the event this information is protected by the Federal Confidentiality of Alcohol and Drug Abuse Patient Records regulations: The Federal rules restrict any use of the information to criminally investigate or prosecute any alcohol or drug abuse patient.[facility] HospitalIn the event this information is protected by the Federal Confidentiality of Alcohol and Drug Abuse Patient Records regulations: The Federal rules restrict any use of the information to criminally investigate or prosecute any alcohol or drug abuse patient.[facility] HospitalIn the event this information is protected by the Federal Confidentiality of Alcohol and Drug Abuse Patient Records regulations: The Federal rules restrict any use of the information to criminally investigate or prosecute any alcohol or drug abuse patient.[facility] HospitalIn the event this information is protected by the Federal Confidentiality of Alcohol and Drug Abuse Patient Records regulations: The Federal rules restrict any use of the information to criminally investigate or prosecute any alcohol or drug abuse patient.[facility] HospitalIn the event this information is protected by the Federal Confidentiality of Alcohol and Drug Abuse Patient Records regulations: The Federal rules restrict any use of the information to criminally investigate or prosecute any alcohol or drug abuse patient.[facility] HospitalIn the event this information is protected by the Federal Confidentiality of Alcohol and Drug Abuse Patient Records regulations: The Federal rules restrict any use of the information to criminally investigate or prosecute any alcohol or drug abuse patient.[facility] HospitalIn the event this information is protected by the Federal Confidentiality of Alcohol and Drug Abuse Patient Records regulations: The Federal rules restrict any use of the information to criminally investigate or prosecute any alcohol or drug abuse patient.[facility] HospitalIn the event this information is protected by the Federal Confidentiality of Alcohol and Drug Abuse Patient Records regulations: The Federal rules restrict any use of the information to criminally investigate or prosecute any alcohol or drug abuse patient.[facility] HospitalIn the event this information is protected by the Federal Confidentiality of Alcohol and Drug Abuse Patient Records regulations: The Federal rules restrict any use of the information to criminally investigate or prosecute any alcohol or drug abuse patient.[facility] HospitalIn the event this information is protected by the Federal Confidentiality of Alcohol and Drug Abuse Patient Records regulations: The Federal rules restrict any use of the information to criminally investigate or prosecute any alcohol or drug abuse patient.[facility] HospitalIn the event this information is protected by the Federal Confidentiality of Alcohol and Drug Abuse Patient Records regulations: The Federal rules restrict any use of the information to criminally investigate or prosecute any alcohol or drug abuse patient.[facility] HospitalIn the event this information is protected by the Federal Confidentiality of Alcohol and Drug Abuse Patient Records regulations: The Federal rules restrict any use of the information to criminally investigate or prosecute any alcohol or drug abuse patient.[facility] HospitalIn the event this information is protected by the Federal Confidentiality of Alcohol and Drug Abuse Patient Records regulations: The Federal rules restrict any use of the information to criminally investigate or prosecute any alcohol or drug abuse patient.[facility] HospitalIn the event this information is protected by the Federal Confidentiality of Alcohol and Drug Abuse Patient Records regulations: The Federal rules restrict any use of the information to criminally investigate or prosecute any alcohol or drug abuse patient.[facility] HospitalIn the event this information is protected by the Federal Confidentiality of Alcohol and Drug Abuse Patient Records regulations: The Federal rules restrict any use of the information to criminally investigate or prosecute any alcohol or drug abuse patient.[facility] HospitalIn the event this information is protected by the Federal Confidentiality of Alcohol and Drug Abuse Patient Records regulations: The Federal rules restrict any use of the information to criminally investigate or prosecute any alcohol or drug abuse patient.[facility] HospitalIn the event this information is protected by the Federal Confidentiality of Alcohol and Drug Abuse Patient Records regulations: The Federal rules restrict any use of the information to criminally investigate or prosecute any alcohol or drug abuse patient.[facility] HospitalIn the event this information is protected by the Federal Confidentiality of Alcohol and Drug Abuse Patient Records regulations: The Federal rules restrict any use of the information to criminally investigate or prosecute any alcohol or drug abuse patient.[facility] HospitalIn the event this information is protected by the Federal Confidentiality of Alcohol and Drug Abuse Patient Records regulations: The Federal rules restrict any use of the information to criminally investigate or prosecute any alcohol or drug abuse patient.[facility] HospitalIn the event this information is protected by the Federal Confidentiality of Alcohol and Drug Abuse Patient Records regulations: The Federal rules restrict any use of the information to criminally investigate or prosecute any alcohol or drug abuse patient.[facility] HospitalIn the event this information is protected by the Federal Confidentiality of Alcohol and Drug Abuse Patient Records regulations: The Federal rules restrict any use of the information to criminally investigate or prosecute any alcohol or drug abuse patient.[facility] HospitalIn the event this information is protected by the Federal Confidentiality of Alcohol and Drug Abuse Patient Records regulations: The Federal rules restrict any use of the information to criminally investigate or prosecute any alcohol or drug abuse patient.[facility] HospitalIn the event this information is protected by the Federal Confidentiality of Alcohol and Drug Abuse Patient Records regulations: The Federal rules restrict any use of the information to criminally investigate or prosecute any alcohol or drug abuse patient.[facility] HospitalIn the event this information is protected by the Federal Confidentiality of Alcohol and Drug Abuse Patient Records regulations: The Federal rules restrict any use of the information to criminally investigate or prosecute any alcohol or drug abuse patient.[facility] HospitalIn the event this information is protected by the Federal Confidentiality of Alcohol and Drug Abuse Patient Records regulations: The Federal rules restrict any use of the information to criminally investigate or prosecute any alcohol or drug abuse patient.[facility] HospitalIn the event this information is protected by the Federal Confidentiality of Alcohol and Drug Abuse Patient Records regulations: The Federal rules restrict any use of the information to criminally investigate or prosecute any alcohol or drug abuse patient.[facility]In the event this information is protected by the Federal Confidentiality of Alcohol and Drug Abuse Patient Records regulations: The Federal rules restrict any use of the information to criminally investigate or prosecute any alcohol or drug abuse patient.[facility] HospitalIn the event this information is protected by the Federal Confidentiality of Alcohol and Drug Abuse Patient Records regulations: The Federal rules restrict any use of the information to criminally investigate or prosecute any alcohol or drug abuse patient.[facility] HospitalIn the event this information is protected by the Federal Confidentiality of Alcohol and Drug Abuse Patient Records regulations: The Federal rules restrict any use of the information to criminally investigate or prosecute any alcohol or drug abuse patient.[facility] HospitalIn the event this information is protected by the Federal Confidentiality of Alcohol and Drug Abuse Patient Records regulations: The Federal rules restrict any use of the information to criminally investigate or prosecute any alcohol or drug abuse patient.[facility] HospitalIn the event this information is protected by the Federal Confidentiality of Alcohol and Drug Abuse Patient Records regulations: The Federal rules restrict any use of the information to criminally investigate or prosecute any alcohol or drug abuse patient.[facility] Reason for Visit (unrecogniz ed section and content) Reason Comments Acute Visit left eyelid swollen since yesterday Reason Comments Orders Labs Reason Comments Physical Reason Comments Orders Reason Onset Date Comments Imm/Inj Immunizations 10/06/2022 Flu vaccination Reason Onset Date Comments Refill Request 11/14/2022 Reason Comments Diabetic Eye Exam Reason Comments Follow Up 6 month Reason Comments Sore Throat ST, cough and conges tion x 1 day Reason Comments Results Reason Comments Refill Request Reason Comments Urinary Frequency With lower abd pain, burning x3 days Reason Comments ER F/U Diverticulitis Reason Comments Patient Update Specialty Diagnoses / Procedures Referred By Yonathan t Referred To Contact MR IMAGING Diagnoses Liver lesion, right lobe Procedures MRI LIVER WO/W IVCON MRI ABDOMEN W/O & W/CONTRAST MATERIAL Laurent Pagan MD [address] [place] [address] Mr Imaging [id number] Referral ID Status Reason Start Date Expiration Date V isits Requested Visits Authorized [id number] Closed Auto-Generate d Referral 08/15/2023 09/13/2024 1 1 Reason Comments Follow Up 6 month FU Reason Comments Results Reason Comments Ext / Labs Reason Onset Date Comments Refill Request 02/29/2024 Reason Comments Cough Productive cough, he adache, fatigue, nasal congestion, chest congestion x 2 days Reason Comments Appointment Reason Comments Recheck cough Reason Comments Outside Imaging Reason Comments Results Labs Reason Comments Physical Reason Comments Outside [id number] Ordered Reason Onset Date Comments Refill Request 09/18/2024 Specialty Diagnoses / Procedures [facility] To Contact MR IMAGING Diagnoses Pancreatic cyst Procedures MRI PANC/OTONIEL WO/W IVCON MRI ABDOMEN W/O & W/CONTRAST MATERIAL Laurent Pagan MD [address] [place] [address] Mr Imaging [id number] Referral ID Status Reason Start Date Expiration Date V isits Requested Visits Authorized [id number] Closed Auto-Generate d Referral 09/23/2024 07/26/2025 1 1 Reason Comments F/U 6 Month Reason Onset Date Comments Results 12/30/2024 Reason Comments Consult Outside Ophthalmolog y Reason Comments Forms Employment physical form Reason Comments Pain (Shoulder Pain) right x 1 day Reason Comments Ear Problem Clogged and ringing x 2 daysSome sinus congestion on and off Reason Comments Knee Pain Left knee pain start ed this morning Reason Onset Date Comments Population Health Navigation Outreach 06/10/2025 [employer] [place] Reason Comments Chest Congestion cough, green phlegm x 4 days Reason Comments ext document labs Reason Comments Yearly Exam Reason Comments left shoulder pain X 1 day Care Teams (unrecognized sec tion and content) Air Conditioning Unit Assembler Relationship Specialty Start Date End Date Laurent Pagan MD [address] [place] [address] PCP - General Family Practice 12/12/17 Air Conditioning Unit Assembler Relationship Specialty Start Date End Date Laurent Pagan MD [address] [place] [address] PCP - General Family Practice 12/12/17 Air Conditioning Unit Assembler Relationship Specialty Start Date End Date Laurent Pagan MD [address] [place] [address] PCP - General Family Medicine 12/12/17 Air Conditioning Unit Assembler Relationship Specialty Start Date End Date Laurent Pagan MD [address] [place] [address] PCP - General Family Medicine 12/12/17 Air Conditioning Unit Assembler Relationship Specialty Start Date End Date Laurent Pagan MD [address] [place] [address] PCP - General Family Medicine 12/12/17 Air Conditioning Unit Assembler Relationship Specialty Start Date End Date Laurent Pagan MD [address] [place] [address] PCP - General Family Medicine 12/12/17 Team Status: Active Member Role Status Dates Dr. Laurent Pagan MD Family Provider Active Dr. Laurent Pagan MD Primary Care Provider Active Team Status: Inactive Member Role Status Dates Dr. Laurent Pagan MD Primary Care Provider Active Dr. Sabrina Moran MD Attending Provider Active Team Status: Inactive Member Role Status Dates Dr. Laurent Pagan MD Primary Care Provider Active Dr. Sabrina Moran MD Attending Provider, Referring Provider Active Air Condition[employer] Unit Assembler Relationship Specialty Start Date End Date Laurent Pagan MD [address] [place] [address] PCP - General Family Medicine 12/12/17 Air Conditioning Unit Assembler Relationship Specialty Start Date End Date Laurent Pagan MD [address] [place] [address] PCP - General Family Medicine 12/12/17 Air Conditioning Unit Assembler Relationship Specialty Start Date End Date Laurent Pagan MD [address] [place] [address] PCP - General Family Medicine 12/12/17 Air Conditioning Unit Assembler Relationship Specialty Start Date End Date Laurent Pagan MD [address] [place] [address] PCP - General Family Medicine 12/12/17 Air Conditioning Unit Assembler Relationship Specialty Start Date End Date Laurent Pagan MD [address] [place] [address] PCP - General Family Medicine 12/12/17 Air Conditioning Unit Assembler Relationship Specialty Start Date End Date Laurent Pagan MD [address] [place] [address] PCP - General Family Medicine 12/12/17 Air Conditioning Unit Assembler Relationship Specialty Start Date End Date Laurent Pagan MD [address] [place] [address] PCP - General Family Medicine 12/12/17 Air Conditioning Unit Assembler Relationship Specialty Start Date End Date Laurent Pagan MD [address] [place] [address] PCP - General Family Medicine 12/12/17 Team Status: Inactive Member Role Status Dates Dr. Laurent Pagan MD Primary Care Provider Active Dr. John Jack DO Emergency Provider Active Air Conditioning Unit Assembler Relationship Specialty Start Date End Date Laurent Pagan MD [address] [place] [address] PCP - General Family Medicine 12/12/17 Air Conditioning Unit Assembler Relationship Specialty Start Date End Date Laurent Pagan MD [address] [place] [address] PCP - General Family Medicine 12/12/17 Air Conditioning Unit Assembler Relationship Specialty Start Date End Date Laurent Pagan MD [address] [place] [address] PCP - General Family Medicine 12/12/17 Air Conditioning Unit Assembler Relationship Specialty Start Date End Date Laurent Pagan MD [address] [place] [address] PCP - General Family Medicine 12/12/17 Air Conditioning Unit Assembler Relationship Specialty Start Date End Date Laurent Pagan MD [address] [place] [address] PCP - General Family Medicine 12/12/17 Team Status: Inactive Member Role Status Dates Dr. Laurent Pagan MD Primary Care Provider Active Dr. John Jack DO Attending Provider, Emergency Provider Active Air Conditioning Unit Assembler Relationship Specialty Start Date End Date Laurent Pagan MD [address] [place] [address] PCP - General Family Medicine 12/12/17 Air Conditioning Unit Assembler Relationship Specialty Start Date End Date Laurent Pagan MD [address] [place] [address] PCP - General Family Medicine 12/12/17 Air Conditioning Unit Assembler Relationship Specialty Start Date End Date Laurent Pagan MD [address] [place] [address] PCP - General Family Medicine 12/12/17 Air Conditioning Unit Assembler Relationship Specialty Start Date End Date Laurent Pagan MD [address] [place] [address] PCP - General Family Medicine 12/12/17 Air Conditioning Unit Assembler Relationship Specialty Start Date End Date Laurent Pagan MD [address] [place] [address] PCP - General Family Medicine 12/12/17 Air Conditioning Unit Assembler Relationship Specialty Start Date End Date Laurent Pagan MD [address] [place] [address] PCP - General Family Medicine 12/12/17 Air Conditioning Unit Assembler Relationship Specialty Start Date End Date Laurent Pagan MD [address] [place] [address] PCP - General Family Medicine 12/12/17 Air Conditioning Unit Assembler Relationship Specialty Start Date End Date Laurent Pagan MD [address] [place] [address] PCP - General Family Medicine 12/12/17 Air Conditioning Unit Assembler Relationship Specialty Start Date End Date Laurent Pagan MD [address] [place] [address] PCP - General Family Medicine 12/12/17 Air Conditioning Unit Assembler Relationship Specialty Start Date End Date Laurent Pagan MD [address] [place] [address] PCP - General Family Medicine 12/12/17 Air Conditioning Unit Assembler Relationship Specialty Start Date End Date Laurent Pagan MD [address] [place] [address] PCP - General Family Medicine 12/12/17 Air Conditioning Unit Assembler Relationship Specialty Start Date End Date Laurent Pagan MD [address] [place] [address] PCP - General Family Medicine 12/12/17 Air Conditioning Unit Assembler Relationship Specialty Start Date End Date Laurent Pagan MD [address] [place] [address] PCP - General Family Medicine 12/12/17 Air Conditioning Unit Assembler Relationship Specialty Start Date End Date Laurent Pagan MD [address] [place] [address] PCP - General Family Medicine 12/12/17 Air Conditioning Unit Assembler Relationship Specialty Start Date End Date Laurent Pagan MD [address] [place] [address] PCP - General Family Medicine 12/12/17 Air Conditioning Unit Assembler Relationship Specialty Start Date End Date Laurent Pagan MD [address] [place] [address] PCP - General Family Medicine 12/12/17 Air Conditioning Unit Assembler Relationship Specialty Start Date End Date Laurent Pagan MD [address] [place] [address] PCP - General Family Medicine 12/12/17 Air Conditioning Unit Assembler Relationship Specialty Start Date End Date Laurent Pagan MD [address] [place] [address] PCP - General Family Medicine 12/12/17 Rossy Pacheco, RUBY.CIRCULAR KNIFE CUTTER MACHINE [address] [place] [address] [employer] [facility] 09/21/24 Vanessa Berg PA-C [address] [place] [address] [employer] [facility] 09/21/24 Air Conditioning Unit Assembler Relationship Specialty Start Date End Date Laurent Pagan MD [address] [place] [address] PCP - General Family Medicine 12/12/17 Rossy Pacheco APRN.CIRCULAR KNIFE CUTTER MACHINE [address] [place] [address] [employer] [facility] 09/21/24 Vanessa Berg PA-C [address] [place] [address] [employer] [facility] 09/21/24 Air Conditioning Unit Assembler Relationship Specialty Start Date End Date Laurent Pagan MD [address] [place] [address] PCP - General Family Medicine 12/12/17 Rossy Pacheco APRN.CIRCULAR KNIFE CUTTER MACHINE [address] [place] [address] [employer] [facility] 09/21/24 Vanessa Berg PA-C [address] [place] [address] [employer] [facility] 09/21/24 Air Conditioning Unit Assembler Relationship Specialty Start Date End Date Laurent Pagan MD [address] [place] [address] PCP - General Family Medicine 12/12/17 Rossy Pacheco, RUBY.CIRCULAR KNIFE CUTTER MACHINE [address] [place] [address] [employer] [facility] 09/21/24 Vanessa Berg PA-C [address] [place] [address] [employer] [facility] 09/21/24 Air Conditioning Unit Assembler Relationship Specialty Start Date End Date Laurent Pagan MD [address] [place] [address] PCP - General Family Medicine 12/12/17 Rossy Pacheco, RUBY.CIRCULAR KNIFE CUTTER MACHINE [address] [place] [address] [employer] [facility] 09/21/24 Vanessa Berg PA-C [address] [place] [address] [employer] [facility] 09/21/24 Air Conditioning Unit Assembler Relationship Specialty Start Date End Date Laurent Pagan MD [address] [place] [address] PCP - General Family Medicine 12/12/17 Rossy Pacheco, MOTORCYCLE ENGINE ASSEMBLER.CIRCULAR KNIFE CUTTER MACHINE [address] [place] [address] [employer] [facility] 09/21/24 Vanessa Berg PA-C [address] [place] [address] [employer] [facility] 09/21/24 Air Conditioning Unit Assembler Relationship Specialty Start Date End Date Laurent Pagan MD [address] [place] [address] PCP - General Family Medicine 12/12/17 Rossy Pacheco APRN.CIRCULAR KNIFE CUTTER MACHINE [address] [place] [address] [employer] [facility] 09/21/24 Vanessa Berg PA-C [address] [place] [address] [employer] [facility] 09/21/24 Air Conditioning Unit Assembler Relationship Specialty Start Date End Date Laurent Pagan MD [address] [place] [address] PCP - General Family Medicine 12/12/17 Rossy Pacheco APRN.CIRCULAR KNIFE CUTTER MACHINE [address] [place] [address] [employer] [facility] 09/21/24 Vanessa Berg PA-C [address] [place] [address] [employer] [facility] 09/21/24 Air Conditioning Unit Assembler Relationship Specialty Start Date End Date Laurent Pagan MD [address] [place] [address] PCP - General Family Medicine 12/12/17 Rossy Pacheco MOTORCYCLE ENGINE ASSEMBLER.CIRCULAR KNIFE CUTTER MACHINE [address] [place] [address] [employer] [facility] 09/21/24 Vanessa Berg PA-C [address] [place] [address] [employer] [facility] 09/21/24 Team Status: Inactive Member Role Status Dates Dr. Laurent Pagan MD Primary Care Provider Active Start: November 04, 2024 End: November 04, 2024 Dr. Sabrina Moran MD Attending Provider Active Start: November 04, 2024 End: November 04, 2024 Dr. Sabrina Moran MD Referring Provider Active Start: November 04, 2024 End: November 04, 2024 Team Status: Inactive Member Role Status Dates Dr. Laurent Pagan MD Primary Care Provider Active Start: December 24, 2024 End: December 24, 2024 Dr. Sabrina Moran MD Attending Provider Active Start: December 24, 2024 End: December 24, 2024 Air Conditioning Unit Assembler Relationship Specialty Start Date End Date Laurent Pagan MD [address] [place], [place] [address] PCP - General Family Medicine 12/12/17 01/19/25 Laurent Pagan MD [address] [place], [place] 7[address] PCP - General Family Medicine 01/20/25 Rossy Pacheco APRN.CIRCULAR KNIFE CUTTER MACHINE [address] [place] [address] [id number] [facility] 09/21/24 Vanessa Berg PA-C [address] [place], [place] [address] [facility] 09/21/24 Air Conditioning Unit Assembler Relationship Specialty Start Date End Date Laurent Pagan MD [address] [place], [place] [id number] PCP - General Family Medicine 01/20/25 Rossy Pacheco APRN.CIRCULAR KNIFE CUTTER MACHINE [facility] [place], [place] [address] [facility] 09/21/24 Vanessa Berg PA-C [address] [place] [address] [facility] 09/21/24 Air Conditioning Unit Assembler Relationship Specialty Start Date End Date Laurent Pagan MD [address] [place] [address] PCP - General Family Medicine 01/20/25 Rossy Pacheco APRN.CIRCULAR KNIFE CUTTER MACHINE [address] [place] [address] [facility] 09/21/24 Vanessa Berg PA-C [address] [place] [address] [facility] 09/21/24 Air Conditioning Unit Assembler Relationship Specialty Start Date End Date Laurent Pagan MD [address] [place] [address] PCP - General Family Medicine 01/20/25 Rossy Pacheco APRN.CIRCULAR KNIFE CUTTER MACHINE [address] [place] [address] [facility] 09/21/24 Vanessa Berg PA-C [address] [place] [address] [facility] 09/21/24 Air Conditioning Unit Assembler Relationship Specialty Start Date End Date Laurent Pagan MD [address] [place] [address] PCP - General Family Medicine 01/20/25 Rossy Pacheco APRN.CIRCULAR KNIFE CUTTER MACHINE [address] [place] [address] [employer] [facility] 03/17/25 Vanessa Berg PA-C [address] [place] [address] [facility] 03/17/25 Team Status: Inactive Member Role Status Dates Dr. Laurent Pagan MD Primary Care Provider Active Start: March 26, 2025 End: March 26, 2025 Dr. Sabrina Moran MD Attending Provider Active Start: March 26, 2025 End: March 26, 2025 Sabrina PALACIO MD Referring Provider Active Start: March 26, 2025 End: March 26, 2025 Air Conditioning Unit Assembler Relationship Specialty Start Date End Date Laurent Pagan MD [address] [place] [address] PCP - General Family Medicine 01/20/25 Rossy Pacheco APRN.CIRCULAR KNIFE CUTTER MACHINE [address] [place] [address] [facility] 03/17/25 Vanessa Berg PA-C [address] [place], [place] 7[address] [facility] 03/[facility]/25 Air Conditioning Unit Assembler Relationship Specialty Start Date End Date Laurent Pagan MD [address] [place], [place] 140511 PCP - General Family Medicine 01/20/25 Rossy Pacheco APRN.CIRCULAR KNIFE CUTTER MACHINE [address] [place] [id number] [employer] [facility] 03/17/25 Vanessa Berg PA-C [address] [place] [address] [employer] [facility] 03/17/25 Air Conditioning Unit Assembler Relationship Specialty Start Date End Date Laurent Pagan MD [address] [place] [address] PCP - General Family Medicine 01/20/25 Rossy Pacheco APRN.CIRCULAR KNIFE CUTTER MACHINE [address] [place] [address] [employer] [facility] 03/17/25 Vanessa Berg PA-C [facility] [place] [address] [employer] [facility] 03/17/25 Air Conditioning Unit Assembler Relationship Specialty Start Date End Date Laurent Pagan MD [address] [place] [address] PCP - General Family Medicine 01/20/25 Rossy Pacheco APRN.CIRCULAR KNIFE CUTTER MACHINE [address] [place] [address] [employer] [facility] 03/17/25 Vanessa Berg PA-C [facility] [place] [address] [employer] [facility] 03/17/25 Air Conditioning Unit Assembler Relationship Specialty Start Date End Date Laurent Pagan MD [address] [place] [address] PCP - General Family Medicine 01/20/25 Rossy Pacheco APRN.CIRCULAR KNIFE CUTTER MACHINE [facility] [place] [address] [facility] 03/17/25 Vanessa Berg PA-C [address] [place] [address] [id number] [facility] 03/17/25 Air Conditioning Unit Assembler Relationship Specialty Start Date End Date Laurent Pagan MD [address] [place] [address] PCP - General Family Medicine 01/20/25 Rossy Pacheco APRN.CIRCULAR KNIFE CUTTER MACHINE [address] [place] [address] [facility] 03/17/25 Vanessa Berg PA-C [address] [place] [address] [facility] 03/17/25 Team Status: Active Member Role/Relationship Status Dates Dr. Laurent Pagan MD Primary Care Provider Active Team Status: Inactive Member Role/Relationship Status Dates Dr. Laurent Pagan MD Primary Care Provider Active Start: March 26, 2025 End: March 26, 2025 Dr. Sabrina Moran MD Attending Provider Active Start: March 26, 2025 End: March 26, 2025 Sabrina PALACIO MD Referring Provider Active Start: March 26, 2025 End: March 26, 2025 Team Status: Active Member Role/Relationship Status Dates Dr. Laurent Pagan MD Primary Care Provider Active Start: June 12, 2025 CHRISTEL Ramirez Attending Provider Active Start: June 12, 2025 CHRISTEL Ramirez Referring Provider Active Start: June 12, 2025 Team Status: Inactive Member Role/Relationship Status Dates Dr. Laurent Pagan MD Primary Care Provider Active Start: June 23, 2025 End: June 23, 2025 Dr. Sabrina Moran MD Attending Provider Active Start: June 23, 2025 End: June 23, 2025 Dr. Sabrina Moran MD Referring Provider Active Start: June 23, 2025 End: June 23, 2025 Air Conditioning Unit Assembler Relationship Specialty Start Date End Date Laurent Pagan MD [address] [place] [address] PCP - General Family Medicine 01/20/25 Rossy Pacheco APRN.CIRCULAR KNIFE CUTTER MACHINE [facility] [place] [address] [employer] [facility] 03/17/25 Vanessa Berg PA-C [facility] [place] [address] [facility] 03/17/25 Air Conditioning Unit Assembler Relationship Specialty Start Date End Date Laurent Pagan MD [address] [place] [address] PCP - General Family Medicine 01/20/25 Rossy Pacheco APRN.CIRCULAR KNIFE CUTTER MACHINE [address] [place] [address] [phone] [employer] [facility] 03/17/25 Vanessa Berg PA-C [address] [place] [address] [employer] [facility] 03/17/25 Air Conditioning Unit Assembler Relationship Specialty Start Date End Date Laurent Pagan MD [address] [place] [address] PCP - General Family Medicine 01/20/25 Rossy Pacheco APRN.CIRCULAR KNIFE CUTTER MACHINE [facility] [place] [address] [employer] [facility] 03/17/25 Vanessa Berg PA-C [address] [place] [address] [facility] 03/17/25 Team Status: Active Member Role/Relationship Status Dates Dr. Laurent Pagan MD Primary care physician Active Team Status: Inactive Member Role/Relationship Status Dates Dr. Laurent Pagan MD Primary care physician Active Start: June 23, 2025 End: June 23, 2025 Dr. Sabrina Moran MD Attending physician Active Start: June 23, 2025 End: June 23, 2025 Dr. Sabrina Moran MD Referring Provider Active Start: June 23, 2025 End: June 23, 2025 Team Status: Inactive Member Role/Relationship Status Dates Dr. Laurent Pagan MD Primary care physician Active Start: July 15, 2025 End: July 15, 2025 Dr. Sabrina Moran MD Attending physician Active Start: July 15, 2025 End: July 15, 2025 Dr. Sabrina Moran MD Referring Provider Active Start: July 15, 2025 End: July 15, 2025 Team Status: Active Member Role/Relationship Status Dates Dr. Laurent Pagan MD Primary care physician Active Start: August 11, 2025 CHRISTEL Ramirez Attending physician Active Start: August 11, 2025 CHRISTEL Ramirez Referring Provider Active Start: August 11, 2025 FOR RECORDS PERTAINING TO PATIENTS WHO ARE OR HAVE BEEN ENROLLED IN A CHEMICAL DEPENDENCY/SUBSTANCEABUSE PROGRAM, SOME INFORMATION MAY BE OMITTED. This clinical summary was aggregated from multiple sources. Caution should be exercised in using it in the provision of clinical care. This summary normalizes information from multiple sources, and as a consequence, information in this document may materially change the coding, format and clinical context of patient data. In addition, data may be omitted in some cases. CLINICAL DECISIONS SHOULD BE BASED ON THE PRIMARY CLINICAL RECORDS. [employer] provides no warranty or guarantee of the accuracy or completeness of information in this document.
[2025-09-06 09:25] LABS: AST(SGOT) 32 U/L (<=31); Alanine Aminotransfer ALT/SGPT 43 U/L (<=34); Albumin, Serum 4.3 g/dL (3.4-4.8); Alkaline Phosphatase 61 U/L (35-104); Anion Gap 15 (5-15); BUN 17 mg/dL (4-19); BUN/Creat Ratio 18.5 RATIO (10-20); Calcium,Total 9.9 mg/dL (7.6-11.0); Carbon Dioxide 23.8 mmol/L (21.0-32.0); Chloride 102 mmol/L (98-108); Estimated Creatinine Clearance 65.88 ml/min (50-250); Globulin 2.8 g/dL (2.2-4.2); Glucose 152 mg/dL (70-99); Lipase 25 U/L (13-75); Potassium 4.2 mmol/L (3.3-5.1)
[2025-09-06 10:12] VITALS: BP 141/72; PULSE 74; RESP 18; TEMP 36.6; O2SAT 99
== END 2025-09-06 10:18 | disposition home or self-care (01) ==
PROVIDERS: Emergency Provider Emergency Medicine; PCP Family Medicine; Visit Provider Emergency Medicine
DX: K52.9 Noninfective gastroenteritis and colitis, unspecified (principal); E11.9 Type 2 diabetes mellitus without complications; K57.30 Diverticulosis of large intestine without perforation or abscess without bleeding; I10 Essential (primary) hypertension; D72.829 Elevated white blood cell count, unspecified
CPT/HCPCS: 74177; 80053; 81001; 83690; 85025; 96360; 99283; Q9967; A4216

== ENCOUNTER → 2025-09-30 | Outpatient (CLI) | payer OTHER, MEDICARE, SELFPAY ==
[2025-09-30 15:18] LABS: Hematocrit 42.8 % (37-47); Hemoglobin 13.8 g/dL (12.0-15.0); Immature Granulocytes Count 0.250 X10^3/uL (0.0-0.0); Mean Corp Hgb Conc 32.2 g/dL (32-36); Mean Corpuscular Volume 92.4 fL (81-99); Mean Platelet Vol. 9.7 fl (6.2-12.0); NRBC Flagged by Analyzer 0 % (0-5); Platelet Count 265 K/mm3 (150-450); RBC Distribution Width CV 13.2 % (11.6-14.6); RBC Distribution Width SD 43.8 fl (35.1-43.9); Red Blood Count 4.63 M/mm3 (4.2-5.4); White Blood Count 8.8 K/mm3 (4.4-11.0)
[2025-09-30 15:50] LABS: AST(SGOT) 21 U/L (<=31); Alanine Aminotransfer ALT/SGPT 28 U/L (<=34); Albumin, Serum 4.0 g/dL (3.4-4.8); Alkaline Phosphatase 60 U/L (35-104); Anion Gap 11 (5-15); BUN 13 mg/dL (4-19); BUN/Creat Ratio 16.8 RATIO (10-20); Calcium,Total 9.4 mg/dL (7.6-11.0); Carbon Dioxide 26.0 mmol/L (21.0-32.0); Chloride 105 mmol/L (98-108); Globulin 2.7 g/dL (2.2-4.2); Glucose 81 mg/dL (70-99); Potassium 4.5 mmol/L (3.3-5.1)
== END | disposition home or self-care (01) ==
LOC: MTLAB 11:41
PROVIDERS: PCP Family Medicine; Referring Provider Internal Medicine Rheumatology; Visit Provider Internal Medicine Rheumatology
DX: M05.70 Rheumatoid arthritis with rheumatoid factor of unspecified site without organ or systems involvement (principal); Z79.899 Other long term (current) drug therapy
CPT/HCPCS: 36415; 80053; 85025